=== PATIENT | male | born 1955 | race Caucasian/White ===

== ENCOUNTER 2017-01-27 14:37 | Inpatient (IN) | payer MEDICAID, OTHER ==
[~2017-01-27] VITALS: Ht 170.2 cm; Wt 91.8 kg
[~2017-01-27 14:37] MED LIST: FURO20TA PO; HYDR-3535 PO; ISOS30TA3 PO; JANU100T PO; LISI-360 PO; LYRI75CA PO; METO25 PO; NOVO7030P2 SQ; NOVORP2 SQ; PLAV75TA29 PO; TAMS0.4C67 PO; ZANT150T2 PO; ZOCO40TA PO; [UNRECOGNIZED DRUG - CODE] PO
[2017-01-27 14:48] VITALS: BP 150/77; PULSE 82; RESP 15; TEMP 97.6; O2SAT 96
[2017-01-27] MEDS ORDERED: PIPERACIL-TAZO 4.5 GM PREMIX 100 ML IV STA (14:59)
[2017-01-27] MEDS ORDERED: SODIUM CHLOR 0.9% 1000 ML INJ 1,000 ML IV ONE (14:59)
[2017-01-27] MEDS ORDERED: VANCOMYCIN INJ 1,000 MG in SODIUM CHLOR 0.9% 250 ML INJ 250 ML IV STA (14:59)
[2017-01-27] MEDS ORDERED: UNKNOWN MEDS (15:01)
--- NOTE | 2017-01-27 15:04 | PD ---
HPI Chief Complaint: Skin Problem Time Seen by Provider: 14:59 Travel History International Travel<30 days: No Contact w/Intl Traveler<30days: No Traveled to known affect area: No History of Present Illness HPI 61-year-old male with history of multiple medical issues, diabetic, presents to the ER today after having been seen by urgent care, states that he had accidentally cut his left index finger with a knife 3 days ago and has been getting more swollen and painful. He denies any fevers or any other issues. States the swelling and pain has been going up his entire hand. He was seen by urgent care and they told him to come in for hand infection. Modifying Factors: None Associated Signs & Symptoms: Left index finger injury, finger swelling, pain Risk Factors: Diabetic PFSH Past Medical History Cancer: No Cardiovascular Problems: Yes (CAD) High Cholesterol: Yes Diabetes: Yes Patient Takes Glucophage: No Diminished Hearing: No Endocrine: Yes Gastrointestinal Disorders: Yes (GERD) GERD: Yes Genitourinary: Yes (HEMATURIA) Hepatitis: No Hiatal Hernia: No Hypertension: Yes Immune Disorder: No Musculoskeletal: Yes (CHRONIC BACK PAIN, ARTHRITIS) Neurologic: Yes (NEUROPATHY LEGS/ FEET) Psychiatric: No Respiratory: No Immunizations Current: No Thyroid Disease: No Past Surgical History AICD: No Eye Surgery: Yes (NEELA. CATARACT EXTR., NEELA. LASIK) Joint Replacement: No Pacemaker: No Other Surgery: Yes (L foot surgery) Social History Alcohol Use: No Tobacco Use: No (VAPOR) Substance Use: No Allergies-Medications (Allergen,Severity, Reaction): Coded Allergies: No Known Allergies (Verified , 01/27/17) Reported Meds & Prescriptions Reported Meds & Active Scripts Active Reported Lisinopril 10 Mg Tab Unknown Dose PO DAILY [Insulin 70 30] [Unknown Meds] Lyrica (Pregabalin) 75 Mg Cap 75 Mg PO DAILY Plavix (Clopidogrel Bisulfate) 75 Mg Tab 75 Mg PO DAILY Review of Systems Except as stated in HPI: all other systems reviewed are Neg Physical Exam Narrative GENERAL: Well-developed obese middle age white male patient currently in mild distress. Awake and oriented 3. SKIN: Focused skin assessment warm/dry. HEAD: Atraumatic. Normocephalic. EYES: Pupils equal and round. No scleral icterus. No injection or drainage. ENT: No nasal bleeding or discharge. Mucous membranes pink and moist. NECK: Trachea midline. No JVD. CARDIOVASCULAR: Regular rate and rhythm. No murmur appreciated. RESPIRATORY: No accessory muscle use. Clear to auscultation. Breath sounds equal bilaterally. GASTROINTESTINAL: Abdomen soft, non-tender, nondistended. Hepatic and splenic margins not palpable. MUSCULOSKELETAL: No obvious deformities. No clubbing. No cyanosis. No edema. EXTREMITIES: No clubbing, cyanosis, or edema. No joint tenderness, effusion, or edema noted. There is notable small puncture wound on the PIP area of the second left digit with surrounding erythema and intense erythema, tenderness to palpation and edema of the second digit with notable streaking up the hand. Pain with flexion. Concerning for tenosynovitis. NEUROLOGICAL: Awake and alert. No obvious cranial nerve deficits. Motor grossly within normal limits. Normal speech. PSYCHIATRIC: Appropriate mood and affect; insight and judgment normal. Data Data Last Documented VS Vital Signs Date Time Temp Pulse Resp B/P (MAP) Pulse Ox O2 Delivery O2 Flow Rate FiO2 01/27/17 15:29 73 20 147/70 (95) 97 01/27/17 14:48 97.6 Orders Orders Complete Blood Count With Diff (01/27/17 14:59) Comprehensive Metabolic Panel (01/27/17 14:59) Lactic Acid Sepsis Protocol (01/27/17 14:59) Blood Culture (01/27/17 14:59) Blood Glucose (01/27/17 14:59) Ecg Monitoring (01/27/17 14:59) Iv Access Insert/Monitor (01/27/17 14:59) Oximetry (01/27/17 14:59) Oxygen Administration (01/27/17 14:59) Piperacil-Tazo 4.5 Gm Premix (Zosyn 4.5 (01/27/17 14:59) Vancomycin Inj (Vancomycin Inj) (01/27/17 14:59) Sodium Chlor 0.9% 1000 Ml Inj (Ns 1000 M (01/27/17 14:59) Finger ([id number]) (01/27/17 15:04) Insulin Human Regular Inj (Novolin R Inj (01/27/17 16:00) Consult Hand Surgery (01/27/17 ) Admit Order (Ed Use Only) (01/27/17 16:06) Labs Laboratory Tests Test 01/27/17 15:15 01/27/17 15:20 White Blood Count 9.2 TH/MM3 Red Blood Count 4.11 MIL/MM3 Hemoglobin 11.8 GM/DL Hematocrit 34.5 % Mean Corpuscular Volume 83.9 FL Mean Corpuscular Hemoglobin 28.7 PG Mean Corpuscular Hemoglobin Concent 34.2 % Red Cell Distribution Width 12.8 % Platelet Count 213 TH/MM3 Mean Platelet Volume 8.5 FL Neutrophils (%) (Auto) 63.3 % Lymphocytes (%) (Auto) 29.6 % Monocytes (%) (Auto) 5.0 % Eosinophils (%) (Auto) 1.2 % Basophils (%) (Auto) 0.9 % Neutrophils # (Auto) 5.8 TH/MM3 Lymphocytes # (Auto) 2.7 TH/MM3 Monocytes # (Auto) 0.5 TH/MM3 Eosinophils # (Auto) 0.1 TH/MM3 Basophils # (Auto) 0.1 TH/MM3 CBC Comment DIFF FINAL Differential Comment Blood Urea Nitrogen 27 MG/DL Creatinine 1.90 MG/DL Total Protein 7.3 GM/DL Albumin 2.4 GM/DL Calcium Level 8.6 MG/DL Aspartate Amino Transf (AST/SGOT) 30 U/L Alanine Aminotransferase (ALT/SGPT) 19 U/L Total Bilirubin 0.5 MG/DL Sodium Level 127 MEQ/L Potassium Level 4.9 MEQ/L Chloride Level 94 MEQ/L Carbon Dioxide Level 24.8 MEQ/L Anion Gap 8 MEQ/L Estimat Glomerular Filtration Rate 36 ML/MIN Lactic Acid Level 0.9 mmol/L MDM Medical Decision Making Medical Screen Exam Complete: Yes Emergency Medical Condition: Yes Medical Record Reviewed: Yes Interpretation(s) Laboratory Tests Test 01/27/17 15:15 01/27/17 15:20 Red Blood Count 4.11 MIL/MM3 (4.50-5.90) Hemoglobin 11.8 GM/DL (13.0-17.0) Hematocrit 34.5 % (39.0-51.0) Blood Urea Nitrogen 27 MG/DL (7-18) Creatinine 1.90 MG/DL (0.60-1.30) Albumin 2.4 GM/DL (3.4-5.0) Sodium Level 127 MEQ/L (136-145) Chloride Level 94 MEQ/L (98-107) Estimat Glomerular Filtration Rate 36 ML/MIN (>89) Differential Diagnosis Tenosynovitis versus cellulitis versus sepsis Narrative Course Exam is concerning for tenosynovitis and IV antibiotics were initiated after cultures were done. X-ray and lab work was otherwise unremarkable except significant electrolyte abnormalities. He was given IV fluids, insulin, and IV antibiotics in the ER. Case was discussed with hand Dr. Batres who would like me to medically admit the patient and he states he will see the patient later. Case was then discussed with Dr. Carballo for admission. Diagnosis Primary Impression: Tenosynovitis of finger Admitting Information Admitting Physician Requests: Admit Susanne Bishop MD Jan 27, 2017 15:04
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
[2017-01-27 15:28] VITALS: O2SAT 94
[2017-01-27 15:29] VITALS: BP 147/70; PULSE 73; RESP 20; O2SAT 97
[2017-01-27 15:33] LABS: AUTOMATED NEUTROPHIL # 5.8 TH/MM3 (1.8-7.7); BASOPHIL # 0.1 TH/MM3 (0-0.2); BASOPHIL % 0.9 % (0.0-2.0); EOSINOPHIL # 0.1 TH/MM3 (0-0.4); EOSINOPHIL % 1.2 % (0.0-4.0); HEMATOCRIT 34.5 % (39.0-51.0); LYMPH % 29.6 % (9.0-44.0); LYMPHOCYTE # 2.7 TH/MM3 (1.0-4.8); MEAN CELL VOLUME 83.9 FL (80.0-100.0); MEAN CORPUSCULAR HEMOGLOBIN 28.7 PG (27.0-34.0); MEAN CORPUSCULAR HGB CONC 34.2 % (32.0-36.0); NEUT % 63.3 % (16.0-70.0); PLATELET COUNT 213 TH/MM3 (150-450); RED BLOOD COUNT 4.11 MIL/MM3 (4.50-5.90); RED CELL DISTRIBUTION WIDTH 12.8 % (11.6-17.2); WHITE BLOOD COUNT 9.2 TH/MM3 (4.0-11.0)
[2017-01-27] MEDS ORDERED: LISI10TA3 PO (15:36)
[2017-01-27] MEDS ORDERED: INSULIN (15:36)
[2017-01-27 15:45] LABS: CHLORIDE 94 MEQ/L (98-107); POTASSIUM 4.9 MEQ/L (3.5-5.1); SODIUM (NA) 127 MEQ/L (136-145)
[2017-01-27 15:46] LABS: HEMO FLAGS DIFF FINAL
[2017-01-27 15:49] LABS: ANION GAP 8 MEQ/L (5-15); BICARBONATE 24.8 MEQ/L (21.0-32.0); BLOOD UREA NITROGEN 27 MG/DL (7-18)
[2017-01-27 15:52] LABS: ALT (GPT) 19 U/L (12-78); AST (GOT) 30 U/L (15-37); GLOMERULAR FILTRATION RATE 36 ML/MIN (>89)
[2017-01-27 15:53] LABS: TOTAL BILIRUBIN ADULT 0.5 MG/DL (0.2-1.0)
[2017-01-27] MEDS ORDERED: INSULIN HUMAN REGULAR 1,000 UNITS/10 ML VIAL IV PUSH ONE (16:00)
[2017-01-27] MEDS ORDERED: SODIUM CHLOR 0.9% 1000 ML INJ 1,000 ML IV SCH (16:06)
[2017-01-27 16:11] LABS: ALKALINE PHOSPHATASE 147 U/L (45-117)
[2017-01-27] MEDS ORDERED: NALOXONE HCL 0.4 MG/ML AMP IV PRN (16:15)
[2017-01-27] MEDS ORDERED: SENNOSIDES 8.6 MG TAB PO PRN (16:15)
[2017-01-27] MEDS ORDERED: ACETAMINOPHEN 325 MG TAB PO PRN (16:15)
[2017-01-27] MEDS ORDERED: LACTULOSE SYRUP 20 GM/30 ML CUP PO PRN (16:15)
[2017-01-27] MEDS ORDERED: SODIUM CHLORIDE 0.9% FLUSH 10 ML FLUSH IV FLUSH PRN (16:15)
[2017-01-27] MEDS ORDERED: BISACODYL 10 MG SUPP RECTAL PRN (16:15)
[2017-01-27] MEDS ORDERED: GLUCAGON 1 MG/ML VIAL OTHER PRN (16:15)
[2017-01-27] MEDS ORDERED: ACETAMINOPHEN/HYDROcodone 325 MG/5 MG TAB PO PRN (16:15)
[2017-01-27] MEDS ORDERED: Vancomycin Consult Pharmacy 1 EA OTHER SCH (16:15)
[2017-01-27] MEDS ORDERED: DEXTROSE 50% IN WATER 50 ML VIAL(D50) IV PRN (16:15)
[2017-01-27] MEDS ORDERED: MAGNESIUM HYDROXIDE SUSP 30 ML CUP PO PRN (16:15)
[2017-01-27] MEDS ORDERED: ENOXAPARIN SODIUM 40 MG/0.4 ML SYRINGE SQ SCH (17:00)
--- NOTE | 2017-01-27 17:35 | HHI.HP ---
[facility] Service [facility] Primary Care Physician Rainer Farooq MD Admission Diagnosis left index tenosynovitis Diagnoses: (1) DM type 2 (diabetes mellitus, type 2) (2) PAD (peripheral artery disease) (3) Tenosynovitis of finger Diagnosis: Principal (4) ALISHA (acute kidney injury) Travel History International Travel<30 Days: No Contact w/Intl Traveler <30 Da: No Traveled to Known Affected Are: No History of Present Illness This is a very pleasant 61 year-old female with past medical history of diabetes and peripheral vascular disease who presents after cutting his left index finger on a knife 3 days ago. He started to develop redness and swelling 2 days ago. He started taking some Keflex that he had at home yesterday however he presented to the ER today as the finger continued to be swollen and painful. He describes a sharp pulsating pain which is 8 out of 10 in nature. He denies any fevers or chills. Denies any drainage from the finger. He states he cannot bend the finger. Review of Systems Constitutional: DENIES: Fever, Chills Eyes: COMPLAINS OF: Vision loss, DENIES: Diplopia Ears, nose, mouth, throat: DENIES: Tinnitus, Hoarseness Respiratory: DENIES: Cough, Shortness of breath Cardiovascular: DENIES: Chest pain, Palpitations Gastrointestinal: DENIES: Abdominal pain, Vomiting Genitourinary: DENIES: Urgency, Dysuria Musculoskeletal: DENIES: Back pain, Neck pain Integumentary: DENIES: Rash Hematologic/lymphatic: DENIES: Lymphadenopathy Neurologic: DENIES: Abnormal gait, Headache Psychiatric: DENIES: Anxiety, Confusion Past Family Social History Past Medical History Type 2 diabetes Diabetic retinopathy and he is legally blind Diabetic peripheral neuropathy Chronic kidney disease stage III Hypertension Peripheral arterial disease status post bypass in the right leg BPH and I can see from the records that he is supposed to be on Flomax History of hematuria Carpal tunnel syndrome Reported Medications Allergies Coded Allergies Type Severity Reaction Last Updated Verified No Known Allergies 01/27/17 Yes Active Scripts Medications Dose Route/Sig Max Daily Dose Days Date Category Lisinopril 10 Mg Tab Unknown Dose PO DAILY 01/27/17 Reported [Insulin 70 30] 01/27/17 Reported [Unknown Meds] 01/27/17 Reported Lyrica (Pregabalin) 75 Mg Cap 75 Mg PO DAILY 06/26/16 Reported Plavix (Clopidogrel Bisulfate) 75 Mg Tab 75 Mg PO DAILY 06/26/16 Reported Allergies: Coded Allergies: No Known Allergies (Verified , 01/27/17) Family History Diabetes in the mother Social History He does have vape Denies alcohol use Physical Exam Vital Signs Vital Signs Date Time Temp Pulse Resp B/P (MAP) Pulse Ox O2 Delivery O2 Flow Rate FiO2 01/27/17 15:29 73 20 147/70 (95) 97 01/27/17 15:28 94 01/27/17 14:48 97.6 82 15 150/77 (101) 96 Physical Exam GENERAL: Well-nourished, well-developed pleasant male patient. SKIN: Warm and dry. HEAD: Normocephalic. EYES: No scleral icterus. No injection or drainage. NECK: Supple, trachea midline. No JVD or lymphadenopathy. CARDIOVASCULAR: Regular rate and rhythm without murmurs, gallops, or rubs. RESPIRATORY: Breath sounds equal bilaterally. No accessory muscle use. GASTROINTESTINAL: Abdomen soft, non-tender, nondistended. EXTREMITIES: The patient's left index finger is swollen and erythematous and he has a small laceration on the anterior aspect, he is unable to flex the finger. NEUROLOGICAL: Awake, alert, and oriented x 3. Non-focal. Laboratory Laboratory Tests Test 01/27/17 15:15 01/27/17 15:20 White Blood Count 9.2 Red Blood Count 4.11 Hemoglobin 11.8 Hematocrit 34.5 Mean Corpuscular Volume 83.9 Mean Corpuscular Hemoglobin 28.7 Mean Corpuscular Hemoglobin Concent 34.2 Red Cell Distribution Width 12.8 Platelet Count 213 Mean Platelet Volume 8.5 Neutrophils (%) (Auto) 63.3 Lymphocytes (%) (Auto) 29.6 Monocytes (%) (Auto) 5.0 Eosinophils (%) (Auto) 1.2 Basophils (%) (Auto) 0.9 Neutrophils # (Auto) 5.8 Lymphocytes # (Auto) 2.7 Monocytes # (Auto) 0.5 Eosinophils # (Auto) 0.1 Basophils # (Auto) 0.1 CBC Comment DIFF FINAL Differential Comment Blood Urea Nitrogen 27 Creatinine 1.90 Random Glucose 515 Total Protein 7.3 Albumin 2.4 Calcium Level 8.6 Alkaline Phosphatase 147 Aspartate Amino Transf (AST/SGOT) 30 Alanine Aminotransferase (ALT/SGPT) 19 Total Bilirubin 0.5 Sodium Level 127 Potassium Level 4.9 Chloride Level 94 Carbon Dioxide Level 24.8 Anion Gap 8 Estimat Glomerular Filtration Rate 36 Lactic Acid Level 0.9 Date/Time Source Procedure Growth Status 01/27/17 15:20 Blood Peripheral Aerobic Blood Culture Pending Received 01/27/17 15:20 Blood Peripheral Anaerobic Blood Culture Pending Received Result Diagram: 01/27/17 1515 01/27/17 1515 Imaging X-ray images of left hand reviewed by me and shows left index soft tissue swelling Caprini VTE Risk Assessment Caprini VTE Risk Assessment: No/Low Risk (score <= 1) Caprini Risk Assessment Model Point Value = 1 Point Value = 2 Point Value = 3 Point Value = 5 Age 41-60 Minor surgery BMI > 25 kg/m2 Swollen legs Varicose veins or History of unexplained or recurrent spontaneous Oral contraceptives or hormone replacement Sepsis (< 1 month) Serious lung disease, including pneumonia (< 1 month) Abnormal pulmonary function Acute myocardial infarction Congestive heart failure (< 1 month) History of inflammatory bowel disease Medical patient at bed rest Age 61-74 Arthroscopic surgery Major open surgery (> 45 min) Laparoscopic surgery (> 45 min) Malignancy Confined to bed (> 72 hours) Immobilizing plaster cast Central venous access Age >= 75 History of VTE Family history of VTE Factor V Leiden Prothrombin [id number] Lupus anticoagulant Anticardiolipin antibodies Elevated serum homocysteine Heparin-induced thrombocytopenia Other congenital or acquired thrombophilia Stroke (< 1 month) Elective arthroplasty Hip, pelvis, or leg fracture Acute spinal cord injury (< 1 month) Prophylaxis Regimen Total Risk Factor Score Risk Level Prophylaxis Regimen 0-1 Low Early ambulation 2 Moderate Order ONE of the following: *Sequential Compression Device (SCD) *Heparin 5000 units SQ BID 3-4 Higher Order ONE of the following medications: *Heparin 5000 units SQ TID *Enoxaparin/Lovenox 40 mg SQ daily (WT < 150 kg, CrCl > 30 mL/min) *Enoxaparin/Lovenox 30 mg SQ daily (WT < 150 kg, CrCl > 10-29 mL/min) *Enoxaparin/Lovenox 30 mg SQ BID (WT < 150 kg, CrCl > 30 mL/min) AND/OR *Sequential Compression Device (SCD) 5 or more Highest Order ONE of the following medications: *Heparin 5000 units SQ TID (Preferred with Epidurals) *Enoxaparin/Lovenox 40 mg SQ daily (WT < 150 kg, CrCl > 30 mL/min) *Enoxaparin/Lovenox 30 mg SQ daily (WT < 150 kg, CrCl > 10-29 mL/min) *Enoxaparin/Lovenox 30 mg SQ BID (WT < 150 kg, CrCl > 30 mL/min) AND *Sequential Compression Device (SCD) Assessment and Plan Assessment and Plan --Left index finger infection and tenosynovitis status post cutting his finger with a knife 3 days ago - Will admit for IV antibiotics vancomycin and cefepime. Dr. Batres hand surgery has been consulted and will see the patient. -Type 2 diabetes uncontrolled with hyperglycemia - he has received 6 units regular insulin in the ER. We'll continue with NovoLog sliding scale. Start Levemir in the morning. -Diabetic retinopathy and he is legally blind -Diabetic peripheral neuropathy - continue Lyrica -Acute kidney injury on top of Chronic kidney disease stage III - give gentle IV fluids and will repeat BMP in the morning. -Pseudohyponatremia secondary to hyperglycemia -Hypertension - home dose of lisinopril needs to be reconciled. For now we'll give him 10 mg daily. -Peripheral arterial disease status post bypass in the right leg - continue Plavix. -DVT prophylaxis with SCDs Courtney Carballo MD Jan 27, 2017 17:35
[2017-01-27] MEDS: ACETAMINOPHEN/HYDROcodone 325 MG/7.5 MG TAB PO PRN ×2 (19:40→23:50)
[2017-01-27] MEDS: CEFEPIME INJ 1,000 MG in SODIUM CHLORIDE 0.9% INJ 100 ML IV SCH (19:40)
[2017-01-27 20:00] VITALS: BP 169/81; PULSE 76; RESP 20; TEMP 98; O2SAT 99
[2017-01-27] MEDS: DOCUSATE SODIUM 50 MG/SENNA 8.6 MG TAB PO SCH (20:46)
[2017-01-27] MEDS: SODIUM CHLORIDE 0.9% FLUSH 10 ML FLUSH IV FLUSH SCH (20:46)
[2017-01-27] MEDS: INSULIN ASPART SUPPLEMENTAL SCALE SQ SCH (20:50)
--- NOTE | 2017-01-27 21:18 | MB ---
cc: CLAY SINGLETARY MD DATE OF CONSULTATION 01/27/17 HISTORY OF PRESENT ILLNESS The patient is a 61-year-old [id number] gentleman who suffers from diabetic induced retinopathy and is legally blind who was admitted today with a left index finger infection. 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 He went to an outside urgent care and was referred here. PAST MEDICAL HISTORY 1. Coronary artery disease, 2. High cholesterol, 3. Diabetes, 4. GERD, 5. Hematuria, 6. Hypertension, 7. Chronic back and neck pain 8. Upper and lower extremity neuropathy PAST SURGICAL HISTORY 1. Bilateral cataracts, 2. bilateral LASIK 3. Left foot surgery. SOCIAL HISTORY He does not smoke. ALLERGIES NO KNOWN DRUG ALLERGIES. MEDICATIONS 1. Lisinopril. 2. Insulin. 3. Lyrica. 4. Plavix. REVIEW OF SYSTEMS Patient does not complain of any headaches or ringing in his ears. He does not complain of any cough, wheeze or shortness of breath. He does not complain of any chest pain or palpitations. He does not complain of any nausea, vomiting or abdominal pain. He is not complaining of any burning, frequency or urgency with urination. He is complaining of numbness and tingling in both hands and legs. This has been ongoing. He is not complaining of any lesions, rashes or eruptions on his skin. He is not complaining of any night sweats, fevers or chills. IMAGING STUDIES X-ray examination left hand was performed, reviewed, revealed no fracture or dislocation. No foreign bodies, slight soft tissue swelling. LABORATORY FINDINGS White blood cell count 9.2000. BUN, creatinine 27 and 1.90, random glucose was 515, however. PHYSICAL EXAMINATION GENERAL: He is well-developed, well-nourished in no apparent stress lying comfortably in his bed. He is awake, alert and oriented x3. He is very pleasant. VITAL SIGNS: Temperature is 97.6, blood pressure 147/70, heart rate 73, respiratory rate 20, pulse ox 97% on room air. EXTREMITIES: His left upper extremity is being elevated in a sling. His left index finger is slightly edematous and slightly erythematous volarly and has a small head in the PIP flexion crease. There is mild erythema and edema proximally which stops in the palm. There is no proximal streaking. There is no epitrochlear adenopathy palpable. It does cause him discomfort doing range of motion examination of his finger. His finger, hand and forearm are all soft. IMPRESSION Left index finger infection. PLAN I discussed this with the patient and his nurse and he provided informed verbal consent and at the bedside had a limited incision and drainage of the left index finger. I uses an 18 gauge blunt needle after sterilizing the skin and used this to elevate the eschar that had formed in the PIP joint and a few cc of obvious pus. This was sampled and passed off the field as a specimen. The patient had some immediate relief. The finger was then gently dressed. There was no bleeding. Capillary refill is less than 2 seconds at the fingertip. The patient tolerated the procedure well. MD HERIBERTO Qureshi III/ /8:36 PM /8:49 PM
[2017-01-28] VITALS: BP 191/99; PULSE 70; RESP 20; TEMP 97.6; O2SAT 99
[2017-01-28] MEDS ORDERED: ENALAPRILAT 2.5 MG/2 ML VIAL IV PUSH PRN (01:00)
[2017-01-28] MEDS: ACETAMINOPHEN/HYDROcodone 325 MG/7.5 MG TAB PO PRN ×2 (06:33→11:48)
[2017-01-28] MEDS: INSULIN ASPART SUPPLEMENTAL SCALE SQ SCH ×2 (06:36→12:14)
[2017-01-28 07:15] LABS: BICARBONATE 26.1 MEQ/L (21.0-32.0)
[2017-01-28 08:00] VITALS: BP 145/86; PULSE 67; RESP 17; TEMP 96.7; O2SAT 96
[2017-01-28] MEDS: CEFEPIME INJ 1,000 MG in SODIUM CHLORIDE 0.9% INJ 100 ML IV SCH (08:23)
[2017-01-28] MEDS: SODIUM CHLORIDE 0.9% FLUSH 10 ML FLUSH IV FLUSH SCH (08:24)
[2017-01-28] MEDS: DOCUSATE SODIUM 50 MG/SENNA 8.6 MG TAB PO SCH (08:31)
[2017-01-28] MEDS ORDERED: CLOPIDOGREL 75 MG TAB PO SCH (09:00)
[2017-01-28] MEDS ORDERED: LISINOPRIL 10 MG TAB PO SCH (09:00)
[2017-01-28] MEDS ORDERED: PREGABALIN 75 MG CAP PO SCH (09:00)
[2017-01-28] MEDS ORDERED: VANCOMYCIN INJ 1,250 MG in SODIUM CHLOR 0.9% 250 ML INJ 250 ML IV SCH (10:00)
[2017-01-28] MEDS ORDERED: VANCOMYCIN INJ 1,500 MG in SODIUM CHLORID 0.9% 500 ML INJ 500 ML IV SCH (11:00)
[2017-01-28 12:00] VITALS: BP 151/87; PULSE 69; RESP 17; TEMP 97.7; O2SAT 99
[2017-01-28] MEDS ORDERED: CIPR-9 PO (13:38)
--- NOTE | 2017-01-28 13:41 | HHI.PR ---
Subjective Remarks patient seen in follow up for left index tenosynovitis I and D yesterday with some improvement of ROM and pain per patient Objective Vitals Vital Signs Date Time Temp Pulse Resp B/P (MAP) Pulse Ox O2 Delivery O2 Flow Rate FiO2 01/28/17 12:00 97.7 69 17 151/87 (108) 99 01/28/17 08:00 96.7 67 17 145/86 (105) 96 01/28/17 00:00 97.6 70 20 191/99 (129) 99 01/27/17 20:00 98.0 76 20 169/81 (110) 99 01/27/17 18:14 01/27/17 15:29 73 20 147/70 (95) 97 01/27/17 15:28 94 01/27/17 14:48 97.6 82 15 150/77 (101) 96 I/O 01/27/17 01/27/17 01/27/17 01/28/17 01/28/17 01/28/17 07:00 15:00 23:00 07:00 15:00 23:00 Intake Total 300 ml 100 ml Balance 300 ml 100 ml Intake IV Total 300 ml 100 ml Result Diagram: 01/27/17 1515 01/28/17 0555 Imaging Last Impressions Finger X-Ray 01/27/17 1504 Signed Impressions: Service Date/Time: Friday, January 27, 2017 15:07 - CONCLUSION: 1. No fracture or dislocation. No foreign bodies. Slight soft tissue swelling. Gilberto Burnham MD Objective Remarks Diffuse evidence of Tinea GENERAL: This is a well-nourished, well-developed patient, complaining of hand swelling CARDIOVASCULAR: Regular rate and rhythm without murmurs, gallops, or rubs. RESPIRATORY: Clear to auscultation. Breath sounds equal bilaterally. No wheezes , rales, or rhonchi. GASTROINTESTINAL: Abdomen soft, non-tender, nondistended. Normal active bowel sounds MUSCULOSKELETAL: left first digit swelling and erythema, Extremities without clubbing, cyanosis, or edema. NEURO: Alert & Oriented x4 to person, place, time, situation. Moves all ext x4 A/P Problem List: (1) DM type 2 (diabetes mellitus, type 2) ICD Code: E11.9 - Type 2 diabetes mellitus without complications Plan: uncontrolled due to poor adherence and with neuropathy, retinopathy and nephropathy SSI, ADA diet, Insulin HG a1 c pending (2) PAD (peripheral artery disease) ICD Code: I73.9 - Peripheral vascular disease, unspecified Plan: cont plavix (3) Tenosynovitis of finger ICD Code: M65.9 - Synovitis and tenosynovitis, unspecified Status: Acute Plan: S/P I and D 01/27 blaum follow cultures to deescalate Cefepime and Vanco IV (4) ALISHA (acute kidney injury) ICD Code: N17.9 - Acute kidney failure, unspecified Plan: improved after IVF follow in patient with known DM Nephropathy avoid nephrotoxins (5) Tinea corporis ICD Code: B35.4 - Tinea corporis Plan: clotrimazole, control BG (6) Hyponatremia ICD Code: E87.1 - Hypo-osmolality and hyponatremia Plan: corrected with ivf and improved BG Discharge Planning maybe in am on po abx pending cultures Kadie Turcios MD Jan 28, 2017 13:41
--- NOTE | 2017-01-28 13:42 | HHI.PR ---
Subjective Remarks pt feels better re finger Objective Vital Signs Date Time Temp Pulse Resp B/P (MAP) Pulse Ox O2 Delivery O2 Flow Rate FiO2 01/28/17 12:00 97.7 69 17 151/87 (108) 99 01/28/17 08:00 96.7 67 17 145/86 (105) 96 01/28/17 00:00 97.6 70 20 191/99 (129) 99 01/27/17 20:00 98.0 76 20 169/81 (110) 99 01/27/17 18:14 01/27/17 15:29 73 20 147/70 (95) 97 01/27/17 15:28 94 01/27/17 14:48 97.6 82 15 150/77 (101) 96 I/O 01/27/17 01/27/17 01/27/17 01/28/17 01/28/17 01/28/17 07:00 15:00 23:00 07:00 15:00 23:00 Intake Total 300 ml 100 ml Balance 300 ml 100 ml Intake IV Total 300 ml 100 ml Result Diagram: 01/27/17 1515 01/28/17 0555 Objective Remarks left IF significantly improved; no erythema, no drainage; edema improved no streaking anywhere all surfaces soft Assessment and Plan Problem List: (1) Tenosynovitis of finger ICD Codes: M65.9 - Synovitis and tenosynovitis, unspecified Status: Acute Plan: rx cipro for 10 days keep finger clean Shant Batres III, MD Jan 28, 2017 13:42
[2017-01-28] MEDS ORDERED: CLOTRIMAZOLE 1% CREAM 15 GM TOPICAL SCH (13:45)
--- NOTE | 2017-01-28 14:24 | HHI.DCPOC ---
Discharge Care Plan Diagnosis: (1) DM type 2 (diabetes mellitus, type 2) (2) Tenosynovitis of finger Goals to Promote Your Health * To prevent worsening of your condition and complications * To maintain your health at the optimal level Directions to Meet Your Goals Take your medications as prescribed Follow your dietary instruction Follow activity as directed Keep your appointments as scheduled Take your immunizations and boosters as scheduled If your symptoms worsen call your PCP, if no PCP go to Urgent Care Center or Emergency Room Smoking is Dangerous to Your Health. Avoid second hand smoke Call the 24-hour hour crisis hotline for domestic abuse at Kadie Turcios MD Jan 28, 2017 14:24
[2017-01-28] MEDS ORDERED: CLOT1CRE8 TOPICAL (14:26)
--- NOTE | 2017-01-28 14:28 | HHI.DS ---
Discharge Summary Admission Date Jan 27, 2017 at 16:07 Discharge Date: Jan 28, 2017 Admitting Diagnosis left index tenosynovitis (1) DM type 2 (diabetes mellitus, type 2) ICD Code: E11.9 - Type 2 diabetes mellitus without complications (2) PAD (peripheral artery disease) ICD Code: I73.9 - Peripheral vascular disease, unspecified (3) Tenosynovitis of finger ICD Code: M65.9 - Synovitis and tenosynovitis, unspecified Status: Acute (4) ALISHA (acute kidney injury) ICD Code: N17.9 - Acute kidney failure, unspecified (5) Tinea corporis ICD Code: B35.4 - Tinea corporis (6) Hyponatremia ICD Code: E87.1 - Hypo-osmolality and hyponatremia Procedures I&D left index finger Brief History - From Admission This is a very pleasant 61 year-old female with past medical history of diabetes and peripheral vascular disease who presents after cutting his left index finger on a knife 3 days ago. He started to develop redness and swelling 2 days ago. He started taking some Keflex that he had at home yesterday however he presented to the ER today as the finger continued to be swollen and painful. He describes a sharp pulsating pain which is 8 out of 10 in nature. He denies any fevers or chills. Denies any drainage from the finger. He states he cannot bend the finger. CBC/BMP: 01/27/17 1515 01/28/17 0555 Significant Findings Laboratory Tests Test 01/27/17 15:15 01/27/17 15:20 01/28/17 05:55 Red Blood Count 4.11 MIL/MM3 (4.50-5.90) Hemoglobin 11.8 GM/DL (13.0-17.0) Hematocrit 34.5 % (39.0-51.0) Blood Urea Nitrogen 27 MG/DL (7-18) 22 MG/DL (7-18) Creatinine 1.90 MG/DL (0.60-1.30) 1.50 MG/DL (0.60-1.30) Random Glucose 515 MG/DL (74-106) 350 MG/DL (74-106) Albumin 2.4 GM/DL (3.4-5.0) Alkaline Phosphatase 147 U/L (45-117) Sodium Level 127 MEQ/L (136-145) Chloride Level 94 MEQ/L (98-107) Estimat Glomerular Filtration Rate 36 ML/MIN (>89) 48 ML/MIN (>89) Calcium Level 8.2 MG/DL (8.5-10.1) Imaging Last Impressions Finger X-Ray 01/27/17 1504 Signed Impressions: Service Date/Time: Friday, January 27, 2017 15:07 - CONCLUSION: 1. No fracture or dislocation. No foreign bodies. Slight soft tissue swelling. Gilberto Burnham MD PE at Discharge Diffuse evidence of Tinea GENERAL: This is a well-nourished, well-developed patient, complaining of hand swelling CARDIOVASCULAR: Regular rate and rhythm without murmurs, gallops, or rubs. RESPIRATORY: Clear to auscultation. Breath sounds equal bilaterally. No wheezes , rales, or rhonchi. GASTROINTESTINAL: Abdomen soft, non-tender, nondistended. Normal active bowel sounds MUSCULOSKELETAL: left first digit swelling and erythema, Extremities without clubbing, cyanosis, or edema. NEURO: Alert & Oriented x4 to person, place, time, situation. Moves all ext x4 Pt update on day of discharge Please see daily progress note Hospital Course Patient seen and evaluated in follow-up for left index tenosynovitis. Patient did have an I&D along with empiric antibiotics. He was monitored and recommend oral antibiotics and for outpatient follow-up. Is also recommended to continue aggressive management of his diabetes which he had been neglecting. He expressed understanding and the patient was discharged home Pt Condition on Discharge: Good Discharge Disposition: Discharge Home Discharge Time: <= 30 minutes Discharge Instructions DIET: Follow Instructions for: Heart Healthy Diet, Diabetic Diet Activities you can perform: Regular-No Restrictions Follow up Referrals: Hand Surgery - 2 Weeks with Shant Batres III, MD New Medications: Ciprofloxacin (Cipro) 500 Mg Tab 500 MG PO BID for xxxx, #20 TAB 0 Refills Clotrimazole Topical (Clotrimazole AF Topical) 1% Cream 1 APPLIC TOPICAL Q12HR for Infection, #1 TUBE Apply twice a day to skin for 10 days Continued Medications: Clopidogrel (Plavix) 75 Mg Tab 75 MG PO DAILY for Blood Clot Prevention, #30 TAB 0 Refills Lisinopril (Lisinopril) 10 Mg Tab Unknown Dose PO DAILY, #30 TAB 0 Refills Pregabalin (Lyrica) 75 Mg Cap 75 MG PO DAILY, #30 CAP 0 Refills [Insulin 70 30] () [Unknown Meds] () Kadie uTrcios MD Jan 28, 2017 14:28
[2017-01-28 17:33] LABS: HEMOGLOBIN A1a 1.6 %; HEMOGLOBIN A1b 1.1 %; HEMOGLOBIN Ao 71.1 %; HEMOGLOBIN F 2.3 %; HEMOGLOBIN LA1C 3.7 %; HEMOGLOBIN P3 5.9 %
[2017-01-30] MEDS ORDERED: PHARMACY ORDERED LAB ONE (10:45)
== END 2017-01-28 15:35 | disposition home or self-care (01) | DRG 558 ==
LOC: PHED 14:37 → PHEDA 16:07 → PH3B 18:14
PROVIDERS: ADMIT Hospitalist; ATTEND Hospitalist
PROC: 0H9GXZX Drainage of Left Hand Skin, External Approach, Diagnostic (ICD-10-PCS; principal; 2017-01-27)
DX: M65.842 Other synovitis and tenosynovitis, left hand (principal); E11.42 Type 2 diabetes mellitus with diabetic polyneuropathy; E11.22 Type 2 diabetes mellitus with diabetic chronic kidney disease; N17.9 Acute kidney failure, unspecified; E87.1 Hypo-osmolality and hyponatremia; N18.3 Chronic kidney disease, stage 3 (moderate); B35.4 Tinea corporis; I12.9 Hypertensive chronic kidney disease with stage 1 through stage 4 chronic kidney disease, or unspecified chronic kidney disease; E11.51 Type 2 diabetes mellitus with diabetic peripheral angiopathy without gangrene; E11.319 Type 2 diabetes mellitus with unspecified diabetic retinopathy without macular edema; Z79.4 Long term (current) use of insulin; S61.211A Laceration without foreign body of left index finger without damage to nail, initial encounter; W26.0XXA Contact with knife, initial encounter; H54.8 Legal blindness, as defined in USA; N40.0 Benign prostatic hyperplasia without lower urinary tract symptoms; E11.65 Type 2 diabetes mellitus with hyperglycemia; I25.10 Atherosclerotic heart disease of native coronary artery without angina pectoris; E78.00 Pure hypercholesterolemia, unspecified; K21.9 Gastro-esophageal reflux disease without esophagitis; M54.9 Dorsalgia, unspecified; M19.90 Unspecified osteoarthritis, unspecified site; G89.29 Other chronic pain; E66.9 Obesity, unspecified; Z68.31 Body mass index [BMI] 31.0-31.9, adult; Y93.89 Activity, other specified; Y92.89 Other specified places as the place of occurrence of the external cause
CPT/HCPCS: 73140; 80048; 80053; 82948; 83036; 83605; 85025; 87040; 87070; 87205; 96365; J0692; J1650; J1815; J2543; J3370; J7030; J7040; J7050

== ENCOUNTER 2017-02-08 13:41 | Emergency (ER) | payer OTHER ==
[~2017-02-08] VITALS: Ht 170.2 cm; Wt 95.0 kg
[~2017-02-08 13:41] MED LIST changes: +CIPR-9 PO; +CLOT1CRE8 TOPICAL; -FURO20TA PO; -HYDR-3535 PO; +INSULIN; -ISOS30TA3 PO; -JANU100T PO; -LISI-360 PO; +LISI10TA3 PO; -METO25 PO; -NOVO7030P2 SQ; -NOVORP2 SQ; -TAMS0.4C67 PO; +UNKNOWN MEDS; -ZANT150T2 PO; -ZOCO40TA PO; -[UNRECOGNIZED DRUG - CODE] PO
[2017-02-08 13:56] VITALS: BP 157/78; PULSE 78; RESP 20; TEMP 97.8; O2SAT 98
--- NOTE | 2017-02-08 14:58 | PD ---
HPI Chief Complaint: Skin Problem Time Seen by Provider: 14:54 Travel History International Travel<30 days: No Contact w/Intl Traveler<30days: No Traveled to known affect area: No History of Present Illness HPI Patient presents primarily for a refill of his antibiotics and to discuss an antifungal. Recently admitted to the hospital for left finger tenosynovitis and tinea corporis. Reports he does have follow-up with a hand surgeon. Denies any nausea vomiting diarrhea or fever. No new rashes. Reports that his finger is much better however it is still swollen PFSH Past Medical History Hx Anticoagulant Therapy: Yes Cancer: No Cardiovascular Problems: Yes (CAD) High Cholesterol: Yes Diabetes: Yes Patient Takes Glucophage: Yes Diminished Hearing: No Endocrine: Yes Gastrointestinal Disorders: Yes (GERD) GERD: Yes Genitourinary: Yes (HEMATURIA) Hepatitis: No Hiatal Hernia: No Hypertension: Yes Immune Disorder: No Musculoskeletal: Yes (CHRONIC BACK PAIN, ARTHRITIS) Neurologic: Yes (NEUROPATHY LEGS/ FEET) Psychiatric: No Respiratory: No Immunizations Current: No Thyroid Disease: No Past Surgical History AICD: No Eye Surgery: Yes (NEELA. CATARACT EXTR., NEELA. LASIK) Joint Replacement: No Pacemaker: No Other Surgery: Yes (L foot surgery) Social History Alcohol Use: No Tobacco Use: No (VAPOR) Substance Use: No Allergies-Medications (Allergen,Severity, Reaction): Coded Allergies: No Known Allergies (Verified , 02/08/17) Reported Meds & Prescriptions Reported Meds & Active Scripts Active Reported Lisinopril 10 Mg Tab Unknown Dose PO DAILY [Insulin 70 30] [Unknown Meds] Lyrica (Pregabalin) 75 Mg Cap 75 Mg PO DAILY Plavix (Clopidogrel Bisulfate) 75 Mg Tab 75 Mg PO DAILY Review of Systems General / Constitutional: No: Fever Eyes: No: Visual changes HENT: No: Headaches Cardiovascular: No: Chest Pain or Discomfort Respiratory: No: Shortness of Breath Gastrointestinal: No: Abdominal Pain Genitourinary: No: Dysuria Musculoskeletal: No: Pain Skin: No Rash Neurologic: No: Weakness Psychiatric: No: Depression Endocrine: No: Polydipsia Hematologic/Lymphatic: No: Easy Bruising Physical Exam Narrative GENERAL: Well-nourished, well-developed patient. SKIN: Focused skin assessment warm/dry. HEAD: Normocephalic. EYES: No scleral icterus. No injection or drainage. NECK: Supple, trachea midline. No JVD or lymphadenopathy. CARDIOVASCULAR: Regular rate and rhythm without murmurs, gallops, or rubs. RESPIRATORY: Breath sounds equal bilaterally. No accessory muscle use. GASTROINTESTINAL: Abdomen soft, non-tender, nondistended. MUSCULOSKELETAL: No cyanosis, or edema. BACK: Nontender without obvious deformity. No CVA tenderness. Left first finger is not cellulitic it is however edematous, tinea was noted to the groin region Data Data Last Documented VS Vital Signs Date Time Temp Pulse Resp B/P (MAP) Pulse Ox O2 Delivery O2 Flow Rate FiO2 02/08/17 13:56 97.8 78 20 157/78 (104) 98 MDM Medical Decision Making Medical Screen Exam Complete: Yes Emergency Medical Condition: Yes Differential Diagnosis Cellulitis, tenosynovitis, tinea corporis, medication noncompliance Narrative Course Assessment and plan discussed with patient at bedside Diagnosis Primary Impression: Tinea corporis Additional Impression: Stenosing tenosynovitis of finger of left hand Additional Instructions: Keep scheduled appointments with specialists. Return with any onset of new symptoms. Follow-up with PCP. Encouraged general wound care. Scripts Ketoconazole Topical (Ketoconazole Topical) 2% Cream 1 APPLIC TOPICAL BID for Fungal Infection, #15 GM 0 Refills Prov: Andre Castro MD 02/08/17 Ciprofloxacin (Cipro) 500 Mg Tab 500 MG PO BID for Infection for 10 Days, TAB 0 Refills Prov: Andre Castro MD 02/08/17 Disposition: 01 DISCHARGE HOME Condition: Good Andre Castro MD Feb 08, 2017 14:58
[2017-02-08] MEDS ORDERED: CIPR-9 PO (15:00)
[2017-02-08] MEDS ORDERED: KETO2CRE TOPICAL (15:00)
== END 2017-02-08 15:12 | disposition home or self-care (01) ==
LOC: PHED 13:41
DX: B35.4 Tinea corporis (principal); M65.9 Synovitis and tenosynovitis, unspecified; E11.9 Type 2 diabetes mellitus without complications; I10 Essential (primary) hypertension; I25.10 Atherosclerotic heart disease of native coronary artery without angina pectoris; M19.90 Unspecified osteoarthritis, unspecified site; G62.9 Polyneuropathy, unspecified
CPT/HCPCS: 99284

== ENCOUNTER 2018-01-15 09:36 | Inpatient (IN) ==
[2018-01-15 11:04] LABS: Baso % (Auto) 0.5 % (0.0-2.0); Eos # (Auto) 0.2 th/mm3 (0.0-0.4); Hemoglobin 10.8 gm/dL (13.0-17.0); Lymph # (Auto) 2.8 th/mm3 (1.0-4.8); Lymph % (Auto) 36.2 % (9.0-44.0); Mean Corpuscular HGB Conc 32.9 % (32.0-36.0); Mean Corpuscular Hemoglobin 28.2 pg (27.0-34.0); Mean Corpuscular Volume 85.8 fL (80.0-100.0); Mean Platelet Volume 7.2 fL (7.0-11.0); Mono # (Auto) 0.5 th/mm3 (0.0-0.9); Mono % (Auto) 6.8 % (0.0-8.0); Neut # (Auto) 4.3 th/mm3 (1.8-7.7); Neut % (Auto) 53.5 % (16.0-70.0); Platelet Count 295 th/mm3 (150-450); Red Blood Count 3.84 mil/mm3 (4.50-5.90); Red Cell Distribution Width 13.6 % (11.6-17.2); White Blood Count 7.8 th/mm3 (4.0-11.0)
[2018-01-15 11:16] LABS: Chloride 107 meq/L (98-107); Potassium 4.2 meq/L (3.5-5.1); Sodium 140 meq/L (136-145)
[2018-01-15 11:20] LABS: Albumin 2.3 g/dL (3.4-5.0); Anion Gap 6 meq/L (5-15); Blood Urea Nitrogen 26 mg/dL (7-18); Carbon Dioxide 26.9 meq/L (21.0-32.0); Glucose,Random 162 mg/dL (74-106)
[2018-01-15 11:23] LABS: Alanine Aminotransferase 18 U/L (12-78); Aspartate Aminotransferase 12 U/L (15-37); Glomerular Filtration Rate 41 mL/min (>89)
[2018-01-15 11:24] LABS: Total Protein 6.4 g/dL (6.4-8.2)
[2018-01-15 11:26] LABS: Alkaline Phosphatase 108 U/L (45-117)
[2018-01-15 11:28] LABS: Troponin I 0.08 ng/mL (0.02-0.05)
[2018-01-15] MEDS ORDERED: Aspirin 325 MG Tablet PO ONE (11:32)
--- NOTE | 2018-01-15 11:48 | XR ---
EXAM DATE: 01/15/2018 11:44 AM EDT AGE/SEX: 62 years / Male INDICATIONS: Cardiac Disease. Patient state he has had shortness of breath for 2 days. CLINICAL DATA: This is the patient's initial encounter. Patient reports that signs and symptoms have been present for 2 days and indicates a pain score of 1/10. MEDICAL/SURGICAL HISTORY: None. None. COMPARISON: No prior exams available for comparison. FINDINGS: A single AP view of the chest demonstrates the lungs to be symmetrically aerated without evidence of mass, infiltrate or effusion. Mild cardiomegaly. Osseous structures are intact. CONCLUSION: Mild cardiomegaly. Clear lungs. Electronically signed by: Bharath Trejo MD 01/15/2018 11:47 AM EDT
--- NOTE | 2018-01-15 13:04 | US ---
EXAM DATE: 01/15/2018 12:59 PM EDT AGE/SEX: 62 years / Male INDICATIONS: Bilateral leg pain. CLINICAL DATA: This is the patient's initial encounter. Patient reports that signs and symptoms have been present for 4 - 6 days and indicates a pain score of 4/10. MEDICAL/SURGICAL HISTORY: Congestive heart failure. Diabetes. Hypercholesterolemia. Hyperten tera. Peripheral artery disease. . COMPARISON: No prior exams available for comparison. TECHNIQUE: Venous ultrasound of both lower extremities was performed from the inguinal ligament to t he proximal calf. Real-time, color Doppler and spectral tracing, compression and augmentation techni ques were used. FINDINGS: Right Leg: Normal compression of the deep venous system from the inguinal region to the proximal stewart f. No echogenic clot is seen. Normal response of the venous system to augmentation and respiration. Left Leg: Normal compression of the deep venous system from the inguinal region to the proximal calf . No echogenic clot is seen. Normal response of the venous system to augmentation and respiration. Other: None. CONCLUSION: 1. Negative exam with no evidence of deep venous thrombosis. Electronically signed by: Toni Ambrocio MD 01/15/2018 1:03 PM EDT
--- NOTE | 2018-01-15 13:41 | ED ---
HPI General Chief complaint: Respiratory Symptoms Stated complaint: Hard to breathe Time Seen by Provider: 01/15/18 10:21 Source: patient Mode of arrival: ambulatory Limitations: no limitations History of Present Illness HPI narrative: Patient is a 62-year-old male who presents to the emergency room with complaints of dyspnea. Patient reports that for the past 2 days, he has been having dyspnea on exertion. Patient reports that he is a smoker with history of hypertension, chronic kidney disease stage III, PVD, PAD, CHF as well as COPD and insulin-dependent diabetes. Patient reports that symptoms began while he was taking in his garden 2 days ago, reports that every time he exerts himself, he gets short of breath. Patient reports that the only thing that makes his symptoms better is when he stops to take a deep breath. Patient reports that he is does have chest pain with his symptoms - reports chest pain only when he takes a deep breath or coughs- currently with no chest pain at this time. 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 Arriola Related Data Home Medications Medication Instructions Recorded Confirmed aspirin [Aspir-81] 325 mg PO DAILY 01/15/18 01/15/18 atorvastatin [Lipitor] 80 mg PO HS 01/15/18 01/15/18 clopidogrel [Plavix] 75 mg PO DAILY 01/15/18 01/15/18 fluticasone [Flonase Allergy 1 spray INTRANASAL DAILY 01/15/18 01/15/18 Relief] furosemide [Lasix] 20 mg PO DAILY 01/15/18 01/15/18 gabapentin [Neurontin] 100 mg PO BID 01/15/18 01/15/18 hydrocodone-acetaminophen [Naco] 1 tab PO Q6H 01/15/18 01/15/18 insulin NPH and regular human 40 unit SUB-Q BID 01/15/18 01/15/18 [Humulin 70/30 U-100 Insulin] insulin regular human [Humulin R 1 sliding scale dose SUB-Q UD 01/15/18 01/15/18 Regular U-100 Insuln] isosorbide mononitrate 30 mg PO DAILY 01/15/18 01/15/18 lidocaine [Lidocaine Pain Relief] 1 patch TOPICAL Q8H 01/15/18 01/15/18 lisinopril 10 mg PO DAILY 01/15/18 01/15/18 metoprolol tartrate 25 mg PO DAILY 01/15/18 01/15/18 pregabalin [Lyrica] 300 mg PO HS 01/15/18 01/15/18 ranitidine HCl [Zantac] 150 mg PO BID 01/15/18 01/15/18 sitagliptin-metformin [Janumet] 1 tab PO DAILY 01/15/18 01/15/18 tamsulosin [Flomax] 0.4 mg PO HS 01/15/18 01/15/18 Allergies Allergy/AdvReac Type Severity Reaction Status Date / Time No Known Allergies Allergy Unverified 01/15/18 09:41 Review of Systems ROS: all other systems reviewed are negative [facility] Medical History Medical History Congestive heart failure (Acute) Diabetes (Acute) High cholesterol (Acute) Hypertension (Acute) PAD (peripheral artery disease) (Acute) Social History Social History Substance History: No History of Abuse Smoking Status: Current every day smoker Tobacco Type: E-Cigarettes How Often Do You Have a Drink Containing Alcohol: Never Recent Travel in [facility] within the Last 8 Weeks: No Recent Out of Country Travel within the Last 8 Weeks: No Immunization History Tetanus Immunization: Unsure Hx Influenza Vaccine This Season: No Exam Narrative Exam Narrative: GENERAL: moderate distress SKIN: Focused skin assessment warm/dry. HEAD: Atraumatic. Normocephalic. EYES: Pupils equal and round. No scleral icterus. No injection or drainage. ENT: No nasal bleeding or discharge. Mucous membranes pink and moist. NECK: Trachea midline. No JVD. CARDIOVASCULAR: Regular rate and rhythm. No murmur appreciated. RESPIRATORY: No accessory muscle use. Clear to auscultation. Breath sounds equal bilaterally. GASTROINTESTINAL: Abdomen soft, non-tender, nondistended. Hepatic and splenic margins not palpable. MUSCULOSKELETAL: No obvious deformities. No clubbing. No cyanosis. No edema. NEUROLOGICAL: Awake and alert. No obvious cranial nerve deficits. Motor grossly within normal limits. Normal speech. PSYCHIATRIC: Appropriate mood and affect; insight and judgment normal. Course Initial Documented Vital Signs Temperature 97.7 F 01/15/18 09:38 Pulse Rate 93 H 01/15/18 09:38 Respiratory Rate 20 01/15/18 09:38 Blood Pressure 152/72 H 01/15/18 09:38 Pulse Oximetry 99 01/15/18 09:38 Last Documented Vital Signs Temperature 97.7 F 01/15/18 09:38 Pulse Rate 79 08/10/18 15:30 Respiratory Rate 18 01/15/18 15:30 Blood Pressure 151/69 H 01/15/18 15:30 Pulse Oximetry 96 01/15/18 11:40 Critical Care Time Critical Care Time: Yes Total Critical Care Time: 30 Attestation: Aggregate critical care time was 30 minutes. Time to perform other separately billable procedures was not included in the critical care time. My time did not include minutes spent treating any other patients simultaneously or on activities that did not directly contribute to the patient's treatment. The services I provided to this patient were to treat and/or prevent clinically significant deterioration that could result in: , decompensation I provided critical care services requiring my management, as noted below: Chart data review, documentation time, medication orders and management, vital sign assessments/reviewing monitor data, ordering and reviewing lab tests, ordering and interpreting/reviewing x-rays and diagnostic studies, care of the patient and discussion of the patient with the admitting physicians. Medical Decision Making MDM Narrative Medical decision making narrative: During the course of the patients emergency department visit, the patients history, examination, and differential diagnosis were reviewed with the patient. The patient was placed on a youth nutritional monitor with oximetry and frequent blood pressure monitoring. The patient had an IV access obtained and blood work sent for analysis. The patient was initially provided aspirin The patients laboratory studies were reviewed and remarkable for troponin of 0.08. Patient was given a dose of aspirin. Patient's d-dimer was elevated at 0.51, given his creatinine 1.7, a VQ scan as well as Doppler ultrasound was ordered. Radiology studies were reviewed and remarkable for x-ray which shows cardiomegaly as well as a Doppler ultrasound which is negative for DVT. VQ scan is pending. Patient does require admission to the hospital as he does have a positive troponin and has dyspnea on exertion concerning for acs. Patient is agreeable to admission to the hospital for further workup. repeat trop 0.08 - case reviewed with Dr. Turcios, will admit to her service and transfer to [place] [facility] Differential Diagnosis Differential Diagnosis: DVT, PE, ACS, arrhythmia, COPD exacerbation, CHF Medical Records Medical records reviewed: Yes I reviewed the patient's medical records. Lab Data Lab results reviewed: Yes I reviewed the patient's lab results. Result diagrams: 01/15/18 10:50 01/15/18 10:50 Lab Results 01/15/18 01/15/18 01/15/18 Range/Units 10:50 10:50 10:50 CBC w Diff Auto diff final WBC 7.8 (4.0-11.0) th/mm3 RBC 3.84 L (4.50-5.90) mil/mm3 Hgb 10.8 L (13.0-17.0) gm/dL Hct 33.0 L (39.0-51.0) % MCV 85.8 (80.0-100.0) fL MCH 28.2 (27.0-34.0) pg MCHC 32.9 (32.0-36.0) % RDW 13.6 (11.6-17.2) % Plt Count 295 (150-450) th/mm3 MPV 7.2 (7.0-11.0) fL Neut % (Auto) 53.5 (16.0-70.0) % Lymph % (Auto) 36.2 (9.0-44.0) % [place] % (Auto) 6.8 (0.0-8.0) % Eos % (Auto) 3.0 (0.0-4.0) % Baso % (Auto) 0.5 (0.0-2.0) % Neut # (Auto) 4.3 (1.8-7.7) th/mm3 Lymph # (Auto) 2.8 (1.0-4.8) th/mm3 [place] # (Auto) 0.5 (0.0-0.9) th/mm3 Eos # (Auto) 0.2 (0.0-0.4) th/mm3 Baso # (Auto) 0.0 (0.0-0.2) th/mm3 WBC Differential . Differential Comment . D-Dimer Quant (PE/DVT) 0.51 H (0.00-0.50) mg/L FEU Sodium 140 (136-145) meq/L Potassium 4.2 (3.5-5.1) meq/L Chloride 107 (98-107) meq/L Carbon Dioxide 26.9 (21.0-32.0) meq/L Anion Gap 6 (5-15) meq/L BUN 26 H (7-18) mg/dL Creatinine 1.70 H (0.60-1.30) mg/dL Estimated GFR 41 L (>89) mL/min Random Glucose 162 H (74-106) mg/dL Calcium 8.0 L (8.5-10.1) mg/dL Total Bilirubin 0.2 (0.2-1.0) mg/dL AST 12 L (15-37) U/L ALT 18 (12-78) U/L Alkaline Phosphatase 108 (45-117) U/L Troponin I 0.08 H (0.02-0.05) ng/mL Total Protein 6.4 (6.4-8.2) g/dL Albumin 2.3 L (3.4-5.0) g/dL 01/15/18 Range/Units 14:28 CBC w Diff WBC (4.0-11.0) th/mm3 RBC (4.50-5.90) mil/mm3 Hgb (13.0-17.0) gm/dL Hct (39.0-51.0) % MCV (80.0-100.0) fL MCH (27.0-34.0) pg MCHC (32.0-36.0) % RDW (11.6-17.2) % Plt Count (150-450) th/mm3 MPV (7.0-11.0) fL Neut % (Auto) (16.0-70.0) % Lymph % (Auto) (9.0-44.0) % [place] % (Auto) (0.0-8.0) % Eos % (Auto) (0.0-4.0) % Baso % (Auto) (0.0-2.0) % Neut # (Auto) (1.8-7.7) th/mm3 Lymph # (Auto) (1.0-4.8) th/mm3 [place] # (Auto) (0.0-0.9) th/mm3 Eos # (Auto) (0.0-0.4) th/mm3 Baso # (Auto) (0.0-0.2) th/mm3 WBC Differential Differential Comment D-Dimer Quant (PE/DVT) (0.00-0.50) mg/L FEU Sodium (136-145) meq/L Potassium (3.5-5.1) meq/L Chloride (98-107) meq/L Carbon Dioxide (21.0-32.0) meq/L Anion Gap (5-15) meq/L BUN (7-18) mg/dL Creatinine (0.60-1.30) mg/dL Estimated GFR (>89) mL/min Random Glucose (74-106) mg/dL Calcium (8.5-10.1) mg/dL Total Bilirubin (0.2-1.0) mg/dL AST (15-37) U/L ALT (12-78) U/L Alkaline Phosphatase (45-117) U/L Troponin I 0.08 H (0.02-0.05) ng/mL Total Protein (6.4-8.2) g/dL Albumin (3.4-5.0) g/dL Imaging Data Attestation: I personally reviewed and interpreted this imaging study as follows : Radiologist's impression: Chest X-Ray 01/15/18 10:46 CONCLUSION: Mild cardiomegaly. Clear lungs. Venous Doppler Study 01/15/18 11:30 CONCLUSION: 1. Negative exam with no evidence of deep venous thrombosis. Pulmonary Perfusion Imaging 01/15/18 11:31 CONCLUSION: 1. No evidence for pulmonary embolus. Discharge Plan Discharge Disposition Patient Disposition: 30 Still Patient Physicians Team ED Provider: Diya Ybarra Primary Care Provider: NON STAFF,PROVIDER Rxs /Orders / Referrals /Forms Prescriptions: No Action atorvastatin [Lipitor] 80 mg Tablet 80 mg PO HS RF: 0 lidocaine [Lidocaine Pain Relief] 4 % Adhesive Patch,Medicated 1 patch TOPICAL Q8H RF: 0 insulin NPH and regular human [Humulin 70/30 U-100 Insulin] 100 unit/mL (70-30 ) Suspension 40 unit SUB-Q BID RF: 0 clopidogrel [Plavix] 75 mg Tablet 75 mg PO DAILY RF: 0 aspirin [Aspir-81] 81 mg Tablet,Delayed Release (Dr/Ec) 325 mg PO DAILY RF: 0 tamsulosin [Flomax] 0.4 mg Capsule,Extended Release 24hr 0.4 mg PO HS RF: 0 hydrocodone-acetaminophen [Naco] 7.5-325 mg Tablet 1 tab PO Q6H RF: 0 ranitidine HCl [Zantac] 150 mg Tablet 150 mg PO BID RF: 0 lisinopril 10 mg Tablet 10 mg PO DAILY RF: 0 furosemide [Lasix] 20 mg Tablet 20 mg PO DAILY RF: 0 gabapentin [Neurontin] 100 mg Capsule 100 mg PO BID RF: 0 fluticasone [Flonase Allergy Relief] 50 mcg/actuation [place],Suspension 1 spray INTRANASAL DAILY RF: 0 pregabalin [Lyrica] 300 mg Capsule 300 mg PO HS RF: 0 sitagliptin-metformin [Janumet] 50-1,000 mg Tablet 1 tab PO DAILY RF: 0 isosorbide mononitrate 30 mg Tablet Extended Release 24 Hr 30 mg PO DAILY RF: 0 insulin regular human [Humulin R Regular U-100 Insuln] 100 unit/mL Solution 1 sliding scale dose SUB-Q UD RF: 0 metoprolol tartrate 25 mg Tablet 25 mg PO DAILY RF: 0 Status ED Status: With Doctor
--- NOTE | 2018-01-15 14:31 | NM ---
EXAM DATE: 01/15/2018 2:14 PM EDT AGE/SEX: 62 years / Male INDICATIONS: Dyspnea. CLINICAL DATA: This is the patient's initial encounter. Patient reports that signs and symptoms have been present for 1 day and indicates a pain score of 0/10. MEDICAL/SURGICAL HISTORY: Congestive heart failure. Diabetes mellitus type II. Hypertension. None. COMPARISON: HPO, CHEST 1V SINGLE AP, 01/15/2018. . DOSE: 1.5 mCi Tc99m DTPA aerosol 8.5 mCi Tc99m MAA IV TECHNIQUE: Following five minutes of tidal breathing of DTPA aerosol, planar images of the lungs wer e performed in eight projections. The patient was then injected with MAA, and eight-view perfusion s can was performed. FINDINGS: Ventilation images are unremarkable. The perfusion lung scan demonstrates a homogenous pattern of uptake in both lungs. No segmental or s ubsegmental defects are seen. CONCLUSION: 1. No evidence for pulmonary embolus. Electronically signed by: Jeremie Clark MD 01/15/2018 2:30 PM EDT
[2018-01-15] MEDS ORDERED: Heparin Drip 25,000 UNIT/250 ML BAG IV.CONT PRN (15:35)
[2018-01-15] MEDS ORDERED: Bisacodyl 10 MG Supp RECTAL PRN (15:57)
[2018-01-15] MEDS ORDERED: Acetaminophen 325 MG Tablet PO PRN (15:57)
[2018-01-15] MEDS ORDERED: Temazepam 15 MG Capsule PO PRN (15:57)
[2018-01-15 16:21] LABS: Activated Partial Thrombo Time 28.8 sec (24.3-30.1); Prothrombin Time 9.8 sec (9.8-11.6)
[2018-01-15] MEDS ORDERED: Dextrose 50% in Water 50 ML Vial IV.PUSH PRN (17:10)
--- NOTE | 2018-01-15 17:27 | P.HPIM ---
History of Present Illness Primary Care Physician: PROVIDER NON STAFF Chief Complaint: Shortness of breath History of Present Illness: Patient is a 62-year-old gentleman with a history of congestive heart failure and chronic tobaccoism who comes in with increased shortness of breath and increased work of breathing over the last 2 days. He was seen in the emergency room and given a nebulizer. He felt immediately improved. He has periodic coughing and shortness of breath dyspnea on exertion as well as 40 pound weight gain and had stopped taking his Lasix at home. Patient says he is not on any nebulizers because "I do not have lung problems ". Stopped taking the Lasix because "it was making him pee". Patient does follow-up with his primary care physician intermittently. He has been taking his diabetes medication and his Flonase and has reported blood pressure medications as well. This point the patient is recommended for further evaluation treatment due to his symptoms. On my review his EKG does not show any EKG changes consistent with ischemia however patient appears to have a congestive heart failure by exam and by x- ray. His x-ray on my review does show some pulmonary vascular congestion. Patient will need to be admitted in the hospital also because his cardiac enzymes are elevated at 0.08. - Diagnosis (1) SOB (shortness of breath) (2) Edema (3) DM2 (diabetes mellitus, type 2) (4) HTN (hypertension) (5) Elevated troponin Inpatient Certification: I certify that the inpatient services were ordered in accordance with Medicare regulations governing the order. This includes certification that hospital inpatient services are reasonable and necessary and in the case of services not specified as inpatient-only under 42 CFR 419.22(n), that they are appropriately provided as inpatient services in accordance to with the 2-midnight benchmark under 43 CFR 412.3(e) Estimated Total Length of Stay (Days): 2 Plans for Post Hospital Care: Not yet determined Review of Systems All other systems reviewed negative except as stated in HPI [facility] - History History Provided By: Patient - Medical History Medical History: Medical History (Last Updated 01/15/18 @ 10:14 by Dulce Watson RN) Congestive heart failure Diabetes High cholesterol Hypertension PAD (peripheral artery disease) - Surgical History Surgical History: Surgical History (Last Updated 01/15/18 @ 17:24 by Kadie Turcios MD) H/O vascular surgery - Family History Family History: Family History (Last Updated 01/15/18 @ 17:25 by Kadie Turcios MD) Other Diabetes - Tobacco History Tobacco Use In Past 30 Days: Yes Smoking Status: Current every day smoker (Previous [id number] tobacco) Tobacco Type: E-Cigarettes - Alcohol History How Often Do You Have a Drink Containing Alcohol: Never - Substance Use History Substance History: No History of Abuse - Travel History Recent Travel in the [place] Within the Last 8 Weeks: No Recent Travel Out of the Country Within the Last 8 Weeks: No - Immunization History Tetanus Immunization: Unsure Hx Influenza Vaccine This Season: No Medications and Allergies Active Medications: Active Medications Acetaminophen (Tylenol) 650 mg PO Q4H PRN PRN Reason: Temp > 100.4 Hydrocodone Bitart/Acetaminophen (Franklin 7.5/325) 1 tab PO Q6H GENET Al Hydroxide/Mg Hydroxide (Milk Of Magnesia Liq) 30 ml PO Q12H PRN PRN Reason: Mild Constipation Albuterol (Duoneb Neb (Genet)) 1 ampul NEB Q6HR WHILE AWAKE NEB GENET Aspirin (Ecotrin) 325 mg PO DAILY GENET Atorvastatin Calcium (Lipitor) 80 mg PO HS GENET Bisacodyl (Dulcolax Supp) 10 mg RECTAL DAILY PRN PRN Reason: SEVERE CONSITIPATION Clopidogrel Bisulfate (Plavix) 75 mg PO DAILY [facility] Dextrose (D50w Vial) 50 ml IV.PUSH UNSCH PRN PRN Reason: PER HYPOGLYCEMIA PROTOCOL Famotidine (Pepcid) 20 mg PO BID GENET Furosemide (Lasix Inj) 40 mg IV.PUSH BID@0900,1800 GENET Gabapentin (Neurontin) 100 mg PO BID GENET Glucagon (Glucagon Inj) 1 mg OTHER PRN PRN PRN Reason: for Hypoglycemia Protocol Heparin Sodium/Dextrose (Heparin/D5w 25,000 U/250 Ml) 25,000 unit in 250 mls @ 0 mls/hr IV.CONT TITRATE PRN; Protocol PRN Reason: Per Protocol Last Admin: 01/15/18 16:49 Dose: 1,000 units/hr, 10 mls/hr Insulin Aspart (Novolog Insulin Correctional Sugar Inj) 0 unit SQ ACHS AND 3AM GENET; Protocol Insulin Human Isoph/Insulin Regular (Novolin 70/30 Inj) 40 units SQ BID GENET Isosorbide Mononitrate (Imdur) 30 mg PO DAILY [facility] Lactulose (Lactulose Liq) 30 ml PO DAILY PRN PRN Reason: SEVERE CONSITIPATION Lisinopril (Prinivil) 10 mg PO DAILY [facility] Methylprednisolone Sodium Succinate (Solumedrol Inj) 40 mg IV.PUSH Q8HR [facility] Metoprolol Tartrate (Lopressor) 25 mg PO DAILY [facility] Non-Formulary Medication (Pregabalin) 300 mg PO HS [facility] Ondansetron HCl (Zofran Inj) 4 mg IV.PUSH Q6H PRN PRN Reason: NAUSEA OR VOMITING Senna/Docusate Sodium (Abiola-Colace) 1 tab PO BID [facility] Sennosides (Senokot) 17.2 mg PO Q12H PRN PRN Reason: Moderate Constipation Sodium Chloride (Ns Flush) 2 ml IV.FLUSH PRN PRN PRN Reason: FLUSH AFTER USING IV ACCESS Tamsulosin HCl (Flomax) 0.4 mg PO HS [facility] Temazepam (Restoril) 15 mg PO HS PRN PRN Reason: INSOMNIA Allergies Allergy/AdvReac Type Severity Reaction Status Date / Time No Known Allergies Allergy Unverified 01/15/18 09:41 Home Medications Medication Instructions Recorded Confirmed Type aspirin [Aspir-81] 325 mg PO DAILY 01/15/18 01/15/18 History atorvastatin [Lipitor] 80 mg PO HS 01/15/18 01/15/18 History clopidogrel [Plavix] 75 mg PO DAILY 01/15/18 01/15/18 History fluticasone [Flonase Allergy 1 spray INTRANASAL DAILY 01/15/18 01/15/18 History Relief] furosemide [Lasix] 20 mg PO DAILY 01/15/18 01/15/18 History gabapentin [Neurontin] 100 mg PO BID 01/15/18 01/15/18 History hydrocodone-acetaminophen [Franklin] 1 tab PO Q6H 01/15/18 01/15/18 History insulin NPH and regular human 40 unit SUB-Q BID 01/15/18 01/15/18 History [Humulin 70/30 U-100 Insulin] insulin regular human [Humulin R 1 sliding scale dose SUB-Q UD 01/15/18 History Regular U-100 Insuln] isosorbide mononitrate 30 mg PO DAILY 01/15/18 01/15/18 History lidocaine [Lidocaine Pain Relief] 1 patch TOPICAL Q8H 01/15/18 01/15/18 History lisinopril 10 mg PO DAILY 01/15/18 01/15/18 History metoprolol tartrate 25 mg PO DAILY 01/15/18 01/15/18 History pregabalin [Lyrica] 300 mg PO HS 01/15/18 01/15/18 History ranitidine HCl [Zantac] 150 mg PO BID 01/15/18 01/15/18 History sitagliptin-metformin [Janumet] 1 tab PO DAILY 01/15/18 01/15/18 History tamsulosin [Flomax] 0.4 mg PO HS 01/15/18 01/15/18 History Exam Vital signs: Vital Signs 01/15/18 09:38 01/15/18 10:55 01/15/18 11:00 Temperature 97.7 F Pulse Rate 93 H 76 Respiratory Rate 20 19 Blood Pressure 152/72 H Pulse Oximetry 99 99 01/15/18 11:10 01/15/18 11:20 01/15/18 11:40 Temperature Pulse Rate 86 85 88 Respiratory Rate 20 19 22 Blood Pressure 143/69 H Pulse Oximetry 96 01/15/18 13:00 01/15/18 14:36 01/15/18 15:00 Temperature Pulse Rate 88 92 H Respiratory Rate 15 Blood Pressure Pulse Oximetry 95 98 01/15/18 15:30 01/15/18 17:00 Temperature Pulse Rate 79 82 Respiratory Rate 18 Blood Pressure 151/69 H Pulse Oximetry 96 Intake & Output 01/14/18 01/15/18 01/15/18 18:59 06:59 18:59 Weight 100.7 kg Narrative: GENERAL: Well-nourished, well-developed patient. Coughing SKIN: Warm and dry. HEAD: Normocephalic. EYES: No scleral icterus. No injection or drainage. NECK: Supple, trachea midline. No JVD or lymphadenopathy. CARDIOVASCULAR: Regular rate and rhythm without murmurs, there is a S3 RESPIRATORY: Decreased breath sounds bilaterally with crackles in the base and scattered wheezes GASTROINTESTINAL: Abdomen soft, non-tender, nondistended. MUSCULOSKELETAL: No cyanosis, there is +2-3 edema worse on the right lower extremity (chronic per patient) BACK: Nontender without obvious deformity. No CVA tenderness. NEUROLOGICAL: Awake and alert. Cranial nerves II through XII intact. Motor and sensory grossly within normal limits. Five out of 5 muscle strength in all muscle groups. Normal speech. Results - Labs CBC & Chem 7: 01/15/18 10:50 01/15/18 10:50 Labs: Short CBC 01/15/18 Range/Units 10:50 WBC 7.8 (4.0-11.0) th/mm3 Hgb 10.8 L (13.0-17.0) gm/dL Hct 33.0 L (39.0-51.0) % Plt Count 295 (150-450) th/mm3 BMP 01/15/18 10:50 Sodium 140 Potassium 4.2 Chloride 107 Carbon Dioxide 26.9 BUN 26 H Creatinine 1.70 H Calcium 8.0 L Cardiac Enzymes 01/15/18 01/15/18 Range/Units 10:50 14:28 Troponin I 0.08 H 0.08 H (0.02-0.05) ng/mL Liver Function 01/15/18 Range/Units 10:50 Total Bilirubin 0.2 (0.2-1.0) mg/dL AST 12 L (15-37) U/L ALT 18 (12-78) U/L Alkaline Phosphatase 108 (45-117) U/L Albumin 2.3 L (3.4-5.0) g/dL - Imaging Impressions Chest X-Ray 01/15/18 10:46 CONCLUSION: Mild cardiomegaly. Clear lungs. Venous Doppler Study 01/15/18 11:30 CONCLUSION: 1. Negative exam with no evidence of deep venous thrombosis. Pulmonary Perfusion Imaging 01/15/18 11:31 CONCLUSION: 1. No evidence for pulmonary embolus. Caprini VTE Risk Assessment Caprini VTE Risk Assessment: Moderate/High Risk (score >= 2) Caprini Risk Assessment Model: Point Value = 1 Point Value = 2 Point Value = 3 Point Value = 5 Age 41-60 Minor surgery BMI > 25 kg/m2 Swollen legs Varicose veins or History of unexplained or recurrent spontaneous Oral contraceptives or hormone replacement Sepsis (< 1 month) Serious lung disease, including pneumonia (< 1 month) Abnormal pulmonary function Acute myocardial infarction Congestive heart failure (< 1 month) History of inflammatory bowel disease Medical patient at bed rest Age 61-74 Arthroscopic surgery Major open surgery (> 45 min) Laparoscopic surgery (> 45 min) Malignancy Confined to bed (> 72 hours) Immobilizing plaster cast Central venous access Age >= 75 History of VTE Family history of VTE Factor V Leiden Prothrombin [id number] Lupus anticoagulant Anticardiolipin antibodies Elevated serum homocysteine Heparin-induced thrombocytopenia Other congenital or acquired thrombophilia Stroke (< 1 month) Elective arthroplasty Hip, pelvis, or leg fracture Acute spinal cord injury (< 1 month) Prophylaxis Regimen: Total Risk Factor Score Risk Level Prophylaxis Regimen 0-1 Low Early ambulation 2 Moderate Order ONE of the following: *Sequential Compression Device (SCD) *Heparin 5000 units SQ BID 3-4 Higher Order ONE of the following medications: *Heparin 5000 units SQ TID *Enoxaparin/Lovenox 40 mg SQ daily (WT < 150 kg, CrCl > 30 mL/min) *Enoxaparin/Lovenox 30 mg SQ daily (WT < 150 kg, CrCl > 10-29 mL/min) *Enoxaparin/Lovenox 30 mg SQ BID (WT < 150 kg, CrCl > 30 mL/min) AND/OR *Sequential Compression Device (SCD) 5 or more Highest Order ONE of the following medications: *Heparin 5000 units SQ TID (Preferred with Epidurals) *Enoxaparin/Lovenox 40 mg SQ daily (WT < 150 kg, CrCl > 30 mL/min) *Enoxaparin/Lovenox 30 mg SQ daily (WT < 150 kg, CrCl > 10-29 mL/min) *Enoxaparin/Lovenox 30 mg SQ BID (WT < 150 kg, CrCl > 30 mL/min) AND *Sequential Compression Device (SCD) Assessment and Plan - Assessment (1) SOB (shortness of breath) Code(s): R06.02 - Shortness of breath Status: Acute Plan: Multifactorial due to CHF and probable some underlying obstructive pulmonary disease Patient will need pulmonary function testing We will continue with duo nebs by inhalation and IV steroids We will also diurese patient follow-up echo and BNP (2) Edema Code(s): R60.9 - Edema, unspecified Status: Acute Plan: Likely due to CHF and exacerbation related to nonadherence with Lasix Patient says his weight has increased over 40 pounds in the last month We will aggressively diurese the patient and provide patient education echocardiogram pending rule out acute systolic versus diastolic heart (3) DM2 (diabetes mellitus, type 2) Code(s): E11.9 - Type 2 diabetes mellitus without complications Status: Acute Plan: Continue with sliding scale insulin Diabetic diet (4) HTN (hypertension) Code(s): I10 - Essential (primary) hypertension Status: Acute Plan: Currently controlled on home medications of isosorbide, lisinopril, metoprolol (5) Elevated troponin Code(s): R74.8 - Abnormal levels of other serum enzymes Status: Acute Plan: Continue with Phalen's, likely cardiac distention secondary to CHF No evidence of ischemia on my review of the EKG
[2018-01-15] MEDS ORDERED: Enoxaparin Inj 40 MG/0.4 ML Syringe SQ ONE (18:00)
[2018-01-15] MEDS ORDERED: Pregabalin 300 MG Capsule PO SCH (21:00)
[2018-01-15] MEDS ORDERED: Gabapentin 100 MG Capsule PO SCH (21:00)
[2018-01-15 21:10] LABS: Troponin I 0.08 ng/mL (0.02-0.05)
[2018-01-15] MEDS: Senna/Docusate Sodium 8.6/50 MG Tablet PO SCH (21:34)
[2018-01-15] MEDS: Famotidine 20 MG Tablet PO SCH (21:34)
[2018-01-15] MEDS: MethylPREDNISolone Sod Succinate Inj 40 MG/ML Vial IV.PUSH SCH (21:34)
[2018-01-15] MEDS: Insulin NovoLOG Aspart Correctional Sugar Inj SQ SCH (21:36)
[2018-01-16] MEDS: Insulin NovoLOG Aspart Correctional Sugar Inj SQ SCH ×4 (03:03→17:18)
[2018-01-16] MEDS: MethylPREDNISolone Sod Succinate Inj 40 MG/ML Vial IV.PUSH SCH ×2 (05:59→14:30)
[2018-01-16 06:05] LABS: Baso % (Auto) 0.6 % (0.0-2.0); Eos # (Auto) 0.1 th/mm3 (0.0-0.4); Eos % (Auto) 0.8 % (0.0-4.0); Hematocrit 35.4 % (39.0-51.0); Hemoglobin 11.4 gm/dL (13.0-17.0); Lymph # (Auto) 0.9 th/mm3 (1.0-4.8); Mean Corpuscular HGB Conc 32.3 % (32.0-36.0); Mean Corpuscular Hemoglobin 27.8 pg (27.0-34.0); Mean Corpuscular Volume 85.8 fL (80.0-100.0); Mean Platelet Volume 7.8 fL (7.0-11.0); Mono % (Auto) 0.5 % (0.0-8.0); Neut # (Auto) 6.2 th/mm3 (1.8-7.7); Neut % (Auto) 85.1 % (16.0-70.0); Platelet Count 306 th/mm3 (150-450); Red Blood Count 4.12 mil/mm3 (4.50-5.90); Red Cell Distribution Width 13.9 % (11.6-17.2); White Blood Count 7.3 th/mm3 (4.0-11.0)
[2018-01-16 06:07] LABS: Potassium 4.5 meq/L (3.5-5.1)
[2018-01-16 06:10] LABS: Calcium 8.7 mg/dL (8.5-10.1)
--- NOTE | 2018-01-16 07:51 | ECG ---
Date Performed: 01/15/2018 Time Performed: 20:32:46 PTAGE: 62 years EKG: Sinus rhythm ANTERIOR MYOCARDIAL INFARCTION PROBABLE INFERIOR MYOCARDIAL INFARCTION PREVIOUS TRACING : 01/15/2018 10.57 DOCTOR: Álvaro Hernandez Interpretating Date/Time 01/16/2018 07:51:31
[2018-01-16] MEDS ORDERED: Metoprolol Tartrate 25 MG Tablet PO SCH (09:00)
[2018-01-16] MEDS ORDERED: Isosorbide Mononitrate 30 MG ER 24HR Tablet (Imdur) PO SCH (09:00)
[2018-01-16] MEDS ORDERED: Lisinopril 10 MG Tablet PO SCH (09:00)
[2018-01-16] MEDS: Senna/Docusate Sodium 8.6/50 MG Tablet PO SCH (09:03)
[2018-01-16] MEDS: Famotidine 20 MG Tablet PO SCH (09:03)
--- NOTE | 2018-01-16 09:21 | ECG ---
Date Performed: 01/15/2018 Time Performed: 10:57:46 PTAGE: 62 years EKG: Sinus rhythm ANTERIOR MYOCARDIAL INFARCTION PROBABLE INFERIOR MYOCARDIAL INFARCTION ABNORMAL ECG PREVIOUS TRACING : 08/30/2013 10.39 DOCTOR: Álvaro Hernandez Interpretating Date/Time 01/16/2018 09:19:52
--- NOTE | 2018-01-16 10:26 | P.DS ---
Date of admission: 01/15/18 15:37 Primary care physician: PROVIDER NON STAFF Brief History from admission: Patient is a 62-year-old gentleman with a history of congestive heart failure and chronic tobaccoism who comes in with increased shortness of breath and increased work of breathing over the last 2 days. He was seen in the emergency room and given a nebulizer. He felt immediately improved. He has periodic coughing and shortness of breath dyspnea on exertion as well as 40 pound weight gain and had stopped taking his Lasix at home. Patient says he is not on any nebulizers because "I do not have lung problems ". Stopped taking the Lasix because "it was making him pee". Patient does follow-up with his primary care physician intermittently. He has been taking his diabetes medication and his Flonase and has reported blood pressure medications as well. This point the patient is recommended for further evaluation treatment due to his symptoms. On my review his EKG does not show any EKG changes consistent with ischemia however patient appears to have a congestive heart failure by exam and by x- ray. His x-ray on my review does show some pulmonary vascular congestion. Patient will need to be admitted in the hospital also because his cardiac enzymes are elevated at 0.08. DS: Diagnosis - Discharge Diagnosis (1) SOB (shortness of breath) Status: Acute (2) Edema Status: Acute (3) DM2 (diabetes mellitus, type 2) Status: Acute (4) HTN (hypertension) Status: Acute (5) Elevated troponin Status: Acute (6) CHF (congestive heart failure), NYHA class IV Status: Acute DS: Medications - Discharge Medications Prescriptions: ipratropium bromide 0.125 ml/kg INHALATION Q8H #90 ml sodium chloride [[place] Nasal] 1 spray INTRANASAL Q4H #1 ml DS: Summary Hospital Course: x - Time Spent with Patient Total time spent providing and/or coordinating discharge services: Greater than 30 minutes - Quality: VTE Deep Vein Thrombosis/Pulmonary Embolism Present on Admission: No Exam Vital signs: Vital Signs 01/15/18 10:55 01/15/18 11:00 01/15/18 11:10 Temperature Pulse Rate 76 86 Respiratory Rate 19 20 Blood Pressure Pulse Oximetry 99 01/15/18 11:20 01/15/18 11:40 01/15/18 12:40 Temperature Pulse Rate 85 82 84 Respiratory Rate 19 18 20 Blood Pressure 143/69 H 122/64 Pulse Oximetry 99 97 01/15/18 13:00 01/15/18 14:36 01/15/18 15:00 Temperature Pulse Rate 88 92 H Respiratory Rate 15 Blood Pressure Pulse Oximetry 95 98 01/15/18 15:30 01/15/18 17:00 01/15/18 17:50 Temperature Pulse Rate 82 82 88 Respiratory Rate 22 18 Blood Pressure 151/69 H 151/74 H Pulse Oximetry 97 96 97 01/15/18 18:32 01/15/18 19:08 01/15/18 19:09 Temperature Pulse Rate 82 Respiratory Rate 20 Blood Pressure 167/74 H Pulse Oximetry 94 L 95 94 L 01/15/18 19:11 01/15/18 19:13 01/15/18 20:00 Temperature 98.7 F Pulse Rate 87 82 82 Respiratory Rate 25 H Blood Pressure Pulse Oximetry 94 L 01/16/18 00:00 01/16/18 01:00 01/16/18 02:58 Temperature 97.7 F Pulse Rate 85 Respiratory Rate 23 19 Blood Pressure 147/71 H Pulse Oximetry 95 99 01/16/18 02:59 01/16/18 04:00 01/16/18 06:34 Temperature 97.7 F Pulse Rate 84 74 Respiratory Rate 18 0 L Blood Pressure 141/75 H Pulse Oximetry 91 L 01/16/18 07:00 01/16/18 07:59 01/16/18 08:00 Temperature 97.6 F Pulse Rate 77 82 Respiratory Rate 20 16 Blood Pressure 159/75 H Pulse Oximetry 95 96 96 01/16/18 08:15 Temperature Pulse Rate Respiratory Rate Blood Pressure Pulse Oximetry 88 L Intake & Output 01/15/18 01/16/18 01/16/18 18:59 06:59 18:59 Intake Total 620 / 620 Output Total 1700 / 1700 Balance -1080 / -1080 Weight 100.7 kg 94.9 kg Intake: Oral 620 / 620 Output: Urine 1700 / 1700 Other: Date of Last Bowel Movement 01/14/18 Weight On Admission 97.6 kg Results Procedures completed during hospitalization: none Labs on day of discharge: Labs from last 24 hours 01/16/18 01/16/18 01/16/18 08:25 05:50 05:50 CBC w Diff Slide review pending WBC 7.3 RBC 4.12 L Hgb 11.4 L Hct 35.4 L MCV 85.8 MCH 27.8 MCHC 32.3 RDW 13.9 Plt Count 306 MPV 7.8 Neut % (Auto) 85.1 H Lymph % (Auto) 13.0 Rains % (Auto) 0.5 Eos % (Auto) 0.8 Baso % (Auto) 0.6 Neut # (Auto) 6.2 Lymph # (Auto) 0.9 L Rains # (Auto) 0.0 Eos # (Auto) 0.1 Baso # (Auto) 0.0 WBC Differential . Diff Scan Auto diff confirmed Differential Comment . PT INR APTT D-Dimer Quant (PE/DVT) Sodium 136 Potassium 4.5 Chloride 104 Carbon Dioxide 26.0 Anion Gap 6 BUN 31 H Creatinine 1.80 H Estimated GFR 39 L POC Glucose 232 H Random Glucose 233 H Calcium 8.7 Total Bilirubin AST ALT Alkaline Phosphatase Total Creatine Kinase Troponin I B-Natriuretic Peptide Total Protein Albumin 01/16/18 01/15/18 01/15/18 02:58 20:52 20:15 CBC w Diff WBC RBC Hgb Hct MCV MCH MCHC RDW Plt Count MPV Neut % (Auto) Lymph % (Auto) Rains % (Auto) Eos % (Auto) Baso % (Auto) Neut # (Auto) Lymph # (Auto) Rains # (Auto) Eos # (Auto) Baso # (Auto) WBC Differential Diff Scan Differential Comment PT INR APTT D-Dimer Quant (PE/DVT) Sodium Potassium Chloride Carbon Dioxide Anion Gap BUN Creatinine Estimated GFR POC Glucose 170 H 373 H Random Glucose Calcium Total Bilirubin AST ALT Alkaline Phosphatase Total Creatine Kinase 82 Troponin I 0.08 H B-Natriuretic Peptide Total Protein Albumin 01/15/18 01/15/18 01/15/18 18:28 16:00 14:28 CBC w Diff WBC RBC Hgb Hct MCV MCH MCHC RDW Plt Count MPV Neut % (Auto) Lymph % (Auto) Rains % (Auto) Eos % (Auto) Baso % (Auto) Neut # (Auto) Lymph # (Auto) Rains # (Auto) Eos # (Auto) Baso # (Auto) WBC Differential Diff Scan Differential Comment PT 9.8 INR 1.0 APTT 28.8 D-Dimer Quant (PE/DVT) Sodium Potassium Chloride Carbon Dioxide Anion Gap BUN Creatinine Estimated GFR POC Glucose 359 H Random Glucose Calcium Total Bilirubin AST ALT Alkaline Phosphatase Total Creatine Kinase Troponin I 0.08 H B-Natriuretic Peptide Total Protein Albumin 01/15/18 01/15/18 01/15/18 10:50 10:50 10:50 CBC w Diff WBC RBC Hgb Hct MCV MCH MCHC RDW Plt Count MPV Neut % (Auto) Lymph % (Auto) Rains % (Auto) Eos % (Auto) Baso % (Auto) Neut # (Auto) Lymph # (Auto) Rains # (Auto) Eos # (Auto) Baso # (Auto) WBC Differential Diff Scan Differential Comment PT INR APTT D-Dimer Quant (PE/DVT) 0.51 H Sodium 140 Potassium 4.2 Chloride 107 Carbon Dioxide 26.9 Anion Gap 6 BUN 26 H Creatinine 1.70 H Estimated GFR 41 L POC Glucose Random Glucose 162 H Calcium 8.0 L Total Bilirubin 0.2 AST 12 L ALT 18 Alkaline Phosphatase 108 Total Creatine Kinase Troponin I 0.08 H B-Natriuretic Peptide 588 H Total Protein 6.4 Albumin 2.3 L 01/15/18 10:50 CBC w Diff Auto diff final WBC 7.8 RBC 3.84 L Hgb 10.8 L Hct 33.0 L MCV 85.8 MCH 28.2 MCHC 32.9 RDW 13.6 Plt Count 295 MPV 7.2 Neut % (Auto) 53.5 Lymph % (Auto) 36.2 Rains % (Auto) 6.8 Eos % (Auto) 3.0 Baso % (Auto) 0.5 Neut # (Auto) 4.3 Lymph # (Auto) 2.8 Rains # (Auto) 0.5 Eos # (Auto) 0.2 Baso # (Auto) 0.0 WBC Differential . Diff Scan Differential Comment . PT INR APTT D-Dimer Quant (PE/DVT) Sodium Potassium Chloride Carbon Dioxide Anion Gap BUN Creatinine Estimated GFR POC Glucose Random Glucose Calcium Total Bilirubin AST ALT Alkaline Phosphatase Total Creatine Kinase Troponin I B-Natriuretic Peptide Total Protein Albumin - Impressions ITS Impressions Chest X-Ray 01/15/18 10:46 CONCLUSION: Mild cardiomegaly. Clear lungs. Venous Doppler Study 01/15/18 11:30 CONCLUSION: 1. Negative exam with no evidence of deep venous thrombosis. Pulmonary Perfusion Imaging 01/15/18 11:31 CONCLUSION: 1. No evidence for pulmonary embolus. Discharge Plan - Discharge Disposition Patient Disposition: 01 Discharge Home - Discharge Condition Condition: Stable - Discharge Order Discharge Orders: Discharge Order (Routine); Ordered 01/16/18 Ordered By: Kadie Turcios - Discharge Details Anticipated Discharge Date: 01/16/18 Discharge Comment: when arrangements made - Physicians Team Primary Care Provider: NON STAFF,PROVIDER Attending Provider: Kadie Turcios
--- NOTE | 2018-01-16 14:51 | ECHRPT ---
Indication: Heart Failure CONCLUSIONS The left ventricular systolic function is mildly reduced with an estimated ejection fraction in the range of 45- 50%. Hypokinetic mid-anterior septal wall motion. Mild concentric left ventricular hypertrophy. Normal left ventricular size. Calcification of the anterior mitral valve leaflet. Mild to moderate mitral valve regurgitation. Aortic valve sclerosis is present. The pulmonary valve is not well visualized. No valvular vegetation seen with fair visualization by TTE BP: / HR: Rhythm: Sinus MEASUREMENTS (Male / Female) Normal Values Technical Quality:Technically difficult study 2D ECHO LV Diastolic Diameter PLAX 4.6 cm 4.2 - 5.9 / 3.9 - 5.3 cm LV Systolic Diameter PLAX 3.8 cm IVS Diastolic Thickness 1.3 cm 0.6 - 1.0 / 0.6 - 0.9 cm LVPW Diastolic Thickness 1.3 cm 0.6 - 1.0 / 0.6 - 0.9 cm LV Relative Wall Thickness 0.6 RV Internal Dim ED PLAX 3.4 cm LVOT Diameter 1.8 cm LA Systolic Diameter LX 4.0 cm 3.0 - 4.0 / 2.7 - 3.8 cm M-MODE Aortic Root Diameter MM 2.7 cm LA Systolic Diameter MM 4.3 cm LA Ao Ratio MM 1.6 AV Cusp Separation MM 1.7 cm DOPPLER AV Peak Velocity 205.5 cm/s AV Peak Gradient 16.9 mmHg AV Mean Gradient 6.0 mmHg AV Velocity Time Integral 31.1 cm LVOT Peak Velocity 148.0 cm/s LVOT Peak Gradient 8.8 mmHg LVOT Velocity Time Integral 29.0 cm AV Area Cont Eq vti 2.4 cm AV Area Cont Eq pk 1.8 cm MV Area PHT 2.9 cm Mitral E Point Velocity 89.3 cm/s Mitral A Point Velocity 99.2 cm/s Mitral E to A Ratio 0.9 LV E' Lateral Velocity 6.1 cm/s Mitral E to LV E' Lateral Ratio 14.5 LV E' Septal Velocity 5.5 cm/s Mitral E to LV E' Septal Ratio 16.2 FINDINGS LEFT VENTRICLE The left ventricular systolic function is mildly reduced with an estimated ejection fraction in the range of 45- 50%. Hypokinetic mid-anterior septal wall motion. Mild concentric left ventricular hypertrophy. Normal left ventricular size. RIGHT VENTRICLE Normal right ventricular size and systolic function. There is a prominent moderator band observed in the right ventricle (benign finding). LEFT ATRIUM The left atrial size is normal. RIGHT ATRIUM The right atrial size is normal. ATRIAL SEPTUM Normal atrial septal thickness without atrial level shunting by limited color doppler interrogation. AORTA The aortic root and proximal ascending aorta are normal in size on limited imaging. MITRAL VALVE Calcification of the anterior mitral valve leaflet. Mild to moderate mitral valve regurgitation. AORTIC VALVE Trileaflet aortic valve. Aortic valve sclerosis is present. TRICUSPID VALVE Structurally normal tricuspid valve. No tricuspid valve stenosis or regurgitation. PULMONARY VALVE The pulmonary valve is not well visualized. VESSELS The inferior vena cava is normal in size. PERICARDIUM No pericardial effusion. Peterson Montiel MD (Electronically Signed) Final Date:16 January 2018 14:50
== END 2018-01-16 18:03 | disposition home or self-care (01) ==
LOC: PHED 09:36 → PHEDA 15:37 → PHICU 18:49
PROVIDERS: ADMIT Hospitalist; ATTEND Hospitalist

== ENCOUNTER 2018-03-13 05:59 | Observation (INO) ==
[2018-03-13] MEDS ORDERED: MethylPREDNISolone Sod Succinate Inj 125 MG/2 ML Vial IV.PUSH ONE (06:09)
--- NOTE | 2018-03-13 06:18 | ED ---
HPI General Chief complaint: Shortness of Breath/Dyspnea Stated complaint: EVAC/breathing difficulty Time Seen by Provider: 03/13/18 06:12 History of Present Illness HPI narrative: 63-year-old male with history of CAD, COPD, CHF, on 3 L nasal cannula at home, insulin dependent diabetes, CKD, poor medication compliance, brought in by ambulance from home for evaluation of shortness of breath, cough, generalized malaise. The patient reports cough productive of yellowish sputum for the last several days. No hemoptysis. He experiences diffuse/sharp chest pain when he coughs. He was admitted on 01/15/18 for similar symptoms and chart review shows that he had bilateral lower extremity venous duplex that was negative for DVT as well as a VQ scan that was negative for PE. He has had generalized malaise and feels warm, but is unsure if he has had a fever. Dyspnea is at rest. He also complains of orthopnea and worsening bilateral lower extremity edema. Related Data Home Medications Medication Instructions Recorded Confirmed aspirin [Aspir-81] 325 mg PO DAILY 01/15/18 01/15/18 atorvastatin [Lipitor] 80 mg PO HS 01/15/18 01/15/18 clopidogrel [Plavix] 75 mg PO DAILY 01/15/18 01/15/18 furosemide [Lasix] 20 mg PO DAILY 01/15/18 01/15/18 hydrocodone-acetaminophen [Philip] 1 tab PO Q6H 01/15/18 01/15/18 insulin NPH and regular human 40 unit SUB-Q BID 01/15/18 01/15/18 [Humulin 70/30 U-100 Insulin] insulin regular human [Humulin R 1 sliding scale dose SUB-Q UD 01/15/18 01/15/18 Regular U-100 Insuln] isosorbide mononitrate 30 mg PO DAILY 01/15/18 01/15/18 lidocaine [Lidocaine Pain Relief] 1 patch TOPICAL Q8H 01/15/18 01/15/18 lisinopril 10 mg PO DAILY 01/15/18 01/15/18 metoprolol tartrate 25 mg PO DAILY 01/15/18 01/15/18 pregabalin [Lyrica] 300 mg PO HS 01/15/18 01/15/18 ranitidine HCl [Zantac] 150 mg PO BID 01/15/18 01/15/18 sitagliptin-metformin [Janumet] 1 tab PO DAILY 01/15/18 01/15/18 tamsulosin [Flomax] 0.4 mg PO HS 01/15/18 01/15/18 Previous Rx's Medication Instructions Recorded clopidogrel [Plavix] 75 mg PO DAILY tab 01/16/18 ipratropium bromide 0.125 ml/kg INHALATION Q8H #90 ml 01/16/18 sodium chloride [[place] Nasal] 1 spray INTRANASAL Q4H #1 ml 01/16/18 Allergies Allergy/AdvReac Type Severity Reaction Status Date / Time No Known Allergies Allergy Verified 03/13/18 06:10 Review of Systems ROS: all other systems reviewed are negative [facility] Social History Social History Substance History: No History of Abuse Second Hand Smoke Exposure: Yes Smoking Status: Light tobacco smoker Tobacco Type: Smokeless Tobacco How Often Do You Have a Drink Containing Alcohol: Never Recent Travel in [facility] within the Last 8 Weeks: No Recent Out of Country Travel within the Last 8 Weeks: No Exam Narrative Exam Narrative: GENERAL: Well-developed, well-nourished, overweight, moderate respiratory distress with intercostal retractions, speaking full sentences. SKIN: Focused skin assessment warm/dry. HEAD: Atraumatic. Normocephalic. EYES: Pupils equal and round. No scleral icterus. No injection or drainage. ENT: Mucous membranes pink and moist. NECK: Trachea midline. No JVD. CARDIOVASCULAR: Regular rate and rhythm. RESPIRATORY: Moderate respiratory distress. Intercostal retractions, poor air movement bilaterally, bibasilar rales, speaking full sentences. GASTROINTESTINAL: Abdomen soft, non-tender, distended. MUSCULOSKELETAL: No obvious deformities. No clubbing. No cyanosis. 2+ bilateral lower extremity edema from foot to thigh. No calf tenderness. NEUROLOGICAL: Awake and alert. No obvious cranial nerve deficits. Motor grossly within normal limits. Normal speech. PSYCHIATRIC: Appropriate mood and affect; insight and judgment normal. Course Initial Documented Vital Signs Temperature 98.0 F 03/13/18 06:00 Pulse Rate 89 03/13/18 06:00 Respiratory Rate 22 03/13/18 06:00 Blood Pressure 182/90 H 03/13/18 06:00 Pulse Oximetry 96 03/13/18 06:00 Last Documented Vital Signs Temperature 98.0 F 03/13/18 06:06 Pulse Rate 83 03/13/18 06:42 Respiratory Rate 22 03/13/18 06:42 Blood Pressure 167/96 H 03/13/18 06:31 Pulse Oximetry 96 03/13/18 06:31 Critical Care Time Critical Care Time: Yes Total Critical Care Time: 35 Attestation: Aggregate critical care time was 35 minutes. Time to perform other separately billable procedures was not included in the critical care time. My time did not include minutes spent treating any other patients simultaneously or on activities that did not directly contribute to the patient's treatment. The services I provided to this patient were to treat and/or prevent clinically significant deterioration that could result in: Acute respiratory failure, , permanent disability, worsening clinical condition I provided critical care services requiring my management, as noted below: Chart data review, documentation time, medication orders and management, vital sign assessments/reviewing monitor data, ordering and reviewing lab tests, ordering and interpreting/reviewing x-rays and diagnostic studies, care of the patient and discussion of the patient with the admitting physicians. Medical Decision Making MDM Narrative Medical decision making narrative: Vital signs reviewed. CBC is remarkable for hemoglobin 11.6, hematocrit 34.7 CMP is remarkable for BUN 25, creatinine 1.9 which is around his baseline, random glucose 529. Bicarb is 26.2 and anion gap is 8. Patient is not in DKA. BNP is 603. Troponin is 0.35. Chest x-ray: CONCLUSION: Moderate basilar pleural-parenchymal opacities bilaterally. EKG: Sinus, rate 90, normal axis, normal intervals, Q waves in septal and anterior leads as well as T wave inversions and lateral limb leads which were seen on prior EKG. No acute ischemic abnormality. The patient was provided 3 DuoNeb treatments, 125 mg of IV Solu-Medrol, 40 mg of IV Lasix, and 10 mg of IV insulin. He feels moderately improved. He is speaking full sentences and clinically his respiratory status is improved from when he first arrived in the emergency department. Slight elevation in troponin is likely secondary to hypoxia/increased work of breathing/CHF exacerbation. He is notably hypertensive. Nitropaste will be applied. He was given a full aspirin as well. He has had cough occasionally productive of greenish sputum, however he is afebrile with a normal WBC count. I believe that the parenchymal opacities seen on chest x-ray are likely secondary to pulmonary edema/fluid overload, and less likely secondary to pneumonia. Case discussed with hospitalist MATTY. The patient will be admitted to their service under Dr. Urias. Medical Screen Exam Complete: Yes Emergency Medical Condition: Yes Differential Diagnosis Differential Diagnosis: Acute pulmonary edema/CHF, COPD exacerbation, pneumonia , pneumothorax, PE, ACS Medical Records Medical records reviewed: Yes I reviewed the patient's medical records. Lab Data Result diagrams: 03/13/18 06:10 03/13/18 06:10 Lab Results 03/13/18 03/13/18 03/13/18 Range/Units 06:10 06:10 06:10 CBC w Diff Auto diff final WBC 7.2 (4.0-11.0) th/mm3 RBC 4.10 L (4.50-5.90) mil/mm3 Hgb 11.6 L (13.0-17.0) gm/dL Hct 34.7 L (39.0-51.0) % MCV 84.4 (80.0-100.0) fL MCH 28.3 (27.0-34.0) pg MCHC 33.5 (32.0-36.0) % RDW 14.4 (11.6-17.2) % Plt Count 264 (150-450) th/mm3 MPV 8.1 (7.0-11.0) fL Neut % (Auto) 69.6 (16.0-70.0) % Lymph % (Auto) 22.5 (9.0-44.0) % [place] % (Auto) 4.4 (0.0-8.0) % Eos % (Auto) 2.7 (0.0-4.0) % Baso % (Auto) 0.8 (0.0-2.0) % Neut # (Auto) 5.0 (1.8-7.7) th/mm3 Lymph # (Auto) 1.6 (1.0-4.8) th/mm3 [place] # (Auto) 0.3 (0.0-0.9) th/mm3 Eos # (Auto) 0.2 (0.0-0.4) th/mm3 Baso # (Auto) 0.1 (0.0-0.2) th/mm3 WBC Differential . Differential Comment . PT 9.6 L (9.8-11.6) sec INR 0.9 Ratio APTT 31.6 H (24.3-30.1) sec Sodium 133 L (136-145) meq/L Potassium 4.7 (3.5-5.1) meq/L Chloride 99 (98-107) meq/L Carbon Dioxide 26.2 (21.0-32.0) meq/L Anion Gap 8 (5-15) meq/L BUN 25 H (7-18) mg/dL Creatinine 1.90 H (0.60-1.30) mg/dL Estimated GFR 36 L (>89) mL/min Random Glucose 529 H* (74-106) mg/dL Calcium 8.0 L (8.5-10.1) mg/dL Total Bilirubin 0.4 (0.2-1.0) mg/dL AST 12 L (15-37) U/L ALT 20 (12-78) U/L Alkaline Phosphatase 125 H (45-117) U/L Total Creatine Kinase 224 (39-308) U/L CK-MB (CK-2) 5.8 H (0.5-3.6) ng/mL Troponin I 0.35 H (0.02-0.05) ng/mL B-Natriuretic Peptide (0-100) pg/mL Total Protein 7.0 (6.4-8.2) g/dL Albumin 2.7 L (3.4-5.0) g/dL 03/13/18 Range/Units 06:10 CBC w Diff WBC (4.0-11.0) th/mm3 RBC (4.50-5.90) mil/mm3 Hgb (13.0-17.0) gm/dL Hct (39.0-51.0) % MCV (80.0-100.0) fL MCH (27.0-34.0) pg MCHC (32.0-36.0) % RDW (11.6-17.2) % Plt Count (150-450) th/mm3 MPV (7.0-11.0) fL Neut % (Auto) (16.0-70.0) % Lymph % (Auto) (9.0-44.0) % [place] % (Auto) (0.0-8.0) % Eos % (Auto) (0.0-4.0) % Baso % (Auto) (0.0-2.0) % Neut # (Auto) (1.8-7.7) th/mm3 Lymph # (Auto) (1.0-4.8) th/mm3 [place] # (Auto) (0.0-0.9) th/mm3 Eos # (Auto) (0.0-0.4) th/mm3 Baso # (Auto) (0.0-0.2) th/mm3 WBC Differential Differential Comment PT (9.8-11.6) sec INR Ratio APTT (24.3-30.1) sec Sodium (136-145) meq/L Potassium (3.5-5.1) meq/L Chloride (98-107) meq/L Carbon Dioxide (21.0-32.0) meq/L Anion Gap (5-15) meq/L BUN (7-18) mg/dL Creatinine (0.60-1.30) mg/dL Estimated GFR (>89) mL/min Random Glucose (74-106) mg/dL Calcium (8.5-10.1) mg/dL Total Bilirubin (0.2-1.0) mg/dL AST (15-37) U/L ALT (12-78) U/L Alkaline Phosphatase (45-117) U/L Total Creatine Kinase (39-308) U/L CK-MB (CK-2) (0.5-3.6) ng/mL Troponin I (0.02-0.05) ng/mL B-Natriuretic Peptide 603 H (0-100) pg/mL Total Protein (6.4-8.2) g/dL Albumin (3.4-5.0) g/dL Imaging Data Radiologist's impression: Chest X-Ray 03/13/18 06:09 CONCLUSION: Moderate basilar pleural-parenchymal opacities bilaterally ECG Data Attestation: I personally reviewed and interpreted this ECG as follows: (Sinus, rate 90, normal axis, normal intervals, Q waves in septal and anterior leads which were seen on prior EKG as well as T wave inversions in lateral limb leads , no acute ischemic abnormality.) Discharge Plan Discharge Disposition Patient Disposition: 30 Still Patient Discharge Condition Condition: Fair Discharge Details Diagnosis: Acute exacerbation of CHF (congestive heart failure), Elevated troponin, Hyperglycemia, Chronic kidney disease Physicians Team ED Provider: Ishmael Wilson Primary Care Provider: UNKNOWN, Rxs /Orders / Referrals /Forms Prescriptions: No Action atorvastatin [Lipitor] 80 mg Tablet 80 mg PO HS RF: 0 lidocaine [Lidocaine Pain Relief] 4 % Adhesive Patch,Medicated 1 patch TOPICAL Q8H RF: 0 insulin NPH and regular human [Humulin 70/30 U-100 Insulin] 100 unit/mL (70-30 ) Suspension 40 unit SUB-Q BID RF: 0 clopidogrel [Plavix] 75 mg Tablet 75 mg PO DAILY RF: 0 aspirin [Aspir-81] 81 mg Tablet,Delayed Release (Dr/Ec) 325 mg PO DAILY RF: 0 tamsulosin [Flomax] 0.4 mg Capsule,Extended Release 24hr 0.4 mg PO HS RF: 0 hydrocodone-acetaminophen [Philip] 7.5-325 mg Tablet 1 tab PO Q6H RF: 0 ranitidine HCl [Zantac] 150 mg Tablet 150 mg PO BID RF: 0 lisinopril 10 mg Tablet 10 mg PO DAILY RF: 0 furosemide [Lasix] 20 mg Tablet 20 mg PO DAILY RF: 0 pregabalin [Lyrica] 300 mg Capsule 300 mg PO HS RF: 0 sitagliptin-metformin [Janumet] 50-1,000 mg Tablet 1 tab PO DAILY RF: 0 isosorbide mononitrate 30 mg Tablet Extended Release 24 Hr 30 mg PO DAILY RF: 0 insulin regular human [Humulin R Regular U-100 Insuln] 100 unit/mL Solution 1 sliding scale dose SUB-Q UD RF: 0 metoprolol tartrate 25 mg Tablet 25 mg PO DAILY RF: 0 clopidogrel [Plavix] 75 mg Tablet 75 mg PO DAILY RF: 0 sodium chloride [[place] Nasal] 0.65 % Aerosol,[place] 1 spray INTRANASAL Q4H Qty: 1 RF: 0 ipratropium bromide 0.02 % Solution 0.125 ml/kg INHALATION Q8H Qty: 90 RF: 0 Status ED Status: With Doctor
--- NOTE | 2018-03-13 06:23 | XR ---
EXAM DATE: 03/13/2018 6:09 AM EDT AGE/SEX: 63 years / Male INDICATIONS: Shortness of breath for 1 week CLINICAL DATA: This is the patient's initial encounter. Patient reports that signs and symptoms have been present for 1 week and indicates a pain score of 0/10. MEDICAL/SURGICAL HISTORY: None. None. COMPARISON: [facility], CHEST 1V SINGLE AP, 01/15/2018. . FINDINGS: Moderate hazy bilateral basilar pleural-parenchymal opacity is present, likely infiltrates and layeri ng effusion. Cardiac contours are largely obscured. CONCLUSION: Moderate basilar pleural-parenchymal opacities bilaterally Electronically signed by: Rainer Francisco MD 03/13/2018 6:21 AM EDT
[2018-03-13 06:24] LABS: Baso # (Auto) 0.1 th/mm3 (0.0-0.2); Baso % (Auto) 0.8 % (0.0-2.0); Eos # (Auto) 0.2 th/mm3 (0.0-0.4); Eos % (Auto) 2.7 % (0.0-4.0); Hematocrit 34.7 % (39.0-51.0); Hemoglobin 11.6 gm/dL (13.0-17.0); Lymph # (Auto) 1.6 th/mm3 (1.0-4.8); Lymph % (Auto) 22.5 % (9.0-44.0); Mean Corpuscular HGB Conc 33.5 % (32.0-36.0); Mean Corpuscular Hemoglobin 28.3 pg (27.0-34.0); Mean Corpuscular Volume 84.4 fL (80.0-100.0); Mean Platelet Volume 8.1 fL (7.0-11.0); Mono # (Auto) 0.3 th/mm3 (0.0-0.9); Mono % (Auto) 4.4 % (0.0-8.0); Neut % (Auto) 69.6 % (16.0-70.0); Platelet Count 264 th/mm3 (150-450); Red Cell Distribution Width 14.4 % (11.6-17.2); White Blood Count 7.2 th/mm3 (4.0-11.0)
[2018-03-13 06:34] LABS: Chloride 99 meq/L (98-107); Potassium 4.7 meq/L (3.5-5.1); Sodium 133 meq/L (136-145)
[2018-03-13 06:38] LABS: Activated Partial Thrombo Time 31.6 sec (24.3-30.1); Albumin 2.7 g/dL (3.4-5.0); Anion Gap 8 meq/L (5-15); Blood Urea Nitrogen 25 mg/dL (7-18); Carbon Dioxide 26.2 meq/L (21.0-32.0); INR 0.9 Ratio; Prothrombin Time 9.6 sec (9.8-11.6)
[2018-03-13 06:41] LABS: Alanine Aminotransferase 20 U/L (12-78); Aspartate Aminotransferase 12 U/L (15-37); Glomerular Filtration Rate 36 mL/min (>89)
[2018-03-13 06:47] LABS: Alkaline Phosphatase 125 U/L (45-117); Creatine Kinase 224 U/L (39-308); Troponin I 0.35 ng/mL (0.02-0.05)
[2018-03-13 06:48] LABS: Glucose,Random 529 mg/dL (74-106)
[2018-03-13 07:13] LABS: Creatine Kinase MB 5.8 ng/mL (0.5-3.6)
[2018-03-13] MEDS ORDERED: Acetaminophen 325 MG Tablet PO PRN (07:21)
[2018-03-13] MEDS ORDERED: Bisacodyl 10 MG Supp RECTAL PRN (07:21)
[2018-03-13] MEDS ORDERED: Dextrose 50% in Water 50 ML Vial IV.PUSH PRN (07:33)
[2018-03-13] MEDS: Insulin NovoLOG Aspart Correctional Sugar Inj SQ SCH ×4 (08:10→20:15)
[2018-03-13] MEDS: Heparin - SQ 10,000 UNITS/ML Vial SQ SCH ×2 (08:11→20:56)
--- NOTE | 2018-03-13 09:39 | P.HP ---
History of Present Illness Primary Care Physician: Dr. Farooq Chief Complaint: Orthopnea and shortness of breath History of Present Illness: This is a pleasant 63-year-old male patient with a known medical history of CAD , COPD, chronic respiratory failure with home O2, CHF, insulin-dependent diabetes, and CKD who presented to the ED with complaints of shortness of breath. Patient states over the course of the past couple weeks he has been increasingly short of breath especially with activity and has noticed worsening shortness of breath especially when lying down. He does admit to a cough for the past couple weeks as well, noticing green colored phlegm the past few days. Patient was admitted on 01/15/18 for ACS rule out and at that time an echocardiogram was done showing an adequate EF 40-45%. At that time he was placed on Lasix and actually discharged with home O2. Since that time patient states he has been short of breath and using his home O2 currently. He does not follow with a medical radiation tech, his PCP follows and manages his home oxygen. Last seen 6 months ago. His geospatial program management officer is Dr. Mckeon, seen less than 1 month ago and has been managing his CHF. Patient also states that last evening he was so short of breath and weak that he did not take his home insulin. Upon presentation his glucose was over 500. - Diagnosis (1) Elevated troponin (2) Acute exacerbation of CHF (congestive heart failure) Inpatient Certification: I certify that the inpatient services were ordered in accordance with Medicare regulations governing the order. This includes certification that hospital inpatient services are reasonable and necessary and in the case of services not specified as inpatient-only under 42 CFR 419.22(n), that they are appropriately provided as inpatient services in accordance to with the 2-midnight benchmark under 43 CFR 412.3(e) Estimated Total Length of Stay (Days): 3 Review of Systems All other systems reviewed negative except as stated in HPI PMFSH - History History Provided By: Patient - Medical History Medical History: Medical History (Last Reviewed 03/13/18 @ 13:04 by Nan De La Paz) Congestive heart failure Diabetes High cholesterol Hypertension PAD (peripheral artery disease) - Surgical History Surgical History: Surgical History (Last Reviewed 03/13/18 @ 13:04 by Nan De La Paz) H/O vascular surgery - Family History Family History: Family History (Last Reviewed 03/13/18 @ 13:04 by Nan De La Paz) Other Diabetes - Tobacco History Second Hand Smoke Exposure: No Tobacco Use In Past 30 Days: Yes Smoking Status: Former smoker Tobacco Type: E-Cigarettes - Alcohol History How Often Do You Have a Drink Containing Alcohol: Never - Substance Use History Substance History: No History of Abuse - Travel History Recent Travel in the [place] Within the Last 8 Weeks: No Recent Travel Out of the Country Within the Last 8 Weeks: No - Immunization History Tetanus Immunization: Unsure Medications and Allergies Active Medications: Active Medications Acetaminophen (Tylenol) 650 mg PO Q4H PRN PRN Reason: Temp > 100.4 Al Hydroxide/Mg Hydroxide (Milk Of Magnesia Liq) 30 ml PO Q12H PRN PRN Reason: Mild Constipation Bisacodyl (Dulcolax Supp) 10 mg RECTAL DAILY PRN PRN Reason: SEVERE CONSITIPATION Dextrose (D50w Vial) 50 ml IV.PUSH UNSCH PRN PRN Reason: PER HYPOGLYCEMIA PROTOCOL Furosemide (Lasix Inj) 40 mg IV.PUSH DAILY [place] Glucagon (Glucagon Inj) 1 mg OTHER PRN PRN PRN Reason: for Hypoglycemia Protocol Heparin Sodium (Porcine) (Heparin Inj) 5,000 units SQ Q12HR [facility] Last Admin: 03/13/18 08:11 Dose: 5,000 units Insulin Aspart (Novolog Insulin Correctional Sugar Inj) 0 unit SQ [facility]; Protocol Last Admin: 03/13/18 08:10 Dose: 9 unit Lactulose (Lactulose Liq) 30 ml PO DAILY PRN PRN Reason: SEVERE CONSITIPATION Ondansetron HCl (Zofran Inj) 4 mg IV.PUSH Q6H PRN PRN Reason: NAUSEA OR VOMITING Oxymetazoline HCl (Afrin 0.05% Nasal [place]) 2 spray NASAL Q12HR [facility] Sennosides (Senokot) 17.2 mg PO Q12H PRN PRN Reason: Moderate Constipation Allergies Allergy/AdvReac Type Severity Reaction Status Date / Time No Known Allergies Allergy Verified 03/13/18 06:10 Home Medications Medication Instructions Recorded Confirmed Type aspirin [Aspir-81] 325 mg PO DAILY 01/15/18 03/13/18 History atorvastatin [Lipitor] 80 mg PO HS 01/15/18 03/13/18 History hydrocodone-acetaminophen [[place]] 1 tab PO Q6H 01/15/18 03/13/18 History insulin regular human [Humulin R 1 sliding scale dose SUB-Q UD 01/15/18 History Regular U-100 Insuln] isosorbide mononitrate 30 mg PO DAILY 01/15/18 03/13/18 History lidocaine [Lidocaine Pain Relief] 1 patch TOPICAL Q8H 01/15/18 03/13/18 History lisinopril 10 mg PO DAILY 01/15/18 03/13/18 History metoprolol tartrate 25 mg PO DAILY 01/15/18 03/13/18 History ranitidine HCl [Zantac] 150 mg PO BID 01/15/18 03/13/18 History sitagliptin-metformin [Janumet] 1 tab PO DAILY 01/15/18 03/13/18 History tamsulosin [Flomax] 0.4 mg PO HS 01/15/18 03/13/18 History Exam Vital signs: Vital Signs 03/13/18 06:00 03/13/18 06:06 03/13/18 06:31 Temperature 98.0 F 98.0 F Pulse Rate 89 89 82 Respiratory Rate 22 22 22 Blood Pressure 182/90 H 182/90 H 167/96 H Pulse Oximetry 96 94 L 96 03/13/18 06:42 03/13/18 07:20 03/13/18 08:00 Temperature Pulse Rate 83 93 H Respiratory Rate 22 20 Blood Pressure 165/86 H Pulse Oximetry 99 92 L 03/13/18 08:31 Temperature Pulse Rate 87 Respiratory Rate 22 Blood Pressure 160/73 H Pulse Oximetry Intake & Output 03/12/18 03/13/18 03/13/18 18:59 06:59 18:59 Output Total 350 / 350 Balance -350 / -350 Weight 99.5 kg 99.5 kg Output: Urine 350 / 350 Other: Date of Last Bowel Movement 03/12/18 Weight On Admission 99.5 kg Narrative: GENERAL: Well-developed, well-nourished patient in NAD. Obese male. On supplemental O2. SKIN: Warm and dry. No rash. HEAD: Normocephalic. Atraumatic. EYES: Pupils equal and round. No scleral icterus. No injection or drainage. ENT: No nasal bleeding or discharge. Mucous membranes pink and moist. NECK: Supple. Trachea midline. CARDIOVASCULAR: Regular rate and rhythm. S1, S2 noted. No murmur appreciated. RESPIRATORY: No accessory muscle use. Lower lobe crackles. Breath sounds equal bilaterally. GASTROINTESTINAL: Abdomen soft, non-tender, round. Normoactive bowel sounds x4. MUSCULOSKELETAL: No obvious deformities. Extremities without clubbing, cyanosis , or edema. NEUROLOGICAL: Awake and alert. No obvious cranial nerve deficits. Motor grossly within normal limits. 5/5 muscle strength in bilateral upper and lower extremities. Normal speech. PSYCHIATRIC: Appropriate mood and affect; insight and judgment normal. Results - Labs CBC & Chem 7: 03/14/18 06:51 03/14/18 06:51 Labs: Laboratory Results - last 24 hr 03/13/18 03/13/18 03/13/18 06:10 06:10 06:10 CBC w Diff Auto diff final WBC 7.2 RBC 4.10 L Hgb 11.6 L Hct 34.7 L MCV 84.4 MCH 28.3 MCHC 33.5 RDW 14.4 Plt Count 264 MPV 8.1 Neut % (Auto) 69.6 Lymph % (Auto) 22.5 [place] % (Auto) 4.4 Eos % (Auto) 2.7 Baso % (Auto) 0.8 Neut # (Auto) 5.0 Lymph # (Auto) 1.6 [place] # (Auto) 0.3 Eos # (Auto) 0.2 Baso # (Auto) 0.1 WBC Differential . Differential Comment . PT 9.6 L INR 0.9 APTT 31.6 H Sodium 133 L Potassium 4.7 Chloride 99 Carbon Dioxide 26.2 Anion Gap 8 BUN 25 H Creatinine 1.90 H Estimated GFR 36 L POC Glucose Random Glucose 529 H* Calcium 8.0 L Total Bilirubin 0.4 AST 12 L ALT 20 Alkaline Phosphatase 125 H Total Creatine Kinase 224 CK-MB (CK-2) 5.8 H Troponin I 0.35 H B-Natriuretic Peptide Total Protein 7.0 Albumin 2.7 L 03/13/18 03/13/18 06:10 07:59 CBC w Diff WBC RBC Hgb Hct MCV MCH MCHC RDW Plt Count MPV Neut % (Auto) Lymph % (Auto) [place] % (Auto) Eos % (Auto) Baso % (Auto) Neut # (Auto) Lymph # (Auto) [place] # (Auto) Eos # (Auto) Baso # (Auto) WBC Differential Differential Comment PT INR APTT Sodium Potassium Chloride Carbon Dioxide Anion Gap BUN Creatinine Estimated GFR POC Glucose 531 H* Random Glucose Calcium Total Bilirubin AST ALT Alkaline Phosphatase Total Creatine Kinase CK-MB (CK-2) Troponin I B-Natriuretic Peptide 603 H Total Protein Albumin - Imaging Impressions Chest X-Ray 03/13/18 06:09 CONCLUSION: Moderate basilar pleural-parenchymal opacities bilaterally Caprini VTE Risk Assessment Caprini VTE Risk Assessment: Moderate/High Risk (score >= 2) Caprini Risk Assessment Model: Point Value = 1 Point Value = 2 Point Value = 3 Point Value = 5 Age 41-60 Minor surgery BMI > 25 kg/m2 Swollen legs Varicose veins or History of unexplained or recurrent spontaneous Oral contraceptives or hormone replacement Sepsis (< 1 month) Serious lung disease, including pneumonia (< 1 month) Abnormal pulmonary function Acute myocardial infarction Congestive heart failure (< 1 month) History of inflammatory bowel disease Medical patient at bed rest Age 61-74 Arthroscopic surgery Major open surgery (> 45 min) Laparoscopic surgery (> 45 min) Malignancy Confined to bed (> 72 hours) Immobilizing plaster cast Central venous access Age >= 75 History of VTE Family history of VTE Factor V Leiden Prothrombin [id number] Lupus anticoagulant Anticardiolipin antibodies Elevated serum homocysteine Heparin-induced thrombocytopenia Other congenital or acquired thrombophilia Stroke (< 1 month) Elective arthroplasty Hip, pelvis, or leg fracture Acute spinal cord injury (< 1 month) Prophylaxis Regimen: Total Risk Factor Score Risk Level Prophylaxis Regimen 0-1 Low Early ambulation 2 Moderate Order ONE of the following: *Sequential Compression Device (SCD) *Heparin 5000 units SQ BID 3-4 Higher Order ONE of the following medications: *Heparin 5000 units SQ TID *Enoxaparin/Lovenox 40 mg SQ daily (WT < 150 kg, CrCl > 30 mL/min) *Enoxaparin/Lovenox 30 mg SQ daily (WT < 150 kg, CrCl > 10-29 mL/min) *Enoxaparin/Lovenox 30 mg SQ BID (WT < 150 kg, CrCl > 30 mL/min) AND/OR *Sequential Compression Device (SCD) 5 or more Highest Order ONE of the following medications: *Heparin 5000 units SQ TID (Preferred with Epidurals) *Enoxaparin/Lovenox 40 mg SQ daily (WT < 150 kg, CrCl > 30 mL/min) *Enoxaparin/Lovenox 30 mg SQ daily (WT < 150 kg, CrCl > 10-29 mL/min) *Enoxaparin/Lovenox 30 mg SQ BID (WT < 150 kg, CrCl > 30 mL/min) AND *Sequential Compression Device (SCD) Assessment and Plan - Assessment (1) Elevated troponin Code(s): R74.8 - Abnormal levels of other serum enzymes Status: Acute (2) Acute exacerbation of CHF (congestive heart failure) Code(s): I50.9 - Heart failure, unspecified Status: Acute - Plan This is a 63-year-old male patient with: Acute on chronic exacerbation of systolic CHF -Chest x-ray reviewed showing basilar pleural parenchymal opacities bilaterally. -Patient given Lasix IV in ED. Placed on Lasix IV daily. Monitor intake and output. BNP 603. -Continue supplemental O2 to keep oxygen saturations greater than 92%. -Echo reviewed from last month showing EF 40-45%. Follows with Dr. Garrett. Elevated troponin likely Type II [place] secondary to CHF exacerbation, hypoxia and increased need for O2 History of CAD and stent placement -Suspect secondary to CHF exacerbation. Serial troponins and serial EKGs ordered to rule out ACS. Patient denies any chest pain prior to or since presentation to the hospital. -Troponin 0.35/0.4. Awaiting third set. EKG reviewed showing controlled heart rate, no ST changes to get any ischemia, there are some Q waves present in the septal anterior leads. -Attending cardiac telemetry, monitor for any arrhythmias. Intermediate care for closer observation. -Echo results as above. -Continue home JEREMY, nitrate hand Plavix and aspirin. -Nitro placed applied in ED for hypertension. Given aspirin. Will continue to monitor. Elevated glucose History of type 2 diabetes insulin-dependent Noncompliance -Glucose over 500 upon presentation. Patient states he was too weak to take his insulin last evening. Not in DKA, anion gap closed. Bicarb 26.2. -Accu-Chek before meals at bedtime, sliding scale, cover as needed. Will hold off on IV steroids for now. Patient lung sounds cta. No wheezing. -Will start Levemir 10 subcu twice daily. Monitor blood sugar trends. -Added hemoglobin A1c. Follow. Acute on chronic kidney disease -Creatinine 1.9/GFR 36. Upon review of records patient does have chronic kidney disease stage III. Creatinine is mildly elevated upon normal baseline. Will continue to monitor. -Avoid nephrotoxins. -BMP in a.m. COPD not in exacerbation Chronic respiratory failure with need for home O2 -Patient was given DuoNeb, IV Solu-Medrol in ED. Continue scheduled and PRN duonebs. Added Mucinex and nasal spray. -Chest x-ray indicative of CHF exacerbation. -Continue on home O2, patient uses 3 L at home. Hyperlipidemia, chronic: We will continue home statin. BPH: Will continue home Flomax. Chronic back pain: E-force database reviewed, patient takes [place] 10/325 mg tablets every 6 hours as needed. Will continue. DVT prophylaxis: SCDs. Heparin. (2) Acute exacerbation of CHF (congestive heart failure) Qualifiers: Heart failure type: unspecified Qualified Code(s): I50.9 - Heart failure, unspecified
[2018-03-13] MEDS: Pregabalin 75 MG Capsule PO SCH ×2 (11:51→20:55)
[2018-03-13] MEDS ORDERED: MethylPREDNISolone Sod Succinate Inj 40 MG/ML Vial IV.PUSH SCH (12:00)
[2018-03-13 12:11] LABS: Troponin I 0.43 ng/mL (0.02-0.05)
[2018-03-13] MEDS ORDERED: Insulin Detemir Inj 1,000 UNIT/10 ML Vial SQ SCH (13:00)
--- NOTE | 2018-03-13 13:05 | ECG ---
Date Performed: 03/13/2018 Time Performed: 06:59:47 PTAGE: 63 years EKG: Sinus rhythm ANTERIOR MYOCARDIAL INFARCTION ABNORMAL ECG PREVIOUS TRACING : 01/15/2018 20.32 DOCTOR: Tori Simms Interpretating Date/Time 03/13/2018 13:03:18
[2018-03-13] MEDS ORDERED: Insulin Detemir Inj 1,000 UNIT/10 ML Vial SQ ONE (14:45)
[2018-03-13] MEDS: Benzonatate 100 MG Capsule PO PRN (16:56)
[2018-03-13 17:16] LABS: Potassium 4.4 meq/L (3.5-5.1)
[2018-03-13 17:18] LABS: Calcium 8.3 mg/dL (8.5-10.1)
[2018-03-13 17:19] LABS: Carbon Dioxide 25.4 meq/L (21.0-32.0)
[2018-03-13 18:13] LABS: Troponin I 0.42 ng/mL (0.02-0.05)
[2018-03-13] MEDS: guaiFENesin 600 MG ER Tablet PO SCH (20:55)
[2018-03-13] MEDS: Insulin Detemir Inj 1,000 UNIT/10 ML Vial SQ SCH (20:56)
[2018-03-14] MEDS: Insulin NovoLOG Aspart Correctional Sugar Inj SQ SCH ×4 (00:19→13:20)
[2018-03-14] MEDS: Benzonatate 100 MG Capsule PO PRN (00:20)
[2018-03-14 07:09] LABS: Baso % (Auto) 0.3 % (0.0-2.0); Eos # (Auto) 0.1 th/mm3 (0.0-0.4); Eos % (Auto) 0.6 % (0.0-4.0); Hematocrit 30.9 % (39.0-51.0); Hemoglobin 10.8 gm/dL (13.0-17.0); Lymph # (Auto) 2.4 th/mm3 (1.0-4.8); Lymph % (Auto) 24.1 % (9.0-44.0); Mean Corpuscular Hemoglobin 29.5 pg (27.0-34.0); Mean Corpuscular Volume 84.2 fL (80.0-100.0); Mean Platelet Volume 7.8 fL (7.0-11.0); Mono # (Auto) 0.9 th/mm3 (0.0-0.9); Mono % (Auto) 9.1 % (0.0-8.0); Neut # (Auto) 6.7 th/mm3 (1.8-7.7); Neut % (Auto) 65.9 % (16.0-70.0); Platelet Count 258 th/mm3 (150-450); Red Blood Count 3.67 mil/mm3 (4.50-5.90); Red Cell Distribution Width 14.3 % (11.6-17.2); White Blood Count 10.1 th/mm3 (4.0-11.0)
[2018-03-14 07:16] LABS: Potassium 3.8 meq/L (3.5-5.1)
[2018-03-14 07:19] LABS: Calcium 8.5 mg/dL (8.5-10.1)
[2018-03-14 07:20] LABS: Carbon Dioxide 28.2 meq/L (21.0-32.0)
--- NOTE | 2018-03-14 07:51 | P.PNIM ---
Subjective Interval history: Follow-up CHF exacerbation and elevated troponins. Patient seen and examined sitting up in bed comfortably no apparent distress. Patient is on room air has ambulated in the room today without any distress. His saturations have stayed above 95%. He denies any orthopnea or shortness of breath with exertion. He has improved significantly overnight. His blood sugars are trended down, he has been extensively educated about importance of compliance with the medications ordered. He has been educated about restricting his sodium as well as his sugar. He has been advised to follow-up with his custom stock maker regarding the elevated but flat troponins. At this time he does not have any chest pain. Patient denies ever having chest pain prior to arrival or during entire hospitalization. It is suspected that this elevation is secondary to CHF exacerbation and a type II reaction. Attempted to get in touch with patient's custom stock maker, Dr. Garrett, and states he does not come to this hospital. I have advised patient to follow-up with his custom stock maker within a week. He is agreeable. All questions have been answered to the best my ability. Patient will be discharged home to follow-up with PCP and custom stock maker. Prescription sent to pharmacy. Physical Exam Vital signs: Vital Signs 03/13/18 08:00 03/13/18 08:31 03/13/18 10:00 Temperature Pulse Rate 87 93 H Respiratory Rate 22 Blood Pressure 160/73 H Pulse Oximetry 92 L 03/13/18 11:59 03/13/18 12:00 03/13/18 12:53 Temperature 98.1 F Pulse Rate 88 Respiratory Rate 20 18 Blood Pressure 146/86 H Pulse Oximetry 92 L 90 L 03/13/18 14:57 03/13/18 16:00 03/13/18 17:43 Temperature 98.7 F Pulse Rate 93 H 90 Respiratory Rate 17 19 16 Blood Pressure 127/62 Pulse Oximetry 92 L 03/13/18 18:23 03/13/18 19:23 03/13/18 20:00 Temperature 98.7 F Pulse Rate 91 H 90 Respiratory Rate 18 16 20 Blood Pressure 142/72 H Pulse Oximetry 93 L 94 L 03/14/18 00:00 03/14/18 00:05 03/14/18 04:00 Temperature 97.5 F L 98.1 F Pulse Rate 87 72 Respiratory Rate 29 H 19 16 Blood Pressure 137/78 128/60 Pulse Oximetry Intake & Output 03/13/18 03/14/18 03/14/18 18:59 06:59 18:59 Intake Total 1280 / 1280 Output Total 187 / 1875 950 / 950 Balance -1875 / -1875 330 / 330 Weight 99.5 kg 101.8 kg Intake: Oral 1280 / 1280 Output: Urine 1874 / 1875 950 / 950 Other: # Voids 5 Date of Last Bowel Movement 03/12/18 03/14/18 Weight On Admission 99.5 kg Narrative: GENERAL: Well-developed, well-nourished patient in NAD. Obese male. On RA. SKIN: Warm and dry. No rash. HEAD: Normocephalic. Atraumatic. EYES: Pupils equal and round. No scleral icterus. No injection or drainage. ENT: No nasal bleeding or discharge. Mucous membranes pink and moist. NECK: Supple. Trachea midline. CARDIOVASCULAR: Regular rate and rhythm. S1, S2 noted. No murmur appreciated. RESPIRATORY: No accessory muscle use. Lung CTA. Breath sounds equal bilaterally. GASTROINTESTINAL: Abdomen soft, non-tender, round. Normoactive bowel sounds x4. MUSCULOSKELETAL: No obvious deformities. Extremities without clubbing, cyanosis , or edema. NEUROLOGICAL: Awake and alert. No obvious cranial nerve deficits. Motor grossly within normal limits. 5/5 muscle strength in bilateral upper and lower extremities. Normal speech. PSYCHIATRIC: Appropriate mood and affect; insight and judgment normal. Results - Labs CBC & Chem 7: 03/14/18 06:51 03/14/18 06:51 Laboratory Results - last 24 hr 03/13/18 03/13/18 03/13/18 07:59 11:33 11:41 CBC w Diff WBC RBC Hgb Hct MCV MCH MCHC RDW Plt Count MPV Neut % (Auto) Lymph % (Auto) [place] % (Auto) Eos % (Auto) Baso % (Auto) Neut # (Auto) Lymph # (Auto) [place] # (Auto) Eos # (Auto) Baso # (Auto) WBC Differential Differential Comment Sodium Potassium Chloride Carbon Dioxide Anion Gap BUN Creatinine Estimated GFR POC Glucose 531 H* Greater than 600 H* Random Glucose Calcium Total Creatine Kinase 156 Troponin I 0.43 H 03/13/18 03/13/18 03/13/18 11:41 14:18 14:23 CBC w Diff WBC RBC Hgb Hct MCV MCH MCHC RDW Plt Count MPV Neut % (Auto) Lymph % (Auto) [place] % (Auto) Eos % (Auto) Baso % (Auto) Neut # (Auto) Lymph # (Auto) [place] # (Auto) Eos # (Auto) Baso # (Auto) WBC Differential Differential Comment Sodium Potassium Chloride Carbon Dioxide Anion Gap BUN Creatinine Estimated GFR POC Glucose Greater than 600 H* Random Glucose 601 H* 647 H* Calcium Total Creatine Kinase Troponin I 03/13/18 03/13/18 03/13/18 16:18 17:00 17:40 CBC w Diff WBC RBC Hgb Hct MCV MCH MCHC RDW Plt Count MPV Neut % (Auto) Lymph % (Auto) [place] % (Auto) Eos % (Auto) Baso % (Auto) Neut # (Auto) Lymph # (Auto) [place] # (Auto) Eos # (Auto) Baso # (Auto) WBC Differential Differential Comment Sodium 134 L Potassium 4.4 Chloride 98 Carbon Dioxide 25.4 Anion Gap 11 BUN 33 H Creatinine 2.50 H Estimated GFR 26 L POC Glucose 520 H* Random Glucose 513 H* D Calcium 8.3 L Total Creatine Kinase 133 Troponin I 0.42 H 03/13/18 03/14/18 03/14/18 19:59 00:10 04:01 CBC w Diff WBC RBC Hgb Hct MCV MCH MCHC RDW Plt Count MPV Neut % (Auto) Lymph % (Auto) [place] % (Auto) Eos % (Auto) Baso % (Auto) Neut # (Auto) Lymph # (Auto) [place] # (Auto) Eos # (Auto) Baso # (Auto) WBC Differential Differential Comment Sodium Potassium Chloride Carbon Dioxide Anion Gap BUN Creatinine Estimated GFR POC Glucose 401 H 254 H 189 H Random Glucose Calcium Total Creatine Kinase Troponin I 03/14/18 03/14/18 06:51 06:51 CBC w Diff Auto diff final WBC 10.1 RBC 3.67 L Hgb 10.8 L Hct 30.9 L MCV 84.2 MCH 29.5 MCHC 35.0 RDW 14.3 Plt Count 258 MPV 7.8 Neut % (Auto) 65.9 Lymph % (Auto) 24.1 [place] % (Auto) 9.1 H Eos % (Auto) 0.6 Baso % (Auto) 0.3 Neut # (Auto) 6.7 Lymph # (Auto) 2.4 [place] # (Auto) 0.9 Eos # (Auto) 0.1 Baso # (Auto) 0.0 WBC Differential . Differential Comment . Sodium 141 Potassium 3.8 Chloride 104 Carbon Dioxide 28.2 Anion Gap 9 BUN 37 H Creatinine 2.00 H Estimated GFR 34 L POC Glucose Random Glucose 69 L D Calcium 8.5 Total Creatine Kinase Troponin I Assessment and Plan - Assessment (1) Elevated troponin Code(s): R74.8 - Abnormal levels of other serum enzymes Status: Acute (2) Acute exacerbation of CHF (congestive heart failure) Code(s): I50.9 - Heart failure, unspecified Status: Acute - Plan This is a 63-year-old male patient with: Acute on chronic exacerbation of systolic CHF. Exacerbation improved. -Chest x-ray reviewed showing basilar pleural parenchymal opacities bilaterally. -Patient given Lasix IV in ED. Placed on Lasix IV daily. Monitor intake and output. BNP 603. Diuresing well. -Continue supplemental O2 to keep oxygen saturations greater than 92%. Patient is comfortable on RA. -Echo reviewed from last month showing EF 40-45%. Follows with Dr. Garrett. -RX for lasix 40 mg PO daily as well as supplemental O2. Elevated troponin likely Type II [place] secondary to CHF exacerbation and increased need for O2 History of CAD and stent placement -Suspect secondary to CHF exacerbation. Serial troponins and serial EKGs ordered to rule out ACS. Patient denies any chest pain prior to or since presentation to the hospital. -Troponins flat. EKG reviewed showing controlled heart rate, no ST changes to get any ischemia, there are some Q waves present in the septal anterior leads. -Continued on cardiac telemetry, monitor for any arrhythmias. None overnight. -Echo results as above. -Continue home JEREMY, nitrate hand Plavix and aspirin. -Nitro placed applied in ED for hypertension. Patient denies ever having chest pain. Given aspirin. -Attempted to consult patient's custom stock maker as well as get in touch with him to update about patient status. Patient's custom stock maker does not see here in hospital. -I do believe that this elevation is secondary to Type II [place] due to his CHF exacerbation with compounding acute on chronic resp failure. He has not had any chest pain. -Patient does state he has close follow up with PCP And custom stock maker and states he will follow up with him. DC home on RX as written. Encouraged patient to comply with regimen. Elevated glucose. Improved. History of type 2 diabetes insulin-dependent. Known noncompliance with diabetic medications at home -Glucose over 500 upon presentation. Patient states he was too weak to take his insulin last evening. Not in DKA, anion gap closed. Bicarb 26.2. -Accu-Chek before meals at bedtime, sliding scale, cover as needed. -Started on Levemir 20 units BID. Trended down. -Added hemoglobin A1c. PCP to follow. Acute on chronic kidney disease -Creatinine 1.9/GFR 36. Upon review of records patient does have chronic kidney disease stage III. Creatinine is mildly elevated upon normal baseline. -Avoid nephrotoxins. -BMP in a.m. COPD not in exacerbation Chronic respiratory failure with need for home O2 -Patient was given DuoNeb, IV Solu-Medrol in ED. Continue scheduled and PRN duonebs. Added Mucinex and nasal spray. -Chest x-ray indicative of CHF exacerbation. -Patient has been weaned off O2. Doing well after diuresis overnight, stable on room air. Hyperlipidemia, chronic: We will continue home statin. BPH: Will continue home Flomax. Chronic back pain: E-force database reviewed, patient takes [place] 10/325 mg tablets every 6 hours as needed. Will continue. DVT prophylaxis: SCDs. Heparin. Discharge Planning: DC home. Follow up PCP and custom stock maker. Activity as tolerated. Diabetic and heart healthy diet. RX as written. (2) Acute exacerbation of CHF (congestive heart failure) Qualifiers: Heart failure type: unspecified Qualified Code(s): I50.9 - Heart failure, unspecified
[2018-03-14] MEDS: Pregabalin 75 MG Capsule PO SCH (08:05)
[2018-03-14] MEDS: Heparin - SQ 10,000 UNITS/ML Vial SQ SCH (08:05)
[2018-03-14] MEDS: guaiFENesin 600 MG ER Tablet PO SCH (08:07)
[2018-03-14] MEDS ORDERED: Isosorbide Mononitrate 30 MG ER 24HR Tablet (Imdur) PO SCH (09:00)
[2018-03-14] MEDS ORDERED: Metoprolol Tartrate 25 MG Tablet PO SCH (09:00)
--- NOTE | 2018-03-14 09:59 | ECG ---
Date Performed: 03/13/2018 Time Performed: 17:35:42 PTAGE: 63 years EKG: Sinus rhythm ANTERIOR MYOCARDIAL INFARCTION ABNORMAL ECG PREVIOUS TRACING : 03/13/2018 06.59 DOCTOR: Tori Simms Interpretating Date/Time 03/14/2018 09:55:31
[2018-03-14] MEDS: Insulin Detemir Inj 1,000 UNIT/10 ML Vial SQ SCH (10:18)
[2018-03-14 13:10] LABS: Hemoglobin A1c 11.6 % (4.3-6.0)
== END 2018-03-14 02:00 | disposition home or self-care (01) ==
LOC: PHED 05:59 → PHEDA 07:25 → INTOOBSV 07:25 → PHICU 08:28
PROVIDERS: ADMIT Internal Medicine; ATTEND Internal Medicine
DX: N18.3 Chronic kidney disease, stage 3 (moderate); E11.65 Type 2 diabetes mellitus with hyperglycemia; J44.9 Chronic obstructive pulmonary disease, unspecified; Z91.19 Patient's noncompliance with other medical treatment and regimen; N40.0 Benign prostatic hyperplasia without lower urinary tract symptoms; E66.3 Overweight; I25.10 Atherosclerotic heart disease of native coronary artery without angina pectoris; Z91.14 Patient's other noncompliance with medication regimen; Z79.02 Long term (current) use of antithrombotics/antiplatelets; Z99.81 Dependence on supplemental oxygen; E78.5 Hyperlipidemia, unspecified; Z79.4 Long term (current) use of insulin; G89.29 Other chronic pain; I50.23 Acute on chronic systolic (congestive) heart failure; I13.0 Hypertensive heart and chronic kidney disease with heart failure and stage 1 through stage 4 chronic kidney disease, or unspecified chronic kidney disease; Z95.5 Presence of coronary angioplasty implant and graft; J96.21 Acute and chronic respiratory failure with hypoxia; F17.200 Nicotine dependence, unspecified, uncomplicated; E78.00 Pure hypercholesterolemia, unspecified; Z68.35 Body mass index [BMI] 35.0-35.9, adult

== ENCOUNTER 2018-03-28 02:20 | Inpatient (IN) ==
[2018-03-28 03:26] LABS: Baso # (Auto) 0.3 th/mm3 (0.0-0.2); Baso % (Auto) 2.3 % (0.0-2.0); Hematocrit 32.5 % (39.0-51.0); Hemoglobin 11.1 gm/dL (13.0-17.0); Lymph # (Auto) 1.2 th/mm3 (1.0-4.8); Lymph % (Auto) 9.2 % (9.0-44.0); Mean Corpuscular HGB Conc 34.3 % (32.0-36.0); Mean Corpuscular Hemoglobin 29.2 pg (27.0-34.0); Mean Corpuscular Volume 85.2 fL (80.0-100.0); Mean Platelet Volume 8.9 fL (7.0-11.0); Mono # (Auto) 0.2 th/mm3 (0.0-0.9); Mono % (Auto) 1.2 % (0.0-8.0); Neut # (Auto) 11.5 th/mm3 (1.8-7.7); Neut % (Auto) 87.3 % (16.0-70.0); Platelet Count 259 th/mm3 (150-450); Red Blood Count 3.81 mil/mm3 (4.50-5.90); Red Cell Distribution Width 13.9 % (11.6-17.2); White Blood Count 13.2 th/mm3 (4.0-11.0)
[2018-03-28 03:34] LABS: Chloride 94 meq/L (98-107); Potassium 4.5 meq/L (3.5-5.1); Sodium 128 meq/L (136-145)
[2018-03-28 03:37] LABS: Calcium 8.1 mg/dL (8.5-10.1)
[2018-03-28 03:38] LABS: Albumin 2.6 g/dL (3.4-5.0); Anion Gap 12 meq/L (5-15); Blood Urea Nitrogen 44 mg/dL (7-18); Carbon Dioxide 22.4 meq/L (21.0-32.0)
[2018-03-28 03:41] LABS: Alanine Aminotransferase 24 U/L (12-78); Aspartate Aminotransferase 86 U/L (15-37); Glomerular Filtration Rate 29 mL/min (>89)
[2018-03-28 03:43] LABS: Total Protein 6.9 g/dL (6.4-8.2)
[2018-03-28 03:44] LABS: Alkaline Phosphatase 108 U/L (45-117)
[2018-03-28 03:47] LABS: Glucose,Random 636 mg/dL (74-106)
[2018-03-28 03:51] LABS: Platelet Estimate Normal (Normal); Platelet Morphology Normal (Normal); RBC Morphology Normal (Normal)
--- NOTE | 2018-03-28 04:57 | ED ---
HPI General Chief complaint: Shortness of Breath/Dyspnea Stated complaint: Sob/EVAC Time Seen by Provider: 03/28/18 03:00 Source: patient Mode of arrival: ambulatory Limitations: no limitations History of Present Illness HPI narrative: This is a 63-year-old male with a history of coronary artery disease and stents who has congestive heart failure with an ejection fraction of 40-45%, COPD on home oxygen, diabetes and chronic kidney disease who presents with 1 week of increasing shortness of breath, constant, moderate severity associated with swelling in his legs and difficulty laying flat. He says today he has had increasing sputum production with green phlegm and had worsening shortness of breath prior to arrival. He denies any fevers or chills. He says he has had chest tightness intermittently over the past month, ever since he was admitted to the hospital earlier in March. He is currently chest pain-free in the emergency department. He was seen in the emergency department yesterday and had an x-ray and was diagnosed with pneumonia. He was discharged on steroids and antibiotics. He returns today with worsening shortness of breath. He was given 3 bronchodilator treatments prior to arrival and nitroglycerin. Related Data Home Medications Medication Instructions Recorded Confirmed aspirin [Aspir-81] 325 mg PO DAILY 01/15/18 03/28/18 atorvastatin [Lipitor] 80 mg PO HS 01/15/18 03/28/18 hydrocodone-acetaminophen [[place]] 1 tab PO Q6H 01/15/18 03/28/18 insulin regular human [Humulin R 1 sliding scale dose SUB-Q UD 01/15/18 03/28/18 Regular U-100 Insuln] isosorbide mononitrate 30 mg PO DAILY 01/15/18 03/28/18 lidocaine [Lidocaine Pain Relief] 1 patch TOPICAL Q8H 01/15/18 03/28/18 lisinopril 10 mg PO DAILY 01/15/18 03/28/18 metoprolol tartrate 25 mg PO DAILY 01/15/18 03/28/18 ranitidine HCl [Zantac] 150 mg PO BID 01/15/18 03/28/18 sitagliptin-metformin [Janumet] 1 tab PO DAILY 01/15/18 03/28/18 tamsulosin [Flomax] 0.4 mg PO HS 01/15/18 03/28/18 Previous Rx's Medication Instructions Recorded clopidogrel [Plavix] 75 mg PO DAILY tab 01/16/18 sodium chloride [[place] Nasal] 1 spray INTRANASAL Q4H #1 ml 01/16/18 furosemide [Lasix] 40 mg PO DAILY 30 Days #30 tab 03/14/18 insulin detemir U-100 [Levemir 20 unit SUBCUT BID 30 Days #12 ml 03/14/18 U-100 Insulin] ipratropium bromide 0.125 ml/kg INHALATION Q8H #90 ml 03/14/18 ipratropium bromide [Atrovent HFA] 1 puff INHALATION BID #1 g 03/14/18 potassium chloride 8 meq PO DAILY 30 Days #30 cap 03/14/18 pregabalin [Lyrica] 75 mg PO BID cap 03/14/18 albuterol sulfate 2.5 mg INHALATION TID-QID PRN #30 03/27/18 each azithromycin [Zithromax] 500 mg PO DAILY 7 Days #7 tab 03/27/18 nicotine 1 patch T-DERMAL DAILY #21 each 03/27/18 prednisone See Label Instructions PO PER PKG 03/27/18 DIR #21 each Allergies Allergy/AdvReac Type Severity Reaction Status Date / Time No Known Allergies Allergy Verified 03/27/18 10:29 Review of Systems ROS: all other systems reviewed are negative [facility] Medical History Medical History Congestive heart failure (Acute) Diabetes (Acute) High cholesterol (Acute) Hypertension (Acute) PAD (peripheral artery disease) (Acute) Surgical History Surgical History H/O vascular surgery (Acute) Family History Family History Other Diabetes Social History Social History Substance History: No History of Abuse Second Hand Smoke Exposure: No Smoking Status: Current every day smoker Tobacco Type: E-Cigarettes How Often Do You Have a Drink Containing Alcohol: Never Recent Travel in [place] within the Last 8 Weeks: No Recent Out of Country Travel within the Last 8 Weeks: No Immunization History Tetanus Immunization: <5 Years Exam Narrative Exam Narrative: GENERAL:Well appearing, no acute distress SKIN: Focused skin assessment warm and dry. HEAD: Atraumatic. Normocephalic. EYES: Pupils equal and round. No injection or drainage. ENT: Moist mucous membranes NECK: Trachea midline. CARDIOVASCULAR: Regular rate and rhythm. No murmur appreciated. 2+ bilateral lower extremity edema. RESPIRATORY: Diffuse wheezing bilaterally. GASTROINTESTINAL: Abdomen soft, non-tender, nondistended. MUSCULOSKELETAL: No obvious deformities. NEUROLOGICAL: Awake and alert. No obvious cranial nerve deficits. Moving all extremities. PSYCHIATRIC: Appropriate mood and affect; insight and judgment normal. Course Initial Documented Vital Signs Temperature 98.6 F 03/28/18 02:22 Pulse Rate 103 H 03/28/18 02:22 Respiratory Rate 20 03/28/18 02:22 Blood Pressure 104/84 03/28/18 02:22 Pulse Oximetry 98 03/28/18 02:22 Last Documented Vital Signs Temperature 98.6 F 03/28/18 02:22 Pulse Rate 92 H 03/28/18 06:21 Respiratory Rate 20 03/28/18 05:13 Blood Pressure 148/77 H 03/28/18 06:21 Pulse Oximetry 99 03/28/18 05:13 Medical Decision Making [facility] Narrative Medical decision making narrative: This is a 63-year-old male who presents to the emergency department with increasing shortness of breath. It has been progressive and worsening over the past 48 hours. He says he presented today because his shortness of breath increased and he developed green sputum production. He received bronchodilators with EVAC and nitroglycerin prior to arrival. Upon arrival in the emergency department he appeared comfortable, and did not report any chest pain. He was placed on a monitor and an IV was established. Labs were obtained demonstrating an elevated BNP and chronic kidney disease as well as hyperglycemia. An EKG was obtained which demonstrates concerning ST segment elevation in V4 and V5 with Q waves developing in V5. Troponin came back at 22. In the absence of active symptoms , the patient is not a candidate for STEMI alert or emergent cardiac catheterization. Given the timeline of his symptoms, I suspect he may have had a myocardial infarction at some point in the past several days, but his symptoms have resolved. Patient was given aspirin and started on heparin and will be admitted for medical management and cardiology consultation. Case was discussed with Dr. Savage hidalgo for cardiology who agrees with plan, and case was discussed with Dr. Haque who accepted the patient to transfer to [facility]. Medical Screen Exam Complete: Yes Emergency Medical Condition: Yes Differential Diagnosis Differential Diagnosis: congestive heart failure, acute coronary syndrome, pneumonia, pulmonary embolism Lab Data Lab results reviewed: Yes I reviewed the patient's lab results. Lab results narrative: mild leukocytosis BNP 832 troponin 22 Result diagrams: 03/28/18 03:11 03/28/18 03:11 Lab Results 03/28/18 03/28/18 03/28/18 Range/Units 03:11 03:11 03:11 CBC w Diff Slide review pending WBC 13.2 H (4.0-11.0) th/mm3 RBC 3.81 L (4.50-5.90) mil/mm3 Hgb 11.1 L (13.0-17.0) gm/dL Hct 32.5 L (39.0-51.0) % MCV 85.2 (80.0-100.0) fL MCH 29.2 (27.0-34.0) pg MCHC 34.3 (32.0-36.0) % RDW 13.9 (11.6-17.2) % Plt Count 259 (150-450) th/mm3 MPV 8.9 (7.0-11.0) fL Neut % (Auto) 87.3 H (16.0-70.0) % Lymph % (Auto) 9.2 (9.0-44.0) % [place] % (Auto) 1.2 (0.0-8.0) % Eos % (Auto) 0.0 (0.0-4.0) % Baso % (Auto) 2.3 H (0.0-2.0) % Neut # (Auto) 11.5 H (1.8-7.7) th/mm3 Lymph # (Auto) 1.2 (1.0-4.8) th/mm3 [place] # (Auto) 0.2 (0.0-0.9) th/mm3 Eos # (Auto) 0.0 (0.0-0.4) th/mm3 Baso # (Auto) 0.3 H (0.0-0.2) th/mm3 WBC Differential . Diff Scan Auto diff confirmed Differential Comment . Platelet Estimate Normal (Normal) Platelet Morphology Normal (Normal) RBC Morphology Normal (Normal) PT (9.8-11.6) sec INR Ratio APTT (24.3-30.1) sec Sodium 128 L (136-145) meq/L Potassium 4.5 (3.5-5.1) meq/L Chloride 94 L (98-107) meq/L Carbon Dioxide 22.4 (21.0-32.0) meq/L Anion Gap 12 (5-15) meq/L BUN 44 H (7-18) mg/dL Creatinine 2.30 H (0.60-1.30) mg/dL Estimated GFR 29 L (>89) mL/min Random Glucose 636 H* (74-106) mg/dL Calcium 8.1 L (8.5-10.1) mg/dL Total Bilirubin 0.3 (0.2-1.0) mg/dL AST 86 H (15-37) U/L ALT 24 (12-78) U/L Alkaline Phosphatase 108 (45-117) U/L Troponin I 22.60 H* (0.02-0.05) ng/mL B-Natriuretic Peptide 832 H (0-100) pg/mL Total Protein 6.9 (6.4-8.2) g/dL Albumin 2.6 L (3.4-5.0) g/dL 03/28/18 Range/Units 05:31 CBC w Diff WBC (4.0-11.0) th/mm3 RBC (4.50-5.90) mil/mm3 Hgb (13.0-17.0) gm/dL Hct (39.0-51.0) % MCV (80.0-100.0) fL MCH (27.0-34.0) pg MCHC (32.0-36.0) % RDW (11.6-17.2) % Plt Count (150-450) th/mm3 MPV (7.0-11.0) fL Neut % (Auto) (16.0-70.0) % Lymph % (Auto) (9.0-44.0) % [place] % (Auto) (0.0-8.0) % Eos % (Auto) (0.0-4.0) % Baso % (Auto) (0.0-2.0) % Neut # (Auto) (1.8-7.7) th/mm3 Lymph # (Auto) (1.0-4.8) th/mm3 [place] # (Auto) (0.0-0.9) th/mm3 Eos # (Auto) (0.0-0.4) th/mm3 Baso # (Auto) (0.0-0.2) th/mm3 WBC Differential Diff Scan Differential Comment Platelet Estimate (Normal) Platelet Morphology (Normal) RBC Morphology (Normal) PT 10.0 (9.8-11.6) sec INR 1.0 Ratio APTT 28.7 (24.3-30.1) sec Sodium (136-145) meq/L Potassium (3.5-5.1) meq/L Chloride (98-107) meq/L Carbon Dioxide (21.0-32.0) meq/L Anion Gap (5-15) meq/L BUN (7-18) mg/dL Creatinine (0.60-1.30) mg/dL Estimated GFR (>89) mL/min Random Glucose (74-106) mg/dL Calcium (8.5-10.1) mg/dL Total Bilirubin (0.2-1.0) mg/dL AST (15-37) U/L ALT (12-78) U/L Alkaline Phosphatase (45-117) U/L Troponin I (0.02-0.05) ng/mL B-Natriuretic Peptide (0-100) pg/mL Total Protein (6.4-8.2) g/dL Albumin (3.4-5.0) g/dL ECG Data EKG Prior to Arrival: Yes Attestation: I personally reviewed and interpreted this ECG as follows: Prior ECG tracings: available for review Interpretation: EKG: New 1mm ST elevation in leads V4 and V5 with developing Q wave in V5 and reciprocal changes in the lateral leads. Discharge Plan Discharge Disposition Patient Disposition: 30 Still Patient Discharge Condition Condition: Stable Discharge Details Diagnosis: Myocardial infarction Physicians Team ED Provider: Felisha Kelley Primary Care Provider: UNKNOWN, Attending Provider: Stewart Rangel Other Providers: Sheree Wan Status ED Status: Admitted Patient
[2018-03-28] MEDS ORDERED: Heparin 10,000 UNITS/10 ML Vial (for IV use) IV.PUSH STA (05:14)
[2018-03-28] MEDS ORDERED: Acetaminophen 325 MG Tablet PO PRN (05:41)
[2018-03-28] MEDS ORDERED: Bisacodyl 10 MG Supp RECTAL PRN (05:41)
[2018-03-28 05:52] LABS: Activated Partial Thrombo Time 28.7 sec (24.3-30.1)
[2018-03-28] MEDS: Heparin Drip 25,000 UNIT/250 ML BAG IV.CONT PRN (05:57)
[2018-03-28] MEDS: Sod Chloride 0.9% Inj 1,000 ML IV.CONT SCH ×2 (06:02→19:22)
[2018-03-28] MEDS ORDERED: Dextrose 50% in Water 50 ML Vial IV.PUSH PRN (06:37)
--- NOTE | 2018-03-28 07:07 | XR ---
EXAM DATE: 03/28/2018 5:13 AM EDT AGE/SEX: 63 years / Male INDICATIONS: Shortness of breath. CLINICAL DATA: This is the patient's initial encounter. Patient reports that signs and symptoms have been present for 1 month and indicates a pain score of 0/10. MEDICAL/SURGICAL HISTORY: Hypertension. Diabetes mellitus type II. Chronic obstructive pulmon hakan disease. Congestive heart failure. Smoker. Coronary artery stent. COMPARISON: [facility], CHEST 1V SINGLE AP, 03/27/2018. . FINDINGS: A single AP erect portable view of the chest was obtained and demonstrates mild streaky perihilar and bibasilar opacities with no focal consolidation. There is apparent minimal blunting of the costophre vivi angles. The heart size is at the upper limits of normal. Overlying electrocardiogram leads are pr esent. The bony thorax is intact. CONCLUSION: 1. Mild streaky perihilar opacities which may represent early pulmonary edema. There is no focal con solidation. 2. Apparent minimal effusions. Electronically signed by: Toni Ambrocio MD 03/28/2018 7:06 AM EDT
[2018-03-28] MEDS: Insulin NovoLOG Aspart Correctional Sugar Inj SQ SCH ×4 (07:37→20:04)
[2018-03-28] MEDS: Senna/Docusate Sodium 8.6/50 MG Tablet PO SCH ×2 (08:51→20:03)
--- NOTE | 2018-03-28 10:10 | P.HP ---
History of Present Illness Primary Care Physician: UNKNOWN History of Present Illness: 63M with h/o CAD, PAD, DM2, HTN, COPD presents to the ER for the fifth time in the last 2 weeks complaining of marked dyspnea, worsened with exertion and associated with intermittent chest pain. On previous ER visits he had normal troponin levels and was treated for COPD. But at yesterday's visit, his initial troponin was 22.[address] changes evident on the first two EKG's. Patient says he is still short of breath, unable to lay flat on his bed, but denies cough, fever, or sputum changes. His blood glucose level has been elevated from frequent steroid (COPD) use over the last two weeks. He was seen 3-4 years ago in [place] and told he was "not a good candidate for stenting ". He cannot recall if he had chest pain at that time or if it was a scheduled procedure. He admits he did not follow up at that time. He denies any nausea, vomiting, diarrhea. Inpatient Certification: I certify that the inpatient services were ordered in accordance with Medicare regulations governing the order. This includes certification that hospital inpatient services are reasonable and necessary and in the case of services not specified as inpatient-only under 42 CFR 419.22(n), that they are appropriately provided as inpatient services in accordance to with the 2-midnight benchmark under 43 CFR 412.3(e) Estimated Total Length of Stay (Days): 2 Plans for Post Hospital Care: Not yet determined Review of Systems All other systems reviewed negative except as stated in HPI [facility] - History History Provided By: Patient - Medical History Medical History: Medical History (Last Reviewed 03/28/18 @ 05:22 by Felisha Kelley MD) Congestive heart failure Diabetes High cholesterol Hypertension PAD (peripheral artery disease) - Surgical History Surgical History: Surgical History (Last Reviewed 03/28/18 @ 05:22 by Felisha Kelley MD) H/O vascular surgery - Family History Family History: Family History (Last Reviewed 03/28/18 @ 05:22 by Felisha Kelley MD) Other Diabetes - Tobacco History Second Hand Smoke Exposure: No Tobacco Use In Past 30 Days: Yes Smoking Status: Current every day smoker Tobacco Type: E-Cigarettes - Alcohol History How Often Do You Have a Drink Containing Alcohol: Never - Substance Use History Substance History: No History of Abuse - Travel History Recent Travel in the [place] Within the Last 8 Weeks: No Recent Travel Out of the Country Within the Last 8 Weeks: No - Immunization History Tetanus Immunization: <5 Years Medications and Allergies Active Medications: Active Medications Acetaminophen (Tylenol) 650 mg PO Q4H PRN PRN Reason: Temp > 100.4 Al Hydroxide/Mg Hydroxide (Milk Of Magnesia Liq) 30 ml PO Q12H PRN PRN Reason: Mild Constipation Albuterol (Duoneb Neb (Prn)) 1 ampul NEB Q4HR NEB PRN PRN Reason: SOB/WHEEZING Last Admin: 03/28/18 08:56 Dose: 1 ampul Bisacodyl (Dulcolax Supp) 10 mg RECTAL DAILY PRN PRN Reason: SEVERE CONSITIPATION Dextrose (D50w Vial) 50 ml IV.PUSH UNSCH PRN PRN Reason: PER HYPOGLYCEMIA PROTOCOL Glucagon (Glucagon Inj) 1 mg OTHER PRN PRN PRN Reason: for Hypoglycemia Protocol Heparin Sodium/Dextrose (Heparin/D5w 25,000 U/250 Ml) 25,000 unit in 250 mls @ 0 mls/hr IV.CONT TITRATE PRN; Protocol PRN Reason: Per Protocol Last Titration: 03/28/18 09:11 Dose: 1,000 units/hr, 10 mls/hr Sodium Chloride (Ns Inj) 1,000 mls @ 100 mls/hr IV.CONT .Q10H [place] Last Infusion: 03/28/18 09:10 Dose: 100 mls/hr Insulin Aspart (Novolog Insulin [place]al Sugar Inj) 0 unit SQ ACHS [place]; Protocol Last Admin: 03/28/18 07:37 Dose: 9 unit Lactulose (Lactulose Liq) 30 ml PO DAILY PRN PRN Reason: SEVERE CONSITIPATION Morphine Sulfate (Morphine Inj) 2 mg IV.PUSH Q4H PRN PRN Reason: PAIN 6-10 Ondansetron HCl (Zofran Inj) 4 mg IV.PUSH Q6H PRN PRN Reason: NAUSEA OR VOMITING Senna/Docusate Sodium (Abiola-Colace) 1 tab PO BID [place] Last Admin: 03/28/18 08:51 Dose: Not Given Sennosides (Senokot) 17.2 mg PO Q12H PRN PRN Reason: Moderate Constipation Sodium Chloride (Ns Flush) 2 ml IV.FLUSH UNSCH PRN PRN Reason: FLUSH AFTER USING IV ACCESS Last Admin: 03/28/18 07:37 Dose: 2 ml Allergies Allergy/AdvReac Type Severity Reaction Status Date / Time No Known Allergies Allergy Verified 03/27/18 10:29 Home Medications Medication Instructions Recorded Confirmed Type aspirin [Aspir-81] 325 mg PO DAILY 01/15/18 03/28/18 History atorvastatin [Lipitor] 80 mg PO HS 01/15/18 03/28/18 History hydrocodone-acetaminophen [[place]] 1 tab PO Q6H 01/15/18 03/28/18 History insulin regular human [Humulin R 1 sliding scale dose SUB-Q UD 01/15/18 History Regular U-100 Insuln] isosorbide mononitrate 30 mg PO DAILY 01/15/18 03/28/18 History lidocaine [Lidocaine Pain Relief] 1 patch TOPICAL Q8H 01/15/18 03/28/18 History lisinopril 10 mg PO DAILY 01/15/18 03/28/18 History metoprolol tartrate 25 mg PO DAILY 01/15/18 03/28/18 History ranitidine HCl [Zantac] 150 mg PO BID 01/15/18 03/28/18 History sitagliptin-metformin [Janumet] 1 tab PO DAILY 01/15/18 03/28/18 History tamsulosin [Flomax] 0.4 mg PO HS 01/15/18 03/28/18 History Exam Vital signs: Vital Signs 03/28/18 02:22 03/28/18 03:22 03/28/18 05:13 Temperature 98.6 F Pulse Rate 103 H 98 H 99 H Respiratory Rate 20 20 Blood Pressure 104/84 146/78 H Pulse Oximetry 98 98 99 03/28/18 05:16 03/28/18 06:20 03/28/18 06:21 Temperature Pulse Rate 95 H 92 H Respiratory Rate Blood Pressure 147/81 H 148/77 H Pulse Oximetry 97 03/28/18 07:10 03/28/18 08:59 Temperature Pulse Rate 93 H 91 H Respiratory Rate 18 16 Blood Pressure Pulse Oximetry 96 95 Intake & Output 03/27/18 03/28/18 03/28/18 18:59 06:59 18:59 Intake Total 425 / 425 Output Total 600 / 600 500 / 500 Balance -600 / -600 -75 / -75 Weight 102.7 kg Intake: IV 425 / 425 Heparin/D5W 25,000 U/250 mL 25, 25 / 25 000 unit In 250 ml @ Per Protocol IV.CONT TITRATE PRN Rx #:[id number] NS Inj 1,000 ML @ 100 mls/hr IV 400 / 400 .CONT .Q10H [place] Rx#:[id number] Output: Urine 600 / 600 500 / 500 Narrative: GEN: AAOx3, dyspneic, anxious, overweight HEAD: atraumatic, normocephalic ENT: MMM, PERRL, EOMI SKIN: tinea infection on bilateral LE's, right thigh scar from fem bypass surgery ABD: Soft, non-tender, non-distended, normal bowel sounds HEART: regular rate and rhythm, 1/6 PRASHANT, no gallops or rubs LUNGS: Good air exchange, no wheezing, scattered congestive sounds posteriorly (mild COPD) EXT: 1+ edema to mid-shins, skin changes consistent with poor circulation MSK: atraumatic, normal ROM, normal strength NEURO: Cranial nerves grossly intact, no tremor, no motor deficits, normal speech PSYCH: normal affect, appropriately concerned about his heart Results - Labs CBC & Chem 7: 03/28/18 03:11 03/28/18 03:11 Labs: Laboratory Results - last 24 hr 03/28/18 03/28/18 03/28/18 03:11 03:11 03:11 CBC w Diff Slide review pending WBC 13.2 H RBC 3.81 L Hgb 11.1 L Hct 32.5 L MCV 85.2 MCH 29.2 MCHC 34.3 RDW 13.9 Plt Count 259 MPV 8.9 Neut % (Auto) 87.3 H Lymph % (Auto) 9.2 [place] % (Auto) 1.2 Eos % (Auto) 0.0 Baso % (Auto) 2.3 H Neut # (Auto) 11.5 H Lymph # (Auto) 1.2 [place] # (Auto) 0.2 Eos # (Auto) 0.0 Baso # (Auto) 0.3 H WBC Differential . Diff Scan Auto diff confirmed Differential Comment . Platelet Estimate Normal Platelet Morphology Normal RBC Morphology Normal PT INR APTT Sodium 128 L Potassium 4.5 Chloride 94 L Carbon Dioxide 22.4 Anion Gap 12 BUN 44 H Creatinine 2.30 H Estimated GFR 29 L POC Glucose Random Glucose 636 H* Calcium 8.1 L Total Bilirubin 0.3 AST 86 H ALT 24 Alkaline Phosphatase 108 Troponin I 22.60 H* B-Natriuretic Peptide 832 H Total Protein 6.9 Albumin 2.6 L 03/28/18 03/28/18 05:31 07:16 CBC w Diff WBC RBC Hgb Hct MCV MCH MCHC RDW Plt Count MPV Neut % (Auto) Lymph % (Auto) [place] % (Auto) Eos % (Auto) Baso % (Auto) Neut # (Auto) Lymph # (Auto) [place] # (Auto) Eos # (Auto) Baso # (Auto) WBC Differential Diff Scan Differential Comment Platelet Estimate Platelet Morphology RBC Morphology PT 10.0 INR 1.0 APTT 28.7 Sodium Potassium Chloride Carbon Dioxide Anion Gap BUN Creatinine Estimated GFR POC Glucose 522 H* Random Glucose Calcium Total Bilirubin AST ALT Alkaline Phosphatase Troponin I B-Natriuretic Peptide Total Protein Albumin - Imaging Impressions Chest X-Ray 03/28/18 05:13 CONCLUSION: 1. Mild streaky perihilar opacities which may represent early pulmonary edema. There is no focal consolidation. 2. Apparent minimal effusions. Caprini VTE Risk Assessment Caprini VTE Risk Assessment: Moderate/High Risk (score >= 2) Caprini Risk Assessment Model: Point Value = 1 Point Value = 2 Point Value = 3 Point Value = 5 Age 41-60 Minor surgery BMI > 25 kg/m2 Swollen legs Varicose veins or History of unexplained or recurrent spontaneous Oral contraceptives or hormone replacement Sepsis (< 1 month) Serious lung disease, including pneumonia (< 1 month) Abnormal pulmonary function Acute myocardial infarction Congestive heart failure (< 1 month) History of inflammatory bowel disease Medical patient at bed rest Age 61-74 Arthroscopic surgery Major open surgery (> 45 min) Laparoscopic surgery (> 45 min) Malignancy Confined to bed (> 72 hours) Immobilizing plaster cast Central venous access Age >= 75 History of VTE Family history of VTE Factor V Leiden Prothrombin [id number] Lupus anticoagulant Anticardiolipin antibodies Elevated serum homocysteine Heparin-induced thrombocytopenia Other congenital or acquired thrombophilia Stroke (< 1 month) Elective arthroplasty Hip, pelvis, or leg fracture Acute spinal cord injury (< 1 month) Prophylaxis Regimen: Total Risk Factor Score Risk Level Prophylaxis Regimen 0-1 Low Early ambulation 2 Moderate Order ONE of the following: *Sequential Compression Device (SCD) *Heparin 5000 units SQ BID 3-4 Higher Order ONE of the following medications: *Heparin 5000 units SQ TID *Enoxaparin/Lovenox 40 mg SQ daily (WT < 150 kg, CrCl > 30 mL/min) *Enoxaparin/Lovenox 30 mg SQ daily (WT < 150 kg, CrCl > 10-29 mL/min) *Enoxaparin/Lovenox 30 mg SQ BID (WT < 150 kg, CrCl > 30 mL/min) AND/OR *Sequential Compression Device (SCD) 5 or more Highest Order ONE of the following medications: *Heparin 5000 units SQ TID (Preferred with Epidurals) *Enoxaparin/Lovenox 40 mg SQ daily (WT < 150 kg, CrCl > 30 mL/min) *Enoxaparin/Lovenox 30 mg SQ daily (WT < 150 kg, CrCl > 10-29 mL/min) *Enoxaparin/Lovenox 30 mg SQ BID (WT < 150 kg, CrCl > 30 mL/min) AND *Sequential Compression Device (SCD) Assessment and Plan - Plan STEMI Patient presented overnight with ST elevation on EKG x 2, Troponin @ 22.60, active chest pain, orthopnea Sent from [facility] to [facility], kept NPO for possible heart catheterization Hx of extensive vessel disease, had Fem bypass surgery prior Hx of prior heart catheterization, questionable stent candidacy by history Based on history, his vessel disease may be extensive, since he was told he is "not a good candidate for stents" If heart catheterization reveals extensive disease, will consult cardiothoracic surgery Add nitroglycerin, and repeat troponin level Appreciate cardiology consult COPD Mild exacerbation, not likely a major contributor to his dyspnea Continue steroids and cautious use of nebulizers Type 2 diabetes Out of control currently, likely from lots of steroids over the last 2 weeks Cover with sliding scale insulin, high dose Diabetic diet Tinea Infection Bilateral LE's Anti-fungal cream DVT Prophylaxis Heparin Drip
[2018-03-28] MEDS ORDERED: Pantoprazole Inj 40 MG Vial IV.PUSH ONE (10:15)
[2018-03-28] MEDS: Morphine Inj 4 MG/ML Vial IV.PUSH PRN (19:40)
--- NOTE | 2018-03-28 22:08 | ECG ---
Date Performed: 03/28/2018 Time Performed: 04:41:06 PTAGE: 63 years EKG: SINUS TACHYCARDIA ANTERIOR MYOCARDIAL INFARCTION ABNORMAL ECG PREVIOUS TRACING : 03/28/2018 03.19 Since the previous tracing, no significant change noted DOCTOR: Laney Lee Interpretating Date/Time 03/28/2018 22:06:58
--- NOTE | 2018-03-28 22:09 | ECG ---
Date Performed: 03/28/2018 Time Performed: 03:19:50 PTAGE: 63 years EKG: SINUS TACHYCARDIA ANTEROSEPTAL MYOCARDIAL INFARCTION MODERATE T-WAVE ABNORMALITY ABNORMAL E CG PREVIOUS TRACING : 03/27/2018 10.53 Since the previous tracing, no significant change noted DOCTOR: Laney Lee Interpretating Date/Time 04/06/2018 13:25:04
[2018-03-29] MEDS: Sod Chloride 0.9% Inj 1,000 ML IV.CONT SCH (03:43)
--- NOTE | 2018-03-29 06:36 | P.PNCA ---
Medications and Allergies Active Medications: Active Medications Acetaminophen (Tylenol) 650 mg PO Q4H PRN PRN Reason: Temp > 100.4 Al Hydroxide/Mg Hydroxide (Milk Of Magnesia Liq) 30 ml PO Q12H PRN PRN Reason: Mild Constipation Albuterol (Duoneb Neb (Prn)) 1 ampul NEB Q4HR NEB PRN PRN Reason: SOB/WHEEZING Last Admin: 03/29/18 05:44 Dose: 1 ampul Bisacodyl (Dulcolax Supp) 10 mg RECTAL DAILY PRN PRN Reason: SEVERE CONSITIPATION Dextrose (D50w Vial) 50 ml IV.PUSH UNSCH PRN PRN Reason: PER HYPOGLYCEMIA PROTOCOL Glucagon (Glucagon Inj) 1 mg OTHER PRN PRN PRN Reason: for Hypoglycemia Protocol Heparin Sodium/Dextrose (Heparin/D5w 25,000 U/250 Ml) 25,000 unit in 250 mls @ 0 mls/hr IV.CONT TITRATE PRN; Protocol PRN Reason: Per Protocol Last Titration: 03/29/18 01:30 Dose: 1,300 units/hr, 13 mls/hr Sodium Chloride (Ns Inj) 1,000 mls @ 100 mls/hr IV.CONT .Q10H [place] Last Admin: 03/29/18 03:43 Dose: Not Given Insulin Aspart (Novolog Insulin Correctional Sugar Inj) 0 unit SQ ACHS [place]; Protocol Last Admin: 03/28/18 20:04 Dose: 15 unit Lactulose (Lactulose Liq) 30 ml PO DAILY PRN PRN Reason: SEVERE CONSITIPATION Morphine Sulfate (Morphine Inj) 2 mg IV.PUSH Q4H PRN PRN Reason: PAIN 6-10 Last Admin: 03/28/18 19:40 Dose: 2 mg Nitroglycerin (Nitrostat Sl) 0.4 mg SL Q5M PRN PRN Reason: CHEST PAIN Ondansetron HCl (Zofran Inj) 4 mg IV.PUSH Q6H PRN PRN Reason: NAUSEA OR VOMITING Senna/Docusate Sodium (Abiola-Colace) 1 tab PO BID [place] Last Admin: 03/28/18 20:03 Dose: 1 tab Sennosides (Senokot) 17.2 mg PO Q12H PRN PRN Reason: Moderate Constipation Sodium Chloride (Ns Flush) 2 ml IV.FLUSH UNSCH PRN PRN Reason: FLUSH AFTER USING IV ACCESS Last Admin: 03/28/18 07:37 Dose: 2 ml Allergies Allergy/AdvReac Type Severity Reaction Status Date / Time No Known Allergies Allergy Verified 03/27/18 10:29 Home Medications Medication Instructions Recorded Confirmed Type aspirin [Aspir-81] 325 mg PO DAILY 01/15/18 03/28/18 History atorvastatin [Lipitor] 80 mg PO HS 01/15/18 03/28/18 History hydrocodone-acetaminophen [[place]] 1 tab PO Q6H 01/15/18 03/28/18 History insulin regular human [Humulin R 1 sliding scale dose SUB-Q UD 01/15/18 History Regular U-100 Insuln] isosorbide mononitrate 30 mg PO DAILY 01/15/18 03/28/18 History lidocaine [Lidocaine Pain Relief] 1 patch TOPICAL Q8H 01/15/18 03/28/18 History lisinopril 10 mg PO DAILY 01/15/18 03/28/18 History metoprolol tartrate 25 mg PO DAILY 01/15/18 03/28/18 History ranitidine HCl [Zantac] 150 mg PO BID 01/15/18 03/28/18 History sitagliptin-metformin [Janumet] 1 tab PO DAILY 01/15/18 03/28/18 History tamsulosin [Flomax] 0.4 mg PO HS 01/15/18 03/28/18 History Physical Exam Vital signs: Vital Signs 03/28/18 07:10 03/28/18 08:59 03/28/18 09:00 Temperature 98.4 F Pulse Rate 93 H 91 H 89 Respiratory Rate 18 16 20 Blood Pressure 145/83 H Pulse Oximetry 96 95 98 03/28/18 10:00 03/28/18 11:00 03/28/18 12:00 Temperature 98.6 F Pulse Rate 88 85 86 Respiratory Rate 18 Blood Pressure 139/85 Pulse Oximetry 99 03/28/18 13:00 03/28/18 14:00 03/28/18 15:00 Temperature Pulse Rate 90 88 93 H Respiratory Rate Blood Pressure Pulse Oximetry 03/28/18 16:00 03/28/18 17:00 03/28/18 18:00 Temperature 98.4 F Pulse Rate 92 H 92 H 88 Respiratory Rate 18 Blood Pressure 142/66 H Pulse Oximetry 98 03/28/18 19:00 03/28/18 20:00 03/28/18 21:00 Temperature 98.1 F Pulse Rate 83 81 85 Respiratory Rate 20 Blood Pressure 127/69 Pulse Oximetry 97 03/28/18 22:00 03/28/18 23:00 03/29/18 00:00 Temperature 98.3 F Pulse Rate 86 80 83 Respiratory Rate 20 Blood Pressure 130/73 Pulse Oximetry 96 03/29/18 01:00 03/29/18 02:00 03/29/18 03:00 Temperature Pulse Rate 78 78 81 Respiratory Rate Blood Pressure Pulse Oximetry 03/29/18 04:00 03/29/18 05:00 03/29/18 05:56 Temperature 98.2 F Pulse Rate 86 82 80 Respiratory Rate 18 Blood Pressure 133/75 Pulse Oximetry 95 Intake & Output 03/28/18 03/28/18 03/29/18 06:59 18:59 06:59 Intake Total 1165 / 1165 1240 / 1240 Output Total 600 / 600 1300 / 1300 750 / 750 Balance -600 / -600 -135 / -135 490 / 490 Weight 102.7 kg 103.3 kg Intake: IV 425 / 425 500 / 500 Heparin/D5W 25,000 U/250 mL 25, 25 / 25 000 unit In 250 ml @ Per Protocol IV.CONT TITRATE PRN Rx #:[id number] NS Inj 1,000 ML @ 100 mls/hr IV 400 / 400 500 / 500 .CONT .Q10H [place] Rx#:[id number] Oral 740 / 740 740 / 740 Output: Urine 600 / 600 1300 / 1300 750 / 750 Other: # Bowel Movements 0 Results 03/29/18 07:18 03/29/18 07:18 Cardiac Enzymes 03/28/18 03/28/18 03/28/18 Range/Units 03:11 03:11 10:30 AST 86 H (15-37) U/L Troponin I 22.60 H* Greater than 40.00 H* (0.02-0.05) ng/mL B-Natriuretic Peptide 832 H (0-100) pg/mL Coagulation 03/28/18 03/28/18 03/28/18 Range/Units 03:11 05:31 11:37 PT 10.0 (9.8-11.6) sec APTT 28.7 29.8 (24.3-30.1) sec B-Natriuretic Peptide 832 H (0-100) pg/mL 03/28/18 03/29/18 Range/Units 19:09 01:11 PT (9.8-11.6) sec APTT 28.6 32.2 H (24.3-30.1) sec B-Natriuretic Peptide (0-100) pg/mL CBC 03/28/18 Range/Units 03:11 WBC 13.2 H (4.0-11.0) th/mm3 RBC 3.81 L (4.50-5.90) mil/mm3 Hgb 11.1 L (13.0-17.0) gm/dL Hct 32.5 L (39.0-51.0) % Plt Count 259 (150-450) th/mm3 Neut # (Auto) 11.5 H (1.8-7.7) th/mm3 Lymph # (Auto) 1.2 (1.0-4.8) th/mm3 Glenn # (Auto) 0.2 (0.0-0.9) th/mm3 Eos # (Auto) 0.0 (0.0-0.4) th/mm3 Baso # (Auto) 0.3 H (0.0-0.2) th/mm3 Comprehensive Metabolic Panel 03/28/18 Range/Units 03:11 Sodium 128 L (136-145) meq/L Potassium 4.5 (3.5-5.1) meq/L Chloride 94 L (98-107) meq/L Carbon Dioxide 22.4 (21.0-32.0) meq/L BUN 44 H (7-18) mg/dL Creatinine 2.30 H (0.60-1.30) mg/dL Calcium 8.1 L (8.5-10.1) mg/dL AST 86 H (15-37) U/L ALT 24 (12-78) U/L Alkaline Phosphatase 108 (45-117) U/L Total Protein 6.9 (6.4-8.2) g/dL Albumin 2.6 L (3.4-5.0) g/dL Intake and Output 03/28/18 03/28/18 03/29/18 14:59 22:59 06:59 Intake Total 425 / 425 1240 / 1240 740 / 740 Output Total 500 / 500 800 / 800 750 / 750 Balance -75 / -75 440 / 440 -10 / -10 Intake: IV 425 / 425 500 / 500 Heparin/D5W 25,000 U/250 mL 25, 25 / 25 000 unit In 250 ml @ Per Protocol IV.CONT TITRATE PRN Rx #:[id number] NS Inj 1,000 ML @ 100 mls/hr IV 400 / 400 500 / 500 .CONT .Q10H [place] Rx#:[id number] Oral 740 / 740 740 / 740 Output: Urine 500 / 500 800 / 800 750 / 750 Other: # Bowel Movements 0 Weight 103.3 kg Patient Weight 03/29/18 06:59 Weight 103.3 kg - Imaging and Cardiology Imaging: Impressions Chest X-Ray 03/28/18 05:13 CONCLUSION: 1. Mild streaky perihilar opacities which may represent early pulmonary edema. There is no focal consolidation. 2. Apparent minimal effusions. Assessment and Plan - Plan NSTEMI HTN HLD DM2 Acute renal failure Patient currently volume up and not able to lay completely flat. Also the patient's Cr is downtrending today. Will plan on coronary angiogram likely tommorow
[2018-03-29 07:59] LABS: Baso # (Auto) 0.1 th/mm3 (0.0-0.2); Baso % (Auto) 0.5 % (0.0-2.0); Eos # (Auto) 0.2 th/mm3 (0.0-0.4); Eos % (Auto) 1.4 % (0.0-4.0); Hematocrit 32.9 % (39.0-51.0); Hemoglobin 10.9 gm/dL (13.0-17.0); Lymph # (Auto) 3.3 th/mm3 (1.0-4.8); Lymph % (Auto) 28.7 % (9.0-44.0); Mean Corpuscular HGB Conc 33.2 % (32.0-36.0); Mean Corpuscular Hemoglobin 28.5 pg (27.0-34.0); Mean Corpuscular Volume 85.9 fL (80.0-100.0); Mean Platelet Volume 7.9 fL (7.0-11.0); Mono # (Auto) 0.8 th/mm3 (0.0-0.9); Mono % (Auto) 6.9 % (0.0-8.0); Neut # (Auto) 7.1 th/mm3 (1.8-7.7); Neut % (Auto) 62.5 % (16.0-70.0); Platelet Count 254 th/mm3 (150-450); Red Blood Count 3.83 mil/mm3 (4.50-5.90); Red Cell Distribution Width 14.4 % (11.6-17.2); White Blood Count 11.4 th/mm3 (4.0-11.0)
[2018-03-29 08:13] LABS: Alanine Aminotransferase 32 U/L (12-78); Albumin 2.6 g/dL (3.4-5.0); Anion Gap 10 meq/L (5-15); Aspartate Aminotransferase 85 U/L (15-37); Calcium 8.5 mg/dL (8.5-10.1); Carbon Dioxide 25.4 meq/L (21.0-32.0); Chloride 101 meq/L (98-107); Glomerular Filtration Rate 32 mL/min (>89); Glucose,Random 260 mg/dL (74-106); Potassium 4.3 meq/L (3.5-5.1); Sodium 136 meq/L (136-145)
[2018-03-29 08:18] LABS: Alkaline Phosphatase 97 U/L (45-117); Blood Urea Nitrogen 43 mg/dL (7-18); Total Protein 6.7 g/dL (6.4-8.2)
[2018-03-29] MEDS: Metoprolol Tartrate 25 MG Tablet PO SCH ×2 (09:13→21:09)
[2018-03-29] MEDS: Morphine Inj 4 MG/ML Vial IV.PUSH PRN ×2 (09:13→21:10)
[2018-03-29] MEDS: Insulin NovoLOG Aspart Correctional Sugar Inj SQ SCH ×4 (09:14→21:10)
[2018-03-29] MEDS: Senna/Docusate Sodium 8.6/50 MG Tablet PO SCH ×2 (09:14→21:10)
--- NOTE | 2018-03-29 12:48 | ECHRPT ---
Indication: CHEST PAIN CONCLUSIONS Normal left ventricular size. Wall thickness is normal. The left ventricular systolic function is severely reduced with an estimated ejection fraction less than 20%. The left atrial size is upper limits of normal. Mitral annular calcification is present. [id number] mitral valve regurgitation. The estimated pulmonary arterial pressure is 38 mmHg. A moderate left sided pleural effusion is noted. BP: / HR: Rhythm: MEASUREMENTS (Male / Female) Normal Values Technical Quality: 2D ECHO LV Diastolic Diameter PLAX 5.2 cm 4.2 - 5.9 / 3.9 - 5.3 cm LV Systolic Diameter PLAX 4.8 cm IVS Diastolic Thickness 0.8 cm 0.6 - 1.0 / 0.6 - 0.9 cm LVPW Diastolic Thickness 1.0 cm 0.6 - 1.0 / 0.6 - 0.9 cm LV Relative Wall Thickness 0.4 RV Internal Dim ED PLAX 2.3 cm LA Systolic Diameter LX 4.1 cm 3.0 - 4.0 / 2.7 - 3.8 cm DOPPLER Mitral E Point Velocity 109.0 cm/s Mitral A Point Velocity 87.0 cm/s Mitral E to A Ratio 1.3 TR Peak Velocity 262.0 cm/s TR Peak Gradient 27.5 mmHg Right Atrial Pressure 10.0 mmHg Pulmonary Artery Systolic Pressu 37.5 mmHg Right Ventricular Systolic Press 37.5 mmHg FINDINGS LEFT VENTRICLE Normal left ventricular size. Wall thickness is normal. The left ventricular systolic function is severely reduced with an estimated ejection fraction less than 20%. RIGHT VENTRICLE Normal right ventricular size and systolic function. LEFT ATRIUM The left atrial size is upper limits of normal. RIGHT ATRIUM The right atrial size is normal. ATRIAL SEPTUM Normal atrial septal thickness without atrial level shunting by limited color doppler interrogation. AORTA The aortic root and proximal ascending aorta are normal in size on limited imaging. MITRAL VALVE Mitral annular calcification is present. [id number] mitral valve regurgitation. AORTIC VALVE Trileaflet aortic valve. No aortic valve stenosis or regurgitation. TRICUSPID VALVE The estimated pulmonary arterial pressure is 38 mmHg. PULMONARY VALVE No pulmonary valve regurgitation or stenosis. VESSELS The inferior vena cava is normal in size. PERICARDIUM No pericardial effusion. A moderate left sided pleural effusion is noted. Álvaro Hernandez MD, FACC (Electronically Signed) Final Date:29 March 2018 12:47
--- NOTE | 2018-03-29 14:22 | P.PNIM ---
Subjective Interval history: Patient denies any chest pain currently. Reports continued shortness of breath , on improved from yesterday. Still with significant bilateral lower extremity edema. Physical Exam Vital signs: Vital Signs 03/28/18 15:00 03/28/18 16:00 03/28/18 17:00 Temperature 98.4 F Pulse Rate 93 H 92 H 92 H Respiratory Rate 18 Blood Pressure 142/66 H Pulse Oximetry 98 03/28/18 18:00 03/28/18 19:00 03/28/18 20:00 Temperature 98.1 F Pulse Rate 88 83 81 Respiratory Rate 20 Blood Pressure 127/69 Pulse Oximetry 97 03/28/18 21:00 03/28/18 22:00 03/28/18 23:00 Temperature Pulse Rate 85 86 80 Respiratory Rate Blood Pressure Pulse Oximetry 03/29/18 00:00 03/29/18 01:00 03/29/18 02:00 Temperature 98.3 F Pulse Rate 83 78 78 Respiratory Rate 20 Blood Pressure 130/73 Pulse Oximetry 96 03/29/18 03:00 03/29/18 04:00 03/29/18 05:00 Temperature 98.2 F Pulse Rate 81 86 82 Respiratory Rate 18 Blood Pressure 133/75 Pulse Oximetry 95 03/29/18 05:56 03/29/18 07:00 03/29/18 08:00 Temperature 98.0 F Pulse Rate 80 95 H 90 Respiratory Rate 18 Blood Pressure 160/99 H Pulse Oximetry 100 03/29/18 09:00 03/29/18 10:00 03/29/18 11:00 Temperature Pulse Rate 90 88 86 Respiratory Rate Blood Pressure Pulse Oximetry 03/29/18 12:00 03/29/18 13:00 Temperature 98.0 F Pulse Rate 86 96 H Respiratory Rate 20 Blood Pressure 128/68 Pulse Oximetry 98 Intake & Output 03/28/18 03/29/18 03/29/18 18:59 06:59 18:59 Intake Total 1165 / 1165 1240 / 1240 Output Total 1300 / 1300 750 / 750 Balance -135 / -135 490 / 490 Weight 103.3 kg Intake: IV 425 / 425 500 / 500 Heparin/D5W 25,000 U/250 mL 25, 25 / 25 000 unit In 250 ml @ Per Protocol IV.CONT TITRATE PRN Rx #:[id number] NS Inj 1,000 ML @ 100 mls/hr IV 400 / 400 500 / 500 .CONT .Q10H [place] Rx#:[id number] Oral 740 / 740 740 / 740 Output: Urine 1300 / 1300 750 / 750 Other: # Bowel Movements 0 Narrative: GENERAL: Patient sitting up in bed. Appears moderately short of breath. SKIN: Warm and dry. HEAD: Normocephalic. EYES: No scleral icterus. No injection or drainage. NECK: Supple, trachea midline. Positive JVD. CARDIOVASCULAR: Regular rate and rhythm without murmurs, gallops, or rubs. RESPIRATORY: Breath sounds equal bilaterally. No accessory muscle use. GASTROINTESTINAL: Abdomen soft, non-tender, nondistended. MUSCULOSKELETAL: No cyanosis. +3 woody edema bilateral lower extremities. No broken skin. No erythema. BACK: Nontender without obvious deformity. No CVA tenderness. Results - Labs CBC & Chem 7: 03/29/18 07:18 03/29/18 07:18 Laboratory Results - last 24 hr 03/28/18 03/28/18 03/28/18 17:05 19:09 19:39 WBC RBC Hgb Hct MCV MCH MCHC RDW Plt Count MPV Neut % (Auto) Lymph % (Auto) Stokes % (Auto) Eos % (Auto) Baso % (Auto) Neut # (Auto) Lymph # (Auto) Stokes # (Auto) Eos # (Auto) Baso # (Auto) WBC Differential Differential Comment APTT 28.6 Sodium Potassium Chloride Carbon Dioxide Anion Gap BUN Creatinine Estimated GFR POC Glucose 151 H 272 H Random Glucose Calcium Total Bilirubin AST ALT Alkaline Phosphatase Troponin I Total Protein Albumin 03/29/18 03/29/18 03/29/18 01:11 07:18 07:18 WBC 11.4 H RBC 3.83 L Hgb 10.9 L Hct 32.9 L MCV 85.9 MCH 28.5 MCHC 33.2 RDW 14.4 Plt Count 254 MPV 7.9 Neut % (Auto) 62.5 Lymph % (Auto) 28.7 Stokes % (Auto) 6.9 Eos % (Auto) 1.4 Baso % (Auto) 0.5 Neut # (Auto) 7.1 Lymph # (Auto) 3.3 Stokes # (Auto) 0.8 Eos # (Auto) 0.2 Baso # (Auto) 0.1 WBC Differential . Differential Comment Auto diff final APTT 32.2 H Sodium 136 Potassium 4.3 Chloride 101 Carbon Dioxide 25.4 Anion Gap 10 BUN 43 H Creatinine 2.14 H Estimated GFR 32 L POC Glucose Random Glucose 260 H D Calcium 8.5 Total Bilirubin 0.2 AST 85 H ALT 32 Alkaline Phosphatase 97 Troponin I 36.00 H* Total Protein 6.7 Albumin 2.6 L 03/29/18 03/29/18 03/29/18 07:18 08:16 12:06 WBC RBC Hgb Hct MCV MCH MCHC RDW Plt Count MPV Neut % (Auto) Lymph % (Auto) Stokes % (Auto) Eos % (Auto) Baso % (Auto) Neut # (Auto) Lymph # (Auto) Stokes # (Auto) Eos # (Auto) Baso # (Auto) WBC Differential Differential Comment APTT 35.0 H Sodium Potassium Chloride Carbon Dioxide Anion Gap BUN Creatinine Estimated GFR POC Glucose 312 H 325 H Random Glucose Calcium Total Bilirubin AST ALT Alkaline Phosphatase Troponin I Total Protein Albumin Assessment and Plan - Plan STEMI Patient Patient presented overnight with ST elevation on EKG x 2, Troponin @ 22.60, active chest pain, orthopnea Sent from [facility] to [facility], kept NPO for possible heart catheterization Hx of extensive vessel disease, had Fem bypass surgery prior Hx of prior heart catheterization, questionable stent candidacy by history Based on history, his vessel disease may be extensive, since he was told he is "not a good candidate for stents" If heart catheterization reveals extensive disease, will consult cardiothoracic surgery Add nitroglycerin, and repeat troponin level Appreciate cardiology consult = 03/29. Pulmonary edema, significant bilateral lower extremity edema. We will diurese so the patient can undergo cardiac catheterization tomorrow. Using Afrin. Advised to avoid. COPD Mild exacerbation, not likely a major contributor to his dyspnea Continue steroids and cautious use of nebulizers Type 2 diabetes Out of control currently, likely from lots of steroids over the last 2 weeks Cover with sliding scale insulin, high dose Diabetic diet = 03/29. Hypoglycemic in the 300s. Patient is on cardiac diet. Will switch to cardiac/diabetic diet. Start on one half of home dose of Levemir twice daily. Tinea Infection Bilateral LE's Continue anti-fungal cream DVT Prophylaxis Heparin Drip Discussed Condition With: Patient, nurse
[2018-03-29] MEDS: Tiotropium Bromide 18 MCG/ACT Inhaler INH SCH (17:08)
[2018-03-29] MEDS: Heparin Drip 25,000 UNIT/250 ML BAG IV.CONT PRN (19:45)
[2018-03-29] MEDS: Insulin Detemir Inj 1,000 UNIT/10 ML Vial SQ SCH (21:09)
[2018-03-30 07:33] LABS: Baso # (Auto) 0.1 th/mm3 (0.0-0.2); Baso % (Auto) 1.1 % (0.0-2.0); Eos # (Auto) 0.2 th/mm3 (0.0-0.4); Eos % (Auto) 2.5 % (0.0-4.0); Hematocrit 30.5 % (39.0-51.0); Hemoglobin 10.3 gm/dL (13.0-17.0); Lymph # (Auto) 2.5 th/mm3 (1.0-4.8); Lymph % (Auto) 29.8 % (9.0-44.0); Mean Corpuscular HGB Conc 33.7 % (32.0-36.0); Mean Corpuscular Hemoglobin 28.8 pg (27.0-34.0); Mean Corpuscular Volume 85.6 fL (80.0-100.0); Mean Platelet Volume 7.8 fL (7.0-11.0); Mono # (Auto) 0.6 th/mm3 (0.0-0.9); Mono % (Auto) 6.6 % (0.0-8.0); Neut # (Auto) 5.1 th/mm3 (1.8-7.7); Platelet Count 230 th/mm3 (150-450); Red Blood Count 3.56 mil/mm3 (4.50-5.90); Red Cell Distribution Width 14.7 % (11.6-17.2); White Blood Count 8.5 th/mm3 (4.0-11.0)
[2018-03-30 07:55] LABS: Albumin 2.5 g/dL (3.4-5.0); Calcium 8.5 mg/dL (8.5-10.1); Carbon Dioxide 27.9 meq/L (21.0-32.0); Magnesium 2.3 mg/dL (1.5-2.5); Phosphorus 3.8 mg/dL (2.5-4.9); Potassium 4.1 meq/L (3.5-5.1)
[2018-03-30] MEDS: Tiotropium Bromide 18 MCG/ACT Inhaler INH SCH (08:24)
[2018-03-30] MEDS: Insulin Detemir Inj 1,000 UNIT/10 ML Vial SQ SCH ×2 (08:25→20:52)
[2018-03-30] MEDS: Metoprolol Tartrate 25 MG Tablet PO SCH ×2 (08:25→20:52)
[2018-03-30] MEDS: Senna/Docusate Sodium 8.6/50 MG Tablet PO SCH ×2 (08:25→20:53)
[2018-03-30] MEDS: Insulin NovoLOG Aspart Correctional Sugar Inj SQ SCH ×4 (08:25→20:53)
[2018-03-30] MEDS: Morphine Inj 4 MG/ML Vial IV.PUSH PRN ×2 (08:38→18:33)
[2018-03-30] MEDS: Heparin Drip 25,000 UNIT/250 ML BAG IV.CONT PRN (13:14)
[2018-03-30] MEDS ORDERED: Heparin/NS PF Inj 1,000 ML ONE (14:09)
[2018-03-30] MEDS ORDERED: Heparin 10,000 UNITS/10 ML Vial (for IV use) ONE (14:11)
[2018-03-30] MEDS ORDERED: fentaNYL Citrate Inj 100 MCG/2 ML Ampul ONE (14:11)
[2018-03-30] MEDS ORDERED: Iohexol 350 MG/ML 50 ML Vial (for Cath Lab) IVCONTRAST ONE (16:29)
[2018-03-30] MEDS ORDERED: Sod Chloride 0.9% Inj 1,000 ML IV.SIG SCH (18:00)
--- NOTE | 2018-03-30 22:31 | P.PNIM ---
Subjective Interval history: patient says he is feeling oriented today. Denies any chest pain. Reports shortness of breath improving. Physical Exam Vital signs: Vital Signs 03/29/18 23:00 03/30/18 00:00 03/30/18 01:00 Temperature 98.0 F Pulse Rate 89 83 82 Respiratory Rate 17 Blood Pressure 139/85 Pulse Oximetry 100 03/30/18 02:00 03/30/18 03:00 03/30/18 03:53 Temperature Pulse Rate 84 84 85 Respiratory Rate 18 Blood Pressure Pulse Oximetry 03/30/18 04:00 03/30/18 05:00 03/30/18 06:00 Temperature 97.3 F L Pulse Rate 89 90 86 Respiratory Rate 18 Blood Pressure 146/83 H Pulse Oximetry 98 03/30/18 07:00 03/30/18 08:00 03/30/18 09:00 Temperature 98.3 F Pulse Rate 85 75 74 Respiratory Rate 18 Blood Pressure 151/90 H Pulse Oximetry 100 03/30/18 10:00 03/30/18 11:00 03/30/18 12:00 Temperature 97.8 F 97.8 F Pulse Rate 79 74 86 Respiratory Rate 18 18 Blood Pressure 140/75 140/75 Pulse Oximetry 100 100 03/30/18 13:00 03/30/18 14:00 03/30/18 16:00 Temperature 98.0 F Pulse Rate 82 80 78 Respiratory Rate 18 Blood Pressure 141/75 H Pulse Oximetry 99 03/30/18 17:00 03/30/18 18:00 03/30/18 19:00 Temperature Pulse Rate 86 93 H 91 H Respiratory Rate Blood Pressure Pulse Oximetry 03/30/18 19:33 03/30/18 20:00 03/30/18 21:00 Temperature 97.8 F Pulse Rate 86 93 H 90 Respiratory Rate 18 17 Blood Pressure 159/79 H Pulse Oximetry 97 96 03/30/18 22:00 Temperature Pulse Rate 82 Respiratory Rate Blood Pressure Pulse Oximetry Intake & Output 03/30/18 03/30/18 03/31/18 06:59 18:59 06:59 Intake Total 290 / 290 1450 / 1450 Output Total 1425 / 1425 1200 / 1200 Balance -1135 / -1135 250 / 250 Weight 100.6 kg Intake: IV 50 / 50 100 / 100 Heparin/D5W 25,000 U/250 mL 25, 50 / 50 000 unit In 250 ml @ Per Protocol IV.CONT TITRATE PRN Rx #:[id number] Oral 240 / 240 1350 / 1350 Output: Urine 1425 / 1425 1200 / 1200 Other: Date of Last Bowel Movement 03/27/18 03/30/18 03/30/18 # Bowel Movements 1 Narrative: GENERAL: Patient lying in bed. Appearsless short of breath than yesterday. SKIN: Warm and dry. HEAD: Normocephalic. EYES: No scleral icterus. No injection or drainage. NECK: Supple, trachea midline. Positive JVD. CARDIOVASCULAR: Regular rate and rhythm without murmurs, gallops, or rubs. RESPIRATORY: Breath sounds equal bilaterally. No accessory muscle use. GASTROINTESTINAL: Abdomen soft, non-tender, nondistended. MUSCULOSKELETAL: No cyanosis. +3 woody edema bilateral lower extremities. No broken skin. No erythema. BACK: Nontender without obvious deformity. No CVA tenderness. Results - Labs CBC & Chem 7: 03/30/18 07:13 03/30/18 07:13 Laboratory Results - last 24 hr 03/29/18 03/30/18 03/30/18 23:19 07:13 07:13 WBC 8.5 RBC 3.56 L Hgb 10.3 L Hct 30.5 L MCV 85.6 MCH 28.8 MCHC 33.7 RDW 14.7 Plt Count 230 MPV 7.8 Neut % (Auto) 60.0 Lymph % (Auto) 29.8 [place] % (Auto) 6.6 Eos % (Auto) 2.5 Baso % (Auto) 1.1 Neut # (Auto) 5.1 Lymph # (Auto) 2.5 [place] # (Auto) 0.6 Eos # (Auto) 0.2 Baso # (Auto) 0.1 WBC Differential . Differential Comment Auto diff final APTT 32.4 H Sodium 138 Potassium 4.1 Chloride 104 Carbon Dioxide 27.9 Anion Gap 6 BUN 44 H Creatinine 1.99 H Estimated GFR 34 L POC Glucose Random Glucose 225 H Calcium 8.5 Phosphorus 3.8 Magnesium 2.3 Albumin 2.5 L 03/30/18 03/30/18 03/30/18 07:13 07:46 11:15 WBC RBC Hgb Hct MCV MCH MCHC RDW Plt Count MPV Neut % (Auto) Lymph % (Auto) [place] % (Auto) Eos % (Auto) Baso % (Auto) Neut # (Auto) Lymph # (Auto) [place] # (Auto) Eos # (Auto) Baso # (Auto) WBC Differential Differential Comment APTT 37.3 H Sodium Potassium Chloride Carbon Dioxide Anion Gap BUN Creatinine Estimated GFR POC Glucose 232 H 245 H Random Glucose Calcium Phosphorus Magnesium Albumin 03/30/18 03/30/18 15:55 20:39 WBC RBC Hgb Hct MCV MCH MCHC RDW Plt Count MPV Neut % (Auto) Lymph % (Auto) [place] % (Auto) Eos % (Auto) Baso % (Auto) Neut # (Auto) Lymph # (Auto) [place] # (Auto) Eos # (Auto) Baso # (Auto) WBC Differential Differential Comment APTT Sodium Potassium Chloride Carbon Dioxide Anion Gap BUN Creatinine Estimated GFR POC Glucose 233 H 323 H Random Glucose Calcium Phosphorus Magnesium Albumin Microbiology 03/30/18 10:06 Stool Stool Occult Blood ([place]) - Final Hemoccult negative Assessment and Plan - Plan STEMI Patient Patient presented overnight with ST elevation on EKG x 2, Troponin @ 22.60, active chest pain, orthopnea Sent from [place] [facility] to [facility], kept NPO for possible heart catheterization Hx of extensive vessel disease, had Fem bypass surgery prior Hx of prior heart catheterization, questionable stent candidacy by history Based on history, his vessel disease may be extensive, since he was told he is "not a good candidate for stents" If heart catheterization reveals extensive disease, will consult cardiothoracic surgery Add nitroglycerin, and repeat troponin level Appreciate cardiology consult = 03/29. Pulmonary edema, significant bilateral lower extremity edema. We will diurese so the patient can undergo cardiac catheterization tomorrow. Using Afrin. Advised to avoid. =continue diuresis. Catheterization as per cardiology. May need CT surgery consultation follow-up cardiology report. COPD Mild exacerbation, not likely a major contributor to his dyspnea Continue steroids and cautious use of nebulizers Type 2 diabetes Out of control currently, likely from lots of steroids over the last 2 weeks Cover with sliding scale insulin, high dose Diabetic diet = 03/29. Hypoglycemic in the 300s. Patient is on cardiac diet. Will switch to cardiac/diabetic diet. Start on one half of home dose of Levemir twice daily. =03/30. Hyperglycemia 300s likely secondary to regular diet being started after procedure. We'll switch to diabetic diet. Tinea Infection Bilateral LE's Continue anti-fungal cream DVT Prophylaxis Heparin Drip Discharge Planning: pending cardiology clearance.
[2018-03-31 07:28] LABS: Baso # (Auto) 0.1 th/mm3 (0.0-0.2); Baso % (Auto) 0.6 % (0.0-2.0); Eos # (Auto) 0.2 th/mm3 (0.0-0.4); Eos % (Auto) 2.6 % (0.0-4.0); Hematocrit 29.8 % (39.0-51.0); Hemoglobin 9.7 gm/dL (13.0-17.0); Lymph # (Auto) 2.3 th/mm3 (1.0-4.8); Lymph % (Auto) 28.2 % (9.0-44.0); Mean Corpuscular HGB Conc 32.6 % (32.0-36.0); Mean Corpuscular Hemoglobin 28.3 pg (27.0-34.0); Mean Corpuscular Volume 86.9 fL (80.0-100.0); Mean Platelet Volume 7.7 fL (7.0-11.0); Mono # (Auto) 0.7 th/mm3 (0.0-0.9); Mono % (Auto) 8.5 % (0.0-8.0); Neut # (Auto) 4.8 th/mm3 (1.8-7.7); Neut % (Auto) 60.1 % (16.0-70.0); Platelet Count 227 th/mm3 (150-450); Red Blood Count 3.43 mil/mm3 (4.50-5.90); Red Cell Distribution Width 14.6 % (11.6-17.2)
[2018-03-31 08:03] LABS: Albumin 2.5 g/dL (3.4-5.0); Calcium 8.2 mg/dL (8.5-10.1); Carbon Dioxide 28.8 meq/L (21.0-32.0); Magnesium 2.2 mg/dL (1.5-2.5); Phosphorus 3.8 mg/dL (2.5-4.9)
[2018-03-31] MEDS: Morphine Inj 4 MG/ML Vial IV.PUSH PRN ×2 (08:54→20:50)
[2018-03-31] MEDS: Insulin Detemir Inj 1,000 UNIT/10 ML Vial SQ SCH ×2 (09:32→20:47)
[2018-03-31] MEDS: Metoprolol Tartrate 25 MG Tablet PO SCH ×2 (09:33→20:50)
[2018-03-31] MEDS: Tiotropium Bromide 18 MCG/ACT Inhaler INH SCH (09:34)
[2018-03-31] MEDS: Senna/Docusate Sodium 8.6/50 MG Tablet PO SCH ×2 (09:34→20:50)
[2018-03-31] MEDS: Insulin NovoLOG Aspart Correctional Sugar Inj SQ SCH ×4 (09:56→20:50)
--- NOTE | 2018-03-31 11:54 | P.PNIM ---
Subjective Interval history: Patient says he is feeling well better today. Shortness of breath improving. He does report very mild chest pain has continued throughout admission, however he did not yesterday. Physical Exam Vital signs: Vital Signs 03/30/18 12:00 03/30/18 13:00 03/30/18 14:00 Temperature 97.8 F Pulse Rate 86 82 80 Respiratory Rate 18 Blood Pressure 140/75 Pulse Oximetry 100 03/30/18 16:00 03/30/18 17:00 03/30/18 18:00 Temperature 98.0 F Pulse Rate 78 86 93 H Respiratory Rate 18 Blood Pressure 141/75 H Pulse Oximetry 99 03/30/18 19:00 03/30/18 19:33 03/30/18 20:00 Temperature 97.8 F Pulse Rate 91 H 86 93 H Respiratory Rate 18 17 Blood Pressure 159/79 H Pulse Oximetry 97 96 03/30/18 21:00 03/30/18 22:00 03/30/18 23:00 Temperature Pulse Rate 90 82 79 Respiratory Rate Blood Pressure Pulse Oximetry 03/31/18 00:00 03/31/18 00:57 03/31/18 01:00 Temperature 98.0 F Pulse Rate 81 91 H 84 Respiratory Rate 17 18 Blood Pressure 142/85 H Pulse Oximetry 97 03/31/18 02:00 03/31/18 03:00 03/31/18 04:00 Temperature 98.1 F Pulse Rate 85 86 87 Respiratory Rate 16 Blood Pressure 140/65 Pulse Oximetry 98 03/31/18 05:00 03/31/18 06:00 03/31/18 07:00 Temperature Pulse Rate 82 77 78 Respiratory Rate Blood Pressure Pulse Oximetry 03/31/18 07:19 03/31/18 07:44 03/31/18 08:00 Temperature 97.6 F 97.6 F Pulse Rate 82 80 96 H Respiratory Rate 18 20 20 Blood Pressure 161/91 H 161/91 H Pulse Oximetry 96 100 100 03/31/18 09:00 03/31/18 10:00 03/31/18 11:00 Temperature 97.5 F L Pulse Rate 94 H 90 87 Respiratory Rate 20 Blood Pressure 163/92 H Pulse Oximetry 99 Intake & Output 03/30/18 03/31/18 03/31/18 18:59 06:59 18:59 Intake Total 1450 / 1450 1530 / 1530 Output Total 1200 / 1200 825 / 825 Balance 250 / 250 705 / 705 Weight 99.8 kg Intake: IV 100 / 100 1050 / 1050 Heparin/D5W 25,000 U/250 mL 25, 50 / 50 000 unit In 250 ml @ Per Protocol IV.CONT TITRATE PRN Rx #:[id number] NS Inj 1,000 ML @ 150 mls/hr IV 1000 / 1000 .SIG .Q6H40M [facility] Rx#:[id number] Oral 1350 / 1350 480 / 480 Output: Urine 1200 / 1200 825 / 825 Other: Date of Last Bowel Movement 03/30/18 03/30/18 03/30/18 # Bowel Movements 1 Narrative: GENERAL: Patient lying in bed. Breathing comfortably today. SKIN: Warm and dry. HEAD: Normocephalic. EYES: No scleral icterus. No injection or drainage. NECK: Supple, trachea midline. Positive JVD. CARDIOVASCULAR: Regular rate and rhythm without murmurs, gallops, or rubs. RESPIRATORY: Breath sounds equal bilaterally. No accessory muscle use. GASTROINTESTINAL: Abdomen soft, non-tender, nondistended. MUSCULOSKELETAL: No cyanosis. +2 edema bilateral lower extremities, improving. No erythema. BACK: Nontender without obvious deformity. No CVA tenderness. Results - Labs CBC & Chem 7: 03/31/18 07:10 03/31/18 07:10 Laboratory Results - last 24 hr 03/30/18 03/30/18 03/31/18 15:55 20:39 07:10 WBC 8.0 RBC 3.43 L Hgb 9.7 L Hct 29.8 L MCV 86.9 MCH 28.3 MCHC 32.6 RDW 14.6 Plt Count 227 MPV 7.7 Neut % (Auto) 60.1 Lymph % (Auto) 28.2 Randall % (Auto) 8.5 H Eos % (Auto) 2.6 Baso % (Auto) 0.6 Neut # (Auto) 4.8 Lymph # (Auto) 2.3 [place] # (Auto) 0.7 Eos # (Auto) 0.2 Baso # (Auto) 0.1 WBC Differential . Differential Comment Auto diff final APTT Sodium Potassium Chloride Carbon Dioxide Anion Gap BUN Creatinine Estimated GFR POC Glucose 233 H 323 H Random Glucose Calcium Phosphorus Magnesium Albumin 03/31/18 03/31/18 03/31/18 07:10 07:10 07:40 WBC RBC Hgb Hct MCV MCH MCHC RDW Plt Count MPV Neut % (Auto) Lymph % (Auto) [place] % (Auto) Eos % (Auto) Baso % (Auto) Neut # (Auto) Lymph # (Auto) [place] # (Auto) Eos # (Auto) Baso # (Auto) WBC Differential Differential Comment APTT 41.8 H Sodium 140 Potassium 4.0 Chloride 104 Carbon Dioxide 28.8 Anion Gap 7 BUN 37 H Creatinine 1.78 H Estimated GFR 39 L POC Glucose 147 H Random Glucose 129 H Calcium 8.2 L Phosphorus 3.8 Magnesium 2.2 Albumin 2.5 L 03/31/18 10:47 WBC RBC Hgb Hct MCV MCH MCHC RDW Plt Count MPV Neut % (Auto) Lymph % (Auto) [place] % (Auto) Eos % (Auto) Baso % (Auto) Neut # (Auto) Lymph # (Auto) [place] # (Auto) Eos # (Auto) Baso # (Auto) WBC Differential Differential Comment APTT Sodium Potassium Chloride Carbon Dioxide Anion Gap BUN Creatinine Estimated GFR POC Glucose 231 H Random Glucose Calcium Phosphorus Magnesium Albumin Microbiology 03/30/18 10:06 Stool Stool Occult Blood (DAYANA) - Final Hemoccult negative Assessment and Plan - Plan STEMI Patient //CHF exacerbation on admission Patient presented overnight with ST elevation on EKG x 2, Troponin @ 22.60, active chest pain, orthopnea Sent from [place] [facility] to [facility], kept NPO for possible heart catheterization Hx of extensive vessel disease, had Fem bypass surgery prior Hx of prior heart catheterization, questionable stent candidacy by history Based on history, his vessel disease may be extensive, since he was told he is "not a good candidate for stents" If heart catheterization reveals extensive disease, will consult cardiothoracic surgery Add nitroglycerin, and repeat troponin level Appreciate cardiology consult = 03/29. Pulmonary edema, significant bilateral lower extremity edema. We will diurese so the patient can undergo cardiac catheterization tomorrow. Using Afrin. Advised to avoid. =continue diuresis. Catheterization as per cardiology. May need CT surgery consultation follow-up cardiology report. = 03/31. Discussed with cardiology today. Multivessel CAD. Place consult for cardiothoracic surgery. Edema, shortness of breath improving. Continue diuresis //Acute kidney injury on admission Creatinine 2.3, likely acute on chronic cardiorenal syndrome. Continues to improve with diuresis COPD Mild exacerbation, not likely a major contributor to his dyspnea Continue steroids and cautious use of nebulizers Type 2 diabetes Out of control currently, likely from lots of steroids over the last 2 weeks Cover with sliding scale insulin, high dose Diabetic diet = 03/29. Hypoglycemic in the 300s. Patient is on cardiac diet. Will switch to cardiac/diabetic diet. Start on one half of home dose of Levemir twice daily. =03/30. Hyperglycemia 300s likely secondary to regular diet being started after procedure. We'll switch to diabetic diet. Tinea Infection Bilateral LE's Continue anti-fungal cream DVT Prophylaxis Heparin Drip Discharge Planning: pending cardiology clearance.
--- NOTE | 2018-03-31 13:53 | P.PNCV ---
- Note Subjective/Hospital Course: pt seen and evaluated , full consult to follow sts data discussed with pt RISK SCORES About the STS Risk Calculator Procedure: CAB Only Risk of Mortality: 4.28% Morbidity or Mortality: 38.338% Long Length of Stay: 19.714% Short Length of Stay: 17.644% Permanent Stroke: 1.79% Prolonged Ventilation: 24.852% DSW Infection: 2.524% Renal Failure: 14.456% Reoperation: 11.929% this does not take into account targets uncontrolled DM noncompliance Objective: Vital Signs - 24 hr 03/30/18 14:00 03/30/18 16:00 03/30/18 17:00 Temperature 98.0 F Pulse Rate 80 78 86 Respiratory Rate 18 Blood Pressure 141/75 H Pulse Oximetry 99 03/30/18 18:00 03/30/18 19:00 03/30/18 19:33 Temperature Pulse Rate 93 H 91 H 86 Respiratory Rate 18 Blood Pressure Pulse Oximetry 97 03/30/18 20:00 03/30/18 21:00 03/30/18 22:00 Temperature 97.8 F Pulse Rate 93 H 90 82 Respiratory Rate 17 Blood Pressure 159/79 H Pulse Oximetry 96 03/30/18 23:00 03/31/18 00:00 03/31/18 00:57 Temperature 98.0 F Pulse Rate 79 81 91 H Respiratory Rate 17 18 Blood Pressure 142/85 H Pulse Oximetry 97 03/31/18 01:00 03/31/18 02:00 03/31/18 03:00 Temperature Pulse Rate 84 85 86 Respiratory Rate Blood Pressure Pulse Oximetry 03/31/18 04:00 03/31/18 05:00 03/31/18 06:00 Temperature 98.1 F Pulse Rate 87 82 77 Respiratory Rate 16 Blood Pressure 140/65 Pulse Oximetry 98 03/31/18 07:00 03/31/18 07:19 03/31/18 07:44 Temperature 97.6 F Pulse Rate 78 82 80 Respiratory Rate 18 20 Blood Pressure 161/91 H Pulse Oximetry 96 100 03/31/18 08:00 03/31/18 09:00 03/31/18 10:00 Temperature 97.6 F Pulse Rate 96 H 94 H 90 Respiratory Rate 20 Blood Pressure 161/91 H Pulse Oximetry 100 03/31/18 11:00 03/31/18 12:00 03/31/18 13:00 Temperature 97.5 F L 97.5 F L Pulse Rate 87 90 85 Respiratory Rate 20 20 Blood Pressure 163/92 H 163/92 H Pulse Oximetry 99 99 Labs: Laboratory Results - last 12 hr 03/31/18 03/31/18 03/31/18 07:10 07:10 07:10 WBC 8.0 RBC 3.43 L Hgb 9.7 L Hct 29.8 L MCV 86.9 MCH 28.3 MCHC 32.6 RDW 14.6 Plt Count 227 MPV 7.7 Neut % (Auto) 60.1 Lymph % (Auto) 28.2 [place] % (Auto) 8.5 H Eos % (Auto) 2.6 Baso % (Auto) 0.6 Neut # (Auto) 4.8 Lymph # (Auto) 2.3 [place] # (Auto) 0.7 Eos # (Auto) 0.2 Baso # (Auto) 0.1 WBC Differential . Differential Comment Auto diff final APTT 41.8 H Sodium 140 Potassium 4.0 Chloride 104 Carbon Dioxide 28.8 Anion Gap 7 BUN 37 H Creatinine 1.78 H Estimated GFR 39 L POC Glucose Random Glucose 129 H Calcium 8.2 L Phosphorus 3.8 Magnesium 2.2 Albumin 2.5 L 03/31/18 03/31/18 03/31/18 07:40 10:47 13:29 WBC RBC Hgb Hct MCV MCH MCHC RDW Plt Count MPV Neut % (Auto) Lymph % (Auto) [place] % (Auto) Eos % (Auto) Baso % (Auto) Neut # (Auto) Lymph # (Auto) [place] # (Auto) Eos # (Auto) Baso # (Auto) WBC Differential Differential Comment APTT 38.9 H Sodium Potassium Chloride Carbon Dioxide Anion Gap BUN Creatinine Estimated GFR POC Glucose 147 H 231 H Random Glucose Calcium Phosphorus Magnesium Albumin Result Diagrams: 03/31/18 07:10 03/31/18 07:10 This patient is non-compliant with meds and presented with a significant NC. His EF is now ~20% with acute systolic and diastolic heart failure. He c/o dyspnea with minimal exertion. His distal targets are very small and CABG will be technically difficult. I will repeat his ECHO on Thursday and re-evaluate for possible CABG next week.
[2018-03-31] MEDS: Heparin Drip 25,000 UNIT/250 ML BAG IV.CONT PRN (13:57)
--- NOTE | 2018-03-31 19:17 | P.PNCA ---
Subjective Interval history: Follow up for Dr. Wan No chest pain SOB with activity Medications and Allergies Active Medications: Active Medications Acetaminophen (Tylenol) 650 mg PO Q4H PRN PRN Reason: Temp > 100.4 Al Hydroxide/Mg Hydroxide (Milk Of Magnesia Liq) 30 ml PO Q12H PRN PRN Reason: Mild Constipation Albuterol (Duoneb Neb (Prn)) 1 ampul NEB Q4HR NEB PRN PRN Reason: SOB/WHEEZING Last Admin: 03/31/18 18:00 Dose: 1 ampul Albuterol (Albuterol Neb (Prn)) 2.5 mg NEB QID NEB PRN PRN Reason: SHORTNESS OF BREATH Atorvastatin Calcium (Lipitor) 80 mg PO HS [facility] Last Admin: 03/30/18 20:52 Dose: 80 mg Bisacodyl (Dulcolax Supp) 10 mg RECTAL DAILY PRN PRN Reason: SEVERE CONSITIPATION Dextrose (D50w Vial) 50 ml IV.PUSH UNSCH PRN PRN Reason: PER HYPOGLYCEMIA PROTOCOL Furosemide (Lasix Inj) 40 mg IV.PUSH BID@0900,1800 [facility] Last Admin: 03/31/18 17:28 Dose: 40 mg Glucagon (Glucagon Inj) 1 mg OTHER PRN PRN PRN Reason: for Hypoglycemia Protocol Heparin Sodium/Dextrose (Heparin/D5w 25,000 U/250 Ml) 25,000 unit in 250 mls @ 0 mls/hr IV.CONT TITRATE PRN; Protocol PRN Reason: Per Protocol Last Admin: 03/31/18 13:57 Dose: 1,800 units/hr, 18 mls/hr Insulin Aspart (Novolog Insulin Correctional Sugar Inj) 0 unit SQ ACHS [facility]; Protocol Last Admin: 03/31/18 17:28 Dose: 20 unit Insulin Detemir (Levemir Inj) 10 unit SQ BID [facility] Last Admin: 03/31/18 09:32 Dose: 10 unit Lactulose (Lactulose Liq) 30 ml PO DAILY PRN PRN Reason: SEVERE CONSITIPATION Metoprolol Tartrate (Lopressor) 25 mg PO BID [facility] Last Admin: 03/31/18 09:33 Dose: 25 mg Morphine Sulfate (Morphine Inj) 2 mg IV.PUSH Q4H PRN PRN Reason: PAIN 6-10 Last Admin: 03/31/18 08:54 Dose: 2 mg Nitroglycerin (Nitrostat Sl) 0.4 mg SL Q5M PRN PRN Reason: CHEST PAIN Ondansetron HCl (Zofran Inj) 4 mg IV.PUSH Q6H PRN PRN Reason: NAUSEA OR VOMITING Senna/Docusate Sodium (Abiola-Colace) 1 tab PO BID [facility] Last Admin: 03/31/18 09:34 Dose: Not Given Sennosides (Senokot) 17.2 mg PO Q12H PRN PRN Reason: Moderate Constipation Sodium Chloride (Ns Flush) 2 ml IV.FLUSH UNSCH PRN PRN Reason: FLUSH AFTER USING IV ACCESS Last Admin: 03/31/18 09:34 Dose: 2 ml Tiotropium [place] (Spiriva 18 Mcg Inh) 18 mcg INH DAILY [facility] Last Admin: 03/31/18 09:34 Dose: 18 mcg Allergies Allergy/AdvReac Type Severity Reaction Status Date / Time No Known Allergies Allergy Verified 03/27/18 10:29 Home Medications Medication Instructions Recorded Confirmed Type aspirin [Aspir-81] 325 mg PO DAILY 01/15/18 03/28/18 History atorvastatin [Lipitor] 80 mg PO HS 01/15/18 03/28/18 History hydrocodone-acetaminophen [[place]] 1 tab PO Q6H 01/15/18 03/28/18 History insulin regular human [Humulin R 1 sliding scale dose SUB-Q UD 01/15/18 History Regular U-100 Insuln] isosorbide mononitrate 30 mg PO DAILY 01/15/18 03/28/18 History lidocaine [Lidocaine Pain Relief] 1 patch TOPICAL Q8H 01/15/18 03/28/18 History lisinopril 10 mg PO DAILY 01/15/18 03/28/18 History metoprolol tartrate 25 mg PO DAILY 01/15/18 03/28/18 History ranitidine HCl [Zantac] 150 mg PO BID 01/15/18 03/28/18 History sitagliptin-metformin [Janumet] 1 tab PO DAILY 01/15/18 03/28/18 History tamsulosin [Flomax] 0.4 mg PO HS 01/15/18 03/28/18 History Physical Exam Vital signs: Vital Signs 03/30/18 19:33 03/30/18 20:00 03/30/18 21:00 Temperature 97.8 F Pulse Rate 86 93 H 90 Respiratory Rate 18 17 Blood Pressure 159/79 H Pulse Oximetry 97 96 03/30/18 22:00 03/30/18 23:00 03/31/18 00:00 Temperature 98.0 F Pulse Rate 82 79 81 Respiratory Rate 17 Blood Pressure 142/85 H Pulse Oximetry 97 03/31/18 00:57 03/31/18 01:00 03/31/18 02:00 Temperature Pulse Rate 91 H 84 85 Respiratory Rate 18 Blood Pressure Pulse Oximetry 03/31/18 03:00 03/31/18 04:00 03/31/18 05:00 Temperature 98.1 F Pulse Rate 86 87 82 Respiratory Rate 16 Blood Pressure 140/65 Pulse Oximetry 98 03/31/18 06:00 03/31/18 07:00 03/31/18 07:19 Temperature Pulse Rate 77 78 82 Respiratory Rate 18 Blood Pressure Pulse Oximetry 96 03/31/18 07:44 03/31/18 08:00 03/31/18 09:00 Temperature 97.6 F 97.6 F Pulse Rate 80 96 H 94 H Respiratory Rate 20 20 Blood Pressure 161/91 H 161/91 H Pulse Oximetry 100 100 03/31/18 10:00 03/31/18 11:00 03/31/18 12:00 Temperature 97.5 F L 97.5 F L Pulse Rate 90 87 90 Respiratory Rate 20 20 Blood Pressure 163/92 H 163/92 H Pulse Oximetry 99 99 03/31/18 13:00 03/31/18 14:00 03/31/18 15:00 Temperature Pulse Rate 85 83 65 Respiratory Rate Blood Pressure Pulse Oximetry 03/31/18 16:00 03/31/18 17:00 03/31/18 18:00 Temperature 97.9 F Pulse Rate 86 90 88 Respiratory Rate 20 Blood Pressure 164/91 H Pulse Oximetry 97 03/31/18 18:01 Temperature Pulse Rate 89 Respiratory Rate 16 Blood Pressure Pulse Oximetry Intake & Output 03/31/18 03/31/18 04/01/18 06:59 18:59 06:59 Intake Total 1530 / 1530 920 / 920 Output Total 825 / 825 1100 / 1100 Balance 705 / 705 -180 / -180 Weight 99.8 kg Intake: IV 1050 / 1050 200 / 200 Heparin/D5W 25,000 U/250 mL 25, 50 / 50 200 / 200 000 unit In 250 ml @ Per Protocol IV.CONT TITRATE PRN Rx #:[id number] Inj 1,000 ML @ 150 mls/hr IV 1000 / 1000 .SIG .Q6H40M [facility] Rx#:[id number] Oral 480 / 480 720 / 720 Output: Urine 825 / 825 1100 / 1100 Other: Date of Last Bowel Movement 03/30/18 03/30/18 Narrative: GENERAL: Patient lying in bed. Breathing comfortably today. SKIN: Warm and dry. HEAD: Normocephalic. EYES: No scleral icterus. No injection or drainage. NECK: Supple, trachea midline. Positive JVD. CARDIOVASCULAR: Regular rate and rhythm without murmurs, gallops, or rubs. RESPIRATORY: Breath sounds equal bilaterally. No accessory muscle use. Decreased breath sounds bilaterally GASTROINTESTINAL: Abdomen soft, non-tender, nondistended. MUSCULOSKELETAL: No cyanosis. +2 edema bilateral lower extremities, improving. No erythema. Right femoral with no hematoma, distal pulses intact BACK: Nontender without obvious deformity. No CVA tenderness. Results 03/31/18 07:10 03/31/18 07:10 Coagulation 03/29/18 03/30/18 03/31/18 Range/Units 23:19 07:13 07:10 APTT 32.4 H 37.3 H 41.8 H (24.3-30.1) sec 03/31/18 Range/Units 13:29 APTT 38.9 H (24.3-30.1) sec CBC 03/30/18 03/31/18 Range/Units 07:13 07:10 WBC 8.5 8.0 (4.0-11.0) th/mm3 RBC 3.56 L 3.43 L (4.50-5.90) mil/mm3 Hgb 10.3 L 9.7 L (13.0-17.0) gm/dL Hct 30.5 L 29.8 L (39.0-51.0) % Plt Count 230 227 (150-450) th/mm3 Neut # (Auto) 5.1 4.8 (1.8-7.7) th/mm3 Lymph # (Auto) 2.5 2.3 (1.0-4.8) th/mm3 [place] # (Auto) 0.6 0.7 (0.0-0.9) th/mm3 Eos # (Auto) 0.2 0.2 (0.0-0.4) th/mm3 Baso # (Auto) 0.1 0.1 (0.0-0.2) th/mm3 Comprehensive Metabolic Panel 03/30/18 03/31/18 Range/Units 07:13 07:10 Sodium 138 140 (136-145) meq/L Potassium 4.1 4.0 (3.5-5.1) meq/L Chloride 104 104 (98-107) meq/L Carbon Dioxide 27.9 28.8 (21.0-32.0) meq/L BUN 44 H 37 H (7-18) mg/dL Creatinine 1.99 H 1.78 H (0.60-1.30) mg/dL Calcium 8.5 8.2 L (8.5-10.1) mg/dL Albumin 2.5 L 2.5 L (3.4-5.0) g/dL Intake and Output 03/31/18 03/31/18 03/31/18 06:59 14:59 22:59 Intake Total 1530 / 1530 200 / 200 720 / 720 Output Total 825 / 825 1100 / 1100 Balance 705 / 705 200 / 200 -380 / -380 Intake: IV 1050 / 1050 200 / 200 Heparin/D5W 25,000 U/250 mL 25, 50 / 50 200 / 200 000 unit In 250 ml @ Per Protocol IV.CONT TITRATE PRN Rx #:[id number] Inj 1,000 ML @ 150 mls/hr IV 1000 / 1000 .SIG .Q6H40M [facility] Rx#:[id number] Oral 480 / 480 720 / 720 Output: Urine 825 / 825 1100 / 1100 Other: Date of Last Bowel Movement 03/30/18 03/30/18 03/30/18 Weight 99.8 kg Assessment and Plan - Assessment (1) NSTEMI (non-ST elevated myocardial infarction) Code(s): I21.4 - Non-ST elevation (NSTEMI) myocardial infarction Status: Acute (2) SOB (shortness of breath) Code(s): R06.02 - Shortness of breath Status: Acute (3) Edema Code(s): R60.9 - Edema, unspecified Status: Acute (4) CHF (congestive heart failure), NYHA class IV Code(s): I50.9 - Heart failure, unspecified Status: Acute (5) Acute exacerbation of CHF (congestive heart failure) Code(s): I50.9 - Heart failure, unspecified Status: Acute (6) Hyperglycemia Code(s): R73.9 - Hyperglycemia, unspecified Status: Acute (7) Chronic kidney disease Code(s): N18.9 - Chronic kidney disease, unspecified Status: Acute - Plan 1) NSTEMI MVCAD CT surgery consulted, evaluating for possible CABG Due to ischemia and MVCAD, con't on heparin drip 2) ICM EF 20% Continue diuresis 3) Uncontrolled DM 4) Non-compliance (5) Acute exacerbation of CHF (congestive heart failure) Qualifiers: Heart failure type: unspecified Qualified Code(s): I50.9 - Heart failure, unspecified (7) Chronic kidney disease Qualifiers: Chronic kidney disease stage: unspecified stage Qualified Code(s): N18.9 - Chronic kidney disease, unspecified
[2018-04-01] MEDS: Heparin Drip 25,000 UNIT/250 ML BAG IV.CONT PRN ×2 (03:05→16:13)
[2018-04-01 04:01] LABS: Albumin 2.4 g/dL (3.4-5.0); Calcium 8.3 mg/dL (8.5-10.1); Carbon Dioxide 28.7 meq/L (21.0-32.0); Magnesium 2.3 mg/dL (1.5-2.5)
--- NOTE | 2018-04-01 07:15 | MB ---
cc: Estela Hernandez MD DATE: 03/31/2018 HISTORY OF PRESENT ILLNESS: The patient has been in and out of the hospital over the past couple of months 4 times. He has been in the ER for the fifth time in the last 2 weeks complaining of marked dyspnea, worsening with exertion and also some intermittent chest discomfort. On his last admission, he had a troponin that was very mildly elevated. He was treated for some heart failure, which was thought to be associated with his severe COPD. He was sent home with oxygen. He was readmitted on the with significant shortness of breath and lower extremity edema. There were some ST changes on his first 2 EKGs. His troponin elevated greater than 40. Patient underwent an echocardiogram previously on his last admission that had an EF of 40%. On this admission, his ejection fraction was less than 20% with some mild to moderate mitral valve regurgitation. The patient has a history of insulin-dependent diabetes and has been somewhat noncompliant. In the past, he has had a HbA1c of 14. His last HbA1c was 11. He states he does take his medication, but not on a regular basis. Apparently, he is also supposed to be on Plavix, which he takes once in a while. He does live alone, has no close family. He does have friends nearby. He underwent cardiac catheterization with multivessel disease showing mid distal LAD 99%, the diagonal 99, the circumflex 100, the OM 70%, the RCA 70%. We were consulted to evaluate for coronary artery bypass grafting. The patient's risk factors include age, coronary artery disease, peripheral arterial disease, diabetes mellitus, hypertension, noncompliance. PAST MEDICAL HISTORY: Insulin-dependent diabetes uncontrolled, chronic back and neck pain, peripheral arterial disease, chronic kidney disease, COPD, congestive heart failure, recent pulmonary edema, chronic hypoxemia requiring home oxygen, normocytic anemia. PAST SURGICAL HISTORY: Includes some type of peripheral vascular surgery on the right leg [address] Phillips at [facility] and status post cardiac catheterization. ALLERGIES: PATIENT HAS NO KNOWN ALLERGIES. HOME MEDICATIONS: 1. Aspirin. 2. Atorvastatin. 3. Zithromax. 4. Plavix. 5. Lasix. 6. [place]. 7. Insulin sliding scale. 8. Imdur. 9. Lidocaine patch. 10. Lisinopril. 11. Metoprolol. 12. Nicotine patch. 13. Prednisone taper dose. 14. Lyrica 15. Zantac. 16. Janumet. 17. Flomax. 18. Atrovent. FAMILY HISTORY: Mother at age 62 from an [place]. Father when he was a child. SOCIAL HISTORY: Positive for tobacco abuse, smoked for 30 years, then went to an e-cigarette which he states he has quit on this past Thursday. He quit smoking approximately 3 years ago. REVIEW OF SYSTEMS: As above in the initial H and P. Other 12 systems unremarkable. PHYSICAL EXAMINATION: VITAL SIGNS: Blood pressure 160/90, heart rate of 80. He is on O2 at 2 liters. GENERAL: Awake, alert, in no acute distress. HEENT: Head is normocephalic, atraumatic. Pupils equal and reactive. Oral mucosa pink, moist. He has slight JVD. HEART: Heart sounds S1, S2. Regular rate and rhythm. Soft systolic murmur. LUNGS: Diminished in the left lower base with few basal crackles and some expiratory wheezing. ABDOMEN: Obese, soft, nontender. No organomegaly. EXTREMITIES: Reveal +1 edema with chronic venous stasis. No open wounds were noticed. LABORATORY DATA: His lab work shows hemoglobin 9.7, hematocrit 29, white cell count 8.0, platelet count of 227. Sodium 138, potassium 4.1, BUN of 44, creatinine 1.19. His glucose on admission was 522, now is improved to 231. He is now also Levemir. Troponin again peaked greater than 40. TSH is pending. INR 1. RADIOLOGICAL EXAMS: Chest x-ray showed some evidence of pulmonary edema on the . IMPRESSION: Again, this is a 63-year-old male with multiple coronary risk factors including uncontrolled diabetes mellitus, peripheral arterial disease, noncompliance, STS risk score mortality of 4.28 with morbidity and mortality of 38. PLAN: At this time, the patient has high risk factors for coronary disease. In the meantime, we will check pulmonary function testing and also repeat his 2-D echocardiogram on Thursday to evaluate for candidacy for coronary bypassing. Further planning as per Dr. Estela Hernandez. In the meantime, would maximize CHF control, continue his diuretics and also stricter blood sugar control. Dictated by NGHIA Lynn I reviewed this patient's clinical information and personally examined him on with the [employer]. He has small distal targets and just had a significant PR. His risk for CABG is high secondary to his poor LV function, recent PR, brittle diabetes, and overall non-compliance. I will review his PFTs as well and check an ECHO on 04/05/18. Will re-assess for CABG at that time. Estela MD DENISE Whipple/jourdan , 03:39 PM , 03:52 PM FAIZAN
[2018-04-01] MEDS: Metoprolol Tartrate 25 MG Tablet PO SCH ×2 (08:29→20:46)
[2018-04-01] MEDS: Tiotropium Bromide 18 MCG/ACT Inhaler INH SCH (08:29)
[2018-04-01] MEDS: Senna/Docusate Sodium 8.6/50 MG Tablet PO SCH ×2 (08:32→20:47)
[2018-04-01] MEDS: Insulin Detemir Inj 1,000 UNIT/10 ML Vial SQ SCH ×2 (08:42→20:56)
[2018-04-01] MEDS: Insulin NovoLOG Aspart Correctional Sugar Inj SQ SCH ×4 (08:42→20:56)
--- NOTE | 2018-04-01 10:19 | P.PN ---
Subjective Interval history: This is a pleasant 63 y/o Male with CAD, PAD, DM II, Hypertension, COPD, seen on multiple opportunities in ER due to dyspnea, found with elevated Troponin level 22.6, associated ST changes. 04/01: Seen in his bedroom discussed with nurse, Cardiothoracic surgery awaiting to re assess the case after Echocardiogram and probable will perform CABG next week. No nausea, vomit or diarrhea. Physical Exam Vital signs: Vital Signs 03/31/18 11:00 03/31/18 12:00 03/31/18 13:00 Temperature 97.5 F L 97.5 F L Pulse Rate 87 90 85 Respiratory Rate 20 20 Blood Pressure 163/92 H 163/92 H Pulse Oximetry 99 99 03/31/18 14:00 03/31/18 15:00 03/31/18 16:00 Temperature 97.9 F Pulse Rate 83 65 86 Respiratory Rate 20 Blood Pressure 164/91 H Pulse Oximetry 97 03/31/18 17:00 03/31/18 18:00 03/31/18 18:01 Temperature Pulse Rate 90 88 89 Respiratory Rate 16 Blood Pressure Pulse Oximetry 03/31/18 19:00 03/31/18 20:00 03/31/18 20:58 Temperature 97.8 F Pulse Rate 90 90 Respiratory Rate 16 16 Blood Pressure 157/78 H Pulse Oximetry 98 03/31/18 21:00 03/31/18 22:00 03/31/18 23:00 Temperature Pulse Rate 98 H 80 78 Respiratory Rate Blood Pressure Pulse Oximetry 03/31/18 23:38 04/01/18 00:00 04/01/18 01:00 Temperature 97.9 F Pulse Rate 95 H 76 80 Respiratory Rate 16 Blood Pressure 149/83 H Pulse Oximetry 96 04/01/18 01:26 04/01/18 02:00 04/01/18 03:00 Temperature Pulse Rate 82 88 80 Respiratory Rate 15 Blood Pressure Pulse Oximetry 04/01/18 04:00 04/01/18 05:00 04/01/18 06:00 Temperature 98.1 F Pulse Rate 89 83 80 Respiratory Rate 16 Blood Pressure 141/71 H Pulse Oximetry 96 04/01/18 09:19 Temperature Pulse Rate 86 Respiratory Rate 16 Blood Pressure Pulse Oximetry Intake & Output 03/31/18 04/01/18 04/01/18 18:59 06:59 18:59 Intake Total 920 / 920 470 / 470 Output Total 1100 / 1100 450 / 450 Balance -180 / -180 20 / 20 Weight 100 kg Intake: IV 200 / 200 230 / 230 Heparin/D5W 25,000 U/250 mL 25, 200 / 200 230 / 230 000 unit In 250 ml @ Per Protocol IV.CONT TITRATE PRN Rx #:[id number] Oral 720 / 720 240 / 240 Output: Urine 1100 / 1100 450 / 450 Other: Date of Last Bowel Movement 03/30/18 03/31/18 Narrative: GENERAL: Obese patient in No acute distress. SKIN: Warm and dry. HEAD: Normocephalic. EYES: No scleral icterus. No injection or drainage. NECK: Supple, trachea midline. Positive JVD. CARDIOVASCULAR: Regular rate and rhythm without murmurs, gallops, or rubs. RESPIRATORY: Breath sounds equal bilaterally. No accessory muscle use. GASTROINTESTINAL: Abdomen soft, non-tender, nondistended. MUSCULOSKELETAL: No cyanosis. +2 edema bilateral lower extremities, improving. No erythema. BACK: Nontender without obvious deformity. No CVA tenderness. Results - Labs CBC & Chem 7: 03/31/18 07:10 04/01/18 03:32 Laboratory Results - last 24 hr 03/31/18 03/31/18 03/31/18 07:10 10:47 13:29 APTT 38.9 H Sodium Potassium Chloride Carbon Dioxide Anion Gap BUN Creatinine Estimated GFR POC Glucose 231 H Random Glucose Calcium Phosphorus Magnesium Albumin TSH 2.480 03/31/18 03/31/18 03/31/18 16:00 20:44 20:57 APTT 41.7 H Sodium Potassium Chloride Carbon Dioxide Anion Gap BUN Creatinine Estimated GFR POC Glucose 329 H 115 H Random Glucose Calcium Phosphorus Magnesium Albumin TSH 04/01/18 04/01/18 04/01/18 03:32 03:32 08:37 APTT 47.4 H Sodium 141 Potassium 4.0 Chloride 103 Carbon Dioxide 28.7 Anion Gap 9 BUN 38 H Creatinine 1.92 H Estimated GFR 36 L POC Glucose 312 H Random Glucose 158 H Calcium 8.3 L Phosphorus 4.0 Magnesium 2.3 Albumin 2.4 L TSH - Imaging Chest X-Ray 03/28/18 05:13 CONCLUSION: 1. Mild streaky perihilar opacities which may represent early pulmonary edema. There is no focal consolidation. 2. Apparent minimal effusions. Assessment and Plan - Plan 1. STEMI/CHF exacerbation on admission, Sent from [place] ER to [facility], Status post Cardiac Catheterization on 03/29 developed Pulmonary Edema significant bilateral lower extremity edema, received diuresis, went for for cardiac cath, found with Multivessel CAD. Place consult for cardiothoracic surgery. Edema, shortness of breath improving. Continue diuresis, Cardiothoracic surgery NOTES: This patient is non-compliant with meds and presented with a significant NV. His EF is now ~20% with acute systolic and diastolic heart failure. He c/o dyspnea with minimal exertion. His distal targets are very small and CABG will be technically difficult. I will repeat his ECHO on Thursday and re-evaluate for possible CABG next week. 2. ALISHA on CKD III on admission Creatinine 2.3 now 1.92 now at baseline. 3. COPD with mild exacerbation, on Steroids, Bronchodilators, Mucolytic and incentive spirometry 4. DM II, to continue sliding scale high dose due to steroids. 5. Tinea infection Bilateral lower extremities, continue fungal cream. DVT Prophylaxis Heparin Drip Code Status: Full code. Discussed Condition With: Patient and nurse. Discharge Planning: pending cardiology clearance.
[2018-04-01] MEDS: Morphine Inj 4 MG/ML Vial IV.PUSH PRN (12:36)
[2018-04-01] MEDS: guaiFENesin/Dextromethorphan 200 MG/20 MG 10 ML UDC PO PRN (16:13)
[2018-04-01] MEDS: Morphine Sulfate Inj 2 MG/ML Vial IV.PUSH PRN (20:45)
[2018-04-02] MEDS: Heparin Drip 25,000 UNIT/250 ML BAG IV.CONT PRN ×2 (08:48→22:35)
[2018-04-02] MEDS: Insulin NovoLOG Aspart Correctional Sugar Inj SQ SCH ×4 (08:55→22:22)
[2018-04-02] MEDS: Senna/Docusate Sodium 8.6/50 MG Tablet PO SCH ×2 (08:56→22:26)
[2018-04-02] MEDS: Insulin Detemir Inj 1,000 UNIT/10 ML Vial SQ SCH ×2 (08:56→22:23)
[2018-04-02] MEDS: guaiFENesin/Dextromethorphan 200 MG/20 MG 10 ML UDC PO PRN (08:56)
[2018-04-02] MEDS: Tiotropium Bromide 18 MCG/ACT Inhaler INH SCH (08:56)
[2018-04-02] MEDS: Metoprolol Tartrate 50 MG Tablet PO SCH ×2 (09:02→22:26)
--- NOTE | 2018-04-02 10:49 | P.PNCV ---
- Note Subjective/Hospital Course: 63/ male who has been in and out of the hospital over the past couple of months 4 times. He has been in the ER for the fifth time in the last 2 weeks complaining of marked dyspnea, worsening with exertion and also some intermittent chest discomfort. On his last admission, he had a troponin that was very mildly elevated. He was treated for some heart failure, which was thought to be associated with his severe COPD. He was sent home with oxygen. He was readmitted on the with significant shortness of breath and lower extremity edema. There were some ST changes on his first 2 EKGs. His troponin elevated greater than 40. Patient underwent an echocardiogram previously on his last admission that had an EF of 40%. On this admission, his ejection fraction was less than 20% with some mild to moderate mitral valve regurgitation. The patient has a history of insulin-dependent diabetes and has been somewhat noncompliant. In the past, he has had a HbA1c of 14. His last HbA1c was 11. He states he does take his medication, but not on a regular basis. Apparently, he is also supposed to be on Plavix, which he takes once in a while. He does live alone, has no close family. He does have friends nearby. He underwent cardiac catheterization with multivessel disease showing mid distal LAD 99%, the diagonal 99, the circumflex 100, the OM 70%, the RCA 70%. We were consulted to evaluate for coronary artery bypass grafting. The patient' s risk factors include age, coronary artery disease, peripheral arterial disease , diabetes mellitus, hypertension, noncompliance. PAST MEDICAL HISTORY: Insulin-dependent diabetes uncontrolled, chronic back and neck pain, peripheral arterial disease, chronic kidney disease, COPD, congestive heart failure, recent pulmonary edema, chronic hypoxemia requiring home oxygen, normocytic anemia. 04/02 PFT: Spirometry shows FVC of 1.0 predicted 3.7, FEV1 of 0.8 predicted 3.0, FEV1/ FVC ratio 84% predicted 80%. remains on , await repeat echo on Thursday / remains high risk for surgical candidate Objective: Vital Signs - 24 hr 04/01/18 11:00 04/01/18 12:00 04/01/18 13:00 Temperature 98.1 F Pulse Rate 82 89 84 Respiratory Rate 18 Blood Pressure 124/68 Pulse Oximetry 04/01/18 14:00 04/01/18 14:48 04/01/18 15:00 Temperature Pulse Rate 84 83 85 Respiratory Rate 16 Blood Pressure Pulse Oximetry 04/01/18 16:00 04/01/18 17:00 04/01/18 18:00 Temperature 98.2 F Pulse Rate 88 100 H 84 Respiratory Rate 18 Blood Pressure 145/87 H Pulse Oximetry 04/01/18 19:00 04/01/18 20:00 04/01/18 20:38 Temperature 98.1 F Pulse Rate 84 92 H Respiratory Rate 18 7 L Blood Pressure 133/75 Pulse Oximetry 96 04/01/18 21:00 04/01/18 21:03 04/01/18 21:20 Temperature Pulse Rate 86 Respiratory Rate 18 16 Blood Pressure Pulse Oximetry 04/01/18 22:00 04/01/18 23:00 04/02/18 00:00 Temperature 98.2 F Pulse Rate 84 79 84 Respiratory Rate 18 Blood Pressure 126/64 Pulse Oximetry 04/02/18 01:00 04/02/18 01:28 04/02/18 01:34 Temperature Pulse Rate 78 80 Respiratory Rate 18 Blood Pressure Pulse Oximetry 96 04/02/18 02:00 04/02/18 03:00 04/02/18 04:00 Temperature 98.4 F Pulse Rate 80 86 83 Respiratory Rate 18 Blood Pressure 143/65 H Pulse Oximetry 04/02/18 05:00 04/02/18 06:00 04/02/18 07:00 Temperature Pulse Rate 83 84 89 Respiratory Rate Blood Pressure Pulse Oximetry 04/02/18 08:00 04/02/18 09:42 Temperature 97.7 F Pulse Rate 82 86 Respiratory Rate 18 20 Blood Pressure 149/84 H Pulse Oximetry 98 99 GENERAL: A&O x 3 SKIN: Warm and dry. chronic venous stasis lower ext, also has some evidence of tinea corporis on both lower ex HEAD: Normocephalic. EYES: No scleral icterus. No injection or drainage. NECK: Supple, trachea midline. No JVD or lymphadenopathy. CARDIOVASCULAR: Regular rate and rhythm without murmurs, gallops, or rubs. RESPIRATORY: Breath sounds equal bilaterally. No accessory muscle use. insp exp wheeze GASTROINTESTINAL: Abdomen soft, non-tender, nondistended. MUSCULOSKELETAL: No cyanosis, or edema. BACK: Nontender without obvious deformity. No CVA tenderness. Labs: Laboratory Results - last 12 hr 04/02/18 04/02/18 07:30 07:57 APTT 53.5 H POC Glucose 179 H Result Diagrams: 03/31/18 07:10 04/01/18 03:32 - Plan (1) CAD (coronary artery disease) Plan: ASA, statin await repeat ECHO FEV1 0.8 ( Poor) (2) DM2 (diabetes mellitus, type 2) Plan: poor home control, some improvement with blood sugars during hospitalization
[2018-04-02] MEDS: Morphine Sulfate Inj 2 MG/ML Vial IV.PUSH PRN (15:35)
--- NOTE | 2018-04-02 17:30 | P.PN ---
Subjective Interval history: This is a pleasant 63 y/o Male with CAD, PAD, DM II, Hypertension, COPD, seen on multiple opportunities in ER due to dyspnea, found with elevated Troponin level 22.6, associated ST changes. 04/01: Seen in his bedroom discussed with nurse, Cardiothoracic surgery awaiting to re assess the case after Echocardiogram and probable will perform CABG next week. 04/02: stable in his bedroom, no nausea, vomit or diarrhea. no changes to anterior assessment. Physical Exam Vital signs: Vital Signs 04/01/18 18:00 04/01/18 19:00 04/01/18 20:00 Temperature 98.1 F Pulse Rate 84 84 92 H Respiratory Rate 18 Blood Pressure 133/75 Pulse Oximetry 96 04/01/18 20:38 04/01/18 21:00 04/01/18 21:03 Temperature Pulse Rate 86 Respiratory Rate 7 L 18 Blood Pressure Pulse Oximetry 04/01/18 21:20 04/01/18 22:00 04/01/18 23:00 Temperature Pulse Rate 84 79 Respiratory Rate 16 Blood Pressure Pulse Oximetry 04/02/18 00:00 04/02/18 01:00 04/02/18 01:28 Temperature 98.2 F Pulse Rate 84 78 80 Respiratory Rate 18 18 Blood Pressure 126/64 Pulse Oximetry 04/02/18 01:34 04/02/18 02:00 04/02/18 03:00 Temperature Pulse Rate 80 86 Respiratory Rate Blood Pressure Pulse Oximetry 96 04/02/18 04:00 04/02/18 05:00 04/02/18 06:00 Temperature 98.4 F Pulse Rate 83 83 84 Respiratory Rate 18 Blood Pressure 143/65 H Pulse Oximetry 04/02/18 07:00 04/02/18 08:00 04/02/18 09:00 Temperature 97.7 F Pulse Rate 89 80 92 H Respiratory Rate 18 Blood Pressure 149/84 H Pulse Oximetry 98 04/02/18 09:42 04/02/18 10:00 04/02/18 12:00 Temperature 97.6 F Pulse Rate 86 90 78 Respiratory Rate 20 18 Blood Pressure 138/83 Pulse Oximetry 99 98 04/02/18 13:00 04/02/18 14:00 04/02/18 14:47 Temperature Pulse Rate 70 76 80 Respiratory Rate 22 Blood Pressure Pulse Oximetry Intake & Output 04/01/18 04/02/18 04/02/18 18:59 06:59 18:59 Intake Total 1210 / 1210 809 / 809 Output Total 1050 / 1050 850 / 850 Balance 160 / 160 -41 / -41 Weight 99.1 kg Intake: IV 250 / 250 189 / 189 Heparin/D5W 25,000 U/250 mL 25, 250 / 250 189 / 189 000 unit In 250 ml @ Per Protocol IV.CONT TITRATE PRN Rx #:[id number] Oral 960 / 960 620 / 620 Output: Urine 1050 / 1050 850 / 850 Other: # Voids 4 Date of Last Bowel Movement 04/01/18 04/01/18 04/01/18 # Bowel Movements 1 0 Narrative: GENERAL: Obese patient in No acute distress. SKIN: Warm and dry. HEAD: Normocephalic. EYES: No scleral icterus. No injection or drainage. NECK: Supple, trachea midline. Positive JVD. CARDIOVASCULAR: Regular rate and rhythm without murmurs, gallops, or rubs. RESPIRATORY: Breath sounds equal bilaterally. No accessory muscle use. GASTROINTESTINAL: Abdomen soft, non-tender, nondistended. MUSCULOSKELETAL: No cyanosis. +2 edema bilateral lower extremities, improving. No erythema. BACK: Nontender without obvious deformity. No CVA tenderness. Results - Labs CBC & Chem 7: 03/31/18 07:10 04/01/18 03:32 Laboratory Results - last 24 hr 04/01/18 04/01/18 04/02/18 18:13 20:54 07:30 APTT 53.5 H POC Glucose 231 H 164 H 04/02/18 04/02/18 04/02/18 07:57 12:07 16:56 APTT POC Glucose 179 H 324 H 132 H - Imaging Chest X-Ray 03/28/18 05:13 CONCLUSION: 1. Mild streaky perihilar opacities which may represent early pulmonary edema. There is no focal consolidation. 2. Apparent minimal effusions. Assessment and Plan - Plan 1. STEMI/CHF exacerbation on admission, Sent from [place] ER to [facility], Status post Cardiac Catheterization on 03/29 developed Pulmonary Edema significant bilateral lower extremity edema, received diuresis, went for for cardiac cath, found with Multivessel CAD. Place consult for cardiothoracic surgery. Edema, shortness of breath improving. Continue diuresis, Cardiothoracic surgery NOTES: This patient is non-compliant with meds and presented with a significant IN. His EF is now ~20% with acute systolic and diastolic heart failure. He c/o dyspnea with minimal exertion. His distal targets are very small and CABG will be technically difficult. I will repeat his ECHO on Thursday and re-evaluate for possible CABG next week. 2. ALISHA on CKD III on admission Creatinine 2.3 now 1.92 now at baseline. 3. COPD with mild exacerbation, on Steroids, Bronchodilators, Mucolytic and incentive spirometry 4. DM II, to continue sliding scale high dose insulin, adjusted Levemir to 12 units BID. 5. Tinea infection Bilateral lower extremities, continue fungal cream. DVT Prophylaxis Heparin Drip Code Status: Full code. Discussed Condition With: Patient and Nurse Miss Alexander Discharge Planning: pending cardiology clearance.
[2018-04-03] MEDS: Insulin Detemir Inj 1,000 UNIT/10 ML Vial SQ SCH ×2 (08:49→20:15)
[2018-04-03] MEDS: Insulin NovoLOG Aspart Correctional Sugar Inj SQ SCH ×4 (08:50→20:15)
[2018-04-03] MEDS: Metoprolol Tartrate 50 MG Tablet PO SCH ×2 (08:50→20:14)
[2018-04-03] MEDS: Senna/Docusate Sodium 8.6/50 MG Tablet PO SCH ×2 (08:50→20:14)
--- NOTE | 2018-04-03 09:34 | P.PN ---
Subjective Interval history: This is a pleasant 63 y/o Male with CAD, PAD, DM II, Hypertension, COPD, seen on multiple opportunities in ER due to dyspnea, found with elevated Troponin level 22.6, associated ST changes. 04/01: Seen in his bedroom discussed with nurse, Cardiothoracic surgery awaiting to re assess the case after Echocardiogram and probable will perform CABG next week. 04/02: no changes to anterior assessment. 04/03: Seen in his bedroom, in the presence of nurse, no nausea, vomit or diarrhea. Physical Exam Vital signs: Vital Signs 04/02/18 09:42 04/02/18 10:00 04/02/18 12:00 Temperature 97.6 F Pulse Rate 86 90 78 Respiratory Rate 20 18 Blood Pressure 138/83 Pulse Oximetry 99 98 04/02/18 13:00 04/02/18 14:00 04/02/18 14:47 Temperature Pulse Rate 70 76 80 Respiratory Rate 22 Blood Pressure Pulse Oximetry 04/02/18 15:00 04/02/18 16:00 04/02/18 17:00 Temperature 98.6 F Pulse Rate 82 85 96 H Respiratory Rate 16 Blood Pressure 151/82 H Pulse Oximetry 96 04/02/18 18:00 04/02/18 19:39 04/02/18 20:00 Temperature 97.9 F Pulse Rate 89 91 H 95 H Respiratory Rate 20 18 Blood Pressure 165/84 H Pulse Oximetry 98 95 04/02/18 23:05 04/03/18 00:00 04/03/18 01:00 Temperature Pulse Rate 80 80 Respiratory Rate 18 18 Blood Pressure Pulse Oximetry 04/03/18 01:30 04/03/18 02:00 04/03/18 03:00 Temperature Pulse Rate 80 76 80 Respiratory Rate 18 Blood Pressure Pulse Oximetry 99 04/03/18 03:48 04/03/18 04:00 04/03/18 05:00 Temperature 98.2 F Pulse Rate 79 76 78 Respiratory Rate 18 Blood Pressure 143/77 H Pulse Oximetry 98 04/03/18 06:00 Temperature Pulse Rate 76 Respiratory Rate Blood Pressure Pulse Oximetry Intake & Output 04/02/18 04/03/18 04/03/18 18:59 06:59 18:59 Intake Total 1201 / 1201 730 / 730 Output Total 1250 / 1250 1125 / 1125 Balance -49 / -49 -395 / -395 Weight 98.3 kg Intake: IV 250 / 250 Heparin/D5W 25,000 U/250 mL 25, 250 / 250 000 unit In 250 ml @ Per Protocol IV.CONT TITRATE PRN Rx #:[id number] Oral 1140 / 1140 480 / 480 Output: Urine 1250 / 1250 1125 / 1125 Other: Date of Last Bowel Movement 04/01/18 04/01/18 04/01/18 # Bowel Movements 0 Narrative: GENERAL: Obese patient in No acute distress. SKIN: Warm and dry. HEAD: Normocephalic. EYES: No scleral icterus. No injection or drainage. NECK: Supple, trachea midline. Positive JVD. CARDIOVASCULAR: Regular rate and rhythm without murmurs, gallops, or rubs. RESPIRATORY: Breath sounds equal bilaterally. No accessory muscle use. GASTROINTESTINAL: Abdomen soft, non-tender, nondistended. MUSCULOSKELETAL: No cyanosis. +2 edema bilateral lower extremities, improving. No erythema. BACK: Nontender without obvious deformity. No CVA tenderness. Results - Labs CBC & Chem 7: 03/31/18 07:10 04/01/18 03:32 Laboratory Results - last 24 hr 04/02/18 04/02/18 04/02/18 12:07 16:56 22:19 APTT POC Glucose 324 H 132 H 315 H 04/03/18 04/03/18 07:28 07:29 APTT 54.9 H POC Glucose 132 H - Imaging Chest X-Ray 03/28/18 05:13 CONCLUSION: 1. Mild streaky perihilar opacities which may represent early pulmonary edema. There is no focal consolidation. 2. Apparent minimal effusions. - Procedures Cardiac Cath. Assessment and Plan - Plan 1. STEMI/CHF exacerbation on admission, Sent from [place] ER to [facility], Status post Cardiac Catheterization on 03/29 developed Pulmonary Edema significant bilateral lower extremity edema, received diuresis, went for for cardiac cath, found with Multivessel CAD. Place consult for cardiothoracic surgery. Edema, shortness of breath improving. Continue diuresis, Cardiothoracic surgery NOTES: This patient is non-compliant with meds and presented with a significant CT. His EF is now ~20% with acute systolic and diastolic heart failure. He c/o dyspnea with minimal exertion. His distal targets are very small and CABG will be technically difficult. I will repeat his ECHO on Thursday and re-evaluate for possible CABG next week. 2. ALISHA on CKD III on admission Creatinine 2.3 now 1.92 now at baseline. 3. COPD with mild exacerbation, Improved, Bronchodilators, Mucolytic and incentive spirometry 4. DM II, to continue sliding scale high dose insulin, adjusted Levemir to 15 Units BID. 5. Tinea infection Bilateral lower extremities, continue fungal cream. DVT Prophylaxis Heparin Drip Code Status: Full code. Discussed Condition With: Patient and Nurse. Discharge Planning: pending cardiology clearance.
[2018-04-03] MEDS: Tiotropium Bromide 18 MCG/ACT Inhaler INH SCH (09:42)
[2018-04-03] MEDS: Morphine Sulfate Inj 2 MG/ML Vial IV.PUSH PRN ×2 (09:42→20:02)
[2018-04-03] MEDS: guaiFENesin/Dextromethorphan 200 MG/20 MG 10 ML UDC PO PRN ×2 (10:09→17:09)
[2018-04-03] MEDS: Heparin Drip 25,000 UNIT/250 ML BAG IV.CONT PRN (12:34)
[2018-04-04] MEDS: Heparin Drip 25,000 UNIT/250 ML BAG IV.CONT PRN ×2 (02:53→16:13)
[2018-04-04] MEDS: Senna/Docusate Sodium 8.6/50 MG Tablet PO SCH ×2 (08:35→20:55)
[2018-04-04] MEDS: Metoprolol Tartrate 50 MG Tablet PO SCH ×2 (08:35→20:50)
[2018-04-04] MEDS: Insulin NovoLOG Aspart Correctional Sugar Inj SQ SCH ×4 (08:35→20:54)
[2018-04-04] MEDS: Insulin Detemir Inj 1,000 UNIT/10 ML Vial SQ SCH ×2 (08:35→20:54)
[2018-04-04] MEDS: Tiotropium Bromide 18 MCG/ACT Inhaler INH SCH (08:36)
[2018-04-04] MEDS: Morphine Sulfate Inj 2 MG/ML Vial IV.PUSH PRN ×2 (10:57→23:23)
[2018-04-04] MEDS: guaiFENesin/Dextromethorphan 200 MG/20 MG 10 ML UDC PO PRN ×2 (10:57→17:37)
[2018-04-04] MEDS ORDERED: Lactic Acid (Ammonium Lactate) 12% Lotion 225 GM Bottle TOPICAL SCH (12:00)
--- NOTE | 2018-04-04 12:00 | P.PN ---
Subjective Interval history: This is a pleasant 63 y/o Male with CAD, PAD, DM II, Hypertension, COPD, seen on multiple opportunities in ER due to dyspnea, found with elevated Troponin level 22.6, associated ST changes. 04/01: Seen in his bedroom discussed with nurse, Cardiothoracic surgery awaiting to re assess the case after Echocardiogram and probable will perform CABG next week. 04/02: no changes to anterior assessment. 04/03: Seen in his bedroom, in the presence of nurse. 04/04: Stable asked to increase Calorie content in his ADA diet, also wants cream for his skin Dyshidrosis given Lactic Acid 12% and no nausea, vomit or diarrhea. Physical Exam Vital signs: Vital Signs 04/03/18 12:00 04/03/18 13:00 04/03/18 14:00 Temperature 97.9 F Pulse Rate 82 82 84 Respiratory Rate 20 Blood Pressure 136/79 Pulse Oximetry 100 04/03/18 15:00 04/03/18 15:32 04/03/18 15:49 Temperature Pulse Rate 85 85 Respiratory Rate 18 Blood Pressure Pulse Oximetry 96 04/03/18 16:00 04/03/18 17:00 04/03/18 18:00 Temperature 98.2 F Pulse Rate 86 94 H 99 H Respiratory Rate 18 Blood Pressure 150/80 H Pulse Oximetry 98 04/03/18 18:41 04/03/18 19:00 04/03/18 20:00 Temperature 98.1 F Pulse Rate 89 88 Respiratory Rate 18 20 Blood Pressure 145/91 H Pulse Oximetry 95 04/03/18 21:00 04/03/18 22:00 04/03/18 23:00 Temperature Pulse Rate 88 78 79 Respiratory Rate Blood Pressure Pulse Oximetry 04/04/18 00:00 04/04/18 00:50 04/04/18 01:00 Temperature 98.1 F Pulse Rate 78 75 80 Respiratory Rate 20 18 Blood Pressure 133/80 Pulse Oximetry 98 04/04/18 02:00 04/04/18 03:00 04/04/18 04:00 Temperature 97.8 F Pulse Rate 80 76 81 Respiratory Rate 20 Blood Pressure 126/75 Pulse Oximetry 95 04/04/18 05:00 04/04/18 05:35 04/04/18 05:53 Temperature Pulse Rate 72 75 Respiratory Rate 20 Blood Pressure Pulse Oximetry 04/04/18 07:00 04/04/18 07:55 04/04/18 08:00 Temperature 97.8 F Pulse Rate 76 69 72 Respiratory Rate 20 18 Blood Pressure 139/83 Pulse Oximetry 99 99 Intake & Output 04/03/18 04/04/18 04/04/18 18:59 06:59 18:59 Intake Total 760 / 760 490 / 490 Output Total 800 / 800 500 / 500 Balance -40 / -40 -10 / -10 Weight 98.3 kg Intake: IV 250 / 250 250 / 250 Heparin/D5W 25,000 U/250 mL 25, 250 / 250 250 / 250 000 unit In 250 ml @ Per Protocol IV.CONT TITRATE PRN Rx #:[id number] Oral 510 / 510 240 / 240 Output: Urine 800 / 800 500 / 500 Other: Date of Last Bowel Movement 04/03/18 04/03/18 # Bowel Movements 1 Narrative: GENERAL: Obese patient in No acute distress. SKIN: Warm and dry. HEAD: Normocephalic. EYES: No scleral icterus. No injection or drainage. NECK: Supple, trachea midline. Positive JVD. CARDIOVASCULAR: Regular rate and rhythm without murmurs, gallops, or rubs. RESPIRATORY: Breath sounds equal bilaterally. No accessory muscle use. GASTROINTESTINAL: Abdomen soft, non-tender, nondistended. MUSCULOSKELETAL: No cyanosis. +2 edema bilateral lower extremities, improving. No erythema. BACK: Nontender without obvious deformity. No CVA tenderness. Results - Labs CBC & Chem 7: 03/31/18 07:10 04/01/18 03:32 Laboratory Results - last 24 hr 04/03/18 04/03/18 04/04/18 16:41 20:12 07:02 APTT POC Glucose 297 H 161 H 183 H 04/04/18 04/04/18 07:35 11:05 APTT 62.2 H POC Glucose 236 H - Imaging Chest X-Ray 03/28/18 05:13 CONCLUSION: 1. Mild streaky perihilar opacities which may represent early pulmonary edema. There is no focal consolidation. 2. Apparent minimal effusions. - Procedures Cardiac Cath. Assessment and Plan - Plan 1. STEMI/CHF exacerbation on admission, Sent from [place] [facility] to [facility], Status post Cardiac Catheterization on 03/29 developed Pulmonary Edema significant bilateral lower extremity edema, received diuresis, went for for cardiac cath, found with Multivessel CAD. Place consult for cardiothoracic surgery. Edema, shortness of breath improving. Continue diuresis, Cardiothoracic surgery NOTES: This patient is non-compliant with meds and presented with a significant NM. His EF is now ~20% with acute systolic and diastolic heart failure. He c/o dyspnea with minimal exertion. His distal targets are very small and CABG will be technically difficult. I will repeat his ECHO on Thursday and re-evaluate for possible CABG next week. 2. ALISHA on CKD III on admission Creatinine 2.3 now 1.92 now at baseline. 3. COPD with mild exacerbation, Improved, Bronchodilators, Mucolytic and incentive spirometry 4. DM II, to continue sliding scale high dose insulin, adjusted Levemir to 15 Units BID. 5. Tinea infection Bilateral lower extremities, continue fungal cream. DVT Prophylaxis Heparin Drip Code Status: full Code. Discussed Condition With: Patient and Nurse Miss Alexander Discharge Planning: pending cardiology clearance.
[2018-04-04] MEDS: Clotrimazole 1% Cream 15 GM Tube TOPICAL SCH ×2 (12:59→20:54)
[2018-04-04] MEDS: Influenza (Quadrivalent) Vaccine 0.5 ML Syringe IM ONE (21:32)
[2018-04-05] MEDS: Heparin Drip 25,000 UNIT/250 ML BAG IV.CONT PRN ×2 (04:46→20:03)
[2018-04-05] MEDS: Metoprolol Tartrate 50 MG Tablet PO SCH ×2 (08:36→20:28)
[2018-04-05] MEDS: Tiotropium Bromide 18 MCG/ACT Inhaler INH SCH (08:36)
[2018-04-05] MEDS: Insulin NovoLOG Aspart Correctional Sugar Inj SQ SCH ×4 (08:36→20:29)
[2018-04-05] MEDS: Insulin Detemir Inj 1,000 UNIT/10 ML Vial SQ SCH ×2 (08:37→20:28)
[2018-04-05] MEDS: Senna/Docusate Sodium 8.6/50 MG Tablet PO SCH ×2 (08:37→20:28)
[2018-04-05] MEDS: Clotrimazole 1% Cream 15 GM Tube TOPICAL SCH ×2 (08:37→20:29)
--- NOTE | 2018-04-05 08:39 | CATHPROC ---
Make Works HIS Report Study Information Study Number Admission Scheduled Start Study Start [id number] Mar 29 2018 10:45PM 03/30/2018 Mar 30 2018 2:01PM [place] Service Cath Endovascular Study Admit Source Facility Department Emergency department [facility] - Flat Sorting Machine Clerk Physician and Clinical Staff Initial Sheree Wiggins Airline Managerial Supervisor Keny Esteban,RN Recorder Student, DIE DESIGNER/RT(R) Recorder Birgit CarranzaRT(R) (BS) Scrub Ortega HardwickDIE DESIGNER(BS) Procedures Performed Procedure Location (Site) Vessel Name Coronary Angiograms LCA Left Coronary Coronary Angiograms RCA Right Coronary L Heart Cath Wire insertion Fem Art (right) Femoral Art Equipment Time Steel Pourer Description Size Mfg Part Number Used/Scraped TRANSDUCER, TRPORFIRIO [id number] 14:30 [employer] Fusion * Used W/STOCKCOCK *[id number] 14:30 [facility] SUPPORT, ARTERIAL ADULT [id number] Used [id number] 15:27 CARD[employer] MEDICAL VASCADE, FR5 CLOSURE SYSTEM FR 5 Used *[id number] INTRODUCER SET, 15:08 [employer] FR 5 [id number] *[id number] Used MICROPUNCTURE STIFF SDN-21-2.5 14:30 [employer] NEEDLE, PERCUTANEOUS ENTRY 21G X 2.5CM Used *[id number] WIRE, AMPLATZ SUPER STIFF 15:12 [employer] Works .035 [id number] *[id number] Used STRT [id number] 14:30 [employer] BLANKET,WARM AIR CCL * Used *[id number] 14:30 [employer] PACK, CCL CUSTOM * Used *[id number] 15:15 [employer] JL 4.0 DXTERITY CATHETER FR 5 Used *[id number] 15:15 [employer] JR 4.0 DXTERITY CATHETER FR 5 Used *[id number] 14:30 [employer] WIRE, EXCHANGE 260CM 3MMJ 260CM Used *[id number] PROBE COVER, STERILE [id number] 14:53 [employer] MEDICAL * Used ULTRASOUND W/ GEL *[id number] PROBE COVER, STERILE [id number] 15:09 [employer] MEDICAL * Used ULTRASOUND W/ GEL *[id number] 14:30 [employer] MANIFOLD, 4 PORT * Used *[id number] 14:30 [employer] OMNIPAQUE, 350 MG, 150ML 150ML [id number] Used 14:53 [employer] JELCO NEEDLE 4056 *[id number] Used 14:56 [employer] NEEDLE 4056 *[id number] Used 14:56 [employer] NEEDLE 4056 *[id number] Used 15:01 [employer] NEEDLE 4056 *[id number] Used 15:02 [employer] NEEDLE 4056 *[id number] Used [id number] 15:07 [employer] SHEATH, FR5 TERUMO (10CM) FR 5 Used *[id number] 15:12 [employer] SHEATH, FR5 TERUMO (10CM) FR 5 Used *[id number] Equipment Model, Serial, Lot Number and Expiration Data Description Model Number Serial Number Lot Number Expiration Date JL 4.0 DXTERITY CATHETER [id number] 05-12-2020 JR 4.0 DXTERITY CATHETER [id number] 08-06-2020 WIRE, AMPLATZ SUPER STIFF STRT [id number] 11-30-2020 History: Current Medications Medication Dosage/Unit Route Frequency Last Date/Time Taken ASA Statins (any) LISINOPRIL Beta Jigna History: Allergies Allergy Reaction No Known Allergies History: Risk Factors Family History of Hypertension Dyslipidemia Previous AR Previous Heart Failure Premature CAD Yes Yes Yes Yes Yes Prior Valve Prior PCI Prior CABG Surgery No Yes No Cerebrovascular Peripheral Artery Chronic Lung On Dialysis Diabetes Disease Disease Disease No No Yes Yes Yes History: Symptoms/Diagnosis Selection Items SOB History: CV Disease Selection Items Known CAD History: Stress Tests Stress or Imaging Studies Performed No History: Other Disease Selection Items COPD HTN History: Other Current Smoker Method Quit Packs a Day Years Used Pack Years No Cigarettes 5 Years Ago 3 20 60 Labs Hgb (g/dl) Hct (%) WBC (l/cumm) Platelets (thousands) 11.60-17.00 35.00-51.00 4.00-11.00 150.00-450.00 10.3 30.5 8.5 230 Glucose (mg/dl) BUN (mg/dl) Creatinine (mg/dl) BUN:Creatinine (1:x) 74.00-106.00 7.00-18.00 0.50-1.30 10.00-20.00 245 44 1.9 23.2 Na (meq/l) K (meq/l) 136.00-145.00 3.50-5.10 138 4.1 INR (PTT:PT) 0.90-1.10 1 CPK-MB (ng/ML) 0.50-3.60 Not Drawn Medication Medication Total Dose (Bolus/Oral) Medication Total Dosage/Unit 1% XYLOCAINE 40 mL FENTANYL 75 mcg VERSED 3 mg Medications (Bolus/Oral) Medication Time Given Dosage/Unit Administered By Reason FENTANYL 03/30/2018 2:30:24 PM 50 mcg Ferlitto Keny 50 mcg FENTANYL given in lab by Keny Esteban RN in Right Antecubital via Peripheral IV. Ordered by Sheree Wan. VERSED 03/30/2018 2:48:14 PM 1 mg Ferlitto, Keny 1 mg VERSED given in lab by Keny Esteban RN in Right Antecubital via Peripheral IV. Ordered by Sheree Pompa. FENTANYL 03/30/2018 2:48:49 PM 25 mcg Ferlitto, Keny 25 mcg FENTANYL given in lab by Keny Esteban RN in Right Antecubital via Peripheral IV. Ordered by Sheree Wan. 1% XYLOCAINE 03/30/2018 2:51:16 PM 10 mL Sheree Wan 10 mL 1% XYLOCAINE given in lab by Sheree Wan in Right Radial via Subcutaneous. Ordered by Asha Wan. VERSED 03/30/2018 2:54:23 PM 1 mg Ferlitto, Keny 1 mg VERSED given in lab by Keny Esteban RN in Right Antecubital via Peripheral IV. Ordered by Sheree Pompa. 1% XYLOCAINE 03/30/2018 2:54:33 PM 10 mL Sheree Wan 10 mL 1% XYLOCAINE given in lab by Sheree Wan in Right Radial via Subcutaneous. Ordered by Asha Wan. 1% XYLOCAINE 03/30/2018 3:08:22 PM 20 mL Sheree Wan 20 mL 1% XYLOCAINE given in lab by Sheree Wan in Right Groin via Subcutaneous. Ordered by Esha Wan. VERSED 03/30/2018 3:08:35 PM 1 mg Ferlitto, Keny 1 mg VERSED given in lab by Keny Esteban RN in Right Antecubital via Peripheral IV. Ordered by Sheree Pompa. Medication (Drip) Medication Time Given Dosage/Unit Concentration/Unit Diluent (ml) Solution IV Solutions 03/30/2018 2:01:07 PM 50 mL (IV) NaCl .9 Patient arrived on IV Solutions via Peripheral IV. Pump/Drip Flow using NaCl .9. Initial Case Assessment Cardiovascular HR NIBP Chest Pain 86 160/80 0 Edema Present Skin color Skin Mild Normal Warm Dry Circulatory - Right Pulses Dorsalis Pedis Femoral Radial 1 1 1 Scale (0,1,2,3,4,d) Circulatory - Left Pulses Dorsalis Pedis Femoral Radial 1 1 1 Scale (0,1,2,3,4,d) Neurological State Oriented to time-place- Alert Moves all extremities person Respiration - General Respiration Rate SpO2 (%) O2 (lpm) (B/min) 13 99 2 Final Case Assessment Cardiovascular HR NIBP Chest Pain 85 162/84 0 Edema Present Skin color Skin Mild Normal Warm Dry Circulatory - Right Pulses Dorsalis Pedis Femoral Radial 1 1 1 Scale (0,1,2,3,4,d) Circulatory - Left Pulses Dorsalis Pedis Femoral Radial 1 1 1 Scale (0,1,2,3,4,d) Neurological State Oriented to time-place- Alert Moves all extremities person Respiration - General Respiration Rate SpO2 (%) O2 (lpm) (B/min) 18 97 2 Chronological Log Time Study Chronological Log 14:00:46 Patient arrived via Bed. 14:00:47 Patient Name, D.O.B, / Armband Verified By R.N. 14:00:48 Consent signed by the physician and the patient and verified by the Flat Sorting Machine Clerk staff. 14:00:50 Pre-op and post- op instructions given; patient acknowledges understanding of instructions. 14:00:52 Presedation assessment performed by Flat Sorting Machine Clerk RN. 14:00:59 Allens test performed on the right radial and ulnar artery. 14:01:01 Immediate Presedation assesment performed by physician. 14:01:02 Patient has been NPO for More than 6Hrs. 14:01:03 Skin Breakdown-None per pt 14:01:04 Patient Warmer Placed on the Table. 14:01:05 Hoda Prominences Protected 14:01:07 A # 20 IV was noted in the Antecubital (right). Grade = 0 14:01:07 Patient arrived on IV Solutions via Peripheral IV. Pump/Drip Flow using NaCl .9. 14:01:08 History and physical on the chart or being dictated. Vitals capture started with the following parameters, Patient=Adult, Interval=5 min, Initial Pr qthezy=908 mmHg, 14:16:52 Deflation Rate=5 mmHg, Cuff placed on Left Arm 14:17:56 HR=85 bpm, OLDO=146/101 mmhg, SpO2=98.0 %, Resp=13 B/min 14:22:31 Verbal Stimulation=2 Physical Stimulation=2 Airway=2 Respiration=2 TOTAL=8. (0=absent, 1=li mited, 2=present) 14:22:51 Patient has been NPO for More than 6Hrs. Assessment: Initial Case, HR=86 BPM, CTKD=936/80 mmhg, Chest Pain=0, Edema=Mild, Color=Normal, Skin = Warm, Dry Right Pulses: Pavan Ped=1, Femoral=1, Radial=1 14:23:13 Left Pulses: Pavan Ped=1, Femoral=1, Radial=1 Neurological: State=Alert, Ox3, JARQUIN Respiration: Resp=13 B/min, SpO2=99 %, O2=2 lpm 14:23:23 Reference ECG taken 14:23:38 Pressure channel 1 zeroed. Vitals capture started with the following parameters, Patient=Adult, Interval=5 min, Initial Pr sjeter=815 mmHg, 14:23:43 Deflation Rate=5 mmHg, Cuff placed on Left Arm 14:24:25 HR=80 bpm, LKLM=496/80 mmhg, SpO2=99.0 %, Resp=14 B/min 14:29:20 HR=82 bpm, ZHBM=273/86 mmhg, SpO2=98.0 %, Resp=15 B/min 14:30:24 50 mcg FENTANYL given in lab by Keny Esteban RN in Right Antecubital via Peripheral IV. Ordered by Sheree Wan. 14:34:48 paged 14:34:49 MD responded 14:35:08 HR=82 bpm, CUAF=193/78 mmhg, SpO2=96.0 %, Resp=29 B/min, Pain=0, Susan=10, Hassan=2 14:39:26 HR=79 bpm, WRDI=239/80 mmhg, SpO2=96.0 %, Resp=15 B/min, Pain=0, Susan=10, Hassan=2 14:43:44 MD arrived. 14:44:39 HR=82 bpm, NIBP=96/54 mmhg, SpO2=98 %, Resp=17 B/min, Pain=0, Susan=10, Hassan=2 Time Out. Correct patient, correct procedure, correct physician, labs, allergies, and equipment verified with pathology lab technician 14:47:00 team present. Fire risk assesment completed (see hard stop sheet for coding). Time Out Conc urred by MD and individual staff in procedure. 14:48:14 1 mg VERSED given in lab by Keny Esteban RN in Right Antecubital via Peripheral IV. Orde red by Sheree Wan. 14:48:49 25 mcg FENTANYL given in lab by Keny Esteban, TIEN in Right Antecubital via Peripheral IV. Ordered by Sheree Wan. 14:49:46 HR=85 bpm, IATT=116/79 mmhg, SpO2=97.0 %, Resp=15 B/min, Pain=0, Susan=10, Hassan=2 14:51:08 Case Start 14:51:16 10 mL 1% XYLOCAINE given in lab by Sheree Wan in Right Radial via Subcutaneous. Ordered b y Sheree Wan. 14:54:23 1 mg VERSED given in lab by Keny Esteban RN in Right Antecubital via Peripheral IV. Orde red by Sheree Wan. 14:54:25 HR=79 bpm, VNCG=514/77 mmhg, SpO2=97.0 %, Resp=15 B/min, Pain=0, Susan=10, Hassan=2 14:54:33 10 mL 1% XYLOCAINE given in lab by Sheree Wan in Right Radial via Subcutaneous. Ordered b y Sheree Wan. 14:59:59 HR=77 bpm, OYND=523/69 mmhg, SpO2=94.0 %, Resp=15 B/min, Pain=0, Susan=10, Hassan=2 15:05:04 HR=79 bpm, GPGN=358/68 mmhg, SpO2=96.0 %, Resp=16 B/min, Pain=0, Susan=10, Hassan=2 15:08:22 20 mL 1% XYLOCAINE given in lab by Sheree Wan in Right Groin via Subcutaneous. Ordered by Sheree Wan. 15:08:35 1 mg VERSED given in lab by Keny Esteban, RN in Right Antecubital via Peripheral IV. Orde red by Sheree Wan. 15:09:08 Access site was Right Femoral Artery. A INTRODUCER SET, MICROPUNCTURE STIFF FR 5 was advanced into the Fem Art (right) using the Perc utaneous 15:09:14 technique. 15:09:24 HR=80 bpm, RGHY=801/77 mmhg, SpO2=97.0 %, Resp=13 B/min A SHEATH, FR5 TERUMO (10CM) FR 5 was exchanged in the Fem Art (right). This was necessary in or maryjane to 15:09:25 accomodate a larger catheter. 15:12:43 A WIRE, AMPLATZ SUPER STIFF STRT .035 was inserted via Fem Art (right). 15:12:49 A SHEATH, FR5 TERUMO (10CM) FR 5 was advanced into the Fem Art (right) using the Percutaneo us technique. 15:14:15 An injection in the Fem Art (right) was made through the SHEATH, FR5 TERUMO (10CM) FR 5. 15:14:29 HR=79 bpm, RNCY=072/80 mmhg, SpO2=95.0 %, Resp=16 B/min, Pain=0, Susan=10, Hassan=2 A JL 4.0 DXTERITY CATHETER FR 5 was advanced over a wire. OMNIPAQUE, 350 MG, 150ML 150ML was u sed for 15:15:02 injections. 15:17:17 The LCA was injected and visualized at various angles. OMNIPAQUE, 350 MG, 150ML 150ML use d. Recorded Pressure: Ao, HR=77, Condition=Condition 1 15:17:30 (Aorta) Ao 128/70/93 15:19:30 HR=80 bpm, GERU=356/67 mmhg, SpO2=96.0 %, Resp=15 B/min, Pain=0, Susan=10, Hassan=2 After removing the current catheter a JR 4.0 DXTERITY CATHETER FR 5 was advanced over a WIRE, AMPLATZ SUPER 15:19:54 STIFF STRT .035. 15:22:19 The RCA was injected and visualized at various angles. OMNIPAQUE, 350 MG, 150ML 150ML use d. 15:23:28 Wire removed 15:23:36 Catheter was removed 15:23:55 Case End (Physician broke scrub) 15:24:04 Activated Clotting Time Drawn 15:24:54 HR=86 bpm, [facility]=593/84 mmhg, SpO2=97.0 %, Resp=18 B/min, Pain=0, Susan=10, Hassan=2 15:25:22 Catheter(s) removed without difficulty Assessment: Final Case, HR=85 BPM, HZCG=727/84 mmhg, Chest Pain=0, Edema=Mild, Color=Normal, S kin = Warm, Dry Right Pulses: Pavan Ped=1, Femoral=1, Radial=1 15:25:30 Left Pulses: Pavan Ped=1, Femoral=1, Radial=1 Neurological: State=Alert, Ox3, JARQUIN Respiration: Resp=18 B/min, SpO2=97 %, O2=2 lpm 15:26:03 No case complications noted. 15:26:04 Cine recording checked. 15:26:08 Bedside Report will be given. 15:26:12 A Left Heart Cath was performed. 15:27:41 ACT (Normal Range 90-180) = 124 15:28:11 VASCADE, FR5 CLOSURE SYSTEM FR 5 placement in the Fem Art (right) 15:30:05 HR=82 bpm, TMUJ=829/68 mmhg, SpO2=98.0 %, Resp=16 B/min, Pain=0, Susan=10, Hassan=2 15:34:29 HR=84 bpm, JFJL=644/80 mmhg, SpO2=97.0 %, Resp=18 B/min, Pain=0, Susan=10, Hassan=2 15:38:33 Patient moved to stretcher End Study - Contrast Media Used In Study Contrast Total Opened (mL) Total Used (mL) Total Wasted (mL) Omnipaque 50 50 0 End Study - Maximum Contrast Load Max Contrast Load (mL) 264.7 End Study - Radiation Exposure Fluoro Time (minutes) 3.2 End Study - Patient Disposition Complications Transferred To Interventional Outcome No Telemetry Bed No attempt made
--- NOTE | 2018-04-05 09:59 | P.PN ---
Subjective Interval history: This is a pleasant 63 y/o Male with CAD, PAD, DM II, Hypertension, COPD, seen on multiple opportunities in ER due to dyspnea, found with elevated Troponin level 22.6, associated ST changes. 04/01: Seen in his bedroom discussed with nurse, Cardiothoracic surgery awaiting to re assess the case after Echocardiogram and probable will perform CABG next week. 04/02: no changes to anterior assessment. 04/03: Seen in his bedroom, in the presence of nurse. 04/04: Stable asked to increase Calorie content in his ADA diet, also wants cream for his lower extremity Tinea corporis 04/05: Discussed with market risk specialist Doctor Savage will follow new Echocardiogram, awaiting for CTS evaluation, if no procedure planned he is planning to discharge on Medical management. Physical Exam Vital signs: Vital Signs 04/04/18 10:00 04/04/18 11:00 04/04/18 12:00 Temperature 98.2 F Pulse Rate 68 76 70 Respiratory Rate 18 18 Blood Pressure 136/72 Pulse Oximetry 99 04/04/18 13:00 04/04/18 13:20 04/04/18 14:00 Temperature Pulse Rate 72 77 82 Respiratory Rate 22 Blood Pressure Pulse Oximetry 04/04/18 15:00 04/04/18 16:00 04/04/18 17:00 Temperature 97.9 F Pulse Rate 92 H 74 76 Respiratory Rate 18 Blood Pressure 116/66 Pulse Oximetry 95 04/04/18 18:00 04/04/18 19:00 04/04/18 19:14 Temperature 98.1 F Pulse Rate 82 84 82 Respiratory Rate 20 Blood Pressure 150/82 H Pulse Oximetry 97 04/04/18 20:00 04/04/18 20:56 04/04/18 20:59 Temperature Pulse Rate 80 84 Respiratory Rate 18 Blood Pressure Pulse Oximetry 98 04/04/18 21:00 04/04/18 22:00 04/04/18 23:00 Temperature Pulse Rate 84 84 84 Respiratory Rate Blood Pressure Pulse Oximetry 04/05/18 00:00 04/05/18 01:00 04/05/18 02:00 Temperature 98.2 F Pulse Rate 74 70 80 Respiratory Rate 20 Blood Pressure 133/74 Pulse Oximetry 98 04/05/18 03:00 04/05/18 03:14 04/05/18 04:00 Temperature 98.1 F Pulse Rate 80 61 82 Respiratory Rate 20 20 Blood Pressure 140/51 L Pulse Oximetry 97 04/05/18 05:00 04/05/18 06:00 04/05/18 08:00 Temperature 97.9 F Pulse Rate 78 85 83 Respiratory Rate 18 Blood Pressure 140/80 Pulse Oximetry 99 04/05/18 08:47 Temperature Pulse Rate Respiratory Rate Blood Pressure Pulse Oximetry 95 Intake & Output 04/04/18 04/05/18 04/05/18 18:59 06:59 18:59 Intake Total 1030 / 1030 490 / 490 Output Total 700 / 700 750 / 750 Balance 330 / 330 -260 / -260 Weight 97.9 kg Intake: IV 250 / 250 250 / 250 Heparin/D5W 25,000 U/250 mL 25, 250 / 250 250 / 250 000 unit In 250 ml @ Per Protocol IV.CONT TITRATE PRN Rx #:[id number] Oral 780 / 780 240 / 240 Output: Urine 700 / 700 750 / 750 Other: # Voids 1 Date of Last Bowel Movement 04/04/18 # Bowel Movements 1 Narrative: GENERAL: Obese patient in No acute distress. SKIN: Warm and dry. HEAD: Normocephalic. EYES: No scleral icterus. No injection or drainage. NECK: Supple, trachea midline. Positive JVD. CARDIOVASCULAR: Regular rate and rhythm without murmurs, gallops, or rubs. RESPIRATORY: Breath sounds equal bilaterally. No accessory muscle use. GASTROINTESTINAL: Abdomen soft, non-tender, nondistended. MUSCULOSKELETAL: No cyanosis. +2 edema bilateral lower extremities, improving. No erythema. BACK: Nontender without obvious deformity. No CVA tenderness. Results - Labs CBC & Chem 7: 03/31/18 07:10 04/06/18 11:00 Laboratory Results - last 24 hr 04/04/18 04/04/18 04/04/18 11:05 16:12 20:48 APTT POC Glucose 236 H 206 H 151 H 04/05/18 04/05/18 04:13 08:27 APTT 43.8 H D POC Glucose 190 H - Imaging Chest X-Ray 03/28/18 05:13 CONCLUSION: 1. Mild streaky perihilar opacities which may represent early pulmonary edema. There is no focal consolidation. 2. Apparent minimal effusions. - Procedures Cardiac Cath. Assessment and Plan - Plan 1. STEMI/CHF exacerbation on admission, Sent from [place] [facility] to [facility], Status post Cardiac Catheterization on 03/29 developed Pulmonary Edema significant bilateral lower extremity edema, received diuresis, went for for cardiac cath, found with Multivessel CAD. Place consult for cardiothoracic surgery. Edema, shortness of breath improving. Continue diuresis, Cardiothoracic surgery NOTES: This patient is non-compliant with meds and presented with a significant TX. His EF is now ~20% with acute systolic and diastolic heart failure. He c/o dyspnea with minimal exertion. His distal targets are very small and CABG will be technically difficult. I will repeat his ECHO on Thursday and re-evaluate for possible CABG next week. awaiting for Cardiothoracic surgery recommendations. 2. ALISHA on CKD III on admission Creatinine 2.3 now 1.92 now at baseline. 3. COPD with mild exacerbation, Improved, Bronchodilators, Mucolytic and incentive spirometry 4. DM II, to continue sliding scale high dose insulin, adjusted Levemir to 15 Units BID. continue Uncontrolled medicines adjusted. 5. Tinea infection Bilateral lower extremities, continue fungal cream. DVT Prophylaxis Heparin Drip Code Status: Full code. Discussed Condition With: Patient, Nurse and MDR. Discharge Planning: pending cardiology clearance.
[2018-04-05] MEDS: guaiFENesin/Dextromethorphan 200 MG/20 MG 10 ML UDC PO PRN (16:17)
[2018-04-05] MEDS: Morphine Sulfate Inj 2 MG/ML Vial IV.PUSH PRN (18:22)
[2018-04-06] MEDS: Metoprolol Tartrate 50 MG Tablet PO SCH (08:51)
[2018-04-06] MEDS: Senna/Docusate Sodium 8.6/50 MG Tablet PO SCH ×2 (08:51→20:54)
--- NOTE | 2018-04-06 08:52 | P.PNCA ---
Subjective Interval history: No acute events Medications and Allergies Active Medications: Active Medications Acetaminophen (Tylenol) 650 mg PO Q4H PRN PRN Reason: Temp > 100.4 Hydrocodone Bitart/Acetaminophen ([place] 5/325) 1 tab PO Q4H PRN PRN Reason: PAIN SCALE 6 TO 10 Last Admin: 04/05/18 21:50 Dose: 1 tab Al Hydroxide/Mg Hydroxide (Milk Of Magnesia Liq) 30 ml PO Q12H PRN PRN Reason: Mild Constipation Albuterol (Duoneb Neb (Prn)) 1 ampul NEB Q4HR NEB PRN PRN Reason: SOB/WHEEZING Last Admin: 04/06/18 07:52 Dose: 1 ampul Albuterol (Albuterol Neb (Prn)) 2.5 mg NEB QID NEB PRN PRN Reason: SHORTNESS OF BREATH Last Admin: 04/06/18 04:13 Dose: 2.5 mg Atorvastatin Calcium (Lipitor) 80 mg PO HS [facility] Last Admin: 04/05/18 20:28 Dose: 80 mg Bisacodyl (Dulcolax Supp) 10 mg RECTAL DAILY PRN PRN Reason: SEVERE CONSITIPATION Clotrimazole (Lotrimin 1% Cream) 1 applicatio TOPICAL BID [facility] Last Admin: 04/05/18 20:29 Dose: 1 applicatio Dextrose (D50w Vial) 50 ml IV.PUSH UNSCH PRN PRN Reason: PER HYPOGLYCEMIA PROTOCOL Furosemide (Lasix Inj) 40 mg IV.PUSH BID@0900,1800 [facility] Last Admin: 04/05/18 17:37 Dose: 40 mg Glucagon (Glucagon Inj) 1 mg OTHER PRN PRN PRN Reason: for Hypoglycemia Protocol Guaifenesin/Dextromethorphan (Robitussin Dm 200/20 Mg/10 Ml Liq) 10 ml PO Q4H PRN PRN Reason: COUGH Last Admin: 04/05/18 16:17 Dose: 10 ml Heparin Sodium/Dextrose (Heparin/D5w 25,000 U/250 Ml) 25,000 unit in 250 mls @ 0 mls/hr IV.CONT TITRATE PRN; Protocol PRN Reason: Per Protocol Last Admin: 04/05/18 20:03 Dose: 1,800 units/hr, 18 mls/hr Insulin Aspart (Novolog Insulin [place] Sugar Inj) 0 unit SQ ACHS [place]; Protocol Last Admin: 04/05/18 20:29 Dose: Not Given Insulin Detemir (Levemir Inj) 15 unit SQ BID [facility] Last Admin: 04/05/18 20:28 Dose: 15 unit Lactulose (Lactulose Liq) 30 ml PO DAILY PRN PRN Reason: SEVERE CONSITIPATION Metoprolol Tartrate (Lopressor) 50 mg PO BID [facility] Last Admin: 04/05/18 20:28 Dose: 50 mg Morphine Sulfate (Morphine Inj) 1 mg IV.PUSH Q4H PRN PRN Reason: BREAKTHROUGH PAIN Last Admin: 04/05/18 18:22 Dose: 1 mg Nitroglycerin (Nitrostat Sl) 0.4 mg SL Q5M PRN PRN Reason: CHEST PAIN Ondansetron HCl (Zofran Inj) 4 mg IV.PUSH Q6H PRN PRN Reason: NAUSEA OR VOMITING Last Admin: 04/03/18 20:02 Dose: 4 mg Senna/Docusate Sodium (Abiola-Colace) 1 tab PO BID [facility] Last Admin: 04/05/18 20:28 Dose: 1 tab Sennosides (Senokot) 17.2 mg PO Q12H PRN PRN Reason: Moderate Constipation Sodium Chloride (Ns Flush) 2 ml IV.FLUSH UNSCH PRN PRN Reason: FLUSH AFTER USING IV ACCESS Last Admin: 03/31/18 09:34 Dose: 2 ml Tiotropium [place] (Spiriva 18 Mcg Inh) 18 mcg INH DAILY [facility] Last Admin: 04/05/18 08:36 Dose: 18 mcg Allergies Allergy/AdvReac Type Severity Reaction Status Date / Time No Known Allergies Allergy Verified 03/27/18 10:29 Home Medications Medication Instructions Recorded Confirmed Type aspirin [Aspir-81] 325 mg PO DAILY 01/15/18 03/28/18 History atorvastatin [Lipitor] 80 mg PO HS 01/15/18 03/28/18 History hydrocodone-acetaminophen [Ladoga] 1 tab PO Q6H 01/15/18 03/28/18 History insulin regular human [Humulin R 1 sliding scale dose SUB-Q UD 01/15/18 History Regular U-100 Insuln] isosorbide mononitrate 30 mg PO DAILY 01/15/18 03/28/18 History lidocaine [Lidocaine Pain Relief] 1 patch TOPICAL Q8H 01/15/18 03/28/18 History lisinopril 10 mg PO DAILY 01/15/18 03/28/18 History metoprolol tartrate 25 mg PO DAILY 01/15/18 03/28/18 History ranitidine HCl [Zantac] 150 mg PO BID 01/15/18 03/28/18 History sitagliptin-metformin [Janumet] 1 tab PO DAILY 01/15/18 03/28/18 History tamsulosin [Flomax] 0.4 mg PO HS 01/15/18 03/28/18 History Physical Exam Vital signs: Vital Signs 04/05/18 09:00 04/05/18 10:00 04/05/18 11:00 Temperature Pulse Rate 82 74 79 Respiratory Rate 16 Blood Pressure Pulse Oximetry 04/05/18 12:00 04/05/18 13:00 04/05/18 13:48 Temperature 97.9 F Pulse Rate 78 86 82 Respiratory Rate 18 16 Blood Pressure 138/77 Pulse Oximetry 97 04/05/18 14:00 04/05/18 15:00 04/05/18 16:00 Temperature 98.0 F Pulse Rate 86 91 H 82 Respiratory Rate 18 Blood Pressure 137/74 Pulse Oximetry 96 04/05/18 16:25 04/05/18 17:00 04/05/18 18:00 Temperature Pulse Rate 88 82 88 Respiratory Rate 18 Blood Pressure Pulse Oximetry 04/05/18 19:00 04/05/18 20:00 04/05/18 21:00 Temperature 97.4 F L Pulse Rate 93 H 82 80 Respiratory Rate 20 Blood Pressure 134/72 Pulse Oximetry 96 04/05/18 22:00 04/05/18 23:00 04/06/18 00:00 Temperature 98.2 F Pulse Rate 78 73 74 Respiratory Rate 22 Blood Pressure 146/77 H Pulse Oximetry 94 L 04/06/18 01:00 04/06/18 02:00 04/06/18 03:00 Temperature Pulse Rate 72 77 73 Respiratory Rate Blood Pressure Pulse Oximetry 04/06/18 04:00 04/06/18 04:14 04/06/18 05:00 Temperature 97.2 F L Pulse Rate 78 80 88 Respiratory Rate 22 16 Blood Pressure 138/84 Pulse Oximetry 98 04/06/18 06:00 04/06/18 07:53 04/06/18 08:00 Temperature 98.6 F Pulse Rate 81 82 85 Respiratory Rate 20 20 Blood Pressure 145/82 H Pulse Oximetry 96 Intake & Output 04/05/18 04/06/18 04/06/18 18:59 06:59 18:59 Intake Total 890 / 890 240 / 240 Output Total 700 / 700 825 / 825 Balance 190 / 190 -585 / -585 Weight 98.8 kg Intake: IV 250 / 250 Heparin/D5W 25,000 U/250 mL 25, 250 / 250 000 unit In 250 ml @ Per Protocol IV.CONT TITRATE PRN Rx #:[id number] Oral 640 / 640 240 / 240 Output: Urine 700 / 700 825 / 825 Other: # Bowel Movements 1 - Constitutional no acute distress - Routine Neck Exam Absent: JVD - Routine Cardiovascular Exam Present: RRR, S1, S2 - Routine Abdominal Exam Present: soft, normoactive bowel sounds. Absent: tenderness - Routine Neurological Exam Present: alert, oriented X3, CN II-XII intact - Routine Psychiatric Exam Present: normal affect Results 03/31/18 07:10 04/06/18 11:00 Coagulation 04/05/18 04/06/18 Range/Units 04:13 05:15 APTT 43.8 H D 51.8 H (24.3-30.1) sec Intake and Output 04/05/18 04/06/18 04/06/18 22:59 06:59 14:59 Intake Total 890 / 890 240 / 240 Output Total 700 / 700 825 / 825 Balance 190 / 190 -585 / -585 Intake: IV 250 / 250 Heparin/D5W 25,000 U/250 mL 25, 250 / 250 000 unit In 250 ml @ Per Protocol IV.CONT TITRATE PRN Rx #:[id number] Oral 640 / 640 240 / 240 Output: Urine 700 / 700 825 / 825 Other: # Bowel Movements 1 Weight 98.8 kg Assessment and Plan - Plan 1. NSTEMI -after further discussion, will plan on OMT. The patient has noncompliance and is a poor candidate for surgery or MVPCI -start ASA and Plavix 2. ICM 20% -start lisinopril 2.5 mg po qday -switch to coreg 12.5 mg po BID -lifevest -patient to follow up with Dr. Garrett. 3. Acute on Chronic Renal Failure- Cr is 2.25 which is at baseline. Will start low dose lisinopril 2.5 mg po qday. 4. COPD continue inhalers
[2018-04-06] MEDS: guaiFENesin/Dextromethorphan 200 MG/20 MG 10 ML UDC PO PRN (08:53)
[2018-04-06] MEDS: Insulin NovoLOG Aspart Correctional Sugar Inj SQ SCH ×5 (08:54→20:56)
[2018-04-06] MEDS: Insulin Detemir Inj 1,000 UNIT/10 ML Vial SQ SCH ×2 (08:54→20:56)
[2018-04-06] MEDS: Influenza (Quadrivalent) Vaccine 0.5 ML Syringe IM ONE (10:02)
[2018-04-06] MEDS: Carvedilol 12.5 MG Tablet PO SCH ×2 (10:04→20:54)
[2018-04-06] MEDS: Clotrimazole 1% Cream 15 GM Tube TOPICAL SCH ×2 (10:05→20:56)
[2018-04-06 12:04] LABS: Calcium 8.3 mg/dL (8.5-10.1); Carbon Dioxide 32.7 meq/L (21.0-32.0); Potassium 4.3 meq/L (3.5-5.1)
[2018-04-06] MEDS: Tiotropium Bromide 18 MCG/ACT Inhaler INH SCH (12:26)
--- NOTE | 2018-04-06 13:53 | P.PN ---
Subjective Interval history: This is a pleasant 63 y/o Male with CAD, PAD, DM II, Hypertension, COPD, seen on multiple opportunities in ER due to dyspnea, found with elevated Troponin level 22.6, associated ST changes. 04/01: Seen in his bedroom discussed with nurse, Cardiothoracic surgery awaiting to re assess the case after Echocardiogram and probable will perform CABG next week. 04/02: no changes to anterior assessment. 04/03: Seen in his bedroom, in the presence of nurse. 04/04: Stable asked to increase Calorie content in his ADA diet, also wants cream for his lower extremity Tinea corporis 04/05: Discussed with retirement benefits specialist Doctor Savage will follow new Echocardiogram, awaiting for CTS evaluation, if no procedure planned he is planning to discharge on Medical management. 04/06: Seen in his bedroom, discussed with nurse Miss Skaggs, also with retirement benefits specialist doctor Sheree Wan he already discussed with Cardiothoracic surgery they consider no Procedure for the patient only medical management will place a LifeVest and discharge home, his blood sugar today uncontrolled adjusted Insulin. [employer] Prescription Drug Monitoring Database has been queried and verified prior to prescribing the controlled substance. Acute pain exception. This patient has normal, predicted, physiological, and time limited response to an adverse mechanical stimulus associated with surgery, trauma, or acute illness as described in my notes. There is a lack of alternative treatment options other than to include the prescribed narcotic treatment for this condition. patient just received 120 tablets of Hydrocodone and acetaminophen delivered to his home 03/11/18 Physical Exam Vital signs: Vital Signs 04/05/18 14:00 04/05/18 15:00 04/05/18 16:00 Temperature 98.0 F Pulse Rate 86 91 H 82 Respiratory Rate 18 Blood Pressure 137/74 Pulse Oximetry 96 04/05/18 16:25 04/05/18 17:00 04/05/18 18:00 Temperature Pulse Rate 88 82 88 Respiratory Rate 18 Blood Pressure Pulse Oximetry 04/05/18 19:00 04/05/18 20:00 04/05/18 21:00 Temperature 97.4 F L Pulse Rate 93 H 82 80 Respiratory Rate 20 Blood Pressure 134/72 Pulse Oximetry 96 04/05/18 22:00 04/05/18 23:00 04/06/18 00:00 Temperature 98.2 F Pulse Rate 78 73 74 Respiratory Rate 22 Blood Pressure 146/77 H Pulse Oximetry 94 L 04/06/18 01:00 04/06/18 02:00 04/06/18 03:00 Temperature Pulse Rate 72 77 73 Respiratory Rate Blood Pressure Pulse Oximetry 04/06/18 04:00 04/06/18 04:14 04/06/18 05:00 Temperature 97.2 F L Pulse Rate 78 80 88 Respiratory Rate 22 16 Blood Pressure 138/84 Pulse Oximetry 98 04/06/18 06:00 04/06/18 07:53 04/06/18 08:00 Temperature 98.6 F Pulse Rate 81 82 80 Respiratory Rate 20 20 Blood Pressure 145/82 H Pulse Oximetry 96 92 L 04/06/18 09:00 04/06/18 10:00 04/06/18 12:00 Temperature 98.0 F Pulse Rate 94 H 90 82 Respiratory Rate 20 Blood Pressure 146/80 H Pulse Oximetry 98 04/06/18 13:26 Temperature Pulse Rate 86 Respiratory Rate 18 Blood Pressure Pulse Oximetry Intake & Output 04/05/18 04/06/18 04/06/18 18:59 06:59 18:59 Intake Total 890 / 890 240 / 240 Output Total 700 / 700 825 / 825 Balance 190 / 190 -585 / -585 Weight 98.8 kg Intake: IV 250 / 250 Heparin/D5W 25,000 U/250 mL 25, 250 / 250 000 unit In 250 ml @ Per Protocol IV.CONT TITRATE PRN Rx #:[id number] Oral 640 / 640 240 / 240 Output: Urine 700 / 700 825 / 825 Other: # Bowel Movements 1 Narrative: GENERAL: Obese patient in No acute distress. SKIN: Warm and dry. HEAD: Normocephalic. EYES: No scleral icterus. No injection or drainage. NECK: Supple, trachea midline. Positive JVD. CARDIOVASCULAR: Regular rate and rhythm without murmurs, gallops, or rubs. RESPIRATORY: decreased breath sounds bilateral, no wheezing or crackles. GASTROINTESTINAL: Abdomen soft, non-tender, nondistended. MUSCULOSKELETAL: No cyanosis. +2 edema bilateral lower extremities, improving. No erythema. BACK: Nontender without obvious deformity. No CVA tenderness. Results - Labs CBC & Chem 7: 03/31/18 07:10 04/06/18 11:00 Laboratory Results - last 24 hr 04/05/18 04/05/18 04/06/18 17:18 20:27 05:15 APTT 51.8 H Sodium Potassium Chloride Carbon Dioxide Anion Gap BUN Creatinine Estimated GFR POC Glucose 303 H 136 H Random Glucose Calcium 04/06/18 04/06/18 04/06/18 07:59 11:00 11:27 APTT Sodium 137 Potassium 4.3 Chloride 98 Carbon Dioxide 32.7 H Anion Gap 6 BUN 40 H Creatinine 2.25 H Estimated GFR 30 L POC Glucose 236 H 352 H Random Glucose 340 H Calcium 8.3 L - Imaging Chest X-Ray 03/28/18 05:13 CONCLUSION: 1. Mild streaky perihilar opacities which may represent early pulmonary edema. There is no focal consolidation. 2. Apparent minimal effusions. - Procedures Cardiac Cath. Assessment and Plan - Plan 1. STEMI/CHF exacerbation on admission, Sent from [place] ER to [facility], Status post Cardiac Catheterization on 03/29 developed Pulmonary Edema significant bilateral lower extremity edema, received diuresis, went for for cardiac cath, found with Multivessel CAD. Place consult for cardiothoracic surgery. Edema, shortness of breath improving. Continue diuresis, Cardiothoracic surgery NOTES: This patient is non-compliant with meds and presented with a significant WA. His EF is now ~20% with acute systolic and diastolic heart failure. He c/o dyspnea with minimal exertion. His distal targets are very small and CABG will be technically difficult. I will repeat his ECHO on Thursday and re-evaluate for possible CABG next week 04/06: Discussed with retirement benefits specialist Doctor Sheree Wan He discussed with Cardiothoracic surgery they won't perform any procedure, he recommended for discharge the patient after LifeVest placed. 2. ALISHA on CKD III on admission Creatinine 2.25 today his Creatinine level is 1.8 to 1.9 removed IV diuretics and will continue Lasix by mouth BID and follow BMP tomorrow. 3. COPD with mild exacerbation, Improved, Bronchodilators, Mucolytic and incentive spirometry 4. DM II, to continue sliding scale high dose insulin, today uncontrolled in am , during the afternoon was 42 will decreased sliding scale to medium sliding scale, continue Levemir 15 units BID and premeal 5 units. 5. Tinea infection Bilateral lower extremities, continue fungal cream. 6. Tobacco dependence strongly recommended to stop smoking. 7. Obesity strongly recommended diet and exercise as outpatient. DVT Prophylaxis Heparin Code Status: Full code. Discussed Condition With: Patient, Nurse Miss Skaggs and retirement benefits specialist Doctor Sheree Wan Discharge Planning: Once LifeVest placed and blood sugars in better control.
--- NOTE | 2018-04-06 13:55 | P.DCO ---
- Diagnosis (1) SOB (shortness of breath) Status: Acute (2) DM2 (diabetes mellitus, type 2) Status: Acute (3) Acute exacerbation of CHF (congestive heart failure) Status: Acute (4) Chronic kidney disease Status: Acute - Physical Therapy Order: Evaluate and treat, Improve ambulation, Strength and gait training - Home Health Nursing Order: Medical education, Signs/symptoms of disease process, Diabetic education , Medication education-adverse effect, Nursing assessment with vital signs - Case Management Consult Yes - Certification I have seen patient Jean Carlos Goodman on 04/06/18. My clinical findings support the need for the requested home health care services because: Deconditioned with increased weakness I certify that my clinical findings support that this patient is homebound because: Unsafe to leave home unassisted (3) Acute exacerbation of CHF (congestive heart failure) Qualifiers: Heart failure type: unspecified Qualified Code(s): I50.9 - Heart failure, unspecified (4) Chronic kidney disease Qualifiers: Chronic kidney disease stage: unspecified stage Qualified Code(s): N18.9 - Chronic kidney disease, unspecified
[2018-04-06] MEDS: Lisinopril 5 MG Tablet PO SCH (16:44)
[2018-04-06] MEDS: Heparin - SQ 10,000 UNITS/ML Vial SQ SCH (20:55)
[2018-04-06] MEDS ORDERED: Insulin Detemir Inj 1,000 UNIT/10 ML Vial SQ SCH (21:00)
[2018-04-07] MEDS: Morphine Sulfate Inj 2 MG/ML Vial IV.PUSH PRN (01:11)
[2018-04-07] MEDS: Insulin NovoLOG Aspart Correctional Sugar Inj SQ SCH ×8 (03:44→20:07)
[2018-04-07] MEDS: guaiFENesin/Dextromethorphan 200 MG/20 MG 10 ML UDC PO PRN ×3 (03:45→18:44)
--- NOTE | 2018-04-07 08:23 | P.PNCV ---
- Note Subjective/Hospital Course: 63/ male who has been in and out of the hospital over the past couple of months 4 times. He has been in the ER for the fifth time in the last 2 weeks complaining of marked dyspnea, worsening with exertion and also some intermittent chest discomfort. On his last admission, he had a troponin that was very mildly elevated. He was treated for some heart failure, which was thought to be associated with his severe COPD. He was sent home with oxygen. He was readmitted on the with significant shortness of breath and lower extremity edema. There were some ST changes on his first 2 EKGs. His troponin elevated greater than 40. Patient underwent an echocardiogram previously on his last admission that had an EF of 40%. On this admission, his ejection fraction was less than 20% with some mild to moderate mitral valve regurgitation. The patient has a history of insulin-dependent diabetes and has been somewhat noncompliant. In the past, he has had a HbA1c of 14. His last HbA1c was 11. He states he does take his medication, but not on a regular basis. Apparently, he is also supposed to be on Plavix, which he takes once in a while. He does live alone, has no close family. He does have friends nearby. He underwent cardiac catheterization with multivessel disease showing mid distal LAD 99%, the diagonal 99, the circumflex 100, the OM 70%, the RCA 70%. We were consulted to evaluate for coronary artery bypass grafting. The patient' s risk factors include age, coronary artery disease, peripheral arterial disease , diabetes mellitus, hypertension, noncompliance. PAST MEDICAL HISTORY: Insulin-dependent diabetes uncontrolled, chronic back and neck pain, peripheral arterial disease, chronic kidney disease, COPD, congestive heart failure, recent pulmonary edema, chronic hypoxemia requiring home oxygen, normocytic anemia. 04/02 PFT: Spirometry shows FVC of 1.0 predicted 3.7, FEV1 of 0.8 predicted 3.0, FEV1/ FVC ratio 84% predicted 80%. remains on , await repeat echo on Thursday / remains high risk for surgical candidate 04/07 pt not a candidate for CABG 2/2 poor pulm function / fev1 0.8/ severe COPD noncompliance , recommend maximizing medical therapy / glucose control Objective: Vital Signs - 24 hr 04/06/18 09:00 04/06/18 10:00 04/06/18 11:00 Temperature Pulse Rate 94 H 90 85 Respiratory Rate Blood Pressure Pulse Oximetry 04/06/18 12:00 04/06/18 13:00 04/06/18 13:26 Temperature 98.0 F Pulse Rate 76 72 86 Respiratory Rate 20 18 Blood Pressure 146/80 H Pulse Oximetry 98 04/06/18 14:00 04/06/18 15:00 04/06/18 16:00 Temperature 98.0 F Pulse Rate 74 73 68 Respiratory Rate 20 Blood Pressure 131/78 Pulse Oximetry 98 04/06/18 18:00 04/06/18 19:00 04/06/18 20:00 Temperature 98.5 F Pulse Rate 90 95 H 98 H Respiratory Rate 18 Blood Pressure 140/82 Pulse Oximetry 96 04/06/18 20:24 04/06/18 21:16 04/06/18 23:00 Temperature Pulse Rate 73 65 Respiratory Rate 18 Blood Pressure Pulse Oximetry 98 04/07/18 00:00 04/07/18 01:00 04/07/18 02:00 Temperature Pulse Rate 65 71 68 Respiratory Rate 20 Blood Pressure Pulse Oximetry 04/07/18 03:00 04/07/18 04:00 04/07/18 04:13 Temperature 97.8 F Pulse Rate 71 77 78 Respiratory Rate 20 17 Blood Pressure 132/68 Pulse Oximetry 99 04/07/18 05:00 04/07/18 06:00 04/07/18 07:00 Temperature Pulse Rate 70 67 70 Respiratory Rate Blood Pressure Pulse Oximetry Labs: Laboratory Results - last 12 hr 04/06/18 04/06/18 04/07/18 19:46 20:19 03:30 POC Glucose 229 H 222 H Hemoglobin A1c 10.0 H 04/07/18 07:45 POC Glucose 139 H Hemoglobin A1c Result Diagrams: 03/31/18 07:10 04/06/18 11:00 - Plan (1) CAD (coronary artery disease) Plan: ASA, statin await repeat ECHO FEV1 0.8 ( Poor) (2) DM2 (diabetes mellitus, type 2) Plan: poor home control, some improvement with blood sugars during hospitalization
[2018-04-07] MEDS: Furosemide 40 MG Tablet PO SCH ×2 (08:45→17:18)
[2018-04-07] MEDS: Lisinopril 5 MG Tablet PO SCH (08:49)
[2018-04-07] MEDS: Heparin - SQ 10,000 UNITS/ML Vial SQ SCH ×2 (08:51→20:07)
[2018-04-07] MEDS: Senna/Docusate Sodium 8.6/50 MG Tablet PO SCH ×2 (08:51→20:07)
[2018-04-07] MEDS: Insulin Detemir Inj 1,000 UNIT/10 ML Vial SQ SCH ×2 (08:52→20:07)
[2018-04-07] MEDS: Tiotropium Bromide 18 MCG/ACT Inhaler INH SCH (08:54)
[2018-04-07] MEDS: Carvedilol 12.5 MG Tablet PO SCH ×2 (08:56→20:07)
[2018-04-07] MEDS: Clotrimazole 1% Cream 15 GM Tube TOPICAL SCH ×2 (10:04→20:08)
[2018-04-07 10:25] LABS: Calcium 8.8 mg/dL (8.5-10.1); Carbon Dioxide 33.9 meq/L (21.0-32.0); Potassium 4.3 meq/L (3.5-5.1)
--- NOTE | 2018-04-07 21:59 | P.PNIM ---
Subjective Interval history: Patient complaint of shortness of breath on exertion. He does not have any other complaints. No chest pain. Physical Exam Vital signs: Vital Signs 04/06/18 23:00 04/07/18 00:00 04/07/18 01:00 Temperature Pulse Rate 65 65 71 Respiratory Rate 20 Blood Pressure Pulse Oximetry 04/07/18 02:00 04/07/18 03:00 04/07/18 04:00 Temperature 97.8 F Pulse Rate 68 71 77 Respiratory Rate 20 Blood Pressure 132/68 Pulse Oximetry 99 04/07/18 04:13 04/07/18 05:00 04/07/18 06:00 Temperature Pulse Rate 78 70 67 Respiratory Rate 17 Blood Pressure Pulse Oximetry 04/07/18 07:00 04/07/18 08:00 04/07/18 09:00 Temperature 98.1 F Pulse Rate 70 75 80 Respiratory Rate 18 Blood Pressure 103/60 Pulse Oximetry 96 04/07/18 10:00 04/07/18 11:00 04/07/18 12:00 Temperature 98.0 F 98.0 F Pulse Rate 76 68 67 Respiratory Rate 18 18 Blood Pressure 105/51 L 107/51 L Pulse Oximetry 96 96 04/07/18 12:48 04/07/18 13:00 04/07/18 14:00 Temperature Pulse Rate 82 74 72 Respiratory Rate 18 Blood Pressure Pulse Oximetry 04/07/18 15:00 04/07/18 16:00 04/07/18 17:00 Temperature 98.2 F Pulse Rate 79 76 83 Respiratory Rate 18 Blood Pressure 127/99 H Pulse Oximetry 99 04/07/18 18:00 04/07/18 19:15 04/07/18 19:22 Temperature 98.1 F Pulse Rate 88 83 90 Respiratory Rate 14 25 H Blood Pressure 136/81 Pulse Oximetry 98 98 Intake & Output 04/07/18 04/07/18 04/08/18 06:59 18:59 06:59 Intake Total 920 / 920 Output Total 850 / 850 Balance 70 / 70 Weight 98.5 kg Intake: Oral 920 / 920 Output: Urine 850 / 850 Other: # Voids 4 Date of Last Bowel Movement 04/07/18 # Bowel Movements 1 Narrative: General patient complains of shortness of breath on exertion. HEENT extraocular movements are intact, clear oropharyngeal mucosa, no JVD Cardiovascular S1-S2 audible, no chest pain Respiratory clear to auscultation bilaterally Abdomen soft, nontender, nondistended, normal bowel sounds Extremities no edema 2+ distal pulses in bilateral upper and lower extremities Neuro no neurological deficits. Results - Labs CBC & Chem 7: 03/31/18 07:10 04/07/18 09:33 Laboratory Results - last 24 hr 04/06/18 04/07/18 04/07/18 19:46 03:30 07:45 Sodium Potassium Chloride Carbon Dioxide Anion Gap BUN Creatinine Estimated GFR POC Glucose 222 H 139 H Random Glucose Hemoglobin A1c 10.0 H Calcium 04/07/18 04/07/18 04/07/18 09:33 11:10 15:21 Sodium 139 Potassium 4.3 Chloride 101 Carbon Dioxide 33.9 H Anion Gap 4 L BUN 47 H Creatinine 2.42 H Estimated GFR 27 L POC Glucose 120 H 170 H Random Glucose 112 H D Hemoglobin A1c Calcium 8.8 04/07/18 19:56 Sodium Potassium Chloride Carbon Dioxide Anion Gap BUN Creatinine Estimated GFR POC Glucose 242 H Random Glucose Hemoglobin A1c Calcium - Procedures Cardiac Cath. Assessment and Plan - Plan This patient is a 63-year-old male with a diagnosis of, peripheral arterial disease, diabetes mellitus type 2, hypertension, COPD. Patient was sent from [place] emergency department to the [facility] status post STEMI/CHF and cardiac catheterization on 03/29. 1. STEMI/systolic CHF exacerbation The patient is being followed by the cardiology team as well as cardiothoracic surgery. Patient has a history of noncompliance with medications and presented with a STEMI. His ejection fraction is 20% with acute systolic and diastolic dysfunction. He complains of dyspnea on exertion. Given the patient's multivessel disease initially the plan was for coronary artery bypass graft. As per cardiothoracic surgery the patient is a poor candidate for CABG given his poor pulmonary function and severe COPD. The patient also has a history of noncompliance with medications. They recommend maximizing medical therapy. Once a LifeVest is placed the patient will be discharged. Continue aspirin, statin, beta-ed, Plavix, p.o. Lasix, lisinopril. 2. Diabetes mellitus type 2 Continue Levemir 15 units subcu twice daily, pre-meal coverage, and a low-dose insulin sliding scale. 3. Hypertension/dyslipidemia Continue current blood pressure medication regimen. Patient with current acceptable blood pressure. Continue statin. 4. COPD Continue Spiriva, and albuterol as needed. 5. Acute on chronic kidney disease As per documentation the patient's serum creatinine was 1.7 approximately 1 week ago. If no significant change in the patient's serum creatinine tomorrow we will continue lisinopril, continue p.o. diuretics. Heparin for DVT prophylaxis.
[2018-04-08] MEDS: Insulin NovoLOG Aspart Correctional Sugar Inj SQ SCH ×7 (04:25→17:18)
[2018-04-08] MEDS: Furosemide 40 MG Tablet PO SCH ×2 (05:39→17:18)
[2018-04-08] MEDS: guaiFENesin/Dextromethorphan 200 MG/20 MG 10 ML UDC PO PRN ×2 (05:40→13:32)
[2018-04-08] MEDS: Lisinopril 5 MG Tablet PO SCH (08:27)
[2018-04-08] MEDS: Carvedilol 12.5 MG Tablet PO SCH (08:28)
[2018-04-08] MEDS: Senna/Docusate Sodium 8.6/50 MG Tablet PO SCH (08:28)
[2018-04-08] MEDS: Heparin - SQ 10,000 UNITS/ML Vial SQ SCH (08:28)
[2018-04-08] MEDS: Clotrimazole 1% Cream 15 GM Tube TOPICAL SCH (08:29)
[2018-04-08] MEDS: Tiotropium Bromide 18 MCG/ACT Inhaler INH SCH (08:29)
[2018-04-08] MEDS: Insulin Detemir Inj 1,000 UNIT/10 ML Vial SQ SCH (08:30)
[2018-04-08 08:57] LABS: Calcium 8.4 mg/dL (8.5-10.1); Carbon Dioxide 30.4 meq/L (21.0-32.0); Magnesium 2.3 mg/dL (1.5-2.5); Potassium 4.2 meq/L (3.5-5.1)
--- NOTE | 2018-04-08 18:40 | P.DS ---
Date of admission: 03/28/18 05:43 Primary care physician: UNKNOWN Brief History from admission: 63M with h/o CAD, PAD, DM2, HTN, COPD presents to the ER for the fifth time in the last 2 weeks complaining of marked dyspnea, worsened with exertion and associated with intermittent chest pain. On previous ER visits he had normal troponin levels and was treated for COPD. But at yesterday's visit, his initial troponin was 22.[address] changes evident on the first two EKG's. DS: Medications - Discharge Medications Prescriptions: aspirin 81 mg PO DAILY #60 tab atorvastatin [Lipitor] 80 mg PO HS #60 tab carvedilol [Coreg] 12.5 mg PO BID #60 tab clopidogrel [Plavix] 75 mg PO DAILY #60 tab furosemide [Lasix] 40 mg PO DAILY 30 Days #60 tab lisinopril 2.5 mg PO DAILY #30 tab DS: Summary Hospital Course: This patient is a 63-year-old male with a diagnosis of coronary artery disease, peripheral arterial disease, diabetes mellitus type 2, hypertension, COPD. Patient was sent to our facility from [place] after a STEMI and cardiac catheterization on 03/29/2018. 1. STEMI 2. Systolic CHF exacerbation * He underwent cardiac catheterization with multivessel disease showing mid distal LAD 99%, the diagonal 99, the circumflex 100, the OM 70%, the RCA 70%. We were consulted to evaluate for coronary artery bypass grafting. The patient' s risk factors include age, coronary artery disease, peripheral arterial disease , diabetes mellitus, hypertension, noncompliance.* The patient was admitted and then monitored by the cardiology and cardiothoracic surgery team. As per documentation the patient underwent cardiac catheterization which showed severe multivessel disease. Ejection fraction is 20%. Initially the plan was to have the patient undergo CABG. However given the patient's poor medication noncompliance history and COPD with poor PFTs a coronary artery bypass graft was not recommended. The plan from cardiology and the cardiothoracic surgery team is to maximize medical management. A LifeVest was placed today and the patient will be discharged home. Medication compliance was discussed in detail with the patient. He agrees to take his medications. He has follow-up scheduled with his primary care doctor and he should also follow-up with cardiology outpatient in the next 1-2 weeks. The patient will need regular follow-up with his registered diet technician given his extensive cardiac history. Patient will be continued on aspirin, Plavix, statin, beta-ed, JEREMY inhibitor, Lasix. The patient will be discharged home today with a LifeVest. 3. COPD The patient was advised to not smoke and continue using his inhalers at home. 4. Chronic kidney disease Patient should follow-up with his primary care physician for further management regarding his CKD. The patient's baseline serum creatinine is around 2.2. 5. Diabetes mellitus type 2 Continue home medications for diabetes. The patient should have regular follow- up with his primary care doctor, this way and the patient will have better blood sugar control and his medications can be adjusted as needed. He should also have follow-up with his primary care physician for routine monitoring of his vision, kidney function, foot examinations. - Time Spent with Patient Total time spent providing and/or coordinating discharge services: Greater than 30 minutes - Quality: VTE Deep Vein Thrombosis/Pulmonary Embolism Present on Admission: No Exam Vital signs: Vital Signs 04/07/18 19:00 04/07/18 19:15 04/07/18 19:22 Temperature 98.1 F Pulse Rate 83 83 90 Respiratory Rate 14 25 H Blood Pressure 136/81 Pulse Oximetry 98 98 04/07/18 20:00 04/07/18 21:00 04/07/18 22:00 Temperature Pulse Rate 80 78 80 Respiratory Rate Blood Pressure Pulse Oximetry 96 04/07/18 23:00 04/08/18 00:00 04/08/18 01:00 Temperature 97.9 F Pulse Rate 74 74 73 Respiratory Rate 16 Blood Pressure 141/69 H Pulse Oximetry 98 04/08/18 01:48 04/08/18 02:00 04/08/18 03:00 Temperature Pulse Rate 70 76 74 Respiratory Rate 18 Blood Pressure Pulse Oximetry 04/08/18 04:00 04/08/18 04:26 04/08/18 05:00 Temperature 98 F Pulse Rate 74 81 Respiratory Rate 16 18 Blood Pressure 137/81 Pulse Oximetry 97 04/08/18 06:00 04/08/18 06:04 04/08/18 07:00 Temperature Pulse Rate 77 77 78 Respiratory Rate 20 Blood Pressure Pulse Oximetry 04/08/18 08:00 04/08/18 09:00 04/08/18 10:00 Temperature 98.2 F Pulse Rate 83 81 82 Respiratory Rate 18 Blood Pressure 136/80 Pulse Oximetry 99 04/08/18 11:00 04/08/18 12:00 04/08/18 13:00 Temperature 98.0 F Pulse Rate 77 76 78 Respiratory Rate 18 Blood Pressure 144/81 H Pulse Oximetry 96 04/08/18 14:00 04/08/18 14:25 04/08/18 15:00 Temperature Pulse Rate 79 89 75 Respiratory Rate 18 Blood Pressure Pulse Oximetry 04/08/18 16:00 04/08/18 17:00 04/08/18 18:00 Temperature 98.2 F Pulse Rate 77 86 81 Respiratory Rate 18 Blood Pressure 142/80 H Pulse Oximetry 95 Intake & Output 04/07/18 04/08/18 04/08/18 18:59 06:59 18:59 Intake Total 920 / 920 720 / 720 920 / 920 Output Total 850 / 850 950 / 950 Balance 70 / 70 720 / 720 -30 / -30 Weight 99.1 kg Intake: Oral 920 / 920 720 / 720 920 / 920 Output: Urine 850 / 850 950 / 950 Other: # Voids 3 Date of Last Bowel Movement 04/07/18 # Bowel Movements 1 Narrative: General no complaints of chest pain today. The patient says he does not have any shortness of breath when he ambulates short distances. HEENT extraocular movements are intact, clear oropharyngeal mucosa, no JVD Cardiovascular S1-S2 audible, no chest pain Respiratory clear to auscultation bilaterally Abdomen soft, nontender, nondistended, normal bowel sounds Extremities no edema 2+ distal pulses in bilateral upper and lower extremities Neuro no neurological deficits. Results Procedures completed during hospitalization: Cardiac Cath. Labs on day of discharge: Labs from last 24 hours 04/08/18 04/08/18 04/08/18 14:58 11:48 07:39 Sodium 141 Potassium 4.2 Chloride 102 Carbon Dioxide 30.4 Anion Gap 9 BUN 45 H Creatinine 2.29 H Estimated GFR 29 L POC Glucose 296 H 240 H Random Glucose 136 H Calcium 8.4 L Magnesium 2.3 04/08/18 04/08/18 04/07/18 07:34 03:58 19:56 Sodium Potassium Chloride Carbon Dioxide Anion Gap BUN Creatinine Estimated GFR POC Glucose 146 H 121 H 242 H Random Glucose Calcium Magnesium - Impressions ITS Impressions Chest X-Ray 10/21/18 05:13 CONCLUSION: 1. Mild streaky perihilar opacities which may represent early pulmonary edema. There is no focal consolidation. 2. Apparent minimal effusions. Discharge Plan - Discharge Disposition Patient Disposition: /Home Health Service - Discharge Condition Condition: Stable - Discharge Order Discharge Orders: Discharge Order (Routine); Ordered 04/06/18 Ordered By: Bill Andrews - Discharge Details Anticipated Discharge Date: 04/06/18 Discharge Comment: Follow up with PCP in three days - Physicians Team Primary Care Provider: UNKNOWN, Attending Provider: Lennie Durbin Other Providers: Sheree Wan MD ; Estela Hernandez MD
--- NOTE | 2018-04-13 09:57 | P.CATH ---
- Cardiac Catheterization Procedure Date: 03/30/18 Procedure Note:: Preprocedure Dx: NSTEMI Postprocedure Dx: Severe 3 vessel Disease Procedures Performed: Coronary Angiography via the right common femoral artery Indications: In brief, the patient presented with a NSTEMI. See clinical notes for further details. Description of the Procedure: After discussion of risks, benefits, and alternatives the patient was brought to the lab rn in a non sedated state. He was sterilely prepped and draped in a usual fashion.1% lidocaine solution was used for anesthesia and we placed a 6F sheath into the right radial artery. This was exchanged for a JL 4 to engage the Left Main. Images obtained after contrast dye injection. Findings: Right Coronary: Dominant vessel giving rise to a Posterolateral Branch Artery and a Posterior Descending Artery. This vessel has minimal luminal irregularities present. Left Main: Long moderate caliber vessel which bifurcates into a left anterior descending and a left circumflex. This vessel has mild luminal irregularities. Left Anterior Descending: Small caliber vessel that courses distally to wrap around the apex giving rise to multiple diagonal branches. There is a severe lesion where there is a bifurcation of the first diagonal. The first diagonal also has a severe lesion present. Essentially, there is severe diffuse disease. Uncertain if there is a target for revascularization. Left Circumflex: Moderate caliber vessel that courses within the AV groove to give rise to multiple OM branches. There is a first OM that is completely occluded receiving left to left collaterals. There is a severe lesion in the ongoing circumflex. Procedural Summary: Multivessel CAD Plan: CV Surgery Consult
== END 2018-04-08 19:08 | disposition home health service (06) ==
LOC: PHED 02:20 → PHEDA 05:43 → HCIS 08:22
PROVIDERS: ADMIT Hospitalist; ATTEND Hospitalist

== ENCOUNTER 2018-05-22 11:11 | Inpatient (IN) ==
--- NOTE | 2018-05-22 11:23 | ED ---
HPI General Chief Complaint: Respiratory Symptoms Stated Complaint: Breathing Complaint Time Seen by Provider: 05/22/18 11:17 Source: patient and EMS Mode of arrival: EMS Limitations: no limitations History of Present Illness 63-year-old male patient with history of multiple medical issues, CHF, CT, diabetes, hypertension, presents to the ER today because he has had several days of worsening dyspnea on exertion, chest tightness, and states that he is struggling to breathe. He is on 2 L of home O2. EMS had put him on 4 L. He denies any fevers or other issues. He states that he is getting some more swollen everywhere including his scrotum. Modifying Factors: None Associated Signs & Symptoms: Body swelling, scrotal swelling, dyspnea on exertion, shortness of breath at rest Risk Factors: CHF history Related Data Home Medications Medication Instructions Recorded Confirmed hydrocodone-acetaminophen [Orange] 1 tab PO Q6H 01/15/18 03/28/18 insulin regular human [Humulin R 1 sliding scale dose SUB-Q UD 01/15/18 03/28/18 Regular U-100 Insuln] lidocaine [Lidocaine Pain Relief] 1 patch TOPICAL Q8H 01/15/18 03/28/18 ranitidine HCl [Zantac] 150 mg PO BID 01/15/18 03/28/18 sitagliptin-metformin [Janumet] 1 tab PO DAILY 01/15/18 03/28/18 tamsulosin [Flomax] 0.4 mg PO HS 01/15/18 03/28/18 Previous Rx's Medication Instructions Recorded sodium chloride [[place] Nasal] 1 spray INTRANASAL Q4H #1 ml 01/16/18 ipratropium bromide 0.125 ml/kg INHALATION Q8H #90 ml 03/14/18 ipratropium bromide [Atrovent HFA] 1 puff INHALATION BID #1 g 03/14/18 pregabalin [Lyrica] 75 mg PO BID cap 03/14/18 albuterol sulfate 2.5 mg INHALATION TID-QID PRN #30 03/27/18 each carvedilol [Coreg] 12.5 mg PO BID #60 tab 04/06/18 lisinopril 2.5 mg PO DAILY #30 tab 04/06/18 aspirin 81 mg PO DAILY #60 tab 04/08/18 atorvastatin [Lipitor] 80 mg PO HS #60 tab 04/08/18 clopidogrel [Plavix] 75 mg PO DAILY #60 tab 04/08/18 Allergies Allergy/AdvReac Type Severity Reaction Status Date / Time No Known Allergies Allergy Verified 03/27/18 10:29 Review of Systems ROS: all other systems reviewed are negative [facility] History Provided By: Patient Medical History Medical History COPD (chronic obstructive pulmonary disease) (Acute) Congestive heart failure (Acute) Diabetes (Acute) High cholesterol (Acute) Hypertension (Acute) PAD (peripheral artery disease) (Acute) Surgical History Surgical History H/O vascular surgery (Acute) Social History Social History Substance History: No History of Abuse Second Hand Smoke Exposure: No Smoking Status: Former smoker Tobacco Type: Cigarettes How Often Do You Have a Drink Containing Alcohol: Never Recent Travel in [place] within the Last 8 Weeks: No Recent Out of Country Travel within the Last 8 Weeks: No Exam Narrative Exam Narrative: GENERAL: Well-developed elderly male patient currently in moderate respiratory distress. Awake, oriented x3, speaking 1 word sentences at a time. SKIN: Focused skin assessment warm/dry. HEAD: Atraumatic. Normocephalic. EYES: Pupils equal and round. No scleral icterus. No injection or drainage. ENT: No nasal bleeding or discharge. Mucous membranes pink and moist. NECK: Trachea midline. Supple. CARDIOVASCULAR: Regular rate and rhythm. No murmur appreciated. RESPIRATORY: No accessory muscle use. Clear to auscultation. Breath sounds equal bilaterally. GASTROINTESTINAL: Abdomen soft, non-tender, nondistended. Hepatic and splenic margins not palpable. GENITOURINARY: Circumcised. Significant scrotal edema bilaterally, with scrotums size of large oranges, no lesions or erythema. No urethral discharge. MUSCULOSKELETAL: No obvious deformities. No clubbing. No cyanosis. Tense pitting edema both legs, weeping clear fluid on the legs. NEUROLOGICAL: Awake and alert. No obvious cranial nerve deficits. Motor grossly within normal limits. Normal speech. PSYCHIATRIC: Appropriate mood and affect; insight and judgment normal. Course Initial Documented Vital Signs Pulse Rate 95 H 05/22/18 11:17 Respiratory Rate 22 05/22/18 11:17 Blood Pressure 158/95 H 05/22/18 11:17 Pulse Oximetry 98 05/22/18 11:17 Last Documented Vital Signs Temperature 98.0 F 05/22/18 11:31 Pulse Rate 92 H 05/22/18 11:31 Respiratory Rate 20 05/22/18 11:31 Blood Pressure 161/107 H 05/22/18 11:31 Pulse Oximetry 100 05/22/18 11:53 Medical Decision Making MDM Narrative Medical decision making narrative: Chest x-ray shows significant pulmonary edema , BNP is quite elevated, and patient appears to have significant CHF with exacerbation. Lasix, nitroglycerin, and BiPAP was initiated in the ER. His saturations stabilized and appeared more comfortable on the BiPAP. At this point, my plan would be to admit the patient for further treatment. Case is discussed with family practice resident service for admission. Medical Screen Exam Complete: Yes Emergency Medical Condition: Yes Differential Diagnosis Differential Diagnosis: CHF exacerbation versus pneumonia versus COPD exacerbation Lab Data Lab results reviewed: Yes I reviewed the patient's lab results. Result diagrams: 05/22/18 11:25 05/22/18 11:25 Lab Results 05/22/18 05/22/18 05/22/18 Range/Units 11:25 11:25 11:25 WBC 8.6 (4.0-11.0) th/mm3 RBC 3.43 L (4.50-5.90) mil/mm3 Hgb 10.5 L (13.0-17.0) gm/dL Hct 31.5 L (39.0-51.0) % MCV 91.7 (80.0-100.0) fL MCH 30.5 (27.0-34.0) pg MCHC 33.2 (32.0-36.0) % RDW 15.4 (11.6-17.2) % Plt Count 223 (150-450) th/mm3 MPV 8.1 (7.0-11.0) fL Neut % (Auto) 74.2 H (16.0-70.0) % Lymph % (Auto) 16.5 (9.0-44.0) % [place] % (Auto) 7.7 (0.0-8.0) % Eos % (Auto) 0.9 (0.0-4.0) % Baso % (Auto) 0.7 (0.0-2.0) % Neut # (Auto) 6.4 (1.8-7.7) th/mm3 Lymph # (Auto) 1.4 (1.0-4.8) th/mm3 [place] # (Auto) 0.7 (0.0-0.9) th/mm3 Eos # (Auto) 0.1 (0.0-0.4) th/mm3 Baso # (Auto) 0.1 (0.0-0.2) th/mm3 WBC Differential . Differential Comment Auto diff final Sodium 137 (136-145) meq/L Potassium 5.6 H (3.5-5.1) meq/L Chloride 104 (98-107) meq/L Carbon Dioxide 23.3 (21.0-32.0) meq/L Anion Gap 10 (5-15) meq/L BUN 33 H (7-18) mg/dL Creatinine 1.88 H (0.60-1.30) mg/dL Estimated GFR 37 L (>89) mL/min Random Glucose 457 H* (74-106) mg/dL Calcium 8.1 L (8.5-10.1) mg/dL Total Bilirubin 0.6 (0.2-1.0) mg/dL AST 12 L (15-37) U/L ALT 35 (12-78) U/L Alkaline Phosphatase 258 H (45-117) U/L Troponin I 0.05 (0.02-0.05) ng/mL B-Natriuretic Peptide 1887 H (0-100) pg/mL Total Protein 6.5 (6.4-8.2) g/dL Albumin 2.6 L (3.4-5.0) g/dL Imaging Data Attestation: I personally reviewed and interpreted this imaging study as follows : Radiologist's impression: Chest X-Ray 05/22/18 11:18 CONCLUSION: Radiographic findings consistent with stable appearance of congestive heart failure with progressive bilateral airspace opacities consistent with atelectasis versus airspace consolidation. ECG Data Attestation: I personally reviewed and interpreted this ECG as follows: Interpretation: EKG shows NSR, no ST elevation or depression, and no arrhythmias. No significant T-wave inversions. Discharge Plan Discharge Disposition Patient Disposition: ED Admit(ED Internal Use Only) Discharge Condition Condition: Fair Discharge Order Discharge Orders: ED Use Only Admit Order (Routine); Ordered 05/22/18 Ordered By: Susanne Bishop Discharge Details Anticipated Discharge Date: 05/22/18 Diagnosis: Acute exacerbation of CHF (congestive heart failure) Physicians Team ED Provider: Susanne Bishop Rxs /Orders / Referrals /Forms Prescriptions: No Action lidocaine [Lidocaine Pain Relief] 4 % Adhesive Patch,Medicated 1 patch TOPICAL Q8H RF: 0 tamsulosin [Flomax] 0.4 mg Capsule,Extended Release 24hr 0.4 mg PO HS RF: 0 hydrocodone-acetaminophen [Orange] 7.5-325 mg Tablet 1 tab PO Q6H RF: 0 ranitidine HCl [Zantac] 150 mg Tablet 150 mg PO BID RF: 0 sitagliptin-metformin [Janumet] 50-1,000 mg Tablet 1 tab PO DAILY RF: 0 insulin regular human [Humulin R Regular U-100 Insuln] 100 unit/mL Solution 1 sliding scale dose SUB-Q UD RF: 0 sodium chloride [[place]rence Nasal] 0.65 % Aerosol,[place] 1 spray INTRANASAL Q4H Qty: 1 RF: 0 albuterol sulfate 2.5 mg/0.5 mL solution for nebulization 2.5 mg INHALATION TID-QID PRN (Reason: shortness of breath or wheezing) Qty: 30 RF: 0 pregabalin [Lyrica] 75 mg Capsule 75 mg PO BID RF: 0 ipratropium bromide 0.02 % Solution 0.125 ml/kg INHALATION Q8H Qty: 90 RF: 0 ipratropium bromide [Atrovent HFA] 17 mcg/actuation Hfa Aerosol Inhaler 1 puff INHALATION BID Qty: 1 RF: 1 carvedilol [Coreg] 12.5 mg Tablet 12.5 mg PO BID Qty: 60 RF: 0 lisinopril 5 mg Tablet 2.5 mg PO DAILY Qty: 30 RF: 0 aspirin 81 mg Tablet,Delayed Release (Dr/Ec) 81 mg PO DAILY Qty: 60 RF: 0 atorvastatin [Lipitor] 80 mg Tablet 80 mg PO HS Qty: 60 RF: 0 clopidogrel [Plavix] 75 mg Tablet 75 mg PO DAILY Qty: 60 RF: 0 Discharge Interventions Interventions: Vital Signs Last Done: 05/22/18 11:31 Status ED Status: With Doctor
[2018-05-22 11:33] LABS: Baso # (Auto) 0.1 th/mm3 (0.0-0.2); Baso % (Auto) 0.7 % (0.0-2.0); Eos # (Auto) 0.1 th/mm3 (0.0-0.4); Eos % (Auto) 0.9 % (0.0-4.0); Hematocrit 31.5 % (39.0-51.0); Hemoglobin 10.5 gm/dL (13.0-17.0); Lymph # (Auto) 1.4 th/mm3 (1.0-4.8); Lymph % (Auto) 16.5 % (9.0-44.0); Mean Corpuscular HGB Conc 33.2 % (32.0-36.0); Mean Corpuscular Hemoglobin 30.5 pg (27.0-34.0); Mean Corpuscular Volume 91.7 fL (80.0-100.0); Mean Platelet Volume 8.1 fL (7.0-11.0); Mono # (Auto) 0.7 th/mm3 (0.0-0.9); Mono % (Auto) 7.7 % (0.0-8.0); Neut # (Auto) 6.4 th/mm3 (1.8-7.7); Neut % (Auto) 74.2 % (16.0-70.0); Platelet Count 223 th/mm3 (150-450); Red Blood Count 3.43 mil/mm3 (4.50-5.90); Red Cell Distribution Width 15.4 % (11.6-17.2); White Blood Count 8.6 th/mm3 (4.0-11.0)
--- NOTE | 2018-05-22 11:54 | XR ---
EXAM DATE: 05/22/2018 11:42 AM EST AGE/SEX: 63 years / Male INDICATIONS: Shortness of breath. CLINICAL DATA: This is the patient's initial encounter. Patient reports that signs and symptoms have been present for 1 day and indicates a pain score of 0/10. MEDICAL/SURGICAL HISTORY: . Hypertension. Diabetes mellitus type II. Chronic obstructive pulmon hakan disease. Congestive heart failure. Smoker. Coronary artery stent. . COMPARISON: [facility], CHEST 1V SINGLE AP, 03/28/2018. . FINDINGS: AP portable upright view of the chest demonstrates cardiomegaly with diffuse cephalization of pulmona ry vasculature. Hazy bilateral basilar airspace opacities with obscuration of the hemidiaphragms. CONCLUSION: Radiographic findings consistent with stable appearance of congestive heart failure with progressive bilateral airspace opacities consistent with atelectasis versus airspace consolidation. Electronically signed by: Windy Huertas MD Board Certified Radiologist 05/22/2018 11:52 AM E
[2018-05-22 12:04] LABS: Alanine Aminotransferase 35 U/L (12-78); Albumin 2.6 g/dL (3.4-5.0); Alkaline Phosphatase 258 U/L (45-117); Anion Gap 10 meq/L (5-15); Aspartate Aminotransferase 12 U/L (15-37); Blood Urea Nitrogen 33 mg/dL (7-18); Calcium 8.1 mg/dL (8.5-10.1); Carbon Dioxide 23.3 meq/L (21.0-32.0); Chloride 104 meq/L (98-107); Glomerular Filtration Rate 37 mL/min (>89); Potassium 5.6 meq/L (3.5-5.1); Sodium 137 meq/L (136-145); Total Protein 6.5 g/dL (6.4-8.2); Troponin I 0.05 ng/mL (0.02-0.05)
[2018-05-22 12:08] LABS: Glucose,Random 457 mg/dL (74-106)
--- NOTE | 2018-05-22 13:01 | P.HPFP ---
History of Present Illness Primary Care Physician: Rainer Farooq <FerJose - 05/23/18 11:38> Rainer Farooq <Lissette Hilliard - 05/22/18 13:01> History of Present Illness: Delayed entry, patient was examined independent of the resident team by myself on 05/22/2018 at 13:00. He is a 63-year-old male presenting to the emergency department with progressive dyspnea and edema. He has a known history of significant coronary artery disease and severe congestive heart failure. He states that over the last month he has had significant shortness of breath and for the last week he has been having significant swelling of his legs and lower abdomen, and swelling of his scrotum. He has been unable to lie flat to sleep because of his shortness of breath. He also has been having a significant cough productive of a white, frothy sputum. He has a significant history of congestive heart failure and coronary artery disease. He was hospitalized approximately 6 weeks ago at which time he underwent cardiac catheterization and was found to have severe coronary artery disease. He was evaluated by cardiothoracic surgery who felt that he was too high risk for consideration of revascularization or bypass surgery. His ejection fraction at that time was less than 20% and he was recommended to go out on a cardiac LifeVest, however he states that he did not leave the hospital with a LifeVest due to his being legally blind and unable to properly manage a LifeVest. He does state that he obtained his discharge medications and has been taking them as scheduled, however did not no about a fluid restriction or salt limitation to his diet <Jose Monroe - 05/23/18 11:38> 63 year old male with PMH of CHF, DM2 presents with SOB for the past two days. HPI limited to patient being on BIPAP due to potential intubation in the ED because he was hypoxic. HPI limited to yes or no questions. Patient confirms edema up to his umbilicus that started two days ago. He continued to take his Lasix daily. Today he couldn't breath and so he came in for further evaluation. Sleeps at home with 2 pillows. Pt is unsure of what medications he is on for his diabetes. Patient currently feels better on BIPAP. Patient confirms a cough that has been going on for a couple of months. Productive white sputum. Denies any bloody sputum. Confirms chest pain, unsure of when it started. It is left sided but it has now moved to his lower Left rib. / Left upper quadrant abdominal pain. Sharp pain that is constant. Nothing aggravates or alleviates. Rates the pain a 7 out of 10 in severity. A: NKDA Meds: Reconciled. Surgeries: none Social Hx: Lives in a motel in [place] alone. Quit cigarettes 2 months ago, used to do e cigarettes before. Denies alcohol use. Denies drug use. No recent travel. No sick contacts. Has been hospitalized for CHF in the past. FH: Mom and Dad had DM2. Has no siblings. ROS: Denies any fevers, night sweats. Confirms normal urination frequency and amount but states he has a hard time starting a stream and confirms nocturia x5 .Confirms weight gain 20 lbs in the past month. <Lissette Hilliard - 05/22/18 17:50> - Diagnosis (1) Acute exacerbation of CHF (congestive heart failure) (2) SOB (shortness of breath) (3) CAD (coronary artery disease) (4) Chest pain (5) DM2 (diabetes mellitus, type 2) (6) Edema (7) Hyperglycemia (8) HTN (hypertension) (9) Chronic kidney disease (10) Nutrition, metabolism, and development symptoms <Jose Monroe - 05/23/18 11:38> (1) Acute exacerbation of CHF (congestive heart failure) (2) SOB (shortness of breath) (3) CAD (coronary artery disease) (4) Chest pain (5) DM2 (diabetes mellitus, type 2) (6) Edema (7) Hyperglycemia (8) HTN (hypertension) (9) Chronic kidney disease (10) Nutrition, metabolism, and development symptoms <Lissette Hilliard - 05/22/18 17:59> Inpatient Certification: I certify that the inpatient services were ordered in accordance with Medicare regulations governing the order. This includes certification that hospital inpatient services are reasonable and necessary and in the case of services not specified as inpatient-only under 42 CFR 419.22(n), that they are appropriately provided as inpatient services in accordance to with the 2-midnight benchmark under 43 CFR 412.3(e) <Jose Monroe - 05/23/18 11:38> I certify that the inpatient services were ordered in accordance with Medicare regulations governing the order. This includes certification that hospital inpatient services are reasonable and necessary and in the case of services not specified as inpatient-only under 42 CFR 419.22(n), that they are appropriately provided as inpatient services in accordance to with the 2-midnight benchmark under 43 CFR 412.3(e) <ArmindaLissette - 05/22/18 13:01> [facility] - History History Provided By: Patient <Lissette Hilliard - 05/22/18 13:01> - Medical History Medical History: Medical History (Last Reviewed 05/22/18 @ 11:21 by Susanne Bishop MD) COPD (chronic obstructive pulmonary disease) Congestive heart failure Diabetes High cholesterol Hypertension PAD (peripheral artery disease) <Jose Monroe 05/23/18 11:38> Medical History (Last Reviewed 05/22/18 @ 11:21 by Susanne Bishop MD) COPD (chronic obstructive pulmonary disease) Congestive heart failure Diabetes High cholesterol Hypertension PAD (peripheral artery disease) <Lissette Hilliard 05/22/18 13:01> - Surgical History Surgical History: Surgical History (Last Reviewed 05/22/18 @ 11:21 by Susanne Bishop MD) H/O vascular surgery <Jose Monroe 05/23/18 11:38> Surgical History (Last Reviewed 05/22/18 @ 11:21 by Susanne Bishop MD) H/O vascular surgery <Lissette Hilliard 05/22/18 13:01> - Family History Family History: Family History (Last Reviewed 03/28/18 @ 05:22 by Felisha Kelley MD) Other Diabetes <Jose Monroe - 05/23/18 11:38> Family History (Last Reviewed 03/28/18 @ 05:22 by Felisha Kelley MD) Other Diabetes <Lissette Hilliard - 05/22/18 13:01> - Tobacco History Second Hand Smoke Exposure: No <Lissette Hilliard - 05/22/18 13:01> Tobacco Use In Past 30 Days: No <Lissette Hilliard 05/22/18 13:01> Smoking Status: Former smoker <Lissette Hilliard - 05/22/18 13:01> Tobacco Type: Cigarettes <Lissette Hilliard - 05/22/18 13:01> - Alcohol History How Often Do You Have a Drink Containing Alcohol: Never <Lissette Hilliard - 13:01> - Substance Use History Substance History: No History of Abuse <NasimamandiLissette gutierrez - 05/22/18 13:01> - Travel History Recent Travel in the [facility] Within the Last 8 Weeks: No <NasimamandimattLissette - 13:01> Recent Travel Out of the Country Within the Last 8 Weeks: No <NasimamandiMisha gutierrezLissette - 05/22/18 13:01> - Immunization History Tetanus Immunization: Unsure <NasimamandimattLissette - 05/22/18 13:01> Medications and Allergies Allergies Allergy/AdvReac Type Severity Reaction Status Date / Time No Known Allergies Allergy Verified 03/27/18 10:29 <Jose Monroe - 05/23/18 11:38> Home Medications Medication Instructions Recorded Confirmed Type hydrocodone-acetaminophen [Hawley] 1 tab PO Q6H 01/15/18 05/22/18 History insulin regular human [Humulin R 1 sliding scale dose SUB-Q UD 01/15/18 History Regular U-100 Insuln] lidocaine [Lidocaine Pain Relief] 1 patch TOPICAL Q8H 01/15/18 05/22/18 History ranitidine HCl [Zantac] 150 mg PO BID 01/15/18 05/22/18 History sitagliptin-metformin [Janumet] 1 tab PO DAILY 01/15/18 05/22/18 History tamsulosin [Flomax] 0.4 mg PO HS 01/15/18 05/22/18 History <Jose Monroe - 05/23/18 11:38> Active Medications: Active Medications Acetaminophen (Tylenol) 650 mg PO Q4H PRN PRN Reason: Temp > 100.4, Pain scale 1-2 Hydrocodone Bitart/Acetaminophen (Hawley 10/325) 1 tab PO Q6H PRN PRN Reason: Pain scale 3-10 Last Admin: 05/23/18 09:16 Dose: 1 tab Al Hydroxide/Mg Hydroxide (Milk Of Magncheri Liq) 30 ml PO Q12H PRN PRN Reason: Mild Constipation Aspirin (Ecotrin) 81 mg PO DAILY [facility] Last Admin: 05/23/18 09:16 Dose: 81 mg Atorvastatin Calcium (Lipitor) 80 mg PO HS [facility] Last Admin: 05/22/18 20:55 Dose: 80 mg Bisacodyl (Dulcolax Supp) 10 mg RECTAL DAILY PRN PRN Reason: SEVERE CONSITIPATION Carvedilol (Coreg) 12.5 mg PO BID [facility] Last Admin: 05/23/18 09:16 Dose: 12.5 mg Clopidogrel Bisulfate (Plavix) 75 mg PO DAILY [facility] Last Admin: 05/23/18 09:16 Dose: 75 mg Dextrose (D50w Vial) 50 ml IV.PUSH UNSCH PRN PRN Reason: PER HYPOGLYCEMIA PROTOCOL Enoxaparin Sodium (Lovenox Inj) 30 mg SQ DAILY [facility] Last Admin: 05/23/18 09:14 Dose: 30 mg Famotidine (Pepcid) 10 mg PO BID [facility] Last Admin: 05/23/18 09:15 Dose: 10 mg Furosemide (Lasix Inj) 40 mg IV.PUSH BID@0900,1800 [facility] Last Admin: 05/23/18 09:15 Dose: 40 mg Glucagon (Glucagon Inj) 1 mg OTHER PRN PRN PRN Reason: for Hypoglycemia Protocol Insulin Aspart (Novolog Insulin Correctional Sugar Inj) 0 unit SQ ACHS AND 3AM [place]; Protocol Last Admin: 05/23/18 09:16 Dose: Not Given Insulin Detemir (Levemir Inj) 20 unit SQ BID [facility] Last Admin: 05/23/18 09:17 Dose: 20 unit Lactulose (Lactulose Liq) 30 ml PO DAILY PRN PRN Reason: SEVERE CONSITIPATION Lisinopril (Prinivil) 2.5 mg PO DAILY [facility] Last Admin: 05/23/18 09:14 Dose: 2.5 mg Ondansetron HCl (Zofran Inj) 4 mg IV.PUSH Q6H PRN PRN Reason: NAUSEA OR VOMITING Pregabalin (Lyrica) 75 mg PO BID [facility] Last Admin: 05/23/18 09:16 Dose: 75 mg Senna/Docusate Sodium (Abiola-Colace) 1 tab PO BID [facility] Last Admin: 05/23/18 09:15 Dose: 1 tab Sennosides (Senokot) 17.2 mg PO Q12H PRN PRN Reason: Moderate Constipation Sodium Chloride (Ns Flush) 2 ml IV.FLUSH PRN PRN PRN Reason: FLUSH AFTER USING IV ACCESS Sodium Chloride (Ns Flush) 2 ml IV.FLUSH BID [facility] Last Admin: 05/23/18 09:17 Dose: 2 ml Tamsulosin HCl (Flomax) 0.4 mg PO HS [facility] Last Admin: 05/22/18 21:34 Dose: 0.4 mg Tiotropium [place] (Spiriva 18 Mcg Inh) 18 mcg INH DAILY [facility] Last Admin: 05/22/18 16:01 Dose: 18 mcg <Fer,Jose - 05/23/18 11:38> Exam Vital signs: Vital Signs 05/22/18 11:53 05/22/18 14:00 05/22/18 16:00 Temperature 98.7 F Pulse Rate 82 84 Respiratory Rate 20 20 Blood Pressure 153/77 H 152/78 H Pulse Oximetry 100 100 98 05/22/18 17:00 05/22/18 18:00 05/22/18 19:00 Temperature Pulse Rate 85 83 87 Respiratory Rate Blood Pressure Pulse Oximetry 05/22/18 20:00 05/22/18 21:00 05/22/18 21:01 Temperature 98.2 F Pulse Rate 78 82 Respiratory Rate 20 Blood Pressure 140/71 Pulse Oximetry 100 100 05/22/18 22:00 05/22/18 22:42 05/23/18 00:00 Temperature 97.7 F Pulse Rate 78 78 Respiratory Rate 18 Blood Pressure 143/57 H Pulse Oximetry 98 100 05/23/18 01:00 05/23/18 01:38 05/23/18 02:00 Temperature Pulse Rate 76 70 Respiratory Rate Blood Pressure Pulse Oximetry 100 05/23/18 03:00 05/23/18 04:00 05/23/18 04:30 Temperature 98.0 F Pulse Rate 76 74 Respiratory Rate 18 Blood Pressure 155/87 H Pulse Oximetry 100 98 05/23/18 05:00 05/23/18 06:00 Temperature Pulse Rate 72 79 Respiratory Rate Blood Pressure Pulse Oximetry Intake & Output 05/22/18 05/23/18 05/23/18 18:59 06:59 18:59 Output Total 1100 / 1100 Balance -1100 / -1100 Weight 104.326 kg 106 kg Output: Urine Amount (Catheter) 1100 / 1100 Indwelling Urethral Catheter 1100 / 1100 Other: Date of Last Bowel Movement 05/22/18 <Jose Monroe - 05/23/18 11:38> Vital Signs 05/22/18 11:17 05/22/18 11:18 05/22/18 11:31 Temperature 98.0 F Pulse Rate 95 H 93 H 92 H Respiratory Rate 22 20 Blood Pressure 158/95 H 161/107 H Pulse Oximetry 98 98 100 05/22/18 11:33 05/22/18 11:53 Temperature Pulse Rate Respiratory Rate Blood Pressure Pulse Oximetry 100 100 Intake & Output 05/21/18 05/22/18 05/22/18 18:59 06:59 18:59 Weight 104.326 kg <Lissette Hilliard - 05/22/18 13:01> Narrative: General: Obese male currently on BiPAP, moderately irritated and anxious Cardiovascular: Regular rate and rhythm without murmur Respiratory: Diffuse bibasilar crackles Extremities: 2+ pitting edema up to umbilicus on the abdomen, significantly swollen scrotum <Jose Monroe - 05/23/18 11:38> GENERAL: Obese appearing male, sitting in bed on BiPAP, increased work of breathing. Alert and oriented to person place and time. SKIN: Warm and dry. HEAD: Normocephalic. EYES: No scleral icterus. No injection or drainage. NECK: Supple, trachea midline. No JVD or lymphadenopathy. CARDIOVASCULAR: Regular rate and rhythm without murmurs, gallops, or rubs. RESPIRATORY: Diffuse crackles heard bilaterally in all lung watkins. GASTROINTESTINAL: Abdomen distended. Bowel sounds present. No pain to palpation. MUSCULOSKELETAL: No cyanosis. 2+ pitting edema bilaterally. : Scrotal swelling bilaterally. <Lissette Hilliard - 05/22/18 17:50> Results - Labs Result diagrams: 05/23/18 01:09 05/23/18 01:09 <Jose Monroe - 05/23/18 11:38> Abnormal lab results 05/22/18 05/22/18 05/22/18 Range/Units 11:25 11:25 11:25 RBC 3.43 L (4.50-5.90) mil/mm3 Hgb 10.5 L (13.0-17.0) gm/dL Hct 31.5 L (39.0-51.0) % Neut % (Auto) 74.2 H (16.0-70.0) % [place] % (Auto) (0.0-8.0) % O2 Saturation (90-100) % ABG pH (7.380-7.420) ABG pCO2 (38-42) mmHg ABG pO2 (61-120) mmHG ABG HCO3 (22-26) mmol/L ABG O2 Content (12.0-20.0) Vol % ABG Base Excess (-2-2) mmol/L Hemoglobin (12.0-16.0) G/DL Potassium 5.6 H (3.5-5.1) meq/L Anion Gap (5-15) meq/L BUN 33 H (7-18) mg/dL Creatinine 1.88 H (0.60-1.30) mg/dL Estimated GFR 37 L (>89) mL/min POC Glucose (68-110) mg/dl Random Glucose 457 H* (74-106) mg/dL Calcium 8.1 L (8.5-10.1) mg/dL AST 12 L (15-37) U/L Alkaline Phosphatase 258 H (45-117) U/L Troponin I (0.02-0.05) ng/mL B-Natriuretic Peptide 1887 H (0-100) pg/mL Total Protein (6.4-8.2) g/dL Albumin 2.6 L (3.4-5.0) g/dL Urine Clarity (Clear) Urine Protein (Neg-Trace) mg/dL Urine Ketones (Negative) mg/dL Urine Occult Blood (Negative) Amorphous Sediment (None) /hpf Urine Mucus (Occasional) /lpf 05/22/18 05/22/18 05/22/18 Range/Units 14:39 14:40 17:31 RBC (4.50-5.90) mil/mm3 Hgb (13.0-17.0) gm/dL Hct (39.0-51.0) % Neut % (Auto) (16.0-70.0) % [place] % (Auto) (0.0-8.0) % O2 Saturation (90-100) % ABG pH (7.380-7.420) ABG pCO2 (38-42) mmHg ABG pO2 (61-120) mmHG ABG HCO3 (22-26) mmol/L ABG O2 Content (12.0-20.0) Vol % ABG Base Excess (-2-2) mmol/L Hemoglobin (12.0-16.0) G/DL Potassium (3.5-5.1) meq/L Anion Gap (5-15) meq/L BUN (7-18) mg/dL Creatinine (0.60-1.30) mg/dL Estimated GFR (>89) mL/min POC Glucose 416 H 322 H (68-110) mg/dl Random Glucose (74-106) mg/dL Calcium (8.5-10.1) mg/dL AST (15-37) U/L Alkaline Phosphatase (45-117) U/L Troponin I (0.02-0.05) ng/mL B-Natriuretic Peptide (0-100) pg/mL Total Protein (6.4-8.2) g/dL Albumin (3.4-5.0) g/dL Urine Clarity Hazy H (Clear) Urine Protein 100 H (Neg-Trace) mg/dL Urine Ketones Trace H (Negative) mg/dL Urine Occult Blood Small H (Negative) Amorphous Sediment Moderate H (None) /hpf Urine Mucus Few H (Occasional) /lpf 05/22/18 05/22/18 05/22/18 Range/Units 18:36 18:55 21:37 RBC (4.50-5.90) mil/mm3 Hgb (13.0-17.0) gm/dL Hct (39.0-51.0) % Neut % (Auto) (16.0-70.0) % [place] % (Auto) (0.0-8.0) % O2 Saturation 76 L* (90-100) % ABG pH 7.33 L (7.380-7.420) ABG pCO2 54 H* (38-42) mmHg ABG pO2 48 L* (61-120) mmHG ABG HCO3 28 H (22-26) mmol/L ABG O2 Content 9.9 L (12.0-20.0) Vol % ABG Base Excess 2.4 H (-2-2) mmol/L Hemoglobin 9.2 L (12.0-16.0) G/DL Potassium (3.5-5.1) meq/L Anion Gap (5-15) meq/L BUN (7-18) mg/dL Creatinine (0.60-1.30) mg/dL Estimated GFR (>89) mL/min POC Glucose 237 H (68-110) mg/dl Random Glucose (74-106) mg/dL Calcium (8.5-10.1) mg/dL AST (15-37) U/L Alkaline Phosphatase (45-117) U/L Troponin I 0.45 H (0.02-0.05) ng/mL B-Natriuretic Peptide (0-100) pg/mL Total Protein (6.4-8.2) g/dL Albumin (3.4-5.0) g/dL Urine Clarity (Clear) Urine Protein (Neg-Trace) mg/dL Urine Ketones (Negative) mg/dL Urine Occult Blood (Negative) Amorphous Sediment (None) /hpf Urine Mucus (Occasional) /lpf 05/23/18 05/23/18 05/23/18 Range/Units 01:09 01:09 01:09 RBC 3.17 L (4.50-5.90) mil/mm3 Hgb 9.4 L (13.0-17.0) gm/dL Hct 28.0 L (39.0-51.0) % Neut % (Auto) (16.0-70.0) % [place] % (Auto) 11.3 H (0.0-8.0) % O2 Saturation (90-100) % ABG pH (7.380-7.420) ABG pCO2 (38-42) mmHg ABG pO2 (61-120) mmHG ABG HCO3 (22-26) mmol/L ABG O2 Content (12.0-20.0) Vol % ABG Base Excess (-2-2) mmol/L Hemoglobin (12.0-16.0) G/DL Potassium (3.5-5.1) meq/L Anion Gap 4 L (5-15) meq/L BUN 38 H (7-18) mg/dL Creatinine 2.17 H (0.60-1.30) mg/dL Estimated GFR 31 L (>89) mL/min POC Glucose (68-110) mg/dl Random Glucose 187 H D (74-106) mg/dL Calcium 8.1 L (8.5-10.1) mg/dL AST 9 L (15-37) U/L Alkaline Phosphatase 205 H (45-117) U/L Troponin I 0.41 H (0.02-0.05) ng/mL B-Natriuretic Peptide (0-100) pg/mL Total Protein 5.5 L D (6.4-8.2) g/dL Albumin 2.1 L (3.4-5.0) g/dL Urine Clarity (Clear) Urine Protein (Neg-Trace) mg/dL Urine Ketones (Negative) mg/dL Urine Occult Blood (Negative) Amorphous Sediment (None) /hpf Urine Mucus (Occasional) /lpf 05/23/18 05/23/18 05/23/18 Range/Units 01:09 02:53 08:35 RBC (4.50-5.90) mil/mm3 Hgb (13.0-17.0) gm/dL Hct (39.0-51.0) % Neut % (Auto) (16.0-70.0) % [place] % (Auto) (0.0-8.0) % O2 Saturation (90-100) % ABG pH (7.380-7.420) ABG pCO2 (38-42) mmHg ABG pO2 (61-120) mmHG ABG HCO3 (22-26) mmol/L ABG O2 Content (12.0-20.0) Vol % ABG Base Excess (-2-2) mmol/L Hemoglobin (12.0-16.0) G/DL Potassium (3.5-5.1) meq/L Anion Gap (5-15) meq/L BUN (7-18) mg/dL Creatinine (0.60-1.30) mg/dL Estimated GFR (>89) mL/min POC Glucose 173 H 139 H (68-110) mg/dl Random Glucose (74-106) mg/dL Calcium (8.5-10.1) mg/dL AST (15-37) U/L Alkaline Phosphatase (45-117) U/L Troponin I (0.02-0.05) ng/mL B-Natriuretic Peptide 2102 H (0-100) pg/mL Total Protein (6.4-8.2) g/dL Albumin (3.4-5.0) g/dL Urine Clarity (Clear) Urine Protein (Neg-Trace) mg/dL Urine Ketones (Negative) mg/dL Urine Occult Blood (Negative) Amorphous Sediment (None) /hpf Urine Mucus (Occasional) /lpf Short CBC 05/22/18 05/23/18 Range/Units 11:25 01:09 WBC 8.6 8.1 (4.0-11.0) th/mm3 Hgb 10.5 L 9.4 L (13.0-17.0) gm/dL Hct 31.5 L 28.0 L (39.0-51.0) % Plt Count 223 228 (150-450) th/mm3 BMP 05/22/18 05/23/18 11:25 01:09 Sodium 137 142 Potassium 5.6 H 4.3 D Chloride 104 107 Carbon Dioxide 23.3 30.7 BUN 33 H 38 H Creatinine 1.88 H 2.17 H Calcium 8.1 L 8.1 L Cardiac Enzymes 05/22/18 05/22/18 05/23/18 Range/Units 11:25 18:55 01:09 Troponin I 0.05 0.45 H 0.41 H (0.02-0.05) ng/mL Liver Function 05/22/18 05/23/18 Range/Units 11:25 01:09 Total Bilirubin 0.6 0.3 (0.2-1.0) mg/dL AST 12 L 9 L (15-37) U/L ALT 35 25 (12-78) U/L Alkaline Phosphatase 258 H 205 H (45-117) U/L Albumin 2.6 L 2.1 L (3.4-5.0) g/dL Urine 05/22/18 Range/Units 14:40 Urine Color Yellow (Yellw/Straw) Urine Clarity Hazy H (Clear) Urine pH 5.0 (5.0-8.5) Ur Specific [place] 1.009 (1.002-1.035) Urine Protein 100 H (Neg-Trace) mg/dL Urine Glucose (UA) 500 or greater (Negative) mg/dL <Jose Monroe - 05/23/18 11:38> Abnormal lab results 05/22/18 05/22/18 05/22/18 Range/Units 11:25 11:25 11:25 RBC 3.43 L (4.50-5.90) mil/mm3 Hgb 10.5 L (13.0-17.0) gm/dL Hct 31.5 L (39.0-51.0) % Neut % (Auto) 74.2 H (16.0-70.0) % Potassium 5.6 H (3.5-5.1) meq/L BUN 33 H (7-18) mg/dL Creatinine 1.88 H (0.60-1.30) mg/dL Estimated GFR 37 L (>89) mL/min Random Glucose 457 H* (74-106) mg/dL Calcium 8.1 L (8.5-10.1) mg/dL AST 12 L (15-37) U/L Alkaline Phosphatase 258 H (45-117) U/L B-Natriuretic Peptide 1887 H (0-100) pg/mL Albumin 2.6 L (3.4-5.0) g/dL Short CBC 05/22/18 Range/Units 11:25 WBC 8.6 (4.0-11.0) th/mm3 Hgb 10.5 L (13.0-17.0) gm/dL Hct 31.5 L (39.0-51.0) % Plt Count 223 (150-450) th/mm3 BMP 05/22/18 11:25 Sodium 137 Potassium 5.6 H Chloride 104 Carbon Dioxide 23.3 BUN 33 H Creatinine 1.88 H Calcium 8.1 L Cardiac Enzymes 05/22/18 Range/Units 11:25 Troponin I 0.05 (0.02-0.05) ng/mL Liver Function 05/22/18 Range/Units 11:25 Total Bilirubin 0.6 (0.2-1.0) mg/dL AST 12 L (15-37) U/L ALT 35 (12-78) U/L Alkaline Phosphatase 258 H (45-117) U/L Albumin 2.6 L (3.4-5.0) g/dL <Lissette Hilliard - 05/22/18 13:01> - Imaging Impressions Chest X-Ray 05/22/18 11:18 CONCLUSION: Radiographic findings consistent with stable appearance of congestive heart failure with progressive bilateral airspace opacities consistent with atelectasis versus airspace consolidation. Chest X-Ray 05/23/18 06:00 CONCLUSION: Stable appearance of congestive heart failure with pulmonary edema and bilateral pleural effusions. <Jose Monroe - 05/23/18 11:38> Impressions Chest X-Ray 05/22/18 11:18 CONCLUSION: Radiographic findings consistent with stable appearance of congestive heart failure with progressive bilateral airspace opacities consistent with atelectasis versus airspace consolidation. <Lissette Hilliard - 05/22/18 13:01> Kennedii VTE Risk Assessment Theodorerini VTE Risk Assessment: Moderate/High Risk (score >= 2) <Lissette Hilliard - 05/22/18 17:59> Ney Risk Assessment Model: Point Value = 1 Point Value = 2 Point Value = 3 Point Value = 5 Age 41-60 Minor surgery BMI > 25 kg/m2 Swollen legs Varicose veins or History of unexplained or recurrent spontaneous Oral contraceptives or hormone replacement Sepsis (< 1 month) Serious lung disease, including pneumonia (< 1 month) Abnormal pulmonary function Acute myocardial infarction Congestive heart failure (< 1 month) History of inflammatory bowel disease Medical patient at bed rest Age 61-74 Arthroscopic surgery Major open surgery (> 45 min) Laparoscopic surgery (> 45 min) Malignancy Confined to bed (> 72 hours) Immobilizing plaster cast Central venous access Age >= 75 History of VTE Family history of VTE Factor V Leiden Prothrombin [id number] Lupus anticoagulant Anticardiolipin antibodies Elevated serum homocysteine Heparin-induced thrombocytopenia Other congenital or acquired thrombophilia Stroke (< 1 month) Elective arthroplasty Hip, pelvis, or leg fracture Acute spinal cord injury (< 1 month) <Jose Monroe - 05/23/18 11:38> Point Value = 1 Point Value = 2 Point Value = 3 Point Value = 5 Age 41-60 Minor surgery BMI > 25 kg/m2 Swollen legs Varicose veins or History of unexplained or recurrent spontaneous Oral contraceptives or hormone replacement Sepsis (< 1 month) Serious lung disease, including pneumonia (< 1 month) Abnormal pulmonary function Acute myocardial infarction Congestive heart failure (< 1 month) History of inflammatory bowel disease Medical patient at bed rest Age 61-74 Arthroscopic surgery Major open surgery (> 45 min) Laparoscopic surgery (> 45 min) Malignancy Confined to bed (> 72 hours) Immobilizing plaster cast Central venous access Age >= 75 History of VTE Family history of VTE Factor V Leiden Prothrombin [id number] Lupus anticoagulant Anticardiolipin antibodies Elevated serum homocysteine Heparin-induced thrombocytopenia Other congenital or acquired thrombophilia Stroke (< 1 month) Elective arthroplasty Hip, pelvis, or leg fracture Acute spinal cord injury (< 1 month) <Lissette Hilliard - 05/22/18 13:01> Prophylaxis Regimen: Total Risk Factor Score Risk Level Prophylaxis Regimen 0-1 Low Early ambulation 2 Moderate Order ONE of the following: *Sequential Compression Device (SCD) *Heparin 5000 units SQ BID 3-4 Higher Order ONE of the following medications: *Heparin 5000 units SQ TID *Enoxaparin/Lovenox 40 mg SQ daily (WT < 150 kg, CrCl > 30 mL/min) *Enoxaparin/Lovenox 30 mg SQ daily (WT < 150 kg, CrCl > 10-29 mL/min) *Enoxaparin/Lovenox 30 mg SQ BID (WT < 150 kg, CrCl > 30 mL/min) AND/OR *Sequential Compression Device (SCD) 5 or more Highest Order ONE of the following medications: *Heparin 5000 units SQ TID (Preferred with Epidurals) *Enoxaparin/Lovenox 40 mg SQ daily (WT < 150 kg, CrCl > 30 mL/min) *Enoxaparin/Lovenox 30 mg SQ daily (WT < 150 kg, CrCl > 10-29 mL/min) *Enoxaparin/Lovenox 30 mg SQ BID (WT < 150 kg, CrCl > 30 mL/min) AND *Sequential Compression Device (SCD) <Jose Monroe - 05/23/18 11:38> Total Risk Factor Score Risk Level Prophylaxis Regimen 0-1 Low Early ambulation 2 Moderate Order ONE of the following: *Sequential Compression Device (SCD) *Heparin 5000 units SQ BID 3-4 Higher Order ONE of the following medications: *Heparin 5000 units SQ TID *Enoxaparin/Lovenox 40 mg SQ daily (WT < 150 kg, CrCl > 30 mL/min) *Enoxaparin/Lovenox 30 mg SQ daily (WT < 150 kg, CrCl > 10-29 mL/min) *Enoxaparin/Lovenox 30 mg SQ BID (WT < 150 kg, CrCl > 30 mL/min) AND/OR *Sequential Compression Device (SCD) 5 or more Highest Order ONE of the following medications: *Heparin 5000 units SQ TID (Preferred with Epidurals) *Enoxaparin/Lovenox 40 mg SQ daily (WT < 150 kg, CrCl > 30 mL/min) *Enoxaparin/Lovenox 30 mg SQ daily (WT < 150 kg, CrCl > 10-29 mL/min) *Enoxaparin/Lovenox 30 mg SQ BID (WT < 150 kg, CrCl > 30 mL/min) AND *Sequential Compression Device (SCD) <ArmindaLissette - 05/22/18 13:01> Assessment and Plan - Assessment (1) Acute exacerbation of CHF (congestive heart failure) Code(s): I50.9 - Heart failure, unspecified Status: Acute (2) SOB (shortness of breath) Code(s): R06.02 - Shortness of breath Status: Acute (3) CAD (coronary artery disease) Code(s): I25.10 - Atherosclerotic heart disease of [place] coronary artery without angina pectoris Status: Acute (4) Chest pain Code(s): R07.9 - Chest pain, unspecified Status: Acute (5) DM2 (diabetes mellitus, type 2) Code(s): E11.9 - Type 2 diabetes mellitus without complications Status: Acute (6) Edema Code(s): R60.9 - Edema, unspecified Status: Acute (7) Hyperglycemia Code(s): R73.9 - Hyperglycemia, unspecified Status: Acute (8) HTN (hypertension) Code(s): I10 - Essential (primary) hypertension Status: Acute (9) Chronic kidney disease Code(s): N18.9 - Chronic kidney disease, unspecified Status: Acute (10) Nutrition, metabolism, and development symptoms Code(s): R63.8 - Other symptoms and signs concerning food and fluid intake Status: Acute <Jose Monroe - 05/23/18 11:38> (1) Acute exacerbation of CHF (congestive heart failure) Code(s): I50.9 - Heart failure, unspecified Status: Acute Plan: Patient acutely short of breath for the past 3 days. Physical exam remarkable for bilateral crackles throughout all lung watkins. Distended abdomen with scrotal and pedal edema bilaterally Echocardiogram done in March shows less than 20% ejection fraction. LifeVest ordered but ever received per patient. Cardiology consulted. BNP: 1887. Repeat BMP in a.m Chest x-ray reveals: Stable appearance of congestive heart failure with progressive bilateral airspace opacities consistent with atelectasis versus airspace consolidation. Repeat chest x-ray in a.m. 1 dose of Lasix 40 mg given in the ED. Patient still edematous with bilateral crackles. Will increase to 40 mg IV Lasix twice daily. Strict monitor I's and O's. Weigh Daily. Fluid restrict 1.5 L. Salt restrict: 2- 3 gram sodium diet. (2) SOB (shortness of breath) Code(s): R06.02 - Shortness of breath Status: Acute Plan: Patient acutely short of breath on admission. BiPAP ordered. Exam consistent with bilateral crackles throughout all lung watkins. Concerning for fluid overload. ABG ordered be done after BiPAP. Continue Atrovent twice daily Albuterol as needed. (3) CAD (coronary artery disease) Code(s): I25.10 - Atherosclerotic heart disease of [place] coronary artery without angina pectoris Status: Acute Plan: Patient with history of previous SD. Continue aspirin and Plavix. (4) Chest pain Code(s): R07.9 - Chest pain, unspecified Status: Acute Plan: Patient endorses left-sided chest pain. Previous history of SD. Initial troponin negative. Continue to trend troponin. Trend EKGs. Continuous telemetry. (5) DM2 (diabetes mellitus, type 2) Code(s): E11.9 - Type 2 diabetes mellitus without complications Status: Acute Plan: Patient was discharged home on Levemir U-100 insulin 20 units twice daily. Will continue in hospital. Medium dose sliding scale. (6) Edema Code(s): R60.9 - Edema, unspecified Status: Acute Plan: See CHF plan above. (7) Hyperglycemia Code(s): R73.9 - Hyperglycemia, unspecified Status: Acute Plan: See diabetes plan. (8) HTN (hypertension) Code(s): I10 - Essential (primary) hypertension Status: Acute Plan: Patient hypertensive on admission at 158/95, 161/107. Patient did receive at any a.m. medications. will continue with carvedilol 12.5 mg twice daily Lisinopril 2.5 mg daily. (9) Chronic kidney disease Code(s): N18.9 - Chronic kidney disease, unspecified Status: Acute Plan: Improving from previous admissions. Creatinine: 1.88. Trend in a.m. (10) Nutrition, metabolism, and development symptoms Code(s): R63.8 - Other symptoms and signs concerning food and fluid intake Status: Acute Plan: Fluids: Restrict to 1.5 L due to CHF Electrolytes: Hyperkalemic at 5.6 but no EKG abnormalities. Kayexalate ordered. Nutrition: Cardiac diet. Salt restricted 2-3 g daily. <Lissette Hilliard - 05/22/18 17:59> - Assessment and Plan 63-year-old male presents with acute on chronic CHF exacerbation. Elevated BNP with bilateral 2+ pitting edema, distended abdomen, crackles bilaterally throughout all lung watkins. Patient started on 40 IV Lasix twice daily. CHF protocol. Cardiology consulted due to ejection fraction of less than 20%. Patient also has diabetes, on Levemir 20 units twice daily, medium dose sliding scale. Also confirms left-sided chest pain. ACS rule out. <Lissette Hilliard - 05/22/18 17:58> Discussed Condition With: Dr. Monroe and Dr. Garibay. <Lissette Hilliard - 05/22/18 17:58> - Attending Attestation Late entry: Patient was seen on 05/22/2018 at 13: 00 in the afternoon Patient case discussed with resident physicians I have independently examined the patient I have read the above note and agree with the assessment and plan as discussed with me I was involved in all medical decision making for this patient Jose Monroe MD <Jose Monroe - 05/23/18 11:38> <Lissette Hilliard - Last Filed: 05/22/18 17:59> (9) Chronic kidney disease Qualifiers: Chronic kidney disease stage: unspecified stage Qualified Code(s): N18.9 - Chronic kidney disease, unspecified <Jose Monroe - Last Filed: 05/23/18 11:38> (9) Chronic kidney disease Qualifiers: Chronic kidney disease stage: unspecified stage Qualified Code(s): N18.9 - Chronic kidney disease, unspecified <Lissette Hilliard - Last Filed: 05/22/18 17:59> (9) Chronic kidney disease Qualifiers: Chronic kidney disease stage: unspecified stage Qualified Code(s): N18.9 - Chronic kidney disease, unspecified <Jose Monroe - Last Filed: 05/23/18 11:38> (9) Chronic kidney disease Qualifiers: Chronic kidney disease stage: unspecified stage Qualified Code(s): N18.9 - Chronic kidney disease, unspecified
[2018-05-22] MEDS ORDERED: Bisacodyl 10 MG Supp RECTAL PRN (13:56)
[2018-05-22] MEDS: Carvedilol 12.5 MG Tablet PO SCH ×2 (14:36→20:56)
[2018-05-22] MEDS: Famotidine 20 MG Tablet PO SCH ×2 (14:36→20:55)
[2018-05-22] MEDS ORDERED: Sodium Polystyrene Sulfonate/Sorbitol Liq 15 GM/60 ML UDC PO ONE (15:21)
[2018-05-22 15:44] LABS: Amorphous Sediment,Urine Moderate /hpf; Bilirubin,Urine Negative (Negative); Clarity,Urine Hazy (Clear); Color,Urine Yellow (Yellw/Straw); Glucose,Urine (UA) 500 or Greater mg/dL (Negative); Leukocyte Esterase,Urine Negative (Negative); Mucus,Urine Few /lpf (Occasional); Nitrite,Urine Negative (Negative); Specific Gravity,Urine 1.009 (1.002-1.035)
--- NOTE | 2018-05-22 15:51 | MB ---
cc: Peterson Montiel MD DATE: 05/22/2018 REASON FOR CONSULTATION: CHF. HISTORY OF PRESENT ILLNESS: The patient is a pleasant 63-year-old gentleman with known multivessel disease and ejection fraction of less than 20%, who has had multiple admissions for congestive heart failure and a cardiac catheterization fairly recently showing severe multivessel disease. He has been deemed not yet a candidate for surgery. The patient says that he was told his breathing needs to be improved; however, he keeps presenting with congestive heart failure. He has been put on BiPAP and given diuresis and is already feeling notably better, asking to have something to drink. Denies any chest pain, only shortness of breath. No lightheadedness, dizziness, syncope. PAST MEDICAL HISTORY: 1. Ischemic cardiomyopathy, ejection fraction less than 20%. 2. Chronic systolic congestive heart failure. 3. Severe multivessel coronary disease. 4. Hypertension. 5. Hyperlipidemia. CURRENT MEDICATIONS: 1. Aspirin 81 mg a day. 2. Lipitor 80 mg daily. 3. Coreg 12.5 mg b.i.d. 4. Plavix 75 mg daily. 5. Lovenox. 6. Lasix 40 mg IV b.i.d. 7. Lisinopril 2.5 mg daily. 8. Lyrica. 9. Flomax. ALLERGIES: NO KNOWN DRUG ALLERGIES. PHYSICAL EXAMINATION: VITAL SIGNS: Afebrile, pulse 82, respiratory rate 20, BP 123/77, saturating 100 on 40% BiPAP. GENERAL: Pleasant gentleman in no distress. NECK: No JVD. LUNGS: Decreased breath sounds. CARDIOVASCULAR: Regular rate and rhythm. No murmurs appreciated. ABDOMEN: Benign. EXTREMITIES: Trace edema bilaterally. LABORATORY DATA: White count 8.6, hematocrit 31.5, platelets 223. Sodium 137, potassium 5.6, chloride 104, bicarbonate 23.3, BUN 33, creatinine 1.8, glucose 457. BNP is 1087. Troponin is negative. EKG shows a sinus rhythm with nonspecific intraventricular conduction delay and diffuse ST changes. ASSESSMENT AND PLAN: 1. Acute on chronic systolic congestive heart failure. The patient presents with the above and is already compensating nicely on IV Lasix and BiPAP. Once he is breathing more comfortably, BiPAP can be discontinued, but would continue IV Lasix for some time. 2. Ischemic cardiomyopathy. The patient has low ejection fraction, known multivessel disease. He keeps presenting with congestive heart failure and, ideally, the patient should have revascularization surgery, presuming some degree of viability. I will consult Cardiovascular Surgery to have them take another look, and potentially he could have an MRI on Thursday to better determine whether he is likely to benefit from revascularization. Medication bolivar, he is on carvedilol and lisinopril. Potentially, his JEREMY could be changed to Entresto at some point in the near future. Further recommendations based on his clinical course. Thank you again for the opportunity to participate in this patient's care. MD MONSE Valdez/angelika , 02:33 PM , 02:40 PM
[2018-05-22] MEDS: Pregabalin 75 MG Capsule PO SCH ×2 (15:59→20:55)
[2018-05-22] MEDS: Lisinopril 5 MG Tablet PO SCH (16:00)
[2018-05-22] MEDS: Enoxaparin Inj 30 MG/0.3 ML Syringe SQ SCH (16:01)
[2018-05-22] MEDS: Tiotropium Bromide 18 MCG/ACT Inhaler INH SCH (16:01)
[2018-05-22] MEDS: Insulin NovoLOG Aspart Correctional Sugar Inj SQ SCH ×2 (17:42→22:14)
[2018-05-22 18:47] LABS: ABG Base Excess 2.4 mmol/L (-2-2); ABG PCO2 54 mmHg (38-42); ABG PO2 48 mmHG (61-120)
--- NOTE | 2018-05-22 19:15 | ECG ---
Date Performed: 05/22/2018 Time Performed: 11:31:11 PTAGE: 63 years EKG: Sinus rhythm MODERATE INTRAVENTRICULAR CONDUCTION DELAY NONSPECIFIC ST & T-WAVE ABNORMALITY Compared to previous tracing, criteria for anterior infarction have resolved BORDERLINE ECG PREVIOUS TRACING : 03/28/2018 04.41 DOCTOR: Iván Cruz Interpretating Date/Time 05/22/2018 19:14:37
[2018-05-22] MEDS: Insulin Detemir Inj 1,000 UNIT/10 ML Vial SQ SCH (20:53)
[2018-05-22] MEDS: Senna/Docusate Sodium 8.6/50 MG Tablet PO SCH (20:55)
[2018-05-23 01:18] LABS: Baso % (Auto) 0.5 % (0.0-2.0); Eos # (Auto) 0.2 th/mm3 (0.0-0.4); Eos % (Auto) 2.2 % (0.0-4.0); Hemoglobin 9.4 gm/dL (13.0-17.0); Lymph # (Auto) 1.8 th/mm3 (1.0-4.8); Lymph % (Auto) 22.8 % (9.0-44.0); Mean Corpuscular HGB Conc 33.7 % (32.0-36.0); Mean Corpuscular Hemoglobin 29.7 pg (27.0-34.0); Mean Corpuscular Volume 88.1 fL (80.0-100.0); Mean Platelet Volume 7.4 fL (7.0-11.0); Mono # (Auto) 0.9 th/mm3 (0.0-0.9); Mono % (Auto) 11.3 % (0.0-8.0); Neut # (Auto) 5.1 th/mm3 (1.8-7.7); Neut % (Auto) 63.2 % (16.0-70.0); Platelet Count 228 th/mm3 (150-450); Red Blood Count 3.17 mil/mm3 (4.50-5.90); Red Cell Distribution Width 15.1 % (11.6-17.2); White Blood Count 8.1 th/mm3 (4.0-11.0)
[2018-05-23 01:42] LABS: Albumin 2.1 g/dL (3.4-5.0); Anion Gap 4 meq/L (5-15); Aspartate Aminotransferase 9 U/L (15-37); Blood Urea Nitrogen 38 mg/dL (7-18); Calcium 8.1 mg/dL (8.5-10.1); Carbon Dioxide 30.7 meq/L (21.0-32.0); Chloride 107 meq/L (98-107); Glomerular Filtration Rate 31 mL/min (>89); Glucose,Random 187 mg/dL (74-106); Potassium 4.3 meq/L (3.5-5.1); Sodium 142 meq/L (136-145)
[2018-05-23 01:46] LABS: Alanine Aminotransferase 25 U/L (12-78); Alkaline Phosphatase 205 U/L (45-117); Total Protein 5.5 g/dL (6.4-8.2)
[2018-05-23] MEDS: Insulin NovoLOG Aspart Correctional Sugar Inj SQ SCH ×4 (03:18→19:49)
[2018-05-23] MEDS: Lisinopril 5 MG Tablet PO SCH (09:14)
[2018-05-23] MEDS: Enoxaparin Inj 30 MG/0.3 ML Syringe SQ SCH (09:14)
[2018-05-23] MEDS: Senna/Docusate Sodium 8.6/50 MG Tablet PO SCH ×2 (09:15→21:03)
[2018-05-23] MEDS: Famotidine 20 MG Tablet PO SCH ×2 (09:15→21:01)
[2018-05-23] MEDS: Carvedilol 12.5 MG Tablet PO SCH ×2 (09:16→21:03)
[2018-05-23] MEDS: Pregabalin 75 MG Capsule PO SCH ×2 (09:16→21:00)
--- NOTE | 2018-05-23 09:16 | P.PNCA ---
Subjective Interval history: Pt notes improved breathing/edema Medications and Allergies Active Medications: Active Medications Acetaminophen (Tylenol) 650 mg PO Q4H PRN PRN Reason: Temp > 100.4, Pain scale 1-2 Hydrocodone Bitart/Acetaminophen ([place] 10/325) 1 tab PO Q6H PRN PRN Reason: Pain scale 3-10 Last Admin: 05/23/18 02:45 Dose: 1 tab Al Hydroxide/Mg Hydroxide (Milk Of Magnesia Liq) 30 ml PO Q12H PRN PRN Reason: Mild Constipation Aspirin (Ecotrin) 81 mg PO DAILY [facility] Last Admin: 05/22/18 14:36 Dose: 81 mg Atorvastatin Calcium (Lipitor) 80 mg PO HS [facility] Last Admin: 05/22/18 20:55 Dose: 80 mg Bisacodyl (Dulcolax Supp) 10 mg RECTAL DAILY PRN PRN Reason: SEVERE CONSITIPATION Carvedilol (Coreg) 12.5 mg PO BID [facility] Last Admin: 05/22/18 20:56 Dose: 12.5 mg Clopidogrel Bisulfate (Plavix) 75 mg PO DAILY [facility] Last Admin: 05/22/18 14:36 Dose: 75 mg Dextrose (D50w Vial) 50 ml IV.PUSH UNSCH PRN PRN Reason: PER HYPOGLYCEMIA PROTOCOL Enoxaparin Sodium (Lovenox Inj) 30 mg SQ DAILY [facility] Last Admin: 05/22/18 16:01 Dose: 30 mg Famotidine (Pepcid) 10 mg PO BID [facility] Furosemide (Lasix Inj) 40 mg IV.PUSH BID@0900,1800 [facility] Last Admin: 05/22/18 17:42 Dose: 40 mg Glucagon (Glucagon Inj) 1 mg OTHER PRN PRN PRN Reason: for Hypoglycemia Protocol Insulin Aspart (Novolog Insulin Correctional Sugar Inj) 0 unit SQ ACHS AND 3AM [place]; Protocol Last Admin: 05/23/18 03:18 Dose: 2 unit Insulin Detemir (Levemir Inj) 20 unit SQ BID [facility] Last Admin: 05/22/18 20:53 Dose: 20 unit Lactulose (Lactulose Liq) 30 ml PO DAILY PRN PRN Reason: SEVERE CONSITIPATION Lisinopril (Prinivil) 2.5 mg PO DAILY [facility] Last Admin: 05/22/18 16:00 Dose: Not Given Ondansetron HCl (Zofran Inj) 4 mg IV.PUSH Q6H PRN PRN Reason: NAUSEA OR VOMITING Pregabalin (Lyrica) 75 mg PO BID [facility] Last Admin: 05/22/18 20:55 Dose: 75 mg Senna/Docusate Sodium (Abiola-Colace) 1 tab PO BID [facility] Last Admin: 05/22/18 20:55 Dose: 1 tab Sennosides (Senokot) 17.2 mg PO Q12H PRN PRN Reason: Moderate Constipation Sodium Chloride (Ns Flush) 2 ml IV.FLUSH PRN PRN PRN Reason: FLUSH AFTER USING IV ACCESS Sodium Chloride (Ns Flush) 2 ml IV.FLUSH BID [facility] Last Admin: 05/22/18 20:57 Dose: 2 ml Tamsulosin HCl (Flomax) 0.4 mg PO HS [facility] Last Admin: 05/22/18 21:34 Dose: 0.4 mg Tiotropium [place] (Spiriva 18 Mcg Inh) 18 mcg INH DAILY [facility] Last Admin: 05/22/18 16:01 Dose: 18 mcg Allergies Allergy/AdvReac Type Severity Reaction Status Date / Time No Known Allergies Allergy Verified 03/27/18 10:29 Home Medications Medication Instructions Recorded Confirmed Type hydrocodone-acetaminophen [[place]] 1 tab PO Q6H 01/15/18 05/22/18 History insulin regular human [Humulin R 1 sliding scale dose SUB-Q UD 01/15/18 History Regular U-100 Insuln] lidocaine [Lidocaine Pain Relief] 1 patch TOPICAL Q8H 01/15/18 05/22/18 History ranitidine HCl [Zantac] 150 mg PO BID 01/15/18 05/22/18 History sitagliptin-metformin [Janumet] 1 tab PO DAILY 01/15/18 05/22/18 History tamsulosin [Flomax] 0.4 mg PO HS 01/15/18 05/22/18 History Physical Exam Vital signs: Vital Signs 05/22/18 11:17 05/22/18 11:18 05/22/18 11:31 Temperature 98.0 F Pulse Rate 95 H 93 H 92 H Respiratory Rate 22 20 Blood Pressure 158/95 H 161/107 H Pulse Oximetry 98 98 100 05/22/18 11:33 05/22/18 11:53 05/22/18 14:00 Temperature Pulse Rate 82 Respiratory Rate 20 Blood Pressure 153/77 H Pulse Oximetry 100 100 100 05/22/18 16:00 05/22/18 17:00 05/22/18 18:00 Temperature 98.7 F Pulse Rate 84 85 83 Respiratory Rate 20 Blood Pressure 152/78 H Pulse Oximetry 98 05/22/18 19:00 05/22/18 20:00 05/22/18 21:00 Temperature 98.2 F Pulse Rate 87 78 82 Respiratory Rate 20 Blood Pressure 140/71 Pulse Oximetry 100 05/22/18 21:01 05/22/18 22:00 05/22/18 22:42 Temperature Pulse Rate 78 Respiratory Rate Blood Pressure Pulse Oximetry 100 98 05/23/18 00:00 05/23/18 01:00 05/23/18 01:38 Temperature 97.7 F Pulse Rate 78 76 Respiratory Rate 18 Blood Pressure 143/57 H Pulse Oximetry 100 100 05/23/18 02:00 05/23/18 03:00 05/23/18 04:00 Temperature 98.0 F Pulse Rate 70 76 74 Respiratory Rate 18 Blood Pressure 155/87 H Pulse Oximetry 100 05/23/18 04:30 05/23/18 05:00 05/23/18 06:00 Temperature Pulse Rate 72 79 Respiratory Rate Blood Pressure Pulse Oximetry 98 Intake & Output 05/22/18 05/23/18 05/23/18 18:59 06:59 18:59 Output Total 1100 / 1100 Balance -1100 / -1100 Weight 104.326 kg 106 kg Output: Urine Amount (Catheter) 1100 / 1100 Indwelling Urethral Catheter 1100 / 1100 Other: Date of Last Bowel Movement 05/22/18 - Constitutional average body habitus - Routine HEENT Exam Head: Present: normocephalic Eye: Present: EOMI ENT: Present: mucous membranes moist - Routine Neck Exam Present: supple - Routine Respiratory Exam Present: CTA bilaterally - Routine Cardiovascular Exam Present: RRR - Routine Abdominal Exam Present: soft - Routine Extremities Exam Present: edema Comments: improved edema - Urinary Catheter Management Indwelling Urethral Catheter Cath placed during this visit: yes Reason for continuing: Hourly intake/output Insertion date: 05/22/18 Insertion time: 12:37 Results 05/23/18 01:09 05/23/18 01:09 Cardiac Enzymes 05/22/18 05/22/18 05/22/18 Range/Units 11:25 11:25 18:55 AST 12 L (15-37) U/L Troponin I 0.05 0.45 H (0.02-0.05) ng/mL B-Natriuretic Peptide 1887 H (0-100) pg/mL 05/23/18 05/23/18 05/23/18 Range/Units 01:09 01:09 01:09 AST 9 L (15-37) U/L Troponin I 0.41 H (0.02-0.05) ng/mL B-Natriuretic Peptide 2102 H (0-100) pg/mL Coagulation 05/22/18 05/23/18 Range/Units 11:25 01:09 B-Natriuretic Peptide 1887 H 2102 H (0-100) pg/mL CBC 05/22/18 05/23/18 Range/Units 11:25 01:09 WBC 8.6 8.1 (4.0-11.0) th/mm3 RBC 3.43 L 3.17 L (4.50-5.90) mil/mm3 Hgb 10.5 L 9.4 L (13.0-17.0) gm/dL Hct 31.5 L 28.0 L (39.0-51.0) % Plt Count 223 228 (150-450) th/mm3 Neut # (Auto) 6.4 5.1 (1.8-7.7) th/mm3 Lymph # (Auto) 1.4 1.8 (1.0-4.8) th/mm3 [place] # (Auto) 0.7 0.9 (0.0-0.9) th/mm3 Eos # (Auto) 0.1 0.2 (0.0-0.4) th/mm3 Baso # (Auto) 0.1 0.0 (0.0-0.2) th/mm3 Comprehensive Metabolic Panel 05/22/18 05/23/18 Range/Units 11:25 01:09 Sodium 137 142 (136-145) meq/L Potassium 5.6 H 4.3 D (3.5-5.1) meq/L Chloride 104 107 (98-107) meq/L Carbon Dioxide 23.3 30.7 (21.0-32.0) meq/L BUN 33 H 38 H (7-18) mg/dL Creatinine 1.88 H 2.17 H (0.60-1.30) mg/dL Calcium 8.1 L 8.1 L (8.5-10.1) mg/dL AST 12 L 9 L (15-37) U/L ALT 35 25 (12-78) U/L Alkaline Phosphatase 258 H 205 H (45-117) U/L Total Protein 6.5 5.5 L D (6.4-8.2) g/dL Albumin 2.6 L 2.1 L (3.4-5.0) g/dL Intake and Output 05/22/18 05/23/18 05/23/18 22:59 06:59 14:59 Output Total 1100 / 1100 Balance -1099 / -1100 Output: Urine Amount (Catheter) 1099 Indwelling Urethral Catheter 1099 Other: Date of Last Bowel Movement 05/22/18 Weight 106 kg - Imaging and Cardiology Imaging: Impressions Chest X-Ray 05/22/18 11:18 CONCLUSION: Radiographic findings consistent with stable appearance of congestive heart failure with progressive bilateral airspace opacities consistent with atelectasis versus airspace consolidation. Assessment and Plan - Assessment (1) Ischemic cardiomyopathy Code(s): I25.5 - Ischemic cardiomyopathy Status: Acute Plan: ef < 20%, on rené/bb; will plan for nuclear viability study (cr too high for MRI) , if some viability would recommend cabg. (2) CHF (congestive heart failure), NYHA class IV Code(s): I50.9 - Heart failure, unspecified Status: Acute Plan: improving on lasix (3) Edema Code(s): R60.9 - Edema, unspecified Status: Acute - Plan 1. Ischemic cardiomyopathy, ejection fraction less than 20%. 2. Chronic systolic congestive heart failure. 3. Severe multivessel coronary disease. 4. Hypertension. 5. Hyperlipidemia - Attending Attestation Given multiple chf admissions/poor Cr. known severe MV CAD and low LVEF; prognosis is poor and he will certainly be high risk for any surgical procedure.
[2018-05-23] MEDS: Insulin Detemir Inj 1,000 UNIT/10 ML Vial SQ SCH ×2 (09:17→21:00)
--- NOTE | 2018-05-23 10:24 | XR ---
EXAM DATE: 05/23/2018 10:12 AM EST AGE/SEX: 63 years / Male INDICATIONS: . Short of Breath CLINICAL DATA: This is the patient's subsequent encounter. Patient reports that signs and symptoms h ave been present for 2 days and indicates a pain score of 0/10. MEDICAL/SURGICAL HISTORY: . Hypertension. Diabetes mellitus type II. Chronic obstructive pulmo nary disease. Congestive heart failure. Smoker. . Coronary artery stent. . COMPARISON: [facility] [place] [facility] [place] 1V SINGLE AP, 05/22/2018. . FINDINGS: AP lateral views of the chest are performed. The heart size appears mildly enlarged with diffuse ceph alization of pulmonary vasculature and bilateral basilar airspace opacities. There is blunting of the costophrenic angle seen on the posterior exam consistent with bilateral pleural effusions. CONCLUSION: Stable appearance of congestive heart failure with pulmonary edema and bilateral pleural effusions. Electronically signed by: Windy Huertas MD Board Certified Radiologist 05/23/2018 10:23 AM E
--- NOTE | 2018-05-23 10:50 | P.PNFP ---
Subjective Interval history: Patient is doing much better today, he states that he is breathing better and he has no chest pain. He does complain of increased scrotal swelling and increased back pain. He would like his bed changed. <EkoSiena U - 05/23/18 12:39> Results - Labs Result diagrams: 05/23/18 01:09 05/23/18 01:09 <FerJose garrido - 05/23/18 14:21> Abnormal lab results 05/22/18 05/22/18 05/22/18 Range/Units 14:39 14:40 17:31 RBC (4.50-5.90) mil/mm3 Hgb (13.0-17.0) gm/dL Hct (39.0-51.0) % [place] % (Auto) (0.0-8.0) % O2 Saturation (90-100) % ABG pH (7.380-7.420) ABG pCO2 (38-42) mmHg ABG pO2 (61-120) mmHG ABG HCO3 (22-26) mmol/L ABG O2 Content (12.0-20.0) Vol % ABG Base Excess (-2-2) mmol/L Hemoglobin (12.0-16.0) G/DL Anion Gap (5-15) meq/L BUN (7-18) mg/dL Creatinine (0.60-1.30) mg/dL Estimated GFR (>89) mL/min POC Glucose 416 H 322 H (68-110) mg/dl Random Glucose (74-106) mg/dL Hemoglobin A1c (4.3-6.0) % Calcium (8.5-10.1) mg/dL AST (15-37) U/L Alkaline Phosphatase (45-117) U/L Troponin I (0.02-0.05) ng/mL B-Natriuretic Peptide (0-100) pg/mL Total Protein (6.4-8.2) g/dL Albumin (3.4-5.0) g/dL Triglycerides (42-150) mg/dL Cholesterol (120-200) mg/dL HDL Cholesterol (40.0-60.0) mg/dL Urine Clarity Hazy H (Clear) Urine Protein 100 H (Neg-Trace) mg/dL Urine Ketones Trace H (Negative) mg/dL Urine Occult Blood Small H (Negative) Amorphous Sediment Moderate H (None) /hpf Urine Mucus Few H (Occasional) /lpf 05/22/18 05/22/18 05/22/18 Range/Units 18:36 18:55 21:37 RBC (4.50-5.90) mil/mm3 Hgb (13.0-17.0) gm/dL Hct (39.0-51.0) % [place] % (Auto) (0.0-8.0) % O2 Saturation 76 L* (90-100) % ABG pH 7.33 L (7.380-7.420) ABG pCO2 54 H* (38-42) mmHg ABG pO2 48 L* (61-120) mmHG ABG HCO3 28 H (22-26) mmol/L ABG O2 Content 9.9 L (12.0-20.0) Vol % ABG Base Excess 2.4 H (-2-2) mmol/L Hemoglobin 9.2 L (12.0-16.0) G/DL Anion Gap (5-15) meq/L BUN (7-18) mg/dL Creatinine (0.60-1.30) mg/dL Estimated GFR (>89) mL/min POC Glucose 237 H (68-110) mg/dl Random Glucose (74-106) mg/dL Hemoglobin A1c (4.3-6.0) % Calcium (8.5-10.1) mg/dL AST (15-37) U/L Alkaline Phosphatase (45-117) U/L Troponin I 0.45 H (0.02-0.05) ng/mL B-Natriuretic Peptide (0-100) pg/mL Total Protein (6.4-8.2) g/dL Albumin (3.4-5.0) g/dL Triglycerides (42-150) mg/dL Cholesterol (120-200) mg/dL HDL Cholesterol (40.0-60.0) mg/dL Urine Clarity (Clear) Urine Protein (Neg-Trace) mg/dL Urine Ketones (Negative) mg/dL Urine Occult Blood (Negative) Amorphous Sediment (None) /hpf Urine Mucus (Occasional) /lpf 05/23/18 05/23/18 05/23/18 Range/Units 01:09 01:09 01:09 RBC 3.17 L (4.50-5.90) mil/mm3 Hgb 9.4 L (13.0-17.0) gm/dL Hct 28.0 L (39.0-51.0) % [place] % (Auto) 11.3 H (0.0-8.0) % O2 Saturation (90-100) % ABG pH (7.380-7.420) ABG pCO2 (38-42) mmHg ABG pO2 (61-120) mmHG ABG HCO3 (22-26) mmol/L ABG O2 Content (12.0-20.0) Vol % ABG Base Excess (-2-2) mmol/L Hemoglobin (12.0-16.0) G/DL Anion Gap 4 L (5-15) meq/L BUN 38 H (7-18) mg/dL Creatinine 2.17 H (0.60-1.30) mg/dL Estimated GFR 31 L (>89) mL/min POC Glucose (68-110) mg/dl Random Glucose 187 H D (74-106) mg/dL Hemoglobin A1c (4.3-6.0) % Calcium 8.1 L (8.5-10.1) mg/dL AST 9 L (15-37) U/L Alkaline Phosphatase 205 H (45-117) U/L Troponin I 0.41 H (0.02-0.05) ng/mL B-Natriuretic Peptide (0-100) pg/mL Total Protein 5.5 L D (6.4-8.2) g/dL Albumin 2.1 L (3.4-5.0) g/dL Triglycerides (42-150) mg/dL Cholesterol (120-200) mg/dL HDL Cholesterol (40.0-60.0) mg/dL Urine Clarity (Clear) Urine Protein (Neg-Trace) mg/dL Urine Ketones (Negative) mg/dL Urine Occult Blood (Negative) Amorphous Sediment (None) /hpf Urine Mucus (Occasional) /lpf 05/23/18 05/23/18 05/23/18 Range/Units 01:09 01:09 01:09 RBC (4.50-5.90) mil/mm3 Hgb (13.0-17.0) gm/dL Hct (39.0-51.0) % [place] % (Auto) (0.0-8.0) % O2 Saturation (90-100) % ABG pH (7.380-7.420) ABG pCO2 (38-42) mmHg ABG pO2 (61-120) mmHG ABG HCO3 (22-26) mmol/L ABG O2 Content (12.0-20.0) Vol % ABG Base Excess (-2-2) mmol/L Hemoglobin (12.0-16.0) G/DL Anion Gap (5-15) meq/L BUN (7-18) mg/dL Creatinine (0.60-1.30) mg/dL Estimated GFR (>89) mL/min POC Glucose (68-110) mg/dl Random Glucose (74-106) mg/dL Hemoglobin A1c 10.8 H (4.3-6.0) % Calcium (8.5-10.1) mg/dL AST (15-37) U/L Alkaline Phosphatase (45-117) U/L Troponin I (0.02-0.05) ng/mL B-Natriuretic Peptide 2102 H (0-100) pg/mL Total Protein (6.4-8.2) g/dL Albumin (3.4-5.0) g/dL Triglycerides 160 H (42-150) mg/dL Cholesterol 116 L (120-200) mg/dL HDL Cholesterol 35.4 L (40.0-60.0) mg/dL Urine Clarity (Clear) Urine Protein (Neg-Trace) mg/dL Urine Ketones (Negative) mg/dL Urine Occult Blood (Negative) Amorphous Sediment (None) /hpf Urine Mucus (Occasional) /lpf 05/23/18 05/23/18 05/23/18 Range/Units 02:53 08:35 11:58 RBC (4.50-5.90) mil/mm3 Hgb (13.0-17.0) gm/dL Hct (39.0-51.0) % [place] % (Auto) (0.0-8.0) % O2 Saturation (90-100) % ABG pH (7.380-7.420) ABG pCO2 (38-42) mmHg ABG pO2 (61-120) mmHG ABG HCO3 (22-26) mmol/L ABG O2 Content (12.0-20.0) Vol % ABG Base Excess (-2-2) mmol/L Hemoglobin (12.0-16.0) G/DL Anion Gap (5-15) meq/L BUN (7-18) mg/dL Creatinine (0.60-1.30) mg/dL Estimated GFR (>89) mL/min POC Glucose 173 H 139 H 205 H (68-110) mg/dl Random Glucose (74-106) mg/dL Hemoglobin A1c (4.3-6.0) % Calcium (8.5-10.1) mg/dL AST (15-37) U/L Alkaline Phosphatase (45-117) U/L Troponin I (0.02-0.05) ng/mL B-Natriuretic Peptide (0-100) pg/mL Total Protein (6.4-8.2) g/dL Albumin (3.4-5.0) g/dL Triglycerides (42-150) mg/dL Cholesterol (120-200) mg/dL HDL Cholesterol (40.0-60.0) mg/dL Urine Clarity (Clear) Urine Protein (Neg-Trace) mg/dL Urine Ketones (Negative) mg/dL Urine Occult Blood (Negative) Amorphous Sediment (None) /hpf Urine Mucus (Occasional) /lpf Short CBC 05/23/18 Range/Units 01:09 WBC 8.1 (4.0-11.0) th/mm3 Hgb 9.4 L (13.0-17.0) gm/dL Hct 28.0 L (39.0-51.0) % Plt Count 228 (150-450) th/mm3 BMP 05/23/18 01:09 Sodium 142 Potassium 4.3 D Chloride 107 Carbon Dioxide 30.7 BUN 38 H Creatinine 2.17 H Calcium 8.1 L Cardiac Enzymes 05/22/18 05/23/18 Range/Units 18:55 01:09 Troponin I 0.45 H 0.41 H (0.02-0.05) ng/mL Liver Function 05/23/18 Range/Units 01:09 Total Bilirubin 0.3 (0.2-1.0) mg/dL AST 9 L (15-37) U/L ALT 25 (12-78) U/L Alkaline Phosphatase 205 H (45-117) U/L Albumin 2.1 L (3.4-5.0) g/dL Urine 05/22/18 Range/Units 14:40 Urine Color Yellow (Yellw/Straw) Urine Clarity Hazy H (Clear) Urine pH 5.0 (5.0-8.5) Ur Specific [place] 1.009 (1.002-1.035) Urine Protein 100 H (Neg-Trace) mg/dL Urine Glucose (UA) 500 or greater (Negative) mg/dL <Jose Monroe - 05/23/18 14:21> Abnormal lab results 05/22/18 05/22/18 05/22/18 Range/Units 11:25 11:25 11:25 RBC 3.43 L (4.50-5.90) mil/mm3 Hgb 10.5 L (13.0-17.0) gm/dL Hct 31.5 L (39.0-51.0) % Neut % (Auto) 74.2 H (16.0-70.0) % [place] % (Auto) (0.0-8.0) % O2 Saturation (90-100) % ABG pH (7.380-7.420) ABG pCO2 (38-42) mmHg ABG pO2 (61-120) mmHG ABG HCO3 (22-26) mmol/L ABG O2 Content (12.0-20.0) Vol % ABG Base Excess (-2-2) mmol/L Hemoglobin (12.0-16.0) G/DL Potassium 5.6 H (3.5-5.1) meq/L Anion Gap (5-15) meq/L BUN 33 H (7-18) mg/dL Creatinine 1.88 H (0.60-1.30) mg/dL Estimated GFR 37 L (>89) mL/min POC Glucose (68-110) mg/dl Random Glucose 457 H* (74-106) mg/dL Calcium 8.1 L (8.5-10.1) mg/dL AST 12 L (15-37) U/L Alkaline Phosphatase 258 H (45-117) U/L Troponin I (0.02-0.05) ng/mL B-Natriuretic Peptide 1887 H (0-100) pg/mL Total Protein (6.4-8.2) g/dL Albumin 2.6 L (3.4-5.0) g/dL Urine Clarity (Clear) Urine Protein (Neg-Trace) mg/dL Urine Ketones (Negative) mg/dL Urine Occult Blood (Negative) Amorphous Sediment (None) /hpf Urine Mucus (Occasional) /lpf 05/22/18 05/22/18 05/22/18 Range/Units 14:39 14:40 17:31 RBC (4.50-5.90) mil/mm3 Hgb (13.0-17.0) gm/dL Hct (39.0-51.0) % Neut % (Auto) (16.0-70.0) % [place] % (Auto) (0.0-8.0) % O2 Saturation (90-100) % ABG pH (7.380-7.420) ABG pCO2 (38-42) mmHg ABG pO2 (61-120) mmHG ABG HCO3 (22-26) mmol/L ABG O2 Content (12.0-20.0) Vol % ABG Base Excess (-2-2) mmol/L Hemoglobin (12.0-16.0) G/DL Potassium (3.5-5.1) meq/L Anion Gap (5-15) meq/L BUN (7-18) mg/dL Creatinine (0.60-1.30) mg/dL Estimated GFR (>89) mL/min POC Glucose 416 H 322 H (68-110) mg/dl Random Glucose (74-106) mg/dL Calcium (8.5-10.1) mg/dL AST (15-37) U/L Alkaline Phosphatase (45-117) U/L Troponin I (0.02-0.05) ng/mL B-Natriuretic Peptide (0-100) pg/mL Total Protein (6.4-8.2) g/dL Albumin (3.4-5.0) g/dL Urine Clarity Hazy H (Clear) Urine Protein 100 H (Neg-Trace) mg/dL Urine Ketones Trace H (Negative) mg/dL Urine Occult Blood Small H (Negative) Amorphous Sediment Moderate H (None) /hpf Urine Mucus Few H (Occasional) /lpf 05/22/18 05/22/18 05/22/18 Range/Units 18:36 18:55 21:37 RBC (4.50-5.90) mil/mm3 Hgb (13.0-17.0) gm/dL Hct (39.0-51.0) % Neut % (Auto) (16.0-70.0) % [place] % (Auto) (0.0-8.0) % O2 Saturation 76 L* (90-100) % ABG pH 7.33 L (7.380-7.420) ABG pCO2 54 H* (38-42) mmHg ABG pO2 48 L* (61-120) mmHG ABG HCO3 28 H (22-26) mmol/L ABG O2 Content 9.9 L (12.0-20.0) Vol % ABG Base Excess 2.4 H (-2-2) mmol/L Hemoglobin 9.2 L (12.0-16.0) G/DL Potassium (3.5-5.1) meq/L Anion Gap (5-15) meq/L BUN (7-18) mg/dL Creatinine (0.60-1.30) mg/dL Estimated GFR (>89) mL/min POC Glucose 237 H (68-110) mg/dl Random Glucose (74-106) mg/dL Calcium (8.5-10.1) mg/dL AST (15-37) U/L Alkaline Phosphatase (45-117) U/L Troponin I 0.45 H (0.02-0.05) ng/mL B-Natriuretic Peptide (0-100) pg/mL Total Protein (6.4-8.2) g/dL Albumin (3.4-5.0) g/dL Urine Clarity (Clear) Urine Protein (Neg-Trace) mg/dL Urine Ketones (Negative) mg/dL Urine Occult Blood (Negative) Amorphous Sediment (None) /hpf Urine Mucus (Occasional) /lpf 05/23/18 05/23/18 05/23/18 Range/Units 01:09 01:09 01:09 RBC 3.17 L (4.50-5.90) mil/mm3 Hgb 9.4 L (13.0-17.0) gm/dL Hct 28.0 L (39.0-51.0) % Neut % (Auto) (16.0-70.0) % [place] % (Auto) 11.3 H (0.0-8.0) % O2 Saturation (90-100) % ABG pH (7.380-7.420) ABG pCO2 (38-42) mmHg ABG pO2 (61-120) mmHG ABG HCO3 (22-26) mmol/L ABG O2 Content (12.0-20.0) Vol % ABG Base Excess (-2-2) mmol/L Hemoglobin (12.0-16.0) G/DL Potassium (3.5-5.1) meq/L Anion Gap 4 L (5-15) meq/L BUN 38 H (7-18) mg/dL Creatinine 2.17 H (0.60-1.30) mg/dL Estimated GFR 31 L (>89) mL/min POC Glucose (68-110) mg/dl Random Glucose 187 H D (74-106) mg/dL Calcium 8.1 L (8.5-10.1) mg/dL AST 9 L (15-37) U/L Alkaline Phosphatase 205 H (45-117) U/L Troponin I 0.41 H (0.02-0.05) ng/mL B-Natriuretic Peptide (0-100) pg/mL Total Protein 5.5 L D (6.4-8.2) g/dL Albumin 2.1 L (3.4-5.0) g/dL Urine Clarity (Clear) Urine Protein (Neg-Trace) mg/dL Urine Ketones (Negative) mg/dL Urine Occult Blood (Negative) Amorphous Sediment (None) /hpf Urine Mucus (Occasional) /lpf 05/23/18 05/23/18 05/23/18 Range/Units 01:09 02:53 08:35 RBC (4.50-5.90) mil/mm3 Hgb (13.0-17.0) gm/dL Hct (39.0-51.0) % Neut % (Auto) (16.0-70.0) % [place] % (Auto) (0.0-8.0) % O2 Saturation (90-100) % ABG pH (7.380-7.420) ABG pCO2 (38-42) mmHg ABG pO2 (61-120) mmHG ABG HCO3 (22-26) mmol/L ABG O2 Content (12.0-20.0) Vol % ABG Base Excess (-2-2) mmol/L Hemoglobin (12.0-16.0) G/DL Potassium (3.5-5.1) meq/L Anion Gap (5-15) meq/L BUN (7-18) mg/dL Creatinine (0.60-1.30) mg/dL Estimated GFR (>89) mL/min POC Glucose 173 H 139 H (68-110) mg/dl Random Glucose (74-106) mg/dL Calcium (8.5-10.1) mg/dL AST (15-37) U/L Alkaline Phosphatase (45-117) U/L Troponin I (0.02-0.05) ng/mL B-Natriuretic Peptide 2102 H (0-100) pg/mL Total Protein (6.4-8.2) g/dL Albumin (3.4-5.0) g/dL Urine Clarity (Clear) Urine Protein (Neg-Trace) mg/dL Urine Ketones (Negative) mg/dL Urine Occult Blood (Negative) Amorphous Sediment (None) /hpf Urine Mucus (Occasional) /lpf Short CBC 05/22/18 05/23/18 Range/Units 11:25 01:09 WBC 8.6 8.1 (4.0-11.0) th/mm3 Hgb 10.5 L 9.4 L (13.0-17.0) gm/dL Hct 31.5 L 28.0 L (39.0-51.0) % Plt Count 223 228 (150-450) th/mm3 BMP 05/22/18 05/23/18 11:25 01:09 Sodium 137 142 Potassium 5.6 H 4.3 D Chloride 104 107 Carbon Dioxide 23.3 30.7 BUN 33 H 38 H Creatinine 1.88 H 2.17 H Calcium 8.1 L 8.1 L Cardiac Enzymes 05/22/18 05/22/18 05/23/18 Range/Units 11:25 18:55 01:09 Troponin I 0.05 0.45 H 0.41 H (0.02-0.05) ng/mL Liver Function 05/22/18 05/23/18 Range/Units 11:25 01:09 Total Bilirubin 0.6 0.3 (0.2-1.0) mg/dL AST 12 L 9 L (15-37) U/L ALT 35 25 (12-78) U/L Alkaline Phosphatase 258 H 205 H (45-117) U/L Albumin 2.6 L 2.1 L (3.4-5.0) g/dL Urine 05/22/18 Range/Units 14:40 Urine Color Yellow (Yellw/Straw) Urine Clarity Hazy H (Clear) Urine pH 5.0 (5.0-8.5) Ur Specific [place] 1.009 (1.002-1.035) Urine Protein 100 H (Neg-Trace) mg/dL Urine Glucose (UA) 500 or greater (Negative) mg/dL <Eko,Siena U - 05/23/18 10:50> - Imaging Impressions Chest X-Ray 05/23/18 06:00 CONCLUSION: Stable appearance of congestive heart failure with pulmonary edema and bilateral pleural effusions. <Fer,Jose - 05/23/18 14:21> Impressions Chest X-Ray 05/22/18 11:18 CONCLUSION: Radiographic findings consistent with stable appearance of congestive heart failure with progressive bilateral airspace opacities consistent with atelectasis versus airspace consolidation. Chest X-Ray 05/23/18 06:00 CONCLUSION: Stable appearance of congestive heart failure with pulmonary edema and bilateral pleural effusions. <EkoBushraSiena U - 05/23/18 10:50> Physical Exam Vital signs: Vital Signs 05/22/18 16:00 05/22/18 17:00 05/22/18 18:00 Temperature 98.7 F Pulse Rate 84 85 83 Respiratory Rate 20 Blood Pressure 152/78 H Pulse Oximetry 98 05/22/18 19:00 05/22/18 20:00 05/22/18 21:00 Temperature 98.2 F Pulse Rate 87 78 82 Respiratory Rate 20 Blood Pressure 140/71 Pulse Oximetry 100 05/22/18 21:01 05/22/18 22:00 05/22/18 22:42 Temperature Pulse Rate 78 Respiratory Rate Blood Pressure Pulse Oximetry 100 98 05/23/18 00:00 05/23/18 01:00 05/23/18 01:38 Temperature 97.7 F Pulse Rate 78 76 Respiratory Rate 18 Blood Pressure 143/57 H Pulse Oximetry 100 100 05/23/18 02:00 05/23/18 03:00 05/23/18 04:00 Temperature 98.0 F Pulse Rate 70 76 74 Respiratory Rate 18 Blood Pressure 155/87 H Pulse Oximetry 100 05/23/18 04:30 05/23/18 05:00 05/23/18 06:00 Temperature Pulse Rate 72 79 Respiratory Rate Blood Pressure Pulse Oximetry 98 05/23/18 08:00 05/23/18 12:00 Temperature 98.0 F 98.2 F Pulse Rate 79 75 Respiratory Rate 20 20 Blood Pressure 124/66 118/51 L Pulse Oximetry 98 98 Intake & Output 05/22/18 05/23/18 05/23/18 18:59 06:59 18:59 Output Total 1100 / 1100 Balance -1100 / -1100 Weight 104.326 kg 106 kg Output: Urine Amount (Catheter) 1099 Indwelling Urethral Catheter 1099 Other: Date of Last Bowel Movement 05/22/18 05/22/18 <Jose Monroe - 05/23/18 14:21> Vital Signs 05/22/18 11:17 05/22/18 11:18 05/22/18 11:31 Temperature 98.0 F Pulse Rate 95 H 93 H 92 H Respiratory Rate 22 20 Blood Pressure 158/95 H 161/107 H Pulse Oximetry 98 98 100 05/22/18 11:33 05/22/18 11:53 05/22/18 14:00 Temperature Pulse Rate 82 Respiratory Rate 20 Blood Pressure 153/77 H Pulse Oximetry 100 100 100 05/22/18 16:00 05/22/18 17:00 05/22/18 18:00 Temperature 98.7 F Pulse Rate 84 85 83 Respiratory Rate 20 Blood Pressure 152/78 H Pulse Oximetry 98 05/22/18 19:00 05/22/18 20:00 05/22/18 21:00 Temperature 98.2 F Pulse Rate 87 78 82 Respiratory Rate 20 Blood Pressure 140/71 Pulse Oximetry 100 05/22/18 21:01 05/22/18 22:00 05/22/18 22:42 Temperature Pulse Rate 78 Respiratory Rate Blood Pressure Pulse Oximetry 100 98 05/23/18 00:00 05/23/18 01:00 05/23/18 01:38 Temperature 97.7 F Pulse Rate 78 76 Respiratory Rate 18 Blood Pressure 143/57 H Pulse Oximetry 100 100 05/23/18 02:00 05/23/18 03:00 05/23/18 04:00 Temperature 98.0 F Pulse Rate 70 76 74 Respiratory Rate 18 Blood Pressure 155/87 H Pulse Oximetry 100 05/23/18 04:30 05/23/18 05:00 05/23/18 06:00 Temperature Pulse Rate 72 79 Respiratory Rate Blood Pressure Pulse Oximetry 98 Intake & Output 05/22/18 05/23/18 05/23/18 18:59 06:59 18:59 Output Total 1100 / 1100 Balance -1100 / -1100 Weight 104.326 kg 106 kg Output: Urine Amount (Catheter) 1100 / 1100 Indwelling Urethral Catheter 1100 / 1099 Other: Date of Last Bowel Movement 05/22/18 <Eko,Siena U - 05/23/18 10:50> Narrative: General: Obese male sitting up in bed, currently on NC Cardiovascular: Regular rate and rhythm without murmur Respiratory: Diffuse bibasilar crackles with diffuse expiratory wheezing Extremities: 1+ pitting edema up the knees bilaterally, significantly swollen scrotum <Eko,Siena U - 05/23/18 13:24> - Urinary Catheter Management Indwelling Urethral Catheter Cath placed during this visit: no <Jose Monroe - 05/23/18 14:21> yes <Eko,Siena U - 05/23/18 13:24> Reason for continuing: Hourly intake/output <Eko,Siena U - 05/23/18 10:50> Insertion date: 05/22/18 <Eko,Siena U - 05/23/18 10:50> Insertion time: 12:37 <Eko,Siena U - 05/23/18 10:50> Assessment and Plan - Assessment (1) Acute exacerbation of CHF (congestive heart failure) Code(s): I50.9 - Heart failure, unspecified Status: Acute (2) Ischemic cardiomyopathy Code(s): I25.5 - Ischemic cardiomyopathy Status: Acute (3) SOB (shortness of breath) Code(s): R06.02 - Shortness of breath Status: Acute (4) CAD (coronary artery disease) Code(s): I25.10 - Atherosclerotic heart disease of [place] coronary artery without angina pectoris Status: Acute (5) DM2 (diabetes mellitus, type 2) Code(s): E11.9 - Type 2 diabetes mellitus without complications Status: Acute (6) HTN (hypertension) Code(s): I10 - Essential (primary) hypertension Status: Acute (7) Chronic kidney disease Code(s): N18.9 - Chronic kidney disease, unspecified Status: Acute (8) Nutrition, metabolism, and development symptoms Code(s): R63.8 - Other symptoms and signs concerning food and fluid intake Status: Acute <Jose Monroe - 05/23/18 14:21> (1) Acute exacerbation of CHF (congestive heart failure) Code(s): I50.9 - Heart failure, unspecified Status: Acute Plan: -Improving -Repeat chest x-ray this a.m. shows stable appearance of congestive heart failure with pulmonary edema and bilateral pleural effusions -Continue Lasix 40 mg IV twice daily -Monitor I's and O's strictly with daily weights * Patient has an indwelling ureteral catheter -Fluid restriction 1.5 L -Salt restriction 2 g -Cardiology on board (2) Ischemic cardiomyopathy Code(s): I25.5 - Ischemic cardiomyopathy Status: Acute Plan: -EF less than 20% -Continue beta-ed and JEREMY inhibitor -Cardiology on board * Plan for nuclear viability study to see if some viability will recommend CABG (3) SOB (shortness of breath) Code(s): R06.02 - Shortness of breath Status: Acute Plan: Patient acutely short of breath on admission -Long history of smoking, most likely COPD -Start scheduled duo nebs with albuterol duo nebs as needed -Hold home Atrovent (4) CAD (coronary artery disease) Code(s): I25.10 - Atherosclerotic heart disease of [place] coronary artery without angina pectoris Status: Acute Plan: -Patient with history of previous MD -Continue aspirin and Plavix -Continue atorvastatin 80 mg p.o. HS (5) DM2 (diabetes mellitus, type 2) Code(s): E11.9 - Type 2 diabetes mellitus without complications Status: Acute Plan: -Continue home Levemir U-100 insulin 20 units twice daily -Switch to high dose sliding scale -Check A1c, patient's last A1c was 14.2 in January 2017 (6) HTN (hypertension) Code(s): I10 - Essential (primary) hypertension Status: Acute Plan: -Continue with carvedilol 12.5 mg twice daily -Continue Lisinopril 2.5 mg daily (7) Chronic kidney disease Code(s): N18.9 - Chronic kidney disease, unspecified Status: Acute Plan: Improving from previous admissions. Creatinine: 1.88. Trend in a.m. (8) Nutrition, metabolism, and development symptoms Code(s): R63.8 - Other symptoms and signs concerning food and fluid intake Status: Acute Plan: Fluids: Pral fluids only, restrict to 1.5 L due to CHF Electrolytes: Monitor and replete as needed Nutrition: Cardiac and diabetic diet. Salt restricted 2g daily. <Siena Huggins U - 05/23/18 12:39> - Assessment and Plan 63-year-old male presented with acute on chronic CHF exacerbation. Elevated BNP with bilateral 2+ pitting edema, distended abdomen, crackles bilaterally throughout all lung [place]. Patient was started on 40 IV Lasix twice daily and improved. Cardiology consulted due to ejection fraction of less than 20% and plan to perform nuclear viability study to determine if he needs a CABG. Patient also has diabetes, on Levemir 20 units twice daily, high dose sliding scale. ACS rule out was negative. <Siena Huggins - 05/23/18 13:24> Discussed Condition With: Seen and examined with Dr. Hilliard; discussed with Dr. Monroe <Siena Huggins - 05/23/18 13:24> Discharge Planning: Pending further clinical improvement in CHF symptoms and cardiology recommendations for management of ischemic cardiomyopathy <Siena Huggins U - 05/23/18 13:24> - Attending Attestation Pt. examined and case discussed with resident physicians during medical rounds this morning I have examined the patient and agree with the assessment/plan as dictated above. I was involved in all medical decision making for this patient Jose Monroe MD <Jose Monroe - 05/23/18 14:21> <Siena Huggins U - Last Filed: 05/23/18 12:39> (7) Chronic kidney disease Qualifiers: Chronic kidney disease stage: unspecified stage Qualified Code(s): N18.9 - Chronic kidney disease, unspecified <FerJose garrido - Last Filed: 05/23/18 14:21> (7) Chronic kidney disease Qualifiers: Chronic kidney disease stage: unspecified stage Qualified Code(s): N18.9 - Chronic kidney disease, unspecified <Siena Huggins U - Last Filed: 05/23/18 12:39> (7) Chronic kidney disease Qualifiers: Chronic kidney disease stage: unspecified stage Qualified Code(s): N18.9 - Chronic kidney disease, unspecified <Jose Monroe - Last Filed: 05/23/18 14:21> (7) Chronic kidney disease Qualifiers: Chronic kidney disease stage: unspecified stage Qualified Code(s): N18.9 - Chronic kidney disease, unspecified
--- NOTE | 2018-05-23 11:46 | ECG ---
Date Performed: 05/22/2018 Time Performed: 17:43:36 PTAGE: 63 years EKG: Sinus rhythm Possible anteroseptal infarct - age undetermined Inferior/lateral ST-T changes may be due to myocard ial ischemia Abnormal ECG PREVIOUS TRACING : 05/22/2018 11.31 Compared to previous tracing, poor R-wave progression is no w noted in the anterior lead. This may reflect a lead placemnet change. Clinical correlation is recom mended DOCTOR: Iván Cruz Interpretating Date/Time 05/23/2018 11:44:26
--- NOTE | 2018-05-23 11:51 | ECG ---
Date Performed: 05/23/2018 Time Performed: 00:19:48 PTAGE: 63 years EKG: Sinus rhythm with bigeminal PVCs Possible anteroseptal infarct - age undetermined Inferior/lateral ST-T changes m ay be due to myocardial ischemia Abnormal ECG Since the PREVIOUS TRACING , no significant change noted PREVIOUS TRACIN05/22/2018 17.43 DOCTOR: Iván Cruz Interpretating Date/Time 05/23/2018 11:50:28
[2018-05-23 13:42] LABS: Hemoglobin A1c 10.8 % (4.3-6.0)
[2018-05-23 13:48] LABS: Chol/HDL Ratio 3.27 Ratio; HDL Cholesterol 35.4 mg/dL (40.0-60.0); Thyroid Stimulating Hormone 1.8 uIU/mL (0.358-3.740)
[2018-05-23] MEDS: Tiotropium Bromide 18 MCG/ACT Inhaler INH SCH (19:48)
[2018-05-23] MEDS: Acetaminophen 325 MG Tablet PO PRN (21:17)
[2018-05-24] MEDS: Insulin NovoLOG Aspart Correctional Sugar Inj SQ SCH ×5 (04:56→21:04)
[2018-05-24] MEDS: Acetaminophen 325 MG Tablet PO PRN ×2 (05:55→15:08)
[2018-05-24] MEDS: Benzonatate 100 MG Capsule PO PRN ×3 (06:46→21:07)
--- NOTE | 2018-05-24 06:50 | P.CON ---
History of Present Illness Service: CT Surgery Consult date: 05/24/18 Requesting Physician: Peterson Montiel Reason for Consult: NSTEMI, CHF Primary Care Provider: Rainer Farooq Chief Complaint: Dyspnea History of Present Illness: 63y/o male known to our service presents with SOB and decompensated heart failure. He has multiple risk factors for CAD including uncontrolled DM, HTN, tobacco abuse, hyperlipidemia, and family history. He was evaluated this past March and was deems too high-risk for surgical intervention based on his poor LV function and severe COPD with an FEV1 of 0.8 liters. He denies PND, but c/o orthopnea. He denies chest pain. Review of Systems Constitutional: Reports fatigue, Reports lack of energy Eyes: Denies blind spots, Denies blurry vision, Denies bulging eyes, Denies change in vision, Denies double vision, Denies discharge, Denies dry eyes, Denies floaters, Denies irritation, Denies itchy eyes, Denies loss of vision, Denies pain, Denies requires corrective lenses, Denies sensitivity to light, Denies other Ears, Nose, Mouth, and Throat: Denies abnormal hearing, Denies bleeding gums, Denies bad breath, Denies change in voice, Denies dental pain, Denies difficulty swallowing, Denies dizziness, Denies dry mouth, Denies ear discharge , Denies ear pain, Denies facial pain, Denies headache(s), Denies hearing loss, Denies hoarseness, Denies lip swelling, Denies nosebleed, Denies mouth lesions, Denies mouth pain, Denies nasal congestion, Denies nasal discharge, Denies nasal obstruction, Denies nasal trauma, Denies neck lump, Denies neck pain, Denies nose pain, Denies pain with swallowing, Denies poor balance, Denies post nasal drip, Denies ringing in the ears, Denies sinus pain, Denies sinus pressure , Denies sore throat, Denies throat swelling, Denies tongue swelling, Denies other Cardiovascular: Reports foot swelling, Reports generalized swelling, Reports shortness of breath, Reports shortness of breath with activity, Reports shortness of breath when lying down Respiratory: Reports chest congestion, Reports cough, Reports shortness of breath, Reports shortness of breath with activity Gastrointestinal: Denies abdominal pain, Denies belching, Denies black, tarry stools, Denies bloating, Denies bright, red blood in stools, Denies change in bowel habits, Denies constant urge to pass stool, Denies change in stools, Denies coffee ground vomit, Denies constipation, Denies cramping, Denies difficulty swallowing, Denies excessive passing of gas, Denies feeling full early, Denies heartburn, Denies incontinent of stools, Denies loose stools, Denies nausea, Denies pain with swallowing, Denies vomiting, Denies vomiting blood, Denies other Genitourinary: Denies blood in semen, Denies blood in urine, Denies decreased urination, Denies difficulty urinating, Denies difficulty with ejaculations, Denies erectile dysfunction, Denies genital lesions, Denies genital pain, Denies painful urination, Denies side pain, Denies frequent nighttime urination , Denies painful ejaculations, Denies penile discharge, Denies scrotal swelling , Denies testicle lump, Denies testicle pain, Denies urinary frequency, Denies urinary hesitancy, Denies urinary incontinence, Denies urinary urgency, Denies other Musculoskeletal: Denies abnormal walking, Denies back pain, Denies body aches, Denies decreased muscle mass, Denies deformity, Denies joint pain, Denies joint swelling, Denies limited joint movement, Denies loss of height, Denies muscle cramps, Denies muscle weakness, Denies neck pain, Denies numbness, Denies radiating pain into limb, Denies stiffness, Denies tingling, Denies other Skin/Breast: Denies acne, Denies bleeding lesions, Denies boil, Denies breast swelling, Denies breast skin changes, Denies breast pain, Denies breast lump, Denies change in breast shape, Denies change in hair, Denies change in skin color, Denies changing lesions, Denies dry skin, Denies excessive hair growth, Denies hair loss, Denies itching, Denies lesions, Denies nail changes, Denies new lesions, Denies nipple discharge, Denies non-healing lesions, Denies redness , Denies sensitivity to light, Denies rash, Denies skin pain, Denies skin ulcer , Denies sores, Denies stretch messina, Denies unusual bruising, Denies wounds, Denies yellowing of the skin, Denies other Neurologic: Denies abnormal hearing, Denies abnormal movements, Denies abnormal speech, Denies abnormal walking, Denies behavioral changes, Denies burning sensations, Denies confusion, Denies dizziness, Denies fainting, Denies frequent falls, Denies headache(s), Denies lack of coordination, Denies localized weakness, Denies loss of vision, Denies memory loss, Denies numbness, Denies other visual disturbances, Denies radiating pain, Denies restless legs, Denies convulsions, Denies seizure-like activity, Denies sensory deficit, Denies tingling, Denies tingling/numbness/burning sensations, Denies tremor(s), Denies unsteadiness, Denies weakness, Denies other Psychiatric: Denies abnormal sleep pattern, Denies anxiety, Denies behavioral changes, Denies change in appetite, Denies change in sex drive, Denies confusion , Denies depression, Denies difficulty concentrating, Denies hearing things others do not hear, Denies hopelessness, Denies irritability, Denies lack of enjoyment, Denies memory loss, Denies mood swings, Denies panic attacks, Denies paranoia, Denies seeing things others do not see, Denies sensing things others do not sense, Denies tactile hallucinations, Denies thoughts of hurting/killing others, Denies thoughts of hurting/killing yourself, Denies other Endocrine: Denies cold intolerance, Denies excessive sweating, Denies flushing, Denies heat intolerance, Denies increased hunger, Denies increased thirst, Denies increased urination, Denies rapid, pounding, or irregular heartbeat, Denies other Hematologic/Lymphatic: Denies easy bleeding, Denies easy bruising, Denies enlarged lymph nodes, Denies other Allergic/Immunologic: Denies GI upset with certain foods, Denies hives, Denies itchy eyes, Denies lip swelling, Denies seasonal runny nose, Denies throat swelling, Denies tongue swelling, Denies wheezing, Denies other PMFSH - History History Provided By: Patient - Medical History Medical History: Medical History (Last Updated 05/24/18 @ 06:46 by Estela Hernandez MD) COPD (chronic obstructive pulmonary disease) Renal failure Congestive heart failure Diabetes High cholesterol Hypertension PAD (peripheral artery disease) - Surgical History Surgical History: Surgical History (Last Reviewed 05/24/18 @ 05:49 by Estela Hernandez MD) H/O vascular surgery - Family History Family History: Family History (Last Reviewed 05/24/18 @ 05:49 by Estela Hernandez MD) Other Diabetes - Social History I have reviewed the patient's Social History: Yes - Tobacco History Second Hand Smoke Exposure: No Tobacco Use In Past 30 Days: No Smoking Status: Former smoker Tobacco Type: Cigarettes - Alcohol History How Often Do You Have a Drink Containing Alcohol: Never - Substance Use History Substance History: No History of Abuse - Travel History Recent Travel in the [place] Within the Last 8 Weeks: No Recent Travel Out of the Country Within the Last 8 Weeks: No - Immunization History Tetanus Immunization: Unsure Medications and Allergies Active Medications: Active Medications Acetaminophen (Tylenol) 650 mg PO Q4H PRN PRN Reason: Temp > 100.4, Pain scale 1-2 Last Admin: 05/24/18 05:55 Dose: 650 mg Hydrocodone Bitart/Acetaminophen (Flinton 10/325) 1 tab PO Q6H PRN PRN Reason: Pain scale 3-10 Last Admin: 05/23/18 21:00 Dose: 1 tab Al Hydroxide/Mg Hydroxide (Milk Of Cheryl Likarla) 30 ml PO Q12H PRN PRN Reason: Mild Constipation Albuterol (Duoneb Neb (Genet)) 1 ampul NEB Q4HR NEB [facility] Last Admin: 05/24/18 03:50 Dose: 1 ampul Aspirin (Ecotrin) 81 mg PO DAILY [facility] Last Admin: 05/23/18 09:16 Dose: 81 mg Atorvastatin Calcium (Lipitor) 80 mg PO HS [facility] Last Admin: 05/23/18 21:02 Dose: 80 mg Benzonatate (Tessalon Perles) 100 mg PO Q8H PRN PRN Reason: COUGH Bisacodyl (Dulcolax Supp) 10 mg RECTAL DAILY PRN PRN Reason: SEVERE CONSITIPATION Carvedilol (Coreg) 12.5 mg PO BID [facility] Last Admin: 05/23/18 21:03 Dose: 12.5 mg Clopidogrel Bisulfate (Plavix) 75 mg PO DAILY [facility] Last Admin: 05/23/18 09:16 Dose: 75 mg Dextrose (D50w Vial) 50 ml IV.PUSH UNSCH PRN PRN Reason: PER HYPOGLYCEMIA PROTOCOL Enoxaparin Sodium (Lovenox Inj) 30 mg SQ DAILY [facility] Last Admin: 05/23/18 09:14 Dose: 30 mg Famotidine (Pepcid) 10 mg PO BID [facility] Last Admin: 05/23/18 21:01 Dose: 10 mg Furosemide (Lasix Inj) 40 mg IV.PUSH BID@0900,1800 [facility] Last Admin: 05/23/18 19:49 Dose: 40 mg Glucagon (Glucagon Inj) 1 mg OTHER PRN PRN PRN Reason: for Hypoglycemia Protocol Insulin Aspart (Novolog Insulin Correctional Sugar Inj) 0 unit SQ ACHS AND 3AM GENET; Protocol Last Admin: 05/24/18 04:56 Dose: 10 unit Insulin Detemir (Levemir Inj) 20 unit SQ BID [facility] Last Admin: 05/23/18 21:00 Dose: 20 unit Lactulose (Lactulose Liq) 30 ml PO DAILY PRN PRN Reason: SEVERE CONSITIPATION Lisinopril (Prinivil) 2.5 mg PO DAILY [facility] Last Admin: 05/23/18 09:14 Dose: 2.5 mg Ondansetron HCl (Zofran Inj) 4 mg IV.PUSH Q6H PRN PRN Reason: NAUSEA OR VOMITING Pregabalin (Lyrica) 75 mg PO BID [facility] Last Admin: 05/23/18 21:00 Dose: 75 mg Senna/Docusate Sodium (Abiola-Colace) 1 tab PO BID [facility] Last Admin: 05/23/18 21:03 Dose: 1 tab Sennosides (Senokot) 17.2 mg PO Q12H PRN PRN Reason: Moderate Constipation Sodium Chloride (Ns Flush) 2 ml IV.FLUSH PRN PRN PRN Reason: FLUSH AFTER USING IV ACCESS Sodium Chloride (Ns Flush) 2 ml IV.FLUSH BID [facility] Last Admin: 05/23/18 21:03 Dose: 2 ml Tamsulosin HCl (Flomax) 0.4 mg PO HS [facility] Last Admin: 05/23/18 21:00 Dose: 0.4 mg Tiotropium [place] (Spiriva 18 Mcg Inh) 18 mcg INH DAILY [facility] Last Admin: 05/23/18 19:48 Dose: Not Given Allergies Allergy/AdvReac Type Severity Reaction Status Date / Time No Known Allergies Allergy Verified 03/27/18 10:29 Home Medications Medication Instructions Recorded Confirmed Type hydrocodone-acetaminophen [Flinton] 1 tab PO Q6H 01/15/18 05/22/18 History insulin regular human [Humulin R 1 sliding scale dose SUB-Q UD 01/15/18 History Regular U-100 Insuln] lidocaine [Lidocaine Pain Relief] 1 patch TOPICAL Q8H 01/15/18 05/22/18 History ranitidine HCl [Zantac] 150 mg PO BID 01/15/18 05/22/18 History sitagliptin-metformin [Janumet] 1 tab PO DAILY 01/15/18 05/22/18 History tamsulosin [Flomax] 0.4 mg PO HS 01/15/18 05/22/18 History Physical Exam Vital signs: Vital Signs 05/23/18 07:00 05/23/18 08:00 05/23/18 09:00 Temperature 98.0 F Pulse Rate 74 70 74 Respiratory Rate 20 Blood Pressure 124/66 Pulse Oximetry 98 05/23/18 10:00 05/23/18 11:00 05/23/18 12:00 Temperature 98.2 F Pulse Rate 74 69 72 Respiratory Rate 20 Blood Pressure 118/51 L Pulse Oximetry 98 05/23/18 13:00 05/23/18 14:00 05/23/18 15:00 Temperature Pulse Rate 72 82 74 Respiratory Rate Blood Pressure Pulse Oximetry 05/23/18 16:00 05/23/18 16:07 05/23/18 17:00 Temperature 98.4 F Pulse Rate 76 81 76 Respiratory Rate 18 16 Blood Pressure 126/58 L Pulse Oximetry 98 05/23/18 18:00 05/23/18 19:00 05/23/18 20:00 Temperature 98.6 F Pulse Rate 84 92 H 80 Respiratory Rate 18 Blood Pressure 150/79 H Pulse Oximetry 97 05/23/18 20:21 05/23/18 21:00 05/23/18 22:00 Temperature Pulse Rate 83 90 86 Respiratory Rate 18 Blood Pressure Pulse Oximetry 95 05/23/18 23:00 05/23/18 23:39 05/24/18 00:00 Temperature 98.5 F Pulse Rate 85 78 80 Respiratory Rate 18 16 Blood Pressure 110/49 L Pulse Oximetry 97 05/24/18 01:00 05/24/18 02:00 05/24/18 03:00 Temperature Pulse Rate 80 63 77 Respiratory Rate Blood Pressure Pulse Oximetry 05/24/18 03:50 05/24/18 04:00 05/24/18 05:00 Temperature 98.4 F Pulse Rate 74 78 74 Respiratory Rate 18 18 Blood Pressure 131/62 Pulse Oximetry 99 05/24/18 06:00 Temperature Pulse Rate 75 Respiratory Rate Blood Pressure Pulse Oximetry Intake & Output 05/23/18 05/23/18 05/24/18 06:59 18:59 06:59 Intake Total 480 / 480 Output Total 300 / 300 Balance 180 / 180 Weight 106 kg Intake: Oral 480 / 480 Output: Urine 300 / 300 Other: Date of Last Bowel Movement 05/22/18 - Constitutional no acute distress - Routine HEENT Exam Head: Present: normocephalic, atraumatic Eye: Present: EOMI, PERRL, normal accommodation ENT: Present: mucous membranes moist - Routine Neck Exam Present: JVD - Routine Respiratory Exam Present: crackles - Routine Cardiovascular Exam Present: RRR, S1, S2, murmur - Routine Abdominal Exam Present: soft, normoactive bowel sounds. Absent: tenderness - Routine Extremities Exam Present: edema, pulses intact - Routine Skin Exam Present: intact - Routine Neurological Exam Present: alert, oriented X3, CN II-XII intact - Routine Psychiatric Exam Present: normal affect - Urinary Catheter Management Indwelling Urethral Catheter Cath placed during this visit: yes Reason for continuing: Hourly intake/output Insertion date: 05/22/18 Insertion time: 12:37 Results - Labs CBC & Chem 7: 05/23/18 01:09 05/23/18 01:09 Labs: Laboratory Results - last 24 hr 05/23/18 05/23/18 05/23/18 01:09 01:09 08:35 POC Glucose 139 H Hemoglobin A1c 10.8 H Triglycerides 160 H Cholesterol 116 L LDL Cholesterol, Calc 49 HDL Cholesterol 35.4 L Cholesterol/HDL Ratio 3.27 TSH 1.800 05/23/18 05/23/18 05/23/18 11:58 16:17 21:16 POC Glucose 205 H 209 H 288 H Hemoglobin A1c Triglycerides Cholesterol LDL Cholesterol, Calc HDL Cholesterol Cholesterol/HDL Ratio TSH 05/24/18 03:36 POC Glucose 234 H Hemoglobin A1c Triglycerides Cholesterol LDL Cholesterol, Calc HDL Cholesterol Cholesterol/HDL Ratio TSH - Imaging Impressions Chest X-Ray 05/23/18 06:00 CONCLUSION: Stable appearance of congestive heart failure with pulmonary edema and bilateral pleural effusions. Assessment and Plan - Assessment (1) Hyperlipidemia Code(s): E78.5 - Hyperlipidemia, unspecified Status: Acute (2) DM2 (diabetes mellitus, type 2) Code(s): E11.9 - Type 2 diabetes mellitus without complications Status: Acute (3) HTN (hypertension) Code(s): I10 - Essential (primary) hypertension Status: Acute (4) CHF (congestive heart failure), NYHA class IV Code(s): I50.9 - Heart failure, unspecified Status: Acute (5) Chronic kidney disease Code(s): N18.9 - Chronic kidney disease, unspecified Status: Acute (6) NSTEMI (non-ST elevated myocardial infarction) Code(s): I21.4 - Non-ST elevation (NSTEMI) myocardial infarction Status: Acute (7) Ischemic cardiomyopathy Code(s): I25.5 - Ischemic cardiomyopathy Status: Acute - Plan 63y/o male presents again with CHF and known ischemic cardiomyopathy. His risk for CABG is extremely high as he has diffuse CAD with fair to poor distal targets. He also has known severe COPD. I will request an ECHO and a new set of PFTs with bronchodilator therapy to re-assess risk. Will follow. 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43 - Acute on chronic combined systolic (congestive) and diastolic (congestive) heart failure (5) Chronic kidney disease Qualifiers: Chronic kidney disease stage: unspecified stage Qualified Code(s): N18.9 - Chronic kidney disease, unspecified
[2018-05-24 07:36] LABS: Baso % (Auto) 0.4 % (0.0-2.0); Eos # (Auto) 0.3 th/mm3 (0.0-0.4); Eos % (Auto) 3.5 % (0.0-4.0); Hematocrit 25.9 % (39.0-51.0); Hemoglobin 8.6 gm/dL (13.0-17.0); Lymph # (Auto) 1.9 th/mm3 (1.0-4.8); Lymph % (Auto) 23.4 % (9.0-44.0); Mean Corpuscular HGB Conc 33.3 % (32.0-36.0); Mean Corpuscular Volume 90.1 fL (80.0-100.0); Mean Platelet Volume 8.1 fL (7.0-11.0); Mono # (Auto) 0.9 th/mm3 (0.0-0.9); Mono % (Auto) 10.9 % (0.0-8.0); Neut # (Auto) 5.1 th/mm3 (1.8-7.7); Neut % (Auto) 61.8 % (16.0-70.0); Platelet Count 234 th/mm3 (150-450); Red Blood Count 2.87 mil/mm3 (4.50-5.90); Red Cell Distribution Width 15.9 % (11.6-17.2); White Blood Count 8.2 th/mm3 (4.0-11.0)
[2018-05-24 08:01] LABS: Anion Gap 6 meq/L (5-15); Aspartate Aminotransferase 10 U/L (15-37); Blood Urea Nitrogen 44 mg/dL (7-18); Calcium 8.4 mg/dL (8.5-10.1); Carbon Dioxide 28.8 meq/L (21.0-32.0); Chloride 105 meq/L (98-107); Glomerular Filtration Rate 27 mL/min (>89); Glucose,Random 201 mg/dL (74-106); Potassium 4.3 meq/L (3.5-5.1); Sodium 140 meq/L (136-145)
[2018-05-24 08:05] LABS: Alanine Aminotransferase 23 U/L (12-78); Alkaline Phosphatase 180 U/L (45-117); Total Protein 5.4 g/dL (6.4-8.2)
--- NOTE | 2018-05-24 09:44 | P.PNCA ---
Subjective Interval history: Pt breathing better, of bipap, but still w/ a lot of edema abdm/scrotal region Medications and Allergies Active Medications: Active Medications Acetaminophen (Tylenol) 650 mg PO Q4H PRN PRN Reason: Temp > 100.4, Pain scale 1-2 Last Admin: 05/24/18 05:55 Dose: 650 mg Hydrocodone Bitart/Acetaminophen ([place] 10/325) 1 tab PO Q6H PRN PRN Reason: Pain scale 3-10 Last Admin: 05/23/18 21:00 Dose: 1 tab Al Hydroxide/Mg Hydroxide (Milk Of Cheryl Liq) 30 ml PO Q12H PRN PRN Reason: Mild Constipation Albuterol (Duoneb Neb ([facility])) 1 ampul NEB Q4HR NEB [facility] Last Admin: 05/24/18 09:07 Dose: 1 ampul Aspirin (Ecotrin) 81 mg PO DAILY [facility] Last Admin: 05/23/18 09:16 Dose: 81 mg Atorvastatin Calcium (Lipitor) 80 mg PO HS [facility] Last Admin: 05/23/18 21:02 Dose: 80 mg Benzonatate (Tessalon Perles) 100 mg PO Q8H PRN PRN Reason: COUGH Last Admin: 05/24/18 06:46 Dose: 100 mg Bisacodyl (Dulcolax Supp) 10 mg RECTAL DAILY PRN PRN Reason: SEVERE CONSITIPATION Carvedilol (Coreg) 12.5 mg PO BID [facility] Last Admin: 05/23/18 21:03 Dose: 12.5 mg Clopidogrel Bisulfate (Plavix) 75 mg PO DAILY [facility] Last Admin: 05/23/18 09:16 Dose: 75 mg Dextrose (D50w Vial) 50 ml IV.PUSH UNSCH PRN PRN Reason: PER HYPOGLYCEMIA PROTOCOL Enoxaparin Sodium (Lovenox Inj) 30 mg SQ DAILY [facility] Last Admin: 05/23/18 09:14 Dose: 30 mg Famotidine (Pepcid) 10 mg PO BID [facility] Last Admin: 05/23/18 21:01 Dose: 10 mg Furosemide (Lasix Inj) 40 mg IV.PUSH BID@0900,1800 [facility] Last Admin: 05/23/18 19:49 Dose: 40 mg Glucagon (Glucagon Inj) 1 mg OTHER PRN PRN PRN Reason: for Hypoglycemia Protocol Insulin Aspart (Novolog Insulin Correctional Sugar Inj) 0 unit SQ ACHS AND 3AM [place]; Protocol Last Admin: 05/24/18 04:56 Dose: 10 unit Insulin Detemir (Levemir Inj) 20 unit SQ BID [facility] Last Admin: 05/23/18 21:00 Dose: 20 unit Lactulose (Lactulose Liq) 30 ml PO DAILY PRN PRN Reason: SEVERE CONSITIPATION Lisinopril (Prinivil) 2.5 mg PO DAILY [facility] Last Admin: 05/23/18 09:14 Dose: 2.5 mg Ondansetron HCl (Zofran Inj) 4 mg IV.PUSH Q6H PRN PRN Reason: NAUSEA OR VOMITING Pregabalin (Lyrica) 75 mg PO BID [facility] Last Admin: 05/23/18 21:00 Dose: 75 mg Senna/Docusate Sodium (Abiola-Colace) 1 tab PO BID [facility] Last Admin: 05/23/18 21:03 Dose: 1 tab Sennosides (Senokot) 17.2 mg PO Q12H PRN PRN Reason: Moderate Constipation Sodium Chloride (Ns Flush) 2 ml IV.FLUSH PRN PRN PRN Reason: FLUSH AFTER USING IV ACCESS Sodium Chloride (Ns Flush) 2 ml IV.FLUSH BID [facility] Last Admin: 05/23/18 21:03 Dose: 2 ml Tamsulosin HCl (Flomax) 0.4 mg PO HS [facility] Last Admin: 05/23/18 21:00 Dose: 0.4 mg Tiotropium Mccormick (Spiriva 18 Mcg Inh) 18 mcg INH DAILY [facility] Last Admin: 05/23/18 19:48 Dose: Not Given Allergies Allergy/AdvReac Type Severity Reaction Status Date / Time No Known Allergies Allergy Verified 03/27/18 10:29 Home Medications Medication Instructions Recorded Confirmed Type hydrocodone-acetaminophen [[place]] 1 tab PO Q6H 01/15/18 05/22/18 History insulin regular human [Humulin R 1 sliding scale dose SUB-Q UD 01/15/18 History Regular U-100 Insuln] lidocaine [Lidocaine Pain Relief] 1 patch TOPICAL Q8H 01/15/18 05/22/18 History ranitidine HCl [Zantac] 150 mg PO BID 01/15/18 05/22/18 History sitagliptin-metformin [Janumet] 1 tab PO DAILY 01/15/18 05/22/18 History tamsulosin [Flomax] 0.4 mg PO HS 01/15/18 05/22/18 History Physical Exam Vital signs: Vital Signs 05/23/18 10:00 05/23/18 11:00 05/23/18 12:00 Temperature 98.2 F Pulse Rate 74 69 72 Respiratory Rate 20 Blood Pressure 118/51 L Pulse Oximetry 98 05/23/18 13:00 05/23/18 14:00 05/23/18 15:00 Temperature Pulse Rate 72 82 74 Respiratory Rate Blood Pressure Pulse Oximetry 05/23/18 16:00 05/23/18 16:07 05/23/18 17:00 Temperature 98.4 F Pulse Rate 76 81 76 Respiratory Rate 18 16 Blood Pressure 126/58 L Pulse Oximetry 98 05/23/18 18:00 05/23/18 19:00 05/23/18 20:00 Temperature 98.6 F Pulse Rate 84 92 H 80 Respiratory Rate 18 Blood Pressure 150/79 H Pulse Oximetry 97 05/23/18 20:21 05/23/18 21:00 05/23/18 22:00 Temperature Pulse Rate 83 90 86 Respiratory Rate 18 Blood Pressure Pulse Oximetry 95 05/23/18 23:00 05/23/18 23:39 05/24/18 00:00 Temperature 98.5 F Pulse Rate 85 78 80 Respiratory Rate 18 16 Blood Pressure 110/49 L Pulse Oximetry 97 05/24/18 01:00 05/24/18 02:00 05/24/18 03:00 Temperature Pulse Rate 80 63 77 Respiratory Rate Blood Pressure Pulse Oximetry 05/24/18 03:50 05/24/18 04:00 05/24/18 05:00 Temperature 98.4 F Pulse Rate 74 78 74 Respiratory Rate 18 18 Blood Pressure 131/62 Pulse Oximetry 99 05/24/18 06:00 05/24/18 09:07 05/24/18 09:09 Temperature Pulse Rate 75 76 Respiratory Rate 24 Blood Pressure Pulse Oximetry 96 Intake & Output 05/23/18 05/24/18 05/24/18 18:59 06:59 18:59 Intake Total 480 / 480 Output Total 300 / 300 Balance 180 / 180 Weight 105.8 kg Intake: Oral 480 / 480 Output: Urine 300 / 300 Other: Date of Last Bowel Movement 05/22/18 - Constitutional no acute distress - Routine HEENT Exam Head: Present: normocephalic Eye: Present: EOMI ENT: Present: mucous membranes moist - Routine Neck Exam Present: supple - Routine Respiratory Exam Present: CTA bilaterally - Routine Cardiovascular Exam Present: RRR. Absent: murmur - Routine Abdominal Exam Present: distended - Routine Exam Scrotal: Present: swelling - Routine Extremities Exam Comments: trace to 1+ LE edema - Routine Neurological Exam Present: oriented X3 - Urinary Catheter Management Indwelling Urethral Catheter Cath placed during this visit: yes Reason for continuing: Hourly intake/output Insertion date: 05/22/18 Insertion time: 12:37 Results 05/24/18 05:47 05/24/18 05:47 Cardiac Enzymes 05/22/18 05/22/18 05/22/18 Range/Units 11:25 11:25 18:55 AST 12 L (15-37) U/L Troponin I 0.05 0.45 H (0.02-0.05) ng/mL B-Natriuretic Peptide 1887 H (0-100) pg/mL 05/23/18 05/23/18 05/23/18 Range/Units 01:09 01:09 01:09 AST 9 L (15-37) U/L Troponin I 0.41 H (0.02-0.05) ng/mL B-Natriuretic Peptide 2102 H (0-100) pg/mL 05/24/18 05/24/18 Range/Units 05:47 05:47 AST 10 L (15-37) U/L Troponin I (0.02-0.05) ng/mL B-Natriuretic Peptide 1537 H (0-100) pg/mL Coagulation 05/22/18 05/23/18 05/24/18 Range/Units 11:25 01:09 05:47 B-Natriuretic Peptide 1887 H 2102 H 1537 H (0-100) pg/mL Lipids 05/23/18 Range/Units 01:09 Triglycerides 160 H (42-150) mg/dL Cholesterol 116 L (120-200) mg/dL HDL Cholesterol 35.4 L (40.0-60.0) mg/dL Cholesterol/HDL Ratio 3.27 Ratio CBC 05/22/18 05/23/18 05/24/18 Range/Units 11:25 01:09 05:47 WBC 8.6 8.1 8.2 (4.0-11.0) th/mm3 RBC 3.43 L 3.17 L 2.87 L (4.50-5.90) mil/mm3 Hgb 10.5 L 9.4 L 8.6 L (13.0-17.0) gm/dL Hct 31.5 L 28.0 L 25.9 L (39.0-51.0) % Plt Count 223 228 234 (150-450) th/mm3 Neut # (Auto) 6.4 5.1 5.1 (1.8-7.7) th/mm3 Lymph # (Auto) 1.4 1.8 1.9 (1.0-4.8) th/mm3 [place] # (Auto) 0.7 0.9 0.9 (0.0-0.9) th/mm3 Eos # (Auto) 0.1 0.2 0.3 (0.0-0.4) th/mm3 Baso # (Auto) 0.1 0.0 0.0 (0.0-0.2) th/mm3 Comprehensive Metabolic Panel 05/22/18 05/23/18 05/24/18 Range/Units 11:25 01:09 05:47 Sodium 137 142 140 (136-145) meq/L Potassium 5.6 H 4.3 D 4.3 (3.5-5.1) meq/L Chloride 104 107 105 (98-107) meq/L Carbon Dioxide 23.3 30.7 28.8 (21.0-32.0) meq/L BUN 33 H 38 H 44 H (7-18) mg/dL Creatinine 1.88 H 2.17 H 2.42 H (0.60-1.30) mg/dL Calcium 8.1 L 8.1 L 8.4 L (8.5-10.1) mg/dL AST 12 L 9 L 10 L (15-37) U/L ALT 35 25 23 (12-78) U/L Alkaline Phosphatase 258 H 205 H 180 H (45-117) U/L Total Protein 6.5 5.5 L D 5.4 L (6.4-8.2) g/dL Albumin 2.6 L 2.1 L 2.0 L (3.4-5.0) g/dL Intake and Output 05/23/18 05/24/18 05/24/18 22:59 06:59 14:59 Other: Date of Last Bowel Movement 05/22/18 Weight 105.8 kg - Imaging and Cardiology Imaging: Impressions Chest X-Ray 05/22/18 11:18 CONCLUSION: Radiographic findings consistent with stable appearance of congestive heart failure with progressive bilateral airspace opacities consistent with atelectasis versus airspace consolidation. Chest X-Ray 05/23/18 06:00 CONCLUSION: Stable appearance of congestive heart failure with pulmonary edema and bilateral pleural effusions. Assessment and Plan - Assessment (1) Ischemic cardiomyopathy Code(s): I25.5 - Ischemic cardiomyopathy Status: Acute Plan: ef < 20%, on rené/bb;for nuclear viability study today(cr too high for MRI), if some viability would recommend cabg. (2) CHF (congestive heart failure), NYHA class IV Code(s): I50.9 - Heart failure, unspecified Status: Acute Plan: improving on lasix (3) Edema Code(s): R60.9 - Edema, unspecified Status: Acute (4) Cardiorenal syndrome Code(s): I13.10 - Hypertensive heart and chronic kidney disease without heart failure, with stage 1 through stage 4 chronic kidney disease, or unspecified chronic kidney disease Status: Acute Plan: has diuresed some (though still overloaded), though now with worsening cr; will ask for renal assistance. - Plan 1. Ischemic cardiomyopathy, ejection fraction less than 20%. 2. Chronic systolic congestive heart failure. 3. Severe multivessel coronary disease. 4. Hypertension. 5. Hyperlipidemia prognosis lis likely poor, appreciate cv surgery eval and will ask renal to give input as well (2) CHF (congestive heart failure), NYHA class IV Qualifiers: Congestive heart failure type: combined Congestive heart failure chronicity: acute on chronic Qualified Code(s): I50.43 - Acute on chronic combined systolic (congestive) and diastolic (congestive) heart failure
[2018-05-24] MEDS: Insulin Detemir Inj 1,000 UNIT/10 ML Vial SQ SCH ×2 (10:43→21:04)
[2018-05-24] MEDS: Lisinopril 5 MG Tablet PO SCH (10:44)
[2018-05-24] MEDS: Carvedilol 12.5 MG Tablet PO SCH ×2 (10:45→21:03)
[2018-05-24] MEDS: Famotidine 20 MG Tablet PO SCH ×2 (10:45→21:03)
[2018-05-24] MEDS: Senna/Docusate Sodium 8.6/50 MG Tablet PO SCH ×2 (10:46→21:03)
[2018-05-24] MEDS: Pregabalin 75 MG Capsule PO SCH ×2 (10:47→21:03)
[2018-05-24] MEDS: Enoxaparin Inj 30 MG/0.3 ML Syringe SQ SCH (10:49)
--- NOTE | 2018-05-24 11:57 | P.PNFP ---
Subjective Interval history: Doing well, no complaints today. On 4 L NC O2. States he doesn't think he needs it, does fine without it. Satting 96% on it. Notices improvement in abdominal distension. Urine output <0.5L over 24 hrs, wt change of -.2 kg On BIPAP last night <Abid Marlee Boothe N - 05/24/18 11:57> Results - Labs Result diagrams: 05/24/18 05:47 05/24/18 05:47 <Jose Monroe - 05/24/18 17:15> Abnormal lab results 05/23/18 05/24/18 05/24/18 Range/Units 21:16 03:36 05:47 RBC 2.87 L (4.50-5.90) mil/mm3 Hgb 8.6 L (13.0-17.0) gm/dL Hct 25.9 L (39.0-51.0) % Howell % (Auto) 10.9 H (0.0-8.0) % BUN (7-18) mg/dL Creatinine (0.60-1.30) mg/dL Estimated GFR (>89) mL/min POC Glucose 288 H 234 H (68-110) mg/dl Random Glucose (74-106) mg/dL Calcium (8.5-10.1) mg/dL AST (15-37) U/L Alkaline Phosphatase (45-117) U/L B-Natriuretic Peptide (0-100) pg/mL Total Protein (6.4-8.2) g/dL Albumin (3.4-5.0) g/dL 05/24/18 05/24/18 05/24/18 Range/Units 05:47 05:47 08:19 RBC (4.50-5.90) mil/mm3 Hgb (13.0-17.0) gm/dL Hct (39.0-51.0) % Howell % (Auto) (0.0-8.0) % BUN 44 H (7-18) mg/dL Creatinine 2.42 H (0.60-1.30) mg/dL Estimated GFR 27 L (>89) mL/min POC Glucose 145 H (68-110) mg/dl Random Glucose 201 H (74-106) mg/dL Calcium 8.4 L (8.5-10.1) mg/dL AST 10 L (15-37) U/L Alkaline Phosphatase 180 H (45-117) U/L B-Natriuretic Peptide 1537 H (0-100) pg/mL Total Protein 5.4 L (6.4-8.2) g/dL Albumin 2.0 L (3.4-5.0) g/dL 05/24/18 Range/Units 14:32 RBC (4.50-5.90) mil/mm3 Hgb (13.0-17.0) gm/dL Hct (39.0-51.0) % Howell % (Auto) (0.0-8.0) % BUN (7-18) mg/dL Creatinine (0.60-1.30) mg/dL Estimated GFR (>89) mL/min POC Glucose 172 H (68-110) mg/dl Random Glucose (74-106) mg/dL Calcium (8.5-10.1) mg/dL AST (15-37) U/L Alkaline Phosphatase (45-117) U/L B-Natriuretic Peptide (0-100) pg/mL Total Protein (6.4-8.2) g/dL Albumin (3.4-5.0) g/dL Short CBC 05/24/18 Range/Units 05:47 WBC 8.2 (4.0-11.0) th/mm3 Hgb 8.6 L (13.0-17.0) gm/dL Hct 25.9 L (39.0-51.0) % Plt Count 234 (150-450) th/mm3 BMP 05/24/18 05:47 Sodium 140 Potassium 4.3 Chloride 105 Carbon Dioxide 28.8 BUN 44 H Creatinine 2.42 H Calcium 8.4 L Liver Function 05/24/18 Range/Units 05:47 Total Bilirubin 0.3 (0.2-1.0) mg/dL AST 10 L (15-37) U/L ALT 23 (12-78) U/L Alkaline Phosphatase 180 H (45-117) U/L Albumin 2.0 L (3.4-5.0) g/dL <Jose Monroe - 05/24/18 17:15> Abnormal lab results 05/23/18 05/23/18 05/23/18 Range/Units 01:09 01:09 11:58 RBC (4.50-5.90) mil/mm3 Hgb (13.0-17.0) gm/dL Hct (39.0-51.0) % Howell % (Auto) (0.0-8.0) % BUN (7-18) mg/dL Creatinine (0.60-1.30) mg/dL Estimated GFR (>89) mL/min POC Glucose 205 H (68-110) mg/dl Random Glucose (74-106) mg/dL Hemoglobin A1c 10.8 H (4.3-6.0) % Calcium (8.5-10.1) mg/dL AST (15-37) U/L Alkaline Phosphatase (45-117) U/L B-Natriuretic Peptide (0-100) pg/mL Total Protein (6.4-8.2) g/dL Albumin (3.4-5.0) g/dL Triglycerides 160 H (42-150) mg/dL Cholesterol 116 L (120-200) mg/dL HDL Cholesterol 35.4 L (40.0-60.0) mg/dL 05/23/18 05/23/18 05/24/18 Range/Units 16:17 21:16 03:36 RBC (4.50-5.90) mil/mm3 Hgb (13.0-17.0) gm/dL Hct (39.0-51.0) % Howell % (Auto) (0.0-8.0) % BUN (7-18) mg/dL Creatinine (0.60-1.30) mg/dL Estimated GFR (>89) mL/min POC Glucose 209 H 288 H 234 H (68-110) mg/dl Random Glucose (74-106) mg/dL Hemoglobin A1c (4.3-6.0) % Calcium (8.5-10.1) mg/dL AST (15-37) U/L Alkaline Phosphatase (45-117) U/L B-Natriuretic Peptide (0-100) pg/mL Total Protein (6.4-8.2) g/dL Albumin (3.4-5.0) g/dL Triglycerides (42-150) mg/dL Cholesterol (120-200) mg/dL HDL Cholesterol (40.0-60.0) mg/dL 05/24/1818 05/24/18 Range/Units 05:47 05:47 05:47 RBC 2.87 L (4.50-5.90) mil/mm3 Hgb 8.6 L (13.0-17.0) gm/dL Hct 25.9 L (39.0-51.0) % Howell % (Auto) 10.9 H (0.0-8.0) % BUN 44 H (7-18) mg/dL Creatinine 2.42 H (0.60-1.30) mg/dL Estimated GFR 27 L (>89) mL/min POC Glucose (68-110) mg/dl Random Glucose 201 H (74-106) mg/dL Hemoglobin A1c (4.3-6.0) % Calcium 8.4 L (8.5-10.1) mg/dL AST 10 L (15-37) U/L Alkaline Phosphatase 180 H (45-117) U/L B-Natriuretic Peptide 1537 H (0-100) pg/mL Total Protein 5.4 L (6.4-8.2) g/dL Albumin 2.0 L (3.4-5.0) g/dL Triglycerides (42-150) mg/dL Cholesterol (120-200) mg/dL HDL Cholesterol (40.0-60.0) mg/dL 05/24/18 Range/Units 08:19 RBC (4.50-5.90) mil/mm3 Hgb (13.0-17.0) gm/dL Hct (39.0-51.0) % Howell % (Auto) (0.0-8.0) % BUN (7-18) mg/dL Creatinine (0.60-1.30) mg/dL Estimated GFR (>89) mL/min POC Glucose 145 H (68-110) mg/dl Random Glucose (74-106) mg/dL Hemoglobin A1c (4.3-6.0) % Calcium (8.5-10.1) mg/dL AST (15-37) U/L Alkaline Phosphatase (45-117) U/L B-Natriuretic Peptide (0-100) pg/mL Total Protein (6.4-8.2) g/dL Albumin (3.4-5.0) g/dL Triglycerides (42-150) mg/dL Cholesterol (120-200) mg/dL HDL Cholesterol (40.0-60.0) mg/dL Short CBC 05/24/18 Range/Units 05:47 WBC 8.2 (4.0-11.0) th/mm3 Hgb 8.6 L (13.0-17.0) gm/dL Hct 25.9 L (39.0-51.0) % Plt Count 234 (150-450) th/mm3 BMP 05/24/18 05:47 Sodium 140 Potassium 4.3 Chloride 105 Carbon Dioxide 28.8 BUN 44 H Creatinine 2.42 H Calcium 8.4 L Liver Function 05/24/18 Range/Units 05:47 Total Bilirubin 0.3 (0.2-1.0) mg/dL AST 10 L (15-37) U/L ALT 23 (12-78) U/L Alkaline Phosphatase 180 H (45-117) U/L Albumin 2.0 L (3.4-5.0) g/dL <Marlee Rhodes - 05/24/18 11:57> - Imaging Impressions Myocardial Perfusion Scan Nuc Med 05/24/18 08:34 CONCLUSION: 1. Fixed defects involving the LAD and RCA distributions consistent with infarcts. 2. Extensive global hypokinesis with left ventricular ejection fraction equaling 32%. 3. No reversible defect to suggest ischemia. <Jose Monroe - 05/24/18 17:15> Physical Exam Vital signs: Vital Signs 05/23/18 18:00 05/23/18 19:00 05/23/18 20:00 Temperature 98.6 F Pulse Rate 84 92 H 80 Respiratory Rate 18 Blood Pressure 150/79 H Pulse Oximetry 97 05/23/18 20:21 05/23/18 21:00 05/23/18 22:00 Temperature Pulse Rate 83 90 86 Respiratory Rate 18 Blood Pressure Pulse Oximetry 95 05/23/18 23:00 05/23/18 23:39 05/24/18 00:00 Temperature 98.5 F Pulse Rate 85 78 80 Respiratory Rate 18 16 Blood Pressure 110/49 L Pulse Oximetry 97 05/24/18 01:00 05/24/18 02:00 05/24/18 03:00 Temperature Pulse Rate 80 63 77 Respiratory Rate Blood Pressure Pulse Oximetry 05/24/18 03:50 05/24/18 04:00 05/24/18 05:00 Temperature 98.4 F Pulse Rate 74 78 74 Respiratory Rate 18 18 Blood Pressure 131/62 Pulse Oximetry 99 05/24/18 06:00 05/24/18 09:07 05/24/18 09:09 Temperature Pulse Rate 75 76 Respiratory Rate 24 Blood Pressure Pulse Oximetry 96 05/24/18 14:30 05/24/18 15:18 05/24/18 15:19 Temperature 97.6 F Pulse Rate 79 84 Respiratory Rate 18 22 Blood Pressure 130/77 Pulse Oximetry 98 98 Intake & Output 05/23/18 05/24/18 05/24/18 18:59 06:59 18:59 Intake Total 480 / 480 Output Total 300 / 300 Balance 180 / 180 Weight 105.8 kg Intake: Oral 480 / 480 Output: Urine 300 / 300 Other: Date of Last Bowel Movement 05/22/18 <Jose Monroe - 05/24/18 17:15> Vital Signs 05/23/18 12:00 05/23/18 13:00 05/23/18 14:00 Temperature 98.2 F Pulse Rate 72 72 82 Respiratory Rate 20 Blood Pressure 118/51 L Pulse Oximetry 98 05/23/18 15:00 05/23/18 16:00 05/23/18 16:07 Temperature 98.4 F Pulse Rate 74 76 81 Respiratory Rate 18 16 Blood Pressure 126/58 L Pulse Oximetry 98 05/23/18 17:00 05/23/18 18:00 05/23/18 19:00 Temperature Pulse Rate 76 84 92 H Respiratory Rate Blood Pressure Pulse Oximetry 05/23/18 20:00 05/23/18 20:21 05/23/18 21:00 Temperature 98.6 F Pulse Rate 80 83 90 Respiratory Rate 18 18 Blood Pressure 150/79 H Pulse Oximetry 97 95 05/23/18 22:00 05/23/18 23:00 05/23/18 23:39 Temperature Pulse Rate 86 85 78 Respiratory Rate 18 Blood Pressure Pulse Oximetry 05/24/18 00:00 05/24/18 01:00 05/24/18 02:00 Temperature 98.5 F Pulse Rate 80 80 63 Respiratory Rate 16 Blood Pressure 110/49 L Pulse Oximetry 97 05/24/18 03:00 05/24/18 03:50 05/24/18 04:00 Temperature 98.4 F Pulse Rate 77 74 78 Respiratory Rate 18 18 Blood Pressure 131/62 Pulse Oximetry 99 05/24/18 05:00 05/24/18 06:00 05/24/18 09:07 Temperature Pulse Rate 74 75 76 Respiratory Rate 24 Blood Pressure Pulse Oximetry 05/24/18 09:09 Temperature Pulse Rate Respiratory Rate Blood Pressure Pulse Oximetry 96 Intake & Output 05/23/18 05/24/18 05/24/18 18:59 06:59 18:59 Intake Total 480 / 480 Output Total 300 / 300 Balance 180 / 180 Weight 105.8 kg Intake: Oral 480 / 480 Output: Urine 300 / 300 Other: Date of Last Bowel Movement 05/22/18 <Abid R2,Marlee N - 05/24/18 11:57> Narrative: General: Obese male sitting up in bed, currently on NC Cardiovascular: Regular rate and rhythm without murmur Respiratory: Diffuse bibasilar crackles with occasional, soft wheezing Abdomen: significant distension noted, no fluid wave appreciated Extremities: 2+ pitting edema up the knees bilaterally, significantly swollen scrotum <Abid R2,Marlee N - 05/24/18 11:57> - Urinary Catheter Management Indwelling Urethral Catheter Cath placed during this visit: no <Jose Monroe - 05/24/18 17:15> yes <Abid R2,Marlee N - 05/24/18 11:57> Reason for continuing: Hourly intake/output <Abid R2,Marlee N - 05/24/18 11:57 > Insertion date: 05/22/18 <Abid R2,Marele N - 05/24/18 11:57> Insertion time: 12:37 <Abid R2,Marlee N - 05/24/18 11:57> Assessment and Plan - Assessment (1) Acute exacerbation of CHF (congestive heart failure) Code(s): I50.9 - Heart failure, unspecified Status: Deleted (2) COPD (chronic obstructive pulmonary disease) Code(s): J44.9 - Chronic obstructive pulmonary disease, unspecified Status: Acute (3) NSTEMI (non-ST elevated myocardial infarction) Code(s): I21.4 - Non-ST elevation (NSTEMI) myocardial infarction Status: Acute (4) Ischemic cardiomyopathy Code(s): I25.5 - Ischemic cardiomyopathy Status: Acute (5) CAD (coronary artery disease) Code(s): I25.10 - Atherosclerotic heart disease of [place] coronary artery without angina pectoris Status: Acute (6) DM2 (diabetes mellitus, type 2) Code(s): E11.9 - Type 2 diabetes mellitus without complications Status: Acute (7) HTN (hypertension) Code(s): I10 - Essential (primary) hypertension Status: Acute (8) Chronic kidney disease Code(s): N18.9 - Chronic kidney disease, unspecified Status: Acute (9) Nutrition, metabolism, and development symptoms Code(s): R63.8 - Other symptoms and signs concerning food and fluid intake Status: Acute <Jose Monroe - 05/24/18 17:15> (1) Acute exacerbation of CHF (congestive heart failure) Code(s): I50.9 - Heart failure, unspecified Status: Deleted Plan: -Improving High risk for CABG -Continue Lasix 40 mg IV twice daily -Con't to monitor I's and O's strictly with daily weights * Patient has an indwelling ureteral catheter -Fluid restriction 1.5 L -Salt restriction 2 g -Cardiology following, nuclear viability study today - Nephrology consulted to assist w/worsening Cr after significant diuresis - CT surgery following, appreciate recs (2) COPD (chronic obstructive pulmonary disease) Code(s): J44.9 - Chronic obstructive pulmonary disease, unspecified Status: Acute Plan: Con't Atrovent BID Spiriva daily Albuterol PRN O2 as needed Incentive spirometry BIPAP at night PFTs and echo ordered by CT surgery (3) NSTEMI (non-ST elevated myocardial infarction) Code(s): I21.4 - Non-ST elevation (NSTEMI) myocardial infarction Status: Acute Plan: troponins 0.05,0.45,0.41 See above (4) Ischemic cardiomyopathy Code(s): I25.5 - Ischemic cardiomyopathy Status: Acute Plan: -EF less than 20% -Continue beta-ed and JEREMY inhibitor -Cardiology on board * Plan for nuclear viability study to see if some viability will recommend CABG (5) CAD (coronary artery disease) Code(s): I25.10 - Atherosclerotic heart disease of [place] coronary artery without angina pectoris Status: Acute Plan: -Patient with history of previous CA -Continue aspirin and Plavix -Continue atorvastatin 80 mg p.o. HS (6) DM2 (diabetes mellitus, type 2) Code(s): E11.9 - Type 2 diabetes mellitus without complications Status: Acute Plan: Not well controlled. Check A1c, patient's last A1c was 14.2 in January 2017 Use of 35 units total of SSI over the last 12 hrs - Levemir insulin increased to 29 units BID - Med dose SSI (7) HTN (hypertension) Code(s): I10 - Essential (primary) hypertension Status: Acute Plan: -Continue with carvedilol 12.5 mg twice daily -Continue Lisinopril 2.5 mg daily (8) Chronic kidney disease Code(s): N18.9 - Chronic kidney disease, unspecified Status: Acute Plan: Improving from previous admissions. Creatinine: 1.88 on admission, 2.42 today Trending upward Nephro consulted (9) Nutrition, metabolism, and development symptoms Code(s): R63.8 - Other symptoms and signs concerning food and fluid intake Status: Acute Plan: Fluids: Oral fluids only, restrict to 1.5 L due to CHF Electrolytes: Monitor and replete as needed Nutrition: Cardiac and diabetic diet. Salt restricted 2g daily. <Marlee Rhodes - 05/24/18 11:28> - Assessment and Plan 63-year-old male presented with acute on chronic CHF exacerbation. Elevated BNP with bilateral 2+ pitting edema, distended abdomen, crackles bilaterally throughout all lung wat[place]. Patient was started on 40 IV Lasix twice daily and improved. Cardiology consulted due to ejection fraction of less than 20% and plan to perform nuclear viability study to determine if he needs a CABG. Patient also has diabetes, on Levemir 20 units twice daily, high dose sliding scale. ACS rule out was negative. <Marlee Rhodes - 05/24/18 11:57> - Attending Attestation Patient case discussed with resident physicians I have independently examined the patient I have read the above note and agree with the assessment and plan as discussed with me I was involved in all medical decision making for this patient Jose Monroe MD <Jose Monroe - 05/24/18 17:15> <Abid ShyannMarlee N - Last Filed: 05/24/18 11:28> (6) DM2 (diabetes mellitus, type 2) Qualifiers: Diabetes mellitus commercial analyst insulin use: with commercial analyst use Diabetes mellitus complication status: with circulatory complication Diabetes mellitus complication detail: with other circulatory complications Qualified Code(s): E11.59 - Type 2 diabetes mellitus with other circulatory complications; Z79.4 - financial supervisor (current) use of insulin (7) HTN (hypertension) Qualifiers: Hypertension type: essential hypertension Qualified Code(s): I10 - Essential (primary) hypertension (8) Chronic kidney disease Qualifiers: Chronic kidney disease stage: unspecified stage Qualified Code(s): N18.9 - Chronic kidney disease, unspecified <Jose Monroe - Last Filed: 05/24/18 17:15> (6) DM2 (diabetes mellitus, type 2) Qualifiers: Diabetes mellitus [facility] insulin use: with commercial analyst use Diabetes mellitus complication status: with circulatory complication Diabetes mellitus complication detail: with other circulatory complications Qualified Code(s): E11.59 - Type 2 diabetes mellitus with other circulatory complications; Z79.4 - financial supervisor (current) use of insulin (7) HTN (hypertension) Qualifiers: Hypertension type: essential hypertension Qualified Code(s): I10 - Essential (primary) hypertension (8) Chronic kidney disease Qualifiers: Chronic kidney disease stage: unspecified stage Qualified Code(s): N18.9 - Chronic kidney disease, unspecified <Abid Shyann,Marlee N - Last Filed: 05/24/18 11:28> (6) DM2 (diabetes mellitus, type 2) Qualifiers: Diabetes mellitus commercial analyst insulin use: with commercial analyst use Diabetes mellitus complication status: with circulatory complication Diabetes mellitus complication detail: with other circulatory complications Qualified Code(s): E11.59 - Type 2 diabetes mellitus with other circulatory complications; Z79.4 - financial supervisor (current) use of insulin (7) HTN (hypertension) Qualifiers: Hypertension type: essential hypertension Qualified Code(s): I10 - Essential (primary) hypertension (8) Chronic kidney disease Qualifiers: Chronic kidney disease stage: unspecified stage Qualified Code(s): N18.9 - Chronic kidney disease, unspecified <Jose Monroe - Last Filed: 05/24/18 17:15> (6) DM2 (diabetes mellitus, type 2) Qualifiers: Diabetes mellitus [facility] insulin use: with [facility] use Diabetes mellitus complication status: with circulatory complication Diabetes mellitus complication detail: with other circulatory complications Qualified Code(s): E11.59 - Type 2 diabetes mellitus with other circulatory complications; Z79.4 - [facility] (current) use of insulin (7) HTN (hypertension) Qualifiers: Hypertension type: essential hypertension Qualified Code(s): I10 - Essential (primary) hypertension (8) Chronic kidney disease Qualifiers: Chronic kidney disease stage: unspecified stage Qualified Code(s): N18.9 - Chronic kidney disease, unspecified
[2018-05-24] MEDS ORDERED: Regadenoson Inj 0.4 MG/5 ML Syringe IV.PUSH ONE (12:44)
--- NOTE | 2018-05-24 14:19 | NM ---
EXAM DATE: 05/24/2018 2:06 PM EST AGE/SEX: 63 years / Male INDICATIONS:Congestive heart failure. . Back pain. CLINICAL DATA: This is the patient's initial encounter. Patient reports that signs and symptoms have been present for 1 day and indicates a pain score of 2/10. MEDICAL/SURGICAL HISTORY: Chronic obstructive pulmonary disease. Diabetes mellitus type II. H ypertension. None. COMPARISON: POI, CTA AORTA W/ RUNOFF, 07/20/2013. . DOSE: 10.1 mCi Tc 99m Myoview at rest 30.8 mCi [id number] at stress 0.4 mg Lexiscan STRESS SYMPTOMS: Dyspnea. EJECTION FRACTION: 32 % TECHNIQUE: The patient underwent pharmacologic stress with infusion of prescribed dose. Continuous ECG tracing was monitored during stress. Gated SPECT imaging was performed after stress and conventi onal SPECT imaging was performed at rest. The examination was performed on a SPECT/CT scanner, both attenuation and non-corrected datasets were reviewed. FINDINGS: The gated cine loop images demonstrate global hypokinesis. The left ventricular ejection fraction is calculated at 32%. The cardiac stress and rest images demonstrate extensive fixed defects involving the LAD and RCA dist ributions consistent with infarcts in these locations. No reversible defect is noted to suggest ische svitlana. RISK CATEGORY: High (>3% Annual Morality Rate) CONCLUSION: 1. Fixed defects involving the LAD and RCA distributions consistent with infarcts. 2. Extensive global hypokinesis with left ventricular ejection fraction equaling 32%. 3. No reversible defect to suggest ischemia. Electronically signed by: Eligio Bosch MD Board Certified Radiologist 05/24/2018 2:18 PM EST
--- NOTE | 2018-05-24 16:11 | P.CONNP ---
<Mona Chavez - Last Filed: 05/24/18 16:11> History of Present Illness Service: Nephrology Consult date: 05/24/18 Requesting Physician: Peterson Montiel Reason for Consult: Acute kidney injury, worseing creatinine with diuresis. Primary Care Provider: Rainer Farooq Chief Complaint: Dyspnea History of Present Illness: Patient is a 63 year old male with past medical history of congestive heart failure with EF of less than 20 %, hypertension, hyperlipidemia, coronary artery disease, COPD, and diabetes. Presented to the ED on the with SOB for the past two days. Nephrology is consulted for worsening creatinine and generalized edema. Creatinine at 2.42 up from admission creatinine of 1.88. Baseline creatinine around 1.5- 1.9. On lasix BID with indwelling rolon catheter. Patient with bilateral lower extremity tight edema which extends to abdomen. Significant scrotal edema. Denies any shortness of breath, chest pain , nausea, or vomiting. Review of Systems All other systems reviewed negative except as stated in HPI PMFSH - History History Provided By: Patient - Medical History Medical History: Medical History (Last Updated 05/24/18 @ 06:46 by Estela Hernandez MD) COPD (chronic obstructive pulmonary disease) Renal failure Congestive heart failure Diabetes High cholesterol Hypertension PAD (peripheral artery disease) - Surgical History Surgical History: Surgical History (Last Reviewed 05/24/18 @ 05:49 by Estela Hernandez MD) H/O vascular surgery - Family History Family History: Family History (Last Reviewed 05/24/18 @ 05:49 by Estela Hernandez MD) Other Diabetes - Tobacco History Second Hand Smoke Exposure: No Tobacco Use In Past 30 Days: No Smoking Status: Former smoker Tobacco Type: Cigarettes - Alcohol History How Often Do You Have a Drink Containing Alcohol: Never - Substance Use History Substance History: No History of Abuse - Travel History Recent Travel in the [place] Within the Last 8 Weeks: No Recent Travel Out of the Country Within the Last 8 Weeks: No - Immunization History Tetanus Immunization: Unsure Medications and Allergies Allergies Allergy/AdvReac Type Severity Reaction Status Date / Time No Known Allergies Allergy Verified 03/27/18 10:29 Home Medications Medication Instructions Recorded Confirmed Type hydrocodone-acetaminophen [Fulda] 1 tab PO Q6H 01/15/18 05/22/18 History insulin regular human [Humulin R 1 sliding scale dose SUB-Q UD 01/15/18 History Regular U-100 Insuln] lidocaine [Lidocaine Pain Relief] 1 patch TOPICAL Q8H 01/15/18 05/22/18 History ranitidine HCl [Zantac] 150 mg PO BID 01/15/18 05/22/18 History sitagliptin-metformin [Janumet] 1 tab PO DAILY 01/15/18 05/22/18 History tamsulosin [Flomax] 0.4 mg PO HS 01/15/18 05/22/18 History Active Medications: Active Medications Acetaminophen (Tylenol) 650 mg PO Q4H PRN PRN Reason: Temp > 100.4, Pain scale 1-2 Last Admin: 05/24/18 15:08 Dose: 325 mg Hydrocodone Bitart/Acetaminophen (Fulda 10/325) 1 tab PO Q6H PRN PRN Reason: Pain scale 3-10 Last Admin: 05/24/18 15:10 Dose: 1 tab Al Hydroxide/Mg Hydroxide (Milk Of Cheryl Liq) 30 ml PO Q12H PRN PRN Reason: Mild Constipation Albuterol (Duoneb Neb (Genet)) 1 ampul NEB Q4HR NEB [facility] Last Admin: 05/24/18 15:16 Dose: 1 ampul Aspirin (Ecotrin) 81 mg PO DAILY [facility] Last Admin: 05/24/18 10:43 Dose: 81 mg Atorvastatin Calcium (Lipitor) 80 mg PO HS [facility] Last Admin: 05/23/18 21:02 Dose: 80 mg Benzonatate (Tessalon Perles) 100 mg PO Q8H PRN PRN Reason: COUGH Last Admin: 05/24/18 15:08 Dose: 100 mg Bisacodyl (Dulcolax Supp) 10 mg RECTAL DAILY PRN PRN Reason: SEVERE CONSITIPATION Budesonide/Formoterol Fumarate (Symbicort 160/4.5 Mcg Inh) 2 puff INH BID [facility] Carvedilol (Coreg) 12.5 mg PO BID [facility] Last Admin: 05/24/18 10:45 Dose: 12.5 mg Clopidogrel Bisulfate (Plavix) 75 mg PO DAILY [facility] Last Admin: 05/24/18 10:44 Dose: 75 mg Dextrose (D50w Vial) 50 ml IV.PUSH UNSCH PRN PRN Reason: PER HYPOGLYCEMIA PROTOCOL Enoxaparin Sodium (Lovenox Inj) 30 mg SQ DAILY [facility] Last Admin: 05/24/18 10:49 Dose: 30 mg Famotidine (Pepcid) 10 mg PO BID [facility] Last Admin: 05/24/18 10:45 Dose: 10 mg Furosemide (Lasix Inj) 40 mg IV.PUSH BID@0900,1800 [facility] Last Admin: 05/24/18 10:49 Dose: 40 mg Glucagon (Glucagon Inj) 1 mg OTHER PRN PRN PRN Reason: for Hypoglycemia Protocol Insulin Aspart (Novolog Insulin Correctional Sugar Inj) 0 unit SQ ACHS AND 3AM GENET; Protocol Last Admin: 05/24/18 15:10 Dose: 5 unit Insulin Detemir (Levemir Inj) 30 unit SQ BID [facility] Lactulose (Lactulose Liq) 30 ml PO DAILY PRN PRN Reason: SEVERE CONSITIPATION Lisinopril (Prinivil) 2.5 mg PO DAILY [facility] Last Admin: 05/24/18 10:44 Dose: 2.5 mg Ondansetron HCl (Zofran Inj) 4 mg IV.PUSH Q6H PRN PRN Reason: NAUSEA OR VOMITING Pregabalin (Lyrica) 75 mg PO BID [facility] Last Admin: 05/24/18 10:47 Dose: Not Given Senna/Docusate Sodium (Abiola-Colace) 1 tab PO BID [facility] Last Admin: 05/24/18 10:46 Dose: 1 tab Sennosides (Senokot) 17.2 mg PO Q12H PRN PRN Reason: Moderate Constipation Sodium Chloride (Ns Flush) 2 ml IV.FLUSH PRN PRN PRN Reason: FLUSH AFTER USING IV ACCESS Sodium Chloride (Ns Flush) 2 ml IV.FLUSH BID [facility] Last Admin: 05/24/18 10:50 Dose: 2 ml Tamsulosin HCl (Flomax) 0.4 mg PO HS [facility] Last Admin: 05/23/18 21:00 Dose: 0.4 mg Exam Vital signs: Vital Signs 05/23/18 16:07 05/23/18 17:00 05/23/18 18:00 Temperature Pulse Rate 81 76 84 Respiratory Rate 16 Blood Pressure Pulse Oximetry 05/23/18 19:00 05/23/18 20:00 05/23/18 20:21 Temperature 98.6 F Pulse Rate 92 H 80 83 Respiratory Rate 18 18 Blood Pressure 150/79 H Pulse Oximetry 97 95 05/23/18 21:00 05/23/18 22:00 05/23/18 23:00 Temperature Pulse Rate 90 86 85 Respiratory Rate Blood Pressure Pulse Oximetry 05/23/18 23:39 05/24/18 00:00 05/24/18 01:00 Temperature 98.5 F Pulse Rate 78 80 80 Respiratory Rate 18 16 Blood Pressure 110/49 L Pulse Oximetry 97 05/24/18 02:00 05/24/18 03:00 05/24/18 03:50 Temperature Pulse Rate 63 77 74 Respiratory Rate 18 Blood Pressure Pulse Oximetry 05/24/18 04:00 05/24/18 05:00 05/24/18 06:00 Temperature 98.4 F Pulse Rate 78 74 75 Respiratory Rate 18 Blood Pressure 131/62 Pulse Oximetry 99 05/24/18 09:07 05/24/18 09:09 05/24/18 14:30 Temperature 97.6 F Pulse Rate 76 79 Respiratory Rate 24 18 Blood Pressure 130/77 Pulse Oximetry 96 98 05/24/18 15:18 05/24/18 15:19 Temperature Pulse Rate 84 Respiratory Rate 22 Blood Pressure Pulse Oximetry 98 Intake & Output 05/23/18 05/24/18 05/24/18 18:59 06:59 18:59 Intake Total 480 / 480 Output Total 300 / 300 Balance 180 / 180 Weight 105.8 kg Intake: Oral 480 / 480 Output: Urine 300 / 300 Other: Date of Last Bowel Movement 05/22/18 Narrative: GENERAL: Alert and oriented. SKIN: Warm and dry. NECK: Supple, trachea midline. No JVD. CARDIOVASCULAR: Regular rate and rhythm without murmurs, gallops, or rubs. RESPIRATORY: Breath sounds equal bilaterally. No accessory muscle use. GASTROINTESTINAL: Abdomen soft, non-tender, nondistended. +BS GENITOURINARY: Indwelling Rolon catheter. Scrotal edema. MUSCULOSKELETAL: No cyanosis, tight bilateral lower extremity edema. BACK: Nontender without obvious deformity. No CVA tenderness. Results - Lab Results 05/24/18 05:47 05/24/18 05:47 Most recent lab results ABG pH 7.33 (7.380-7.420) L 05/22/18 18:36 ABG pCO2 54 mmHg (38-42) H* 05/22/18 18:36 ABG pO2 48 mmHG (61-120) L* 05/22/18 18:36 ABG HCO3 28 mmol/L (22-26) H 05/22/18 18:36 Calcium 8.4 mg/dL (8.5-10.1) L 05/24/18 05:47 - Image Kidney/bladder ultrasound: pending Assessment and Plan - Assessment (1) Acute kidney injury superimposed on chronic kidney disease Code(s): N17.9 - Acute kidney failure, unspecified; N18.9 - Chronic kidney disease, unspecified Status: Acute Plan: Acute kidney injury with creatinine of 2.42 ALISHA possibly prerenal from decreased cardiac output and third spacing Has chronic kidney disease possibly diabetic nephropathy. Renal ultrasound ordered Urine sodium and osmolarity Avoid nephrotoxins. Recommend to continue lasix for now despite increase in creatinine may benefit from gtt will assess tomorrow, remains fluid overloaded Maintain strict I+O has indwelling rolon catheter Will follow labs and BMP Labs in AM (2) Hyperlipidemia Code(s): E78.5 - Hyperlipidemia, unspecified Status: Acute Plan: On atorvastatin (3) Edema Code(s): R60.9 - Edema, unspecified Status: Acute Plan: Continue lasix maintain strict I+O Daily weights Low sodium diet. (4) DM2 (diabetes mellitus, type 2) Code(s): E11.9 - Type 2 diabetes mellitus without complications Status: Acute Plan: Maintain blood sugars between 140 mg/dl to 180 mg/dl while hospitalized. (5) CHF (congestive heart failure), NYHA class IV Code(s): I50.9 - Heart failure, unspecified Status: Acute Plan: On lasix, patient reports that edema is improving. (6) Elevated troponin Code(s): R74.8 - Abnormal levels of other serum enzymes Status: Acute Plan: Cardiology following, may need CABG <Karlos Armenta - Last Filed: 05/24/18 18:51> History of Present Illness Primary Care Provider: Rainer Farooq [facility] - Medical History Medical History: Medical History (Last Updated 05/24/18 @ 06:46 by Estela Hernandez MD) COPD (chronic obstructive pulmonary disease) Renal failure Congestive heart failure Diabetes High cholesterol Hypertension PAD (peripheral artery disease) - Surgical History Surgical History: Surgical History (Last Reviewed 05/24/18 @ 05:49 by Estela Hernandez MD) H/O vascular surgery - Family History Family History: Family History (Last Reviewed 05/24/18 @ 05:49 by Estela Hernandez MD) Other Diabetes Medications and Allergies Active Medications: Active Medications Acetaminophen (Tylenol) 650 mg PO Q4H PRN PRN Reason: Temp > 100.4, Pain scale 1-2 Last Admin: 05/24/18 15:08 Dose: 325 mg Hydrocodone Bitart/Acetaminophen (Fulda 10/325) 1 tab PO Q6H PRN PRN Reason: Pain scale 3-10 Last Admin: 05/24/18 15:10 Dose: 1 tab Al Hydroxide/Mg Hydroxide (Milk Of Cheryl Liq) 30 ml PO Q12H PRN PRN Reason: Mild Constipation Albuterol (Duoneb Neb (Genet)) 1 ampul NEB Q4HR NEB [facility] Last Admin: 05/24/18 15:16 Dose: 1 ampul Aspirin (Ecotrin) 81 mg PO DAILY [facility] Last Admin: 05/24/18 10:43 Dose: 81 mg Atorvastatin Calcium (Lipitor) 80 mg PO HS [facility] Last Admin: 05/23/18 21:02 Dose: 80 mg Benzonatate (Tessalon Perles) 100 mg PO Q8H PRN PRN Reason: COUGH Last Admin: 05/24/18 15:08 Dose: 100 mg Bisacodyl (Dulcolax Supp) 10 mg RECTAL DAILY PRN PRN Reason: SEVERE CONSITIPATION Budesonide/Formoterol Fumarate (Symbicort 160/4.5 Mcg Inh) 2 puff INH BID [facility] Last Admin: 05/24/18 18:22 Dose: 2 puff Carvedilol (Coreg) 12.5 mg PO BID [facility] Last Admin: 05/24/18 10:45 Dose: 12.5 mg Clopidogrel Bisulfate (Plavix) 75 mg PO DAILY [facility] Last Admin: 05/24/18 10:44 Dose: 75 mg Dextrose (D50w Vial) 50 ml IV.PUSH UNSCH PRN PRN Reason: PER HYPOGLYCEMIA PROTOCOL Enoxaparin Sodium (Lovenox Inj) 30 mg SQ DAILY [facility] Last Admin: 05/24/18 10:49 Dose: 30 mg Famotidine (Pepcid) 10 mg PO BID [facility] Last Admin: 05/24/18 10:45 Dose: 10 mg Furosemide (Lasix Inj) 40 mg IV.PUSH BID@0900,1800 [facility] Last Admin: 05/24/18 18:22 Dose: 40 mg Glucagon (Glucagon Inj) 1 mg OTHER PRN PRN PRN Reason: for Hypoglycemia Protocol Insulin Aspart (Novolog Insulin Correctional Sugar Inj) 0 unit SQ ACHS AND 3AM GENET; Protocol Last Admin: 05/24/18 18:23 Dose: 10 unit Insulin Detemir (Levemir Inj) 30 unit SQ BID [facility] Lactulose (Lactulose Liq) 30 ml PO DAILY PRN PRN Reason: SEVERE CONSITIPATION Lisinopril (Prinivil) 2.5 mg PO DAILY [facility] Last Admin: 05/24/18 10:44 Dose: 2.5 mg Ondansetron HCl (Zofran Inj) 4 mg IV.PUSH Q6H PRN PRN Reason: NAUSEA OR VOMITING Pregabalin (Lyrica) 75 mg PO BID [facility] Last Admin: 05/24/18 10:47 Dose: Not Given Senna/Docusate Sodium (Abiola-Colace) 1 tab PO BID [facility] Last Admin: 05/24/18 10:46 Dose: 1 tab Sennosides (Senokot) 17.2 mg PO Q12H PRN PRN Reason: Moderate Constipation Sodium Chloride (Ns Flush) 2 ml IV.FLUSH PRN PRN PRN Reason: FLUSH AFTER USING IV ACCESS Sodium Chloride (Ns Flush) 2 ml IV.FLUSH BID [facility] Last Admin: 05/24/18 10:50 Dose: 2 ml Tamsulosin HCl (Flomax) 0.4 mg PO HS [facility] Last Admin: 05/23/18 21:00 Dose: 0.4 mg Exam Vital signs: Vital Signs 05/23/18 19:00 05/23/18 20:00 05/23/18 20:21 Temperature 98.6 F Pulse Rate 92 H 80 83 Respiratory Rate 18 18 Blood Pressure 150/79 H Pulse Oximetry 97 95 05/23/18 21:00 05/23/18 22:00 05/23/18 23:00 Temperature Pulse Rate 90 86 85 Respiratory Rate Blood Pressure Pulse Oximetry 05/23/18 23:39 05/24/18 00:00 05/24/18 01:00 Temperature 98.5 F Pulse Rate 78 80 80 Respiratory Rate 18 16 Blood Pressure 110/49 L Pulse Oximetry 97 05/24/18 02:00 05/24/18 03:00 05/24/18 03:50 Temperature Pulse Rate 63 77 74 Respiratory Rate 18 Blood Pressure Pulse Oximetry 05/24/18 04:00 05/24/18 05:00 05/24/18 06:00 Temperature 98.4 F Pulse Rate 78 74 75 Respiratory Rate 18 Blood Pressure 131/62 Pulse Oximetry 99 05/24/18 09:07 05/24/18 09:09 05/24/18 14:30 Temperature 97.6 F Pulse Rate 76 79 Respiratory Rate 24 18 Blood Pressure 130/77 Pulse Oximetry 96 98 05/24/18 15:18 05/24/18 15:19 Temperature Pulse Rate 84 Respiratory Rate 22 Blood Pressure Pulse Oximetry 98 Intake & Output 05/23/18 05/24/18 05/24/18 18:59 06:59 18:59 Intake Total 480 / 480 Output Total 300 / 300 Balance 180 / 180 Weight 105.8 kg Intake: Oral 480 / 480 Output: Urine 300 / 300 Other: Date of Last Bowel Movement 05/22/18 Results - Lab Results 05/24/18 05:47 05/24/18 05:47 Most recent lab results ABG pH 7.33 (7.380-7.420) L 05/22/18 18:36 ABG pCO2 54 mmHg (38-42) H* 05/22/18 18:36 ABG pO2 48 mmHG (61-120) L* 05/22/18 18:36 ABG HCO3 28 mmol/L (22-26) H 05/22/18 18:36 Calcium 8.4 mg/dL (8.5-10.1) L 05/24/18 05:47 Assessment and Plan - Assessment (1) Acute kidney injury superimposed on chronic kidney disease Code(s): N17.9 - Acute kidney failure, unspecified; N18.9 - Chronic kidney disease, unspecified Status: Acute Plan: Patient seen and examined, agree with above. Patient with chronic kidney disease and develop ALISHA. Has Congestive heart disease and low EF. Continue Lasix, patient has anasarca. If Creatinine continue to get worse, may need HD and Ultra filtration. (2) Hyperlipidemia Code(s): E78.5 - Hyperlipidemia, unspecified Status: Acute (3) Edema Code(s): R60.9 - Edema, unspecified Status: Acute (4) DM2 (diabetes mellitus, type 2) Code(s): E11.9 - Type 2 diabetes mellitus without complications Status: Acute (5) CHF (congestive heart failure), NYHA class IV Code(s): I50.9 - Heart failure, unspecified Status: Acute (6) Elevated troponin Code(s): R74.8 - Abnormal levels of other serum enzymes Status: Acute <Mona Chavez - Last Filed: 05/24/18 16:11> (2) Hyperlipidemia Qualifiers: Hyperlipidemia type: unspecified Qualified Code(s): E78.5 - Hyperlipidemia, unspecified (4) DM2 (diabetes mellitus, type 2) Qualifiers: Diabetes mellitus extermination inspector insulin use: with [facility] use Diabetes mellitus complication status: with circulatory complication Diabetes mellitus complication detail: with other circulatory complications Qualified Code(s): E11.59 - Type 2 diabetes mellitus with other circulatory complications; Z79.4 - penitentiary (current) use of insulin (5) CHF (congestive heart failure), NYHA class IV Qualifiers: Congestive heart failure type: combined Congestive heart failure chronicity: acute on chronic Qualified Code(s): I50.43 - Acute on chronic combined systolic (congestive) and diastolic (congestive) heart failure <Karlos Armenta - Last Filed: 05/24/18 18:51> (2) Hyperlipidemia Qualifiers: Hyperlipidemia type: unspecified Qualified Code(s): E78.5 - Hyperlipidemia, unspecified (4) DM2 (diabetes mellitus, type 2) Qualifiers: Diabetes mellitus extermination inspector insulin use: with extermination inspector use Diabetes mellitus complication status: with circulatory complication Diabetes mellitus complication detail: with other circulatory complications Qualified Code(s): E11.59 - Type 2 diabetes mellitus with other circulatory complications; Z79.4 - superintendent terminal (current) use of insulin (5) CHF (congestive heart failure), NYHA class IV Qualifiers: Congestive heart failure type: combined Congestive heart failure chronicity: acute on chronic Qualified Code(s): I50.43 - Acute on chronic combined systolic (congestive) and diastolic (congestive) heart failure
[2018-05-24] MEDS: Budesonide-Formoterol 160/4.5 MCG 6 GM Inhaler INH SCH (18:22)
[2018-05-24] MEDS ORDERED: Insulin Detemir Inj 1,000 UNIT/10 ML Vial SQ SCH (21:00)
[2018-05-25] MEDS: Insulin NovoLOG Aspart Correctional Sugar Inj SQ SCH ×5 (04:24→20:14)
[2018-05-25 06:36] LABS: Baso % (Auto) 0.5 % (0.0-2.0); Eos # (Auto) 0.4 th/mm3 (0.0-0.4); Eos % (Auto) 4.8 % (0.0-4.0); Hematocrit 25.8 % (39.0-51.0); Hemoglobin 8.5 gm/dL (13.0-17.0); Lymph # (Auto) 1.6 th/mm3 (1.0-4.8); Lymph % (Auto) 21.8 % (9.0-44.0); Mean Corpuscular Hemoglobin 29.5 pg (27.0-34.0); Mean Corpuscular Volume 89.5 fL (80.0-100.0); Mono # (Auto) 0.8 th/mm3 (0.0-0.9); Mono % (Auto) 11.2 % (0.0-8.0); Neut # (Auto) 4.6 th/mm3 (1.8-7.7); Neut % (Auto) 61.7 % (16.0-70.0); Platelet Count 241 th/mm3 (150-450); Red Blood Count 2.88 mil/mm3 (4.50-5.90); White Blood Count 7.4 th/mm3 (4.0-11.0)
[2018-05-25 06:57] LABS: Calcium 8.5 mg/dL (8.5-10.1); Carbon Dioxide 32.2 meq/L (21.0-32.0); Potassium 4.4 meq/L (3.5-5.1)
[2018-05-25] MEDS: Budesonide-Formoterol 160/4.5 MCG 6 GM Inhaler INH SCH ×2 (08:04→20:08)
[2018-05-25] MEDS: Pregabalin 75 MG Capsule PO SCH ×2 (08:05→20:09)
[2018-05-25] MEDS: Famotidine 20 MG Tablet PO SCH ×2 (08:05→20:10)
[2018-05-25] MEDS: Lisinopril 5 MG Tablet PO SCH (08:05)
[2018-05-25] MEDS: Senna/Docusate Sodium 8.6/50 MG Tablet PO SCH ×2 (08:05→20:12)
[2018-05-25] MEDS: Enoxaparin Inj 30 MG/0.3 ML Syringe SQ SCH (08:06)
[2018-05-25] MEDS: Carvedilol 12.5 MG Tablet PO SCH ×2 (08:06→20:12)
[2018-05-25] MEDS: Insulin Detemir Inj 1,000 UNIT/10 ML Vial SQ SCH ×2 (08:12→20:13)
--- NOTE | 2018-05-25 10:38 | P.PNFP ---
Subjective Interval history: Doing well, wants to know when swelling from his scrotum will be going down. Negative balance, -0.860. <Won BootheMarlee N - 05/25/18 11:12> Results - Labs Result diagrams: 05/25/18 05:43 05/25/18 05:43 <Jose Monroe - 05/25/18 14:50> Abnormal lab results 05/24/18 05/24/18 05/25/18 Range/Units 18:02 20:57 03:22 RBC (4.50-5.90) mil/mm3 Hgb (13.0-17.0) gm/dL Hct (39.0-51.0) % [place] % (Auto) (0.0-8.0) % Eos % (Auto) (0.0-4.0) % Carbon Dioxide (21.0-32.0) meq/L Anion Gap (5-15) meq/L BUN (7-18) mg/dL Creatinine (0.60-1.30) mg/dL Estimated GFR (>89) mL/min POC Glucose 213 H 260 H 118 H (68-110) mg/dl Random Glucose (74-106) mg/dL 05/25/18 05/25/18 05/25/18 Range/Units 05:43 05:43 08:00 RBC 2.88 L (4.50-5.90) mil/mm3 Hgb 8.5 L (13.0-17.0) gm/dL Hct 25.8 L (39.0-51.0) % [place] % (Auto) 11.2 H (0.0-8.0) % Eos % (Auto) 4.8 H (0.0-4.0) % Carbon Dioxide 32.2 H (21.0-32.0) meq/L Anion Gap 4 L (5-15) meq/L BUN 42 H (7-18) mg/dL Creatinine 2.12 H (0.60-1.30) mg/dL Estimated GFR 32 L (>89) mL/min POC Glucose 210 H (68-110) mg/dl Random Glucose 174 H (74-106) mg/dL 05/25/18 Range/Units 11:31 RBC (4.50-5.90) mil/mm3 Hgb (13.0-17.0) gm/dL Hct (39.0-51.0) % [place] % (Auto) (0.0-8.0) % Eos % (Auto) (0.0-4.0) % Carbon Dioxide (21.0-32.0) meq/L Anion Gap (5-15) meq/L BUN (7-18) mg/dL Creatinine (0.60-1.30) mg/dL Estimated GFR (>89) mL/min POC Glucose 197 H (68-110) mg/dl Random Glucose (74-106) mg/dL Short CBC 05/25/18 Range/Units 05:43 WBC 7.4 (4.0-11.0) th/mm3 Hgb 8.5 L (13.0-17.0) gm/dL Hct 25.8 L (39.0-51.0) % Plt Count 241 (150-450) th/mm3 BMP 05/25/18 05:43 Sodium 141 Potassium 4.4 Chloride 105 Carbon Dioxide 32.2 H BUN 42 H Creatinine 2.12 H Calcium 8.5 <Jose Monroe - 05/25/18 14:50> Abnormal lab results 05/24/18 05/24/18 05/24/18 Range/Units 14:32 18:02 20:57 RBC (4.50-5.90) mil/mm3 Hgb (13.0-17.0) gm/dL Hct (39.0-51.0) % [place] % (Auto) (0.0-8.0) % Eos % (Auto) (0.0-4.0) % Carbon Dioxide (21.0-32.0) meq/L Anion Gap (5-15) meq/L BUN (7-18) mg/dL Creatinine (0.60-1.30) mg/dL Estimated GFR (>89) mL/min POC Glucose 172 H 213 H 260 H (68-110) mg/dl Random Glucose (74-106) mg/dL 05/25/18 05/25/18 05/25/18 Range/Units 03:22 05:43 05:43 RBC 2.88 L (4.50-5.90) mil/mm3 Hgb 8.5 L (13.0-17.0) gm/dL Hct 25.8 L (39.0-51.0) % [place] % (Auto) 11.2 H (0.0-8.0) % Eos % (Auto) 4.8 H (0.0-4.0) % Carbon Dioxide 32.2 H (21.0-32.0) meq/L Anion Gap 4 L (5-15) meq/L BUN 42 H (7-18) mg/dL Creatinine 2.12 H (0.60-1.30) mg/dL Estimated GFR 32 L (>89) mL/min POC Glucose 118 H (68-110) mg/dl Random Glucose 174 H (74-106) mg/dL 05/25/18 Range/Units 08:00 RBC (4.50-5.90) mil/mm3 Hgb (13.0-17.0) gm/dL Hct (39.0-51.0) % [place] % (Auto) (0.0-8.0) % Eos % (Auto) (0.0-4.0) % Carbon Dioxide (21.0-32.0) meq/L Anion Gap (5-15) meq/L BUN (7-18) mg/dL Creatinine (0.60-1.30) mg/dL Estimated GFR (>89) mL/min POC Glucose 210 H (68-110) mg/dl Random Glucose (74-106) mg/dL Short CBC 05/25/18 Range/Units 05:43 WBC 7.4 (4.0-11.0) th/mm3 Hgb 8.5 L (13.0-17.0) gm/dL Hct 25.8 L (39.0-51.0) % Plt Count 241 (150-450) th/mm3 [facility] 05/25/18 05:43 Sodium 141 Potassium 4.4 Chloride 105 Carbon Dioxide 32.2 H BUN 42 H Creatinine 2.12 H Calcium 8.5 <Marlee Rhodes - 05/25/18 10:38> - Imaging Impressions Myocardial Perfusion Scan Nuc Med 05/24/18 08:34 CONCLUSION: 1. Fixed defects involving the LAD and RCA distributions consistent with infarcts. 2. Extensive global hypokinesis with left ventricular ejection fraction equaling 32%. 3. No reversible defect to suggest ischemia. <Marlee Rhodes - 05/25/18 10:38> Physical Exam Vital signs: Vital Signs 05/24/18 15:00 18 15:18 18 15:19 Temperature Pulse Rate 84 84 Respiratory Rate 22 Blood Pressure Pulse Oximetry 98 05/24/18 16:00 05/24/18 17:00 05/24/18 18:00 Temperature 97.9 F Pulse Rate 80 82 78 Respiratory Rate 16 18 Blood Pressure 133/75 Pulse Oximetry 98 05/24/18 19:18 05/24/18 20:00 05/24/18 21:00 Temperature 98.7 F Pulse Rate 84 82 82 Respiratory Rate 22 18 Blood Pressure 137/80 Pulse Oximetry 98 05/24/18 21:07 05/24/18 22:00 05/24/18 22:54 Temperature Pulse Rate 82 92 H Respiratory Rate 18 18 Blood Pressure Pulse Oximetry 05/24/18 23:00 05/25/18 00:00 05/25/18 01:00 Temperature 98.7 F Pulse Rate 82 85 85 Respiratory Rate 18 Blood Pressure 139/82 Pulse Oximetry 98 05/25/18 02:00 05/25/18 03:00 05/25/18 03:09 Temperature Pulse Rate 75 75 83 Respiratory Rate 17 Blood Pressure Pulse Oximetry 05/25/18 04:00 05/25/18 05:00 05/25/18 05:32 Temperature 98.6 F Pulse Rate 75 81 75 Respiratory Rate 18 Blood Pressure 149/77 H Pulse Oximetry 98 05/25/18 07:00 05/25/18 07:47 05/25/18 08:00 Temperature 98.0 F Pulse Rate 79 75 78 Respiratory Rate 16 20 Blood Pressure 144/70 H Pulse Oximetry 99 99 99 05/25/18 09:00 05/25/18 10:00 05/25/18 11:00 Temperature 98.2 F Pulse Rate 76 74 78 Respiratory Rate 20 Blood Pressure 123/71 Pulse Oximetry 96 05/25/18 12:21 Temperature Pulse Rate 76 Respiratory Rate 16 Blood Pressure Pulse Oximetry Intake & Output 05/24/18 05/25/18 05/25/18 18:59 06:59 18:59 Intake Total 240 / 240 Output Total 1100 / 1100 Balance -860 / -860 Weight 107 kg Intake: Oral 240 / 240 Output: Urine 1100 / 1100 Other: Date of Last Bowel Movement 05/22/18 05/22/18 <Jose Monroe 05/25/18 14:50> Vital Signs 05/24/18 13:00 05/24/18 14:30 05/24/18 15:00 Temperature 97.6 F Pulse Rate 78 79 84 Respiratory Rate 18 Blood Pressure 130/77 Pulse Oximetry 98 05/24/18 15:18 05/24/18 15:19 05/24/18 16:00 Temperature Pulse Rate 84 80 Respiratory Rate 22 16 Blood Pressure Pulse Oximetry 98 05/24/18 17:00 05/24/18 18:00 05/24/18 19:18 Temperature 97.9 F Pulse Rate 82 78 84 Respiratory Rate 18 22 Blood Pressure 133/75 Pulse Oximetry 98 05/24/18 20:00 05/24/18 21:00 05/24/18 21:07 Temperature 98.7 F Pulse Rate 82 82 Respiratory Rate 18 18 Blood Pressure 137/80 Pulse Oximetry 98 05/24/18 22:00 05/24/18 22:54 05/24/18 23:00 Temperature Pulse Rate 82 92 H 82 Respiratory Rate 18 Blood Pressure Pulse Oximetry 05/25/18 00:00 05/25/18 01:00 05/25/18 02:00 Temperature 98.7 F Pulse Rate 85 85 75 Respiratory Rate 18 Blood Pressure 139/82 Pulse Oximetry 98 05/25/18 03:00 05/25/18 03:09 05/25/18 04:00 Temperature 98.6 F Pulse Rate 75 83 75 Respiratory Rate 17 18 Blood Pressure 149/77 H Pulse Oximetry 98 05/25/18 05:00 05/25/18 05:32 05/25/18 07:00 Temperature 98.0 F Pulse Rate 81 75 79 Respiratory Rate 16 Blood Pressure 144/70 H Pulse Oximetry 99 05/25/18 07:47 05/25/18 08:00 Temperature Pulse Rate 75 Respiratory Rate 20 Blood Pressure Pulse Oximetry 99 99 Intake & Output 05/24/18 05/25/18 05/25/18 18:59 06:59 18:59 Intake Total 240 / 240 Output Total 1100 / 1100 Balance -860 / -860 Weight 107 kg Intake: Oral 240 / 240 Output: Urine 1100 / 1100 Other: Date of Last Bowel Movement 05/22/18 05/22/18 <Marlee Rhodes N - 05/25/18 10:38> Narrative: GENERAL: Alert and oriented. SKIN: Warm and dry. NECK: Supple, trachea midline. CARDIOVASCULAR: Regular rate and rhythm without murmurs, gallops, or rubs. RESPIRATORY: Breath sounds equal bilaterally. No accessory muscle use. GASTROINTESTINAL: Abdomen distended, non-tender to palpation. GENITOURINARY: Indwelling Chung catheter. Scrotal edema. MUSCULOSKELETAL: No cyanosis, bilateral lower extremity edema. BACK: Nontender without obvious deformity. No CVA tenderness. <Abid Marlee Boothe 05/25/18 11:12> - Urinary Catheter Management Indwelling Urethral Catheter Cath placed during this visit: no <Jose Monroe 05/25/18 14:50> yes <Abid Marlee Boothe 05/25/18 11:12> Reason for continuing: Hourly intake/output <Abid Marlee Boothe 05/25/18 10:38 > Insertion date: 05/22/18 <Abid R2Marlee [facility] 05/25/18 10:38> Insertion time: 12:37 <Abid Marlee Boothe 05/25/18 10:38> Assessment and Plan - Assessment (1) COPD (chronic obstructive pulmonary disease) Code(s): J44.9 - Chronic obstructive pulmonary disease, unspecified Status: Acute (2) Ischemic cardiomyopathy Code(s): I25.5 - Ischemic cardiomyopathy Status: Acute (3) CAD (coronary artery disease) Code(s): I25.10 - Atherosclerotic heart disease of [place] coronary artery without angina pectoris Status: Acute (4) DM2 (diabetes mellitus, type 2) Code(s): E11.9 - Type 2 diabetes mellitus without complications Status: Acute (5) HTN (hypertension) Code(s): I10 - Essential (primary) hypertension Status: Acute (6) Chronic kidney disease Code(s): N18.9 - Chronic kidney disease, unspecified Status: Acute (7) Nutrition, metabolism, and development symptoms Code(s): R63.8 - Other symptoms and signs concerning food and fluid intake Status: Acute <Jose Monroe 05/25/18 14:50> (1) COPD (chronic obstructive pulmonary disease) Code(s): J44.9 - Chronic obstructive pulmonary disease, unspecified Status: Acute Plan: Con't Atrovent BID Spiriva daily Albuterol PRN O2 as needed Incentive spirometry BIPAP at night (2) Ischemic cardiomyopathy Code(s): I25.5 - Ischemic cardiomyopathy Status: Acute Plan: -EF less than 20% -Continue beta-ed and JEREMY inhibitor -Cardiology on board; nuclear viability study showed no fixed defects involving the LAD and RCA distributions consistent with infarcts, no reversible defect suggesting ischemia. Appreciate cardiology and CT recs. May touch base today; planning for transition to PO and DC tomorrow (3) CAD (coronary artery disease) Code(s): I25.10 - Atherosclerotic heart disease of [place] coronary artery without angina pectoris Status: Acute Plan: -Patient with history of previous KS -Continue aspirin and Plavix -Continue atorvastatin 80 mg p.o. HS (4) DM2 (diabetes mellitus, type 2) Code(s): E11.9 - Type 2 diabetes mellitus without complications Status: Acute Plan: Not well controlled. Check A1c, patient's last A1c was 14.2 in January 2017 Use of 35 units total of SSI over the last 12 hrs - Levemir insulin increased to 30 units BID - High dose SSI (5) HTN (hypertension) Code(s): I10 - Essential (primary) hypertension Status: Acute Plan: -Continue with carvedilol 12.5 mg twice daily -Continue Lisinopril 2.5 mg daily (6) Chronic kidney disease Code(s): N18.9 - Chronic kidney disease, unspecified Status: Acute Plan: Creatinine: improving (7) Nutrition, metabolism, and development symptoms Code(s): R63.8 - Other symptoms and signs concerning food and fluid intake Status: Acute Plan: Fluids: Oral fluids only, restrict to 1.5 L due to CHF Electrolytes: Monitor and replete as needed Nutrition: Cardiac and diabetic diet. Salt restricted 2g daily. <Abid Marlee Boothe N - 05/25/18 11:05> - Assessment and Plan 63-year-old male presented with acute on chronic CHF exacerbation. Elevated BNP with bilateral 2+ pitting edema, distended abdomen, crackles bilaterally throughout all lung [place]. Patient was started on 40 IV Lasix twice daily and improved. Cardiology consulted due to ejection fraction of less than 20% and plan to perform nuclear viability study to determine if he needs a CABG. Patient also has diabetes, on Levemir 20 units twice daily, high dose sliding scale. ACS rule out was negative. <Abishital Marlee Boothe N - 05/25/18 11:12> Discharge Planning: Possibly tomorrow, pending CT surg and cardio recs <Maddieshital Marlee Boothe Partha - 05/25/18 11:12> - Attending Attestation Patient case discussed with resident physicians I have independently examined the patient I have read the above note and agree with the assessment and plan as discussed with me I was involved in all medical decision making for this patient Cardiology and cardiothoracic surgery following -Continue diuresis with IV diuretics as well as CHF precautions including fluid restriction and salt restriction -Cardiothoracic evaluating patient for possible revascularization -Pulmonary will be consulted to evaluate and maximize pulmonary function as patient has a history of COPD -2D echocardiogram pending Jose Monroe MD <Jose Monroe - 05/25/18 14:50> <Abishital Marlee Boothe N - Last Filed: 05/25/18 11:05> (4) DM2 (diabetes mellitus, type 2) Qualifiers: Diabetes mellitus superintendent container terminal insulin use: with fpc use Diabetes mellitus complication status: with circulatory complication Diabetes mellitus complication detail: with other circulatory complications Qualified Code(s): E11.59 - Type 2 diabetes mellitus with other circulatory complications; Z79.4 - nursing home (current) use of insulin (5) HTN (hypertension) Qualifiers: Hypertension type: essential hypertension Qualified Code(s): I10 - Essential (primary) hypertension (6) Chronic kidney disease Qualifiers: Chronic kidney disease stage: unspecified stage Qualified Code(s): N18.9 - Chronic kidney disease, unspecified <Jose Monroe - Last Filed: 05/25/18 14:50> (4) DM2 (diabetes mellitus, type 2) Qualifiers: Diabetes mellitus fpc insulin use: with fpc use Diabetes mellitus complication status: with circulatory complication Diabetes mellitus complication detail: with other circulatory complications Qualified Code(s): E11.59 - Type 2 diabetes mellitus with other circulatory complications; Z79.4 - nursing home (current) use of insulin (5) HTN (hypertension) Qualifiers: Hypertension type: essential hypertension Qualified Code(s): I10 - Essential (primary) hypertension (6) Chronic kidney disease Qualifiers: Chronic kidney disease stage: unspecified stage Qualified Code(s): N18.9 - Chronic kidney disease, unspecified <Marlee Rhodes N - Last Filed: 05/25/18 11:05> (4) DM2 (diabetes mellitus, type 2) Qualifiers: Diabetes mellitus superintendent container terminal insulin use: with fpc use Diabetes mellitus complication status: with circulatory complication Diabetes mellitus complication detail: with other circulatory complications Qualified Code(s): E11.59 - Type 2 diabetes mellitus with other circulatory complications; Z79.4 - ocean transportation intermediary (current) use of insulin (5) HTN (hypertension) Qualifiers: Hypertension type: essential hypertension Qualified Code(s): I10 - Essential (primary) hypertension (6) Chronic kidney disease Qualifiers: Chronic kidney disease stage: unspecified stage Qualified Code(s): N18.9 - Chronic kidney disease, unspecified <Jose Monroe - Last Filed: 05/25/18 14:50> (4) DM2 (diabetes mellitus, type 2) Qualifiers: Diabetes mellitus superintendent container terminal insulin use: with fpc use Diabetes mellitus complication status: with circulatory complication Diabetes mellitus complication detail: with other circulatory complications Qualified Code(s): E11.59 - Type 2 diabetes mellitus with other circulatory complications; Z79.4 - ocean transportation intermediary (current) use of insulin (5) HTN (hypertension) Qualifiers: Hypertension type: essential hypertension Qualified Code(s): I10 - Essential (primary) hypertension (6) Chronic kidney disease Qualifiers: Chronic kidney disease stage: unspecified stage Qualified Code(s): N18.9 - Chronic kidney disease, unspecified
--- NOTE | 2018-05-25 13:24 | P.PNCV ---
- Note Subjective/Hospital Course: 63-year-old gentleman with known multivessel disease and ejection fraction of less than 20%, who has had multiple admissions for congestive heart failure and a cardiac catheterization fairly recently showing severe multivessel disease. Was deemed not a candidate for surgery2/2 high-risk for surgical intervention based on his poor LV function and severe COPD with an FEV1 of 0.8 liters. He has been put on BiPAP and given diuresis and is already feeling notably better, we were reconsulted for re-evaluation for candidacy for surgery. PAST MEDICAL HISTORY: . Ischemic cardiomyopathy, ejection fraction less than 20%, Chronic systolic congestive heart failure, Severe multivessel coronary disease, Hypertension, Hyperlipidemia. Objective: Vital Signs - 24 hr 05/24/18 14:30 05/24/18 15:00 05/24/18 15:18 Temperature 97.6 F Pulse Rate 79 84 84 Respiratory Rate 18 22 Blood Pressure 130/77 Pulse Oximetry 98 05/24/18 15:19 05/24/18 16:00 05/24/18 17:00 Temperature 97.9 F Pulse Rate 80 82 Respiratory Rate 16 18 Blood Pressure 133/75 Pulse Oximetry 98 98 05/24/18 18:00 05/24/18 19:18 05/24/18 20:00 Temperature 98.7 F Pulse Rate 78 84 82 Respiratory Rate 22 18 Blood Pressure 137/80 Pulse Oximetry 98 05/24/18 21:00 05/24/18 21:07 05/24/18 22:00 Temperature Pulse Rate 82 82 Respiratory Rate 18 Blood Pressure Pulse Oximetry 05/24/18 22:54 05/24/18 23:00 05/25/18 00:00 Temperature 98.7 F Pulse Rate 92 H 82 85 Respiratory Rate 18 18 Blood Pressure 139/82 Pulse Oximetry 98 05/25/18 01:00 05/25/18 02:00 05/25/18 03:00 Temperature Pulse Rate 85 75 75 Respiratory Rate Blood Pressure Pulse Oximetry 05/25/18 03:09 05/25/18 04:00 05/25/18 05:00 Temperature 98.6 F Pulse Rate 83 75 81 Respiratory Rate 17 18 Blood Pressure 149/77 H Pulse Oximetry 98 05/25/18 05:32 05/25/18 07:00 05/25/18 07:47 Temperature 98.0 F Pulse Rate 75 79 75 Respiratory Rate 16 20 Blood Pressure 144/70 H Pulse Oximetry 99 99 05/25/18 08:00 05/25/18 09:00 05/25/18 10:00 Temperature Pulse Rate 78 76 74 Respiratory Rate Blood Pressure Pulse Oximetry 99 05/25/18 11:00 05/25/18 12:21 Temperature 98.2 F Pulse Rate 78 76 Respiratory Rate 20 16 Blood Pressure 123/71 Pulse Oximetry 96 Labs: Laboratory Results - last 12 hr 05/25/18 05/25/18 05/25/18 03:22 05:43 05:43 WBC 7.4 RBC 2.88 L Hgb 8.5 L Hct 25.8 L MCV 89.5 MCH 29.5 MCHC 33.0 RDW 16.0 Plt Count 241 MPV 8.0 Neut % (Auto) 61.7 Lymph % (Auto) 21.8 [place] % (Auto) 11.2 H Eos % (Auto) 4.8 H Baso % (Auto) 0.5 Neut # (Auto) 4.6 Lymph # (Auto) 1.6 [place] # (Auto) 0.8 Eos # (Auto) 0.4 Baso # (Auto) 0.0 WBC Differential . Differential Comment Auto diff final Sodium 141 Potassium 4.4 Chloride 105 Carbon Dioxide 32.2 H Anion Gap 4 L BUN 42 H Creatinine 2.12 H Estimated GFR 32 L POC Glucose 118 H Random Glucose 174 H Calcium 8.5 05/25/18 05/25/18 08:00 11:31 WBC RBC Hgb Hct MCV MCH MCHC RDW Plt Count MPV Neut % (Auto) Lymph % (Auto) [place] % (Auto) Eos % (Auto) Baso % (Auto) Neut # (Auto) Lymph # (Auto) [place] # (Auto) Eos # (Auto) Baso # (Auto) WBC Differential Differential Comment Sodium Potassium Chloride Carbon Dioxide Anion Gap BUN Creatinine Estimated GFR POC Glucose 210 H 197 H Random Glucose Calcium Result Diagrams: 05/25/18 05:43 05/25/18 05:43 - Plan (1) Hyperlipidemia (2) DM2 (diabetes mellitus, type 2) (3) HTN (hypertension) (4) CHF (congestive heart failure), NYHA class IV (5) Chronic kidney disease (1) Hyperlipidemia Qualifiers: Hyperlipidemia type: unspecified Qualified Code(s): E78.5 - Hyperlipidemia, unspecified (2) DM2 (diabetes mellitus, type 2) Qualifiers: 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 mellitus napping machine operator insulin use: with usp use Diabetes mellitus complication status: with circulatory complication Diabetes mellitus complication detail: with other circulatory complications Qualified Code(s): E11.59 - Type 2 diabetes mellitus with other circulatory complications; Z79.4 - industrial servicer (current) use of insulin (3) HTN (hypertension) Qualifiers: Hypertension type: essential hypertension Qualified Code(s): I10 - Essential (primary) hypertension (4) CHF (congestive heart failure), NYHA class IV Qualifiers: Congestive heart failure type: combined Congestive heart failure chronicity: acute on chronic Qualified Code(s): I50.43 - Acute on chronic combined systolic (congestive) and diastolic (congestive) heart failure (5) Chronic kidney disease Qualifiers: Chronic kidney disease stage: unspecified stage Qualified Code(s): N18.9 - Chronic kidney disease, unspecified
--- NOTE | 2018-05-25 15:51 | ECHRPT ---
Indication: CONCLUSIONS Normal left ventricular size. Wall thickness is normal. The left ventricular systolic function is low normal with an estimated ejection fraction of 50%. N o definite regional wall motion abnormalities. There is trace tricuspid valve regurgitation. Mild mitral valve regurgitation. BP: / HR: Rhythm: Sinus MEASUREMENTS (Male / Female) Normal Values Technical Quality:Poor 2D ECHO LV Diastolic Diameter PLAX 5.0 cm 4.2 - 5.9 / 3.9 - 5.3 cm LV Systolic Diameter PLAX 3.9 cm IVS Diastolic Thickness 0.9 cm 0.6 - 1.0 / 0.6 - 0.9 cm LVPW Diastolic Thickness 1.0 cm 0.6 - 1.0 / 0.6 - 0.9 cm LV Relative Wall Thickness 0.4 RV Internal Dim ED PLAX 3.0 cm LA Systolic Diameter LX 3.9 cm 3.0 - 4.0 / 2.7 - 3.8 cm DOPPLER AV Peak Velocity 137.0 cm/s AV Peak Gradient 7.5 mmHg LVOT Peak Velocity 54.8 cm/s LVOT Peak Gradient 1.2 mmHg MR Peak Velocity 408.0 cm/s MR Peak Gradient 66.6 mmHg TR Peak Velocity 110.0 cm/s TR Peak Gradient 4.8 mmHg Right Atrial Pressure 10.0 mmHg Pulmonary Artery Systolic Pressu 14.8 mmHg Right Ventricular Systolic Press 14.8 mmHg FINDINGS LEFT VENTRICLE Normal left ventricular size. Wall thickness is normal. The left ventricular systolic function is low normal with an estimated ejection fraction of 50%. N o definite regional wall motion abnormalities. RIGHT VENTRICLE Normal right ventricular size and systolic function. LEFT ATRIUM The left atrial size is upper limits of normal. RIGHT ATRIUM The right atrial size is normal. ATRIAL SEPTUM Normal atrial septal thickness without atrial level shunting by limited color doppler interrogation. AORTA The aortic root and proximal ascending aorta are normal in size on limited imaging. MITRAL VALVE Mild mitral valve regurgitation. AORTIC VALVE Trileaflet aortic valve. No aortic valve stenosis or regurgitation. TRICUSPID VALVE There is trace tricuspid valve regurgitation. PULMONARY VALVE No pulmonary valve regurgitation or stenosis. VESSELS The inferior vena cava is normal in size. PERICARDIUM A left sided pleural effusion is present. Jake Magana MD (Electronically Signed) Final Date:25 May 2018 15:50
--- NOTE | 2018-05-25 18:14 | P.PNNP ---
Subjective Interval history: Patient is alert, breathing is better, with nasal cannula. Physical Exam Vital signs: Vital Signs 05/24/18 19:18 05/24/18 20:00 05/24/18 21:00 Temperature 98.7 F Pulse Rate 84 82 82 Respiratory Rate 22 18 Blood Pressure 137/80 Pulse Oximetry 98 05/24/18 21:07 05/24/18 22:00 05/24/18 22:54 Temperature Pulse Rate 82 92 H Respiratory Rate 18 18 Blood Pressure Pulse Oximetry 05/24/18 23:00 05/25/18 00:00 05/25/18 01:00 Temperature 98.7 F Pulse Rate 82 85 85 Respiratory Rate 18 Blood Pressure 139/82 Pulse Oximetry 98 05/25/18 02:00 05/25/18 03:00 05/25/18 03:09 Temperature Pulse Rate 75 75 83 Respiratory Rate 17 Blood Pressure Pulse Oximetry 05/25/18 04:00 05/25/18 05:00 05/25/18 05:32 Temperature 98.6 F Pulse Rate 75 81 75 Respiratory Rate 18 Blood Pressure 149/77 H Pulse Oximetry 98 05/25/18 07:00 05/25/18 07:47 05/25/18 08:00 Temperature 98.0 F Pulse Rate 79 75 78 Respiratory Rate 16 20 Blood Pressure 144/70 H Pulse Oximetry 99 99 99 05/25/18 09:00 05/25/18 10:00 05/25/18 11:00 Temperature 98.2 F Pulse Rate 76 74 78 Respiratory Rate 20 Blood Pressure 123/71 Pulse Oximetry 96 05/25/18 12:00 05/25/18 12:21 05/25/18 13:00 Temperature Pulse Rate 74 76 78 Respiratory Rate 16 Blood Pressure Pulse Oximetry 05/25/18 14:00 05/25/18 15:00 05/25/18 15:58 Temperature 98.4 F Pulse Rate 82 82 88 Respiratory Rate 16 18 Blood Pressure 148/79 H Pulse Oximetry 99 05/25/18 16:00 05/25/18 17:00 05/25/18 18:00 Temperature Pulse Rate 90 88 88 Respiratory Rate Blood Pressure Pulse Oximetry Intake & Output 05/24/18 05/25/18 05/25/18 18:59 06:59 18:59 Intake Total 240 / 240 960 / 960 Output Total 1100 / 1100 2000 / 2000 Balance -860 / -860 -1040 / -1040 Weight 107 kg Intake: Oral 240 / 240 960 / 960 Output: Urine 1100 / 1100 Urine Amount (Catheter) 1999 Indwelling Urethral Catheter 1999 Other: Date of Last Bowel Movement 05/22/18 05/25/18 Narrative: GENERAL: Alert and oriented. SKIN: Warm and dry. NECK: Supple, trachea midline. CARDIOVASCULAR: Regular rate and rhythm without murmurs, gallops, or rubs. RESPIRATORY: Breath sounds equal bilaterally. No accessory muscle use. GASTROINTESTINAL: Abdomen distended, non-tender to palpation. GENITOURINARY: Indwelling Chung catheter. Scrotal edema. MUSCULOSKELETAL: No cyanosis, bilateral lower extremity edema. BACK: Nontender without obvious deformity. No CVA tenderness. - Urinary Catheter Management Indwelling Urethral Catheter Cath placed during this visit: yes Reason for continuing: Hourly intake/output Insertion date: 05/22/18 Insertion time: 12:37 Assessment and Plan - Assessment (1) Acute kidney injury superimposed on chronic kidney disease Code(s): N17.9 - Acute kidney failure, unspecified; N18.9 - Chronic kidney disease, unspecified Status: Acute Plan: Patient seen and examined, agree with above. Patient with chronic kidney disease and develop ALISHA. Has Congestive heart disease and low EF. Continue Lasix, patient has anasarca. Creatinine is slightly better, now 2.1. Continue diuretics, try to keep in negative fluid balance. Follow the urine out put and BMP. (2) Hyperlipidemia Code(s): E78.5 - Hyperlipidemia, unspecified Status: Acute Qualifiers: Hyperlipidemia type: unspecified Qualified Code(s): E78.5 - Hyperlipidemia , unspecified Plan: On atorvastatin (3) Edema Code(s): R60.9 - Edema, unspecified Status: Acute Plan: Continue lasix maintain strict I+O Daily weights Low sodium diet. 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 (5) CHF (congestive heart failure), NYHA class IV Code(s): I50.9 - Heart failure, unspecified Status: Acute Qualifiers: Congestive heart failure type: combined Congestive heart failure chronicity : acute on chronic Qualified Code(s): I50.43 - Acute on chronic combined systolic (congestive) and diastolic (congestive) heart failure Plan: On lasix, patient reports that edema is improving. (6) Elevated troponin Code(s): R74.8 - Abnormal levels of other serum enzymes Status: Acute Plan: Cardiology following, may need CABG
[2018-05-25] MEDS: Acetaminophen 325 MG Tablet PO PRN (20:12)
--- NOTE | 2018-05-25 20:19 | MB ---
cc: Suman Carlson MD DATE: 05/25/2018 63 YO WM with multivessel coronary artery disease, severe cardiomyopathy with an ejection fraction of 20%, severe lung disease with an FEV1 of 0.81%, congestive heart failure. The patient came to the hospital with worsening of his shortness of breath for 4-5 days to the extent that walking a few steps made him short of breath. At his baseline, he can walk about 20-30 feet and he uses a mobility scooter for the last 2 years or so. He did not have any chest pain. No nausea or vomiting. Because of worsening of his symptoms, he came to the hospital. He had a workup done. His sodium was 137, potassium 5.6, chloride 104, CO2 of 23 . 1. Multivessel coronary artery disease, not a surgical candidate. 2. Severe cardiomyopathy with an ejection fraction of 20%. 3. Diabetes mellitus. 4. Neuropathy. 5. COPD. 6. Restrictive lung disease. 7. Chronic kidney disease. 8. Hypertension. 9. Hyperlipidemia. MEDICATIONS: He is currently takin. Hydrocodone 10/325 mg every 6 hours as needed 2. Nebulizer treatment with DuoNeb every 4 hours. 3. Ecotrin 81 mg daily. 4. Lipitor 80 mg a day. 5. Tessalon 100 mg q.8 hours. 6. Symbicort 160/4.5 two puffs twice a day. 7. Coreg 12.5 mg twice a day. 8. Plavix 75 mg a day. 9. Lovenox 30 mg a day. 10. Famotidine 10 mg twice a day. 11. Lasix 40 mg daily. 12. Insulin 30 units b.i.d. 13. Lisinopril 2.5 mg a day. 14. Lyrica 75 mg twice a day. 15. Flomax 0.4 mg a day. ALLERGIES: NO KNOWN DRUG ALLERGIES. SOCIAL HISTORY: He is single. He was for 3 months or so when he was only 19 years old. He has a long history of smoking 2-3 packs a day for 45 years, which he quit 2 months ago. He used to drink before. He used to work [place] metal [place]. FAMILY HISTORY: He has no children. No siblings. He lives in a motel. He lives alone. REVIEW OF SYSTEMS: He cannot walk more than a few steps. He uses a motorized scooter. He has increased weight, swelling in his legs and a large scrotum. No seizure, stroke or epilepsy. No DVT or pulmonary embolism. PHYSICAL EXAMINATION: GENERAL: Obese male, mildly short of breath. VITAL SIGNS: His blood pressure is 148/79, heart rate 87, respirations 16, temperature 98.4. HEENT: Pupils are reactive to light. He is legally blind. NECK: Supple. JVP not raised. CHEST: He has rales at the bases. HEART: S1 and S2 are normal. ABDOMEN: Obese, nontender. Bowel sounds are present. EXTREMITIES: 2+ pedal edema with chronic skin changes. GENITOURINARY: He has large scrotal swelling because of the fluid. CENTRAL NERVOUS SYSTEM: He is alert and oriented x 3. No focal deficits. IMPRESSION: 1. Severe pulmonary disease. He has obstructive lung disease as well as restrictive lung disease. His FEV1 is 0.81. 2. Severe cardiomyopathy with an ejection fraction of 20%. 3. Multivessel coronary artery disease. 4. Diabetes mellitus. 5. Neuropathy. 6. Obesity. 7. Renal insufficiency. PLAN: He is not considered a surgical candidate because of his multiple problems and severe cardiomyopathy. He will need complete pulmonary function studies with lung volumes and diffusion capacity to evaluate his restrictive lung disease. We will continue with aerosol treatments and Symbicort twice a day. Supplement his oxygen. Monitor his electrolytes. Further treatment depending on the course in the hospital. Thank you for this consult. MD DUKE Altamirano/nichole/margaret , 07:23 PM , 07:35 PM FAIZAN
[2018-05-25] MEDS: Benzonatate 100 MG Capsule PO PRN (23:59)
[2018-05-26] MEDS: Insulin NovoLOG Aspart Correctional Sugar Inj SQ SCH ×5 (06:40→21:10)
[2018-05-26] MEDS: Pregabalin 75 MG Capsule PO SCH ×3 (06:40→21:09)
[2018-05-26 06:54] LABS: Calcium 8.2 mg/dL (8.5-10.1); Carbon Dioxide 32.8 meq/L (21.0-32.0); Potassium 4.4 meq/L (3.5-5.1)
[2018-05-26] MEDS: Famotidine 20 MG Tablet PO SCH ×2 (08:07→21:07)
[2018-05-26] MEDS: Carvedilol 12.5 MG Tablet PO SCH ×2 (08:07→21:07)
[2018-05-26] MEDS: Lisinopril 5 MG Tablet PO SCH (08:07)
[2018-05-26] MEDS: Senna/Docusate Sodium 8.6/50 MG Tablet PO SCH ×2 (08:07→21:07)
[2018-05-26] MEDS: Furosemide 40 MG Tablet PO SCH (08:08)
[2018-05-26] MEDS: Insulin Detemir Inj 1,000 UNIT/10 ML Vial SQ SCH ×2 (08:08→21:10)
[2018-05-26] MEDS: Enoxaparin Inj 30 MG/0.3 ML Syringe SQ SCH (08:20)
[2018-05-26] MEDS ORDERED: Insulin Detemir Inj 1,000 UNIT/10 ML Vial SQ ONE (09:30)
--- NOTE | 2018-05-26 09:53 | P.PNFP ---
Subjective Interval history: Patient was seen at bedside this morning in the presence of a friend. Patient reports breathing much better overnight. He denies any chest pain at this time. He also reports feel like his abdomen is now smaller and less swollen. The discussion was had with the patient about prognosis as well as way forward with respect to cardiology, nephrology, and nuclear viability test. Patient reported understanding and had no further questions. Patient thanked us for our care. <Joshua Shah - 05/26/18 12:17> Results - Labs Result diagrams: 05/25/18 05:43 05/26/18 06:04 <Jose Monroe - 05/26/18 14:53> Abnormal lab results 05/25/18 05/25/18 05/26/18 Range/Units 16:51 19:50 04:36 Carbon Dioxide (21.0-32.0) meq/L BUN (7-18) mg/dL Creatinine (0.60-1.30) mg/dL Estimated GFR (>89) mL/min POC Glucose 265 H 238 H 124 H (68-110) mg/dl Random Glucose (74-106) mg/dL Calcium (8.5-10.1) mg/dL 05/26/18 05/26/18 05/26/18 Range/Units 06:04 08:04 11:57 Carbon Dioxide 32.8 H (21.0-32.0) meq/L BUN 40 H (7-18) mg/dL Creatinine 1.90 H (0.60-1.30) mg/dL Estimated GFR 36 L (>89) mL/min POC Glucose 156 H 209 H (68-110) mg/dl Random Glucose 120 H (74-106) mg/dL Calcium 8.2 L (8.5-10.1) mg/dL BMP 05/26/18 06:04 Sodium 141 Potassium 4.4 Chloride 103 Carbon Dioxide 32.8 H BUN 40 H Creatinine 1.90 H Calcium 8.2 L <Jose Monroe - 05/26/18 14:53> Abnormal lab results 05/25/18 05/25/18 05/25/18 Range/Units 11:31 16:51 19:50 Carbon Dioxide (21.0-32.0) meq/L BUN (7-18) mg/dL Creatinine (0.60-1.30) mg/dL Estimated GFR (>89) mL/min POC Glucose 197 H 265 H 238 H (68-110) mg/dl Random Glucose (74-106) mg/dL Calcium (8.5-10.1) mg/dL 05/26/18 05/26/18 05/26/18 Range/Units 04:36 06:04 08:04 Carbon Dioxide 32.8 H (21.0-32.0) meq/L BUN 40 H (7-18) mg/dL Creatinine 1.90 H (0.60-1.30) mg/dL Estimated GFR 36 L (>89) mL/min POC Glucose 124 H 156 H (68-110) mg/dl Random Glucose 120 H (74-106) mg/dL Calcium 8.2 L (8.5-10.1) mg/dL BMP 05/26/18 06:04 Sodium 141 Potassium 4.4 Chloride 103 Carbon Dioxide 32.8 H BUN 40 H Creatinine 1.90 H Calcium 8.2 L <Joshua Shah O - 05/26/18 09:52> Physical Exam Vital signs: Vital Signs 05/25/18 15:00 05/25/18 15:58 05/25/18 16:00 Temperature 98.4 F Pulse Rate 82 88 90 Respiratory Rate 16 18 Blood Pressure 148/79 H Pulse Oximetry 99 05/25/18 17:00 05/25/18 18:00 05/25/18 19:00 Temperature 98.4 F Pulse Rate 88 88 88 Respiratory Rate 16 Blood Pressure 174/78 H Pulse Oximetry 96 05/25/18 19:35 05/25/18 20:00 05/25/18 21:00 Temperature Pulse Rate 75 88 86 Respiratory Rate 18 Blood Pressure Pulse Oximetry 96 05/25/18 22:00 05/25/18 23:00 05/26/18 00:00 Temperature 97.9 F Pulse Rate 86 81 80 Respiratory Rate 18 Blood Pressure 154/55 H Pulse Oximetry 99 05/26/18 01:00 05/26/18 02:00 05/26/18 02:41 Temperature Pulse Rate 80 70 76 Respiratory Rate 18 Blood Pressure Pulse Oximetry 05/26/18 03:00 05/26/18 04:00 05/26/18 05:00 Temperature 97.2 F L Pulse Rate 74 74 78 Respiratory Rate 16 Blood Pressure 153/75 H Pulse Oximetry 100 05/26/18 06:00 05/26/18 07:00 05/26/18 08:00 Temperature Pulse Rate 78 81 80 Respiratory Rate 20 Blood Pressure 137/91 H Pulse Oximetry 100 100 05/26/18 08:02 05/26/18 08:04 05/26/18 09:00 Temperature Pulse Rate 81 82 Respiratory Rate 18 Blood Pressure Pulse Oximetry 96 05/26/18 10:00 05/26/18 11:00 05/26/18 11:34 Temperature 98.3 F Pulse Rate 76 80 79 Respiratory Rate 20 18 Blood Pressure 131/81 Pulse Oximetry 96 05/26/18 12:00 05/26/18 13:00 Temperature Pulse Rate 86 84 Respiratory Rate Blood Pressure Pulse Oximetry Intake & Output 05/25/18 05/26/18 05/26/18 18:59 06:59 18:59 Intake Total 960 / 960 Output Total 1999 950 / 950 Balance -1040 / -1040 -950 / -950 Weight 107 kg Intake: Oral 960 / 960 Output: Urine 950 / 950 Urine Amount (Catheter) 1999 Indwelling Urethral Catheter 1999 Other: Date of Last Bowel Movement 05/25/18 05/25/18 <Jose Monroe - 05/26/18 14:53> Vital Signs 05/25/18 10:00 05/25/18 11:00 05/25/18 12:00 Temperature 98.2 F Pulse Rate 74 78 74 Respiratory Rate 20 Blood Pressure 123/71 Pulse Oximetry 96 05/25/18 12:21 05/25/18 13:00 05/25/18 14:00 Temperature Pulse Rate 76 78 82 Respiratory Rate 16 Blood Pressure Pulse Oximetry 05/25/18 15:00 05/25/18 15:58 05/25/18 16:00 Temperature 98.4 F Pulse Rate 82 88 90 Respiratory Rate 16 18 Blood Pressure 148/79 H Pulse Oximetry 99 05/25/18 17:00 05/25/18 18:00 05/25/18 19:00 Temperature 98.4 F Pulse Rate 88 88 88 Respiratory Rate 16 Blood Pressure 174/78 H Pulse Oximetry 96 05/25/18 19:35 05/25/18 20:00 05/25/18 21:00 Temperature Pulse Rate 75 88 86 Respiratory Rate 18 Blood Pressure Pulse Oximetry 96 05/25/18 22:00 05/25/18 23:00 05/26/18 00:00 Temperature 97.9 F Pulse Rate 86 81 80 Respiratory Rate 18 Blood Pressure 154/55 H Pulse Oximetry 99 05/26/18 01:00 05/26/18 02:00 05/26/18 02:41 Temperature Pulse Rate 80 70 76 Respiratory Rate 18 Blood Pressure Pulse Oximetry 05/26/18 03:00 05/26/18 04:00 05/26/18 05:00 Temperature 97.2 F L Pulse Rate 74 74 78 Respiratory Rate 16 Blood Pressure 153/75 H Pulse Oximetry 100 05/26/18 06:00 05/26/18 07:00 05/26/18 08:02 Temperature Pulse Rate 78 78 81 Respiratory Rate 18 Blood Pressure Pulse Oximetry 05/26/18 08:04 Temperature Pulse Rate Respiratory Rate Blood Pressure Pulse Oximetry 96 Intake & Output 05/25/18 05/26/18 05/26/18 18:59 06:59 18:59 Intake Total 960 / 960 Output Total 1999 950 / 950 Balance -1040 / -1040 -950 / -950 Weight 107 kg Intake: Oral 960 / 960 Output: Urine 950 / 950 Urine Amount (Catheter) 1999 Indwelling Urethral Catheter 1999 Other: Date of Last Bowel Movement 05/25/18 <Joshua Shah - 05/26/18 09:52> Narrative: GENERAL: Alert and oriented. SKIN: Warm and dry. NECK: Supple, trachea midline. CARDIOVASCULAR: Regular rate and rhythm without murmurs, gallops, or rubs. RESPIRATORY: Breath sounds equal bilaterally. No accessory muscle use. GASTROINTESTINAL: Abdomen distended, non-tender to palpation. GENITOURINARY: Indwelling Chung catheter. Scrotal edema slightly improved from yesterday. MUSCULOSKELETAL: No cyanosis, 2+ pitting edema up to just below the knees in both lower extremities bilaterally. Evidence of venous stasis in both lower extremities. BACK: Nontender without obvious deformity. No CVA tenderness. Patient has what appears to be a buffalo hump overlying posterior neck. <Joshua Shah - 05/26/18 12:12> - Urinary Catheter Management Indwelling Urethral Catheter Cath placed during this visit: no <Jose Monroe - 05/26/18 14:53> yes <Joshua Shah - 05/26/18 14:05> Reason for continuing: Hourly intake/output <Joshua Shah - 05/26/18 09:52 > Insertion date: 05/22/18 <Joshua Shah - 05/26/18 09:52> Insertion time: 12:37 <Joshua Shah - 05/26/18 09:52> Assessment and Plan - Assessment (1) CHF (congestive heart failure), NYHA class IV Code(s): I50.9 - Heart failure, unspecified Status: Acute (2) COPD (chronic obstructive pulmonary disease) Code(s): J44.9 - Chronic obstructive pulmonary disease, unspecified Status: Acute (3) Ischemic cardiomyopathy Code(s): I25.5 - Ischemic cardiomyopathy Status: Acute (4) CAD (coronary artery disease) Code(s): I25.10 - Atherosclerotic heart disease of [place] coronary artery without angina pectoris Status: Acute (5) DM2 (diabetes mellitus, type 2) Code(s): E11.9 - Type 2 diabetes mellitus without complications Status: Acute (6) HTN (hypertension) Code(s): I10 - Essential (primary) hypertension Status: Acute (7) Chronic kidney disease Code(s): N18.9 - Chronic kidney disease, unspecified Status: Acute (8) Nutrition, metabolism, and development symptoms Code(s): R63.8 - Other symptoms and signs concerning food and fluid intake Status: Acute <Jose Monroe - 05/26/18 14:53> (1) CHF (congestive heart failure), NYHA class IV Code(s): I50.9 - Heart failure, unspecified Status: Acute Plan: -Improving, patient diuresed 1L overnight -Echo showed EF of 50% -Continue Lasix 40 mg PO Daily -Con't to monitor I's and O's strictly with daily weights * Patient has an indwelling ureteral catheter 05/22 -Fluid restriction 1.5 L -Salt restriction 2 g -Cardiology following, nuclear viability study today -Nephrology consulted recommend continued diuresis despite Cr level -CT surgery following appreciate recs (2) COPD (chronic obstructive pulmonary disease) Code(s): J44.9 - Chronic obstructive pulmonary disease, unspecified Status: Acute Plan: 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 Carlson on board. Satting 100% 4 L nasal cannula. FEV1 .8L Continue Symbicort Continue Atrovent BID Albuterol PRN O2 as needed Incentive spirometry BIPAP at night (3) Ischemic cardiomyopathy Code(s): I25.5 - Ischemic cardiomyopathy Status: Acute Plan: -EF 50%, FEV1 0.8. Poor surgical candidate. -Continue carvedilol and JEREMY inhibitor -Cardiology on board; nuclear viability study planned -Follow-up with cardiothoracic for recommendations on possible CABG (4) CAD (coronary artery disease) Code(s): I25.10 - Atherosclerotic heart disease of [place] coronary artery without angina pectoris Status: Acute Plan: -Patient with history of previous ID -Continue aspirin and Plavix -Continue atorvastatin 80 mg p.o. HS (5) DM2 (diabetes mellitus, type 2) Code(s): E11.9 - Type 2 diabetes mellitus without complications Status: Acute Plan: Not well controlled. Check A1c, patient's last A1c was 14.2 in January 2017 Use of 45 units total of SSI over the last 12 hrs - Levemir insulin increased to 45 units BID - High dose SSI (6) HTN (hypertension) Code(s): I10 - Essential (primary) hypertension Status: Acute Plan: -Continue with carvedilol 12.5 mg twice daily -Continue Lisinopril 2.5 mg daily (7) Chronic kidney disease Code(s): N18.9 - Chronic kidney disease, unspecified Status: Acute Plan: Creatinine: improving, 1.90 on 05/26 (8) Nutrition, metabolism, and development symptoms Code(s): R63.8 - Other symptoms and signs concerning food and fluid intake Status: Acute Plan: Fluids: Oral fluids only, restrict to 1.5 L due to CHF Electrolytes: Monitor and replete as needed Nutrition: Cardiac and diabetic diet. Salt restricted 2g daily. <Joshua Shah - 05/26/18 13:53> - Assessment and Plan 63-year-old male presented with acute on chronic CHF exacerbation. Elevated BNP with bilateral 2+ pitting edema, distended abdomen, crackles bilaterally throughout all lung watkins. Patient was started on 40 IV Lasix twice daily and improved. Cardiology consulted due to ejection fraction of less than 20% and plan to perform nuclear viability study to determine if he needs a CABG. Patient also has diabetes, on Levemir 20 units twice daily, high dose sliding scale. ACS rule out was negative. <Joshua Shah - 05/26/18 09:52> - Attending Attestation Pt. examined independent of resident physicians this morning during medical rounds I have read the above note and agree with the assessment/plan as discussed with me I was involved in all medical decision making for this patient Jose Monroe MD <Jose Monroe - 05/26/18 14:53> <Joshua Shah - Last Filed: 05/26/18 13:53> (1) CHF (congestive heart failure), NYHA class IV Qualifiers: Congestive heart failure type: combined Congestive heart failure chronicity: acute on chronic Qualified Code(s): I50.43 - Acute on chronic combined systolic (congestive) and diastolic (congestive) heart failure (5) DM2 (diabetes mellitus, type 2) Qualifiers: Diabetes mellitus rn long term care insulin use: with senior living use Diabetes mellitus complication status: with circulatory complication Diabetes mellitus complication detail: with other circulatory complications Qualified Code(s): E11.59 - Type 2 diabetes mellitus with other circulatory complications; Z79.4 - [facility] (current) use of insulin (6) HTN (hypertension) Qualifiers: Hypertension type: essential hypertension Qualified Code(s): I10 - Essential (primary) hypertension (7) Chronic kidney disease Qualifiers: Chronic kidney disease stage: unspecified stage Qualified Code(s): N18.9 - Chronic kidney disease, unspecified <Jose Monroe - Last Filed: 05/26/18 14:53> (1) CHF (congestive heart failure), NYHA class IV Qualifiers: Congestive heart failure type: combined Congestive heart failure chronicity: acute on chronic Qualified Code(s): I50.43 - Acute on chronic combined systolic (congestive) and diastolic (congestive) heart failure (5) DM2 (diabetes mellitus, type 2) Qualifiers: Diabetes mellitus rn long term care insulin use: with senior living use Diabetes mellitus complication status: with circulatory complication Diabetes mellitus complication detail: with other circulatory complications Qualified Code(s): E11.59 - Type 2 diabetes mellitus with other circulatory complications; 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 <Joshua Shah O - Last Filed: 05/26/18 13:53> (1) CHF (congestive heart failure), NYHA class IV Qualifiers: Congestive heart failure type: combined Congestive heart failure chronicity: acute on chronic Qualified Code(s): I50.43 - Acute on chronic combined systolic (congestive) and diastolic (congestive) heart failure (5) DM2 (diabetes mellitus, type 2) Qualifiers: Diabetes mellitus senior living insulin use: with rn long term care use Diabetes mellitus complication status: with circulatory complication Diabetes mellitus complication detail: with other circulatory complications Qualified Code(s): E11.59 - Type 2 diabetes mellitus with other circulatory complications; 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 <Fer,Jose - Last Filed: 05/26/18 14:53> (1) CHF (congestive heart failure), NYHA class IV Qualifiers: Congestive heart failure type: combined Congestive heart failure chronicity: acute on chronic Qualified Code(s): I50.43 - Acute on chronic combined systolic (congestive) and diastolic (congestive) heart failure (5) DM2 (diabetes mellitus, type 2) Qualifiers: Diabetes mellitus rn long term care insulin use: with rn long term care use Diabetes mellitus complication status: with circulatory complication Diabetes mellitus complication detail: with other circulatory complications Qualified Code(s): E11.59 - Type 2 diabetes mellitus with other circulatory complications; 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
[2018-05-26] MEDS: Budesonide-Formoterol 160/4.5 MCG 6 GM Inhaler INH SCH ×3 (10:59→22:15)
--- NOTE | 2018-05-26 14:11 | P.PNCA ---
Subjective Interval history: Follow up for Dr. Montiel Feels well, no complaints Medications and Allergies Active Medications: Active Medications Acetaminophen (Tylenol) 650 mg PO Q4H PRN PRN Reason: Temp > 100.4, Pain scale 1-2 Last Admin: 05/25/18 20:12 Dose: 650 mg Hydrocodone Bitart/Acetaminophen (Adak 10/325) 1 tab PO Q6H PRN PRN Reason: Pain scale 3-10 Last Admin: 05/26/18 08:20 Dose: 1 tab Al Hydroxide/Mg Hydroxide (Milk Of Cheryl Liq) 30 ml PO Q12H PRN PRN Reason: Mild Constipation Albuterol (Duoneb Neb ([facility])) 1 ampul NEB Q4HR NEB [facility] Last Admin: 05/26/18 11:33 Dose: 1 ampul Aspirin (Ecotrin) 81 mg PO DAILY [facility] Last Admin: 05/26/18 08:07 Dose: 81 mg Atorvastatin Calcium (Lipitor) 80 mg PO HS [facility] Last Admin: 05/25/18 20:12 Dose: 80 mg Benzonatate (Tessalon Perles) 100 mg PO Q8H PRN PRN Reason: COUGH Last Admin: 05/25/18 23:59 Dose: 100 mg Bisacodyl (Dulcolax Supp) 10 mg RECTAL DAILY PRN PRN Reason: SEVERE CONSITIPATION Budesonide/Formoterol Fumarate (Symbicort 160/4.5 Mcg Inh) 2 puff INH BID [facility] Last Admin: 05/26/18 10:59 Dose: 2 puff Carvedilol (Coreg) 12.5 mg PO BID [facility] Last Admin: 05/26/18 08:07 Dose: 12.5 mg Clopidogrel Bisulfate (Plavix) 75 mg PO DAILY [facility] Last Admin: 05/26/18 08:07 Dose: 75 mg Dextrose (D50w Vial) 50 ml IV.PUSH UNSCH PRN PRN Reason: PER HYPOGLYCEMIA PROTOCOL Enoxaparin Sodium (Lovenox Inj) 30 mg SQ DAILY [facility] Last Admin: 05/26/18 08:20 Dose: 30 mg Famotidine (Pepcid) 10 mg PO BID [facility] Last Admin: 05/26/18 08:07 Dose: 10 mg Furosemide (Lasix) 40 mg PO DAILY [facility] Last Admin: 05/26/18 08:08 Dose: 40 mg Glucagon (Glucagon Inj) 1 mg OTHER PRN PRN PRN Reason: for Hypoglycemia Protocol Insulin Aspart (Novolog Insulin [facility] Sugar Inj) 0 unit SQ ACHS AND 3AM [place]; Protocol Last Admin: 05/26/18 12:01 Dose: 10 unit Insulin Detemir (Levemir Inj) 45 unit SQ BID [facility] Lactulose (Lactulose Liq) 30 ml PO DAILY PRN PRN Reason: SEVERE CONSITIPATION Lisinopril (Prinivil) 2.5 mg PO DAILY [facility] Last Admin: 05/26/18 08:07 Dose: 2.5 mg Ondansetron HCl (Zofran Inj) 4 mg IV.PUSH Q6H PRN PRN Reason: NAUSEA OR VOMITING Pregabalin (Lyrica) 75 mg PO BID [facility] Last Admin: 05/26/18 08:08 Dose: 75 mg Senna/Docusate Sodium (Abiola-Colace) 1 tab PO BID [facility] Last Admin: 05/26/18 08:07 Dose: 1 tab Sennosides (Senokot) 17.2 mg PO Q12H PRN PRN Reason: Moderate Constipation Sodium Chloride (Ns Flush) 2 ml IV.FLUSH PRN PRN PRN Reason: FLUSH AFTER USING IV ACCESS Sodium Chloride (Ns Flush) 2 ml IV.FLUSH BID [facility] Last Admin: 05/26/18 08:09 Dose: 2 ml Tamsulosin HCl (Flomax) 0.4 mg PO [facility] Last Admin: 05/25/18 20:09 Dose: 0.4 mg Allergies Allergy/AdvReac Type Severity Reaction Status Date / Time No Known Allergies Allergy Verified 03/27/18 10:29 Home Medications Medication Instructions Recorded Confirmed Type hydrocodone-acetaminophen [Adak] 1 tab PO Q6H 01/15/18 05/22/18 History insulin regular human [Humulin R 1 sliding scale dose SUB-Q UD 01/15/18 History Regular U-100 Insuln] lidocaine [Lidocaine Pain Relief] 1 patch TOPICAL Q8H 01/15/18 05/22/18 History ranitidine HCl [Zantac] 150 mg PO BID 01/15/18 05/22/18 History sitagliptin-metformin [Janumet] 1 tab PO DAILY 01/15/18 05/22/18 History tamsulosin [Flomax] 0.4 mg PO HS 01/15/18 05/22/18 History Physical Exam Vital signs: Vital Signs 05/25/18 15:00 05/25/18 15:58 05/25/18 16:00 Temperature 98.4 F Pulse Rate 82 88 90 Respiratory Rate 16 18 Blood Pressure 148/79 H Pulse Oximetry 99 05/25/18 17:00 05/25/18 18:00 05/25/18 19:00 Temperature 98.4 F Pulse Rate 88 88 88 Respiratory Rate 16 Blood Pressure 174/78 H Pulse Oximetry 96 05/25/18 19:35 05/25/18 20:00 05/25/18 21:00 Temperature Pulse Rate 75 88 86 Respiratory Rate 18 Blood Pressure Pulse Oximetry 96 05/25/18 22:00 05/25/18 23:00 05/26/18 00:00 Temperature 97.9 F Pulse Rate 86 81 80 Respiratory Rate 18 Blood Pressure 154/55 H Pulse Oximetry 99 05/26/18 01:00 05/26/18 02:00 05/26/18 02:41 Temperature Pulse Rate 80 70 76 Respiratory Rate 18 Blood Pressure Pulse Oximetry 05/26/18 03:00 05/26/18 04:00 05/26/18 05:00 Temperature 97.2 F L Pulse Rate 74 74 78 Respiratory Rate 16 Blood Pressure 153/75 H Pulse Oximetry 100 05/26/18 06:00 05/26/18 07:00 05/26/18 08:00 Temperature Pulse Rate 78 81 80 Respiratory Rate 20 Blood Pressure 137/91 H Pulse Oximetry 100 100 05/26/18 08:02 05/26/18 08:04 05/26/18 09:00 Temperature Pulse Rate 81 82 Respiratory Rate 18 Blood Pressure Pulse Oximetry 96 05/26/18 10:00 05/26/18 11:00 05/26/18 11:34 Temperature 98.3 F Pulse Rate 76 80 79 Respiratory Rate 20 18 Blood Pressure 131/81 Pulse Oximetry 96 Intake & Output 05/25/18 05/26/18 05/26/18 18:59 06:59 18:59 Intake Total 960 / 960 Output Total 1999 950 / 950 Balance -1040 / -1040 -950 / -950 Weight 107 kg Intake: Oral 960 / 960 Output: Urine 950 / 950 Urine Amount (Catheter) 1999 Indwelling Urethral Catheter 1999 Other: Date of Last Bowel Movement 05/25/18 05/25/18 Narrative: GENERAL: Alert and oriented. SKIN: Warm and dry. NECK: Supple, trachea midline. CARDIOVASCULAR: Regular rate and rhythm without murmurs, gallops, or rubs. RESPIRATORY: Breath sounds equal bilaterally. No accessory muscle use. GASTROINTESTINAL: Abdomen distended, non-tender to palpation. GENITOURINARY: Indwelling Chung catheter. Scrotal edema slightly improved from yesterday. MUSCULOSKELETAL: No cyanosis, 1+ pitting edema BACK: Nontender without obvious deformity. No CVA tenderness. Patient has what appears to be a buffalo hump overlying posterior neck. - Urinary Catheter Management Indwelling Urethral Catheter Cath placed during this visit: yes Reason for continuing: Hourly intake/output Insertion date: 05/22/18 Insertion time: 12:37 Results 05/25/18 05:43 05/26/18 06:04 CBC 05/25/18 Range/Units 05:43 WBC 7.4 (4.0-11.0) th/mm3 RBC 2.88 L (4.50-5.90) mil/mm3 Hgb 8.5 L (13.0-17.0) gm/dL Hct 25.8 L (39.0-51.0) % Plt Count 241 (150-450) th/mm3 Neut # (Auto) 4.6 (1.8-7.7) th/mm3 Lymph # (Auto) 1.6 (1.0-4.8) th/mm3 [place] # (Auto) 0.8 (0.0-0.9) th/mm3 Eos # (Auto) 0.4 (0.0-0.4) th/mm3 Baso # (Auto) 0.0 (0.0-0.2) th/mm3 Comprehensive Metabolic Panel 05/25/18 05/26/18 Range/Units 05:43 06:04 Sodium 141 141 (136-145) meq/L Potassium 4.4 4.4 (3.5-5.1) meq/L Chloride 105 103 (98-107) meq/L Carbon Dioxide 32.2 H 32.8 H (21.0-32.0) meq/L BUN 42 H 40 H (7-18) mg/dL Creatinine 2.12 H 1.90 H (0.60-1.30) mg/dL Calcium 8.5 8.2 L (8.5-10.1) mg/dL Intake and Output 05/25/18 05/26/18 05/26/18 22:59 06:59 14:59 Intake Total 960 / 960 Output Total 1999 950 / 950 Balance -1040 / -1040 -950 / -950 Intake: Oral 960 / 960 Output: Urine 950 / 950 Urine Amount (Catheter) 1999 Indwelling Urethral Catheter 1999 Other: Date of Last Bowel Movement 05/25/18 05/25/18 Weight 107 kg - Imaging and Cardiology Imaging: Impressions Myocardial Perfusion Scan Nuc Med 05/24/18 08:34 CONCLUSION: 1. Fixed defects involving the LAD and RCA distributions consistent with infarcts. 2. Extensive global hypokinesis with left ventricular ejection fraction equaling 32%. 3. No reversible defect to suggest ischemia. Assessment and Plan - Assessment (1) Ischemic cardiomyopathy Code(s): I25.5 - Ischemic cardiomyopathy Status: Acute (2) CHF (congestive heart failure), NYHA class IV Code(s): I50.9 - Heart failure, unspecified Status: Acute (3) Edema Code(s): R60.9 - Edema, unspecified Status: Acute (4) Cardiorenal syndrome Code(s): I13.10 - Hypertensive heart and chronic kidney disease without heart failure, with stage 1 through stage 4 chronic kidney disease, or unspecified chronic kidney disease Status: Acute - Plan 1. Ischemic cardiomyopathy Previous EF 20%, new echo read as EF 50%, but visually around 35% 2. Chronic systolic congestive heart failure. Diuresed well 3. Severe multivessel coronary disease. Nuclear stress test showing multiple areas of infarction Viability planned for today to evaluate if possible hibernating cardiomyopathy, then consider CABG 4. Hypertension. 5. Hyperlipidemia (2) CHF (congestive heart failure), NYHA class IV Qualifiers: Congestive heart failure type: combined Congestive heart failure chronicity: acute on chronic Qualified Code(s): I50.43 - Acute on chronic combined systolic (congestive) and diastolic (congestive) heart failure
--- NOTE | 2018-05-26 16:59 | P.PNNP ---
Subjective Interval history: Sitting up in bed. Creatinine has improved at 1.9 today, edema improving. Denies any shortness of breath, chest pain , nausea, or vomiting. <Mona Chavez - Last Filed: 05/26/18 16:55> Physical Exam Vital signs: Vital Signs 05/25/18 17:00 05/25/18 18:00 05/25/18 19:00 Temperature 98.4 F Pulse Rate 88 88 88 Respiratory Rate 16 Blood Pressure 174/78 H Pulse Oximetry 96 05/25/18 19:35 05/25/18 20:00 05/25/18 21:00 Temperature Pulse Rate 75 88 86 Respiratory Rate 18 Blood Pressure Pulse Oximetry 96 05/25/18 22:00 05/25/18 23:00 05/26/18 00:00 Temperature 97.9 F Pulse Rate 86 81 80 Respiratory Rate 18 Blood Pressure 154/55 H Pulse Oximetry 99 05/26/18 01:00 05/26/18 02:00 05/26/18 02:41 Temperature Pulse Rate 80 70 76 Respiratory Rate 18 Blood Pressure Pulse Oximetry 05/26/18 03:00 05/26/18 04:00 05/26/18 05:00 Temperature 97.2 F L Pulse Rate 74 74 78 Respiratory Rate 16 Blood Pressure 153/75 H Pulse Oximetry 100 05/26/18 06:00 05/26/18 07:00 05/26/18 08:00 Temperature Pulse Rate 78 81 80 Respiratory Rate 20 Blood Pressure 137/91 H Pulse Oximetry 100 100 05/26/18 08:02 05/26/18 08:04 05/26/18 09:00 Temperature Pulse Rate 81 82 Respiratory Rate 18 Blood Pressure Pulse Oximetry 96 05/26/18 10:00 05/26/18 11:00 05/26/18 11:34 Temperature 98.3 F Pulse Rate 76 80 79 Respiratory Rate 20 18 Blood Pressure 131/81 Pulse Oximetry 96 05/26/18 12:00 05/26/18 13:00 Temperature Pulse Rate 86 84 Respiratory Rate Blood Pressure Pulse Oximetry Intake & Output 05/25/18 05/26/18 05/26/18 18:59 06:59 18:59 Intake Total 960 / 960 Output Total 1999 950 / 950 Balance -1040 / -1040 -950 / -950 Weight 107 kg Intake: Oral 960 / 960 Output: Urine 950 / 950 Urine Amount (Catheter) 1999 Indwelling Urethral Catheter 1999 Other: Date of Last Bowel Movement 05/25/18 05/25/18 Narrative: GENERAL: Alert and oriented. SKIN: Warm and dry. NECK: Supple, trachea midline. CARDIOVASCULAR: Regular rate and rhythm without murmurs, gallops, or rubs. RESPIRATORY: Breath sounds equal bilaterally. No accessory muscle use. GASTROINTESTINAL: Abdomen distended, non-tender to palpation. GENITOURINARY: Indwelling Chung catheter. Scrotal edema slightly improved from yesterday. MUSCULOSKELETAL: No cyanosis, 1+ pitting edema BACK: Nontender without obvious deformity. No CVA tenderness. - Urinary Catheter Management Indwelling Urethral Catheter Cath placed during this visit: yes Reason for continuing: Hourly intake/output Insertion date: 05/22/18 Insertion time: 12:37 <Mona Chavez - Last Filed: 05/26/18 16:55> Vital signs: Vital Signs 05/25/18 23:00 05/26/18 00:00 05/26/18 01:00 Temperature 97.9 F Pulse Rate 81 80 80 Respiratory Rate 18 Blood Pressure 154/55 H Pulse Oximetry 99 05/26/18 02:00 05/26/18 02:41 05/26/18 03:00 Temperature 97.2 F L Pulse Rate 70 76 74 Respiratory Rate 18 16 Blood Pressure 153/75 H Pulse Oximetry 100 05/26/18 04:00 05/26/18 05:00 05/26/18 06:00 Temperature Pulse Rate 74 78 78 Respiratory Rate Blood Pressure Pulse Oximetry 05/26/18 07:00 05/26/18 08:00 05/26/18 08:02 Temperature Pulse Rate 81 80 81 Respiratory Rate 20 18 Blood Pressure 137/91 H Pulse Oximetry 100 100 05/26/18 08:04 05/26/18 09:00 05/26/18 10:00 Temperature Pulse Rate 82 76 Respiratory Rate Blood Pressure Pulse Oximetry 96 05/26/18 11:00 05/26/18 11:34 05/26/18 12:00 Temperature 98.3 F Pulse Rate 80 79 86 Respiratory Rate 20 18 Blood Pressure 131/81 Pulse Oximetry 96 05/26/18 13:00 05/26/18 16:00 05/26/18 17:00 Temperature 98.2 F Pulse Rate 84 80 86 Respiratory Rate 20 Blood Pressure 159/84 H Pulse Oximetry 98 05/26/18 18:00 05/26/18 19:00 05/26/18 20:00 Temperature 98.6 F Pulse Rate 104 H 86 90 Respiratory Rate 18 Blood Pressure 158/76 H Pulse Oximetry 99 05/26/18 20:55 05/26/18 20:57 05/26/18 21:00 Temperature Pulse Rate 104 H 86 Respiratory Rate 20 Blood Pressure Pulse Oximetry 96 05/26/18 22:00 Temperature Pulse Rate 86 Respiratory Rate Blood Pressure Pulse Oximetry Intake & Output 05/26/18 05/26/18 05/27/18 06:59 18:59 06:59 Intake Total 720 / 720 Output Total 950 / 950 1949 Balance -950 / -950 -1230 / -1230 Weight 107 kg Intake: Oral 720 / 720 Output: Urine 950 / 950 Urine Amount (Catheter) 1949 Indwelling Urethral Catheter 1949 Other: Date of Last Bowel Movement 05/25/18 - Urinary Catheter Management Indwelling Urethral Catheter Cath placed during this visit: no <aKrlos Armenta - Last Filed: 05/26/18 22:56> Assessment and Plan - Assessment (1) Acute kidney injury superimposed on chronic kidney disease Code(s): N17.9 - Acute kidney failure, unspecified; N18.9 - Chronic kidney disease, unspecified Status: Acute Plan: Patient with chronic kidney disease and develop ALISHA. Has Congestive heart disease and low EF. Avoid nephrotoxins Continue Lasix tolerating well with creatinine at 1.9 from 2.1/ try to keep in negative fluid balance. Follow the urine out put and BMP. (2) Hyperlipidemia Code(s): E78.5 - Hyperlipidemia, unspecified Status: Acute Qualifiers: Hyperlipidemia type: unspecified Qualified Code(s): E78.5 - Hyperlipidemia , unspecified Plan: On atorvastatin (3) Edema Code(s): R60.9 - Edema, unspecified Status: Acute Plan: Continue lasix maintain strict I+O Daily weights Low sodium diet. (4) DM2 (diabetes mellitus, type 2) Code(s): E11.9 - Type 2 diabetes mellitus without complications Status: Acute Qualifiers: Diabetes mellitus snf insulin use: with snf use Diabetes mellitus complication status: with circulatory complication Diabetes mellitus complication detail: with other circulatory complications Qualified Code(s): E11.59 - Type 2 diabetes mellitus with other circulatory complications; Z79.4 - halfway (current) use of insulin Plan: Maintain blood sugars between 140 mg/dl to 180 mg/dl while hospitalized. Elevated at times. (5) CHF (congestive heart failure), NYHA class IV Code(s): I50.9 - Heart failure, unspecified Status: Acute Qualifiers: Congestive heart failure type: combined Congestive heart failure chronicity : acute on chronic Qualified Code(s): I50.43 - Acute on chronic combined systolic (congestive) and diastolic (congestive) heart failure Plan: On lasix, patient reports that edema is improving. (6) Elevated troponin Code(s): R74.8 - Abnormal levels of other serum enzymes Status: Acute Plan: Cardiology following <Mona Chavez - Last Filed: 05/26/18 16:55> - Assessment (1) Acute kidney injury superimposed on chronic kidney disease Code(s): N17.9 - Acute kidney failure, unspecified; N18.9 - Chronic kidney disease, unspecified Status: Acute Plan: Patient seen and examined, agree with above. Continue diuretics, Creatinine is slightly better, now 1.9. Keep in negative fluid balance. 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 use: with snf use Diabetes mellitus complication status: with circulatory complication Diabetes mellitus complication detail: with other circulatory complications Qualified Code(s): E11.59 - Type 2 diabetes mellitus with other circulatory complications; Z79.4 - rn long term care (current) use of insulin (5) CHF (congestive heart failure), NYHA class IV Code(s): I50.9 - Heart failure, unspecified Status: Acute Qualifiers: Congestive heart failure type: combined Congestive heart failure chronicity : acute on chronic Qualified Code(s): I50.43 - Acute on chronic combined systolic (congestive) and diastolic (congestive) heart failure (6) Elevated troponin Code(s): R74.8 - Abnormal levels of other serum enzymes Status: Acute <Karlos Armenta - Last Filed: 05/26/18 22:56>
--- NOTE | 2018-05-26 18:20 | P.PNPL ---
Subjective Interval history: 63 YOWM with CAD,CMP,COPD , restrictive lung disease Breathing better Perfusion scan showes fixed defect and EF 32% C/O Nasal congestion Physical Exam Vital signs: Vital Signs 05/25/18 19:00 05/25/18 19:35 05/25/18 20:00 Temperature 98.4 F Pulse Rate 88 75 88 Respiratory Rate 16 18 Blood Pressure 174/78 H Pulse Oximetry 96 96 05/25/18 21:00 05/25/18 22:00 05/25/18 23:00 Temperature 97.9 F Pulse Rate 86 86 81 Respiratory Rate 18 Blood Pressure 154/55 H Pulse Oximetry 99 05/26/18 00:00 05/26/18 01:00 05/26/18 02:00 Temperature Pulse Rate 80 80 70 Respiratory Rate Blood Pressure Pulse Oximetry 05/26/18 02:41 05/26/18 03:00 05/26/18 04:00 Temperature 97.2 F L Pulse Rate 76 74 74 Respiratory Rate 18 16 Blood Pressure 153/75 H Pulse Oximetry 100 05/26/18 05:00 05/26/18 06:00 05/26/18 07:00 Temperature Pulse Rate 78 78 81 Respiratory Rate 20 Blood Pressure 137/91 H Pulse Oximetry 100 05/26/18 08:00 05/26/18 08:02 05/26/18 08:04 Temperature Pulse Rate 80 81 Respiratory Rate 18 Blood Pressure Pulse Oximetry 100 96 05/26/18 09:00 05/26/18 10:00 05/26/18 11:00 Temperature 98.3 F Pulse Rate 82 76 80 Respiratory Rate 20 Blood Pressure 131/81 Pulse Oximetry 96 05/26/18 11:34 05/26/18 12:00 05/26/18 13:00 Temperature Pulse Rate 79 86 84 Respiratory Rate 18 Blood Pressure Pulse Oximetry 05/26/18 16:00 05/26/18 17:00 Temperature 98.2 F Pulse Rate 80 86 Respiratory Rate 20 Blood Pressure 159/84 H Pulse Oximetry 98 Intake & Output 05/25/18 05/26/18 05/26/18 18:59 06:59 18:59 Intake Total 960 / 960 Output Total 1999 950 / 950 Balance -1040 / -1040 -950 / -950 Weight 107 kg Intake: Oral 960 / 960 Output: Urine 950 / 950 Urine Amount (Catheter) 1999 Indwelling Urethral Catheter 1999 Other: Date of Last Bowel Movement 05/25/18 05/25/18 GENERAL: WBWN NAD SKIN: Warm and dry. HEAD: Normocephalic. EYES: No scleral icterus. No injection or drainage. NECK: Supple, trachea midline. No JVD or lymphadenopathy. CARDIOVASCULAR: Regular rate and rhythm without murmurs, gallops, or rubs. RESPIRATORY: Breath sounds equal bilaterally. No accessory muscle use. GASTROINTESTINAL: Abdomen soft, non-tender, nondistended. MUSCULOSKELETAL: No cyanosis, or edema. BACK: Nontender without obvious deformity. No CVA tenderness. - Urinary Catheter Management Indwelling Urethral Catheter Cath placed during this visit: yes Reason for continuing: Hourly intake/output Insertion date: 05/22/18 Insertion time: 12:37 Assessment and Plan - Plan IMPRESSION: 1. Severe pulmonary disease. He has obstructive lung disease as well as restrictive lung disease. His FEV1 is 0.81. 2. Severe cardiomyopathy with an ejection fraction of 32%. 3. Multivessel coronary artery disease. 4. Diabetes mellitus. 5. Neuropathy. 6. Obesity. 7. Renal insufficiency. PLAN: Supplement 02 Aerosol nebs Diurease Monitor Renal functions Symbicort 2 puffs bid Plavix 75 mg daily Flonase NS
[2018-05-27] MEDS: Insulin NovoLOG Aspart Correctional Sugar Inj SQ SCH ×5 (03:38→20:58)
[2018-05-27 07:05] LABS: Calcium 8.5 mg/dL (8.5-10.1); Carbon Dioxide 33.2 meq/L (21.0-32.0); Potassium 4.8 meq/L (3.5-5.1)
[2018-05-27] MEDS: Budesonide-Formoterol 160/4.5 MCG 6 GM Inhaler INH SCH ×2 (08:06→20:59)
[2018-05-27] MEDS: Enoxaparin Inj 30 MG/0.3 ML Syringe SQ SCH (08:07)
[2018-05-27] MEDS: Senna/Docusate Sodium 8.6/50 MG Tablet PO SCH ×2 (08:08→20:59)
[2018-05-27] MEDS: Lisinopril 5 MG Tablet PO SCH (08:08)
[2018-05-27] MEDS: Furosemide 40 MG Tablet PO SCH (08:08)
[2018-05-27] MEDS: Carvedilol 12.5 MG Tablet PO SCH ×2 (08:08→21:01)
[2018-05-27] MEDS: Insulin Detemir Inj 1,000 UNIT/10 ML Vial SQ SCH ×2 (08:09→20:58)
[2018-05-27] MEDS: Famotidine 20 MG Tablet PO SCH ×2 (08:09→20:59)
[2018-05-27] MEDS: Pregabalin 75 MG Capsule PO SCH ×2 (08:09→21:02)
--- NOTE | 2018-05-27 10:34 | P.PNFP ---
Addendum entered and electronically signed by Marlee Boothe MD, R2 15:56: Problem list addition: scrotal edema. Requiring rolon for urination. Con't diuresis and monitoring of I/O's. May need rolon bag on discharge, along w/ education and home health nursing. Original Note: Subjective Interval history: Patient in procedure for viability scan this AM, seen later this afternoon. Spoke w/CV surgery over the phone. Based on viability results (still pending), may have CABG next week. Does not need to be inpatient before then. Continuing to diurese more than 2 Liters (for the past 2 days) on 40 mg Lasix daily. Feeling ok. Wants to stay until next week for possible CABG. 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 Has a Rolon in and continues to have scrotal enlargement that is tender and obstructs urination. Denies chest pain or SOB. <Marlee Rhodes - 05/27/18 15:39> Results - Labs Result diagrams: 05/25/18 05:43 05/28/18 04:26 <Jose Monroe - 05/28/18 10:47> Abnormal lab results 05/27/18 05/27/18 05/27/18 Range/Units 12:08 17:01 20:40 Carbon Dioxide (21.0-32.0) meq/L BUN (7-18) mg/dL Creatinine (0.60-1.30) mg/dL Estimated GFR (>89) mL/min POC Glucose 295 H 208 H 189 H (68-110) mg/dl Random Glucose (74-106) mg/dL Calcium (8.5-10.1) mg/dL 05/28/18 05/28/18 Range/Units 02:51 04:26 Carbon Dioxide 33.8 H (21.0-32.0) meq/L BUN 41 H (7-18) mg/dL Creatinine 1.87 H (0.60-1.30) mg/dL Estimated GFR 37 L (>89) mL/min POC Glucose 138 H (68-110) mg/dl Random Glucose 122 H (74-106) mg/dL Calcium 8.1 L (8.5-10.1) mg/dL BMP 05/28/18 04:26 Sodium 141 Potassium 4.4 Chloride 102 Carbon Dioxide 33.8 H BUN 41 H Creatinine 1.87 H Calcium 8.1 L <Jose Monroe - 05/28/18 10:47> Abnormal lab results 05/26/18 05/26/18 05/27/18 Range/Units 11:57 20:47 03:31 Carbon Dioxide (21.0-32.0) meq/L Anion Gap (5-15) meq/L BUN (7-18) mg/dL Creatinine (0.60-1.30) mg/dL Estimated GFR (>89) mL/min POC Glucose 209 H 154 H 189 H (68-110) mg/dl Random Glucose (74-106) mg/dL 05/27/18 05/27/18 Range/Units 06:10 07:47 Carbon Dioxide 33.2 H (21.0-32.0) meq/L Anion Gap 4 L (5-15) meq/L BUN 42 H (7-18) mg/dL Creatinine 1.97 H (0.60-1.30) mg/dL Estimated GFR 35 L (>89) mL/min POC Glucose 228 H (68-110) mg/dl Random Glucose 209 H (74-106) mg/dL [facility] 05/27/18 06:10 Sodium 140 Potassium 4.8 Chloride 103 Carbon Dioxide 33.2 H BUN 42 H Creatinine 1.97 H Calcium 8.5 <Marlee Rhodes - 05/27/18 10:34> - Imaging Impressions Myocardial Perfusion Scan Nuc [facility] 05/26/18 00:00 CONCLUSION: 1. Significantly diminished perfusion involving the LAD and RCA territories has the appearance of myocardial infarction. The only part of the myocardium that appears viable is anterolateral wall. <Jose Monroe - 05/28/18 10:47> Physical Exam Vital signs: Vital Signs 05/27/18 12:00 05/27/18 12:53 05/27/18 13:00 Temperature 97.7 F Pulse Rate 77 80 78 Respiratory Rate 20 16 Blood Pressure 146/70 H Pulse Oximetry 99 05/27/18 14:00 05/27/18 15:00 05/27/18 15:24 Temperature 98.5 F Pulse Rate 78 83 80 Respiratory Rate 20 16 Blood Pressure 142/70 H Pulse Oximetry 96 05/27/18 16:00 12/20/18 17:00 05/27/18 18:00 Temperature Pulse Rate 84 80 80 Respiratory Rate Blood Pressure Pulse Oximetry 05/27/18 19:00 05/27/18 20:00 05/27/18 21:00 Temperature 98.9 F Pulse Rate 78 82 80 Respiratory Rate 18 Blood Pressure 147/74 H Pulse Oximetry 99 99 05/27/18 22:00 05/27/18 23:00 05/28/18 00:00 Temperature 98.3 F Pulse Rate 80 78 74 Respiratory Rate 16 Blood Pressure 143/71 H Pulse Oximetry 99 05/28/18 01:00 05/28/18 02:00 05/28/18 02:57 Temperature Pulse Rate 74 72 76 Respiratory Rate 18 Blood Pressure 141/73 H Pulse Oximetry 97 05/28/18 03:00 05/28/18 04:00 05/28/18 05:00 Temperature Pulse Rate 74 81 76 Respiratory Rate 18 Blood Pressure Pulse Oximetry 05/28/18 06:00 05/28/18 07:00 05/28/18 08:00 Temperature 98 F Pulse Rate 70 73 74 Respiratory Rate 18 Blood Pressure 140/71 Pulse Oximetry 99 97 05/28/18 08:41 Temperature Pulse Rate Respiratory Rate Blood Pressure Pulse Oximetry 93 L Intake & Output 05/27/18 05/28/18 05/28/18 18:59 06:59 18:59 Intake Total 480 / 480 580 / 580 Output Total 650 / 650 1075 / 1075 Balance -170 / -170 -495 / -495 Weight 105.5 kg Intake: Oral 480 / 480 580 / 580 Output: Urine Amount (Catheter) 650 / 650 1075 / 1075 Indwelling Urethral Catheter 650 / 650 1075 / 1075 Other: Date of Last Bowel Movement 05/25/18 05/25/18 05/25/18 <Jose Monroe - 05/28/18 10:47> Vital Signs 05/26/18 11:00 05/26/18 11:34 05/26/18 12:00 Temperature 98.3 F Pulse Rate 80 79 86 Respiratory Rate 20 18 Blood Pressure 131/81 Pulse Oximetry 96 05/26/18 13:00 05/26/18 16:00 05/26/18 17:00 Temperature 98.2 F Pulse Rate 84 80 86 Respiratory Rate 20 Blood Pressure 159/84 H Pulse Oximetry 98 05/26/18 18:00 05/26/18 19:00 05/26/18 20:00 Temperature 98.6 F Pulse Rate 104 H 86 90 Respiratory Rate 18 Blood Pressure 158/76 H Pulse Oximetry 99 05/26/18 20:55 05/26/18 20:57 05/26/18 21:00 Temperature Pulse Rate 104 H 86 Respiratory Rate 20 Blood Pressure Pulse Oximetry 96 05/26/18 22:00 05/26/18 23:00 05/27/18 00:00 Temperature 97.7 F Pulse Rate 86 83 82 Respiratory Rate 18 Blood Pressure 123/86 Pulse Oximetry 98 05/27/18 00:54 05/27/18 01:00 05/27/18 02:00 Temperature Pulse Rate 92 H 80 80 Respiratory Rate 20 Blood Pressure Pulse Oximetry 98 05/27/18 03:00 05/27/18 04:00 05/27/18 04:06 Temperature 98.1 F Pulse Rate 81 78 90 Respiratory Rate 16 18 Blood Pressure 144/76 H Pulse Oximetry 98 05/27/18 05:00 05/27/18 06:00 05/27/18 07:00 Temperature Pulse Rate 78 82 75 Respiratory Rate 20 Blood Pressure 129/78 Pulse Oximetry 96 05/27/18 08:00 Temperature Pulse Rate Respiratory Rate Blood Pressure Pulse Oximetry 96 Intake & Output 05/26/18 05/27/18 05/27/18 18:59 06:59 18:59 Intake Total 720 / 720 Output Total 1949 850 / 850 Balance -1230 / -1230 -850 / -850 Weight 107.3 kg Intake: Oral 720 / 720 Output: Urine Amount (Catheter) 1949 850 / 850 Indwelling Urethral Catheter 1949 850 / 850 Other: Date of Last Bowel Movement 05/25/18 05/25/18 <AbiMarlee Frederick N - 05/27/18 10:34> Narrative: Unable to exam <AbiMarlee Frederick N - 05/27/18 11:07> - Urinary Catheter Management Indwelling Urethral Catheter Cath placed during this visit: no <Jose Monroe - 05/28/18 10:47> yes <Marlee Rhodes N - 05/27/18 15:39> Reason for continuing: Hourly intake/output <Abid Marlee Boothe N - 05/27/18 10:34 > Insertion date: 05/22/18 <Abid R2,Marlee N - 05/27/18 10:34> Insertion time: 12:37 <Abid R2,Marlee N - 05/27/18 10:34> Assessment and Plan - Assessment (1) CHF (congestive heart failure), NYHA class IV Code(s): I50.9 - Heart failure, unspecified Status: Acute (2) COPD (chronic obstructive pulmonary disease) Code(s): J44.9 - Chronic obstructive pulmonary disease, unspecified Status: Acute (3) Ischemic cardiomyopathy Code(s): I25.5 - Ischemic cardiomyopathy Status: Acute (4) CAD (coronary artery disease) Code(s): I25.10 - Atherosclerotic heart disease of [place] coronary artery without angina pectoris Status: Acute (5) DM2 (diabetes mellitus, type 2) Code(s): E11.9 - Type 2 diabetes mellitus without complications Status: Acute (6) HTN (hypertension) Code(s): I10 - Essential (primary) hypertension Status: Acute (7) Chronic kidney disease Code(s): N18.9 - Chronic kidney disease, unspecified Status: Acute (8) Nutrition, metabolism, and development symptoms Code(s): R63.8 - Other symptoms and signs concerning food and fluid intake Status: Acute <Jose Monroe - 05/28/18 10:47> (1) CHF (congestive heart failure), NYHA class IV Code(s): I50.9 - Heart failure, unspecified Status: Acute Plan: -Clinically mproved, continuing to diurese significant amounts (2.8 L since yesterday) -Continue Lasix 40 mg PO Daily -Con't to monitor I's and O's strictly with daily weights * Patient has an indwelling ureteral catheter 05/22 due to scrotal edema -Fluid restriction 1.5 L -Salt restriction 2 g Nuclear viability scan performed today Following cardiology and CV surgery recommendations, patient may require CABG Spoke w/cardiology today, cleared from cardiology perspective. Plan to have him f/u w/Dr. Caraballo outpatient Related consults: cardiology nephrology CV surgery (2) COPD (chronic obstructive pulmonary disease) Code(s): J44.9 - Chronic obstructive pulmonary disease, unspecified Status: Acute Plan: Patients personal display coordinator Dr. Carlson on board. Satting 96% 3 L nasal cannula. Continue Symbicort Continue Atrovent BID Albuterol PRN O2 as needed Incentive spirometry No longer on BIPAP at night (3) Ischemic cardiomyopathy Code(s): I25.5 - Ischemic cardiomyopathy Status: Acute Plan: -EF 50%, FEV1 0.8. Poor surgical candidate. -Continue carvedilol and JEREMY inhibitor (4) CAD (coronary artery disease) Code(s): I25.10 - Atherosclerotic heart disease of [place] coronary artery without angina pectoris Status: Acute Plan: -Patient with history of previous DE -Continue aspirin and Plavix -Continue atorvastatin 80 mg p.o. HS (5) DM2 (diabetes mellitus, type 2) Code(s): E11.9 - Type 2 diabetes mellitus without complications Status: Acute Plan: Improved control - Levemir 45 units BID - High dose SSI Con't to adjust based on requirements over the course of the day (6) HTN (hypertension) Code(s): I10 - Essential (primary) hypertension Status: Acute Plan: -Continue with carvedilol 12.5 mg twice daily -Continue Lisinopril 2.5 mg daily (7) Chronic kidney disease Code(s): N18.9 - Chronic kidney disease, unspecified Status: Acute Plan: Creatinine: stable around 1.9 GFR 36 Will require outpatient monitoring (8) Nutrition, metabolism, and development symptoms Code(s): R63.8 - Other symptoms and signs concerning food and fluid intake Status: Acute Plan: Fluids: Oral fluids only, restrict to 1.5 L due to CHF Electrolytes: Monitor and replete as needed Nutrition: Cardiac and diabetic diet. Salt restricted 2g daily. <Marlee Rhodes N - 05/27/18 15:30> - Assessment and Plan 63-year-old male presented with acute on chronic CHF exacerbation. Elevated BNP with bilateral 2+ pitting edema, distended abdomen, crackles bilaterally throughout all lung watkins. Patient was started on 40 IV Lasix twice daily and improved. Cardiology consulted due to ejection fraction of less than 20% and plan to perform nuclear viability study to determine if he needs a CABG. Patient also has diabetes, on Levemir 20 units twice daily, high dose sliding scale. ACS rule out was negative. <Abid Marlee Boothe N - 05/27/18 10:34> Discharge Planning: Assistance w/DC planning requested. Will require home w/home health per PT recs. Will need home nursing as well. <Marlee Rhodes - 05/27/18 15:39> - Attending Attestation Patient case discussed with resident physicians I have independently examined the patient I have read the above note and agree with the assessment and plan as discussed with me I was involved in all medical decision making for this patient Jose Monroe MD <Jose Monroe - 05/28/18 10:47> <Marlee Rhodes - Last Filed: 05/27/18 15:30> (1) CHF (congestive heart failure), NYHA class IV Qualifiers: Congestive heart failure type: combined Congestive heart failure chronicity: acute on chronic Qualified Code(s): I50.43 - Acute on chronic combined systolic (congestive) and diastolic (congestive) heart failure (5) DM2 (diabetes mellitus, type 2) Qualifiers: Diabetes mellitus intermediate insulin use: with long wall mining machine helper use Diabetes mellitus complication status: with circulatory complication Diabetes mellitus complication detail: with other circulatory complications Qualified Code(s): E11.59 - Type 2 diabetes mellitus with other circulatory complications; Z79.4 - bed bug exterminator (current) use of insulin (6) HTN (hypertension) Qualifiers: Hypertension type: essential hypertension Qualified Code(s): I10 - Essential (primary) hypertension (7) Chronic kidney disease Qualifiers: Chronic kidney disease stage: unspecified stage Qualified Code(s): N18.9 - Chronic kidney disease, unspecified <Jose Monroe - Last Filed: 05/28/18 10:47> (1) CHF (congestive heart failure), NYHA class IV Qualifiers: Congestive heart failure type: combined Congestive heart failure chronicity: acute on chronic Qualified Code(s): I50.43 - Acute on chronic combined systolic (congestive) and diastolic (congestive) heart failure (5) DM2 (diabetes mellitus, type 2) Qualifiers: Diabetes mellitus intermediate insulin use: with long wall mining machine helper use Diabetes mellitus complication status: with circulatory complication Diabetes mellitus complication detail: with other circulatory complications Qualified Code(s): E11.59 - Type 2 diabetes mellitus with other circulatory complications; Z79.4 - bed bug exterminator (current) use of insulin (6) HTN (hypertension) Qualifiers: Hypertension type: essential hypertension Qualified Code(s): I10 - Essential (primary) hypertension (7) Chronic kidney disease Qualifiers: Chronic kidney disease stage: unspecified stage Qualified Code(s): N18.9 - Chronic kidney disease, unspecified <Marlee Rhodes N - Last Filed: 05/27/18 15:30> (1) CHF (congestive heart failure), NYHA class IV Qualifiers: Congestive heart failure type: combined Congestive heart failure chronicity: acute on chronic Qualified Code(s): I50.43 - Acute on chronic combined systolic (congestive) and diastolic (congestive) heart failure (5) DM2 (diabetes mellitus, type 2) Qualifiers: Diabetes mellitus intermediate insulin use: with intermediate use Diabetes mellitus complication status: with circulatory complication Diabetes mellitus complication detail: with other circulatory complications Qualified Code(s): E11.59 - Type 2 diabetes mellitus with other circulatory complications; Z79.4 - bed bug exterminator (current) use of insulin (6) HTN (hypertension) Qualifiers: Hypertension type: essential hypertension Qualified Code(s): I10 - Essential (primary) hypertension (7) Chronic kidney disease Qualifiers: Chronic kidney disease stage: unspecified stage Qualified Code(s): N18.9 - Chronic kidney disease, unspecified <Jose Monroe - Last Filed: 05/28/18 10:47> (1) CHF (congestive heart failure), NYHA class IV Qualifiers: Congestive heart failure type: combined Congestive heart failure chronicity: acute on chronic Qualified Code(s): I50.43 - Acute on chronic combined systolic (congestive) and diastolic (congestive) heart failure (5) DM2 (diabetes mellitus, type 2) Qualifiers: Diabetes mellitus long wall mining machine helper insulin use: with long wall mining machine helper use Diabetes mellitus complication status: with circulatory complication Diabetes mellitus complication detail: with other circulatory complications Qualified Code(s): E11.59 - Type 2 diabetes mellitus with other circulatory complications; Z79.4 - longterm (current) use of insulin (6) HTN (hypertension) Qualifiers: Hypertension type: essential hypertension Qualified Code(s): I10 - Essential (primary) hypertension (7) Chronic kidney disease Qualifiers: Chronic kidney disease stage: unspecified stage Qualified Code(s): N18.9 - Chronic kidney disease, unspecified
--- NOTE | 2018-05-27 12:30 | NM ---
EXAM DATE: 05/27/2018 12:10 PM EST AGE/SEX: 63 years / Male INDICATIONS: Congestive heart failure. Coronary artery disease Cardiomyopathy. CLINICAL DATA: This is the patient's initial encounter. Patient reports that signs and symptoms have been present for 1 day and indicates a pain score of 1/10. MEDICAL/SURGICAL HISTORY: Diabetes mellitus type II. Chronic obstructive pulmonary disease. R enal failure, acute. None. COMPARISON: [facility] – [place], [place] MYOCARDIAL PERF PHARM SPECT W/EF, 05/24/2018. . DOSE: 4 mCi 201 Thallium 1 mCi Thallium 201 at 24 hrs TECHNIQUE: Resting injection SPECT was performed. FINDINGS: Myocardial resting viability exam was performed. The area of maximum perfusion is to the anterolatera l wall. There is absent perfusion to the posterior basal, inferoapical wall in addition to low anteri or wall and anteroapical wall which demonstrate no evidence for reperfusion on the 24-hour reinjectio n study. RISK CATEGORY: Intermediate (1-3 % Annual Mortality Rate) CONCLUSION: 1. Significantly diminished perfusion involving the LAD and RCA territories has the appearance of my ocardial infarction. The only part of the myocardium that appears viable is anterolateral wall. Electronically signed by: Thea Pathak MD Board Certified Radiologist 05/27/2018 12:29 PM EST
--- NOTE | 2018-05-27 17:01 | P.PNCV ---
- Note Subjective/Hospital Course: 63-year-old gentleman with known multivessel disease and ejection fraction of less than 20%, who has had multiple admissions for congestive heart failure and a cardiac catheterization fairly recently showing severe multivessel disease. Was deemed not a candidate for surgery2/2 high-risk for surgical intervention based on his poor LV function and severe COPD with an FEV1 of 0.8 liters. He has been put on BiPAP and given diuresis and is already feeling notably better, we were reconsulted for re-evaluation for candidacy for surgery. PAST MEDICAL HISTORY: . Ischemic cardiomyopathy, ejection fraction less than 20%, Chronic systolic congestive heart failure, Severe multivessel coronary disease, Hypertension, Hyperlipidemia. 05/27 viability test noted : viability in anterolateral wall / EF 30 % recommend maximizing medical therapy for now for Heart Failure/ Meds/ compliance pt can be dc to inpt SNF from our standpoint for continued monitoring and compliance if unable to place in SNF, then will eval for surgery nest / thursday , will need to be off plavix for 3-5 days Objective: Vital Signs - 24 hr 05/26/18 17:00 05/26/18 18:00 05/26/18 19:00 Temperature 98.6 F Pulse Rate 86 104 H 86 Respiratory Rate 18 Blood Pressure 158/76 H Pulse Oximetry 99 05/26/18 20:00 05/26/18 20:55 05/26/18 20:57 Temperature Pulse Rate 90 104 H Respiratory Rate 20 Blood Pressure Pulse Oximetry 96 05/26/18 21:00 05/26/18 22:00 05/26/18 23:00 Temperature 97.7 F Pulse Rate 86 86 83 Respiratory Rate 18 Blood Pressure 123/86 Pulse Oximetry 98 05/27/18 00:00 05/27/18 00:54 05/27/18 01:00 Temperature Pulse Rate 82 92 H 80 Respiratory Rate 20 Blood Pressure Pulse Oximetry 98 05/27/18 02:00 05/27/18 03:00 05/27/18 04:00 Temperature 98.1 F Pulse Rate 80 81 78 Respiratory Rate 16 Blood Pressure 144/76 H Pulse Oximetry 98 05/27/18 04:06 05/27/18 05:00 05/27/18 06:00 Temperature Pulse Rate 90 78 82 Respiratory Rate 18 Blood Pressure Pulse Oximetry 05/27/18 07:00 05/27/18 08:00 05/27/18 09:00 Temperature Pulse Rate 75 76 86 Respiratory Rate 20 Blood Pressure 129/78 Pulse Oximetry 96 96 05/27/18 10:00 05/27/18 12:00 05/27/18 12:53 Temperature 97.7 F Pulse Rate 76 77 80 Respiratory Rate 20 16 Blood Pressure 146/70 H Pulse Oximetry 99 05/27/18 13:00 05/27/18 14:00 05/27/18 15:00 Temperature 98.5 F Pulse Rate 78 78 83 Respiratory Rate 20 Blood Pressure 142/70 H Pulse Oximetry 96 05/27/18 15:24 Temperature Pulse Rate 80 Respiratory Rate 16 Blood Pressure Pulse Oximetry GENERAL: A&O x 3 SKIN: Warm and dry./ HEAD: Normocephalic. EYES: No scleral icterus. No injection or drainage. NECK: Supple, trachea midline. No JVD or lymphadenopathy. CARDIOVASCULAR: Regular rate and rhythm without murmurs, gallops, or rubs. + 2-3 edema lower ext RESPIRATORY: Breath sounds equal bilaterally. No accessory muscle use. few crackles in bases GASTROINTESTINAL: Abdomen soft, non-tender, nondistended. MUSCULOSKELETAL: No cyanosis, or edema. BACK: Nontender without obvious deformity. No CVA tenderness. : scrotal edema Labs: Laboratory Results - last 12 hr 05/27/18 05/27/18 05/27/18 06:10 07:47 12:08 Sodium 140 Potassium 4.8 Chloride 103 Carbon Dioxide 33.2 H Anion Gap 4 L BUN 42 H Creatinine 1.97 H Estimated GFR 35 L POC Glucose 228 H 295 H Random Glucose 209 H Calcium 8.5 Result Diagrams: 05/25/18 05:43 05/27/18 06:10 - Plan (1) Hyperlipidemia (2) DM2 (diabetes mellitus, type 2) (3) HTN (hypertension) (4) CHF (congestive heart failure), NYHA class IV (5) Chronic kidney disease eval for SNF placement / then f/u with Dr Hernandez in office to eval timing for surgery if unable to get SNF placement / then eval for surgery next thursday (1) Hyperlipidemia Qualifiers: Hyperlipidemia type: unspecified Qualified Code(s): E78.5 - Hyperlipidemia, unspecified (2) DM2 (diabetes mellitus, type 2) Qualifiers: Diabetes mellitus keno terminal operator insulin use: with keno terminal operator use Diabetes mellitus complication status: with circulatory complication Diabetes mellitus complication detail: with other circulatory complications Qualified Code(s): E11.59 - Type 2 diabetes mellitus with other circulatory complications; Z79.4 - termite treater helper (current) use of insulin (3) HTN (hypertension) Qualifiers: Hypertension type: essential hypertension Qualified Code(s): I10 - Essential (primary) hypertension (4) CHF (congestive heart failure), NYHA class IV Qualifiers: Congestive heart failure type: combined Congestive heart failure chronicity: acute on chronic Qualified Code(s): I50.43 - Acute on chronic combined systolic (congestive) and diastolic (congestive) heart failure (5) Chronic kidney disease Qualifiers: Chronic kidney disease stage: unspecified stage Qualified Code(s): N18.9 - Chronic kidney disease, unspecified
--- NOTE | 2018-05-27 17:30 | P.PNPL ---
Subjective Interval history: 63 YOWM with CAD,CMP,COPD , restrictive lung disease Breathing better Perfusion scan showes fixed defect and EF 32% C/O Scrotal swelling diureasing with Lasix 80 mg q 8 hrs Physical Exam Vital signs: Vital Signs 05/26/18 18:00 05/26/18 19:00 05/26/18 20:00 Temperature 98.6 F Pulse Rate 104 H 86 90 Respiratory Rate 18 Blood Pressure 158/76 H Pulse Oximetry 99 05/26/18 20:55 05/26/18 20:57 05/26/18 21:00 Temperature Pulse Rate 104 H 86 Respiratory Rate 20 Blood Pressure Pulse Oximetry 96 05/26/18 22:00 05/26/18 23:00 05/27/18 00:00 Temperature 97.7 F Pulse Rate 86 83 82 Respiratory Rate 18 Blood Pressure 123/86 Pulse Oximetry 98 05/27/18 00:54 05/27/18 01:00 05/27/18 02:00 Temperature Pulse Rate 92 H 80 80 Respiratory Rate 20 Blood Pressure Pulse Oximetry 98 05/27/18 03:00 05/27/18 04:00 05/27/18 04:06 Temperature 98.1 F Pulse Rate 81 78 90 Respiratory Rate 16 18 Blood Pressure 144/76 H Pulse Oximetry 98 05/27/18 05:00 05/27/18 06:00 05/27/18 07:00 Temperature Pulse Rate 78 82 75 Respiratory Rate 20 Blood Pressure 129/78 Pulse Oximetry 96 05/27/18 08:00 05/27/18 09:00 05/27/18 10:00 Temperature Pulse Rate 76 86 76 Respiratory Rate Blood Pressure Pulse Oximetry 96 05/27/18 12:00 05/27/18 12:53 05/27/18 13:00 Temperature 97.7 F Pulse Rate 77 80 78 Respiratory Rate 20 16 Blood Pressure 146/70 H Pulse Oximetry 99 05/27/18 14:00 05/27/18 15:00 05/27/18 15:24 Temperature 98.5 F Pulse Rate 78 83 80 Respiratory Rate 20 16 Blood Pressure 142/70 H Pulse Oximetry 96 Intake & Output 05/26/18 05/27/18 05/27/18 18:59 06:59 18:59 Intake Total 720 / 720 Output Total 1950 / 1950 850 / 850 Balance -1230 / -1230 -850 / -850 Weight 107.3 kg Intake: Oral 720 / 720 Output: Urine Amount (Catheter) 1949 850 / 850 Indwelling Urethral Catheter 1949 850 / 850 Other: Date of Last Bowel Movement 05/25/18 05/25/18 GENERAL: WBWN NAD SKIN: Warm and dry. HEAD: Normocephalic. EYES: No scleral icterus. No injection or drainage. NECK: Supple, trachea midline. No JVD or lymphadenopathy. CARDIOVASCULAR: Regular rate and rhythm without murmurs, gallops, or rubs. RESPIRATORY: Breath sounds equal bilaterally. No accessory muscle use. GASTROINTESTINAL: Abdomen soft, non-tender, nondistended. MUSCULOSKELETAL: No cyanosis, or edema. Scrotal swelling BACK: Nontender without obvious deformity. No CVA tenderness. - Urinary Catheter Management Indwelling Urethral Catheter Cath placed during this visit: yes Reason for continuing: Hourly intake/output Insertion date: 05/22/18 Insertion time: 12:37 Assessment and Plan - Plan IMPRESSION: 1. Severe pulmonary disease. He has obstructive lung disease as well as restrictive lung disease. His FEV1 is 0.81. 2. Severe cardiomyopathy with an ejection fraction of 32%. 3. Multivessel coronary artery disease. 4. Diabetes mellitus. 5. Neuropathy. 6. Obesity. 7. Renal insufficiency. PLAN: Supplement 02 Aerosol nebs Diurease with Lasix 80 mg q 8 hrs, Monitor Renal functions Symbicort 2 puffs bid Plavix 75 mg daily Flonase NS
--- NOTE | 2018-05-27 20:55 | P.PNNP ---
Subjective Interval history: Patient seen in the afternoon, still has swelling of legs and scrotum. Physical Exam Vital signs: Vital Signs 05/26/18 20:55 05/26/18 20:57 05/26/18 21:00 Temperature Pulse Rate 104 H 86 Respiratory Rate 20 Blood Pressure Pulse Oximetry 96 05/26/18 22:00 05/26/18 23:00 05/27/18 00:00 Temperature 97.7 F Pulse Rate 86 83 82 Respiratory Rate 18 Blood Pressure 123/86 Pulse Oximetry 98 05/27/18 00:54 05/27/18 01:00 05/27/18 02:00 Temperature Pulse Rate 92 H 80 80 Respiratory Rate 20 Blood Pressure Pulse Oximetry 98 05/27/18 03:00 05/27/18 04:00 05/27/18 04:06 Temperature 98.1 F Pulse Rate 81 78 90 Respiratory Rate 16 18 Blood Pressure 144/76 H Pulse Oximetry 98 05/27/18 05:00 05/27/18 06:00 05/27/18 07:00 Temperature Pulse Rate 78 82 75 Respiratory Rate 20 Blood Pressure 129/78 Pulse Oximetry 96 05/27/18 08:00 05/27/18 09:00 05/27/18 10:00 Temperature Pulse Rate 76 86 76 Respiratory Rate Blood Pressure Pulse Oximetry 96 05/27/18 12:00 05/27/18 12:53 05/27/18 13:00 Temperature 97.7 F Pulse Rate 77 80 78 Respiratory Rate 20 16 Blood Pressure 146/70 H Pulse Oximetry 99 05/27/18 14:00 05/27/18 15:00 05/27/18 15:24 Temperature 98.5 F Pulse Rate 78 83 80 Respiratory Rate 20 16 Blood Pressure 142/70 H Pulse Oximetry 96 05/27/18 16:00 05/27/18 17:00 05/27/18 18:00 Temperature Pulse Rate 84 80 80 Respiratory Rate Blood Pressure Pulse Oximetry Intake & Output 05/27/18 05/27/18 05/28/18 06:59 18:59 06:59 Intake Total 480 / 480 Output Total 850 / 850 650 / 650 Balance -850 / -850 -170 / -170 Weight 107.3 kg Intake: Oral 480 / 480 Output: Urine Amount (Catheter) 850 / 850 650 / 650 Indwelling Urethral Catheter 850 / 850 650 / 650 Other: Date of Last Bowel Movement 05/25/18 Narrative: Unable to exam - Urinary Catheter Management Indwelling Urethral Catheter Cath placed during this visit: yes Reason for continuing: Hourly intake/output Insertion date: 05/22/18 Insertion time: 12:37 Assessment and Plan - Assessment (1) Acute kidney injury superimposed on chronic kidney disease Code(s): N17.9 - Acute kidney failure, unspecified; N18.9 - Chronic kidney disease, unspecified Status: Acute Plan: Patient with chronic kidney disease and anasarca. Continue diuretics, Creatinine is almost same, now 1.9. Keep in negative fluid balance. Will increase Lasix to 80 mg TID and add Metolazone. (2) Hyperlipidemia Code(s): E78.5 - Hyperlipidemia, unspecified Status: Acute Qualifiers: Hyperlipidemia type: unspecified Qualified Code(s): E78.5 - Hyperlipidemia , unspecified Plan: On atorvastatin (3) Edema Code(s): R60.9 - Edema, unspecified Status: Acute Plan: Continue lasix maintain strict I+O Daily weights Low sodium diet. (4) DM2 (diabetes mellitus, type 2) Code(s): E11.9 - Type 2 diabetes mellitus without complications Status: Acute Qualifiers: Diabetes mellitus termite helper insulin use: with termite helper use Diabetes mellitus complication status: with circulatory complication Diabetes mellitus complication detail: with other circulatory complications Qualified Code(s): E11.59 - Type 2 diabetes mellitus with other circulatory complications; Z79.4 - custodial (current) use of insulin Plan: Maintain blood sugars between 140 mg/dl to 180 mg/dl while hospitalized. Elevated at times. (5) CHF (congestive heart failure), NYHA class IV Code(s): I50.9 - Heart failure, unspecified Status: Acute Qualifiers: Congestive heart failure type: combined Congestive heart failure chronicity : acute on chronic Qualified Code(s): I50.43 - Acute on chronic combined systolic (congestive) and diastolic (congestive) heart failure Plan: On lasix, patient reports that edema is improving. (6) Elevated troponin Code(s): R74.8 - Abnormal levels of other serum enzymes Status: Acute Plan: Cardiology following
--- NOTE | 2018-05-27 23:07 | P.PNCA ---
Subjective Interval history: No events overnight Feeling better, edema better Medications and Allergies Active Medications: Active Medications Acetaminophen (Tylenol) 650 mg PO Q4H PRN PRN Reason: Temp > 100.4, Pain scale 1-2 Last Admin: 05/25/18 20:12 Dose: 650 mg Hydrocodone Bitart/Acetaminophen (Stambaugh 10/325) 1 tab PO Q6H PRN PRN Reason: Pain scale 3-10 Last Admin: 05/27/18 17:35 Dose: 1 tab Al Hydroxide/Mg Hydroxide (Milk Of Cheryl Likarla) 30 ml PO Q12H PRN PRN Reason: Mild Constipation Aspirin (Ecotrin) 81 mg PO DAILY [facility] Last Admin: 05/27/18 08:09 Dose: 81 mg Atorvastatin Calcium (Lipitor) 80 mg PO HS [facility] Last Admin: 05/27/18 20:59 Dose: 80 mg Benzonatate (Tessalon Perles) 100 mg PO Q8H PRN PRN Reason: COUGH Last Admin: 05/25/18 23:59 Dose: 100 mg Bisacodyl (Dulcolax Supp) 10 mg RECTAL DAILY PRN PRN Reason: SEVERE CONSITIPATION Budesonide/Formoterol Fumarate (Symbicort 160/4.5 Mcg Inh) 2 puff INH BID [facility] Last Admin: 05/27/18 20:59 Dose: 2 puff Carvedilol (Coreg) 12.5 mg PO BID [facility] Last Admin: 05/27/18 21:01 Dose: 12.5 mg Clopidogrel Bisulfate (Plavix) 75 mg PO DAILY [facility] Last Admin: 05/27/18 08:09 Dose: 75 mg Dextrose (D50w Vial) 50 ml IV.PUSH UNSCH PRN PRN Reason: PER HYPOGLYCEMIA PROTOCOL Enoxaparin Sodium (Lovenox Inj) 30 mg SQ DAILY [facility] Last Admin: 05/27/18 08:07 Dose: 30 mg Famotidine (Pepcid) 10 mg PO BID [facility] Last Admin: 05/27/18 20:59 Dose: 10 mg Fluticasone Propionate (Flonase Nasal Urich) 1 spray NASAL BID [facility] Last Admin: 05/27/18 20:59 Dose: 1 spray Furosemide (Lasix Inj) 80 mg IV.PUSH TID [facility] Last Admin: 05/27/18 17:05 Dose: 80 mg Glucagon (Glucagon Inj) 1 mg OTHER PRN PRN PRN Reason: for Hypoglycemia Protocol Insulin Aspart (Novolog Insulin Correctional Sugar Inj) 0 unit SQ ACHS AND 3AM [place]; Protocol Last Admin: 05/27/18 20:58 Dose: 5 unit Insulin Detemir (Levemir Inj) 58 unit SQ BID [facility] Last Admin: 05/27/18 20:58 Dose: 58 unit Lactulose (Lactulose Liq) 30 ml PO DAILY PRN PRN Reason: SEVERE CONSITIPATION Lisinopril (Prinivil) 2.5 mg PO DAILY [facility] Last Admin: 05/27/18 08:08 Dose: 2.5 mg Metolazone (Zaroxolyn) 2.5 mg PO BID [facility] Last Admin: 05/27/18 21:00 Dose: 2.5 mg Ondansetron HCl (Zofran Inj) 4 mg IV.PUSH Q6H PRN PRN Reason: NAUSEA OR VOMITING Pregabalin (Lyrica) 75 mg PO BID [facility] Last Admin: 05/27/18 21:02 Dose: 75 mg Senna/Docusate Sodium (Abiola-Colace) 1 tab PO BID [facility] Last Admin: 05/27/18 20:59 Dose: 1 tab Sennosides (Senokot) 17.2 mg PO Q12H PRN PRN Reason: Moderate Constipation Sodium Chloride (Ns Flush) 2 ml IV.FLUSH PRN PRN PRN Reason: FLUSH AFTER USING IV ACCESS Sodium Chloride (Ns Flush) 2 ml IV.FLUSH BID [facility] Last Admin: 05/27/18 21:02 Dose: 2 ml Tamsulosin HCl (Flomax) 0.4 mg PO HS [facility] Last Admin: 05/27/18 20:59 Dose: 0.4 mg Allergies Allergy/AdvReac Type Severity Reaction Status Date / Time No Known Allergies Allergy Verified 03/27/18 10:29 Home Medications Medication Instructions Recorded Confirmed Type hydrocodone-acetaminophen [Stambaugh] 1 tab PO Q6H 01/15/18 05/22/18 History insulin regular human [Humulin R 1 sliding scale dose SUB-Q UD 01/15/18 History Regular U-100 Insuln] lidocaine [Lidocaine Pain Relief] 1 patch TOPICAL Q8H 01/15/18 05/22/18 History ranitidine HCl [Zantac] 150 mg PO BID 01/15/18 05/22/18 History sitagliptin-metformin [Janumet] 1 tab PO DAILY 01/15/18 05/22/18 History tamsulosin [Flomax] 0.4 mg PO HS 01/15/18 05/22/18 History Physical Exam Vital signs: Vital Signs 05/27/18 00:00 05/27/18 00:54 05/27/18 01:00 Temperature Pulse Rate 82 92 H 80 Respiratory Rate 20 Blood Pressure Pulse Oximetry 98 05/27/18 02:00 05/27/18 03:00 05/27/18 04:00 Temperature 98.1 F Pulse Rate 80 81 78 Respiratory Rate 16 Blood Pressure 144/76 H Pulse Oximetry 98 05/27/18 04:06 05/27/18 05:00 05/27/18 06:00 Temperature Pulse Rate 90 78 82 Respiratory Rate 18 Blood Pressure Pulse Oximetry 05/27/18 07:00 05/27/18 08:00 05/27/18 09:00 Temperature Pulse Rate 75 76 86 Respiratory Rate 20 Blood Pressure 129/78 Pulse Oximetry 96 96 05/27/18 10:00 05/27/18 12:00 05/27/18 12:53 Temperature 97.7 F Pulse Rate 76 77 80 Respiratory Rate 20 16 Blood Pressure 146/70 H Pulse Oximetry 99 05/27/18 13:00 05/27/18 14:00 05/27/18 15:00 Temperature 98.5 F Pulse Rate 78 78 83 Respiratory Rate 20 Blood Pressure 142/70 H Pulse Oximetry 96 05/27/18 15:24 05/27/18 16:00 05/27/18 17:00 Temperature Pulse Rate 80 84 80 Respiratory Rate 16 Blood Pressure Pulse Oximetry 05/27/18 18:00 05/27/18 19:00 Temperature 98.9 F Pulse Rate 80 83 Respiratory Rate 18 Blood Pressure 147/74 H Pulse Oximetry 99 Intake & Output 05/27/18 05/27/18 05/28/18 06:59 18:59 06:59 Intake Total 480 / 480 Output Total 850 / 850 650 / 650 Balance -850 / -850 -170 / -170 Weight 107.3 kg Intake: Oral 480 / 480 Output: Urine Amount (Catheter) 850 / 850 650 / 650 Indwelling Urethral Catheter 850 / 850 650 / 650 Other: Date of Last Bowel Movement 05/25/18 Narrative: GENERAL: NAD, AAOx3 SKIN: Warm and dry. HEAD: Atraumatic. Normocephalic. EYES: Pupils equal and round. No scleral icterus. No injection or drainage. ENT: No nasal bleeding or discharge. Mucous membranes pink and moist. NECK: Trachea midline. No JVD. CARDIOVASCULAR: Regular rate and rhythm. RESPIRATORY: No accessory muscle use. Clear to auscultation. Breath sounds equal bilaterally. GASTROINTESTINAL: Abdomen soft, non-tender, nondistended. Hepatic and splenic margins not palpable. MUSCULOSKELETAL: Extremities without clubbing, cyanosis. 1+ pitting edema. No obvious deformities. NEUROLOGICAL: Awake and alert. No obvious cranial nerve deficits. Motor grossly within normal limits. Five out of 5 muscle strength in the arms and legs. Normal speech. PSYCHIATRIC: Appropriate mood and affect; insight and judgment normal. - Urinary Catheter Management Indwelling Urethral Catheter Cath placed during this visit: yes Reason for continuing: Hourly intake/output Insertion date: 05/22/18 Insertion time: 12:37 Results 05/25/18 05:43 05/27/18 06:10 Comprehensive Metabolic Panel 05/26/18 05/27/18 Range/Units 06:04 06:10 Sodium 141 140 (136-145) meq/L Potassium 4.4 4.8 (3.5-5.1) meq/L Chloride 103 103 (98-107) meq/L Carbon Dioxide 32.8 H 33.2 H (21.0-32.0) meq/L BUN 40 H 42 H (7-18) mg/dL Creatinine 1.90 H 1.97 H (0.60-1.30) mg/dL Calcium 8.2 L 8.5 (8.5-10.1) mg/dL Intake and Output 05/27/18 05/27/18 05/28/18 14:59 22:59 06:59 Intake Total 480 / 480 Output Total 650 / 650 Balance -170 / -170 Intake: Oral 480 / 480 Output: Urine Amount (Catheter) 650 / 650 Indwelling Urethral Catheter 650 / 650 Other: Date of Last Bowel Movement 05/25/18 05/25/18 - Imaging and Cardiology Imaging: Impressions Myocardial Perfusion Scan Nuc Med 05/26/18 00:00 CONCLUSION: 1. Significantly diminished perfusion involving the LAD and RCA territories has the appearance of myocardial infarction. The only part of the myocardium that appears viable is anterolateral wall. Assessment and Plan - Assessment (1) Ischemic cardiomyopathy Code(s): I25.5 - Ischemic cardiomyopathy Status: Acute Plan: ef < 20%, on rené/bb;for nuclear viability study today(cr too high for MRI), if some viability would recommend cabg. (2) CHF (congestive heart failure), NYHA class IV Code(s): I50.9 - Heart failure, unspecified Status: Acute Plan: improving on lasix (3) Edema Code(s): R60.9 - Edema, unspecified Status: Acute (4) Cardiorenal syndrome Code(s): I13.10 - Hypertensive heart and chronic kidney disease without heart failure, with stage 1 through stage 4 chronic kidney disease, or unspecified chronic kidney disease Status: Acute Plan: has diuresed some (though still overloaded), though now with worsening cr; will ask for renal assistance. - Plan 1. Ischemic cardiomyopathy Previous EF 20%, new echo read as EF 50%, but visually around 35% 2. Chronic systolic congestive heart failure. Diuresed well Edema improved 3. Severe multivessel coronary disease. Nuclear stress test showing multiple areas of infarction Viability showing some infarct, but anterior and inferior harrison other than apex appear possibly viable CT surgery seeing patient for consideration of CABG 4. Hypertension. 5. Hyperlipidemia (2) CHF (congestive heart failure), NYHA class IV Qualifiers: Congestive heart failure type: combined Congestive heart failure chronicity: acute on chronic Qualified Code(s): I50.43 - Acute on chronic combined systolic (congestive) and diastolic (congestive) heart failure
[2018-05-28] MEDS: Insulin NovoLOG Aspart Correctional Sugar Inj SQ SCH ×5 (03:06→21:58)
[2018-05-28 05:47] LABS: Calcium 8.1 mg/dL (8.5-10.1); Carbon Dioxide 33.8 meq/L (21.0-32.0); Potassium 4.4 meq/L (3.5-5.1)
[2018-05-28] MEDS: Budesonide-Formoterol 160/4.5 MCG 6 GM Inhaler INH SCH ×2 (09:13→21:56)
[2018-05-28] MEDS: Enoxaparin Inj 30 MG/0.3 ML Syringe SQ SCH (09:19)
[2018-05-28] MEDS: Acetaminophen 325 MG Tablet PO PRN (09:20)
[2018-05-28] MEDS: Famotidine 20 MG Tablet PO SCH ×2 (09:21→21:54)
[2018-05-28] MEDS: Lisinopril 5 MG Tablet PO SCH (09:21)
[2018-05-28] MEDS: Pregabalin 75 MG Capsule PO SCH ×2 (09:22→21:53)
[2018-05-28] MEDS: Senna/Docusate Sodium 8.6/50 MG Tablet PO SCH ×2 (09:24→21:54)
[2018-05-28] MEDS: Carvedilol 12.5 MG Tablet PO SCH ×2 (09:24→21:54)
[2018-05-28] MEDS: Insulin Detemir Inj 1,000 UNIT/10 ML Vial SQ SCH ×2 (09:25→22:00)
--- NOTE | 2018-05-28 09:42 | P.PNFP ---
Subjective Interval history: Patient states edema in most of his body has improved greatly/resolved. Has significant swelling in the scrotum that is causing significant pain that is tender to touch and worse with any type of movement. Rolon has been placed to facilitate output. Seen by nephro yesterday who increased Lasix dosage and frequency and added metolazone. Patient states he does not want to leave the hospital with a rolon catheter. On 3 L NC but does not feel greatly short of breath. No acute events overnight and vitals stable. <Marlee Rhodes N - 05/28/18 09:41> Results - Labs Result diagrams: 05/25/18 05:43 05/28/18 04:26 <Jose Monroe - 05/28/18 10:51> Abnormal lab results 05/27/18 05/27/18 05/27/18 Range/Units 12:08 17:01 20:40 Carbon Dioxide (21.0-32.0) meq/L BUN (7-18) mg/dL Creatinine (0.60-1.30) mg/dL Estimated GFR (>89) mL/min POC Glucose 295 H 208 H 189 H (68-110) mg/dl Random Glucose (74-106) mg/dL Calcium (8.5-10.1) mg/dL 05/28/18 05/28/18 Range/Units 02:51 04:26 Carbon Dioxide 33.8 H (21.0-32.0) meq/L BUN 41 H (7-18) mg/dL Creatinine 1.87 H (0.60-1.30) mg/dL Estimated GFR 37 L (>89) mL/min POC Glucose 138 H (68-110) mg/dl Random Glucose 122 H (74-106) mg/dL Calcium 8.1 L (8.5-10.1) mg/dL BMP 05/28/18 04:26 Sodium 141 Potassium 4.4 Chloride 102 Carbon Dioxide 33.8 H BUN 41 H Creatinine 1.87 H Calcium 8.1 L <Jose Monroe - 05/28/18 10:51> Abnormal lab results 05/27/18 05/27/18 05/27/18 Range/Units 12:08 17:01 20:40 Carbon Dioxide (21.0-32.0) meq/L BUN (7-18) mg/dL Creatinine (0.60-1.30) mg/dL Estimated GFR (>89) mL/min POC Glucose 295 H 208 H 189 H (68-110) mg/dl Random Glucose (74-106) mg/dL Calcium (8.5-10.1) mg/dL 05/28/18 05/28/18 Range/Units 02:51 04:26 Carbon Dioxide 33.8 H (21.0-32.0) meq/L BUN 41 H (7-18) mg/dL Creatinine 1.87 H (0.60-1.30) mg/dL Estimated GFR 37 L (>89) mL/min POC Glucose 138 H (68-110) mg/dl Random Glucose 122 H (74-106) mg/dL Calcium 8.1 L (8.5-10.1) mg/dL BMP 05/28/18 04:26 Sodium 141 Potassium 4.4 Chloride 102 Carbon Dioxide 33.8 H BUN 41 H Creatinine 1.87 H Calcium 8.1 L <Marlee Rhodes - 05/28/18 09:41> - Imaging Impressions Myocardial Perfusion Scan Nuc Med 05/26/18 00:00 CONCLUSION: 1. Significantly diminished perfusion involving the LAD and RCA territories has the appearance of myocardial infarction. The only part of the myocardium that appears viable is anterolateral wall. <Jose Monroe - 05/28/18 10:51> Impressions Myocardial Perfusion Scan Nuc Med 05/26/18 00:00 CONCLUSION: 1. Significantly diminished perfusion involving the LAD and RCA territories has the appearance of myocardial infarction. The only part of the myocardium that appears viable is anterolateral wall. <Marlee Rhodes - 05/28/18 09:41> Physical Exam Vital signs: Vital Signs 05/27/18 12:00 05/27/18 12:53 05/27/18 13:00 Temperature 97.7 F Pulse Rate 77 80 78 Respiratory Rate 20 16 Blood Pressure 146/70 H Pulse Oximetry 99 05/27/18 14:00 05/27/18 15:00 05/27/18 15:24 Temperature 98.5 F Pulse Rate 78 83 80 Respiratory Rate 20 16 Blood Pressure 142/70 H Pulse Oximetry 96 05/27/18 16:00 05/27/18 17:00 05/27/18 18:00 Temperature Pulse Rate 84 80 80 Respiratory Rate Blood Pressure Pulse Oximetry 05/27/18 19:00 05/27/18 20:00 05/27/18 21:00 Temperature 98.9 F Pulse Rate 78 82 80 Respiratory Rate 18 Blood Pressure 147/74 H Pulse Oximetry 99 99 05/27/18 22:00 05/27/18 23:00 05/28/18 00:00 Temperature 98.3 F Pulse Rate 80 78 74 Respiratory Rate 16 Blood Pressure 143/71 H Pulse Oximetry 99 05/28/18 01:00 05/28/18 02:00 05/28/18 02:57 Temperature Pulse Rate 74 72 76 Respiratory Rate 18 Blood Pressure 141/73 H Pulse Oximetry 97 05/28/18 03:00 05/28/18 04:00 05/28/18 05:00 Temperature Pulse Rate 74 81 76 Respiratory Rate 18 Blood Pressure Pulse Oximetry 05/28/18 06:00 05/28/18 07:00 05/28/18 08:00 Temperature 98 F Pulse Rate 70 73 74 Respiratory Rate 18 Blood Pressure 140/71 Pulse Oximetry 99 97 05/28/18 08:41 Temperature Pulse Rate Respiratory Rate Blood Pressure Pulse Oximetry 93 L Intake & Output 05/27/18 05/28/18 05/28/18 18:59 06:59 18:59 Intake Total 480 / 480 580 / 580 Output Total 650 / 650 1075 / 1075 Balance -170 / -170 -495 / -495 Weight 105.5 kg Intake: Oral 480 / 480 580 / 580 Output: Urine Amount (Catheter) 650 / 650 1075 / 1075 Indwelling Urethral Catheter 650 / 650 1075 / 1075 Other: Date of Last Bowel Movement 05/25/18 05/25/18 05/25/18 <Jose Monroe - 05/28/18 10:51> Vital Signs 05/27/18 10:00 05/27/18 12:00 05/27/18 12:53 Temperature 97.7 F Pulse Rate 76 77 80 Respiratory Rate 20 16 Blood Pressure 146/70 H Pulse Oximetry 99 05/27/18 13:00 05/27/18 14:00 05/27/18 15:00 Temperature 98.5 F Pulse Rate 78 78 83 Respiratory Rate 20 Blood Pressure 142/70 H Pulse Oximetry 96 05/27/18 15:24 05/27/18 16:00 05/27/18 17:00 Temperature Pulse Rate 80 84 80 Respiratory Rate 16 Blood Pressure Pulse Oximetry 05/27/18 18:00 05/27/18 19:00 05/27/18 20:00 Temperature 98.9 F Pulse Rate 80 78 82 Respiratory Rate 18 Blood Pressure 147/74 H Pulse Oximetry 99 99 05/27/18 21:00 05/27/18 22:00 05/27/18 23:00 Temperature 98.3 F Pulse Rate 80 80 78 Respiratory Rate 16 Blood Pressure 143/71 H Pulse Oximetry 99 05/28/18 00:00 05/28/18 01:00 05/28/18 02:00 Temperature Pulse Rate 74 74 72 Respiratory Rate Blood Pressure Pulse Oximetry 05/28/18 02:57 05/28/18 03:00 05/28/18 04:00 Temperature Pulse Rate 76 74 81 Respiratory Rate 18 18 Blood Pressure 141/73 H Pulse Oximetry 97 05/28/18 05:00 05/28/18 06:00 05/28/18 07:00 Temperature 98 F Pulse Rate 76 70 73 Respiratory Rate 18 Blood Pressure 140/71 Pulse Oximetry 99 05/28/18 08:00 05/28/18 08:41 Temperature Pulse Rate 74 Respiratory Rate Blood Pressure Pulse Oximetry 97 93 L Intake & Output 05/27/18 05/28/18 05/28/18 18:59 06:59 18:59 Intake Total 480 / 480 580 / 580 Output Total 650 / 650 1075 / 1075 Balance -170 / -170 -495 / -495 Weight 105.5 kg Intake: Oral 480 / 480 580 / 580 Output: Urine Amount (Catheter) 650 / 650 1075 / 1075 Indwelling Urethral Catheter 650 / 650 1075 / 1075 Other: Date of Last Bowel Movement 05/25/18 05/25/18 05/25/18 <Abid R2Marlee N - 05/28/18 09:41> Narrative: GENERAL: NAD, AAOx3 SKIN: Warm and dry. HEAD: Atraumatic. Normocephalic. CARDIOVASCULAR: Regular rate and rhythm. RESPIRATORY: No accessory muscle use. Clear to auscultation. Breath sounds equal bilaterally. GASTROINTESTINAL: Abdomen soft, non-tender, nondistended. MUSCULOSKELETAL: Extremities without clubbing, cyanosis. 1+ pitting edema. No obvious deformities. NEUROLOGICAL: Awake and alert. No obvious cranial nerve deficits. <Abid R2,Marlee N - 05/28/18 09:41> - Urinary Catheter Management Indwelling Urethral Catheter Cath placed during this visit: no <Jose Monroe - 05/28/18 10:51> yes <Abid Marlee Boothe N - 05/28/18 09:41> Reason for continuing: Hourly intake/output <Abid Marlee Boothe 05/28/18 09:41 > Insertion date: 05/22/18 <Abid Marlee Boothe 05/28/18 09:41> Insertion time: 12:37 <Abid Marlee Boothe N 05/28/18 09:41> Assessment and Plan - Assessment (1) CHF (congestive heart failure), NYHA class IV Code(s): I50.9 - Heart failure, unspecified Status: Acute (2) COPD (chronic obstructive pulmonary disease) Code(s): J44.9 - Chronic obstructive pulmonary disease, unspecified Status: Acute (3) Ischemic cardiomyopathy Code(s): I25.5 - Ischemic cardiomyopathy Status: Acute (4) CAD (coronary artery disease) Code(s): I25.10 - Atherosclerotic heart disease of [place] coronary artery without angina pectoris Status: Acute (5) DM2 (diabetes mellitus, type 2) Code(s): E11.9 - Type 2 diabetes mellitus without complications Status: Acute (6) HTN (hypertension) Code(s): I10 - Essential (primary) hypertension Status: Acute (7) Chronic kidney disease Code(s): N18.9 - Chronic kidney disease, unspecified Status: Acute (8) Nutrition, metabolism, and development symptoms Code(s): R63.8 - Other symptoms and signs concerning food and fluid intake Status: Acute <Jose Monroe - 05/28/18 10:51> (1) CHF (congestive heart failure), NYHA class IV Code(s): I50.9 - Heart failure, unspecified Status: Acute Plan: Improved overall but now scrotal edema needs to be addressed -Con't to monitor I's and O's strictly with daily weights * Patient has an indwelling ureteral catheter 05/22 due to scrotal edema -Fluid restriction 1.5 L -Salt restriction 2 g Lasix increased to 80 mg TID and metolazone added BID by Nephrology CV surgery will plan to evaluate for CABG next week based on viability scan results Cleared from cardiology perspective. Plan to have him f/u w/Dr. Caraballo outpatient Related consults: cardiology nephrology CV surgery (2) COPD (chronic obstructive pulmonary disease) Code(s): J44.9 - Chronic obstructive pulmonary disease, unspecified Status: Acute Plan: Patients personal desk monitor Dr. Carlson on board. Continue Symbicort Continue Atrovent BID Albuterol PRN O2 as needed Incentive spirometry (3) Ischemic cardiomyopathy Code(s): I25.5 - Ischemic cardiomyopathy Status: Acute Plan: -EF 50%, FEV1 0.8. Poor surgical candidate. -Continue carvedilol and JEREMY inhibitor (4) CAD (coronary artery disease) Code(s): I25.10 - Atherosclerotic heart disease of [place] coronary artery without angina pectoris Status: Acute Plan: -Patient with history of previous DC -Continue aspirin and Plavix -Continue atorvastatin 80 mg p.o. HS (5) DM2 (diabetes mellitus, type 2) Code(s): E11.9 - Type 2 diabetes mellitus without complications Status: Acute Plan: Improved control - Levemir 58 units BID - High dose SSI Con't to adjust based on requirements over the course of the day (6) HTN (hypertension) Code(s): I10 - Essential (primary) hypertension Status: Acute Plan: -Continue with carvedilol 12.5 mg twice daily -Continue Lisinopril 2.5 mg daily (7) Chronic kidney disease Code(s): N18.9 - Chronic kidney disease, unspecified Status: Acute Plan: Creatinine: stable around 1.9 GFR 36 Will require outpatient monitoring (8) Nutrition, metabolism, and development symptoms Code(s): R63.8 - Other symptoms and signs concerning food and fluid intake Status: Acute Plan: Fluids: Oral fluids only, restrict to 1.5 L due to CHF Electrolytes: Monitor and replete as needed Nutrition: Cardiac and diabetic diet. Salt restricted 2g daily. <Marlee Rhodes N - 05/28/18 09:30> - Assessment and Plan 63-year-old male presented with acute on chronic CHF exacerbation. Elevated BNP with bilateral 2+ pitting edema, distended abdomen, crackles bilaterally throughout all lung wat[place]. Patient was started on 40 IV Lasix twice daily and improved. Cardiology consulted due to ejection fraction of less than 20% and plan to perform nuclear viability study to determine if he needs a CABG. Patient also has diabetes, on Levemir 20 units twice daily, high dose sliding scale. ACS rule out was negative. <Marlee Rhodes - 05/28/18 09:41> Discharge Planning: Requires further medical optimization (and removal of catheter) before DC <AbiMarlee Frederick - 05/28/18 09:41> - Attending Attestation Patient case discussed with resident physicians I have independently examined the patient I have read the above note and agree with the assessment and plan as discussed with me I was involved in all medical decision making for this patient Jose Monroe MD <Jose Monroe - 05/28/18 10:51> <AbiMarlee Frederick N - Last Filed: 05/28/18 09:30> (1) CHF (congestive heart failure), NYHA class IV Qualifiers: Congestive heart failure type: combined Congestive heart failure chronicity: acute on chronic Qualified Code(s): I50.43 - Acute on chronic combined systolic (congestive) and diastolic (congestive) heart failure (5) DM2 (diabetes mellitus, type 2) Qualifiers: Diabetes mellitus retirement insulin use: with buttermaker use Diabetes mellitus complication status: with circulatory complication Diabetes mellitus complication detail: with other circulatory complications Qualified Code(s): E11.59 - Type 2 diabetes mellitus with other circulatory complications; Z79.4 - custodial (current) use of insulin (6) HTN (hypertension) Qualifiers: Hypertension type: essential hypertension Qualified Code(s): I10 - Essential (primary) hypertension (7) Chronic kidney disease Qualifiers: Chronic kidney disease stage: unspecified stage Qualified Code(s): N18.9 - Chronic kidney disease, unspecified <Jose Monroe - Last Filed: 05/28/18 10:51> (1) CHF (congestive heart failure), NYHA class IV Qualifiers: Congestive heart failure type: combined Congestive heart failure chronicity: acute on chronic Qualified Code(s): I50.43 - Acute on chronic combined systolic (congestive) and diastolic (congestive) heart failure (5) DM2 (diabetes mellitus, type 2) Qualifiers: Diabetes mellitus retirement insulin use: with retirement use Diabetes mellitus complication status: with circulatory complication Diabetes mellitus complication detail: with other circulatory complications Qualified Code(s): E11.59 - Type 2 diabetes mellitus with other circulatory complications; Z79.4 - custodial (current) use of insulin (6) HTN (hypertension) Qualifiers: Hypertension type: essential hypertension Qualified Code(s): I10 - Essential (primary) hypertension (7) Chronic kidney disease Qualifiers: Chronic kidney disease stage: unspecified stage Qualified Code(s): N18.9 - Chronic kidney disease, unspecified <Abid Marlee Boothe N - Last Filed: 05/28/18 09:30> (1) CHF (congestive heart failure), NYHA class IV Qualifiers: Congestive heart failure type: combined Congestive heart failure chronicity: acute on chronic Qualified Code(s): I50.43 - Acute on chronic combined systolic (congestive) and diastolic (congestive) heart failure (5) DM2 (diabetes mellitus, type 2) Qualifiers: Diabetes mellitus buttermaker insulin use: with retirement use Diabetes mellitus complication status: with circulatory complication Diabetes mellitus complication detail: with other circulatory complications Qualified Code(s): E11.59 - Type 2 diabetes mellitus with other circulatory complications; Z79.4 - buttermaker (current) use of insulin (6) HTN (hypertension) Qualifiers: Hypertension type: essential hypertension Qualified Code(s): I10 - Essential (primary) hypertension (7) Chronic kidney disease Qualifiers: Chronic kidney disease stage: unspecified stage Qualified Code(s): N18.9 - Chronic kidney disease, unspecified <FerJose - Last Filed: 05/28/18 10:51> (1) CHF (congestive heart failure), NYHA class IV Qualifiers: Congestive heart failure type: combined Congestive heart failure chronicity: acute on chronic Qualified Code(s): I50.43 - Acute on chronic combined systolic (congestive) and diastolic (congestive) heart failure (5) DM2 (diabetes mellitus, type 2) Qualifiers: Diabetes mellitus retirement insulin use: with retirement use Diabetes mellitus complication status: with circulatory complication Diabetes mellitus complication detail: with other circulatory complications Qualified Code(s): E11.59 - Type 2 diabetes mellitus with other circulatory complications; Z79.4 - custodial (current) use of insulin (6) HTN (hypertension) Qualifiers: Hypertension type: essential hypertension Qualified Code(s): I10 - Essential (primary) hypertension (7) Chronic kidney disease Qualifiers: Chronic kidney disease stage: unspecified stage Qualified Code(s): N18.9 - Chronic kidney disease, unspecified
--- NOTE | 2018-05-28 13:55 | P.PNNP ---
Subjective Interval history: Patient denies any shortness of breath, chest pain, nausea, or vomiting. Creatinine remaining stable at 1.8 today <Mona Chavez - Last Filed: 05/28/18 13:48> Physical Exam Vital signs: Vital Signs 05/27/18 14:00 05/27/18 15:00 05/27/18 15:24 Temperature 98.5 F Pulse Rate 78 83 80 Respiratory Rate 20 16 Blood Pressure 142/70 H Pulse Oximetry 96 05/27/18 16:00 05/27/18 17:00 05/27/18 18:00 Temperature Pulse Rate 84 80 80 Respiratory Rate Blood Pressure Pulse Oximetry 05/27/18 19:00 05/27/18 20:00 05/27/18 21:00 Temperature 98.9 F Pulse Rate 78 82 80 Respiratory Rate 18 Blood Pressure 147/74 H Pulse Oximetry 99 99 05/27/18 22:00 05/27/18 23:00 05/28/18 00:00 Temperature 98.3 F Pulse Rate 80 78 74 Respiratory Rate 16 Blood Pressure 143/71 H Pulse Oximetry 99 05/28/18 01:00 05/28/18 02:00 05/28/18 02:57 Temperature Pulse Rate 74 72 76 Respiratory Rate 18 Blood Pressure 141/73 H Pulse Oximetry 97 05/28/18 03:00 05/28/18 04:00 05/28/18 05:00 Temperature Pulse Rate 74 81 76 Respiratory Rate 18 Blood Pressure Pulse Oximetry 05/28/18 06:00 05/28/18 07:00 05/28/18 08:00 Temperature 98 F Pulse Rate 70 73 74 Respiratory Rate 18 Blood Pressure 140/71 Pulse Oximetry 99 97 05/28/18 08:41 05/28/18 09:00 05/28/18 10:00 Temperature Pulse Rate 76 78 Respiratory Rate Blood Pressure Pulse Oximetry 93 L 05/28/18 11:00 05/28/18 12:00 05/28/18 13:00 Temperature 97.7 F Pulse Rate 77 78 69 Respiratory Rate 20 Blood Pressure 136/73 Pulse Oximetry 99 Intake & Output 05/27/18 05/28/18 05/28/18 18:59 06:59 18:59 Intake Total 480 / 480 580 / 580 Output Total 650 / 650 1075 / 1075 Balance -170 / -170 -495 / -495 Weight 105.5 kg Intake: Oral 480 / 480 580 / 580 Output: Urine Amount (Catheter) 650 / 650 1075 / 1075 Indwelling Urethral Catheter 650 / 650 1075 / 1075 Other: Date of Last Bowel Movement 05/25/18 05/25/18 05/25/18 Narrative: GENERAL: NAD, AAOx3 SKIN: Warm and dry.. CARDIOVASCULAR: Regular rate and rhythm. RESPIRATORY: No accessory muscle use. Clear to auscultation. Breath sounds equal bilaterally. GASTROINTESTINAL: Abdomen soft, non-tender, nondistended. GENITOURINARY: Indwelling Chung catheter. Scrotal edema. MUSCULOSKELETAL: Extremities without clubbing, cyanosis. 1+ pitting edema. No obvious deformities. NEUROLOGICAL: Awake and alert. No obvious cranial nerve deficits. - Urinary Catheter Management Indwelling Urethral Catheter Cath placed during this visit: yes Reason for continuing: Hourly intake/output Insertion date: 05/22/18 Insertion time: 12:37 <Mona Chavez - Last Filed: 05/28/18 13:48> Vital signs: Vital Signs 05/27/18 22:00 05/27/18 23:00 05/28/18 00:00 Temperature 98.3 F Pulse Rate 80 78 74 Respiratory Rate 16 Blood Pressure 143/71 H Pulse Oximetry 99 05/28/18 01:00 05/28/18 02:00 05/28/18 02:57 Temperature Pulse Rate 74 72 76 Respiratory Rate 18 Blood Pressure 141/73 H Pulse Oximetry 97 05/28/18 03:00 05/28/18 04:00 05/28/18 05:00 Temperature Pulse Rate 74 81 76 Respiratory Rate 18 Blood Pressure Pulse Oximetry 05/28/18 06:00 05/28/18 07:00 05/28/18 08:00 Temperature 98 F Pulse Rate 70 73 74 Respiratory Rate 18 Blood Pressure 140/71 Pulse Oximetry 99 97 05/28/18 08:41 05/28/18 09:00 05/28/18 10:00 Temperature Pulse Rate 76 78 Respiratory Rate Blood Pressure Pulse Oximetry 93 L 05/28/18 11:00 05/28/18 12:00 05/28/18 13:00 Temperature 97.7 F Pulse Rate 77 78 69 Respiratory Rate 20 Blood Pressure 136/73 Pulse Oximetry 99 05/28/18 14:00 05/28/18 15:00 05/28/18 16:00 Temperature 98.9 F Pulse Rate 61 77 76 Respiratory Rate 20 Blood Pressure 131/60 Pulse Oximetry 99 05/28/18 17:00 05/28/18 18:00 05/28/18 19:00 Temperature Pulse Rate 87 80 80 Respiratory Rate 18 Blood Pressure Pulse Oximetry 96 Intake & Output 05/28/18 05/28/18 05/29/18 06:59 18:59 06:59 Intake Total 580 / 580 480 / 480 Output Total 1075 / 1075 2099 Balance -495 / -495 -1620 / -1620 Weight 105.5 kg Intake: Oral 580 / 580 480 / 480 Output: Urine Amount (Catheter) 1074 / 1074 Indwelling Urethral Catheter 1074 Other: Date of Last Bowel Movement 05/25/18 05/25/18 # Bowel Movements 0 - Urinary Catheter Management Indwelling Urethral Catheter Cath placed during this visit: no <Karlos Armenta - Last Filed: 05/28/18 21:21> Assessment and Plan - Assessment (1) Acute kidney injury superimposed on chronic kidney disease Code(s): N17.9 - Acute kidney failure, unspecified; N18.9 - Chronic kidney disease, unspecified Status: Acute Plan: Patient with chronic kidney disease and develop ALISHA with anasarca. Has Congestive heart disease and low EF. Avoid nephrotoxins. Continues to have fluid overload. Continue Lasix 80 mg TID dose increased yesterday and metolazone. 2 KG weight loss documented. Try to keep in negative fluid balance. Follow the urine out put and BMP. (2) Hyperlipidemia Code(s): E78.5 - Hyperlipidemia, unspecified Status: Acute Qualifiers: Hyperlipidemia type: unspecified Qualified Code(s): E78.5 - Hyperlipidemia , unspecified Plan: On atorvastatin (3) Edema Code(s): R60.9 - Edema, unspecified Status: Acute Plan: Continue lasix maintain strict I+O Daily weights Low sodium diet. (4) DM2 (diabetes mellitus, type 2) Code(s): E11.9 - Type 2 diabetes mellitus without complications Status: Acute Qualifiers: Diabetes mellitus terminal press operator insulin use: with longterm use Diabetes mellitus complication status: with circulatory complication Diabetes mellitus complication detail: with other circulatory complications Qualified Code(s): E11.59 - Type 2 diabetes mellitus with other circulatory complications; Z79.4 - terminal make up operator (current) use of insulin Plan: Maintain blood sugars between 140 mg/dl to 180 mg/dl while hospitalized. Elevated at times. (5) CHF (congestive heart failure), NYHA class IV Code(s): I50.9 - Heart failure, unspecified Status: Acute Qualifiers: Congestive heart failure type: combined Congestive heart failure chronicity : acute on chronic Qualified Code(s): I50.43 - Acute on chronic combined systolic (congestive) and diastolic (congestive) heart failure Plan: On lasix, patient reports that edema is improving. (6) Elevated troponin Code(s): R74.8 - Abnormal levels of other serum enzymes Status: Acute Plan: Cardiology following <Mona Chavez - Last Filed: 05/28/18 13:48> - Assessment (1) Acute kidney injury superimposed on chronic kidney disease Code(s): N17.9 - Acute kidney failure, unspecified; N18.9 - Chronic kidney disease, unspecified Status: Acute Plan: Patient seen and examined, agree with above. Continue Lasix and Metolazone, urine out put is better, Follow the urine out put and BMP. (2) Hyperlipidemia Code(s): E78.5 - Hyperlipidemia, unspecified Status: Acute Qualifiers: Hyperlipidemia type: unspecified Qualified Code(s): E78.5 - Hyperlipidemia , unspecified (3) Edema Code(s): R60.9 - Edema, unspecified Status: Acute (4) DM2 (diabetes mellitus, type 2) Code(s): E11.9 - Type 2 diabetes mellitus without complications Status: Acute Qualifiers: Diabetes mellitus terminal press operator insulin use: with longterm use Diabetes mellitus complication status: with circulatory complication Diabetes mellitus complication detail: with other circulatory complications Qualified Code(s): E11.59 - Type 2 diabetes mellitus with other circulatory complications; Z79.4 - [facility] (current) use of insulin (5) CHF (congestive heart failure), NYHA class IV Code(s): I50.9 - Heart failure, unspecified Status: Acute Qualifiers: Congestive heart failure type: combined Congestive heart failure chronicity : acute on chronic Qualified Code(s): I50.43 - Acute on chronic combined systolic (congestive) and diastolic (congestive) heart failure (6) Elevated troponin Code(s): R74.8 - Abnormal levels of other serum enzymes Status: Acute <Karlos Armenta - Last Filed: 05/28/18 21:21>
--- NOTE | 2018-05-28 16:49 | P.PNPL ---
Subjective Interval history: 63 YOWM with CAD,CMP,COPD , restrictive lung disease Breathing better Perfusion scan showes fixed defect and EF 32% C/O Scrotal swelling diureasing with Lasix 80 mg q 8 hrs Wants more breathing nebs Physical Exam Vital signs: Vital Signs 05/27/18 17:00 05/27/18 18:00 05/27/18 19:00 Temperature 98.9 F Pulse Rate 80 80 78 Respiratory Rate 18 Blood Pressure 147/74 H Pulse Oximetry 99 05/27/18 20:00 05/27/18 21:00 05/27/18 22:00 Temperature Pulse Rate 82 80 80 Respiratory Rate Blood Pressure Pulse Oximetry 99 05/27/18 23:00 05/28/18 00:00 05/28/18 01:00 Temperature 98.3 F Pulse Rate 78 74 74 Respiratory Rate 16 Blood Pressure 143/71 H Pulse Oximetry 99 05/28/18 02:00 05/28/18 02:57 05/28/18 03:00 Temperature Pulse Rate 72 76 74 Respiratory Rate 18 18 Blood Pressure 141/73 H Pulse Oximetry 97 05/28/18 04:00 05/28/18 05:00 05/28/18 06:00 Temperature Pulse Rate 81 76 70 Respiratory Rate Blood Pressure Pulse Oximetry 05/28/18 07:00 05/28/18 08:00 05/28/18 08:41 Temperature 98 F Pulse Rate 73 74 Respiratory Rate 18 Blood Pressure 140/71 Pulse Oximetry 99 97 93 L 05/28/18 09:00 05/28/18 10:00 05/28/18 11:00 Temperature 97.7 F Pulse Rate 76 78 77 Respiratory Rate 20 Blood Pressure 136/73 Pulse Oximetry 99 05/28/18 12:00 05/28/18 13:00 05/28/18 14:00 Temperature Pulse Rate 78 69 61 Respiratory Rate Blood Pressure Pulse Oximetry 05/28/18 15:00 05/28/18 16:00 Temperature 98.9 F Pulse Rate 77 76 Respiratory Rate 20 Blood Pressure 131/60 Pulse Oximetry 99 Intake & Output 05/27/18 05/28/18 05/28/18 18:59 06:59 18:59 Intake Total 480 / 480 580 / 580 Output Total 650 / 650 1075 / 1075 Balance -170 / -170 -495 / -495 Weight 105.5 kg Intake: Oral 480 / 480 580 / 580 Output: Urine Amount (Catheter) 650 / 650 1075 / 1075 Indwelling Urethral Catheter 650 / 650 1075 / 1075 Other: Date of Last Bowel Movement 05/25/18 05/25/18 05/25/18 GENERAL: Elderly WM, NAD SKIN: Warm and dry. HEAD: Normocephalic. EYES: No scleral icterus. No injection or drainage. NECK: Supple, trachea midline. No JVD or lymphadenopathy. CARDIOVASCULAR: Regular rate and rhythm without murmurs, gallops, or rubs. RESPIRATORY: Breath sounds equal bilaterally. No accessory muscle use. GASTROINTESTINAL: Abdomen soft, non-tender, nondistended. MUSCULOSKELETAL: No cyanosis, or edema. Scrotal swelling BACK: Nontender without obvious deformity. No CVA tenderness. - Urinary Catheter Management Indwelling Urethral Catheter Cath placed during this visit: yes Reason for continuing: Hourly intake/output Insertion date: 05/22/18 Insertion time: 12:37 Assessment and Plan - Plan IMPRESSION: 1. Severe pulmonary disease. He has obstructive lung disease as well as restrictive lung disease. His FEV1 is 0.81. 2. Severe cardiomyopathy with an ejection fraction of 32%. 3. Multivessel coronary artery disease. 4. Diabetes mellitus. 5. Neuropathy. 6. Obesity. 7. Renal insufficiency. PLAN: Supplement 02 renewAerosol nebs Diurease with Lasix 80 mg q 8 hrs, Monitor Renal functions Symbicort 2 puffs bid Plavix 75 mg daily Flonase NS Stable from Pulm standpoint
--- NOTE | 2018-05-29 01:25 | P.PNCA ---
Subjective Interval history: No events overnight Feels well Creatinine stable Medications and Allergies Active Medications: Active Medications Acetaminophen (Tylenol) 650 mg PO Q4H PRN PRN Reason: Temp > 100.4, Pain scale 1-2 Last Admin: 05/28/18 09:20 Dose: 650 mg Hydrocodone Bitart/Acetaminophen ([place] 10/325) 1 tab PO Q6H PRN PRN Reason: Pain scale 3-10 Last Admin: 05/28/18 23:49 Dose: 1 tab Al Hydroxide/Mg Hydroxide (Milk Of Magncheri Liq) 30 ml PO Q12H PRN PRN Reason: Mild Constipation Albuterol (Duoneb Neb ([facility])) 1 ampul NEB Q6HR WHILE AWAKE NEB [facility] Last Admin: 05/28/18 18:58 Dose: 1 ampul Aspirin (Ecotrin) 81 mg PO DAILY [facility] Last Admin: 05/28/18 09:24 Dose: 81 mg Atorvastatin Calcium (Lipitor) 80 mg PO HS [facility] Last Admin: 05/28/18 21:54 Dose: 80 mg Benzonatate (Tessalon Perles) 100 mg PO Q8H PRN PRN Reason: COUGH Last Admin: 05/25/18 23:59 Dose: 100 mg Bisacodyl (Dulcolax Supp) 10 mg RECTAL DAILY PRN PRN Reason: SEVERE CONSITIPATION Budesonide/Formoterol Fumarate (Symbicort 160/4.5 Mcg Inh) 2 puff INH BID [facility] Last Admin: 05/28/18 21:56 Dose: 2 puff Carvedilol (Coreg) 12.5 mg PO BID [facility] Last Admin: 05/28/18 21:54 Dose: 12.5 mg Clopidogrel Bisulfate (Plavix) 75 mg PO DAILY [facility] Last Admin: 05/28/18 09:22 Dose: 75 mg Dextrose (D50w Vial) 50 ml IV.PUSH UNSCH PRN PRN Reason: PER HYPOGLYCEMIA PROTOCOL Enoxaparin Sodium (Lovenox Inj) 30 mg SQ DAILY [facility] Last Admin: 05/28/18 09:19 Dose: 30 mg Famotidine (Pepcid) 10 mg PO BID [facility] Last Admin: 05/28/18 21:54 Dose: 10 mg Fluticasone Propionate (Flonase Nasal Pep) 1 spray NASAL BID [facility] Last Admin: 05/28/18 21:56 Dose: 1 spray Furosemide (Lasix Inj) 80 mg IV.PUSH TID [facility] Last Admin: 05/28/18 17:21 Dose: 80 mg Glucagon (Glucagon Inj) 1 mg OTHER PRN PRN PRN Reason: for Hypoglycemia Protocol Insulin Aspart (Novolog Insulin [employer] Sugar Inj) 0 unit SQ ACHS AND 3AM [place]; Protocol Last Admin: 05/28/18 21:58 Dose: 15 unit Insulin Detemir (Levemir Inj) 58 unit SQ BID [facility] Last Admin: 05/28/18 22:00 Dose: 58 unit Lactulose (Lactulose Liq) 30 ml PO DAILY PRN PRN Reason: SEVERE CONSITIPATION Lisinopril (Prinivil) 2.5 mg PO DAILY [facility] Last Admin: 05/28/18 09:21 Dose: 2.5 mg Metolazone (Zaroxolyn) 2.5 mg PO BID [facility] Last Admin: 05/28/18 21:54 Dose: 2.5 mg Ondansetron HCl (Zofran Inj) 4 mg IV.PUSH Q6H PRN PRN Reason: NAUSEA OR VOMITING Pregabalin (Lyrica) 75 mg PO BID [facility] Last Admin: 05/28/18 21:53 Dose: 75 mg Senna/Docusate Sodium (Abiola-Colace) 1 tab PO BID [facility] Last Admin: 05/28/18 21:54 Dose: 1 tab Sennosides (Senokot) 17.2 mg PO Q12H PRN PRN Reason: Moderate Constipation Sodium Chloride (Ns Flush) 2 ml IV.FLUSH PRN PRN PRN Reason: FLUSH AFTER USING IV ACCESS Sodium Chloride (Ns Flush) 2 ml IV.FLUSH BID [facility] Last Admin: 05/28/18 23:49 Dose: 2 ml Tamsulosin HCl (Flomax) 0.4 mg PO HS [facility] Last Admin: 05/28/18 21:54 Dose: 0.4 mg Allergies Allergy/AdvReac Type Severity Reaction Status Date / Time No Known Allergies Allergy Verified 03/27/18 10:29 Home Medications Medication Instructions Recorded Confirmed Type hydrocodone-acetaminophen [[place]] 1 tab PO Q6H 01/15/18 05/22/18 History insulin regular human [Humulin R 1 sliding scale dose SUB-Q UD 01/15/18 History Regular U-100 Insuln] lidocaine [Lidocaine Pain Relief] 1 patch TOPICAL Q8H 01/15/18 05/22/18 History ranitidine HCl [Zantac] 150 mg PO BID 01/15/18 05/22/18 History sitagliptin-metformin [Janumet] 1 tab PO DAILY 01/15/18 05/22/18 History tamsulosin [Flomax] 0.4 mg PO HS 01/15/18 05/22/18 History Physical Exam Vital signs: Vital Signs 05/28/18 02:00 05/28/18 02:57 05/28/18 03:00 Temperature Pulse Rate 72 76 74 Respiratory Rate 18 18 Blood Pressure 141/73 H Pulse Oximetry 97 05/28/18 04:00 05/28/18 05:00 05/28/18 06:00 Temperature Pulse Rate 81 76 70 Respiratory Rate Blood Pressure Pulse Oximetry 05/28/18 07:00 05/28/18 08:00 05/28/18 08:41 Temperature 98 F Pulse Rate 73 74 Respiratory Rate 18 Blood Pressure 140/71 Pulse Oximetry 99 97 93 L 05/28/18 09:00 05/28/18 10:00 05/28/18 11:00 Temperature 97.7 F Pulse Rate 76 78 77 Respiratory Rate 20 Blood Pressure 136/73 Pulse Oximetry 99 05/28/18 12:00 05/28/18 13:00 05/28/18 14:00 Temperature Pulse Rate 78 69 61 Respiratory Rate Blood Pressure Pulse Oximetry 05/28/18 15:00 05/28/18 16:00 05/28/18 17:00 Temperature 98.9 F Pulse Rate 77 76 87 Respiratory Rate 20 Blood Pressure 131/60 Pulse Oximetry 99 05/28/18 18:00 05/28/18 19:00 05/28/18 20:00 Temperature 99.4 F Pulse Rate 80 80 84 Respiratory Rate 18 20 Blood Pressure 135/72 Pulse Oximetry 96 98 05/28/18 23:00 Temperature 98.4 F Pulse Rate 82 Respiratory Rate 20 Blood Pressure 135/72 Pulse Oximetry 98 Intake & Output 05/28/18 05/28/18 05/29/18 06:59 18:59 06:59 Intake Total 580 / 580 480 / 480 Output Total 1075 / 1075 2100 / 2100 Balance -495 / -495 -1620 / -1620 Weight 105.5 kg Intake: Oral 580 / 580 480 / 480 Output: Urine Amount (Catheter) 1075 / 1075 2099 Indwelling Urethral Catheter 1075 / 1075 2099 Other: Date of Last Bowel Movement 05/25/18 05/25/18 05/25/18 # Bowel Movements 0 Narrative: GENERAL: NAD, AAOx3 SKIN: Warm and dry.. CARDIOVASCULAR: Regular rate and rhythm. RESPIRATORY: No accessory muscle use. Clear to auscultation. Breath sounds equal bilaterally. GASTROINTESTINAL: Abdomen soft, non-tender, nondistended. GENITOURINARY: Indwelling Chung catheter. Scrotal edema. MUSCULOSKELETAL: Extremities without clubbing, cyanosis. 1+ pitting edema. No obvious deformities. NEUROLOGICAL: Awake and alert. No obvious cranial nerve deficits. - Urinary Catheter Management Indwelling Urethral Catheter Cath placed during this visit: yes Reason for continuing: Hourly intake/output Insertion date: 05/22/18 Insertion time: 12:37 Results 05/25/18 05:43 05/28/18 04:26 Comprehensive Metabolic Panel 05/27/18 05/28/18 Range/Units 06:10 04:26 Sodium 140 141 (136-145) meq/L Potassium 4.8 4.4 (3.5-5.1) meq/L Chloride 103 102 (98-107) meq/L Carbon Dioxide 33.2 H 33.8 H (21.0-32.0) meq/L BUN 42 H 41 H (7-18) mg/dL Creatinine 1.97 H 1.87 H (0.60-1.30) mg/dL Calcium 8.5 8.1 L (8.5-10.1) mg/dL Intake and Output 05/28/18 05/28/18 05/29/18 14:59 22:59 06:59 Intake Total 480 / 480 Output Total 2099 Balance -1620 / -1620 Intake: Oral 480 / 480 Output: Urine Amount (Catheter) 2099 Indwelling Urethral Catheter 2099 Other: Date of Last Bowel Movement 05/25/18 05/25/18 05/25/18 # Bowel Movements 0 - Imaging and Cardiology Imaging: Impressions Myocardial Perfusion Scan Nuc Med 05/26/18 00:00 CONCLUSION: 1. Significantly diminished perfusion involving the LAD and RCA territories has the appearance of myocardial infarction. The only part of the myocardium that appears viable is anterolateral wall. Assessment and Plan - Assessment (1) Ischemic cardiomyopathy Code(s): I25.5 - Ischemic cardiomyopathy Status: Acute Plan: ef < 20%, on rené/bb;for nuclear viability study today(cr too high for MRI), if some viability would recommend cabg. (2) CHF (congestive heart failure), NYHA class IV Code(s): I50.9 - Heart failure, unspecified Status: Acute Plan: improving on lasix (3) Edema Code(s): R60.9 - Edema, unspecified Status: Acute (4) Cardiorenal syndrome Code(s): I13.10 - Hypertensive heart and chronic kidney disease without heart failure, with stage 1 through stage 4 chronic kidney disease, or unspecified chronic kidney disease Status: Acute Plan: has diuresed some (though still overloaded), though now with worsening cr; will ask for renal assistance. - Plan 1. Ischemic cardiomyopathy Previous EF 20%, new echo read as EF 50%, but visually around 35% 2. Chronic systolic congestive heart failure. Diuresed well Edema improved 3. Severe multivessel coronary disease. Nuclear stress test showing multiple areas of infarction Viability showing some infarct, but anterior and inferior harrison other than apex appear possibly viable Discussed with CT surgery Consideration of SNF to get stronger then for CABG Needs diabetes control 4. Hypertension. 5. Hyperlipidemia (2) CHF (congestive heart failure), NYHA class IV Qualifiers: Congestive heart failure type: combined Congestive heart failure chronicity: acute on chronic Qualified Code(s): I50.43 - Acute on chronic combined systolic (congestive) and diastolic (congestive) heart failure
[2018-05-29] MEDS ORDERED: Pregabalin 25 MG Capsule PO ONE (02:15)
[2018-05-29] MEDS: Insulin NovoLOG Aspart Correctional Sugar Inj SQ SCH ×5 (03:57→20:45)
[2018-05-29] MEDS: Pregabalin 75 MG Capsule PO SCH ×2 (08:34→20:44)
[2018-05-29] MEDS: Insulin Detemir Inj 1,000 UNIT/10 ML Vial SQ SCH ×2 (08:34→20:42)
[2018-05-29] MEDS: Enoxaparin Inj 30 MG/0.3 ML Syringe SQ SCH (08:34)
[2018-05-29] MEDS: Senna/Docusate Sodium 8.6/50 MG Tablet PO SCH ×2 (08:34→20:44)
[2018-05-29] MEDS: Lisinopril 5 MG Tablet PO SCH (08:34)
[2018-05-29] MEDS: Famotidine 20 MG Tablet PO SCH ×2 (08:34→20:44)
[2018-05-29] MEDS: Carvedilol 12.5 MG Tablet PO SCH ×2 (08:35→20:44)
[2018-05-29] MEDS: Budesonide-Formoterol 160/4.5 MCG 6 GM Inhaler INH SCH ×2 (08:41→20:55)
[2018-05-29 09:48] LABS: Calcium 8.6 mg/dL (8.5-10.1); Carbon Dioxide 35.2 meq/L (21.0-32.0); Potassium 4.4 meq/L (3.5-5.1)
[2018-05-29] MEDS ORDERED: Gabapentin 300 MG Capsule PO ONE (09:59)
--- NOTE | 2018-05-29 10:30 | P.PNFP ---
Subjective Interval history: Patient was seen at bedside this morning. Patient reports improvement in his breathing but now reports increased neuropathic pain particularly in his legs now that the swelling is going down. He requests to be started on gabapentin for his pain. Patient also reports pain and soreness at the glans of the penis specifially the urethral meatus where a Chung catheter is currently inserted. Although he is in pain he requests that his Chung be kept in as he believes urination from difficult given his scrotal swelling. He also reports continued discomfort in the scrotum due to the edema. Plan to continue diuresis was discussed with patient who reported understanding and agreed with plan. He had no further questions and thanked us for our care. <Joshua Shah - 05/29/18 10:55> Results - Labs Result diagrams: 05/25/18 05:43 05/29/18 07:40 <Jose Monroe - 05/29/18 17:47> Abnormal lab results 05/28/18 05/29/18 05/29/18 Range/Units 21:12 07:40 07:40 Carbon Dioxide 35.2 H (21.0-32.0) meq/L BUN 44 H (7-18) mg/dL Creatinine 1.99 H (0.60-1.30) mg/dL Estimated GFR 34 L (>89) mL/min POC Glucose 277 H (68-110) mg/dl B-Natriuretic Peptide 1387 H (0-100) pg/mL 05/29/18 05/29/18 Range/Units 11:29 17:02 Carbon Dioxide (21.0-32.0) meq/L BUN (7-18) mg/dL Creatinine (0.60-1.30) mg/dL Estimated GFR (>89) mL/min POC Glucose 167 H 243 H (68-110) mg/dl B-Natriuretic Peptide (0-100) pg/mL BMP 05/29/18 07:40 Sodium 140 Potassium 4.4 Chloride 98 Carbon Dioxide 35.2 H BUN 44 H Creatinine 1.99 H Calcium 8.6 <Jose Monroe - 05/29/18 17:47> Abnormal lab results 05/28/18 05/28/18 05/28/18 Range/Units 11:58 16:15 21:12 Carbon Dioxide (21.0-32.0) meq/L BUN (7-18) mg/dL Creatinine (0.60-1.30) mg/dL Estimated GFR (>89) mL/min POC Glucose 175 H 257 H 277 H (68-110) mg/dl B-Natriuretic Peptide (0-100) pg/mL 05/29/18 05/29/18 Range/Units 07:40 07:40 Carbon Dioxide 35.2 H (21.0-32.0) meq/L BUN 44 H (7-18) mg/dL Creatinine 1.99 H (0.60-1.30) mg/dL Estimated GFR 34 L (>89) mL/min POC Glucose (68-110) mg/dl B-Natriuretic Peptide 1387 H (0-100) pg/mL BMP 05/29/18 07:40 Sodium 140 Potassium 4.4 Chloride 98 Carbon Dioxide 35.2 H BUN 44 H Creatinine 1.99 H Calcium 8.6 <Joshua Shah O - 05/29/18 10:30> Physical Exam Vital signs: Vital Signs 05/28/18 18:00 05/28/18 19:00 05/28/18 20:00 Temperature 99.4 F Pulse Rate 80 80 81 Respiratory Rate 18 20 Blood Pressure 135/72 Pulse Oximetry 96 98 05/28/18 21:00 05/28/18 22:00 05/28/18 23:00 Temperature 98.4 F Pulse Rate 84 100 H 80 Respiratory Rate 20 Blood Pressure 135/72 Pulse Oximetry 98 05/29/18 00:00 05/29/18 01:00 05/29/18 02:00 Temperature Pulse Rate 83 78 78 Respiratory Rate Blood Pressure Pulse Oximetry 05/29/18 03:00 05/29/18 04:00 05/29/18 05:00 Temperature 98.8 F Pulse Rate 77 78 71 Respiratory Rate 18 Blood Pressure 132/71 Pulse Oximetry 98 05/29/18 05:47 05/29/18 07:00 05/29/18 07:41 Temperature 98.7 F Pulse Rate 75 76 70 Respiratory Rate 18 Blood Pressure 111/68 Pulse Oximetry 98 05/29/18 08:00 05/29/18 08:55 05/29/18 09:00 Temperature Pulse Rate 74 74 80 Respiratory Rate 18 Blood Pressure Pulse Oximetry 94 L 05/29/18 10:00 05/29/18 11:00 05/29/18 11:26 Temperature 99.1 F Pulse Rate 78 84 53 L Respiratory Rate 18 Blood Pressure 140/57 L Pulse Oximetry 99 05/29/18 12:00 05/29/18 13:00 05/29/18 14:00 Temperature Pulse Rate 80 82 72 Respiratory Rate Blood Pressure Pulse Oximetry 05/29/18 15:00 05/29/18 15:26 Temperature 99 F Pulse Rate 73 56 L Respiratory Rate 19 Blood Pressure 137/77 Pulse Oximetry 98 Intake & Output 05/28/18 05/29/18 05/29/18 18:59 06:59 18:59 Intake Total 480 / 480 480 / 480 100 / 100 Output Total 2099 1400 / 1400 Balance -1620 / -1620 -920 / -920 100 / 100 Weight 105.9 kg Intake: IV 100 / 100 Flexbumin 25% Inj 100 ML @ 60 100 / 100 mls/hr IV.SIG Q12H [place] Rx#: [id number] Oral 480 / 480 480 / 480 Output: Urine 1400 / 1400 Urine Amount (Catheter) 2099 Indwelling Urethral Catheter 2099 Other: Date of Last Bowel Movement 05/25/18 05/25/18 05/25/18 # Bowel Movements 0 <Fer,Jsoe - 05/29/18 17:47> Vital Signs 05/28/18 11:00 05/28/18 12:00 05/28/18 13:00 Temperature 97.7 F Pulse Rate 77 78 69 Respiratory Rate 20 Blood Pressure 136/73 Pulse Oximetry 99 05/28/18 14:00 05/28/18 15:00 05/28/18 16:00 Temperature 98.9 F Pulse Rate 61 77 76 Respiratory Rate 20 Blood Pressure 131/60 Pulse Oximetry 99 05/28/18 17:00 05/28/18 18:00 05/28/18 19:00 Temperature Pulse Rate 87 80 80 Respiratory Rate 18 Blood Pressure Pulse Oximetry 96 05/28/18 20:00 05/28/18 21:00 05/28/18 22:00 Temperature 99.4 F Pulse Rate 81 84 100 H Respiratory Rate 20 Blood Pressure 135/72 Pulse Oximetry 98 05/28/18 23:00 05/29/18 00:00 05/29/18 01:00 Temperature 98.4 F Pulse Rate 80 83 78 Respiratory Rate 20 Blood Pressure 135/72 Pulse Oximetry 98 05/29/18 02:00 05/29/18 03:00 05/29/18 04:00 Temperature 98.8 F Pulse Rate 78 77 78 Respiratory Rate 18 Blood Pressure 132/71 Pulse Oximetry 98 05/29/18 05:00 05/29/18 05:47 05/29/18 07:00 Temperature Pulse Rate 71 75 76 Respiratory Rate Blood Pressure Pulse Oximetry 05/29/18 07:41 05/29/18 08:55 Temperature 98.7 F Pulse Rate 70 74 Respiratory Rate 18 18 Blood Pressure 111/68 Pulse Oximetry 98 94 L Intake & Output 05/28/18 05/29/18 05/29/18 18:59 06:59 18:59 Intake Total 480 / 480 480 / 480 Output Total 2099 1400 / 1400 Balance -1620 / -1620 -920 / -920 Weight 105.9 kg Intake: Oral 480 / 480 480 / 480 Output: Urine 1400 / 1400 Urine Amount (Catheter) 2099 Indwelling Urethral Catheter 2099 Other: Date of Last Bowel Movement 05/25/18 05/25/18 05/28/18 # Bowel Movements 0 <Joshua Shah - 05/29/18 10:30> Narrative: GENERAL: Patient lying in bed receiving paralyzed respiratory therapy. NAD, AAOx3 SKIN: Significant dryness and evidence of venous stasis on anterior shins bilaterally. HEAD: Atraumatic. Normocephalic. CARDIOVASCULAR: Regular rate and rhythm. RESPIRATORY: Wheezes appreciated in all lung watkins bilaterally. No accessory muscle use. Breath sounds equal bilaterally. GASTROINTESTINAL: Abdomen obese but soft, non-tender, less distention than previously noted. MUSCULOSKELETAL: Extremities without clubbing, cyanosis. 1+ pitting edema improving on anterior shins, dependent edema on posterior thighs. No obvious deformities. GENITOURINARY: Impressive but improved scrotal swelling, swelling extends up and around the penis to the tip of the meatus. Scrotal skin less tense than on previous exams. Patient does have evidence of erythema and irritation at the urethral meatus due to the Chung catheter. NEUROLOGICAL: Awake and alert. No obvious cranial nerve deficits. <Joshua Shah - 05/29/18 10:55> - Urinary Catheter Management Indwelling Urethral Catheter Cath placed during this visit: no <Jose Monroe - 05/29/18 17:47> yes <Joshua Shah - 05/29/18 10:55> Reason for continuing: Hourly intake/output <Joshua Shah - 05/29/18 10:30 > Insertion date: 05/22/18 <Joshua Shah - 05/29/18 10:30> Insertion time: 12:37 <Joshua Shah - 05/29/18 10:30> Assessment and Plan - Assessment (1) CHF (congestive heart failure), NYHA class IV Code(s): I50.9 - Heart failure, unspecified Status: Acute (2) COPD (chronic obstructive pulmonary disease) Code(s): J44.9 - Chronic obstructive pulmonary disease, unspecified Status: Acute (3) Ischemic cardiomyopathy Code(s): I25.5 - Ischemic cardiomyopathy Status: Acute (4) CAD (coronary artery disease) Code(s): I25.10 - Atherosclerotic heart disease of [place] coronary artery without angina pectoris Status: Acute (5) DM2 (diabetes mellitus, type 2) Code(s): E11.9 - Type 2 diabetes mellitus without complications Status: Acute (6) HTN (hypertension) Code(s): I10 - Essential (primary) hypertension Status: Acute (7) Chronic kidney disease Code(s): N18.9 - Chronic kidney disease, unspecified Status: Acute (8) Balanitis Code(s): N48.1 - Balanitis Status: Acute (9) Diabetic neuropathy Code(s): E11.40 - Type 2 diabetes mellitus with diabetic neuropathy, unspecified Status: Acute (10) Nutrition, metabolism, and development symptoms Code(s): R63.8 - Other symptoms and signs concerning food and fluid intake Status: Acute <Jose Monroe - 05/29/18 17:47> (1) CHF (congestive heart failure), NYHA class IV Code(s): I50.9 - Heart failure, unspecified Status: Acute Plan: Patient continues to improve and diurese. Significantly less edema in legs but continues to have scrotal swelling. Scrotal swelling is slightly better but still very impressive. -Con't to monitor I's and O's strictly with daily weights * Patient has an indwelling ureteral catheter 05/22 due to scrotal edema -Fluid restriction 1.5 L -Salt restriction 2 g -Continue Lasix 80 mg TID and metolazone BID Patient to be evaluated next week for possible CABG. Continue to diurese. Related consults: cardiology nephrology CV surgery (2) COPD (chronic obstructive pulmonary disease) Code(s): J44.9 - Chronic obstructive pulmonary disease, unspecified Status: Acute Plan: Patients personal consulting engineer Dr. Carlson on board. Continue Symbicort Continue Atrovent BID Albuterol PRN O2 as needed Incentive spirometry (3) Ischemic cardiomyopathy Code(s): I25.5 - Ischemic cardiomyopathy Status: Acute Plan: -EF 35%, FEV1 0.8. Poor surgical candidate. Will be evaluated possibly next or Thursday for surgical intervention. -Continue carvedilol and JEREMY inhibitor (4) CAD (coronary artery disease) Code(s): I25.10 - Atherosclerotic heart disease of [place] coronary artery without angina pectoris Status: Acute Plan: -Patient with history of previous [place] -Continue aspirin and Plavix -Continue atorvastatin 80 mg p.o. HS (5) DM2 (diabetes mellitus, type 2) Code(s): E11.9 - Type 2 diabetes mellitus without complications Status: Acute Plan: Improved control - Levemir 58 units BID - High dose SSI Con't to adjust based on requirements over the course of the day (6) HTN (hypertension) Code(s): I10 - Essential (primary) hypertension Status: Acute Plan: -Continue with carvedilol 12.5 mg twice daily -Continue Lisinopril 2.5 mg daily (7) Chronic kidney disease Code(s): N18.9 - Chronic kidney disease, unspecified Status: Acute Plan: Creatinine: stable around 1.9 GFR 36 Will require outpatient monitoring (8) Balanitis Code(s): N48.1 - Balanitis Status: Acute Plan: Patient has significant irritation and pain at the urethral meatus. Patient currently has Chung catheter in place. The patient requests that the Chung catheter be kept in place due to difficulty urinating in light of scrotal swelling. -Begin nystatin powder to affected area 4 times daily (9) Diabetic neuropathy Code(s): E11.40 - Type 2 diabetes mellitus with diabetic neuropathy, unspecified Status: Acute Plan: Patient suffers from diabetic neuropathy that is significantly increased after patient has been to diurese. Patient requests to begin gabapentin. -Begin gabapentin at 300 mg daily (10) Nutrition, metabolism, and development symptoms Code(s): R63.8 - Other symptoms and signs concerning food and fluid intake Status: Acute Plan: Fluids: Oral fluids only, restrict to 1.5 L due to CHF Electrolytes: Monitor and replete as needed Nutrition: Cardiac and diabetic diet. Salt restricted 2g daily. <Joshua Shah - 05/29/18 10:49> - Assessment and Plan 63-year-old male presented with acute on chronic CHF exacerbation. Elevated BNP with bilateral 2+ pitting edema, distended abdomen, crackles bilaterally throughout all lung watkins. Patient was started on 40 IV Lasix twice daily and improved. Cardiology consulted due to ejection fraction of less than 20% and plan to perform nuclear viability study to determine if he needs a CABG. Patient also has diabetes, on Levemir 20 units twice daily, high dose sliding scale. ACS rule out was negative. <Joshua Shah - 05/29/18 10:30> - Attending Attestation Pt. examined with medical pathologist during medical rounds this morning I have read the above note and agree with the assessment/plan as discussed with me I was involved in all medical decision making for this patient Jose Monroe MD <Jose Monroe - 05/29/18 17:47> <Joshua Shah - Last Filed: 05/29/18 10:49> (1) CHF (congestive heart failure), NYHA class IV Qualifiers: Congestive heart failure type: combined Congestive heart failure chronicity: acute on chronic Qualified Code(s): I50.43 - Acute on chronic combined systolic (congestive) and diastolic (congestive) heart failure (5) DM2 (diabetes mellitus, type 2) Qualifiers: Diabetes mellitus nursing home insulin use: with card services specialist use Diabetes mellitus complication status: with circulatory complication Diabetes mellitus complication detail: with other circulatory complications Qualified Code(s): E11.59 - Type 2 diabetes mellitus with other circulatory complications; Z79.4 - rpg developer (current) use of insulin (6) HTN (hypertension) Qualifiers: Hypertension type: essential hypertension Qualified Code(s): I10 - Essential (primary) hypertension (7) Chronic kidney disease Qualifiers: Chronic kidney disease stage: unspecified stage Qualified Code(s): N18.9 - Chronic kidney disease, unspecified <Jose Monroe - Last Filed: 05/29/18 17:47> (1) CHF (congestive heart failure), NYHA class IV Qualifiers: Congestive heart failure type: combined Congestive heart failure chronicity: acute on chronic Qualified Code(s): I50.43 - Acute on chronic combined systolic (congestive) and diastolic (congestive) heart failure (5) DM2 (diabetes mellitus, type 2) Qualifiers: Diabetes mellitus nursing home insulin use: with nursing home use Diabetes mellitus complication status: with circulatory complication Diabetes mellitus complication detail: with other circulatory complications Qualified Code(s): E11.59 - Type 2 diabetes mellitus with other circulatory complications; Z79.4 - [facility] (current) use of insulin (6) HTN (hypertension) Qualifiers: Hypertension type: essential hypertension Qualified Code(s): I10 - Essential (primary) hypertension (7) Chronic kidney disease Qualifiers: Chronic kidney disease stage: unspecified stage Qualified Code(s): N18.9 - Chronic kidney disease, unspecified <Joshua Shah - Last Filed: 05/29/18 10:49> (1) CHF (congestive heart failure), NYHA class IV Qualifiers: Congestive heart failure type: combined Congestive heart failure chronicity: acute on chronic Qualified Code(s): I50.43 - Acute on chronic combined systolic (congestive) and diastolic (congestive) heart failure (5) DM2 (diabetes mellitus, type 2) Qualifiers: Diabetes mellitus card services specialist insulin use: with card services specialist use Diabetes mellitus complication status: with circulatory complication Diabetes mellitus complication detail: with other circulatory complications Qualified Code(s): E11.59 - Type 2 diabetes mellitus with other circulatory complications; Z79.4 - [facility] (current) use of insulin (6) HTN (hypertension) Qualifiers: Hypertension type: essential hypertension Qualified Code(s): I10 - Essential (primary) hypertension (7) Chronic kidney disease Qualifiers: Chronic kidney disease stage: unspecified stage Qualified Code(s): N18.9 - Chronic kidney disease, unspecified <Jose Monroe - Last Filed: 05/29/18 17:47> (1) CHF (congestive heart failure), NYHA class IV Qualifiers: Congestive heart failure type: combined Congestive heart failure chronicity: acute on chronic Qualified Code(s): I50.43 - Acute on chronic combined systolic (congestive) and diastolic (congestive) heart failure (5) DM2 (diabetes mellitus, type 2) Qualifiers: Diabetes mellitus card services specialist insulin use: with nursing home use Diabetes mellitus complication status: with circulatory complication Diabetes mellitus complication detail: with other circulatory complications Qualified Code(s): E11.59 - Type 2 diabetes mellitus with other circulatory complications; Z79.4 - [facility] (current) use of insulin (6) HTN (hypertension) Qualifiers: Hypertension type: essential hypertension Qualified Code(s): I10 - Essential (primary) hypertension (7) Chronic kidney disease Qualifiers: Chronic kidney disease stage: unspecified stage Qualified Code(s): N18.9 - Chronic kidney disease, unspecified
--- NOTE | 2018-05-29 10:47 | P.PNNP ---
Subjective Interval history: ongoing swelling Physical Exam Vital signs: Vital Signs 05/28/18 11:00 05/28/18 12:00 05/28/18 13:00 Temperature 97.7 F Pulse Rate 77 78 69 Respiratory Rate 20 Blood Pressure 136/73 Pulse Oximetry 99 05/28/18 14:00 05/28/18 15:00 05/28/18 16:00 Temperature 98.9 F Pulse Rate 61 77 76 Respiratory Rate 20 Blood Pressure 131/60 Pulse Oximetry 99 05/28/18 17:00 05/28/18 18:00 05/28/18 19:00 Temperature Pulse Rate 87 80 80 Respiratory Rate 18 Blood Pressure Pulse Oximetry 96 05/28/18 20:00 05/28/18 21:00 05/28/18 22:00 Temperature 99.4 F Pulse Rate 81 84 100 H Respiratory Rate 20 Blood Pressure 135/72 Pulse Oximetry 98 05/28/18 23:00 05/29/18 00:00 05/29/18 01:00 Temperature 98.4 F Pulse Rate 80 83 78 Respiratory Rate 20 Blood Pressure 135/72 Pulse Oximetry 98 05/29/18 02:00 05/29/18 03:00 05/29/18 04:00 Temperature 98.8 F Pulse Rate 78 77 78 Respiratory Rate 18 Blood Pressure 132/71 Pulse Oximetry 98 05/29/18 05:00 05/29/18 05:47 05/29/18 07:00 Temperature Pulse Rate 71 75 76 Respiratory Rate Blood Pressure Pulse Oximetry 05/29/18 07:41 05/29/18 08:55 Temperature 98.7 F Pulse Rate 70 74 Respiratory Rate 18 18 Blood Pressure 111/68 Pulse Oximetry 98 94 L Intake & Output 05/28/18 05/29/18 05/29/18 18:59 06:59 18:59 Intake Total 480 / 480 480 / 480 Output Total 2099 1400 / 1400 Balance -1620 / -1620 -920 / -920 Weight 105.9 kg Intake: Oral 480 / 480 480 / 480 Output: Urine 1400 / 1400 Urine Amount (Catheter) 2099 Indwelling Urethral Catheter 2099 Other: Date of Last Bowel Movement 05/25/18 05/25/18 05/28/18 # Bowel Movements 0 - Constitutional no acute distress - Routine HEENT Exam Head: Present: normocephalic Eye: Present: EOMI ENT: Present: mucous membranes moist - Routine Neck Exam Present: supple - Routine Respiratory Exam Present: decreased breath sounds - Routine Cardiovascular Exam Present: RRR - Routine Abdominal Exam Present: soft - Routine Skin Exam Present: intact - Routine Neurological Exam Present: alert, oriented X3 - Detailed Neurological Exam: Coma Scale Eye Opening: Spontaneous - Routine Psychiatric Exam Present: normal affect - Urinary Catheter Management Indwelling Urethral Catheter Cath placed during this visit: yes Reason for continuing: Hourly intake/output Insertion date: 05/22/18 Insertion time: 12:37 Assessment and Plan - Assessment (1) Acute kidney injury superimposed on chronic kidney disease Code(s): N17.9 - Acute kidney failure, unspecified; N18.9 - Chronic kidney disease, unspecified Status: Acute Plan: Creatinine stable: 1.8 -> 1.9 Continue Lasix 80mg IV TID and Metolazone 2.5mg BID for diuresis, 2L UOP/24 hours Albumin level 2.0: Will add albumin infusion to help mobilize fluids for diuresis. Patient reports edema is improving, has ongoing scrotal edema If little improvement, will change diuretics to continues infusion - follow AM labs. Follow the urine out put and BMP. (2) Hyperlipidemia Code(s): E78.5 - Hyperlipidemia, unspecified Status: Acute Qualifiers: Qualified Code(s): E78.5 - Hyperlipidemia, unspecified Plan: On atorvastatin (3) Edema Code(s): R60.9 - Edema, unspecified Status: Acute Plan: Continue lasix maintain strict I+O Daily weights Low sodium diet. (4) DM2 (diabetes mellitus, type 2) Code(s): E11.9 - Type 2 diabetes mellitus without complications Status: Acute Qualifiers: Qualified Code(s): E11.59 - Type 2 diabetes mellitus with other circulatory complications; Z79.4 - group home (current) use of insulin Plan: Maintain blood sugars between 140 mg/dl to 180 mg/dl while hospitalized. Elevated at times. (5) CHF (congestive heart failure), NYHA class IV Code(s): I50.9 - Heart failure, unspecified Status: Acute Qualifiers: Qualified Code(s): I50.43 - Acute on chronic combined systolic (congestive) and diastolic (congestive) heart failure Plan: On lasix, patient reports that edema is improving. (6) Elevated troponin Code(s): R74.8 - Abnormal levels of other serum enzymes Status: Acute Plan: Cardiology following
[2018-05-29] MEDS: Albumin Human 25% Inj 100 ML IV.SIG SCH (12:14)
[2018-05-29] MEDS: Nystatin 100,000 UNITS/GM Powder 15 GM Bottle TOPICAL SCH ×3 (13:43→20:45)
--- NOTE | 2018-05-29 14:46 | P.PNCA ---
Subjective Interval history: No events overnight Biggest complaint is his scrotal edema Medications and Allergies Active Medications: Active Medications Acetaminophen (Tylenol) 650 mg PO Q4H PRN PRN Reason: Temp > 100.4, Pain scale 1-2 Last Admin: 05/28/18 09:20 Dose: 650 mg Hydrocodone Bitart/Acetaminophen ([place] 10/325) 1 tab PO Q6H PRN PRN Reason: Pain scale 3-10 Last Admin: 05/29/18 13:43 Dose: 1 tab Al Hydroxide/Mg Hydroxide (Milk Of Cheryl Likarla) 30 ml PO Q12H PRN PRN Reason: Mild Constipation Albuterol (Duoneb Neb ([facility])) 1 ampul NEB Q6HR WHILE AWAKE NEB [facility] Last Admin: 05/29/18 14:19 Dose: 1 ampul Aspirin (Ecotrin) 81 mg PO DAILY [facility] Last Admin: 05/29/18 08:35 Dose: 81 mg Atorvastatin Calcium (Lipitor) 80 mg PO HS [facility] Last Admin: 05/28/18 21:54 Dose: 80 mg Benzonatate (Tessalon Perles) 100 mg PO Q8H PRN PRN Reason: COUGH Last Admin: 05/25/18 23:59 Dose: 100 mg Bisacodyl (Dulcolax Supp) 10 mg RECTAL DAILY PRN PRN Reason: SEVERE CONSITIPATION Budesonide/Formoterol Fumarate (Symbicort 160/4.5 Mcg Inh) 2 puff INH BID [facility] Last Admin: 05/29/18 08:41 Dose: 2 puff Carvedilol (Coreg) 12.5 mg PO BID [facility] Last Admin: 05/29/18 08:35 Dose: 12.5 mg Clopidogrel Bisulfate (Plavix) 75 mg PO DAILY [facility] Last Admin: 05/29/18 08:34 Dose: 75 mg Dextrose (D50w Vial) 50 ml IV.PUSH UNSCH PRN PRN Reason: PER HYPOGLYCEMIA PROTOCOL Enoxaparin Sodium (Lovenox Inj) 30 mg SQ DAILY [facility] Last Admin: 05/29/18 08:34 Dose: 30 mg Famotidine (Pepcid) 10 mg PO BID [facility] Last Admin: 05/29/18 08:34 Dose: 10 mg Fluticasone Propionate (Flonase Nasal [place]) 1 spray NASAL BID [facility] Last Admin: 05/29/18 08:41 Dose: 1 spray Furosemide (Lasix Inj) 80 mg IV.PUSH TID [facility] Last Admin: 05/29/18 13:43 Dose: 80 mg Glucagon (Glucagon Inj) 1 mg OTHER PRN PRN PRN Reason: for Hypoglycemia Protocol Albumin Human (Flexbumin 25% Inj) 100 mls @ 60 mls/hr IV.SIG Q12H [facility] Last Admin: 05/29/18 12:14 Dose: 60 mls/hr Insulin Aspart (Novolog Insulin [employer] [employer] Inj) 0 unit SQ ACHS AND 3AM [place]; Protocol Last Admin: 05/29/18 12:14 Dose: 5 unit Insulin Detemir (Levemir Inj) 58 unit SQ BID [facility] Last Admin: 05/29/18 08:34 Dose: 58 unit Lactulose (Lactulose Liq) 30 ml PO DAILY PRN PRN Reason: SEVERE CONSITIPATION Lisinopril (Prinivil) 2.5 mg PO DAILY [facility] Last Admin: 05/29/18 08:34 Dose: 2.5 mg Metolazone (Zaroxolyn) 2.5 mg PO BID [facility] Last Admin: 05/29/18 08:35 Dose: 2.5 mg Nystatin (Mycostatin Powder) 1 applicatio TOPICAL QID [facility] Last Admin: 05/29/18 13:43 Dose: 1 applicatio Ondansetron HCl (Zofran Inj) 4 mg IV.PUSH Q6H PRN PRN Reason: NAUSEA OR VOMITING Pregabalin (Lyrica) 75 mg PO BID [facility] Last Admin: 05/29/18 08:34 Dose: 75 mg Senna/Docusate Sodium (Abiola-Colace) 1 tab PO BID [facility] Last Admin: 05/29/18 08:34 Dose: 1 tab Sennosides (Senokot) 17.2 mg PO Q12H PRN PRN Reason: Moderate Constipation Sodium Chloride (Ns Flush) 2 ml IV.FLUSH PRN PRN PRN Reason: FLUSH AFTER USING IV ACCESS Sodium Chloride (Ns Flush) 2 ml IV.FLUSH BID [facility] Last Admin: 05/29/18 08:35 Dose: 2 ml Tamsulosin HCl (Flomax) 0.4 mg PO HS [facility] Last Admin: 05/28/18 21:54 Dose: 0.4 mg Allergies Allergy/AdvReac Type Severity Reaction Status Date / Time No Known Allergies Allergy Verified 03/27/18 10:29 Home Medications Medication Instructions Recorded Confirmed Type hydrocodone-acetaminophen [[place]] 1 tab PO Q6H 01/15/18 05/22/18 History insulin regular human [Humulin R 1 sliding scale dose SUB-Q UD 01/15/18 History Regular U-100 Insuln] lidocaine [Lidocaine Pain Relief] 1 patch TOPICAL Q8H 01/15/18 05/22/18 History ranitidine HCl [Zantac] 150 mg PO BID 01/15/18 05/22/18 History sitagliptin-metformin [Janumet] 1 tab PO DAILY 01/15/18 05/22/18 History tamsulosin [Flomax] 0.4 mg PO HS 01/15/18 05/22/18 History Physical Exam Vital signs: Vital Signs 05/28/18 15:00 05/28/18 16:00 05/28/18 17:00 Temperature 98.9 F Pulse Rate 77 76 87 Respiratory Rate 20 Blood Pressure 131/60 Pulse Oximetry 99 05/28/18 18:00 05/28/18 19:00 05/28/18 20:00 Temperature 99.4 F Pulse Rate 80 80 81 Respiratory Rate 18 20 Blood Pressure 135/72 Pulse Oximetry 96 98 05/28/18 21:00 05/28/18 22:00 05/28/18 23:00 Temperature 98.4 F Pulse Rate 84 100 H 80 Respiratory Rate 20 Blood Pressure 135/72 Pulse Oximetry 98 05/29/18 00:00 05/29/18 01:00 05/29/18 02:00 Temperature Pulse Rate 83 78 78 Respiratory Rate Blood Pressure Pulse Oximetry 05/29/18 03:00 05/29/18 04:00 05/29/18 05:00 Temperature 98.8 F Pulse Rate 77 78 71 Respiratory Rate 18 Blood Pressure 132/71 Pulse Oximetry 98 05/29/18 05:47 05/29/18 07:00 05/29/18 07:41 Temperature 98.7 F Pulse Rate 75 76 70 Respiratory Rate 18 Blood Pressure 111/68 Pulse Oximetry 98 05/29/18 08:00 05/29/18 08:55 05/29/18 09:00 Temperature Pulse Rate 74 74 80 Respiratory Rate 18 Blood Pressure Pulse Oximetry 94 L 05/29/18 10:00 05/29/18 11:00 05/29/18 11:26 Temperature 99.1 F Pulse Rate 78 84 53 L Respiratory Rate 18 Blood Pressure 140/57 L Pulse Oximetry 99 05/29/18 12:00 05/29/18 13:00 Temperature Pulse Rate 80 82 Respiratory Rate Blood Pressure Pulse Oximetry Intake & Output 05/28/18 05/29/18 05/29/18 18:59 06:59 18:59 Intake Total 480 / 480 480 / 480 Output Total 2099 1400 / 1400 Balance -1620 / -1620 -920 / -920 Weight 105.9 kg Intake: Oral 480 / 480 480 / 480 Output: Urine 1400 / 1400 Urine Amount (Catheter) 2099 Indwelling Urethral Catheter 2099 Other: Date of Last Bowel Movement 05/25/18 05/25/18 05/25/18 # Bowel Movements 0 Narrative: GENERAL: Patient lying in bed receiving paralyzed respiratory therapy. NAD, AAOx3 SKIN: Significant dryness and evidence of venous stasis on anterior shins bilaterally. HEAD: Atraumatic. Normocephalic. CARDIOVASCULAR: Regular rate and rhythm. RESPIRATORY: Wheezes appreciated in all lung watkins bilaterally. No accessory muscle use. Breath sounds equal bilaterally. GASTROINTESTINAL: Abdomen obese but soft, non-tender, less distention than previously noted. MUSCULOSKELETAL: Extremities without clubbing, cyanosis. 1+ pitting edema improving on anterior shins, dependent edema on posterior thighs. No obvious deformities. GENITOURINARY: Impressive but improved scrotal swelling, swelling extends up and around the penis to the tip of the meatus. Scrotal skin less tense than on previous exams. Patient does have evidence of erythema and irritation at the urethral meatus due to the Chung catheter. NEUROLOGICAL: Awake and alert. No obvious cranial nerve deficits. - Urinary Catheter Management Indwelling Urethral Catheter Cath placed during this visit: yes Reason for continuing: Hourly intake/output Insertion date: 05/22/18 Insertion time: 12:37 Results 05/25/18 05:43 05/29/18 07:40 Cardiac Enzymes 05/29/18 Range/Units 07:40 B-Natriuretic Peptide 1387 H (0-100) pg/mL Coagulation 05/29/18 Range/Units 07:40 B-Natriuretic Peptide 1387 H (0-100) pg/mL Comprehensive Metabolic Panel 05/28/18 05/29/18 Range/Units 04:26 07:40 Sodium 141 140 (136-145) meq/L Potassium 4.4 4.4 (3.5-5.1) meq/L Chloride 102 98 (98-107) meq/L Carbon Dioxide 33.8 H 35.2 H (21.0-32.0) meq/L BUN 41 H 44 H (7-18) mg/dL Creatinine 1.87 H 1.99 H (0.60-1.30) mg/dL Calcium 8.1 L 8.6 (8.5-10.1) mg/dL Intake and Output 05/28/18 05/29/18 05/29/18 22:59 06:59 14:59 Intake Total 480 / 480 480 / 480 Output Total 2099 1400 / 1400 Balance -1620 / -1620 -920 / -920 Intake: Oral 480 / 480 480 / 480 Output: Urine 1400 / 1400 Urine Amount (Catheter) 2099 Indwelling Urethral Catheter 2099 Other: Date of Last Bowel Movement 05/25/18 05/25/18 05/25/18 # Bowel Movements 0 Weight 105.9 kg Assessment and Plan - Assessment (1) Ischemic cardiomyopathy Code(s): I25.5 - Ischemic cardiomyopathy Status: Acute Plan: ef < 20%, on rené/bb;for nuclear viability study today(cr too high for MRI), if some viability would recommend cabg. (2) CHF (congestive heart failure), NYHA class IV Code(s): I50.9 - Heart failure, unspecified Status: Acute Plan: improving on lasix (3) Edema Code(s): R60.9 - Edema, unspecified Status: Acute (4) Cardiorenal syndrome Code(s): I13.10 - Hypertensive heart and chronic kidney disease without heart failure, with stage 1 through stage 4 chronic kidney disease, or unspecified chronic kidney disease Status: Acute Plan: has diuresed some (though still overloaded), though now with worsening cr; will ask for renal assistance. - Plan 1. Ischemic cardiomyopathy Previous EF 20%, new echo read as EF 50%, but visually around 35% 2. Chronic systolic congestive heart failure. Diuresed well Edema improved BNP decreasing 3. Severe multivessel coronary disease. Nuclear stress test showing multiple areas of infarction Viability showing some infarct, but anterior and inferior harrison other than apex appear possibly viable Discussed with CT surgery Consideration of SNF to get stronger then for CABG Needs diabetes control 4. Hypertension. 5. Hyperlipidemia (2) CHF (congestive heart failure), NYHA class IV Qualifiers: Congestive heart failure type: combined Congestive heart failure chronicity: acute on chronic Qualified Code(s): I50.43 - Acute on chronic combined systolic (congestive) and diastolic (congestive) heart failure
[2018-05-30] MEDS: Albumin Human 25% Inj 100 ML IV.SIG SCH ×3 (00:15→23:00)
[2018-05-30] MEDS: Insulin NovoLOG Aspart Correctional Sugar Inj SQ SCH ×5 (03:07→21:02)
[2018-05-30 08:53] LABS: Baso % (Auto) 0.6 % (0.0-2.0); Eos # (Auto) 0.2 th/mm3 (0.0-0.4); Eos % (Auto) 3.1 % (0.0-4.0); Hematocrit 25.3 % (39.0-51.0); Hemoglobin 8.5 gm/dL (13.0-17.0); Lymph # (Auto) 1.8 th/mm3 (1.0-4.8); Lymph % (Auto) 23.6 % (9.0-44.0); Mean Corpuscular HGB Conc 33.7 % (32.0-36.0); Mean Corpuscular Hemoglobin 29.9 pg (27.0-34.0); Mean Platelet Volume 7.9 fL (7.0-11.0); Mono % (Auto) 13.4 % (0.0-8.0); Neut # (Auto) 4.5 th/mm3 (1.8-7.7); Neut % (Auto) 59.3 % (16.0-70.0); Platelet Count 246 th/mm3 (150-450); Red Blood Count 2.85 mil/mm3 (4.50-5.90); Red Cell Distribution Width 15.8 % (11.6-17.2); White Blood Count 7.6 th/mm3 (4.0-11.0)
[2018-05-30] MEDS: Senna/Docusate Sodium 8.6/50 MG Tablet PO SCH ×2 (09:04→20:44)
[2018-05-30] MEDS: Enoxaparin Inj 30 MG/0.3 ML Syringe SQ SCH (09:04)
[2018-05-30] MEDS: Lisinopril 5 MG Tablet PO SCH (09:05)
[2018-05-30] MEDS: Pregabalin 75 MG Capsule PO SCH ×2 (09:05→20:44)
[2018-05-30] MEDS: Famotidine 20 MG Tablet PO SCH ×2 (09:05→20:45)
[2018-05-30] MEDS: Insulin Detemir Inj 1,000 UNIT/10 ML Vial SQ SCH ×2 (09:05→20:51)
[2018-05-30] MEDS: Carvedilol 12.5 MG Tablet PO SCH ×2 (09:05→20:44)
[2018-05-30 09:08] LABS: Albumin 2.9 g/dL (3.4-5.0); Anion Gap 6 meq/L (5-15); Aspartate Aminotransferase 36 U/L (15-37); Blood Urea Nitrogen 53 mg/dL (7-18); Calcium 8.7 mg/dL (8.5-10.1); Carbon Dioxide 34.6 meq/L (21.0-32.0); Chloride 98 meq/L (98-107); Glomerular Filtration Rate 27 mL/min (>89); Glucose,Random 54 mg/dL (74-106); Magnesium 2.3 mg/dL (1.5-2.5); Potassium 4.6 meq/L (3.5-5.1); Sodium 139 meq/L (136-145)
[2018-05-30 09:09] LABS: Alanine Aminotransferase 35 U/L (12-78); Phosphorus 4.6 mg/dL (2.5-4.9)
[2018-05-30] MEDS: Budesonide-Formoterol 160/4.5 MCG 6 GM Inhaler INH SCH ×2 (09:09→20:43)
[2018-05-30] MEDS: Nystatin 100,000 UNITS/GM Powder 15 GM Bottle TOPICAL SCH ×4 (09:10→20:43)
[2018-05-30 09:11] LABS: Alkaline Phosphatase 225 U/L (45-117)
--- NOTE | 2018-05-30 10:29 | P.PNFP ---
Subjective Interval history: Patient seen at bedside this morning. Patient reports that he continues to have significant neuropathic pain in his legs and requests an increase in his gabapentin dose. Patient also reports breathing well and experiencing less pain in his scrotum. He does however continue to experience some soreness at the urethral meatus. Plan to continue diuresis was discussed with patient and agrees that his scrotal swelling still requires offloading of fluid. Patient reports understanding and had no further questions. <Gavino SchmittJoshua Bettina - 05/30/18 10:29> Results - Labs Result diagrams: 05/30/18 08:33 05/30/18 08:33 <Jose Monroe - 05/30/18 22:19> Abnormal lab results 05/30/18 05/30/18 05/30/18 Range/Units 03:00 08:33 08:33 RBC 2.85 L (4.50-5.90) mil/mm3 Hgb 8.5 L (13.0-17.0) gm/dL Hct 25.3 L (39.0-51.0) % Chambers % (Auto) 13.4 H (0.0-8.0) % Chambers # (Auto) 1.0 H (0.0-0.9) th/mm3 Carbon Dioxide 34.6 H (21.0-32.0) meq/L BUN 53 H (7-18) mg/dL Creatinine 2.43 H (0.60-1.30) mg/dL Estimated GFR 27 L (>89) mL/min POC Glucose 115 H (68-110) mg/dl Random Glucose 54 L (74-106) mg/dL Alkaline Phosphatase 225 H (45-117) U/L Albumin 2.9 L (3.4-5.0) g/dL 05/30/18 05/30/18 05/30/18 Range/Units 11:46 16:28 20:51 RBC (4.50-5.90) mil/mm3 Hgb (13.0-17.0) gm/dL Hct (39.0-51.0) % Chambers % (Auto) (0.0-8.0) % Chambers # (Auto) (0.0-0.9) th/mm3 Carbon Dioxide (21.0-32.0) meq/L BUN (7-18) mg/dL Creatinine (0.60-1.30) mg/dL Estimated GFR (>89) mL/min POC Glucose 125 H 201 H 193 H (68-110) mg/dl Random Glucose (74-106) mg/dL Alkaline Phosphatase (45-117) U/L Albumin (3.4-5.0) g/dL Short CBC 05/30/18 Range/Units 08:33 WBC 7.6 (4.0-11.0) th/mm3 Hgb 8.5 L (13.0-17.0) gm/dL Hct 25.3 L (39.0-51.0) % Plt Count 246 (150-450) th/mm3 BMP 05/30/18 08:33 Sodium 139 Potassium 4.6 Chloride 98 Carbon Dioxide 34.6 H BUN 53 H Creatinine 2.43 H Calcium 8.7 Liver Function 05/30/18 Range/Units 08:33 Total Bilirubin 0.3 (0.2-1.0) mg/dL AST 36 (15-37) U/L ALT 35 (12-78) U/L Alkaline Phosphatase 225 H (45-117) U/L Albumin 2.9 L (3.4-5.0) g/dL <Jose Monroe - 05/30/18 22:19> Abnormal lab results 05/29/18 05/29/18 05/29/18 Range/Units 11:29 17:02 19:56 RBC (4.50-5.90) mil/mm3 Hgb (13.0-17.0) gm/dL Hct (39.0-51.0) % Chambers % (Auto) (0.0-8.0) % Chambers # (Auto) (0.0-0.9) th/mm3 Carbon Dioxide (21.0-32.0) meq/L BUN (7-18) mg/dL Creatinine (0.60-1.30) mg/dL Estimated GFR (>89) mL/min POC Glucose 167 H 243 H 235 H (68-110) mg/dl Random Glucose (74-106) mg/dL Alkaline Phosphatase (45-117) U/L Albumin (3.4-5.0) g/dL 05/30/18 05/30/18 05/30/18 Range/Units 03:00 08:33 08:33 RBC 2.85 L (4.50-5.90) mil/mm3 Hgb 8.5 L (13.0-17.0) gm/dL Hct 25.3 L (39.0-51.0) % Chambers % (Auto) 13.4 H (0.0-8.0) % Chambers # (Auto) 1.0 H (0.0-0.9) th/mm3 Carbon Dioxide 34.6 H (21.0-32.0) meq/L BUN 53 H (7-18) mg/dL Creatinine 2.43 H (0.60-1.30) mg/dL Estimated GFR 27 L (>89) mL/min POC Glucose 115 H (68-110) mg/dl Random Glucose 54 L (74-106) mg/dL Alkaline Phosphatase 225 H (45-117) U/L Albumin 2.9 L (3.4-5.0) g/dL Short CBC 05/30/18 Range/Units 08:33 WBC 7.6 (4.0-11.0) th/mm3 Hgb 8.5 L (13.0-17.0) gm/dL Hct 25.3 L (39.0-51.0) % Plt Count 246 (150-450) th/mm3 BMP 05/30/18 08:33 Sodium 139 Potassium 4.6 Chloride 98 Carbon Dioxide 34.6 H BUN 53 H Creatinine 2.43 H Calcium 8.7 Liver Function 05/30/18 Range/Units 08:33 Total Bilirubin 0.3 (0.2-1.0) mg/dL AST 36 (15-37) U/L ALT 35 (12-78) U/L Alkaline Phosphatase 225 H (45-117) U/L Albumin 2.9 L (3.4-5.0) g/dL <Joshua Shah O - 05/30/18 10:29> Physical Exam Vital signs: Vital Signs 05/29/18 23:00 05/30/18 00:00 05/30/18 00:16 Temperature 99 F Pulse Rate 76 71 61 Respiratory Rate 24 Blood Pressure 140/65 Pulse Oximetry 94 L 05/30/18 01:00 05/30/18 02:00 05/30/18 03:00 Temperature Pulse Rate 74 72 78 Respiratory Rate Blood Pressure Pulse Oximetry 05/30/18 03:04 05/30/18 03:07 05/30/18 04:00 Temperature 98 F Pulse Rate 71 78 Respiratory Rate 20 20 Blood Pressure 139/62 Pulse Oximetry 94 L 05/30/18 05:00 05/30/18 06:00 05/30/18 07:00 Temperature Pulse Rate 70 70 71 Respiratory Rate Blood Pressure Pulse Oximetry 05/30/18 08:00 05/30/18 08:17 05/30/18 09:00 Temperature 98.4 F Pulse Rate 68 73 76 Respiratory Rate 18 Blood Pressure 130/75 Pulse Oximetry 98 05/30/18 10:00 05/30/18 10:35 05/30/18 11:00 Temperature Pulse Rate 72 75 76 Respiratory Rate 18 Blood Pressure Pulse Oximetry 05/30/18 11:42 05/30/18 12:00 05/30/18 12:58 Temperature 98.1 F Pulse Rate 78 76 79 Respiratory Rate 18 18 Blood Pressure 136/72 Pulse Oximetry 97 05/30/18 13:00 05/30/18 14:00 05/30/18 15:00 Temperature Pulse Rate 76 66 72 Respiratory Rate Blood Pressure Pulse Oximetry 05/30/18 15:25 05/30/18 16:00 05/30/18 17:00 Temperature 98.3 F Pulse Rate 51 L 74 76 Respiratory Rate 18 Blood Pressure 153/71 H Pulse Oximetry 98 05/30/18 18:00 05/30/18 19:00 05/30/18 19:38 Temperature 97.8 F Pulse Rate 78 85 50 L Respiratory Rate 18 17 Blood Pressure 140/57 L Pulse Oximetry 99 98 05/30/18 20:12 05/30/18 20:47 05/30/18 21:00 Temperature Pulse Rate 79 74 Respiratory Rate 18 Blood Pressure Pulse Oximetry 05/30/18 22:00 Temperature Pulse Rate 74 Respiratory Rate Blood Pressure Pulse Oximetry Intake & Output 05/30/18 05/30/18 05/31/18 06:59 18:59 06:59 Intake Total 680 / 680 700 / 700 Output Total 650 / 650 1300 / 1300 Balance 30 / 30 -600 / -600 Weight 103 kg Intake: IV 100 / 100 100 / 100 Flexbumin 25% Inj 100 ML @ 60 100 / 100 100 / 100 mls/hr IV.SIG Q12H [facility] Rx#: [id number] Oral 480 / 480 600 / 600 Other 100 / 100 Output: Urine Amount (Catheter) 650 / 650 1300 / 1300 Indwelling Urethral Catheter 650 / 650 1300 / 1300 Other: Other Intake Source Saline Solution Date of Last Bowel Movement 05/28/18 05/28/18 05/28/18 # Bowel Movements 0 <FerJose - 05/30/18 22:19> Vital Signs 05/29/18 11:00 05/29/18 11:26 05/29/18 12:00 Temperature 99.1 F Pulse Rate 84 53 L 80 Respiratory Rate 18 Blood Pressure 140/57 L Pulse Oximetry 99 05/29/18 13:00 05/29/18 14:00 05/29/18 15:00 Temperature Pulse Rate 82 72 73 Respiratory Rate Blood Pressure Pulse Oximetry 05/29/18 15:26 05/29/18 16:00 05/29/18 17:00 Temperature 99 F Pulse Rate 56 L 78 80 Respiratory Rate 19 Blood Pressure 137/77 Pulse Oximetry 98 05/29/18 18:00 05/29/18 19:00 05/29/18 19:43 Temperature 98.2 F Pulse Rate 80 78 49 L Respiratory Rate 20 22 Blood Pressure 115/54 L Pulse Oximetry 96 97 05/29/18 20:00 05/29/18 20:43 05/29/18 21:00 Temperature Pulse Rate 78 71 Respiratory Rate 20 Blood Pressure Pulse Oximetry 05/29/18 22:00 05/29/18 23:00 05/30/18 00:00 Temperature Pulse Rate 71 76 71 Respiratory Rate Blood Pressure Pulse Oximetry 05/30/18 00:16 05/30/18 01:00 05/30/18 02:00 Temperature 99 F Pulse Rate 61 74 72 Respiratory Rate 24 Blood Pressure 140/65 Pulse Oximetry 94 L 05/30/18 03:00 05/30/18 03:04 05/30/18 03:07 Temperature 98 F Pulse Rate 78 71 Respiratory Rate 20 20 Blood Pressure 139/62 Pulse Oximetry 94 L 05/30/18 04:00 05/30/18 05:00 05/30/18 06:00 Temperature Pulse Rate 78 70 70 Respiratory Rate Blood Pressure Pulse Oximetry 05/30/18 07:00 05/30/18 08:17 Temperature 98.4 F Pulse Rate 71 73 Respiratory Rate 18 Blood Pressure 130/75 Pulse Oximetry 98 Intake & Output 05/29/18 05/30/18 05/30/18 18:59 06:59 18:59 Intake Total 820 / 820 580 / 580 Output Total 750 / 750 650 / 650 Balance 70 / 70 -70 / -70 Weight 103 kg Intake: IV 100 / 100 Flexbumin 25% Inj 100 ML @ 60 100 / 100 mls/hr IV.SIG Q12H [facility] Rx#: [id number] Oral 720 / 720 480 / 480 Other 100 / 100 Output: Urine 750 / 750 Urine Amount (Catheter) 650 / 650 Indwelling Urethral Catheter 650 / 650 Other: Other Intake Source Saline Solution Date of Last Bowel Movement 05/25/18 05/28/18 05/28/18 # Bowel Movements 0 <Mancia Joshau Schmitt Bettina - 05/30/18 10:29> Narrative: GENERAL: Patient lying in bed watching TV. NAD, AAOx3 SKIN: Significant dryness and evidence of venous stasis on anterior shins bilaterally. HEAD: Atraumatic. Normocephalic. CARDIOVASCULAR: Regular rate and rhythm. RESPIRATORY: Clear to auscultation in all lung watkins bilaterally. No accessory muscle use. Breath sounds equal bilaterally. GASTROINTESTINAL: Abdomen obese but soft, non-tender, less distention than previously noted. MUSCULOSKELETAL: Extremities without clubbing, cyanosis. 1+ pitting edema improving on anterior shins, dependent edema on posterior thighs. No obvious deformities. GENITOURINARY: Impressive but improved scrotal swelling, swelling extends up and around the penis to the tip of the meatus. Scrotal skin less tense than on previous exams. Patient does have evidence of erythema and irritation at the urethral meatus due to the Chung catheter. No erythema at the base of the glans but smegma noted. NEUROLOGICAL: Awake and alert. No obvious cranial nerve deficits. <Gavino KeshiaJoshua Bettina Rodriguez 05/30/18 10:29> - Urinary Catheter Management Indwelling Urethral Catheter Cath placed during this visit: no <Jose Monroe 05/30/18 22:19> yes <Joshua Shah 05/30/18 17:57> Reason for continuing: Acute urinary retention <Joshua Shah 05/30/18 10 :29> Insertion date: 05/22/18 <Joshua Shah 05/30/18 10:29> Insertion time: 12:37 <Joshua Shah 05/30/18 10:29> Assessment and Plan - Assessment (1) CHF (congestive heart failure), NYHA class IV Code(s): I50.9 - Heart failure, unspecified Status: Acute (2) COPD (chronic obstructive pulmonary disease) Code(s): J44.9 - Chronic obstructive pulmonary disease, unspecified Status: Acute (3) Ischemic cardiomyopathy Code(s): I25.5 - Ischemic cardiomyopathy Status: Acute (4) CAD (coronary artery disease) Code(s): I25.10 - Atherosclerotic heart disease of [place] coronary artery without angina pectoris Status: Acute (5) DM2 (diabetes mellitus, type 2) Code(s): E11.9 - Type 2 diabetes mellitus without complications Status: Acute (6) HTN (hypertension) Code(s): I10 - Essential (primary) hypertension Status: Acute (7) Chronic kidney disease Code(s): N18.9 - Chronic kidney disease, unspecified Status: Acute (8) Balanitis Code(s): N48.1 - Balanitis Status: Acute (9) Diabetic neuropathy Code(s): E11.40 - Type 2 diabetes mellitus with diabetic neuropathy, unspecified Status: Acute (10) Nutrition, metabolism, and development symptoms Code(s): R63.8 - Other symptoms and signs concerning food and fluid intake Status: Acute <Jose Monroe - 05/30/18 22:19> (1) CHF (congestive heart failure), NYHA class IV Code(s): I50.9 - Heart failure, unspecified Status: Acute Plan: Patient continues to improve and diurese. Significantly less edema in legs but continues to have scrotal swelling. Scrotal swelling better but still impressive. -Con't to monitor I's and O's strictly with daily weights * Patient has an indwelling ureteral catheter 05/22 due to scrotal edema -Fluid restriction 1.5 L -Salt restriction 2 g -Continue Lasix 80 mg TID and metolazone BID Patient to be evaluated next week for possible CABG. Continue to diurese. Related consults: cardiology nephrology CV surgery (2) COPD (chronic obstructive pulmonary disease) Code(s): J44.9 - Chronic obstructive pulmonary disease, unspecified Status: Acute Plan: Patients personal director of instructional technology Dr. Carlson on board. Continue Symbicort Continue Atrovent BID Albuterol PRN O2 as needed Incentive spirometry (3) Ischemic cardiomyopathy Code(s): I25.5 - Ischemic cardiomyopathy Status: Acute Plan: -EF 35%, FEV1 0.8. Poor surgical candidate. Will be evaluated possibly next or Thursday for surgical intervention. -Continue carvedilol and JEREMY inhibitor (4) CAD (coronary artery disease) Code(s): I25.10 - Atherosclerotic heart disease of [place] coronary artery without angina pectoris Status: Acute Plan: -Patient with history of previous CA -Continue aspirin and Plavix -Continue atorvastatin 80 mg p.o. HS (5) DM2 (diabetes mellitus, type 2) Code(s): E11.9 - Type 2 diabetes mellitus without complications Status: Acute Plan: Improved control - Levemir 58 units BID - High dose SSI Con't to adjust based on requirements over the course of the day (6) HTN (hypertension) Code(s): I10 - Essential (primary) hypertension Status: Acute Plan: -Continue with carvedilol 12.5 mg twice daily -Continue Lisinopril 2.5 mg daily (7) Chronic kidney disease Code(s): N18.9 - Chronic kidney disease, unspecified Status: Acute Plan: Creatinine: Increased 2.43 from 1.99 Continue with nephrology recommendations GFR 27 Will require outpatient monitoring (8) Balanitis Code(s): N48.1 - Balanitis Status: Acute Plan: Patient has significant irritation and pain at the urethral meatus. Patient currently has Chung catheter in place. The patient requests that the Chung catheter be kept in place due to difficulty urinating in light of scrotal swelling. -Continue nystatin powder to affected area 4 times daily (9) Diabetic neuropathy Code(s): E11.40 - Type 2 diabetes mellitus with diabetic neuropathy, unspecified Status: Acute Plan: Patient suffers from diabetic neuropathy that is significantly increased after patient has been to diurese. Patient requests to begin gabapentin. -Increase gabapentin from 300 mg daily to 600 mg 3 times daily (10) Nutrition, metabolism, and development symptoms Code(s): R63.8 - Other symptoms and signs concerning food and fluid intake Status: Acute Plan: Fluids: Oral fluids only, restrict to 1.5 L due to CHF Electrolytes: Monitor and replete as needed Nutrition: Cardiac and diabetic diet. Salt restricted 2g daily. <Joshua Shah Bettina - 05/30/18 17:57> - Assessment and Plan 63-year-old male presented with acute on chronic CHF exacerbation. Elevated BNP with bilateral 2+ pitting edema, distended abdomen, crackles bilaterally throughout all lung watkins. Patient was started on 40 IV Lasix twice daily and improved. Cardiology consulted due to ejection fraction of less than 20% and plan to perform nuclear viability study to determine if he needs a CABG. Patient also has diabetes, on Levemir 20 units twice daily, high dose sliding scale. ACS rule out was negative. <Joshua Shah Bettina - 05/30/18 10:29> <Joshua Shah Bettina - Last Filed: 05/30/18 17:57> (1) CHF (congestive heart failure), NYHA class IV Qualifiers: Congestive heart failure type: combined Congestive heart failure chronicity: acute on chronic Qualified Code(s): I50.43 - Acute on chronic combined systolic (congestive) and diastolic (congestive) heart failure (5) DM2 (diabetes mellitus, type 2) Qualifiers: Diabetes mellitus termite treater insulin use: with detention use Diabetes mellitus complication status: with circulatory complication Diabetes mellitus complication detail: with other circulatory complications Qualified Code(s): E11.59 - Type 2 diabetes mellitus with other circulatory complications; Z79.4 - longterm (current) use of insulin (6) HTN (hypertension) Qualifiers: Hypertension type: essential hypertension Qualified Code(s): I10 - Essential (primary) hypertension (7) Chronic kidney disease Qualifiers: Chronic kidney disease stage: unspecified stage Qualified Code(s): N18.9 - Chronic kidney disease, unspecified <Jose Monroe - Last Filed: 05/30/18 22:19> (1) CHF (congestive heart failure), NYHA class IV Qualifiers: Congestive heart failure type: combined Congestive heart failure chronicity: acute on chronic Qualified Code(s): I50.43 - Acute on chronic combined systolic (congestive) and diastolic (congestive) heart failure (5) DM2 (diabetes mellitus, type 2) Qualifiers: Diabetes mellitus termite treater insulin use: with detention use Diabetes mellitus complication status: with circulatory complication Diabetes mellitus complication detail: with other circulatory complications Qualified Code(s): E11.59 - Type 2 diabetes mellitus with other circulatory complications; Z79.4 - [place] (current) use of insulin (6) HTN (hypertension) Qualifiers: Hypertension type: essential hypertension Qualified Code(s): I10 - Essential (primary) hypertension (7) Chronic kidney disease Qualifiers: Chronic kidney disease stage: unspecified stage Qualified Code(s): N18.9 - Chronic kidney disease, unspecified <Gavino Joshua Schmitt O - Last Filed: 05/30/18 17:57> (1) CHF (congestive heart failure), NYHA class IV Qualifiers: Congestive heart failure type: combined Congestive heart failure chronicity: acute on chronic Qualified Code(s): I50.43 - Acute on chronic combined systolic (congestive) and diastolic (congestive) heart failure (5) DM2 (diabetes mellitus, type 2) Qualifiers: Diabetes mellitus detention insulin use: with detention use Diabetes mellitus complication status: with circulatory complication Diabetes mellitus complication detail: with other circulatory complications Qualified Code(s): E11.59 - Type 2 diabetes mellitus with other circulatory complications; Z79.4 - [place] (current) use of insulin (6) HTN (hypertension) Qualifiers: Hypertension type: essential hypertension Qualified Code(s): I10 - Essential (primary) hypertension (7) Chronic kidney disease Qualifiers: Chronic kidney disease stage: unspecified stage Qualified Code(s): N18.9 - Chronic kidney disease, unspecified <Jose Monroe - Last Filed: 05/30/18 22:19> (1) CHF (congestive heart failure), NYHA class IV Qualifiers: Congestive heart failure type: combined Congestive heart failure chronicity: acute on chronic Qualified Code(s): I50.43 - Acute on chronic combined systolic (congestive) and diastolic (congestive) heart failure (5) DM2 (diabetes mellitus, type 2) Qualifiers: Diabetes mellitus termite treater insulin use: with termite treater use Diabetes mellitus complication status: with circulatory complication Diabetes mellitus complication detail: with other circulatory complications Qualified Code(s): E11.59 - Type 2 diabetes mellitus with other circulatory complications; Z79.4 - longterm (current) use of insulin (6) HTN (hypertension) Qualifiers: Hypertension type: essential hypertension Qualified Code(s): I10 - Essential (primary) hypertension (7) Chronic kidney disease Qualifiers: Chronic kidney disease stage: unspecified stage Qualified Code(s): N18.9 - Chronic kidney disease, unspecified
[2018-05-30] MEDS: Gabapentin 300 MG Capsule PO SCH ×2 (12:30→18:02)
[2018-05-30] MEDS ORDERED: Gabapentin 300 MG Capsule PO SCH (13:00)
--- NOTE | 2018-05-30 14:02 | P.PNCA ---
Subjective Interval history: No events overnight No SOB Medications and Allergies Active Medications: Active Medications Acetaminophen (Tylenol) 650 mg PO Q4H PRN PRN Reason: Temp > 100.4, Pain scale 1-2 Last Admin: 05/28/18 09:20 Dose: 650 mg Hydrocodone Bitart/Acetaminophen ([place] 10/325) 1 tab PO Q6H PRN PRN Reason: Pain scale 3-10 Last Admin: 05/30/18 09:05 Dose: 1 tab Al Hydroxide/Mg Hydroxide (Milk Of Cheryl Cortez) 30 ml PO Q12H PRN PRN Reason: Mild Constipation Albuterol (Duoneb Neb ([facility])) 1 ampul NEB Q6HR WHILE AWAKE NEB [facility] Last Admin: 05/30/18 12:56 Dose: 1 ampul Aspirin (Ecotrin) 81 mg PO DAILY [facility] Last Admin: 05/30/18 09:05 Dose: 81 mg Atorvastatin Calcium (Lipitor) 80 mg PO HS [facility] Last Admin: 05/29/18 20:44 Dose: 80 mg Benzonatate (Tessalon Perles) 100 mg PO Q8H PRN PRN Reason: COUGH Last Admin: 05/25/18 23:59 Dose: 100 mg Bisacodyl (Dulcolax Supp) 10 mg RECTAL DAILY PRN PRN Reason: SEVERE CONSITIPATION Budesonide/Formoterol Fumarate (Symbicort 160/4.5 Mcg Inh) 2 puff INH BID [facility] Last Admin: 05/30/18 09:09 Dose: 2 puff Carvedilol (Coreg) 12.5 mg PO BID [facility] Last Admin: 05/30/18 09:05 Dose: 12.5 mg Clopidogrel Bisulfate (Plavix) 75 mg PO DAILY [facility] Last Admin: 05/30/18 09:05 Dose: 75 mg Dextrose (D50w Vial) 50 ml IV.PUSH UNSCH PRN PRN Reason: PER HYPOGLYCEMIA PROTOCOL Enoxaparin Sodium (Lovenox Inj) 30 mg SQ DAILY [facility] Last Admin: 05/30/18 09:04 Dose: 30 mg Famotidine (Pepcid) 10 mg PO BID [facility] Last Admin: 05/30/18 09:05 Dose: 10 mg Fluticasone Propionate (Flonase Nasal [place]) 1 spray NASAL BID [facility] Last Admin: 05/30/18 09:06 Dose: 1 spray Furosemide (Lasix Inj) 80 mg IV.PUSH TID [facility] Last Admin: 05/30/18 12:30 Dose: 80 mg Gabapentin (Neurontin) 600 mg PO TID [facility] Last Admin: 05/30/18 12:30 Dose: 600 mg Glucagon (Glucagon Inj) 1 mg OTHER PRN PRN PRN Reason: for Hypoglycemia Protocol Albumin Human (Flexbumin 25% Inj) 100 mls @ 60 mls/hr IV.SIG Q12H [facility] Last Infusion: 05/30/18 13:33 Dose: Infused Insulin Aspart (Novolog Insulin [place] Sugar Inj) 0 unit SQ ACHS AND 3AM [place]; Protocol Last Admin: 05/30/18 11:46 Dose: Not Given Insulin Detemir (Levemir Inj) 58 unit SQ BID [facility] Last Admin: 05/30/18 09:05 Dose: 58 unit Lactulose (Lactulose Liq) 30 ml PO DAILY PRN PRN Reason: SEVERE CONSITIPATION Lisinopril (Prinivil) 2.5 mg PO DAILY [facility] Last Admin: 05/30/18 09:05 Dose: 2.5 mg Metolazone (Zaroxolyn) 2.5 mg PO BID [facility] Last Admin: 05/30/18 09:04 Dose: 2.5 mg Nystatin (Mycostatin Powder) 1 applicatio TOPICAL QID [facility] Last Admin: 05/30/18 12:30 Dose: 1 applicatio Ondansetron HCl (Zofran Inj) 4 mg IV.PUSH Q6H PRN PRN Reason: NAUSEA OR VOMITING Pregabalin (Lyrica) 75 mg PO BID [facility] Last Admin: 05/30/18 09:05 Dose: 75 mg Senna/Docusate Sodium (Abiola-Colace) 1 tab PO BID [facility] Last Admin: 05/30/18 09:04 Dose: 1 tab Sennosides (Senokot) 17.2 mg PO Q12H PRN PRN Reason: Moderate Constipation Sodium Chloride (Ns Flush) 2 ml IV.FLUSH PRN PRN PRN Reason: FLUSH AFTER USING IV ACCESS Sodium Chloride (Ns Flush) 2 ml IV.FLUSH BID [facility] Last Admin: 05/30/18 09:06 Dose: 2 ml Tamsulosin HCl (Flomax) 0.4 mg PO HS [facility] Last Admin: 05/29/18 20:43 Dose: 0.4 mg Allergies Allergy/AdvReac Type Severity Reaction Status Date / Time No Known Allergies Allergy Verified 03/27/18 10:29 Home Medications Medication Instructions Recorded Confirmed Type hydrocodone-acetaminophen [[place]] 1 tab PO Q6H 01/15/18 05/22/18 History insulin regular human [Humulin R 1 sliding scale dose SUB-Q UD 01/15/18 History Regular U-100 Insuln] lidocaine [Lidocaine Pain Relief] 1 patch TOPICAL Q8H 01/15/18 05/22/18 History ranitidine HCl [Zantac] 150 mg PO BID 01/15/18 05/22/18 History sitagliptin-metformin [Janumet] 1 tab PO DAILY 01/15/18 05/22/18 History tamsulosin [Flomax] 0.4 mg PO HS 01/15/18 05/22/18 History Physical Exam Vital signs: Vital Signs 05/29/18 14:00 05/29/18 15:00 05/29/18 15:26 Temperature 99 F Pulse Rate 72 73 56 L Respiratory Rate 19 Blood Pressure 137/77 Pulse Oximetry 98 05/29/18 16:00 05/29/18 17:00 05/29/18 18:00 Temperature Pulse Rate 78 80 80 Respiratory Rate Blood Pressure Pulse Oximetry 05/29/18 19:00 05/29/18 19:43 05/29/18 20:00 Temperature 98.2 F Pulse Rate 78 49 L 78 Respiratory Rate 20 22 Blood Pressure 115/54 L Pulse Oximetry 96 97 05/29/18 20:43 05/29/18 21:00 05/29/18 22:00 Temperature Pulse Rate 71 71 Respiratory Rate 20 Blood Pressure Pulse Oximetry 05/29/18 23:00 05/30/18 00:00 05/30/18 00:16 Temperature 99 F Pulse Rate 76 71 61 Respiratory Rate 24 Blood Pressure 140/65 Pulse Oximetry 94 L 05/30/18 01:00 05/30/18 02:00 05/30/18 03:00 Temperature Pulse Rate 74 72 78 Respiratory Rate Blood Pressure Pulse Oximetry 05/30/18 03:04 05/30/18 03:07 05/30/18 04:00 Temperature 98 F Pulse Rate 71 78 Respiratory Rate 20 20 Blood Pressure 139/62 Pulse Oximetry 94 L 05/30/18 05:00 05/30/18 06:00 05/30/18 07:00 Temperature Pulse Rate 70 70 71 Respiratory Rate Blood Pressure Pulse Oximetry 05/30/18 08:00 05/30/18 08:17 05/30/18 09:00 Temperature 98.4 F Pulse Rate 68 73 76 Respiratory Rate 18 Blood Pressure 130/75 Pulse Oximetry 98 05/30/18 10:00 05/30/18 10:35 05/30/18 11:00 Temperature Pulse Rate 72 75 76 Respiratory Rate 18 Blood Pressure Pulse Oximetry 05/30/18 11:42 05/30/18 12:00 05/30/18 12:58 Temperature 98.1 F Pulse Rate 78 76 79 Respiratory Rate 18 18 Blood Pressure 136/72 Pulse Oximetry 97 05/30/18 13:00 Temperature Pulse Rate 76 Respiratory Rate Blood Pressure Pulse Oximetry Intake & Output 05/29/18 05/30/18 05/30/18 18:59 06:59 18:59 Intake Total 820 / 820 680 / 680 100 / 100 Output Total 750 / 750 650 / 650 Balance 70 / 70 30 / 30 100 / 100 Weight 103 kg Intake: IV 100 / 100 100 / 100 100 / 100 Flexbumin 25% Inj 100 ML @ 60 100 / 100 100 / 100 100 / 100 mls/hr IV.SIG Q12H [place] Rx#: [id number] Oral 720 / 720 480 / 480 Other 100 / 100 Output: Urine 750 / 750 Urine Amount (Catheter) 650 / 650 Indwelling Urethral Catheter 650 / 650 Other: Other Intake Source Saline Solution Date of Last Bowel Movement 05/25/18 05/28/18 05/28/18 # Bowel Movements 0 Narrative: GENERAL: Patient lying in bed watching TV. NAD, AAOx3 SKIN: Significant dryness and evidence of venous stasis on anterior shins bilaterally. HEAD: Atraumatic. Normocephalic. CARDIOVASCULAR: Regular rate and rhythm. RESPIRATORY: Clear to auscultation in all lung watkins bilaterally. No accessory muscle use. Breath sounds equal bilaterally. GASTROINTESTINAL: Abdomen obese but soft, non-tender, less distention than previously noted. MUSCULOSKELETAL: Extremities without clubbing, cyanosis. 1+ pitting edema improving on anterior shins, dependent edema on posterior thighs. No obvious deformities. NEUROLOGICAL: Awake and alert. No obvious cranial nerve deficits. - Urinary Catheter Management Indwelling Urethral Catheter Cath placed during this visit: yes Reason for continuing: Acute urinary retention Insertion date: 05/22/18 Insertion time: 12:37 Results 05/30/18 08:33 05/30/18 08:33 Cardiac Enzymes 05/29/18 05/30/18 Range/Units 07:40 08:33 AST 36 (15-37) U/L B-Natriuretic Peptide 1387 H (0-100) pg/mL Coagulation 05/29/18 Range/Units 07:40 B-Natriuretic Peptide 1387 H (0-100) pg/mL CBC 05/30/18 Range/Units 08:33 WBC 7.6 (4.0-11.0) th/mm3 RBC 2.85 L (4.50-5.90) mil/mm3 Hgb 8.5 L (13.0-17.0) gm/dL Hct 25.3 L (39.0-51.0) % Plt Count 246 (150-450) th/mm3 Neut # (Auto) 4.5 (1.8-7.7) th/mm3 Lymph # (Auto) 1.8 (1.0-4.8) th/mm3 [place] # (Auto) 1.0 H (0.0-0.9) th/mm3 Eos # (Auto) 0.2 (0.0-0.4) th/mm3 Baso # (Auto) 0.0 (0.0-0.2) th/mm3 Comprehensive Metabolic Panel 05/29/18 05/30/18 Range/Units 07:40 08:33 Sodium 140 139 (136-145) meq/L Potassium 4.4 4.6 (3.5-5.1) meq/L Chloride 98 98 (98-107) meq/L Carbon Dioxide 35.2 H 34.6 H (21.0-32.0) meq/L BUN 44 H 53 H (7-18) mg/dL Creatinine 1.99 H 2.43 H (0.60-1.30) mg/dL Calcium 8.6 8.7 (8.5-10.1) mg/dL AST 36 (15-37) U/L ALT 35 (12-78) U/L Alkaline Phosphatase 225 H (45-117) U/L Total Protein 7.0 D (6.4-8.2) g/dL Albumin 2.9 L (3.4-5.0) g/dL Intake and Output 05/29/18 05/30/18 05/30/18 22:59 06:59 14:59 Intake Total 720 / 720 680 / 680 100 / 100 Output Total 750 / 750 650 / 650 Balance -30 / -30 30 / 30 100 / 100 Intake: IV 100 / 100 100 / 100 Flexbumin 25% Inj 100 ML @ 60 100 / 100 100 / 100 mls/hr IV.SIG Q12H [place] Rx#: [id number] Oral 720 / 720 480 / 480 Other 100 / 100 Output: Urine 750 / 750 Urine Amount (Catheter) 650 / 650 Indwelling Urethral Catheter 650 / 650 Other: Other Intake Source Saline Solution Date of Last Bowel Movement 05/25/18 05/28/18 05/28/18 # Bowel Movements 0 Weight 103 kg Assessment and Plan - Assessment (1) Ischemic cardiomyopathy Code(s): I25.5 - Ischemic cardiomyopathy Status: Acute Plan: ef < 20%, on rené/bb;for nuclear viability study today(cr too high for MRI), if some viability would recommend cabg. (2) CHF (congestive heart failure), NYHA class IV Code(s): I50.9 - Heart failure, unspecified Status: Acute Plan: improving on lasix (3) Edema Code(s): R60.9 - Edema, unspecified Status: Acute (4) Cardiorenal syndrome Code(s): I13.10 - Hypertensive heart and chronic kidney disease without heart failure, with stage 1 through stage 4 chronic kidney disease, or unspecified chronic kidney disease Status: Acute Plan: has diuresed some (though still overloaded), though now with worsening cr; will ask for renal assistance. - Plan 1. Ischemic cardiomyopathy Previous EF 20%, new echo read as EF 50%, but visually around 35% 2. Chronic systolic congestive heart failure. Diuresed well Edema improved BNP decreasing Creatinine up, discussed with Nephrology, due to excessive fluid will continue to diureses and reevaluate tomorrow 3. Severe multivessel coronary disease. Nuclear stress test showing multiple areas of infarction Viability showing some infarct, but anterior and inferior harrison other than apex appear possibly viable Discussed with CT surgery Consideration of SNF to get stronger then for CABG Needs diabetes control 4. Hypertension. 5. Hyperlipidemia (2) CHF (congestive heart failure), NYHA class IV Qualifiers: Congestive heart failure type: combined Congestive heart failure chronicity: acute on chronic Qualified Code(s): I50.43 - Acute on chronic combined systolic (congestive) and diastolic (congestive) heart failure
--- NOTE | 2018-05-30 14:12 | P.PNNP ---
Subjective Interval history: ongoing pain with scrotal, leg edema Physical Exam Vital signs: Vital Signs 05/29/18 15:00 05/29/18 15:26 05/29/18 16:00 Temperature 99 F Pulse Rate 73 56 L 78 Respiratory Rate 19 Blood Pressure 137/77 Pulse Oximetry 98 05/29/18 17:00 05/29/18 18:00 05/29/18 19:00 Temperature 98.2 F Pulse Rate 80 80 78 Respiratory Rate 20 Blood Pressure 115/54 L Pulse Oximetry 96 05/29/18 19:43 05/29/18 20:00 05/29/18 20:43 Temperature Pulse Rate 49 L 78 Respiratory Rate 22 20 Blood Pressure Pulse Oximetry 97 05/29/18 21:00 05/29/18 22:00 05/29/18 23:00 Temperature Pulse Rate 71 71 76 Respiratory Rate Blood Pressure Pulse Oximetry 05/30/18 00:00 05/30/18 00:16 05/30/18 01:00 Temperature 99 F Pulse Rate 71 61 74 Respiratory Rate 24 Blood Pressure 140/65 Pulse Oximetry 94 L 05/30/18 02:00 05/30/18 03:00 05/30/18 03:04 Temperature Pulse Rate 72 78 Respiratory Rate 20 Blood Pressure Pulse Oximetry 05/30/18 03:07 05/30/18 04:00 05/30/18 05:00 Temperature 98 F Pulse Rate 71 78 70 Respiratory Rate 20 Blood Pressure 139/62 Pulse Oximetry 94 L 05/30/18 06:00 05/30/18 07:00 05/30/18 08:00 Temperature Pulse Rate 70 71 68 Respiratory Rate Blood Pressure Pulse Oximetry 05/30/18 08:17 05/30/18 09:00 05/30/18 10:00 Temperature 98.4 F Pulse Rate 73 76 72 Respiratory Rate 18 Blood Pressure 130/75 Pulse Oximetry 98 05/30/18 10:35 05/30/18 11:00 05/30/18 11:42 Temperature 98.1 F Pulse Rate 75 76 78 Respiratory Rate 18 18 Blood Pressure 136/72 Pulse Oximetry 97 05/30/18 12:00 05/30/18 12:58 05/30/18 13:00 Temperature Pulse Rate 76 79 76 Respiratory Rate 18 Blood Pressure Pulse Oximetry Intake & Output 12/22/18 12/23/18 12/23/18 18:59 06:59 18:59 Intake Total 820 / 820 680 / 680 100 / 100 Output Total 750 / 750 650 / 650 Balance 70 / 70 30 / 30 100 / 100 Weight 103 kg Intake: IV 100 / 100 100 / 100 100 / 100 Flexbumin 25% Inj 100 ML @ 60 100 / 100 100 / 100 100 / 100 mls/hr IV.SIG Q12H [place] Rx#: [id number] Oral 720 / 720 480 / 480 Other 100 / 100 Output: Urine 750 / 750 Urine Amount (Catheter) 650 / 650 Indwelling Urethral Catheter 650 / 650 Other: Other Intake Source Saline Solution Date of Last Bowel Movement 05/25/18 05/28/18 05/28/18 # Bowel Movements 0 - Constitutional no acute distress - Routine HEENT Exam Head: Present: normocephalic ENT: Present: mucous membranes moist - Routine Neck Exam Present: supple - Routine Respiratory Exam Present: decreased breath sounds - Routine Cardiovascular Exam Present: RRR - Routine Abdominal Exam Present: soft - Routine Exam Scrotal: Present: swelling - Routine Extremities Exam Present: edema - Routine Skin Exam Present: intact - Routine Neurological Exam Present: alert, oriented X3 - Detailed Neurological Exam: Coma Scale Eye Opening: Spontaneous - Routine Psychiatric Exam Present: normal affect - Urinary Catheter Management Indwelling Urethral Catheter Cath placed during this visit: yes Reason for continuing: Acute urinary retention Insertion date: 05/22/18 Insertion time: 12:37 Assessment and Plan - Assessment (1) Acute kidney injury superimposed on chronic kidney disease Code(s): N17.9 - Acute kidney failure, unspecified; N18.9 - Chronic kidney disease, unspecified Status: Acute Plan: Creatinine 1.8 -> 1.9 -> 2.4 On lasix 80mg IV TID and Metolazone 2.5mg BID for diuresis, UOP decreased from 2.1L -> 650cc/24 hours Serum albumin level 2.9: Added albumin infusion to help mobilize fluids for diuresis. Ongoing anasarca and scrotal edema Will change lasix to bumex 0.5mg/ hour infusion. Although elevation in creatinine, still ongoing edema and possible cardiorenal component of renal dysfunction. If worsening azotemia tomorrow, may need to decrease diuretics Follow the urine out put and BMP. (2) Hyperlipidemia Code(s): E78.5 - Hyperlipidemia, unspecified Status: Acute Qualifiers: Hyperlipidemia type: unspecified Qualified Code(s): E78.5 - Hyperlipidemia , unspecified Plan: On atorvastatin (3) Edema Code(s): R60.9 - Edema, unspecified Status: Acute Plan: Continue diuresis maintain strict I+O Daily weights Low sodium diet. (4) DM2 (diabetes mellitus, type 2) Code(s): E11.9 - Type 2 diabetes mellitus without complications Status: Acute Qualifiers: Diabetes mellitus director stage insulin use: with alf use Diabetes mellitus complication status: with circulatory complication Diabetes mellitus complication detail: with other circulatory complications Qualified Code(s): E11.59 - Type 2 diabetes mellitus with other circulatory complications; Z79.4 - prison (current) use of insulin Plan: Maintain blood sugars between 140 mg/dl to 180 mg/dl while hospitalized. Elevated at times. (5) CHF (congestive heart failure), NYHA class IV Code(s): I50.9 - Heart failure, unspecified Status: Acute Qualifiers: Congestive heart failure type: combined Congestive heart failure chronicity : acute on chronic Qualified Code(s): I50.43 - Acute on chronic combined systolic (congestive) and diastolic (congestive) heart failure Plan: On lasix, patient reports that edema is improving. (6) Elevated troponin Code(s): R74.8 - Abnormal levels of other serum enzymes Status: Acute Plan: Cardiology following
[2018-05-30] MEDS: Bumetanide Inj 25 MG/100 ML BAG IV.CONT SCH (16:31)
[2018-05-31] MEDS: Insulin NovoLOG Aspart Correctional Sugar Inj SQ SCH ×5 (04:04→20:19)
[2018-05-31 07:37] LABS: Hematocrit 23.4 % (39.0-51.0); Hemoglobin 7.7 gm/dL (13.0-17.0); Mean Corpuscular HGB Conc 33.1 % (32.0-36.0); Mean Corpuscular Hemoglobin 29.5 pg (27.0-34.0); Mean Platelet Volume 8.2 fL (7.0-11.0); Platelet Count 231 th/mm3 (150-450); Red Blood Count 2.63 mil/mm3 (4.50-5.90); Red Cell Distribution Width 15.9 % (11.6-17.2); White Blood Count 7.5 th/mm3 (4.0-11.0)
[2018-05-31 08:02] LABS: Albumin 3.1 g/dL (3.4-5.0); Anion Gap 6 meq/L (5-15); Aspartate Aminotransferase 59 U/L (15-37); Blood Urea Nitrogen 62 mg/dL (7-18); Calcium 8.6 mg/dL (8.5-10.1); Carbon Dioxide 37.1 meq/L (21.0-32.0); Chloride 94 meq/L (98-107); Glomerular Filtration Rate 25 mL/min (>89); Glucose,Random 71 mg/dL (74-106); Magnesium 2.3 mg/dL (1.5-2.5); Potassium 4.4 meq/L (3.5-5.1); Sodium 137 meq/L (136-145)
[2018-05-31 08:04] LABS: Alanine Aminotransferase 57 U/L (12-78); Phosphorus 4.9 mg/dL (2.5-4.9)
[2018-05-31 08:06] LABS: Alkaline Phosphatase 245 U/L (45-117); Total Protein 6.7 g/dL (6.4-8.2)
[2018-05-31] MEDS ORDERED: Insulin Detemir Inj 1,000 UNIT/10 ML Vial SQ SCH ×2 (09:00→21:00)
[2018-05-31] MEDS: Gabapentin 300 MG Capsule PO SCH ×2 (09:35→13:53)
[2018-05-31] MEDS: Famotidine 20 MG Tablet PO SCH ×2 (09:37→20:17)
[2018-05-31] MEDS: Pregabalin 75 MG Capsule PO SCH ×2 (09:37→20:17)
[2018-05-31] MEDS: Lisinopril 5 MG Tablet PO SCH (09:37)
[2018-05-31] MEDS: Carvedilol 12.5 MG Tablet PO SCH ×2 (09:37→20:18)
[2018-05-31] MEDS: Enoxaparin Inj 30 MG/0.3 ML Syringe SQ SCH (09:38)
[2018-05-31] MEDS: Senna/Docusate Sodium 8.6/50 MG Tablet PO SCH ×2 (09:39→20:18)
[2018-05-31] MEDS: Budesonide-Formoterol 160/4.5 MCG 6 GM Inhaler INH SCH ×2 (09:40→20:29)
[2018-05-31] MEDS: Nystatin 100,000 UNITS/GM Powder 15 GM Bottle TOPICAL SCH ×4 (09:40→20:18)
--- NOTE | 2018-05-31 11:32 | P.PNCA ---
Subjective Interval history: No events overnight Creatinine elevated, diuresing well 1.6L yesterday Only complaint is about his scrotal edema Medications and Allergies Active Medications: Active Medications Acetaminophen (Tylenol) 650 mg PO Q4H PRN PRN Reason: Temp > 100.4, Pain scale 1-2 Last Admin: 05/28/18 09:20 Dose: 650 mg Hydrocodone Bitart/Acetaminophen ([place] 10/325) 1 tab PO Q6H PRN PRN Reason: Pain scale 3-10 Last Admin: 05/31/18 04:05 Dose: 1 tab Al Hydroxide/Mg Hydroxide (Milk Of Cheryl Cortez) 30 ml PO Q12H PRN PRN Reason: Mild Constipation Albuterol (Duoneb Neb ([facility])) 1 ampul NEB Q6HR WHILE AWAKE NEB [facility] Last Admin: 05/31/18 07:22 Dose: 1 ampul Aspirin (Ecotrin) 81 mg PO DAILY [facility] Last Admin: 05/31/18 09:36 Dose: 81 mg Atorvastatin Calcium (Lipitor) 80 mg PO HS [facility] Last Admin: 05/30/18 21:02 Dose: 80 mg Benzonatate (Tessalon Perles) 100 mg PO Q8H PRN PRN Reason: COUGH Last Admin: 05/25/18 23:59 Dose: 100 mg Bisacodyl (Dulcolax Supp) 10 mg RECTAL DAILY PRN PRN Reason: SEVERE CONSITIPATION Budesonide/Formoterol Fumarate (Symbicort 160/4.5 Mcg Inh) 2 puff INH BID [facility] Last Admin: 05/31/18 09:40 Dose: 2 puff Carvedilol (Coreg) 12.5 mg PO BID [facility] Last Admin: 05/31/18 09:37 Dose: 12.5 mg Clopidogrel Bisulfate (Plavix) 75 mg PO DAILY [facility] Last Admin: 05/31/18 09:36 Dose: 75 mg Dextrose (D50w Vial) 50 ml IV.PUSH UNSCH PRN PRN Reason: PER HYPOGLYCEMIA PROTOCOL Enoxaparin Sodium (Lovenox Inj) 30 mg SQ DAILY [facility] Last Admin: 05/31/18 09:38 Dose: 30 mg Famotidine (Pepcid) 10 mg PO BID [facility] Last Admin: 05/31/18 09:37 Dose: 10 mg Fluticasone Propionate (Flonase Nasal [place]) 1 spray NASAL BID [facility] Last Admin: 12/24/18 09:40 Dose: 1 spray Gabapentin (Neurontin) 600 mg PO TID [facility] Last Admin: 05/31/18 09:35 Dose: 600 mg Glucagon (Glucagon Inj) 1 mg OTHER PRN PRN PRN Reason: for Hypoglycemia Protocol Albumin Human (Flexbumin 25% Inj) 100 mls @ 60 mls/hr IV.SIG Q12H [facility] Last Infusion: 05/31/18 00:41 Dose: Infused Bumetanide (Bumex Inj) 25 mg in 100 mls @ 2 mls/hr IV.CONT .Q24H [facility] Last Admin: 05/30/18 16:31 Dose: 0.5 mg/hr, 2 mls/hr Insulin Aspart (Novolog Insulin Correctional Sugar Inj) 0 unit SQ ACHS AND 3AM [facility]; Protocol Last Admin: 05/31/18 08:57 Dose: Not Given Insulin Detemir (Levemir Inj) 68 unit SQ DAILY [facility] Insulin Detemir (Levemir Inj) 58 unit SQ HS [facility] Lactulose (Lactulose Liq) 30 ml PO DAILY PRN PRN Reason: SEVERE CONSITIPATION Lisinopril (Prinivil) 2.5 mg PO DAILY [facility] Last Admin: 05/31/18 09:37 Dose: 2.5 mg Metolazone (Zaroxolyn) 2.5 mg PO BID [facility] Last Admin: 05/31/18 09:36 Dose: 2.5 mg Nystatin (Mycostatin Powder) 1 applicatio TOPICAL QID [facility] Last Admin: 05/31/18 09:40 Dose: 1 applicatio Ondansetron HCl (Zofran Inj) 4 mg IV.PUSH Q6H PRN PRN Reason: NAUSEA OR VOMITING Pregabalin (Lyrica) 75 mg PO BID [facility] Last Admin: 05/31/18 09:37 Dose: 75 mg Senna/Docusate Sodium (Abiola-Colace) 1 tab PO BID [facility] Last Admin: 05/31/18 09:39 Dose: 1 tab Sennosides (Senokot) 17.2 mg PO Q12H PRN PRN Reason: Moderate Constipation Sodium Chloride (Ns Flush) 2 ml IV.FLUSH PRN PRN PRN Reason: FLUSH AFTER USING IV ACCESS Sodium Chloride (Ns Flush) 2 ml IV.FLUSH BID [facility] Last Admin: 05/31/18 09:40 Dose: 2 ml Tamsulosin HCl (Flomax) 0.4 mg PO HS [facility] Last Admin: 05/30/18 20:45 Dose: 0.4 mg Allergies Allergy/AdvReac Type Severity Reaction Status Date / Time No Known Allergies Allergy Verified 03/27/18 10:29 Home Medications Medication Instructions Recorded Confirmed Type hydrocodone-acetaminophen [[place]ell] 1 tab PO Q6H 01/15/18 05/22/18 History insulin regular human [Humulin R 1 sliding scale dose SUB-Q UD 01/15/18 History Regular U-100 Insuln] lidocaine [Lidocaine Pain Relief] 1 patch TOPICAL Q8H 01/15/18 05/22/18 History ranitidine HCl [Zantac] 150 mg PO BID 01/15/18 05/22/18 History sitagliptin-metformin [Janumet] 1 tab PO DAILY 01/15/18 05/22/18 History tamsulosin [Flomax] 0.4 mg PO HS 01/15/18 05/22/18 History Physical Exam Vital signs: Vital Signs 05/30/18 11:42 05/30/18 12:00 05/30/18 12:58 Temperature 98.1 F Pulse Rate 78 76 79 Respiratory Rate 18 18 Blood Pressure 136/72 Pulse Oximetry 97 05/30/18 13:00 05/30/18 14:00 05/30/18 15:00 Temperature Pulse Rate 76 66 72 Respiratory Rate Blood Pressure Pulse Oximetry 05/30/18 15:25 05/30/18 16:00 05/30/18 17:00 Temperature 98.3 F Pulse Rate 51 L 74 76 Respiratory Rate 18 Blood Pressure 153/71 H Pulse Oximetry 98 05/30/18 18:00 05/30/18 19:00 05/30/18 19:38 Temperature 97.8 F Pulse Rate 78 85 50 L Respiratory Rate 18 17 Blood Pressure 140/57 L Pulse Oximetry 99 98 05/30/18 20:12 05/30/18 20:47 05/30/18 21:00 Temperature Pulse Rate 79 74 Respiratory Rate 18 Blood Pressure Pulse Oximetry 05/30/18 22:00 05/30/18 23:00 05/31/18 00:00 Temperature 98.1 F Pulse Rate 74 76 79 Respiratory Rate 18 Blood Pressure 143/80 H Pulse Oximetry 98 05/31/18 01:00 05/31/18 02:00 05/31/18 03:00 Temperature 97.4 F L Pulse Rate 72 76 69 Respiratory Rate Blood Pressure 143/76 H Pulse Oximetry 98 05/31/18 04:00 05/31/18 05:00 05/31/18 06:00 Temperature Pulse Rate 70 75 87 Respiratory Rate Blood Pressure Pulse Oximetry 05/31/18 07:00 05/31/18 07:22 05/31/18 08:00 Temperature 97.8 F Pulse Rate 69 70 77 Respiratory Rate 16 Blood Pressure 149/79 H Pulse Oximetry 99 98 99 05/31/18 09:00 05/31/18 10:00 Temperature Pulse Rate 72 73 Respiratory Rate Blood Pressure Pulse Oximetry Intake & Output 05/30/18 05/31/18 05/31/18 18:59 06:59 18:59 Intake Total 700 / 700 580 / 580 Output Total 1300 / 1300 1600 / 1600 Balance -600 / -600 -1020 / -1020 Weight 102.5 kg Intake: IV 100 / 100 100 / 100 Flexbumin 25% Inj 100 ML @ 60 100 / 100 100 / 100 mls/hr IV.SIG Q12H [place] Rx#: [id number] Oral 600 / 600 480 / 480 Output: Urine 1600 / 1600 Urine Amount (Catheter) 1300 / 1300 Indwelling Urethral Catheter 1300 / 1300 Other: Date of Last Bowel Movement 05/28/18 05/28/18 05/28/18 Narrative: GENERAL: Patient lying in bed watching TV. NAD, AAOx3 SKIN: Significant dryness and evidence of venous stasis on anterior shins bilaterally. HEAD: Atraumatic. Normocephalic. CARDIOVASCULAR: Regular rate and rhythm. RESPIRATORY: Clear to auscultation in all lung watkins bilaterally. No accessory muscle use. Breath sounds equal bilaterally. GASTROINTESTINAL: Abdomen obese but soft, non-tender, less distention than previously noted. MUSCULOSKELETAL: Extremities without clubbing, cyanosis. 1+ pitting edema improving on anterior shins, dependent edema on posterior thighs. No obvious deformities. NEUROLOGICAL: Awake and alert. No obvious cranial nerve deficits. - Urinary Catheter Management Indwelling Urethral Catheter Cath placed during this visit: yes Reason for continuing: Acute urinary retention Insertion date: 05/22/18 Insertion time: 12:37 Results 05/31/18 06:44 05/31/18 06:44 Cardiac Enzymes 05/30/18 05/31/18 Range/Units 08:33 06:44 AST 36 59 H (15-37) U/L CBC 05/30/18 05/31/18 Range/Units 08:33 06:44 WBC 7.6 7.5 (4.0-11.0) th/mm3 RBC 2.85 L 2.63 L (4.50-5.90) mil/mm3 Hgb 8.5 L 7.7 L (13.0-17.0) gm/dL Hct 25.3 L 23.4 L (39.0-51.0) % Plt Count 246 231 (150-450) th/mm3 Neut # (Auto) 4.5 (1.8-7.7) th/mm3 Lymph # (Auto) 1.8 (1.0-4.8) th/mm3 [place] # (Auto) 1.0 H (0.0-0.9) th/mm3 Eos # (Auto) 0.2 (0.0-0.4) th/mm3 Baso # (Auto) 0.0 (0.0-0.2) th/mm3 Comprehensive Metabolic Panel 05/30/18 05/31/18 Range/Units 08:33 06:44 Sodium 139 137 (136-145) meq/L Potassium 4.6 4.4 (3.5-5.1) meq/L Chloride 98 94 L (98-107) meq/L Carbon Dioxide 34.6 H 37.1 H (21.0-32.0) meq/L BUN 53 H 62 H (7-18) mg/dL Creatinine 2.43 H 2.62 H (0.60-1.30) mg/dL Calcium 8.7 8.6 (8.5-10.1) mg/dL AST 36 59 H (15-37) U/L ALT 35 57 (12-78) U/L Alkaline Phosphatase 225 H 245 H (45-117) U/L Total Protein 7.0 D 6.7 (6.4-8.2) g/dL Albumin 2.9 L 3.1 L (3.4-5.0) g/dL Intake and Output 05/30/18 05/31/18 05/31/18 22:59 06:59 14:59 Intake Total 600 / 600 580 / 580 Output Total 1300 / 1300 1600 / 1600 Balance -700 / -700 -1020 / -1020 Intake: IV 100 / 100 Flexbumin 25% Inj 100 ML @ 60 100 / 100 mls/hr IV.SIG Q12H [place] Rx#: [id number] Oral 600 / 600 480 / 480 Output: Urine 1600 / 1600 Urine Amount (Catheter) 1300 / 1300 Indwelling Urethral Catheter 1300 / 1300 Other: Date of Last Bowel Movement 05/28/18 05/28/18 05/28/18 Weight 102.5 kg Assessment and Plan - Assessment (1) Ischemic cardiomyopathy Code(s): I25.5 - Ischemic cardiomyopathy Status: Acute Plan: ef < 20%, on rené/bb;for nuclear viability study today(cr too high for MRI), if some viability would recommend cabg. (2) CHF (congestive heart failure), NYHA class IV Code(s): I50.9 - Heart failure, unspecified Status: Acute Plan: improving on lasix (3) Edema Code(s): R60.9 - Edema, unspecified Status: Acute (4) Cardiorenal syndrome Code(s): I13.10 - Hypertensive heart and chronic kidney disease without heart failure, with stage 1 through stage 4 chronic kidney disease, or unspecified chronic kidney disease Status: Acute Plan: has diuresed some (though still overloaded), though now with worsening cr; will ask for renal assistance. - Plan 1. Ischemic cardiomyopathy Previous EF 20%, new echo read as EF 50%, but visually around 35% 2. Chronic systolic congestive heart failure. Diuresing well Edema improved BNP decreasing Creatinine up again, will await recommendations from nephrology 3. Severe multivessel coronary disease. Nuclear stress test showing multiple areas of infarction Viability showing some infarct, but anterior and inferior harrison other than apex appear possibly viable Discussed with CT surgery Consideration of SNF to get stronger then for CABG Needs diabetes control 4. Hypertension. 5. Hyperlipidemia (2) CHF (congestive heart failure), NYHA class IV Qualifiers: Congestive heart failure type: combined Congestive heart failure chronicity: acute on chronic Qualified Code(s): I50.43 - Acute on chronic combined systolic (congestive) and diastolic (congestive) heart failure
[2018-05-31] MEDS: Albumin Human 25% Inj 100 ML IV.SIG SCH (11:58)
[2018-05-31] MEDS: Insulin Detemir Inj 1,000 UNIT/10 ML Vial SQ SCH ×2 (12:07→20:19)
--- NOTE | 2018-05-31 13:08 | P.PNFP ---
Subjective Interval history: Patient seen at bedside this morning. Reports continued improvement in breathing as well as improvement in his neuropathic pain. Patient does report continued penile pain and discomfort. Current plan for diuresis as well as his current plan in reference to his kidney function was discussed in detail. Patient agreed with plan had no further questions. <Joshua Shah - 05/31/18 15:01> Results - Labs Result diagrams: 06/01/18 05:52 06/01/18 05:52 <Jose Monroe - 06/01/18 13:41> Abnormal lab results 05/31/18 05/31/18 05/31/18 Range/Units 15:30 16:44 20:15 RBC (4.50-5.90) mil/mm3 Hgb (13.0-17.0) gm/dL Hct (39.0-51.0) % [place] % (Auto) (0.0-8.0) % [place] # (Auto) (0.0-0.9) th/mm3 Retic Count (0.4-3.0) % Chloride (98-107) meq/L Carbon Dioxide (21.0-32.0) meq/L BUN (7-18) mg/dL Creatinine (0.60-1.30) mg/dL Estimated GFR (>89) mL/min POC Glucose 226 H 287 H (68-110) mg/dl Random Glucose (74-106) mg/dL Calcium (8.5-10.1) mg/dL AST (15-37) U/L Alkaline Phosphatase (45-117) U/L Ammonia (11-32) mcmol/L Albumin (3.4-5.0) g/dL Urine Clarity Hazy H (Clear) Urine Protein 100 H (Neg-Trace) mg/dL Urine Occult Blood Moderate H (Negative) Ur Leukocyte Esterase Moderate H (Negative) Urine RBC 20 H (0-3) /hpf Urine WBC 27 H (0-5) /hpf Urine Bacteria Few H (None) /hpf Urine Mucus Few H (Occasional) /lpf 06/01/18 06/01/18 06/01/18 Range/Units 02:51 05:52 05:52 RBC 2.45 L (4.50-5.90) mil/mm3 Hgb 7.2 L (13.0-17.0) gm/dL Hct 21.6 L (39.0-51.0) % [place] % (Auto) 16.0 H (0.0-8.0) % [place] # (Auto) 1.2 H (0.0-0.9) th/mm3 Retic Count (0.4-3.0) % Chloride 93 L (98-107) meq/L Carbon Dioxide 36.0 H (21.0-32.0) meq/L BUN 67 H (7-18) mg/dL Creatinine 2.80 H (0.60-1.30) mg/dL Estimated GFR 23 L (>89) mL/min POC Glucose 185 H (68-110) mg/dl Random Glucose 141 H (74-106) mg/dL Calcium 8.2 L (8.5-10.1) mg/dL AST 77 H (15-37) U/L Alkaline Phosphatase 303 H (45-117) U/L Ammonia (11-32) mcmol/L Albumin 3.1 L (3.4-5.0) g/dL Urine Clarity (Clear) Urine Protein (Neg-Trace) mg/dL Urine Occult Blood (Negative) Ur Leukocyte Esterase (Negative) Urine RBC (0-3) /hpf Urine WBC (0-5) /hpf Urine Bacteria (None) /hpf Urine Mucus (Occasional) /lpf 06/01/18 06/01/18 06/01/18 Range/Units 05:52 08:32 10:49 RBC (4.50-5.90) mil/mm3 Hgb (13.0-17.0) gm/dL Hct (39.0-51.0) % [place] % (Auto) (0.0-8.0) % [place] # (Auto) (0.0-0.9) th/mm3 Retic Count 3.3 H (0.4-3.0) % Chloride (98-107) meq/L Carbon Dioxide (21.0-32.0) meq/L BUN (7-18) mg/dL Creatinine (0.60-1.30) mg/dL Estimated GFR (>89) mL/min POC Glucose 184 H (68-110) mg/dl Random Glucose (74-106) mg/dL Calcium (8.5-10.1) mg/dL AST (15-37) U/L Alkaline Phosphatase (45-117) U/L Ammonia 34 H (11-32) mcmol/L Albumin (3.4-5.0) g/dL Urine Clarity (Clear) Urine Protein (Neg-Trace) mg/dL Urine Occult Blood (Negative) Ur Leukocyte Esterase (Negative) Urine RBC (0-3) /hpf Urine WBC (0-5) /hpf Urine Bacteria (None) /hpf Urine Mucus (Occasional) /lpf 06/01/18 Range/Units 12:25 RBC (4.50-5.90) mil/mm3 Hgb (13.0-17.0) gm/dL Hct (39.0-51.0) % [place] % (Auto) (0.0-8.0) % [place] # (Auto) (0.0-0.9) th/mm3 Retic Count (0.4-3.0) % Chloride (98-107) meq/L Carbon Dioxide (21.0-32.0) meq/L BUN (7-18) mg/dL Creatinine (0.60-1.30) mg/dL Estimated GFR (>89) mL/min POC Glucose 222 H (68-110) mg/dl Random Glucose (74-106) mg/dL Calcium (8.5-10.1) mg/dL AST (15-37) U/L Alkaline Phosphatase (45-117) U/L Ammonia (11-32) mcmol/L Albumin (3.4-5.0) g/dL Urine Clarity (Clear) Urine Protein (Neg-Trace) mg/dL Urine Occult Blood (Negative) Ur Leukocyte Esterase (Negative) Urine RBC (0-3) /hpf Urine WBC (0-5) /hpf Urine Bacteria (None) /hpf Urine Mucus (Occasional) /lpf Short CBC 06/01/18 Range/Units 05:52 WBC 7.4 (4.0-11.0) th/mm3 Hgb 7.2 L (13.0-17.0) gm/dL Hct 21.6 L (39.0-51.0) % Plt Count 208 (150-450) th/mm3 BMP 06/01/18 05:52 Sodium 136 Potassium 4.2 Chloride 93 L Carbon Dioxide 36.0 H BUN 67 H Creatinine 2.80 H Calcium 8.2 L Liver Function 06/01/18 Range/Units 05:52 Total Bilirubin 0.4 (0.2-1.0) mg/dL AST 77 H (15-37) U/L ALT 70 (12-78) U/L Alkaline Phosphatase 303 H (45-117) U/L Albumin 3.1 L (3.4-5.0) g/dL Urine 05/31/18 Range/Units 15:30 Urine Color Yellow (Yellw/Straw) Urine Clarity Hazy H (Clear) Urine pH 6.0 (5.0-8.5) Ur Specific [place] 1.006 (1.002-1.035) Urine Protein 100 H (Neg-Trace) mg/dL Urine Glucose (UA) Negative (Negative) mg/dL <Jose Monroe - 06/01/18 13:41> Abnormal lab results 05/30/18 05/30/18 05/31/18 Range/Units 16:28 20:51 06:44 RBC (4.50-5.90) mil/mm3 Hgb (13.0-17.0) gm/dL Hct (39.0-51.0) % Chloride 94 L (98-107) meq/L Carbon Dioxide 37.1 H (21.0-32.0) meq/L BUN 62 H (7-18) mg/dL Creatinine 2.62 H (0.60-1.30) mg/dL Estimated GFR 25 L (>89) mL/min POC Glucose 201 H 193 H (68-110) mg/dl Random Glucose 71 L (74-106) mg/dL AST 59 H (15-37) U/L Alkaline Phosphatase 245 H (45-117) U/L Albumin 3.1 L (3.4-5.0) g/dL 18 05/31/18 Range/Units 06:44 11:56 RBC 2.63 L (4.50-5.90) mil/mm3 Hgb 7.7 L (13.0-17.0) gm/dL Hct 23.4 L (39.0-51.0) % Chloride (98-107) meq/L Carbon Dioxide (21.0-32.0) meq/L BUN (7-18) mg/dL Creatinine (0.60-1.30) mg/dL Estimated GFR (>89) mL/min POC Glucose 123 H (68-110) mg/dl Random Glucose (74-106) mg/dL AST (15-37) U/L Alkaline Phosphatase (45-117) U/L Albumin (3.4-5.0) g/dL Short CBC 05/31/18 Range/Units 06:44 WBC 7.5 (4.0-11.0) th/mm3 Hgb 7.7 L (13.0-17.0) gm/dL Hct 23.4 L (39.0-51.0) % Plt Count 231 (150-450) th/mm3 BMP 05/31/18 06:44 Sodium 137 Potassium 4.4 Chloride 94 L Carbon Dioxide 37.1 H BUN 62 H Creatinine 2.62 H Calcium 8.6 Liver Function 05/31/18 Range/Units 06:44 Total Bilirubin 0.3 (0.2-1.0) mg/dL AST 59 H (15-37) U/L ALT 57 (12-78) U/L Alkaline Phosphatase 245 H (45-117) U/L Albumin 3.1 L (3.4-5.0) g/dL <Joshua Shah O - 05/31/18 13:08> Physical Exam Vital signs: Vital Signs 05/31/18 14:00 05/31/18 14:05 05/31/18 15:00 Temperature 98.8 F Pulse Rate 75 94 H 75 Respiratory Rate 16 Blood Pressure 142/59 H Pulse Oximetry 98 05/31/18 16:00 05/31/18 17:00 05/31/18 18:00 Temperature Pulse Rate 78 65 68 Respiratory Rate Blood Pressure Pulse Oximetry 05/31/18 19:00 05/31/18 19:10 05/31/18 20:00 Temperature 98.7 F Pulse Rate 90 72 79 Respiratory Rate 16 18 Blood Pressure 135/75 Pulse Oximetry 98 96 98 05/31/18 21:00 05/31/18 22:00 05/31/18 23:00 Temperature 98.4 F Pulse Rate 80 78 77 Respiratory Rate 17 Blood Pressure 141/55 H Pulse Oximetry 97 06/01/18 00:00 06/01/18 01:00 06/01/18 02:00 Temperature Pulse Rate 76 74 72 Respiratory Rate Blood Pressure Pulse Oximetry 06/01/18 03:00 06/01/18 04:00 06/01/18 05:00 Temperature 98.2 F Pulse Rate 75 74 69 Respiratory Rate 17 Blood Pressure 144/68 H Pulse Oximetry 95 06/01/18 06:00 06/01/18 08:00 06/01/18 08:47 Temperature 97.7 F Pulse Rate 69 71 Respiratory Rate 16 16 Blood Pressure 141/69 H Pulse Oximetry 98 06/01/18 08:53 06/01/18 12:00 Temperature 97.8 F Pulse Rate 70 72 Respiratory Rate 18 18 Blood Pressure 138/60 Pulse Oximetry 98 98 Intake & Output 05/31/18 06/01/18 06/01/18 18:59 06:59 18:59 Intake Total 760 / 760 580 / 580 240 / 240 Output Total 1999 1550 / 1550 900 / 900 Balance -1240 / -1240 -970 / -970 -660 / -660 Weight 100 kg Intake: IV 200 / 200 100 / 100 Bumex Inj 25 mg In 100 ml @ 0.5 100 / 100 MG/HR 2 mls/hr IV.CONT .Q24H [facility] Rx#:[id number] Flexbumin 25% Inj 100 ML @ 60 100 / 100 100 / 100 mls/hr IV.SIG Q12H [facility] Rx#: [id number] Oral 560 / 560 480 / 480 240 / 240 Output: Urine Amount (Catheter) 1999 1550 / 1550 900 / 900 Indwelling Urethral Catheter 1999 1550 / 1550 900 / 900 Other: Date of Last Bowel Movement 05/31/18 05/31/18 # Bowel Movements 0 <Jose Monroe - 06/01/18 13:41> Vital Signs 05/30/18 14:00 05/30/18 15:00 05/30/18 15:25 Temperature 98.3 F Pulse Rate 66 72 51 L Respiratory Rate 18 Blood Pressure 153/71 H Pulse Oximetry 98 05/30/18 16:00 05/30/18 17:00 05/30/18 18:00 Temperature Pulse Rate 74 76 78 Respiratory Rate Blood Pressure Pulse Oximetry 05/30/18 19:00 05/30/18 19:38 05/30/18 20:12 Temperature 97.8 F Pulse Rate 85 50 L 79 Respiratory Rate 18 17 Blood Pressure 140/57 L Pulse Oximetry 99 98 05/30/18 20:47 05/30/18 21:00 05/30/18 22:00 Temperature Pulse Rate 74 74 Respiratory Rate 18 Blood Pressure Pulse Oximetry 05/30/18 23:00 05/31/18 00:00 05/31/18 01:00 Temperature 98.1 F Pulse Rate 76 79 72 Respiratory Rate 18 Blood Pressure 143/80 H Pulse Oximetry 98 05/31/18 02:00 05/31/18 03:00 05/31/18 04:00 Temperature 97.4 F L Pulse Rate 76 69 70 Respiratory Rate Blood Pressure 143/76 H Pulse Oximetry 98 05/31/18 05:00 05/31/18 06:00 05/31/18 07:00 Temperature 97.8 F Pulse Rate 75 87 69 Respiratory Rate Blood Pressure 149/79 H Pulse Oximetry 99 05/31/18 07:22 05/31/18 08:00 05/31/18 09:00 Temperature Pulse Rate 70 77 72 Respiratory Rate 16 Blood Pressure Pulse Oximetry 98 99 05/31/18 10:00 05/31/18 11:00 05/31/18 12:00 Temperature 97.9 F Pulse Rate 73 76 69 Respiratory Rate Blood Pressure 143/75 H Pulse Oximetry 99 Intake & Output 05/30/18 05/31/18 05/31/18 18:59 06:59 18:59 Intake Total 700 / 700 580 / 580 Output Total 1300 / 1300 1600 / 1600 Balance -600 / -600 -1020 / -1020 Weight 102.5 kg Intake: IV 100 / 100 100 / 100 Flexbumin 25% Inj 100 ML @ 60 100 / 100 100 / 100 mls/hr IV.SIG Q12H [facility] Rx#: [id number] Oral 600 / 600 480 / 480 Output: Urine 1600 / 1600 Urine Amount (Catheter) 1300 / 1300 Indwelling Urethral Catheter 1300 / 1300 Other: Date of Last Bowel Movement 05/28/18 05/28/18 05/28/18 <Joshua Shah O - 05/31/18 13:08> Narrative: GENERAL: Patient lying in bed watching TV. NAD, AAOx3 SKIN: Significant dryness and evidence of venous stasis on anterior shins bilaterally. HEAD: Atraumatic. Normocephalic. CARDIOVASCULAR: Regular rate and rhythm. RESPIRATORY: Clear to auscultation in all lung watkins bilaterally. No accessory muscle use. Breath sounds equal bilaterally. GASTROINTESTINAL: Abdomen obese but soft, non-tender, less distention than previously noted. MUSCULOSKELETAL: Extremities without clubbing, cyanosis. 1+ pitting edema improving on anterior shins, dependent edema on posterior thighs. No obvious deformities. GENITOURINARY: Scrotal swelling appears more edematous than yesterday. Swelling extends up and around the penis to the tip of the meatus. Scrotal skin less tense than on previous exams. Patient now appears to have penile discharge at urethral meatus along with erythema and irritation due to the Chung catheter. Base of the glans not visualized due to pain on retraction of foreskin. NEUROLOGICAL: Awake and alert. No obvious cranial nerve deficits. <Mancia Joshua Schmitt - 05/31/18 15:01> - Urinary Catheter Management Indwelling Urethral Catheter Cath placed during this visit: no <Jose Monroe - 06/01/18 13:41> yes <Joshua Shah - 05/31/18 15:01> Reason for continuing: Acute urinary retention <Mancia Joshua Schmitt - 05/31/18 13 :08> Insertion date: 05/22/18 <Mancia Joshua Schmitt - 05/31/18 13:08> Insertion time: 12:37 <Mancia [email or web address] - 05/31/18 13:08> Assessment and Plan - Assessment (1) CHF (congestive heart failure), NYHA class IV Code(s): I50.9 - Heart failure, unspecified Status: Acute (2) [place] Code(s): R27.8 - Other lack of coordination Status: Acute (3) COPD (chronic obstructive pulmonary disease) Code(s): J44.9 - Chronic obstructive pulmonary disease, unspecified Status: Acute (4) Ischemic cardiomyopathy Code(s): I25.5 - Ischemic cardiomyopathy Status: Acute (5) CAD (coronary artery disease) Code(s): I25.10 - Atherosclerotic heart disease of [place] coronary artery without angina pectoris Status: Acute (6) Balanitis Code(s): N48.1 - Balanitis Status: Acute (7) DM2 (diabetes mellitus, type 2) Code(s): E11.9 - Type 2 diabetes mellitus without complications Status: Acute (8) HTN (hypertension) Code(s): I10 - Essential (primary) hypertension Status: Acute (9) Chronic kidney disease Code(s): N18.9 - Chronic kidney disease, unspecified Status: Acute (10) Diabetic neuropathy Code(s): E11.40 - Type 2 diabetes mellitus with diabetic neuropathy, unspecified Status: Acute (11) Nutrition, metabolism, and development symptoms Code(s): R63.8 - Other symptoms and signs concerning food and fluid intake Status: Acute <Jose Monroe - 06/01/18 13:41> (1) CHF (congestive heart failure), NYHA class IV Code(s): I50.9 - Heart failure, unspecified Status: Acute Plan: Patient continues to improve and diurese. Significantly less edema in legs but continues to have scrotal swelling. Scrotal swelling better but still impressive. -Con't to monitor I's and O's strictly with daily weights * Patient has an indwelling ureteral catheter 05/22 due to scrotal edema -Fluid restriction 1.5 L -Salt restriction 2 g -Continue Bumex and metolazone BID, continue to monitor kidney function Patient to be evaluated next week for possible CABG. Continue to diurese. Related consults: cardiology nephrology CV surgery (2) COPD (chronic obstructive pulmonary disease) Code(s): J44.9 - Chronic obstructive pulmonary disease, unspecified Status: Acute Plan: Patients personal cyber crime investigator Dr. Carlson on board. Continue Symbicort Continue Atrovent BID Albuterol PRN O2 as needed Incentive spirometry (3) Ischemic cardiomyopathy Code(s): I25.5 - Ischemic cardiomyopathy Status: Acute Plan: -EF 35%, FEV1 0.8. Poor surgical candidate. Will be evaluated possibly next or Thursday for surgical intervention. -Continue carvedilol and JEREMY inhibitor (4) CAD (coronary artery disease) Code(s): I25.10 - Atherosclerotic heart disease of [place] coronary artery without angina pectoris Status: Acute Plan: -Patient with history of previous [place] -Continue aspirin and Plavix -Continue atorvastatin 80 mg p.o. HS (5) Balanitis Code(s): N48.1 - Balanitis Status: Acute Plan: Patient has significant irritation and pain at the urethral meatus now with urethra discharge. Patient currently has Chung catheter in place. The patient requests that the Chung catheter be kept in place due to difficulty urinating in light of scrotal swelling. -Follow-up with culture of genital discharge -Continue nystatin powder to affected area 4 times daily -Follow up with urology recommendations in reference to removal and replacement of Chung catheter -Follow-up with urinalysis (6) DM2 (diabetes mellitus, type 2) Code(s): E11.9 - Type 2 diabetes mellitus without complications Status: Acute Plan: Improved control - Levemir 68 units BID - High dose SSI Con't to adjust based on requirements over the course of the day (7) HTN (hypertension) Code(s): I10 - Essential (primary) hypertension Status: Acute Plan: -Continue with carvedilol 12.5 mg twice daily -Continue Lisinopril 2.5 mg daily (8) Chronic kidney disease Code(s): N18.9 - Chronic kidney disease, unspecified Status: Acute Plan: Creatinine: Increased 2.62 from 1.99 Continue with nephrology recommendations GFR 25 Will require outpatient monitoring (9) Diabetic neuropathy Code(s): E11.40 - Type 2 diabetes mellitus with diabetic neuropathy, unspecified Status: Acute Plan: Patient suffers from diabetic neuropathy that is significantly increased after patient has been to diurese. Patient requests to begin gabapentin. -Increase gabapentin from 300 mg daily to 600 mg 3 times daily (10) Nutrition, metabolism, and development symptoms Code(s): R63.8 - Other symptoms and signs concerning food and fluid intake Status: Acute Plan: Fluids: Oral fluids only, restrict to 1.5 L due to CHF Electrolytes: Monitor and replete as needed Nutrition: Cardiac and diabetic diet. Salt restricted 2g daily. <Joshua Shah 05/31/18 14:51> - Assessment and Plan 63-year-old male presented with acute on chronic CHF exacerbation. Elevated BNP with bilateral 2+ pitting edema, distended abdomen, crackles bilaterally throughout all lung watkins. Patient was started on 40 IV Lasix twice daily and improved. Cardiology consulted due to ejection fraction of less than 20% and plan to perform nuclear viability study to determine if he needs a CABG. Patient also has diabetes, on Levemir 20 units twice daily, high dose sliding scale. ACS rule out was negative. <Joshua Shah 05/31/18 13:08> - Attending Attestation Pt. examined independently during medical rounds on the morning of 05/31/2018 I have read the above resident note and agree with the assessment/plan as discussed with me I was involved in all medical decision making for this patient Jose Monroe MD <Jose Monroe - 06/01/18 13:41> <Joshua Shah - Last Filed: 05/31/18 14:51> (1) CHF (congestive heart failure), NYHA class IV Qualifiers: Congestive heart failure type: combined Congestive heart failure chronicity: acute on chronic Qualified Code(s): I50.43 - Acute on chronic combined systolic (congestive) and diastolic (congestive) heart failure (6) DM2 (diabetes mellitus, type 2) Qualifiers: Diabetes mellitus intermediate insulin use: with intermediate use Diabetes mellitus complication status: with circulatory complication Diabetes mellitus complication detail: with other circulatory complications Qualified Code(s): E11.59 - Type 2 diabetes mellitus with other circulatory complications; Z79.4 - fur dry cleaner hand (current) use of insulin (7) HTN (hypertension) Qualifiers: Hypertension type: essential hypertension Qualified Code(s): I10 - Essential (primary) hypertension (8) Chronic kidney disease Qualifiers: Chronic kidney disease stage: unspecified stage Qualified Code(s): N18.9 - Chronic kidney disease, unspecified <Jose Monroe - Last Filed: 06/01/18 13:41> (1) CHF (congestive heart failure), NYHA class IV Qualifiers: Congestive heart failure type: combined Congestive heart failure chronicity: acute on chronic Qualified Code(s): I50.43 - Acute on chronic combined systolic (congestive) and diastolic (congestive) heart failure (7) DM2 (diabetes mellitus, type 2) Qualifiers: Diabetes mellitus industrial relations counselor insulin use: with industrial relations counselor use Diabetes mellitus complication status: with circulatory complication Diabetes mellitus complication detail: with other circulatory complications Qualified Code(s): E11.59 - Type 2 diabetes mellitus with other circulatory complications; Z79.4 - fur dry cleaner hand (current) use of insulin (8) HTN (hypertension) Qualifiers: Hypertension type: essential hypertension Qualified Code(s): I10 - Essential (primary) hypertension (9) Chronic kidney disease Qualifiers: Chronic kidney disease stage: unspecified stage Qualified Code(s): N18.9 - Chronic kidney disease, unspecified <Joshua Shah - Last Filed: 05/31/18 14:51> (1) CHF (congestive heart failure), NYHA class IV Qualifiers: Congestive heart failure type: combined Congestive heart failure chronicity: acute on chronic Qualified Code(s): I50.43 - Acute on chronic combined systolic (congestive) and diastolic (congestive) heart failure (6) DM2 (diabetes mellitus, type 2) Qualifiers: Diabetes mellitus intermediate insulin use: with industrial relations counselor use Diabetes mellitus complication status: with circulatory complication Diabetes mellitus complication detail: with other circulatory complications Qualified Code(s): E11.59 - Type 2 diabetes mellitus with other circulatory complications; Z79.4 - [facility] (current) use of insulin (7) HTN (hypertension) Qualifiers: Hypertension type: essential hypertension Qualified Code(s): I10 - Essential (primary) hypertension (8) Chronic kidney disease Qualifiers: Chronic kidney disease stage: unspecified stage Qualified Code(s): N18.9 - Chronic kidney disease, unspecified <Jose Monroe - Last Filed: 06/01/18 13:41> (1) CHF (congestive heart failure), NYHA class IV Qualifiers: Congestive heart failure type: combined Congestive heart failure chronicity: acute on chronic Qualified Code(s): I50.43 - Acute on chronic combined systolic (congestive) and diastolic (congestive) heart failure (7) DM2 (diabetes mellitus, type 2) Qualifiers: Diabetes mellitus intermediate insulin use: with industrial relations counselor use Diabetes mellitus complication status: with circulatory complication Diabetes mellitus complication detail: with other circulatory complications Qualified Code(s): E11.59 - Type 2 diabetes mellitus with other circulatory complications; Z79.4 - fur dry cleaner hand (current) use of insulin (8) HTN (hypertension) Qualifiers: Hypertension type: essential hypertension Qualified Code(s): I10 - Essential (primary) hypertension (9) Chronic kidney disease Qualifiers: Chronic kidney disease stage: unspecified stage Qualified Code(s): N18.9 - Chronic kidney disease, unspecified
--- NOTE | 2018-05-31 14:12 | P.PNCV ---
- Note Subjective/Hospital Course: 63-year-old gentleman with known multivessel disease and ejection fraction of less than 20%, who has had multiple admissions for congestive heart failure and a cardiac catheterization fairly recently showing severe multivessel disease. Was deemed not a candidate for surgery2/2 high-risk for surgical intervention based on his poor LV function and severe COPD with an FEV1 of 0.8 liters. He has been put on BiPAP and given diuresis and is already feeling notably better, we were reconsulted for re-evaluation for candidacy for surgery. PAST MEDICAL HISTORY: . Ischemic cardiomyopathy, ejection fraction less than 20%, Chronic systolic congestive heart failure, Severe multivessel coronary disease, Hypertension, Hyperlipidemia. 05/27 viability test noted : viability in anterolateral wall / EF 30 % recommend maximizing medical therapy for now for Heart Failure/ Meds/ compliance pt can be dc to inpt SNF from our standpoint for continued monitoring and compliance if unable to place in SNF, then will eval for surgery next / thursday , will need to be off plavix for 3-5 days 05/31 worsening renal indices, on Bumex gtt legs have improved, still has significant scrotal edema still recommend SNF placement to allow pt to recover then eval in office for timing for surgery Objective: Vital Signs - 24 hr 05/30/18 15:00 05/30/18 15:25 05/30/18 16:00 Temperature 98.3 F Pulse Rate 72 51 L 74 Respiratory Rate 18 Blood Pressure 153/71 H Pulse Oximetry 98 05/30/18 17:00 05/30/18 18:00 05/30/18 19:00 Temperature 97.8 F Pulse Rate 76 78 85 Respiratory Rate 18 Blood Pressure 140/57 L Pulse Oximetry 99 05/30/18 19:38 05/30/18 20:12 05/30/18 20:47 Temperature Pulse Rate 50 L 79 Respiratory Rate 17 18 Blood Pressure Pulse Oximetry 98 05/30/18 21:00 05/30/18 22:00 05/30/18 23:00 Temperature 98.1 F Pulse Rate 74 74 76 Respiratory Rate 18 Blood Pressure 143/80 H Pulse Oximetry 98 05/31/18 00:00 05/31/18 01:00 05/31/18 02:00 Temperature Pulse Rate 79 72 76 Respiratory Rate Blood Pressure Pulse Oximetry 05/31/18 03:00 05/31/18 04:00 05/31/18 05:00 Temperature 97.4 F L Pulse Rate 69 70 75 Respiratory Rate Blood Pressure 143/76 H Pulse Oximetry 98 05/31/18 06:00 05/31/18 07:00 05/31/18 07:22 Temperature 97.8 F Pulse Rate 87 69 70 Respiratory Rate 16 Blood Pressure 149/79 H Pulse Oximetry 99 98 05/31/18 08:00 05/31/18 09:00 05/31/18 10:00 Temperature Pulse Rate 77 72 73 Respiratory Rate Blood Pressure Pulse Oximetry 99 05/31/18 11:00 05/31/18 12:00 05/31/18 13:00 Temperature 97.9 F Pulse Rate 76 69 65 Respiratory Rate Blood Pressure 143/75 H Pulse Oximetry 99 05/31/18 14:00 Temperature Pulse Rate 75 Respiratory Rate Blood Pressure Pulse Oximetry GENERAL: A&O x 3 SKIN: Warm and dry. HEAD: Normocephalic. EYES: No scleral icterus. No injection or drainage. NECK: Supple, trachea midline. No JVD or lymphadenopathy. CARDIOVASCULAR: Regular rate and rhythm without murmurs, gallops, or rubs. RESPIRATORY: Breath sounds equal bilaterally. No accessory muscle use. some lower ext edema GASTROINTESTINAL: Abdomen soft, non-tender, nondistended. + scrotal edema MUSCULOSKELETAL: No cyanosis, or edema. BACK: Nontender without obvious deformity. No CVA tenderness. Labs: Laboratory Results - last 12 hr 05/31/18 05/31/18 05/31/18 04:03 06:44 06:44 WBC 7.5 RBC 2.63 L Hgb 7.7 L Hct 23.4 L MCV 89.0 MCH 29.5 MCHC 33.1 RDW 15.9 Plt Count 231 MPV 8.2 Sodium 137 Potassium 4.4 Chloride 94 L Carbon Dioxide 37.1 H Anion Gap 6 BUN 62 H Creatinine 2.62 H Estimated GFR 25 L POC Glucose 105 Random Glucose 71 L Calcium 8.6 Phosphorus 4.9 Magnesium 2.3 Total Bilirubin 0.3 AST 59 H ALT 57 Alkaline Phosphatase 245 H Total Protein 6.7 Albumin 3.1 L 05/31/18 05/31/18 08:52 11:56 WBC RBC Hgb Hct MCV MCH MCHC RDW Plt Count MPV Sodium Potassium Chloride Carbon Dioxide Anion Gap BUN Creatinine Estimated GFR POC Glucose 88 123 H Random Glucose Calcium Phosphorus Magnesium Total Bilirubin AST ALT Alkaline Phosphatase Total Protein Albumin Result Diagrams: 05/31/18 06:44 05/31/18 06:44 - Plan (1) Hyperlipidemia (2) DM2 (diabetes mellitus, type 2) (3) HTN (hypertension) (4) CHF (congestive heart failure), NYHA class IV (5) Chronic kidney disease (1) Hyperlipidemia Qualifiers: Hyperlipidemia type: unspecified Qualified Code(s): E78.5 - Hyperlipidemia, unspecified (2) DM2 (diabetes mellitus, type 2) Qualifiers: 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 mellitus 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 acquisition specialist insulin use: with mcc use Diabetes mellitus complication status: with circulatory complication Diabetes mellitus complication detail: with other circulatory complications Qualified Code(s): E11.59 - Type 2 diabetes mellitus with other circulatory complications; Z79.4 - snf (current) use of insulin (3) HTN (hypertension) Qualifiers: Hypertension type: essential hypertension Qualified Code(s): I10 - Essential (primary) hypertension (4) CHF (congestive heart failure), NYHA class IV Qualifiers: Congestive heart failure type: combined Congestive heart failure chronicity: acute on chronic Qualified Code(s): I50.43 - Acute on chronic combined systolic (congestive) and diastolic (congestive) heart failure (5) Chronic kidney disease Qualifiers: Chronic kidney disease stage: unspecified stage Qualified Code(s): N18.9 - Chronic kidney disease, unspecified
--- NOTE | 2018-05-31 16:17 | P.PNNP ---
Subjective Interval history: Patient seen in AM, has mild SOB, eating better, still complaining of scrotal edema. Physical Exam Vital signs: Vital Signs 05/30/18 17:00 05/30/18 18:00 05/30/18 19:00 Temperature 97.8 F Pulse Rate 76 78 85 Respiratory Rate 18 Blood Pressure 140/57 L Pulse Oximetry 99 05/30/18 19:38 05/30/18 20:12 05/30/18 20:47 Temperature Pulse Rate 50 L 79 Respiratory Rate 17 18 Blood Pressure Pulse Oximetry 98 05/30/18 21:00 05/30/18 22:00 05/30/18 23:00 Temperature 98.1 F Pulse Rate 74 74 76 Respiratory Rate 18 Blood Pressure 143/80 H Pulse Oximetry 98 05/31/18 00:00 05/31/18 01:00 05/31/18 02:00 Temperature Pulse Rate 79 72 76 Respiratory Rate Blood Pressure Pulse Oximetry 05/31/18 03:00 05/31/18 04:00 05/31/18 05:00 Temperature 97.4 F L Pulse Rate 69 70 75 Respiratory Rate Blood Pressure 143/76 H Pulse Oximetry 98 05/31/18 06:00 05/31/18 07:00 05/31/18 07:22 Temperature 97.8 F Pulse Rate 87 69 70 Respiratory Rate 16 Blood Pressure 149/79 H Pulse Oximetry 99 98 05/31/18 08:00 05/31/18 09:00 05/31/18 10:00 Temperature Pulse Rate 77 72 73 Respiratory Rate Blood Pressure Pulse Oximetry 99 05/31/18 11:00 05/31/18 12:00 05/31/18 13:00 Temperature 97.9 F Pulse Rate 76 69 65 Respiratory Rate Blood Pressure 143/75 H Pulse Oximetry 99 05/31/18 14:00 05/31/18 14:05 05/31/18 15:00 Temperature 98.8 F Pulse Rate 75 94 H 75 Respiratory Rate 16 Blood Pressure 142/59 H Pulse Oximetry 98 Intake & Output 05/30/18 05/31/18 05/31/18 18:59 06:59 18:59 Intake Total 700 / 700 580 / 580 100 / 100 Output Total 1300 / 1300 1600 / 1600 Balance -600 / -600 -1020 / -1020 100 / 100 Weight 102.5 kg Intake: IV 100 / 100 100 / 100 100 / 100 Flexbumin 25% Inj 100 ML @ 60 100 / 100 100 / 100 100 / 100 mls/hr IV.SIG Q12H [facility] Rx#: [id number] Oral 600 / 600 480 / 480 Output: Urine 1600 / 1600 Urine Amount (Catheter) 1300 / 1300 Indwelling Urethral Catheter 1300 / 1300 Other: Date of Last Bowel Movement 05/28/18 05/28/18 05/31/18 Narrative: GENERAL: Patient lying in bed watching TV. NAD, AAOx3 SKIN: Significant dryness and evidence of venous stasis on anterior shins bilaterally. HEAD: Atraumatic. Normocephalic. CARDIOVASCULAR: Regular rate and rhythm. RESPIRATORY: Clear to auscultation in all lung watkins bilaterally. No accessory muscle use. Breath sounds equal bilaterally. GASTROINTESTINAL: Abdomen obese but soft, non-tender, less distention than previously noted. MUSCULOSKELETAL: Extremities without clubbing, cyanosis. 1+ pitting edema improving on anterior shins, dependent edema on posterior thighs. No obvious deformities. GENITOURINARY: Scrotal swelling appears more edematous than yesterday. Swelling extends up and around the penis to the tip of the meatus. Scrotal skin less tense than on previous exams. Patient now appears to have penile discharge at urethral meatus along with erythema and irritation due to the Chung catheter. Base of the glans not visualized due to pain on retraction of foreskin. NEUROLOGICAL: Awake and alert. No obvious cranial nerve deficits. - Urinary Catheter Management Indwelling Urethral Catheter Cath placed during this visit: yes Reason for continuing: Acute urinary retention Insertion date: 05/22/18 Insertion time: 12:37 Assessment and Plan - Assessment (1) Acute kidney injury superimposed on chronic kidney disease Code(s): N17.9 - Acute kidney failure, unspecified; N18.9 - Chronic kidney disease, unspecified Status: Acute Plan: Creatinine 1.8 -> 1.9 -> 2.4 On lasix 80mg IV TID and Metolazone 2.5mg BID for diuresis, UOP decreased from 2.1L -> 650cc/24 hours Serum albumin level 2.9: Added albumin infusion to help mobilize fluids for diuresis. Ongoing anasarca and scrotal edema On Bumex 0.5mg/ hour infusion. Still ongoing edema and possible cardiorenal component of renal dysfunction. Creatinine continue to increase and now 2.6. I will D/C Bumex gtt and start Bumex 2 mg TID. Continue Metolazone. Follow the urine out put and BMP. (2) Hyperlipidemia Code(s): E78.5 - Hyperlipidemia, unspecified Status: Acute Qualifiers: Hyperlipidemia type: unspecified Qualified Code(s): E78.5 - Hyperlipidemia , unspecified Plan: On atorvastatin (3) Edema Code(s): R60.9 - Edema, unspecified Status: Acute Plan: Continue diuresis maintain strict I+O Daily weights Low sodium diet. (4) DM2 (diabetes mellitus, type 2) Code(s): E11.9 - Type 2 diabetes mellitus without complications Status: Acute Qualifiers: Diabetes mellitus liquid sugar fortifier insulin use: with fdc use Diabetes mellitus complication status: with circulatory complication Diabetes mellitus complication detail: with other circulatory complications Qualified Code(s): E11.59 - Type 2 diabetes mellitus with other circulatory complications; Z79.4 - USP (current) use of insulin Plan: Maintain blood sugars between 140 mg/dl to 180 mg/dl while hospitalized. Elevated at times. (5) CHF (congestive heart failure), NYHA class IV Code(s): I50.9 - Heart failure, unspecified Status: Acute Qualifiers: Congestive heart failure type: combined Congestive heart failure chronicity : acute on chronic Qualified Code(s): I50.43 - Acute on chronic combined systolic (congestive) and diastolic (congestive) heart failure Plan: On lasix, patient reports that edema is improving. (6) Elevated troponin Code(s): R74.8 - Abnormal levels of other serum enzymes Status: Acute Plan: Cardiology following
[2018-05-31] MEDS: Bumetanide Inj 25 MG/100 ML BAG IV.CONT SCH (16:49)
[2018-05-31 17:00] LABS: Bacteria,Urine Few /hpf; Bilirubin,Urine Negative (Negative); Color,Urine Yellow (Yellw/Straw); Glucose,Urine (UA) Negative (Negative); Hyaline Casts,Urine 5 /lpf (0-3); Leukocyte Esterase,Urine Moderate (Negative); Mucus,Urine Few /lpf (Occasional); Nitrite,Urine Negative (Negative); Specific Gravity,Urine 1.006 (1.002-1.035)
[2018-05-31 17:32] LABS: Clarity,Urine Hazy (Clear)
[2018-05-31] MEDS: Gabapentin 100 MG Capsule PO SCH (17:48)
[2018-06-01] MEDS: Albumin Human 25% Inj 100 ML IV.SIG SCH ×2 (00:21→12:37)
[2018-06-01] MEDS: Insulin NovoLOG Aspart Correctional Sugar Inj SQ SCH ×5 (02:53→21:21)
[2018-06-01 07:06] LABS: Baso % (Auto) 0.6 % (0.0-2.0); Eos # (Auto) 0.2 th/mm3 (0.0-0.4); Eos % (Auto) 3.1 % (0.0-4.0); Hematocrit 21.6 % (39.0-51.0); Hemoglobin 7.2 gm/dL (13.0-17.0); Lymph # (Auto) 1.8 th/mm3 (1.0-4.8); Lymph % (Auto) 23.8 % (9.0-44.0); Mean Corpuscular HGB Conc 33.6 % (32.0-36.0); Mean Corpuscular Hemoglobin 29.5 pg (27.0-34.0); Mean Platelet Volume 8.7 fL (7.0-11.0); Mono # (Auto) 1.2 th/mm3 (0.0-0.9); Neut # (Auto) 4.2 th/mm3 (1.8-7.7); Neut % (Auto) 56.5 % (16.0-70.0); Platelet Count 208 th/mm3 (150-450); Red Blood Count 2.45 mil/mm3 (4.50-5.90); Red Cell Distribution Width 15.4 % (11.6-17.2); White Blood Count 7.4 th/mm3 (4.0-11.0)
[2018-06-01 07:12] LABS: Alanine Aminotransferase 70 U/L (12-78); Albumin 3.1 g/dL (3.4-5.0); Anion Gap 7 meq/L (5-15); Aspartate Aminotransferase 77 U/L (15-37); Blood Urea Nitrogen 67 mg/dL (7-18); Calcium 8.2 mg/dL (8.5-10.1); Chloride 93 meq/L (98-107); Glomerular Filtration Rate 23 mL/min (>89); Glucose,Random 141 mg/dL (74-106); Magnesium 2.5 mg/dL (1.5-2.5); Phosphorus 4.8 mg/dL (2.5-4.9); Potassium 4.2 meq/L (3.5-5.1); Sodium 136 meq/L (136-145)
[2018-06-01 07:14] LABS: Alkaline Phosphatase 303 U/L (45-117); Total Protein 6.5 g/dL (6.4-8.2)
[2018-06-01] MEDS: Budesonide-Formoterol 160/4.5 MCG 6 GM Inhaler INH SCH ×2 (08:33→21:21)
[2018-06-01] MEDS: Nystatin 100,000 UNITS/GM Powder 15 GM Bottle TOPICAL SCH ×4 (08:33→21:29)
[2018-06-01] MEDS: Pregabalin 75 MG Capsule PO SCH ×2 (08:43→21:20)
[2018-06-01] MEDS: Carvedilol 12.5 MG Tablet PO SCH ×2 (08:43→21:20)
[2018-06-01] MEDS: Enoxaparin Inj 30 MG/0.3 ML Syringe SQ SCH (08:43)
--- NOTE | 2018-06-01 08:43 | P.PNFP ---
Subjective Interval history: Patient seen at bedside this morning. Overnight patient had no acute events. This morning patient appears more animated than usual. He reports having visual hallucinations and seeing what he describes the shapes of people who he talks to but that did not respond back. He says that these figures are there momentarily been disappear. He also reports that his hands have been very very shaky. He reports that his hands flap when he tries to grab things. Patient also experiencing less scrotal/penile pain today. Patient had no further questions. <Joshua Shah - 06/01/18 09:06> Results - Labs Result diagrams: 06/01/18 05:52 06/01/18 05:52 <Jose Monroe - 06/01/18 14:29> Abnormal lab results 05/31/18 05/31/18 05/31/18 Range/Units 15:30 16:44 20:15 RBC (4.50-5.90) mil/mm3 Hgb (13.0-17.0) gm/dL Hct (39.0-51.0) % [place] % (Auto) (0.0-8.0) % [place] # (Auto) (0.0-0.9) th/mm3 Retic Count (0.4-3.0) % VBG pCO2 (44-48) mmHG VBG pO2 (35-40) mmHG VBG HCO3 (22-26) mmol/L VBG O2 Saturation (70-76) % VBG Base Excess (-2-2) mmol/L Hemoglobin (12.0-16.0) G/DL Chloride (98-107) meq/L Carbon Dioxide (21.0-32.0) meq/L BUN (7-18) mg/dL Creatinine (0.60-1.30) mg/dL Estimated GFR (>89) mL/min POC Glucose 226 H 287 H (68-110) mg/dl Random Glucose (74-106) mg/dL Calcium (8.5-10.1) mg/dL AST (15-37) U/L Alkaline Phosphatase (45-117) U/L Ammonia (11-32) mcmol/L Albumin (3.4-5.0) g/dL Urine Clarity Hazy H (Clear) Urine Protein 100 H (Neg-Trace) mg/dL Urine Occult Blood Moderate H (Negative) Ur Leukocyte Esterase Moderate H (Negative) Urine RBC 20 H (0-3) /hpf Urine WBC 27 H (0-5) /hpf Urine Bacteria Few H (None) /hpf Urine Mucus Few H (Occasional) /lpf 06/01/18 06/01/18 06/01/18 Range/Units 02:51 05:52 05:52 RBC 2.45 L (4.50-5.90) mil/mm3 Hgb 7.2 L (13.0-17.0) gm/dL Hct 21.6 L (39.0-51.0) % [place] % (Auto) 16.0 H (0.0-8.0) % [place] # (Auto) 1.2 H (0.0-0.9) th/mm3 Retic Count (0.4-3.0) % VBG pCO2 (44-48) mmHG VBG pO2 (35-40) mmHG VBG HCO3 (22-26) mmol/L VBG O2 Saturation (70-76) % VBG Base Excess (-2-2) mmol/L Hemoglobin (12.0-16.0) G/DL Chloride 93 L (98-107) meq/L Carbon Dioxide 36.0 H (21.0-32.0) meq/L BUN 67 H (7-18) mg/dL Creatinine 2.80 H (0.60-1.30) mg/dL Estimated GFR 23 L (>89) mL/min POC Glucose 185 H (68-110) mg/dl Random Glucose 141 H (74-106) mg/dL Calcium 8.2 L (8.5-10.1) mg/dL AST 77 H (15-37) U/L Alkaline Phosphatase 303 H (45-117) U/L Ammonia (11-32) mcmol/L Albumin 3.1 L (3.4-5.0) g/dL Urine Clarity (Clear) Urine Protein (Neg-Trace) mg/dL Urine Occult Blood (Negative) Ur Leukocyte Esterase (Negative) Urine RBC (0-3) /hpf Urine WBC (0-5) /hpf Urine Bacteria (None) /hpf Urine Mucus (Occasional) /lpf 06/01/18 06/01/18 06/01/18 Range/Units 05:52 08:32 10:49 RBC (4.50-5.90) mil/mm3 Hgb (13.0-17.0) gm/dL Hct (39.0-51.0) % [place] % (Auto) (0.0-8.0) % [place] # (Auto) (0.0-0.9) th/mm3 Retic Count 3.3 H (0.4-3.0) % VBG pCO2 (44-48) mmHG VBG pO2 (35-40) mmHG VBG HCO3 (22-26) mmol/L VBG O2 Saturation (70-76) % VBG Base Excess (-2-2) mmol/L Hemoglobin (12.0-16.0) G/DL Chloride (98-107) meq/L Carbon Dioxide (21.0-32.0) meq/L BUN (7-18) mg/dL Creatinine (0.60-1.30) mg/dL Estimated GFR (>89) mL/min POC Glucose 184 H (68-110) mg/dl Random Glucose (74-106) mg/dL Calcium (8.5-10.1) mg/dL AST (15-37) U/L Alkaline Phosphatase (45-117) U/L Ammonia 34 H (11-32) mcmol/L Albumin (3.4-5.0) g/dL Urine Clarity (Clear) Urine Protein (Neg-Trace) mg/dL Urine Occult Blood (Negative) Ur Leukocyte Esterase (Negative) Urine RBC (0-3) /hpf Urine WBC (0-5) /hpf Urine Bacteria (None) /hpf Urine Mucus (Occasional) /lpf 06/01/18 06/01/18 Range/Units 12:25 13:39 RBC (4.50-5.90) mil/mm3 Hgb (13.0-17.0) gm/dL Hct (39.0-51.0) % [place] % (Auto) (0.0-8.0) % [place] # (Auto) (0.0-0.9) th/mm3 Retic Count (0.4-3.0) % VBG pCO2 66 H* (44-48) mmHG VBG pO2 53 H (35-40) mmHG VBG HCO3 39 H (22-26) mmol/L VBG O2 Saturation 81 H (70-76) % VBG Base Excess 13.0 H (-2-2) mmol/L Hemoglobin 8.4 L (12.0-16.0) G/DL Chloride (98-107) meq/L Carbon Dioxide (21.0-32.0) meq/L BUN (7-18) mg/dL Creatinine (0.60-1.30) mg/dL Estimated GFR (>89) mL/min POC Glucose 222 H (68-110) mg/dl Random Glucose (74-106) mg/dL Calcium (8.5-10.1) mg/dL AST (15-37) U/L Alkaline Phosphatase (45-117) U/L Ammonia (11-32) mcmol/L Albumin (3.4-5.0) g/dL Urine Clarity (Clear) Urine Protein (Neg-Trace) mg/dL Urine Occult Blood (Negative) Ur Leukocyte Esterase (Negative) Urine RBC (0-3) /hpf Urine WBC (0-5) /hpf Urine Bacteria (None) /hpf Urine Mucus (Occasional) /lpf Short CBC 06/01/18 Range/Units 05:52 WBC 7.4 (4.0-11.0) th/mm3 Hgb 7.2 L (13.0-17.0) gm/dL Hct 21.6 L (39.0-51.0) % Plt Count 208 (150-450) th/mm3 BMP 06/01/18 05:52 Sodium 136 Potassium 4.2 Chloride 93 L Carbon Dioxide 36.0 H BUN 67 H Creatinine 2.80 H Calcium 8.2 L Liver Function 06/01/18 Range/Units 05:52 Total Bilirubin 0.4 (0.2-1.0) mg/dL AST 77 H (15-37) U/L ALT 70 (12-78) U/L Alkaline Phosphatase 303 H (45-117) U/L Albumin 3.1 L (3.4-5.0) g/dL Urine 05/31/18 Range/Units 15:30 Urine Color Yellow (Yellw/Straw) Urine Clarity Hazy H (Clear) Urine pH 6.0 (5.0-8.5) Ur Specific [place] 1.006 (1.002-1.035) Urine Protein 100 H (Neg-Trace) mg/dL Urine Glucose (UA) Negative (Negative) mg/dL <Jose Monroe - 06/01/18 14:29> Abnormal lab results 05/31/18 05/31/18 05/31/18 Range/Units 11:56 15:30 16:44 RBC (4.50-5.90) mil/mm3 Hgb (13.0-17.0) gm/dL Hct (39.0-51.0) % [place] % (Auto) (0.0-8.0) % [place] # (Auto) (0.0-0.9) th/mm3 Chloride (98-107) meq/L Carbon Dioxide (21.0-32.0) meq/L BUN (7-18) mg/dL Creatinine (0.60-1.30) mg/dL Estimated GFR (>89) mL/min POC Glucose 123 H 226 H (68-110) mg/dl Random Glucose (74-106) mg/dL Calcium (8.5-10.1) mg/dL AST (15-37) U/L Alkaline Phosphatase (45-117) U/L Albumin (3.4-5.0) g/dL Urine Clarity Hazy H (Clear) Urine Protein 100 H (Neg-Trace) mg/dL Urine Occult Blood Moderate H (Negative) Ur Leukocyte Esterase Moderate H (Negative) Urine RBC 20 H (0-3) /hpf Urine WBC 27 H (0-5) /hpf Urine Bacteria Few H (None) /hpf Urine Mucus Few H (Occasional) /lpf 05/31/18 06/01/18 06/01/18 Range/Units 20:15 02:51 05:52 RBC (4.50-5.90) mil/mm3 Hgb (13.0-17.0) gm/dL Hct (39.0-51.0) % [place] % (Auto) (0.0-8.0) % [place] # (Auto) (0.0-0.9) th/mm3 Chloride 93 L (98-107) meq/L Carbon Dioxide 36.0 H (21.0-32.0) meq/L BUN 67 H (7-18) mg/dL Creatinine 2.80 H (0.60-1.30) mg/dL Estimated GFR 23 L (>89) mL/min POC Glucose 287 H 185 H (68-110) mg/dl Random Glucose 141 H (74-106) mg/dL Calcium 8.2 L (8.5-10.1) mg/dL AST 77 H (15-37) U/L Alkaline Phosphatase 303 H (45-117) U/L Albumin 3.1 L (3.4-5.0) g/dL Urine Clarity (Clear) Urine Protein (Neg-Trace) mg/dL Urine Occult Blood (Negative) Ur Leukocyte Esterase (Negative) Urine RBC (0-3) /hpf Urine WBC (0-5) /hpf Urine Bacteria (None) /hpf Urine Mucus (Occasional) /lpf 06/01/18 06/01/18 Range/Units 05:52 08:32 RBC 2.45 L (4.50-5.90) mil/mm3 Hgb 7.2 L (13.0-17.0) gm/dL Hct 21.6 L (39.0-51.0) % [place] % (Auto) 16.0 H (0.0-8.0) % [place] # (Auto) 1.2 H (0.0-0.9) th/mm3 Chloride (98-107) meq/L Carbon Dioxide (21.0-32.0) meq/L BUN (7-18) mg/dL Creatinine (0.60-1.30) mg/dL Estimated GFR (>89) mL/min POC Glucose 184 H (68-110) mg/dl Random Glucose (74-106) mg/dL Calcium (8.5-10.1) mg/dL AST (15-37) U/L Alkaline Phosphatase (45-117) U/L Albumin (3.4-5.0) g/dL Urine Clarity (Clear) Urine Protein (Neg-Trace) mg/dL Urine Occult Blood (Negative) Ur Leukocyte Esterase (Negative) Urine RBC (0-3) /hpf Urine WBC (0-5) /hpf Urine Bacteria (None) /hpf Urine Mucus (Occasional) /lpf Short CBC 06/01/18 Range/Units 05:52 WBC 7.4 (4.0-11.0) th/mm3 Hgb 7.2 L (13.0-17.0) gm/dL Hct 21.6 L (39.0-51.0) % Plt Count 208 (150-450) th/mm3 BMP 06/01/18 05:52 Sodium 136 Potassium 4.2 Chloride 93 L Carbon Dioxide 36.0 H BUN 67 H Creatinine 2.80 H Calcium 8.2 L Liver Function 06/01/18 Range/Units 05:52 Total Bilirubin 0.4 (0.2-1.0) mg/dL AST 77 H (15-37) U/L ALT 70 (12-78) U/L Alkaline Phosphatase 303 H (45-117) U/L Albumin 3.1 L (3.4-5.0) g/dL Urine 05/31/18 Range/Units 15:30 Urine Color Yellow (Yellw/Straw) Urine Clarity Hazy H (Clear) Urine pH 6.0 (5.0-8.5) Ur Specific [place] 1.006 (1.002-1.035) Urine Protein 100 H (Neg-Trace) mg/dL Urine Glucose (UA) Negative (Negative) mg/dL <Joshua Shah - 06/01/18 08:43> Physical Exam Vital signs: Vital Signs 05/31/18 15:00 05/31/18 16:00 05/31/18 17:00 Temperature 98.8 F Pulse Rate 75 78 65 Respiratory Rate Blood Pressure 142/59 H Pulse Oximetry 98 05/31/18 18:00 05/31/18 19:00 05/31/18 19:10 Temperature 98.7 F Pulse Rate 68 90 72 Respiratory Rate 16 18 Blood Pressure 135/75 Pulse Oximetry 98 96 05/31/18 20:00 05/31/18 21:00 05/31/18 22:00 Temperature Pulse Rate 79 80 78 Respiratory Rate Blood Pressure Pulse Oximetry 98 05/31/18 23:00 06/01/18 00:00 06/01/18 01:00 Temperature 98.4 F Pulse Rate 77 76 74 Respiratory Rate 17 Blood Pressure 141/55 H Pulse Oximetry 97 06/01/18 02:00 06/01/18 03:00 06/01/18 04:00 Temperature 98.2 F Pulse Rate 72 75 74 Respiratory Rate 17 Blood Pressure 144/68 H Pulse Oximetry 95 06/01/18 05:00 06/01/18 06:00 06/01/18 08:00 Temperature 97.7 F Pulse Rate 69 69 70 Respiratory Rate 16 Blood Pressure 141/69 H Pulse Oximetry 98 06/01/18 08:47 06/01/18 08:53 06/01/18 12:00 Temperature 97.8 F Pulse Rate 70 71 Respiratory Rate 16 18 18 Blood Pressure 138/60 Pulse Oximetry 98 98 Intake & Output 05/31/18 06/01/18 06/01/18 18:59 06:59 18:59 Intake Total 760 / 760 580 / 580 240 / 240 Output Total 1999 1550 / 1550 900 / 900 Balance -1240 / -1240 -970 / -970 -660 / -660 Weight 100 kg Intake: IV 200 / 200 100 / 100 Bumex Inj 25 mg In 100 ml @ 0.5 100 / 100 MG/HR 2 mls/hr IV.CONT .Q24H [facility] Rx#:[id number] Flexbumin 25% Inj 100 ML @ 60 100 / 100 100 / 100 mls/hr IV.SIG Q12H [place] Rx#: [id number] Oral 560 / 560 480 / 480 240 / 240 Output: Urine Amount (Catheter) 1999 1550 / 1550 900 / 900 Indwelling Urethral Catheter 1999 1550 / 1550 900 / 900 Other: Date of Last Bowel Movement 05/31/18 05/31/18 05/31/18 # Bowel Movements 0 <Jose Monroe - 06/01/18 14:29> Vital Signs 05/31/18 09:00 05/31/18 10:00 05/31/18 11:00 Temperature 97.9 F Pulse Rate 72 73 76 Respiratory Rate Blood Pressure 143/75 H Pulse Oximetry 99 05/31/18 12:00 05/31/18 13:00 05/31/18 14:00 Temperature Pulse Rate 69 65 75 Respiratory Rate Blood Pressure Pulse Oximetry 05/31/18 14:05 05/31/18 15:00 05/31/18 16:00 Temperature 98.8 F Pulse Rate 94 H 75 78 Respiratory Rate 16 Blood Pressure 142/59 H Pulse Oximetry 98 05/31/18 17:00 05/31/18 18:00 05/31/18 19:00 Temperature 98.7 F Pulse Rate 65 68 90 Respiratory Rate 16 Blood Pressure 135/75 Pulse Oximetry 98 05/31/18 19:10 05/31/18 20:00 05/31/18 21:00 Temperature Pulse Rate 72 79 80 Respiratory Rate 18 Blood Pressure Pulse Oximetry 96 98 05/31/18 22:00 05/31/18 23:00 06/01/18 00:00 Temperature 98.4 F Pulse Rate 78 77 76 Respiratory Rate 17 Blood Pressure 141/55 H Pulse Oximetry 97 06/01/18 01:00 06/01/18 02:00 06/01/18 03:00 Temperature 98.2 F Pulse Rate 74 72 75 Respiratory Rate 17 Blood Pressure 144/68 H Pulse Oximetry 95 06/01/18 04:00 06/01/18 05:00 06/01/18 06:00 Temperature Pulse Rate 74 69 69 Respiratory Rate Blood Pressure Pulse Oximetry 06/01/18 08:00 Temperature 97.7 F Pulse Rate 71 Respiratory Rate 16 Blood Pressure 141/69 H Pulse Oximetry 98 Intake & Output 05/31/18 06/01/18 06/01/18 18:59 06:59 18:59 Intake Total 760 / 760 580 / 580 Output Total 1999 1550 / 1550 Balance -1240 / -1240 -970 / -970 Weight 100 kg Intake: IV 200 / 200 100 / 100 Bumex Inj 25 mg In 100 ml @ 0.5 100 / 100 MG/HR 2 mls/hr IV.CONT .Q24H [place] Rx#:[id number] Flexbumin 25% Inj 100 ML @ 60 100 / 100 100 / 100 mls/hr IV.SIG Q12H [place] Rx#: [id number] Oral 560 / 560 480 / 480 Output: Urine Amount (Catheter) 1999 1550 / 1550 Indwelling Urethral Catheter 1999 1550 / 1550 Other: Date of Last Bowel Movement 05/31/18 05/31/18 # Bowel Movements 0 <Gavino Joshua Schmitt O - 06/01/18 08:43> Narrative: GENERAL: Patient lying in bed watching TV. NAD, AAOx3 SKIN: Significant dryness and evidence of venous stasis on anterior shins bilaterally. HEAD: Atraumatic. Normocephalic. CARDIOVASCULAR: Regular rate and rhythm. RESPIRATORY: Clear to auscultation in all lung watkins bilaterally. No accessory muscle use. Breath sounds equal bilaterally. GASTROINTESTINAL: Abdomen obese but soft, non-tender, less distention than previously noted. MUSCULOSKELETAL: Extremities without clubbing, cyanosis. Minimal pitting edema improving on anterior shins, dependent edema on posterior thighs. No obvious deformities. GENITOURINARY: Scrotal swelling appears less edematous than yesterday. Swelling extends up and around the penis to the tip of the meatus. Scrotal skin less tense than on previous exams. Penile discharge noted yesterday not present today. Base of the glans visualized after patient was able to retract scrotal and foreskin. Smegma at the base of glans noted. NEUROLOGICAL: Awake and alert. No obvious cranial nerve deficits. Patient has asterixis on extension arms bilateral tremulous flapping. He has no other gross neurological deficits. Judgment and recall intact. <Joshua Shah - 06/01/18 09:06> - Urinary Catheter Management Indwelling Urethral Catheter Cath placed during this visit: no <Jose Monroe - 06/01/18 14:29> yes <Joshua Shah - 06/01/18 10:59> Reason for continuing: Acute urinary retention <Joshua Shah - 06/01/18 08 :43> Insertion date: 05/22/18 <Joshua Shah - 06/01/18 08:43> Insertion time: 12:37 <Joshua Shah - 06/01/18 08:43> Assessment and Plan - Assessment (1) CHF (congestive heart failure), NYHA class IV Code(s): I50.9 - Heart failure, unspecified Status: Acute (2) Asterixis Code(s): R27.8 - Other lack of coordination Status: Acute (3) COPD (chronic obstructive pulmonary disease) Code(s): J44.9 - Chronic obstructive pulmonary disease, unspecified Status: Acute (4) Ischemic cardiomyopathy Code(s): I25.5 - Ischemic cardiomyopathy Status: Acute (5) CAD (coronary artery disease) Code(s): I25.10 - Atherosclerotic heart disease of [place] coronary artery without angina pectoris Status: Acute (6) Balanitis Code(s): N48.1 - Balanitis Status: Acute (7) DM2 (diabetes mellitus, type 2) Code(s): E11.9 - Type 2 diabetes mellitus without complications Status: Acute (8) HTN (hypertension) Code(s): I10 - Essential (primary) hypertension Status: Acute (9) Chronic kidney disease Code(s): N18.9 - Chronic kidney disease, unspecified Status: Acute (10) Diabetic neuropathy Code(s): E11.40 - Type 2 diabetes mellitus with diabetic neuropathy, unspecified Status: Acute (11) Nutrition, metabolism, and development symptoms Code(s): R63.8 - Other symptoms and signs concerning food and fluid intake Status: Acute <Jose Monroe - 06/01/18 14:29> (1) CHF (congestive heart failure), NYHA class IV Code(s): I50.9 - Heart failure, unspecified Status: Acute Plan: Patient continues to improve and diurese. Significantly less edema in legs but continues to have scrotal swelling. Scrotal swelling better but still impressive. -Con't to monitor I's and O's strictly with daily weights * Patient has an indwelling ureteral catheter 05/22 due to scrotal edema -Fluid restriction 1.5 L -Salt restriction 2 g -Continue Bumex 3 times daily and metolazone BID, continue to monitor kidney function per nephrology Patient to be evaluated next week for possible CABG. Patient has improved but still significant scrotal edema, continue to diurese. Related consults: cardiology nephrology CV surgery (2) Asterixis Code(s): R27.8 - Other lack of coordination Status: Acute Plan: Patient reports a 5-day history of shakiness and tremulousness with asterixis on exam this morning. Patient also having visual hallucinations without auditory stimulus. 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 Carlson on board. Continue Symbicort Continue Atrovent BID Albuterol PRN O2 as needed Incentive spirometry (4) Ischemic cardiomyopathy Code(s): I25.5 - Ischemic cardiomyopathy Status: Acute Plan: -EF 35%, FEV1 0.8. Poor surgical candidate. Will be evaluated possibly next or Thursday for surgical intervention. -Continue carvedilol and JEREMY inhibitor (5) CAD (coronary artery disease) Code(s): I25.10 - Atherosclerotic heart disease of [place] coronary artery without angina pectoris Status: Acute Plan: -Patient with history of previous NH -Continue aspirin and Plavix -Continue atorvastatin 80 mg p.o. HS (6) Balanitis Code(s): N48.1 - Balanitis Status: Acute Plan: Patient has significant irritation and pain at the urethral meatus now with urethra discharge. Patient currently has Chung catheter in place. The patient requests that the Chung catheter be kept in place due to difficulty urinating in light of scrotal swelling. -Genital culture pending -Continue nystatin powder to affected area 4 times daily -Follow up with urology recommendations in reference to removal and replacement of Chung catheter -UA positive for moderate leukocyte esterase but no urinary nitrates (7) DM2 (diabetes mellitus, type 2) Code(s): E11.9 - Type 2 diabetes mellitus without complications Status: Acute Plan: Improved control - Levemir 68 units BID - High dose SSI Con't to adjust based on requirements over the course of the day (8) HTN (hypertension) Code(s): I10 - Essential (primary) hypertension Status: Acute Plan: -Continue with carvedilol 12.5 mg twice daily -Continue Lisinopril 2.5 mg daily (9) Chronic kidney disease Code(s): N18.9 - Chronic kidney disease, unspecified Status: Acute Plan: Creatinine: Increased 2.80 from 1.99 Continue with nephrology recommendations GFR 23 Bumex GTT discontinued now 3 times daily along with metolazone Will require outpatient monitoring (10) Diabetic neuropathy Code(s): E11.40 - Type 2 diabetes mellitus with diabetic neuropathy, unspecified Status: Acute Plan: Patient suffers from diabetic neuropathy that is significantly increased after patient has been to diurese. Patient requests to begin gabapentin. -Increase gabapentin from 300 mg daily to 600 mg 3 times daily (11) Nutrition, metabolism, and development symptoms Code(s): R63.8 - Other symptoms and signs concerning food and fluid intake Status: Acute Plan: Fluids: Oral fluids only, restrict to 1.5 L due to CHF Electrolytes: Monitor and replete as needed Nutrition: Cardiac and diabetic diet. Salt restricted 2g daily. <Joshua Shah - 06/01/18 10:57> - Assessment and Plan 63-year-old male presented with acute on chronic CHF exacerbation. Elevated BNP with bilateral 2+ pitting edema, distended abdomen, crackles bilaterally throughout all lung watkins. Patient was started on 40 IV Lasix twice daily and improved. Cardiology consulted due to ejection fraction of less than 20% and plan to perform nuclear viability study to determine if he needs a CABG. Patient also has diabetes, on Levemir 20 units twice daily, high dose sliding scale. ACS rule out was negative. <Joshua Shah - 06/01/18 08:43> - Attending Attestation Patient examined independently of resident physicians on 06/01/18 I personally reviewed daily updates with the patient and answered all questions I have read the above note by the resident physicians and agree with the assessment/plan as discussed with me I was involved in all medical decision making for this patient Jose Monroe MD <Jose Monroe - 06/01/18 14:29> <Joshua Shah - Last Filed: 06/01/18 10:57> (1) CHF (congestive heart failure), NYHA class IV Qualifiers: Congestive heart failure type: combined Congestive heart failure chronicity: acute on chronic Qualified Code(s): I50.43 - Acute on chronic combined systolic (congestive) and diastolic (congestive) heart failure (7) DM2 (diabetes mellitus, type 2) Qualifiers: Diabetes mellitus senior care insulin use: with senior care use Diabetes mellitus complication status: with circulatory complication Diabetes mellitus complication detail: with other circulatory complications Qualified Code(s): E11.59 - Type 2 diabetes mellitus with other circulatory complications; Z79.4 - terminal worker (current) use of insulin (8) HTN (hypertension) Qualifiers: Hypertension type: essential hypertension Qualified Code(s): I10 - Essential (primary) hypertension (9) Chronic kidney disease Qualifiers: Chronic kidney disease stage: unspecified stage Qualified Code(s): N18.9 - Chronic kidney disease, unspecified <Jose Monroe - Last Filed: 06/01/18 14:29> (1) CHF (congestive heart failure), NYHA class IV Qualifiers: Congestive heart failure type: combined Congestive heart failure chronicity: acute on chronic Qualified Code(s): I50.43 - Acute on chronic combined systolic (congestive) and diastolic (congestive) heart failure (7) DM2 (diabetes mellitus, type 2) Qualifiers: Diabetes mellitus senior care 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 use: 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 Diabetes mellitus complication status: with circulatory complication Diabetes mellitus complication detail: with other circulatory complications Qualified Code(s): E11.59 - Type 2 diabetes mellitus with other circulatory complications; Z79.4 - terminal worker (current) use of insulin (8) HTN (hypertension) Qualifiers: Hypertension type: essential hypertension Qualified Code(s): I10 - Essential (primary) hypertension (9) Chronic kidney disease Qualifiers: Chronic kidney disease stage: unspecified stage Qualified Code(s): N18.9 - Chronic kidney disease, unspecified <Joshua Shah O - Last Filed: 06/01/18 10:57> (1) CHF (congestive heart failure), NYHA class IV Qualifiers: Congestive heart failure type: combined Congestive heart failure chronicity: acute on chronic Qualified Code(s): I50.43 - Acute on chronic combined systolic (congestive) and diastolic (congestive) heart failure (7) DM2 (diabetes mellitus, type 2) Qualifiers: Diabetes 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 petroleum terminal plant operator 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 use: 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 Diabetes mellitus complication status: with circulatory complication Diabetes mellitus complication detail: with other circulatory complications Qualified Code(s): E11.59 - Type 2 diabetes mellitus with other circulatory complications; Z79.4 - terminal worker (current) use of insulin (8) HTN (hypertension) Qualifiers: Hypertension type: essential hypertension Qualified Code(s): I10 - Essential (primary) hypertension (9) Chronic kidney disease Qualifiers: Chronic kidney disease stage: unspecified stage Qualified Code(s): N18.9 - Chronic kidney disease, unspecified <Jose Monroe - Last Filed: 06/01/18 14:29> (1) CHF (congestive heart failure), NYHA class IV Qualifiers: Congestive heart failure type: combined Congestive heart failure chronicity: acute on chronic Qualified Code(s): I50.43 - Acute on chronic combined systolic (congestive) and diastolic (congestive) heart failure (7) DM2 (diabetes mellitus, type 2) Qualifiers: Diabetes mellitus senior care insulin use: 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 Diabetes mellitus complication status: with circulatory complication Diabetes mellitus complication detail: with other circulatory complications Qualified Code(s): E11.59 - Type 2 diabetes mellitus with other circulatory complications; Z79.4 - FDC (current) use of insulin (8) HTN (hypertension) Qualifiers: Hypertension type: essential hypertension Qualified Code(s): I10 - Essential (primary) hypertension (9) Chronic kidney disease Qualifiers: Chronic kidney disease stage: unspecified stage Qualified Code(s): N18.9 - Chronic kidney disease, unspecified
[2018-06-01] MEDS: Gabapentin 100 MG Capsule PO SCH ×3 (08:44→17:30)
[2018-06-01] MEDS: Lisinopril 5 MG Tablet PO SCH (08:44)
[2018-06-01] MEDS: Senna/Docusate Sodium 8.6/50 MG Tablet PO SCH ×2 (08:45→21:20)
[2018-06-01] MEDS: Famotidine 20 MG Tablet PO SCH ×2 (08:45→21:20)
--- NOTE | 2018-06-01 12:27 | P.CONURO ---
History of Present Illness Service: Consult date: 06/01/18 Requesting Physician: Joshua Schmitt Reason for Consult: Penile discharge Primary Care Provider: Rainer Farooq Chief Complaint: Dyspnea History of Present Illness: 63-year-old gentleman admitted with exacerbation of congestive heart failure with generalized edema and shortness of breath. Patient did have a Chung catheter placed on May 22 due to the significant amount of edema involving the genitalia. The catheter has been draining well since it was placed and just recently the patient complained of penile pain thus prompting a urologic consultation. Patient has a significant history for BPH and is under the care of my associate Dr. Sinha and managed with tamsulosin 0.4 mg by mouth daily. At the time of consultation, the patient reported that his penile pain as well as the edema of the genitalia was improving. I did notice that the Chung catheter was tethering tightly due to the position of the adherence device. The patient denied a history of gross hematuria. Review of Systems All other systems reviewed negative except as stated in HPI PMFSH - History History Provided By: Patient - Medical History Medical History: Medical History (Last Reviewed 05/31/18 @ 07:59 by Kadie Demarco) COPD (chronic obstructive pulmonary disease) Renal failure Congestive heart failure Diabetes High cholesterol Hypertension PAD (peripheral artery disease) - Surgical History Surgical History: Surgical History (Last Reviewed 05/31/18 @ 07:59 by Kadie Demarco) H/O vascular surgery - Family History Family History: Family History (Last Reviewed 05/24/18 @ 05:49 by Estela Hernandez MD) Other Diabetes - Tobacco History Second Hand Smoke Exposure: No Tobacco Use In Past 30 Days: No Smoking Status: Former smoker Tobacco Type: Cigarettes - Alcohol History How Often Do You Have a Drink Containing Alcohol: Never - Substance Use History Substance History: No History of Abuse - Travel History Recent Travel in the [place] Within the Last 8 Weeks: No Recent Travel Out of the Country Within the Last 8 Weeks: No - Immunization History Tetanus Immunization: Unsure Medications and Allergies Active Medications: Active Medications Acetaminophen (Tylenol) 650 mg PO Q4H PRN PRN Reason: Temp > 100.4, Pain scale 1-2 Last Admin: 05/28/18 09:20 Dose: 650 mg Hydrocodone Bitart/Acetaminophen ([place] 10/325) 1 tab PO Q6H PRN PRN Reason: Pain scale 3-10 Last Admin: 06/01/18 08:47 Dose: 1 tab Al Hydroxide/Mg Hydroxide (Milk Of Magncheri Liq) 30 ml PO Q12H PRN PRN Reason: Mild Constipation Albuterol (Duoneb Neb (Genet)) 1 ampul NEB Q6HR WHILE AWAKE NEB [facility] Last Admin: 06/01/18 08:50 Dose: 1 ampul Aspirin (Ecotrin) 81 mg PO DAILY [facility] Last Admin: 06/01/18 08:45 Dose: 81 mg Atorvastatin Calcium (Lipitor) 80 mg PO HS [facility] Last Admin: 05/31/18 20:18 Dose: 80 mg Benzonatate (Tessalon Perles) 100 mg PO Q8H PRN PRN Reason: COUGH Last Admin: 05/25/18 23:59 Dose: 100 mg Bisacodyl (Dulcolax Supp) 10 mg RECTAL DAILY PRN PRN Reason: SEVERE CONSITIPATION Budesonide/Formoterol Fumarate (Symbicort 160/4.5 Mcg Inh) 2 puff INH BID [facility] Last Admin: 06/01/18 08:33 Dose: 2 puff Bumetanide (Bumex Inj) 2 mg IV.PUSH TID [facility] Last Admin: 06/01/18 08:42 Dose: 2 mg Carvedilol (Coreg) 12.5 mg PO BID [facility] Last Admin: 06/01/18 08:43 Dose: 12.5 mg Clopidogrel Bisulfate (Plavix) 75 mg PO DAILY [facility] Last Admin: 06/01/18 08:45 Dose: 75 mg Dextrose (D50w Vial) 50 ml IV.PUSH UNSCH PRN PRN Reason: PER HYPOGLYCEMIA PROTOCOL Enoxaparin Sodium (Lovenox Inj) 30 mg SQ DAILY [facility] Last Admin: 06/01/18 08:43 Dose: 30 mg Famotidine (Pepcid) 10 mg PO BID [facility] Last Admin: 06/01/18 08:45 Dose: 10 mg Fluticasone Propionate (Flonase Nasal [place]) 1 spray NASAL BID [facility] Last Admin: 06/01/18 08:33 Dose: 1 spray Gabapentin (Neurontin) 200 mg PO TID [facility] Last Admin: 06/01/18 08:44 Dose: 200 mg Glucagon (Glucagon Inj) 1 mg OTHER PRN PRN PRN Reason: for Hypoglycemia Protocol Albumin Human (Flexbumin 25% Inj) 100 mls @ 60 mls/hr IV.SIG Q12H [facility] Last Infusion: 06/01/18 02:05 Dose: Infused Insulin Aspart (Novolog Insulin [place] Sugar Inj) 0 unit SQ ACHS AND 3AM GENET; Protocol Last Admin: 06/01/18 08:45 Dose: 5 unit Insulin Detemir (Levemir Inj) 68 unit SQ DAILY [facility] Last Admin: 05/31/18 12:07 Dose: Not Given Insulin Detemir (Levemir Inj) 58 unit SQ HS [facility] Last Admin: 05/31/18 20:19 Dose: 58 unit Lactulose (Lactulose Liq) 30 ml PO DAILY [facility] Lisinopril (Prinivil) 2.5 mg PO DAILY [facility] Last Admin: 06/01/18 08:44 Dose: 2.5 mg Metolazone (Zaroxolyn) 2.5 mg PO BID [facility] Last Admin: 06/01/18 08:44 Dose: 2.5 mg Neomycin/Polymyxin/Bacitracin (Neosporin Oint) 1 applicatio TOPICAL BID [facility] Nystatin (Mycostatin Powder) 1 applicatio TOPICAL QID [facility] Last Admin: 06/01/18 08:33 Dose: 1 applicatio Ondansetron HCl (Zofran Inj) 4 mg IV.PUSH Q6H PRN PRN Reason: NAUSEA OR VOMITING Pregabalin (Lyrica) 75 mg PO BID [facility] Last Admin: 06/01/18 08:43 Dose: 75 mg Senna/Docusate Sodium (Abiola-Colace) 1 tab PO BID [facility] Last Admin: 06/01/18 08:45 Dose: 1 tab Sennosides (Senokot) 17.2 mg PO Q12H PRN PRN Reason: Moderate Constipation Sodium Chloride (Ns Flush) 2 ml IV.FLUSH PRN PRN PRN Reason: FLUSH AFTER USING IV ACCESS Sodium Chloride (Ns Flush) 2 ml IV.FLUSH BID [facility] Last Admin: 05/31/18 20:20 Dose: 2 ml Tamsulosin HCl (Flomax) 0.4 mg PO [facility] Last Admin: 05/31/18 20:17 Dose: 0.4 mg Allergies Allergy/AdvReac Type Severity Reaction Status Date / Time No Known Allergies Allergy Verified 03/27/18 10:29 Home Medications Medication Instructions Recorded Confirmed Type hydrocodone-acetaminophen [[place]] 1 tab PO Q6H 01/15/18 05/22/18 History insulin regular human [Humulin R 1 sliding scale dose SUB-Q UD 01/15/18 History Regular U-100 Insuln] lidocaine [Lidocaine Pain Relief] 1 patch TOPICAL Q8H 01/15/18 05/22/18 History ranitidine HCl [Zantac] 150 mg PO BID 01/15/18 05/22/18 History sitagliptin-metformin [Janumet] 1 tab PO DAILY 01/15/18 05/22/18 History tamsulosin [Flomax] 0.4 mg PO HS 01/15/18 05/22/18 History Physical Exam Vital Signs - 24 hr 05/31/18 13:00 05/31/18 14:00 05/31/18 14:05 Temperature Pulse Rate 65 75 94 H Respiratory Rate 16 Blood Pressure Pulse Oximetry 05/31/18 15:00 05/31/18 16:00 05/31/18 17:00 Temperature 98.8 F Pulse Rate 75 78 65 Respiratory Rate Blood Pressure 142/59 H Pulse Oximetry 98 05/31/18 18:00 05/31/18 19:00 05/31/18 19:10 Temperature 98.7 F Pulse Rate 68 90 72 Respiratory Rate 16 18 Blood Pressure 135/75 Pulse Oximetry 98 96 05/31/18 20:00 05/31/18 21:00 05/31/18 22:00 Temperature Pulse Rate 79 80 78 Respiratory Rate Blood Pressure Pulse Oximetry 98 05/31/18 23:00 06/01/18 00:00 06/01/18 01:00 Temperature 98.4 F Pulse Rate 77 76 74 Respiratory Rate 17 Blood Pressure 141/55 H Pulse Oximetry 97 06/01/18 02:00 06/01/18 03:00 06/01/18 04:00 Temperature 98.2 F Pulse Rate 72 75 74 Respiratory Rate 17 Blood Pressure 144/68 H Pulse Oximetry 95 06/01/18 05:00 06/01/18 06:00 06/01/18 08:00 Temperature 97.7 F Pulse Rate 69 69 71 Respiratory Rate 16 Blood Pressure 141/69 H Pulse Oximetry 98 06/01/18 08:47 06/01/18 08:53 Temperature Pulse Rate 70 Respiratory Rate 16 18 Blood Pressure Pulse Oximetry 98 Physical Exam: GENERAL: This is a well-nourished, well-developed patient, in no apparent distress. SKIN: No rashes, ecchymoses or lesions. Cool and dry. HEAD: Atraumatic. Normocephalic. No temporal or scalp tenderness. EYES: Pupils equal round and reactive. Extraocular motions intact. No scleral icterus. No injection or drainage. ENT: Nose without bleeding, purulent drainage or septal hematoma. Throat without erythema, tonsillar hypertrophy or exudate. Uvula midline. Airway patent. GASTROINTESTINAL: Abdomen soft, non-tender, nondistended. No hepato-splenomegaly , or palpable masses. No guarding. GENITOURINARY: Moderate edema of the genitalia, Chung catheter in place and tightly tethered due to poor position of the adherence device, urine clear, small amount of whitish discharge noted at the meatus. MUSCULOSKELETAL: Extremities without clubbing, cyanosis, or edema. No joint tenderness, effusion, or edema noted. No calf tenderness. Negative Homans sign bilaterally. NEUROLOGICAL: Awake and alert. Cranial nerves II through XII intact. Motor and sensory grossly within normal limits. Five out of 5 muscle strength in all muscle groups. Normal speech. Laboratory Results - last 24 hr 05/31/18 05/31/18 05/31/18 15:30 16:44 20:15 WBC RBC Hgb Hct MCV MCH MCHC RDW Plt Count MPV Neut % (Auto) Lymph % (Auto) [place] % (Auto) Eos % (Auto) Baso % (Auto) Neut # (Auto) Lymph # (Auto) [place] # (Auto) Eos # (Auto) Baso # (Auto) WBC Differential Differential Comment Sodium Potassium Chloride Carbon Dioxide Anion Gap BUN Creatinine Estimated GFR POC Glucose 226 H 287 H Random Glucose Calcium Phosphorus Magnesium Total Bilirubin AST ALT Alkaline Phosphatase Ammonia Total Protein Albumin Urine Color Yellow Urine Clarity Hazy H Urine pH 6.0 Ur Specific [place] 1.006 Urine Protein 100 H Urine Glucose (UA) Negative Urine Ketones Negative Urine Occult Blood Moderate H Urine Nitrate Negative Urine Bilirubin Negative Urine Urobilinogen Less than 2 Ur Leukocyte Esterase Moderate H Urine RBC 20 H Urine WBC 27 H Urine Bacteria Few H Hyaline Casts 5 Urine Mucus Few H Ur Microscopic Review Not Reportable 06/01/18 06/01/18 06/01/18 02:51 05:52 05:52 WBC 7.4 RBC 2.45 L Hgb 7.2 L Hct 21.6 L MCV 88.0 MCH 29.5 MCHC 33.6 RDW 15.4 Plt Count 208 MPV 8.7 Neut % (Auto) 56.5 Lymph % (Auto) 23.8 [place] % (Auto) 16.0 H Eos % (Auto) 3.1 Baso % (Auto) 0.6 Neut # (Auto) 4.2 Lymph # (Auto) 1.8 [place] # (Auto) 1.2 H Eos # (Auto) 0.2 Baso # (Auto) 0.0 WBC Differential . Differential Comment Auto diff final Sodium 136 Potassium 4.2 Chloride 93 L Carbon Dioxide 36.0 H Anion Gap 7 BUN 67 H Creatinine 2.80 H Estimated GFR 23 L POC Glucose 185 H Random Glucose 141 H Calcium 8.2 L Phosphorus 4.8 Magnesium 2.5 Total Bilirubin 0.4 AST 77 H ALT 70 Alkaline Phosphatase 303 H Ammonia Total Protein 6.5 Albumin 3.1 L Urine Color Urine Clarity Urine pH Ur Specific [place] Urine Protein Urine Glucose (UA) Urine Ketones Urine Occult Blood Urine Nitrate Urine Bilirubin Urine Urobilinogen Ur Leukocyte Esterase Urine RBC Urine WBC Urine Bacteria Hyaline Casts Urine Mucus Ur Microscopic Review 06/01/18 06/01/18 08:32 10:49 WBC RBC Hgb Hct MCV MCH MCHC RDW Plt Count MPV Neut % (Auto) Lymph % (Auto) [place] % (Auto) Eos % (Auto) Baso % (Auto) Neut # (Auto) Lymph # (Auto) [place] # (Auto) Eos # (Auto) Baso # (Auto) WBC Differential Differential Comment Sodium Potassium Chloride Carbon Dioxide Anion Gap BUN Creatinine Estimated GFR POC Glucose 184 H Random Glucose Calcium Phosphorus Magnesium Total Bilirubin AST ALT Alkaline Phosphatase Ammonia 34 H Total Protein Albumin Urine Color Urine Clarity Urine pH Ur Specific [place] Urine Protein Urine Glucose (UA) Urine Ketones Urine Occult Blood Urine Nitrate Urine Bilirubin Urine Urobilinogen Ur Leukocyte Esterase Urine RBC Urine WBC Urine Bacteria Hyaline Casts Urine Mucus Ur Microscopic Review Microbiology 05/31/18 15:30 Genital Culture - Preliminary Genital - Genital Region Result Diagrams: 06/01/18 05:52 06/01/18 05:52 Imaging: ITS Impressions Chest X-Ray 05/23/18 06:00 CONCLUSION: Stable appearance of congestive heart failure with pulmonary edema and bilateral pleural effusions. Myocardial Perfusion Scan Nuc Med 05/26/18 00:00 CONCLUSION: 1. Significantly diminished perfusion involving the LAD and RCA territories has the appearance of myocardial infarction. The only part of the myocardium that appears viable is anterolateral wall. Assessment and Plan - Assessment (1) Urethritis Code(s): N34.2 - Other urethritis Status: Acute (2) Genital edema, male Code(s): N50.89 - Other specified disorders of the male genital organs Status : Acute - Plan Urologic impression: 1. Edema of the genitalia related to generalized process 2. Urethritis 3. Penile discomfort related to tethering of the Chung catheter. 4. Obstructing BPH Recommendations: 1. Neosporin ointment to be applied to the glans penis twice daily until Chung catheter removed 2. Consider removing Chung catheter for a voiding trial once genital edema improved and patient ambulating well. 3. Continue with tamsulosin 0.4 mg daily for BPH 4. Nothing further to add at this time and will be available as needed.
[2018-06-01] MEDS: Insulin Detemir Inj 1,000 UNIT/10 ML Vial SQ SCH ×2 (12:38→21:30)
[2018-06-01 13:18] LABS: Reticulocyte Percent 3.3 % (0.4-3.0)
[2018-06-01 13:54] LABS: VBG Blood Gas Oxygen Content 9.7 Vol % (9.0-17.0); VBG PCO2 66 mmHG (44-48); VBG PH 7.38 (7.360-7.400); VBG PO2 53 mmHG (35-40)
[2018-06-01 15:02] LABS: % Iron Saturation 11.9 % (20-50)
--- NOTE | 2018-06-01 17:18 | P.PNNP ---
Subjective Interval history: Patient is alert, has mild SOB, not eating well. Physical Exam Vital signs: Vital Signs 05/31/18 18:00 05/31/18 19:00 05/31/18 19:10 Temperature 98.7 F Pulse Rate 68 90 72 Respiratory Rate 16 18 Blood Pressure 135/75 Pulse Oximetry 98 96 05/31/18 20:00 05/31/18 21:00 05/31/18 22:00 Temperature Pulse Rate 79 80 78 Respiratory Rate Blood Pressure Pulse Oximetry 98 05/31/18 23:00 06/01/18 00:00 06/01/18 01:00 Temperature 98.4 F Pulse Rate 77 76 74 Respiratory Rate 17 Blood Pressure 141/55 H Pulse Oximetry 97 06/01/18 02:00 06/01/18 03:00 06/01/18 04:00 Temperature 98.2 F Pulse Rate 72 75 74 Respiratory Rate 17 Blood Pressure 144/68 H Pulse Oximetry 95 06/01/18 05:00 06/01/18 06:00 06/01/18 08:00 Temperature 97.7 F Pulse Rate 69 69 70 Respiratory Rate 16 Blood Pressure 141/69 H Pulse Oximetry 98 06/01/18 08:47 06/01/18 08:53 06/01/18 12:00 Temperature 97.8 F Pulse Rate 70 71 Respiratory Rate 16 18 18 Blood Pressure 138/60 Pulse Oximetry 98 98 06/01/18 13:00 06/01/18 14:00 Temperature Pulse Rate 68 70 Respiratory Rate Blood Pressure Pulse Oximetry Intake & Output 05/31/18 06/01/18 06/01/18 18:59 06:59 18:59 Intake Total 760 / 760 580 / 580 240 / 240 Output Total 1999 1550 / 1550 900 / 900 Balance -1240 / -1240 -970 / -970 -660 / -660 Weight 100 kg Intake: IV 200 / 200 100 / 100 Bumex Inj 25 mg In 100 ml @ 0.5 100 / 100 MG/HR 2 mls/hr IV.CONT .Q24H [facility] Rx#:[id number] Flexbumin 25% Inj 100 ML @ 60 100 / 100 100 / 100 mls/hr IV.SIG Q12H [facility] Rx#: [id number] Oral 560 / 560 480 / 480 240 / 240 Output: Urine Amount (Catheter) 1999 1550 / 1550 900 / 900 Indwelling Urethral Catheter 1999 1550 / 1550 900 / 900 Other: Date of Last Bowel Movement 05/31/18 05/31/18 05/31/18 # Bowel Movements 0 Narrative: GENERAL: Patient lying in bed watching TV. NAD, AAOx3 SKIN: Significant dryness and evidence of venous stasis on anterior shins bilaterally. HEAD: Atraumatic. Normocephalic. CARDIOVASCULAR: Regular rate and rhythm. RESPIRATORY: Clear to auscultation in all lung watkins bilaterally. No accessory muscle use. Breath sounds equal bilaterally. GASTROINTESTINAL: Abdomen obese but soft, non-tender, less distention than previously noted. MUSCULOSKELETAL: Extremities without clubbing, cyanosis. Minimal pitting edema improving on anterior shins, dependent edema on posterior thighs. No obvious deformities. GENITOURINARY: Scrotal swelling appears less edematous than yesterday. Swelling extends up and around the penis to the tip of the meatus. Scrotal skin less tense than on previous exams. Penile discharge noted yesterday not present today. Base of the glans visualized after patient was able to retract scrotal and foreskin. Smegma at the base of glans noted. NEUROLOGICAL: Awake and alert. No obvious cranial nerve deficits. Patient has asterixis on extension arms bilateral tremulous flapping. He has no other gross neurological deficits. Judgment and recall intact. - Urinary Catheter Management Indwelling Urethral Catheter Cath placed during this visit: yes Reason for continuing: Acute urinary retention Insertion date: 05/22/18 Insertion time: 12:37 Assessment and Plan - Assessment (1) Acute kidney injury superimposed on chronic kidney disease Code(s): N17.9 - Acute kidney failure, unspecified; N18.9 - Chronic kidney disease, unspecified Status: Acute Plan: Patient with chronic kidney disease and ALISHA.'Has Congestive heart failure and anasarca. Serum albumin level 2.9: Added albumin infusion to help mobilize fluids for diuresis. Ongoing anasarca and scrotal edema On Bumex 0.5mg/ hour infusion. Still ongoing edema and possible cardiorenal component of renal dysfunction. Creatinine continue to increase and now 2.8. On Bumex 2 mg TID. Continue Metolazone. Seen by Urology. Follow the urine out put and BMP. (2) Hyperlipidemia Code(s): E78.5 - Hyperlipidemia, unspecified Status: Acute Qualifiers: Hyperlipidemia type: unspecified Qualified Code(s): E78.5 - Hyperlipidemia , unspecified Plan: On atorvastatin (3) Edema Code(s): R60.9 - Edema, unspecified Status: Acute Plan: Continue diuresis maintain strict I+O Daily weights Low sodium diet. (4) DM2 (diabetes mellitus, type 2) Code(s): E11.9 - Type 2 diabetes mellitus without complications Status: Acute Qualifiers: Diabetes mellitus correction insulin use: with correction use Diabetes mellitus complication status: with circulatory complication Diabetes mellitus complication detail: with other circulatory complications Qualified Code(s): E11.59 - Type 2 diabetes mellitus with other circulatory complications; Z79.4 - vermin exterminator (current) use of insulin Plan: Maintain blood sugars between 140 mg/dl to 180 mg/dl while hospitalized. Elevated at times. (5) CHF (congestive heart failure), NYHA class IV Code(s): I50.9 - Heart failure, unspecified Status: Acute Qualifiers: Congestive heart failure type: combined Congestive heart failure chronicity : acute on chronic Qualified Code(s): I50.43 - Acute on chronic combined systolic (congestive) and diastolic (congestive) heart failure Plan: On lasix, patient reports that edema is improving. (6) Elevated troponin Code(s): R74.8 - Abnormal levels of other serum enzymes Status: Acute Plan: Cardiology following
--- NOTE | 2018-06-01 20:09 | US ---
EXAM DATE: 06/01/2018 8:02 PM EST AGE/SEX: 63 years / Male INDICATIONS: Abnormal labs. CLINICAL DATA: This is the patient's initial encounter. Patient reports that signs and symptoms have been present for 2 days and indicates a pain score of 0/10. MEDICAL/SURGICAL HISTORY: Chronic obstructive pulmonary disease. Hypercholesterolemia. Hypert ension. Diabetes. Peripheral artery disease. Renal failure. CHF. . Vascular surgery. COMPARISON: No prior exams available for comparison. MEASUREMENTS: Liver:__ 24.0 cm. Common Bile Duct:___ 4mm. Right Kidney:___12.0 x 6.9 x 5.1 cm. Left Kidney:___11.6 x 4.9 x 6.0 cm. Spleen:___9.8 cm. FINDINGS: Liver: Increased echogenicity without focal lesion or ductal dilatation. Portal Vein: Hepatopedal flow seen in portal vein. Common Duct: No intraluminal mass or stone visualized. Gallbladder: Mild gallbladder wall thickening. No evidence for cholelithiasis, pericholecystic flui d or sonographic Lockett sign. Pancreas: Not well visualized. Right Kidney: Increased echogenicity. No mass or hydronephrosis. Left Kidney: Increased echogenicity. No mass or hydronephrosis. Ascites: None Pleural Effusion: Bilateral Spleen: No focal lesion. Aorta: Non aneurysmal. IVC: Within normal limits Other: Trace free fluid. CONCLUSION: 1. Enlarged echogenic liver consistent with hepatic steatosis versus medical renal disease. 2. Mild gallbladder wall thickening likely due to hypoalbuminemia/chronic liver dysfunction. This li mits overall sonographic sensitivity for evaluation of cholecystitis. 3. Trace ascites. 4. Echogenic kidneys consistent with medical renal disease. Electronically signed by: Misael Pierre MD Board Certified Radiologist 06/01/2018 8:07 PM MANAN [place]
[2018-06-02] MEDS: Insulin NovoLOG Aspart Correctional Sugar Inj SQ SCH ×5 (04:00→21:10)
[2018-06-02 06:24] LABS: Baso % (Auto) 0.4 % (0.0-2.0); Eos # (Auto) 0.2 th/mm3 (0.0-0.4); Eos % (Auto) 3.4 % (0.0-4.0); Hematocrit 22.8 % (39.0-51.0); Hemoglobin 7.7 gm/dL (13.0-17.0); Lymph # (Auto) 1.6 th/mm3 (1.0-4.8); Lymph % (Auto) 22.4 % (9.0-44.0); Mean Corpuscular Hemoglobin 29.9 pg (27.0-34.0); Mean Corpuscular Volume 87.8 fL (80.0-100.0); Mean Platelet Volume 8.4 fL (7.0-11.0); Mono # (Auto) 0.8 th/mm3 (0.0-0.9); Mono % (Auto) 11.4 % (0.0-8.0); Neut # (Auto) 4.5 th/mm3 (1.8-7.7); Neut % (Auto) 62.4 % (16.0-70.0); Platelet Count 216 th/mm3 (150-450); Red Blood Count 2.59 mil/mm3 (4.50-5.90); Red Cell Distribution Width 15.7 % (11.6-17.2); White Blood Count 7.2 th/mm3 (4.0-11.0)
[2018-06-02 06:38] LABS: Albumin 3.4 g/dL (3.4-5.0); Anion Gap 7 meq/L (5-15); Aspartate Aminotransferase 36 U/L (15-37); Blood Urea Nitrogen 72 mg/dL (7-18); Calcium 8.9 mg/dL (8.5-10.1); Carbon Dioxide 40.5 meq/L (21.0-32.0); Chloride 91 meq/L (98-107); Glomerular Filtration Rate 24 mL/min (>89); Glucose,Random 123 mg/dL (74-106); Magnesium 2.5 mg/dL (1.5-2.5); Sodium 138 meq/L (136-145)
[2018-06-02 06:39] LABS: Alanine Aminotransferase 61 U/L (12-78)
[2018-06-02 06:42] LABS: Alkaline Phosphatase 264 U/L (45-117); Phosphorus 4.5 mg/dL (2.5-4.9); Total Protein 6.9 g/dL (6.4-8.2)
[2018-06-02] MEDS: Insulin Detemir Inj 1,000 UNIT/10 ML Vial SQ SCH ×3 (08:19→21:10)
[2018-06-02] MEDS: Enoxaparin Inj 30 MG/0.3 ML Syringe SQ SCH (08:21)
[2018-06-02] MEDS: Famotidine 20 MG Tablet PO SCH ×2 (08:22→21:11)
[2018-06-02] MEDS: Lisinopril 5 MG Tablet PO SCH (08:22)
[2018-06-02] MEDS: Pregabalin 75 MG Capsule PO SCH (08:22)
[2018-06-02] MEDS: Senna/Docusate Sodium 8.6/50 MG Tablet PO SCH ×2 (08:23→21:11)
[2018-06-02] MEDS: Carvedilol 12.5 MG Tablet PO SCH ×2 (08:23→21:10)
[2018-06-02] MEDS: Gabapentin 100 MG Capsule PO SCH ×3 (08:24→17:05)
[2018-06-02] MEDS: Ferrous Sulfate 325 MG Tablet PO SCH (08:24)
[2018-06-02] MEDS: Nystatin 100,000 UNITS/GM Powder 15 GM Bottle TOPICAL SCH ×4 (08:24→21:11)
[2018-06-02] MEDS: Budesonide-Formoterol 160/4.5 MCG 6 GM Inhaler INH SCH ×2 (08:29→21:11)
[2018-06-02] MEDS ORDERED: Insulin Detemir Inj 1,000 UNIT/10 ML Vial SQ SCH (10:09)
--- NOTE | 2018-06-02 10:14 | P.PNFP ---
Subjective Interval history: Patient states that he is continuing to hallucinate. States images of people that are not there and talks with him. Knows that they are not there, is aware that he is having hallucinations. Not auditory only visual. Occurring both the day and night. Is alert and oriented x3. Endorses improvement in scrotal swelling. Denies shortness of breath or chest pain. No abdominal pain. States that he has not refused any medications; however, documentation shows patient may refused sliding scale and lactulose. Patient continues to endorse difficulty sleeping due to tremors in his hands. Wants to know when they will go away. <Marlee Rhodes N - 06/02/18 10:15> Results - Labs Result diagrams: 06/02/18 05:38 06/02/18 05:38 <Jose Monroe - 06/02/18 21:34> Abnormal lab results 06/02/18 06/02/18 06/02/18 Range/Units 03:48 05:38 05:38 RBC 2.59 L (4.50-5.90) mil/mm3 Hgb 7.7 L (13.0-17.0) gm/dL Hct 22.8 L (39.0-51.0) % [place] % (Auto) 11.4 H (0.0-8.0) % Chloride 91 L (98-107) meq/L Carbon Dioxide 40.5 H (21.0-32.0) meq/L BUN 72 H (7-18) mg/dL Creatinine 2.71 H (0.60-1.30) mg/dL Estimated GFR 24 L (>89) mL/min POC Glucose 177 H (68-110) mg/dl Random Glucose 123 H (74-106) mg/dL Alkaline Phosphatase 264 H (45-117) U/L 06/02/18 06/02/18 06/02/18 Range/Units 07:52 11:30 16:14 RBC (4.50-5.90) mil/mm3 Hgb (13.0-17.0) gm/dL Hct (39.0-51.0) % [place] % (Auto) (0.0-8.0) % Chloride (98-107) meq/L Carbon Dioxide (21.0-32.0) meq/L BUN (7-18) mg/dL Creatinine (0.60-1.30) mg/dL Estimated GFR (>89) mL/min POC Glucose 121 H 124 H 210 H (68-110) mg/dl Random Glucose (74-106) mg/dL Alkaline Phosphatase (45-117) U/L 06/02/18 Range/Units 20:53 RBC (4.50-5.90) mil/mm3 Hgb (13.0-17.0) gm/dL Hct (39.0-51.0) % [place] % (Auto) (0.0-8.0) % Chloride (98-107) meq/L Carbon Dioxide (21.0-32.0) meq/L BUN (7-18) mg/dL Creatinine (0.60-1.30) mg/dL Estimated GFR (>89) mL/min POC Glucose 238 H (68-110) mg/dl Random Glucose (74-106) mg/dL Alkaline Phosphatase (45-117) U/L Short CBC 06/02/18 Range/Units 05:38 WBC 7.2 (4.0-11.0) th/mm3 Hgb 7.7 L (13.0-17.0) gm/dL Hct 22.8 L (39.0-51.0) % Plt Count 216 (150-450) th/mm3 BMP 06/02/18 05:38 Sodium 138 Potassium 4.0 Chloride 91 L Carbon Dioxide 40.5 H BUN 72 H Creatinine 2.71 H Calcium 8.9 Liver Function 06/02/18 Range/Units 05:38 Total Bilirubin 0.4 (0.2-1.0) mg/dL AST 36 (15-37) U/L ALT 61 (12-78) U/L Alkaline Phosphatase 264 H (45-117) U/L Albumin 3.4 (3.4-5.0) g/dL <Jose Monroe - 06/02/18 21:34> Abnormal lab results 06/01/18 06/01/18 06/01/18 Range/Units 05:52 10:49 12:25 RBC (4.50-5.90) mil/mm3 Hgb (13.0-17.0) gm/dL Hct (39.0-51.0) % [place] % (Auto) (0.0-8.0) % Retic Count 3.3 H (0.4-3.0) % Haptoglobin (30-200) mg/dL VBG pCO2 (44-48) mmHG VBG pO2 (35-40) mmHG VBG HCO3 (22-26) mmol/L VBG O2 Saturation (70-76) % VBG Base Excess (-2-2) mmol/L Hemoglobin (12.0-16.0) G/DL Chloride (98-107) meq/L Carbon Dioxide (21.0-32.0) meq/L BUN (7-18) mg/dL Creatinine (0.60-1.30) mg/dL Estimated GFR (>89) mL/min POC Glucose 222 H (68-110) mg/dl Random Glucose (74-106) mg/dL Iron (65-175) mcg/dL % Saturation (20-50) % Alkaline Phosphatase (45-117) U/L Ammonia 34 H (11-32) mcmol/L 06/01/18 06/01/18 06/01/18 Range/Units 13:39 14:30 17:13 RBC (4.50-5.90) mil/mm3 Hgb (13.0-17.0) gm/dL Hct (39.0-51.0) % [place] % (Auto) (0.0-8.0) % Retic Count (0.4-3.0) % Haptoglobin 364 H (30-200) mg/dL VBG pCO2 66 H* (44-48) mmHG VBG pO2 53 H (35-40) mmHG VBG HCO3 39 H (22-26) mmol/L VBG O2 Saturation 81 H (70-76) % VBG Base Excess 13.0 H (-2-2) mmol/L Hemoglobin 8.4 L (12.0-16.0) G/DL Chloride (98-107) meq/L Carbon Dioxide (21.0-32.0) meq/L BUN (7-18) mg/dL Creatinine (0.60-1.30) mg/dL Estimated GFR (>89) mL/min POC Glucose 257 H (68-110) mg/dl Random Glucose (74-106) mg/dL Iron 32 L (65-175) mcg/dL % Saturation 11.9 L (20-50) % Alkaline Phosphatase (45-117) U/L Ammonia (11-32) mcmol/L 06/01/18 06/02/18 06/02/18 Range/Units 20:01 03:48 05:38 RBC 2.59 L (4.50-5.90) mil/mm3 Hgb 7.7 L (13.0-17.0) gm/dL Hct 22.8 L (39.0-51.0) % [place] % (Auto) 11.4 H (0.0-8.0) % Retic Count (0.4-3.0) % Haptoglobin (30-200) mg/dL VBG pCO2 (44-48) mmHG VBG pO2 (35-40) mmHG VBG HCO3 (22-26) mmol/L VBG O2 Saturation (70-76) % VBG Base Excess (-2-2) mmol/L Hemoglobin (12.0-16.0) G/DL Chloride (98-107) meq/L Carbon Dioxide (21.0-32.0) meq/L BUN (7-18) mg/dL Creatinine (0.60-1.30) mg/dL Estimated GFR (>89) mL/min POC Glucose 173 H 177 H (68-110) mg/dl Random Glucose (74-106) mg/dL Iron (65-175) mcg/dL % Saturation (20-50) % Alkaline Phosphatase (45-117) U/L Ammonia (11-32) mcmol/L 06/02/18 06/02/18 Range/Units 05:38 07:52 RBC (4.50-5.90) mil/mm3 Hgb (13.0-17.0) gm/dL Hct (39.0-51.0) % [place] % (Auto) (0.0-8.0) % Retic Count (0.4-3.0) % Haptoglobin (30-200) mg/dL VBG pCO2 (44-48) mmHG VBG pO2 (35-40) mmHG VBG HCO3 (22-26) mmol/L VBG O2 Saturation (70-76) % VBG Base Excess (-2-2) mmol/L Hemoglobin (12.0-16.0) G/DL Chloride 91 L (98-107) meq/L Carbon Dioxide 40.5 H (21.0-32.0) meq/L BUN 72 H (7-18) mg/dL Creatinine 2.71 H (0.60-1.30) mg/dL Estimated GFR 24 L (>89) mL/min POC Glucose 121 H (68-110) mg/dl Random Glucose 123 H (74-106) mg/dL Iron (65-175) mcg/dL % Saturation (20-50) % Alkaline Phosphatase 264 H (45-117) U/L Ammonia (11-32) mcmol/L Short CBC 06/02/18 Range/Units 05:38 WBC 7.2 (4.0-11.0) th/mm3 Hgb 7.7 L (13.0-17.0) gm/dL Hct 22.8 L (39.0-51.0) % Plt Count 216 (150-450) th/mm3 BMP 06/02/18 05:38 Sodium 138 Potassium 4.0 Chloride 91 L Carbon Dioxide 40.5 H BUN 72 H Creatinine 2.71 H Calcium 8.9 Liver Function 06/02/18 Range/Units 05:38 Total Bilirubin 0.4 (0.2-1.0) mg/dL AST 36 (15-37) U/L ALT 61 (12-78) U/L Alkaline Phosphatase 264 H (45-117) U/L Albumin 3.4 (3.4-5.0) g/dL <Marlee Rhodes N - 06/02/18 10:14> - Imaging Impressions Abdomen Ultrasound 06/01/18 00:00 CONCLUSION: 1. Enlarged echogenic liver consistent with hepatic steatosis versus medical renal disease. 2. Mild gallbladder wall thickening likely due to hypoalbuminemia/chronic liver dysfunction. This limits overall sonographic sensitivity for evaluation of cholecystitis. 3. Trace ascites. 4. Echogenic kidneys consistent with medical renal disease. <Marlee Rhodes - 06/02/18 10:14> Physical Exam Vital signs: Vital Signs 06/01/18 22:00 06/01/18 23:00 06/02/18 00:00 Temperature Pulse Rate 72 72 72 Respiratory Rate 18 Blood Pressure 129/73 Pulse Oximetry 98 06/02/18 01:00 06/02/18 02:00 06/02/18 03:00 Temperature 98.3 F Pulse Rate 75 68 70 Respiratory Rate 16 Blood Pressure 139/72 Pulse Oximetry 100 06/02/18 04:00 06/02/18 05:00 06/02/18 06:00 Temperature Pulse Rate 72 68 66 Respiratory Rate Blood Pressure Pulse Oximetry 06/02/18 07:00 06/02/18 08:00 06/02/18 08:20 Temperature 97 F L Pulse Rate 72 69 Respiratory Rate 20 19 Blood Pressure 135/71 Pulse Oximetry 96 06/02/18 09:00 06/02/18 10:00 06/02/18 11:00 Temperature Pulse Rate 70 71 74 Respiratory Rate Blood Pressure Pulse Oximetry 06/02/18 11:14 06/02/18 12:00 06/02/18 12:19 Temperature 97.8 F Pulse Rate 74 74 Respiratory Rate 20 Blood Pressure 141/74 H Pulse Oximetry 96 92 L 06/02/18 14:00 06/02/18 14:38 06/02/18 15:14 Temperature Pulse Rate 75 74 75 Respiratory Rate 20 Blood Pressure Pulse Oximetry 06/02/18 16:00 06/02/18 16:26 06/02/18 17:16 Temperature 97.9 F Pulse Rate 75 72 83 Respiratory Rate 16 Blood Pressure 130/65 Pulse Oximetry 99 06/02/18 20:00 06/02/18 21:03 Temperature 99.4 F Pulse Rate 80 76 Respiratory Rate 18 20 Blood Pressure 149/86 H Pulse Oximetry 97 97 Intake & Output 06/02/18 06/02/18 06/03/18 06:59 18:59 06:59 Intake Total 280 / 280 760 / 760 Output Total 2350 / 2350 2425 / 2425 Balance -2070 / -2070 -1665 / -1665 Weight 100.5 kg Intake: IV 100 / 100 100 / 100 Flexbumin 25% Inj 100 ML @ 60 100 / 100 100 / 100 mls/hr IV.SIG Q12H [facility] Rx#: [id number] Oral 180 / 180 660 / 660 Output: Urine 850 / 850 Urine Amount (Catheter) 1500 / 1500 2425 / 2425 Indwelling Urethral Catheter 1500 / 1500 2425 / 2425 Other: Date of Last Bowel Movement 06/01/18 05/31/18 <Jose Monroe - 06/02/18 21:34> Vital Signs 06/01/18 12:00 06/01/18 13:00 06/01/18 14:00 Temperature 97.8 F Pulse Rate 71 68 70 Respiratory Rate 18 Blood Pressure 138/60 Pulse Oximetry 98 06/01/18 16:00 06/01/18 17:00 06/01/18 17:19 Temperature 98 F Pulse Rate 77 72 77 Respiratory Rate 20 Blood Pressure 163/88 H Pulse Oximetry 98 06/01/18 17:41 06/01/18 18:00 06/01/18 18:15 Temperature Pulse Rate 78 Respiratory Rate 18 18 Blood Pressure Pulse Oximetry 06/01/18 19:00 06/01/18 19:25 06/01/18 20:00 Temperature 97.6 F Pulse Rate 75 72 74 Respiratory Rate 16 18 Blood Pressure 119/72 Pulse Oximetry 97 98 97 06/01/18 21:00 06/01/18 22:00 06/01/18 23:00 Temperature Pulse Rate 70 72 72 Respiratory Rate 18 Blood Pressure 129/73 Pulse Oximetry 98 06/02/18 00:00 06/02/18 01:00 06/02/18 02:00 Temperature Pulse Rate 72 75 68 Respiratory Rate Blood Pressure Pulse Oximetry 06/02/18 03:00 06/02/18 04:00 06/02/18 05:00 Temperature 98.3 F Pulse Rate 70 72 68 Respiratory Rate 16 Blood Pressure 139/72 Pulse Oximetry 100 06/02/18 06:00 06/02/18 08:20 Temperature Pulse Rate 66 Respiratory Rate 19 Blood Pressure Pulse Oximetry Intake & Output 06/01/18 06/02/18 06/02/18 18:59 06:59 18:59 Intake Total 820 / 820 280 / 280 Output Total 2500 / 2500 2350 / 2350 Balance -1680 / -1680 -2070 / -2070 Weight 100.5 kg Intake: IV 100 / 100 100 / 100 Flexbumin 25% Inj 100 ML @ 60 100 / 100 100 / 100 mls/hr IV.SIG Q12H [facility] Rx#: [id number] Oral 720 / 720 180 / 180 Output: Urine 850 / 850 Urine Amount (Catheter) 2500 / 2500 1500 / 1500 Indwelling Urethral Catheter 2500 / 2500 1500 / 1500 Other: Date of Last Bowel Movement 05/31/18 06/01/18 <Abid ShyannMarkusMarlee N - 06/02/18 10:14> Narrative: GENERAL: Patient lying in bed watching TV. NAD, AAOx3 SKIN: Significant dryness and evidence of venous stasis on anterior shins bilaterally. No edema. HEAD: Atraumatic. Normocephalic. CARDIOVASCULAR: Regular rate and rhythm. RESPIRATORY: Occasional wheeze in the bilateral mid lungs, expiratory airflow minimally restricted. No accessory muscle use. Breath sounds equal bilaterally. GASTROINTESTINAL: Abdomen obese. MUSCULOSKELETAL: Extremities without clubbing, cyanosis. Minimal pitting edema improving on anterior shins, dependent edema on posterior thighs. No obvious deformities. GENITOURINARY: Scrotal swelling continues to decrease. Swelling extends up and around the penis to the tip of the meatus. Scrotal skin less tense than on previous exams. Penile discharge noted. NEUROLOGICAL: Awake and alert. No obvious cranial nerve deficits. Patient has asterixis on extension arms bilateral tremulous flapping. He has no other gross neurological deficits. Judgment and recall intact. <Abid ShyannMarlee - 06/02/18 10:14> - Urinary Catheter Management Indwelling Urethral Catheter Cath placed during this visit: no <Jose Monroe - 06/02/18 21:34> yes <Abishital ShyannMarlee N - 06/02/18 14:34> Reason for continuing: Chronic Urinary Retention <Abid R2Marlee N - 06/02/18 10:14> Insertion date: 05/22/18 <Abid R2Marlee N - 06/02/18 10:14> Insertion time: 12:37 <Abid R2Marlee N 06/02/18 10:14> Assessment and Plan - Assessment (1) Hallucinations, visual Code(s): R44.1 - Visual hallucinations Status: Acute (2) Asterixis Code(s): R27.8 - Other lack of coordination Status: Acute (3) Chronic kidney disease Code(s): N18.9 - Chronic kidney disease, unspecified Status: Acute (4) CHF (congestive heart failure), NYHA class IV Code(s): I50.9 - Heart failure, unspecified Status: Acute (5) COPD (chronic obstructive pulmonary disease) Code(s): J44.9 - Chronic obstructive pulmonary disease, unspecified Status: Acute (6) Ischemic cardiomyopathy Code(s): I25.5 - Ischemic cardiomyopathy Status: Acute (7) CAD (coronary artery disease) Code(s): I25.10 - Atherosclerotic heart disease of [place] coronary artery without angina pectoris Status: Acute (8) Balanitis Code(s): N48.1 - Balanitis Status: Acute (9) DM2 (diabetes mellitus, type 2) Code(s): E11.9 - Type 2 diabetes mellitus without complications Status: Acute (10) HTN (hypertension) Code(s): I10 - Essential (primary) hypertension Status: Acute (11) Diabetic neuropathy Code(s): E11.40 - Type 2 diabetes mellitus with diabetic neuropathy, unspecified Status: Acute (12) Nutrition, metabolism, and development symptoms Code(s): R63.8 - Other symptoms and signs concerning food and fluid intake Status: Acute (13) Anemia Code(s): D64.9 - Anemia, unspecified Status: Acute <Jose Monroe - 06/02/18 21:34> (1) Hallucinations, visual Code(s): R44.1 - Visual hallucinations Status: Acute Plan: Differential: Uremic encephalopathy versus hepatic encephalopathy versus infection versus delirium Electrolytes within normal limits VBG shows respiratory acidosis with compensatory metabolic alkalosis Lactulose started 3 times daily Nephrology following, appreciate recs, BUN continuing to rise as a result of significant diuresis but creatinine stable. Con't to monitor Reorient frequently as needed, turn off lights at night and minimize disturbance to prevent delirium Seroquel 25 mg HS for sleep and to address possible acute delirium (2) Asterixis Code(s): R27.8 - Other lack of coordination Status: Acute Plan: Patient reports a 5-day history of shakiness and tremulousness with asterixis on exam this morning. Patient also having visual hallucinations without auditory stimulus. Abdominal ultrasound shows evidence of chronic liver dysfunction which may be secondary to hepatic steatosis AST ALT within normal limits Ammonia level slightly elevated above normal Start lactulose 3 times daily (3) Chronic kidney disease Code(s): N18.9 - Chronic kidney disease, unspecified Status: Acute Plan: Continue with nephrology recommendations Rising BUN from diuresis, Cr stable Con't to monitor BMP and diurese due to significant residual edema Will require outpatient monitoring (4) CHF (congestive heart failure), NYHA class IV Code(s): I50.9 - Heart failure, unspecified Status: Acute Plan: Patient continues to improve and diurese. Daily weights have been decreasing since admission -Con't to monitor I's and O's strictly with daily weights * Patient has an indwelling ureteral catheter 05/22 due to scrotal edema -Fluid restriction 1.5 L -Salt restriction 2 g -Continue Bumex 3 times daily and metolazone BID, continue to monitor kidney function per nephrology Patient to be evaluated next week for possible CABG. Patient has improved but still significant scrotal edema, continue to diurese. 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 Occasional wheezing and slightly was instructed airflow on exam today Continue Symbicort Add duo nebs 3 times daily Albuterol PRN O2 as needed Incentive spirometry (6) Ischemic cardiomyopathy Code(s): I25.5 - Ischemic cardiomyopathy Status: Acute Plan: -EF 35%, FEV1 0.8. Poor surgical candidate. Will be evaluated possibly next or Thursday for surgical intervention-CABG. -Continue carvedilol and JEREMY inhibitor (7) CAD (coronary artery disease) Code(s): I25.10 - Atherosclerotic heart disease of [place] coronary artery without angina pectoris Status: Acute Plan: -Patient with history of previous [place] -Continue aspirin and Plavix -Continue atorvastatin 80 mg p.o. HS (8) Balanitis Code(s): N48.1 - Balanitis Status: Acute Plan: Patient has significant irritation and pain at the urethral meatus now with urethra discharge. Patient currently has Chung catheter in place. The patient requests that the Chung catheter be kept in place due to difficulty urinating in light of scrotal swelling. -Genital culture pending -Continue nystatin powder to affected area 4 times daily (9) DM2 (diabetes mellitus, type 2) Code(s): E11.9 - Type 2 diabetes mellitus without complications Status: Acute Plan: Improved control - Levemir 58 units in the AM units, 58 units in the p.m. Hold if blood glucose - Med dose SSI Con't to adjust based on requirements over the course of the day (10) HTN (hypertension) Code(s): I10 - Essential (primary) hypertension Status: Acute Plan: -Continue with carvedilol 12.5 mg twice daily -Continue Lisinopril 2.5 mg daily (11) Diabetic neuropathy Code(s): E11.40 - Type 2 diabetes mellitus with diabetic neuropathy, unspecified Status: Acute Plan: On home Lyrica 75 mg daily. Patient endorsed worsening neuropathy while inpatient and requested gabapentin at a high dose to alleviate his symptoms as they have in the past Was started on gabapentin 200 mg 3 times daily while inpatient - May take off Lyrica and increase gabapentin as needed (12) Nutrition, metabolism, and development symptoms Code(s): R63.8 - Other symptoms and signs concerning food and fluid intake Status: Acute Plan: Fluids: Oral fluids only, restrict to 1.5 L due to CHF Electrolytes: Monitor and replete as needed Nutrition: Cardiac and diabetic diet. Salt restricted 2g daily. (13) Anemia Code(s): D64.9 - Anemia, unspecified Status: Acute Plan: Normocytic Hemoglobin today 7.7. Aggressively decreasing from 10.5 on admission Reticulocyte count elevated at 3.3 Haptoglobin elevated Iron studies show iron deficiency anemia Likely mixed picture with anemia of chronic disease, iron deficiency anemia, and possible hemolysis Continue to trend CBC/H&H Begin iron supplementation Order blood smear Hemoccult pending <Marlee Rhodes 06/02/18 14:31> - Assessment and Plan 63-year-old male presented with acute on chronic CHF exacerbation. Elevated BNP with bilateral 2+ pitting edema, distended abdomen, crackles bilaterally throughout all lung watkins. Patient was started on 40 IV Lasix twice daily and improved. Cardiology consulted due to ejection fraction of less than 20% and plan to perform nuclear viability study to determine if he needs a CABG. Patient also has diabetes, on Levemir 20 units twice daily, high dose sliding scale. ACS rule out was negative. Patient is continued to be diuresed, followed by nephrology, and insulin regimen adjusted to better control blood sugars. Developed balanitis and urethritis, was placed on nystatin and neomycin ointment to control symptoms. Urinalysis suggestive of infection. Urine culture ordered <Marlee Rhodes 06/02/18 10:14> Discharge Planning: Likely Tomorrow or Thursday <Marlee Rhodes 06/02/18 14:34> - Attending Attestation Pt. examined independently from resident physicians today on medicine rounds I have read the above note and agree with the assessment/plan as discussed with me I was involved in all medical decision making for this patient Jose Monroe MD <Jose Monroe - 06/02/18 21:34> <Abid Marlee Boothe N - Last Filed: 06/02/18 14:31> (3) Chronic kidney disease Qualifiers: Chronic kidney disease stage: unspecified stage Qualified Code(s): N18.9 - Chronic kidney disease, unspecified (4) CHF (congestive heart failure), NYHA class IV Qualifiers: Congestive heart failure type: combined Congestive heart failure chronicity: acute on chronic Qualified Code(s): I50.43 - Acute on chronic combined systolic (congestive) and diastolic (congestive) heart failure (9) DM2 (diabetes mellitus, type 2) Qualifiers: Diabetes mellitus medical terminologist insulin use: with medical terminologist use Diabetes mellitus complication status: with circulatory complication Diabetes mellitus complication detail: with other circulatory complications Qualified Code(s): E11.59 - Type 2 diabetes mellitus with other circulatory complications; Z79.4 - terminal computer operator (current) use of insulin (10) HTN (hypertension) Qualifiers: Hypertension type: essential hypertension Qualified Code(s): I10 - Essential (primary) hypertension (13) Anemia Qualifiers: Anemia type: unspecified type Qualified Code(s): D64.9 - Anemia, unspecified <Jose Monroe - Last Filed: 06/02/18 21:34> (3) Chronic kidney disease Qualifiers: Chronic kidney disease stage: unspecified stage Qualified Code(s): N18.9 - Chronic kidney disease, unspecified (4) CHF (congestive heart failure), NYHA class IV Qualifiers: Congestive heart failure type: combined Congestive heart failure chronicity: acute on chronic Qualified Code(s): I50.43 - Acute on chronic combined systolic (congestive) and diastolic (congestive) heart failure (9) DM2 (diabetes mellitus, type 2) Qualifiers: Diabetes mellitus fpc insulin use: with fpc use Diabetes mellitus complication status: with circulatory complication Diabetes mellitus complication detail: with other circulatory complications Qualified Code(s): E11.59 - Type 2 diabetes mellitus with other circulatory complications; Z79.4 - group home (current) use of insulin (10) HTN (hypertension) Qualifiers: Hypertension type: essential hypertension Qualified Code(s): I10 - Essential (primary) hypertension (13) Anemia Qualifiers: Anemia type: unspecified type Qualified Code(s): D64.9 - Anemia, unspecified <Abid R2Marlee N - Last Filed: 06/02/18 14:31> (3) Chronic kidney disease Qualifiers: Chronic kidney disease stage: unspecified stage Qualified Code(s): N18.9 - Chronic kidney disease, unspecified (4) CHF (congestive heart failure), NYHA class IV Qualifiers: Congestive heart failure type: combined Congestive heart failure chronicity: acute on chronic Qualified Code(s): I50.43 - Acute on chronic combined systolic (congestive) and diastolic (congestive) heart failure (9) DM2 (diabetes mellitus, type 2) Qualifiers: Diabetes mellitus fpc insulin use: with fpc use Diabetes mellitus complication status: with circulatory complication Diabetes mellitus complication detail: with other circulatory complications Qualified Code(s): E11.59 - Type 2 diabetes mellitus with other circulatory complications; Z79.4 - group home (current) use of insulin (10) HTN (hypertension) Qualifiers: Hypertension type: essential hypertension Qualified Code(s): I10 - Essential (primary) hypertension (13) Anemia Qualifiers: Anemia type: unspecified type Qualified Code(s): D64.9 - Anemia, unspecified <Jose Monroe - Last Filed: 06/02/18 21:34> (3) Chronic kidney disease Qualifiers: Chronic kidney disease stage: unspecified stage Qualified Code(s): N18.9 - Chronic kidney disease, unspecified (4) CHF (congestive heart failure), NYHA class IV Qualifiers: Congestive heart failure type: combined Congestive heart failure chronicity: acute on chronic Qualified Code(s): I50.43 - Acute on chronic combined systolic (congestive) and diastolic (congestive) heart failure (9) DM2 (diabetes mellitus, type 2) Qualifiers: Diabetes mellitus fpc insulin use: with medical terminologist use Diabetes mellitus complication status: with circulatory complication Diabetes mellitus complication detail: with other circulatory complications Qualified Code(s): E11.59 - Type 2 diabetes mellitus with other circulatory complications; Z79.4 - group home (current) use of insulin (10) HTN (hypertension) Qualifiers: Hypertension type: essential hypertension Qualified Code(s): I10 - Essential (primary) hypertension (13) Anemia Qualifiers: Anemia type: unspecified type Qualified Code(s): D64.9 - Anemia, unspecified
--- NOTE | 2018-06-02 11:33 | P.PNCV ---
- Note Subjective/Hospital Course: 63-year-old gentleman with known multivessel disease and ejection fraction of less than 20%, who has had multiple admissions for congestive heart failure and a cardiac catheterization fairly recently showing severe multivessel disease. Was deemed not a candidate for surgery2/2 high-risk for surgical intervention based on his poor LV function and severe COPD with an FEV1 of 0.8 liters. He has been put on BiPAP and given diuresis and is already feeling notably better, we were reconsulted for re-evaluation for candidacy for surgery. PAST MEDICAL HISTORY: . Ischemic cardiomyopathy, ejection fraction less than 20%, Chronic systolic congestive heart failure, Severe multivessel coronary disease, Hypertension, Hyperlipidemia. 05/27 viability test noted : viability in anterolateral wall / EF 30 % recommend maximizing medical therapy for now for Heart Failure/ Meds/ compliance pt can be dc to inpt SNF from our standpoint for continued monitoring and compliance if unable to place in SNF, then will eval for surgery next / thursday , will need to be off plavix for 3-5 days 05/31 worsening renal indices, on Bumex gtt legs have improved, still has significant scrotal edema still recommend SNF placement to allow pt to recover then eval in office for timing for surgery 06/02 pt having some hallucinations last pm still has significant scrotal edema / urology following still recommend maximizing medical therapy / dc to SNF/ [facility] or home with [facility], then f/u with Dr Hernandez for timing of surgery Objective: Vital Signs - 24 hr 06/01/18 12:00 06/01/18 13:00 06/01/18 14:00 Temperature 97.8 F Pulse Rate 71 68 70 Respiratory Rate 18 Blood Pressure 138/60 Pulse Oximetry 98 06/01/18 16:00 06/01/18 17:00 06/01/18 17:19 Temperature 98 F Pulse Rate 77 72 77 Respiratory Rate 20 Blood Pressure 163/88 H Pulse Oximetry 98 06/01/18 17:41 06/01/18 18:00 06/01/18 18:15 Temperature Pulse Rate 78 Respiratory Rate 18 18 Blood Pressure Pulse Oximetry 06/01/18 19:00 06/01/18 19:25 06/01/18 20:00 Temperature 97.6 F Pulse Rate 75 72 74 Respiratory Rate 16 18 Blood Pressure 119/72 Pulse Oximetry 97 98 97 06/01/18 21:00 06/01/18 22:00 06/01/18 23:00 Temperature Pulse Rate 70 72 72 Respiratory Rate 18 Blood Pressure 129/73 Pulse Oximetry 98 06/02/18 00:00 06/02/18 01:00 06/02/18 02:00 Temperature Pulse Rate 72 75 68 Respiratory Rate Blood Pressure Pulse Oximetry 06/02/18 03:00 06/02/18 04:00 06/02/18 05:00 Temperature 98.3 F Pulse Rate 70 72 68 Respiratory Rate 16 Blood Pressure 139/72 Pulse Oximetry 100 06/02/18 06:00 06/02/18 07:00 06/02/18 08:00 Temperature 97 F L Pulse Rate 66 72 69 Respiratory Rate 20 Blood Pressure 135/71 Pulse Oximetry 96 06/02/18 08:20 06/02/18 09:00 06/02/18 10:00 Temperature Pulse Rate 70 71 Respiratory Rate 19 Blood Pressure Pulse Oximetry 06/02/18 11:00 06/02/18 11:14 Temperature Pulse Rate 74 Respiratory Rate Blood Pressure Pulse Oximetry 96 Labs: Laboratory Results - last 12 hr 06/02/18 06/02/18 06/02/18 03:48 05:38 05:38 WBC 7.2 RBC 2.59 L Hgb 7.7 L Hct 22.8 L MCV 87.8 MCH 29.9 MCHC 34.0 RDW 15.7 Plt Count 216 MPV 8.4 Neut % (Auto) 62.4 Lymph % (Auto) 22.4 Stephenson % (Auto) 11.4 H Eos % (Auto) 3.4 Baso % (Auto) 0.4 Neut # (Auto) 4.5 Lymph # (Auto) 1.6 Stephenson # (Auto) 0.8 Eos # (Auto) 0.2 Baso # (Auto) 0.0 WBC Differential . Differential Comment Auto diff final Sodium 138 Potassium 4.0 Chloride 91 L Carbon Dioxide 40.5 H Anion Gap 7 BUN 72 H Creatinine 2.71 H Estimated GFR 24 L POC Glucose 177 H Random Glucose 123 H Calcium 8.9 Phosphorus 4.5 Magnesium 2.5 Ferritin Total Bilirubin 0.4 AST 36 ALT 61 Alkaline Phosphatase 264 H Total Protein 6.9 Albumin 3.4 Vitamin B12 06/02/18 06/02/18 06/02/18 05:38 05:38 07:52 WBC RBC Hgb Hct MCV MCH MCHC RDW Plt Count MPV Neut % (Auto) Lymph % (Auto) Stephenson % (Auto) Eos % (Auto) Baso % (Auto) Neut # (Auto) Lymph # (Auto) Stephenson # (Auto) Eos # (Auto) Baso # (Auto) WBC Differential Differential Comment Sodium Potassium Chloride Carbon Dioxide Anion Gap BUN Creatinine Estimated GFR POC Glucose 121 H Random Glucose Calcium Phosphorus Magnesium Ferritin 74 Total Bilirubin AST ALT Alkaline Phosphatase Total Protein Albumin Vitamin B12 563 06/02/18 11:30 WBC RBC Hgb Hct MCV MCH MCHC RDW Plt Count MPV Neut % (Auto) Lymph % (Auto) Stephenson % (Auto) Eos % (Auto) Baso % (Auto) Neut # (Auto) Lymph # (Auto) Stephenson # (Auto) Eos # (Auto) Baso # (Auto) WBC Differential Differential Comment Sodium Potassium Chloride Carbon Dioxide Anion Gap BUN Creatinine Estimated GFR POC Glucose 124 H Random Glucose Calcium Phosphorus Magnesium Ferritin Total Bilirubin AST ALT Alkaline Phosphatase Total Protein Albumin Vitamin B12 Result Diagrams: 06/02/18 05:38 06/02/18 05:38 - Plan (1) Hyperlipidemia (2) DM2 (diabetes mellitus, type 2) (3) HTN (hypertension) (4) CHF (congestive heart failure), NYHA class IV (5) Chronic kidney disease (1) Hyperlipidemia Qualifiers: Hyperlipidemia type: unspecified Qualified Code(s): E78.5 - Hyperlipidemia, unspecified (2) DM2 (diabetes mellitus, type 2) Qualifiers: Diabetes mellitus fpc insulin use: with terminal worker use Diabetes mellitus complication status: with circulatory complication Diabetes mellitus complication detail: with other circulatory complications Qualified Code(s): E11.59 - Type 2 diabetes mellitus with other circulatory complications; 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 (3) HTN (hypertension) Qualifiers: Hypertension type: essential hypertension Qualified Code(s): I10 - Essential (primary) hypertension (4) CHF (congestive heart failure), NYHA class IV Qualifiers: Congestive heart failure type: combined Congestive heart failure chronicity: acute on chronic Qualified Code(s): I50.43 - Acute on chronic combined systolic (congestive) and diastolic (congestive) heart failure (5) Chronic kidney disease Qualifiers: Chronic kidney disease stage: unspecified stage Qualified Code(s): N18.9 - Chronic kidney disease, unspecified
[2018-06-02] MEDS: Albumin Human 25% Inj 100 ML IV.SIG SCH ×3 (11:35→23:14)
--- NOTE | 2018-06-02 12:10 | P.PNNP ---
Subjective Interval history: Patient is alert, oriented, occ. has hallucination and has jerky movements of arms. Physical Exam Vital signs: Vital Signs 06/01/18 13:00 06/01/18 14:00 06/01/18 16:00 Temperature Pulse Rate 68 70 77 Respiratory Rate Blood Pressure Pulse Oximetry 06/01/18 17:00 06/01/18 17:19 06/01/18 17:41 Temperature 98 F Pulse Rate 72 77 Respiratory Rate 20 18 Blood Pressure 163/88 H Pulse Oximetry 98 06/01/18 18:00 06/01/18 18:15 06/01/18 19:00 Temperature 97.6 F Pulse Rate 78 75 Respiratory Rate 18 16 Blood Pressure 119/72 Pulse Oximetry 97 06/01/18 19:25 06/01/18 20:00 06/01/18 21:00 Temperature Pulse Rate 72 74 70 Respiratory Rate 18 Blood Pressure Pulse Oximetry 98 97 06/01/18 22:00 06/01/18 23:00 06/02/18 00:00 Temperature Pulse Rate 72 72 72 Respiratory Rate 18 Blood Pressure 129/73 Pulse Oximetry 98 06/02/18 01:00 06/02/18 02:00 06/02/18 03:00 Temperature 98.3 F Pulse Rate 75 68 70 Respiratory Rate 16 Blood Pressure 139/72 Pulse Oximetry 100 06/02/18 04:00 06/02/18 05:00 06/02/18 06:00 Temperature Pulse Rate 72 68 66 Respiratory Rate Blood Pressure Pulse Oximetry 06/02/18 07:00 06/02/18 08:00 06/02/18 08:20 Temperature 97 F L Pulse Rate 72 69 Respiratory Rate 20 19 Blood Pressure 135/71 Pulse Oximetry 96 06/02/18 09:00 06/02/18 10:00 06/02/18 11:00 Temperature Pulse Rate 70 71 74 Respiratory Rate Blood Pressure Pulse Oximetry 06/02/18 11:14 Temperature Pulse Rate Respiratory Rate Blood Pressure Pulse Oximetry 96 Intake & Output 06/01/18 06/02/18 06/02/18 18:59 06:59 18:59 Intake Total 820 / 820 280 / 280 100 / 100 Output Total 2500 / 2500 2350 / 2350 Balance -1680 / -1680 -2070 / -2070 100 / 100 Weight 100.5 kg Intake: IV 100 / 100 100 / 100 100 / 100 Flexbumin 25% Inj 100 ML @ 60 100 / 100 100 / 100 100 / 100 mls/hr IV.SIG Q12H [facility] Rx#: [id number] Oral 720 / 720 180 / 180 Output: Urine 850 / 850 Urine Amount (Catheter) 2500 / 2500 1500 / 1500 Indwelling Urethral Catheter 2500 / 2500 1500 / 1500 Other: Date of Last Bowel Movement 05/31/18 06/01/18 05/31/18 Narrative: GENERAL: Patient lying in bed watching TV. NAD, AAOx3 SKIN: Significant dryness and evidence of venous stasis on anterior shins bilaterally. No edema. HEAD: Atraumatic. Normocephalic. CARDIOVASCULAR: Regular rate and rhythm. RESPIRATORY: Occasional wheeze in the bilateral mid lungs, expiratory airflow minimally restricted. No accessory muscle use. Breath sounds equal bilaterally. GASTROINTESTINAL: Abdomen obese. MUSCULOSKELETAL: Extremities without clubbing, cyanosis. Minimal pitting edema improving on anterior shins, dependent edema on posterior thighs. No obvious deformities. GENITOURINARY: Scrotal swelling continues to decrease. Swelling extends up and around the penis to the tip of the meatus. Scrotal skin less tense than on previous exams. Penile discharge noted. NEUROLOGICAL: Awake and alert. No obvious cranial nerve deficits. Patient has asterixis on extension arms bilateral tremulous flapping. He has no other gross neurological deficits. Judgment and recall intact. - Urinary Catheter Management Indwelling Urethral Catheter Cath placed during this visit: yes Reason for continuing: Chronic Urinary Retention Insertion date: 05/22/18 Insertion time: 12:37 Assessment and Plan - Assessment (1) Acute kidney injury superimposed on chronic kidney disease Code(s): N17.9 - Acute kidney failure, unspecified; N18.9 - Chronic kidney disease, unspecified Status: Acute Plan: Patient with chronic kidney disease and ALISHA.'Has Congestive heart failure and anasarca. Serum albumin level 2.9: Added albumin infusion to help mobilize fluids for diuresis. Ongoing anasarca and scrotal edema On Bumex 0.5mg/ hour infusion. Still ongoing edema and possible cardiorenal component of renal dysfunction. Creatinine is stable now at 2.7, BUN increasing, K is normal. On Bumex 2 mg TID. Continue Metolazone. Seen by Urology. Clinically not uremic, Creatinine stable. Ammonia was slightly elevated started on Lactulose. If BUN and Creatinine keep worsening, will consider HD. Follow the urine out put and BMP. (2) Hyperlipidemia Code(s): E78.5 - Hyperlipidemia, unspecified Status: Acute Qualifiers: Hyperlipidemia type: unspecified Qualified Code(s): E78.5 - Hyperlipidemia , unspecified Plan: On atorvastatin (3) Edema Code(s): R60.9 - Edema, unspecified Status: Acute Plan: Continue diuresis maintain strict I+O Daily weights Low sodium diet. (4) DM2 (diabetes mellitus, type 2) Code(s): E11.9 - Type 2 diabetes mellitus without complications Status: Acute Qualifiers: Diabetes mellitus nursing home insulin use: with predatory animal exterminator use Diabetes mellitus complication status: with circulatory complication Diabetes mellitus complication detail: with other circulatory complications Qualified Code(s): E11.59 - Type 2 diabetes mellitus with other circulatory complications; Z79.4 - watermelon inspector (current) use of insulin Plan: Maintain blood sugars between 140 mg/dl to 180 mg/dl while hospitalized. Elevated at times. (5) CHF (congestive heart failure), NYHA class IV Code(s): I50.9 - Heart failure, unspecified Status: Acute Qualifiers: Congestive heart failure type: combined Congestive heart failure chronicity : acute on chronic Qualified Code(s): I50.43 - Acute on chronic combined systolic (congestive) and diastolic (congestive) heart failure Plan: On lasix, patient reports that edema is improving. (6) Elevated troponin Code(s): R74.8 - Abnormal levels of other serum enzymes Status: Acute Plan: Cardiology following
--- NOTE | 2018-06-02 18:51 | P.PNCA ---
Subjective Interval history: No events overnight Continues to diureses well Medications and Allergies Active Medications: Active Medications Acetaminophen (Tylenol) 650 mg PO Q4H PRN PRN Reason: Temp > 100.4, Pain scale 1-2 Last Admin: 05/28/18 09:20 Dose: 650 mg Hydrocodone Bitart/Acetaminophen (Pyote 10/325) 1 tab PO Q6H PRN PRN Reason: Pain scale 3-10 Last Admin: 06/02/18 08:20 Dose: 1 tab Al Hydroxide/Mg Hydroxide (Milk Of Magncheri Liq) 30 ml PO Q12H PRN PRN Reason: Mild Constipation Albuterol (Duoneb Neb (Genet)) 1 ampul NEB BID NEB GENET Aspirin (Ecotrin) 81 mg PO DAILY [facility] Last Admin: 06/02/18 08:24 Dose: 81 mg Atorvastatin Calcium (Lipitor) 80 mg PO HS [facility] Last Admin: 06/01/18 21:20 Dose: 80 mg Benzonatate (Tessalon Perles) 100 mg PO Q8H PRN PRN Reason: COUGH Last Admin: 05/25/18 23:59 Dose: 100 mg Bisacodyl (Dulcolax Supp) 10 mg RECTAL DAILY PRN PRN Reason: SEVERE CONSITIPATION Budesonide/Formoterol Fumarate (Symbicort 160/4.5 Mcg Inh) 2 puff INH BID [facility] Last Admin: 06/02/18 08:29 Dose: 2 puff Bumetanide (Bumex Inj) 2 mg IV.PUSH TID [facility] Last Admin: 06/02/18 17:04 Dose: 2 mg Carvedilol (Coreg) 12.5 mg PO BID [facility] Last Admin: 06/02/18 08:23 Dose: 12.5 mg Clopidogrel Bisulfate (Plavix) 75 mg PO DAILY [facility] Last Admin: 06/02/18 08:24 Dose: 75 mg Dextrose (D50w Vial) 50 ml IV.PUSH UNSCH PRN PRN Reason: PER HYPOGLYCEMIA PROTOCOL Enoxaparin Sodium (Lovenox Inj) 30 mg SQ DAILY [facility] Last Admin: 06/02/18 08:21 Dose: 30 mg Famotidine (Pepcid) 10 mg PO BID [facility] Last Admin: 06/02/18 08:22 Dose: 10 mg Ferrous Sulfate (Ferosul) 325 mg PO DAILY [facility] Last Admin: 06/02/18 08:24 Dose: 325 mg Fluticasone Propionate (Flonase Nasal [place]) 1 spray NASAL BID [facility] Last Admin: 06/02/18 08:24 Dose: 1 spray Gabapentin (Neurontin) 200 mg PO TID [facility] Last Admin: 06/02/18 17:05 Dose: 200 mg Glucagon (Glucagon Inj) 1 mg OTHER PRN PRN PRN Reason: for Hypoglycemia Protocol Albumin Human (Flexbumin 25% Inj) 100 mls @ 60 mls/hr IV.SIG Q12H [facility] Last Infusion: 06/02/18 12:03 Dose: Infused Insulin Aspart (Novolog Insulin Correctional Sugar Inj) 0 unit SQ ACHS [facility]; Protocol Last Admin: 06/02/18 17:06 Dose: 4 unit Insulin Detemir (Levemir Inj) 58 unit SQ BID [facility] Last Admin: 06/02/18 11:34 Dose: 58 unit Lactulose (Lactulose Liq) 30 ml PO DAILY [facility] Last Admin: 06/02/18 08:22 Dose: 30 ml Lisinopril (Prinivil) 2.5 mg PO DAILY [facility] Last Admin: 06/02/18 08:22 Dose: 2.5 mg Metolazone (Zaroxolyn) 2.5 mg PO BID [facility] Last Admin: 06/02/18 08:23 Dose: 2.5 mg Neomycin/Polymyxin/Bacitracin (Neosporin Oint) 1 applicatio TOPICAL BID [facility] Last Admin: 06/02/18 08:24 Dose: 1 applicatio Nystatin (Mycostatin Powder) 1 applicatio TOPICAL QID [facility] Last Admin: 06/02/18 17:06 Dose: Not Given Ondansetron HCl (Zofran Inj) 4 mg IV.PUSH Q6H PRN PRN Reason: NAUSEA OR VOMITING Quetiapine Fumarate (Seroquel) 25 mg PO HS [facility] Senna/Docusate Sodium (Abiola-Colace) 1 tab PO BID [facility] Last Admin: 06/02/18 08:23 Dose: 1 tab Sennosides (Senokot) 17.2 mg PO Q12H PRN PRN Reason: Moderate Constipation Sodium Chloride (Ns Flush) 2 ml IV.FLUSH PRN PRN PRN Reason: FLUSH AFTER USING IV ACCESS Sodium Chloride (Ns Flush) 2 ml IV.FLUSH BID [facility] Last Admin: 06/02/18 08:24 Dose: 2 ml Tamsulosin HCl (Flomax) 0.4 mg PO HS [facility] Last Admin: 06/01/18 21:20 Dose: 0.4 mg Allergies Allergy/AdvReac Type Severity Reaction Status Date / Time No Known Allergies Allergy Verified 03/27/18 10:29 Home Medications Medication Instructions Recorded Confirmed Type hydrocodone-acetaminophen [Pyote] 1 tab PO Q6H 01/15/18 05/22/18 History insulin regular human [Humulin R 1 sliding scale dose SUB-Q UD 01/15/18 History Regular U-100 Insuln] lidocaine [Lidocaine Pain Relief] 1 patch TOPICAL Q8H 01/15/18 05/22/18 History ranitidine HCl [Zantac] 150 mg PO BID 01/15/18 05/22/18 History sitagliptin-metformin [Janumet] 1 tab PO DAILY 01/15/18 05/22/18 History tamsulosin [Flomax] 0.4 mg PO HS 01/15/18 05/22/18 History Physical Exam Vital signs: Vital Signs 06/01/18 19:00 06/01/18 19:25 06/01/18 20:00 Temperature 97.6 F Pulse Rate 75 72 74 Respiratory Rate 16 18 Blood Pressure 119/72 Pulse Oximetry 97 98 97 06/01/18 21:00 06/01/18 22:00 06/01/18 23:00 Temperature Pulse Rate 70 72 72 Respiratory Rate 18 Blood Pressure 129/73 Pulse Oximetry 98 06/02/18 00:00 06/02/18 01:00 06/02/18 02:00 Temperature Pulse Rate 72 75 68 Respiratory Rate Blood Pressure Pulse Oximetry 06/02/18 03:00 06/02/18 04:00 06/02/18 05:00 Temperature 98.3 F Pulse Rate 70 72 68 Respiratory Rate 16 Blood Pressure 139/72 Pulse Oximetry 100 06/02/18 06:00 06/02/18 07:00 06/02/18 08:00 Temperature 97 F L Pulse Rate 66 72 69 Respiratory Rate 20 Blood Pressure 135/71 Pulse Oximetry 96 06/02/18 08:20 06/02/18 09:00 06/02/18 10:00 Temperature Pulse Rate 70 71 Respiratory Rate 19 Blood Pressure Pulse Oximetry 06/02/18 11:00 06/02/18 11:14 06/02/18 12:00 Temperature 97.8 F Pulse Rate 74 74 Respiratory Rate 20 Blood Pressure 141/74 H Pulse Oximetry 96 92 L 06/02/18 12:19 06/02/18 14:00 06/02/18 14:38 Temperature Pulse Rate 74 75 74 Respiratory Rate Blood Pressure Pulse Oximetry 06/02/18 15:14 06/02/18 16:00 06/02/18 16:26 Temperature 97.9 F Pulse Rate 75 75 72 Respiratory Rate 20 16 Blood Pressure 130/65 Pulse Oximetry 99 06/02/18 17:16 Temperature Pulse Rate 83 Respiratory Rate Blood Pressure Pulse Oximetry Intake & Output 06/01/18 06/02/18 06/02/18 18:59 06:59 18:59 Intake Total 820 / 820 280 / 280 760 / 760 Output Total 2500 / 2500 2350 / 2350 2425 / 2425 Balance -1680 / -1680 -2070 / -2070 -1665 / -1665 Weight 100.5 kg Intake: IV 100 / 100 100 / 100 100 / 100 Flexbumin 25% Inj 100 ML @ 60 100 / 100 100 / 100 100 / 100 mls/hr IV.SIG Q12H [facility] Rx#: [id number] Oral 720 / 720 180 / 180 660 / 660 Output: Urine 850 / 850 Urine Amount (Catheter) 2500 / 2500 1500 / 1500 2425 / 2425 Indwelling Urethral Catheter 2500 / 2500 1500 / 1500 2425 / 2425 Other: Date of Last Bowel Movement 05/31/18 06/01/18 05/31/18 Narrative: GENERAL: Patient lying in bed watching TV. NAD, AAOx3 SKIN: Significant dryness and evidence of venous stasis on anterior shins bilaterally. No edema. HEAD: Atraumatic. Normocephalic. CARDIOVASCULAR: Regular rate and rhythm. RESPIRATORY: Occasional wheeze in the bilateral mid lungs, expiratory airflow minimally restricted. No accessory muscle use. Breath sounds equal bilaterally. GASTROINTESTINAL: Abdomen obese. MUSCULOSKELETAL: Extremities without clubbing, cyanosis. Minimal pitting edema improving on anterior shins, dependent edema on posterior thighs. No obvious deformities. NEUROLOGICAL: Awake and alert. No obvious cranial nerve deficits. Patient has asterixis on extension arms bilateral tremulous flapping. He has no other gross neurological deficits. Judgment and recall intact. - Urinary Catheter Management Indwelling Urethral Catheter Cath placed during this visit: yes Reason for continuing: Acute urinary retention Insertion date: 05/22/18 Insertion time: 12:37 Results 06/02/18 05:38 06/02/18 05:38 Cardiac Enzymes 06/01/18 06/02/18 Range/Units 05:52 05:38 AST 77 H 36 (15-37) U/L CBC 06/01/18 06/02/18 Range/Units 05:52 05:38 WBC 7.4 7.2 (4.0-11.0) th/mm3 RBC 2.45 L 2.59 L (4.50-5.90) mil/mm3 Hgb 7.2 L 7.7 L (13.0-17.0) gm/dL Hct 21.6 L 22.8 L (39.0-51.0) % Plt Count 208 216 (150-450) th/mm3 Neut # (Auto) 4.2 4.5 (1.8-7.7) th/mm3 Lymph # (Auto) 1.8 1.6 (1.0-4.8) th/mm3 Allen # (Auto) 1.2 H 0.8 (0.0-0.9) th/mm3 Eos # (Auto) 0.2 0.2 (0.0-0.4) th/mm3 Baso # (Auto) 0.0 0.0 (0.0-0.2) th/mm3 Comprehensive Metabolic Panel 06/01/18 06/02/18 Range/Units 05:52 05:38 Sodium 136 138 (136-145) meq/L Potassium 4.2 4.0 (3.5-5.1) meq/L Chloride 93 L 91 L (98-107) meq/L Carbon Dioxide 36.0 H 40.5 H (21.0-32.0) meq/L BUN 67 H 72 H (7-18) mg/dL Creatinine 2.80 H 2.71 H (0.60-1.30) mg/dL Calcium 8.2 L 8.9 (8.5-10.1) mg/dL AST 77 H 36 (15-37) U/L ALT 70 61 (12-78) U/L Alkaline Phosphatase 303 H 264 H (45-117) U/L Total Protein 6.5 6.9 (6.4-8.2) g/dL Albumin 3.1 L 3.4 (3.4-5.0) g/dL Intake and Output 06/02/18 06/02/18 06/02/18 06:59 14:59 22:59 Intake Total 280 / 280 100 / 100 660 / 660 Output Total 2350 / 2350 2425 / 2425 Balance -2070 / -2070 100 / 100 -1765 / -1765 Intake: IV 100 / 100 100 / 100 Flexbumin 25% Inj 100 ML @ 60 100 / 100 100 / 100 mls/hr IV.SIG Q12H [facility] Rx#: [id number] Oral 180 / 180 660 / 660 Output: Urine 850 / 850 Urine Amount (Catheter) 1500 / 1500 2425 / 2425 Indwelling Urethral Catheter 1500 / 1500 2425 / 2425 Other: Date of Last Bowel Movement 06/01/18 05/31/18 05/31/18 Weight 100.5 kg - Imaging and Cardiology Imaging: Impressions Abdomen Ultrasound 06/01/18 00:00 CONCLUSION: 1. Enlarged echogenic liver consistent with hepatic steatosis versus medical renal disease. 2. Mild gallbladder wall thickening likely due to hypoalbuminemia/chronic liver dysfunction. This limits overall sonographic sensitivity for evaluation of cholecystitis. 3. Trace ascites. 4. Echogenic kidneys consistent with medical renal disease. Assessment and Plan - Assessment (1) Ischemic cardiomyopathy Code(s): I25.5 - Ischemic cardiomyopathy Status: Acute Plan: ef < 20%, on rené/bb;for nuclear viability study today(cr too high for MRI), if some viability would recommend cabg. (2) CHF (congestive heart failure), NYHA class IV Code(s): I50.9 - Heart failure, unspecified Status: Acute Plan: improving on lasix (3) Edema Code(s): R60.9 - Edema, unspecified Status: Acute (4) Cardiorenal syndrome Code(s): I13.10 - Hypertensive heart and chronic kidney disease without heart failure, with stage 1 through stage 4 chronic kidney disease, or unspecified chronic kidney disease Status: Acute Plan: has diuresed some (though still overloaded), though now with worsening cr; will ask for renal assistance. - Plan 1. Ischemic cardiomyopathy Previous EF 20%, new echo read as EF 50%, but visually around 35% 2. Chronic systolic congestive heart failure. Diuresing well Edema improved BNP decreasing Creatinine stable Con't Bumex/Zaroxolyn 3. Severe multivessel coronary disease. Nuclear stress test showing multiple areas of infarction Viability showing some infarct, but anterior and inferior harrison other than apex appear possibly viable Discussed with CT surgery Consideration of SNF to get stronger then for CABG Needs diabetes control 4. Hypertension. 5. Hyperlipidemia (2) CHF (congestive heart failure), NYHA class IV Qualifiers: Congestive heart failure type: combined Congestive heart failure chronicity: acute on chronic Qualified Code(s): I50.43 - Acute on chronic combined systolic (congestive) and diastolic (congestive) heart failure
--- NOTE | 2018-06-02 19:25 | P.PNPL ---
Subjective Interval history: 63 YOWM with CAD,CMP,COPD , restrictive lung disease Breathing better Perfusion scan showes fixed defect and EF 32% Scrotal swelling decreasing Physical Exam Vital signs: Vital Signs 06/01/18 19:25 06/01/18 20:00 06/01/18 21:00 Temperature Pulse Rate 72 74 70 Respiratory Rate 18 Blood Pressure Pulse Oximetry 98 97 06/01/18 22:00 06/01/18 23:00 06/02/18 00:00 Temperature Pulse Rate 72 72 72 Respiratory Rate 18 Blood Pressure 129/73 Pulse Oximetry 98 06/02/18 01:00 06/02/18 02:00 06/02/18 03:00 Temperature 98.3 F Pulse Rate 75 68 70 Respiratory Rate 16 Blood Pressure 139/72 Pulse Oximetry 100 06/02/18 04:00 06/02/18 05:00 06/02/18 06:00 Temperature Pulse Rate 72 68 66 Respiratory Rate Blood Pressure Pulse Oximetry 06/02/18 07:00 06/02/18 08:00 06/02/18 08:20 Temperature 97 F L Pulse Rate 72 69 Respiratory Rate 20 19 Blood Pressure 135/71 Pulse Oximetry 96 06/02/18 09:00 06/02/18 10:00 06/02/18 11:00 Temperature Pulse Rate 70 71 74 Respiratory Rate Blood Pressure Pulse Oximetry 06/02/18 11:14 06/02/18 12:00 06/02/18 12:19 Temperature 97.8 F Pulse Rate 74 74 Respiratory Rate 20 Blood Pressure 141/74 H Pulse Oximetry 96 92 L 06/02/18 14:00 06/02/18 14:38 06/02/18 15:14 Temperature Pulse Rate 75 74 75 Respiratory Rate 20 Blood Pressure Pulse Oximetry 06/02/18 16:00 06/02/18 16:26 06/02/18 17:16 Temperature 97.9 F Pulse Rate 75 72 83 Respiratory Rate 16 Blood Pressure 130/65 Pulse Oximetry 99 Intake & Output 06/02/18 06/02/18 06/03/18 06:59 18:59 06:59 Intake Total 280 / 280 760 / 760 Output Total 2350 / 2350 2425 / 2425 Balance -2070 / -207 -1665 / -1665 Weight 100.5 kg Intake: IV 100 / 100 100 / 100 Flexbumin 25% Inj 100 ML @ 60 100 / 100 100 / 100 mls/hr IV.SIG Q12H [place] Rx#: [id number] Oral 180 / 180 660 / 660 Output: Urine 850 / 850 Urine Amount (Catheter) 1500 / 1500 2425 / 2425 Indwelling Urethral Catheter 1500 / 1500 2425 / 2425 Other: Date of Last Bowel Movement 06/01/18 05/31/18 GENERAL: Elderly WM, NAD SKIN: Warm and dry. HEAD: Normocephalic. EYES: No scleral icterus. No injection or drainage. NECK: Supple, trachea midline. No JVD or lymphadenopathy. CARDIOVASCULAR: Regular rate and rhythm without murmurs, gallops, or rubs. RESPIRATORY: Breath sounds equal bilaterally. No accessory muscle use. GASTROINTESTINAL: Abdomen soft, non-tender, nondistended. MUSCULOSKELETAL: No cyanosis, or edema. BACK: Nontender without obvious deformity. No CVA tenderness. - Urinary Catheter Management Indwelling Urethral Catheter Cath placed during this visit: yes Reason for continuing: Acute urinary retention Insertion date: 05/22/18 Insertion time: 12:37 Assessment and Plan - Plan IMPRESSION: 1. Severe pulmonary disease. He has obstructive lung disease as well as restrictive lung disease. His FEV1 is 0.81. 2. Severe cardiomyopathy with an ejection fraction of 32%. 3. Multivessel coronary artery disease. 4. Diabetes mellitus. 5. Neuropathy. 6. Obesity. 7. Renal insufficiency. PLAN: Supplement 02 Aerosol nebs Diurease Bumex Monitor Renal functions Symbicort 2 puffs bid Plavix 75 mg daily Flonase NS Stable from Pulm standpoint
[2018-06-02] MEDS: QUEtiapine 25 MG Tablet PO SCH (21:11)
[2018-06-03] MEDS: Dextrose 50% in Water 50 ML Vial IV.PUSH PRN ×2 (03:11→08:30)
[2018-06-03 07:02] LABS: Baso # (Auto) 0.1 th/mm3 (0.0-0.2); Baso % (Auto) 0.8 % (0.0-2.0); Eos # (Auto) 0.3 th/mm3 (0.0-0.4); Eos % (Auto) 3.7 % (0.0-4.0); Hematocrit 23.8 % (39.0-51.0); Hemoglobin 8.1 gm/dL (13.0-17.0); Lymph # (Auto) 1.6 th/mm3 (1.0-4.8); Lymph % (Auto) 24.2 % (9.0-44.0); Mean Corpuscular HGB Conc 33.9 % (32.0-36.0); Mean Corpuscular Hemoglobin 29.5 pg (27.0-34.0); Mean Platelet Volume 7.9 fL (7.0-11.0); Mono # (Auto) 0.9 th/mm3 (0.0-0.9); Mono % (Auto) 13.1 % (0.0-8.0); Neut % (Auto) 58.2 % (16.0-70.0); Platelet Count 234 th/mm3 (150-450); Red Blood Count 2.74 mil/mm3 (4.50-5.90); Red Cell Distribution Width 15.5 % (11.6-17.2); White Blood Count 6.8 th/mm3 (4.0-11.0)
[2018-06-03 07:31] LABS: Alanine Aminotransferase 43 U/L (12-78); Albumin 3.6 g/dL (3.4-5.0); Anion Gap 6 meq/L (5-15); Aspartate Aminotransferase 17 U/L (15-37); Blood Urea Nitrogen 67 mg/dL (7-18); Calcium 9.2 mg/dL (8.5-10.1); Carbon Dioxide 43.4 meq/L (21.0-32.0); Chloride 91 meq/L (98-107); Glomerular Filtration Rate 28 mL/min (>89); Glucose,Random 52 mg/dL (74-106); Magnesium 2.6 mg/dL (1.5-2.5); Phosphorus 4.3 mg/dL (2.5-4.9); Potassium 3.5 meq/L (3.5-5.1); Sodium 140 meq/L (136-145)
[2018-06-03 07:33] LABS: Alkaline Phosphatase 234 U/L (45-117)
--- NOTE | 2018-06-03 08:55 | P.PNFP ---
Subjective Interval history: Patient seen at bedside this morning. Patient had no acute events overnight. Patient reports feeling terrible. He reports that although he is breathing well and not experiencing pain he is very disappointed in the care that he is received so far stating that there is not enough compassion and that he is thinking about going to the newspaper. He does however report sleeping better last night. He also reports being very thirsty as he is on fluid restriction and disappointed that he cannot get ice chips or more water as he is "dying of thirst". Due to his thirst he reported refusing his breathing treatments. The plan for diuresis as well as management of his current medical issues was discussed. He reported understanding had no further questions. <Joshua Shah - 06/03/18 09:04> Results - Labs Result diagrams: 06/03/18 06:50 06/03/18 06:50 <Jose Monroe - 06/03/18 11:26> Abnormal lab results 06/02/18 06/02/18 06/02/18 Range/Units 11:30 16:14 20:53 RBC (4.50-5.90) mil/mm3 Hgb (13.0-17.0) gm/dL Hct (39.0-51.0) % Henry % (Auto) (0.0-8.0) % Chloride (98-107) meq/L Carbon Dioxide (21.0-32.0) meq/L BUN (7-18) mg/dL Creatinine (0.60-1.30) mg/dL Estimated GFR (>89) mL/min POC Glucose 124 H 210 H 238 H (68-110) mg/dl Random Glucose (74-106) mg/dL Magnesium (1.5-2.5) mg/dL Alkaline Phosphatase (45-117) U/L 06/03/18 06/03/18 06/03/18 Range/Units 03:07 03:08 03:31 RBC (4.50-5.90) mil/mm3 Hgb (13.0-17.0) gm/dL Hct (39.0-51.0) % Henry % (Auto) (0.0-8.0) % Chloride (98-107) meq/L Carbon Dioxide (21.0-32.0) meq/L BUN (7-18) mg/dL Creatinine (0.60-1.30) mg/dL Estimated GFR (>89) mL/min POC Glucose 57 L 57 L 160 H (68-110) mg/dl Random Glucose (74-106) mg/dL Magnesium (1.5-2.5) mg/dL Alkaline Phosphatase (45-117) U/L 06/03/18 06/03/18 06/03/18 Range/Units 06:50 06:50 07:45 RBC 2.74 L (4.50-5.90) mil/mm3 Hgb 8.1 L (13.0-17.0) gm/dL Hct 23.8 L (39.0-51.0) % Henry % (Auto) 13.1 H (0.0-8.0) % Chloride 91 L (98-107) meq/L Carbon Dioxide 43.4 H (21.0-32.0) meq/L BUN 67 H (7-18) mg/dL Creatinine 2.39 H (0.60-1.30) mg/dL Estimated GFR 28 L (>89) mL/min POC Glucose 66 L (68-110) mg/dl Random Glucose 52 L (74-106) mg/dL Magnesium 2.6 H (1.5-2.5) mg/dL Alkaline Phosphatase 234 H (45-117) U/L 06/03/18 06/03/18 Range/Units 08:02 08:15 RBC (4.50-5.90) mil/mm3 Hgb (13.0-17.0) gm/dL Hct (39.0-51.0) % Henry % (Auto) (0.0-8.0) % Chloride (98-107) meq/L Carbon Dioxide (21.0-32.0) meq/L BUN (7-18) mg/dL Creatinine (0.60-1.30) mg/dL Estimated GFR (>89) mL/min POC Glucose 66 L 51 L (68-110) mg/dl Random Glucose (74-106) mg/dL Magnesium (1.5-2.5) mg/dL Alkaline Phosphatase (45-117) U/L Short CBC 06/03/18 Range/Units 06:50 WBC 6.8 (4.0-11.0) th/mm3 Hgb 8.1 L (13.0-17.0) gm/dL Hct 23.8 L (39.0-51.0) % Plt Count 234 (150-450) th/mm3 BMP 06/03/18 06:50 Sodium 140 Potassium 3.5 Chloride 91 L Carbon Dioxide 43.4 H BUN 67 H Creatinine 2.39 H Calcium 9.2 Liver Function 06/03/18 Range/Units 06:50 Total Bilirubin 0.5 (0.2-1.0) mg/dL AST 17 (15-37) U/L ALT 43 (12-78) U/L Alkaline Phosphatase 234 H (45-117) U/L Albumin 3.6 (3.4-5.0) g/dL <Jose Monroe - 06/03/18 11:26> Abnormal lab results 06/02/18 06/02/18 06/02/18 Range/Units 11:30 16:14 20:53 RBC (4.50-5.90) mil/mm3 Hgb (13.0-17.0) gm/dL Hct (39.0-51.0) % Henry % (Auto) (0.0-8.0) % Chloride (98-107) meq/L Carbon Dioxide (21.0-32.0) meq/L BUN (7-18) mg/dL Creatinine (0.60-1.30) mg/dL Estimated GFR (>89) mL/min POC Glucose 124 H 210 H 238 H (68-110) mg/dl Random Glucose (74-106) mg/dL Magnesium (1.5-2.5) mg/dL Alkaline Phosphatase (45-117) U/L 06/03/18 06/03/18 06/03/18 Range/Units 03:07 03:08 03:31 RBC (4.50-5.90) mil/mm3 Hgb (13.0-17.0) gm/dL Hct (39.0-51.0) % Henry % (Auto) (0.0-8.0) % Chloride (98-107) meq/L Carbon Dioxide (21.0-32.0) meq/L BUN (7-18) mg/dL Creatinine (0.60-1.30) mg/dL Estimated GFR (>89) mL/min POC Glucose 57 L 57 L 160 H (68-110) mg/dl Random Glucose (74-106) mg/dL Magnesium (1.5-2.5) mg/dL Alkaline Phosphatase (45-117) U/L 06/03/18 06/03/18 06/03/18 Range/Units 06:50 06:50 07:45 RBC 2.74 L (4.50-5.90) mil/mm3 Hgb 8.1 L (13.0-17.0) gm/dL Hct 23.8 L (39.0-51.0) % Henry % (Auto) 13.1 H (0.0-8.0) % Chloride 91 L (98-107) meq/L Carbon Dioxide 43.4 H (21.0-32.0) meq/L BUN 67 H (7-18) mg/dL Creatinine 2.39 H (0.60-1.30) mg/dL Estimated GFR 28 L (>89) mL/min POC Glucose 66 L (68-110) mg/dl Random Glucose 52 L (74-106) mg/dL Magnesium 2.6 H (1.5-2.5) mg/dL Alkaline Phosphatase 234 H (45-117) U/L 06/03/18 06/03/18 Range/Units 08:02 08:15 RBC (4.50-5.90) mil/mm3 Hgb (13.0-17.0) gm/dL Hct (39.0-51.0) % Henry % (Auto) (0.0-8.0) % Chloride (98-107) meq/L Carbon Dioxide (21.0-32.0) meq/L BUN (7-18) mg/dL Creatinine (0.60-1.30) mg/dL Estimated GFR (>89) mL/min POC Glucose 66 L 51 L (68-110) mg/dl Random Glucose (74-106) mg/dL Magnesium (1.5-2.5) mg/dL Alkaline Phosphatase (45-117) U/L Short CBC 06/03/18 Range/Units 06:50 WBC 6.8 (4.0-11.0) th/mm3 Hgb 8.1 L (13.0-17.0) gm/dL Hct 23.8 L (39.0-51.0) % Plt Count 234 (150-450) th/mm3 BMP 06/03/18 06:50 Sodium 140 Potassium 3.5 Chloride 91 L Carbon Dioxide 43.4 H BUN 67 H Creatinine 2.39 H Calcium 9.2 Liver Function 06/03/18 Range/Units 06:50 Total Bilirubin 0.5 (0.2-1.0) mg/dL AST 17 (15-37) U/L ALT 43 (12-78) U/L Alkaline Phosphatase 234 H (45-117) U/L Albumin 3.6 (3.4-5.0) g/dL <Joshua Shah O - 06/03/18 08:55> Physical Exam Vital signs: Vital Signs 06/02/18 12:00 06/02/18 12:19 06/02/18 14:00 Temperature 97.8 F Pulse Rate 74 74 75 Respiratory Rate 20 Blood Pressure 141/74 H Pulse Oximetry 92 L 06/02/18 14:38 06/02/18 15:14 06/02/18 16:00 Temperature 97.9 F Pulse Rate 74 75 75 Respiratory Rate 20 16 Blood Pressure 130/65 Pulse Oximetry 99 06/02/18 16:26 06/02/18 17:16 06/02/18 19:00 Temperature Pulse Rate 72 83 74 Respiratory Rate Blood Pressure Pulse Oximetry 06/02/18 20:00 06/02/18 21:00 06/02/18 21:03 Temperature 99.4 F Pulse Rate 76 80 76 Respiratory Rate 18 20 Blood Pressure 149/86 H Pulse Oximetry 96 97 06/02/18 22:00 06/03/18 00:00 06/03/18 03:55 Temperature 97.8 F Pulse Rate 74 73 70 Respiratory Rate 18 Blood Pressure 106/66 Pulse Oximetry 98 06/03/18 04:00 06/03/18 08:00 Temperature 97.7 F 97.8 F Pulse Rate 70 71 Respiratory Rate 18 15 Blood Pressure 118/57 L 134/67 Pulse Oximetry 99 99 Intake & Output 06/02/18 06/03/18 06/03/18 18:59 06:59 18:59 Intake Total 760 / 760 580 / 580 Output Total 2425 / 2425 2250 / 2250 Balance -1665 / -1665 -1670 / -1670 Weight 99.4 kg Intake: IV 100 / 100 100 / 100 Flexbumin 25% Inj 100 ML @ 60 100 / 100 100 / 100 mls/hr IV.SIG Q12H [facility] Rx#: [id number] Oral 660 / 660 480 / 480 Output: Urine 1550 / 1550 Urine Amount (Catheter) 2425 / 2425 700 / 700 Indwelling Urethral Catheter 2425 / 2425 700 / 700 Other: Date of Last Bowel Movement 05/31/18 05/31/18 05/31/18 # Bowel Movements 0 Weight On Admission 99.1 kg <Jose Monroe - 06/03/18 11:26> Vital Signs 06/02/18 09:00 06/02/18 10:00 06/02/18 11:00 Temperature Pulse Rate 70 71 74 Respiratory Rate Blood Pressure Pulse Oximetry 06/02/18 11:14 06/02/18 12:00 06/02/18 12:19 Temperature 97.8 F Pulse Rate 74 74 Respiratory Rate 20 Blood Pressure 141/74 H Pulse Oximetry 96 92 L 06/02/18 14:00 06/02/18 14:38 06/02/18 15:14 Temperature Pulse Rate 75 74 75 Respiratory Rate 20 Blood Pressure Pulse Oximetry 06/02/18 16:00 06/02/18 16:26 06/02/18 17:16 Temperature 97.9 F Pulse Rate 75 72 83 Respiratory Rate 16 Blood Pressure 130/65 Pulse Oximetry 99 06/02/18 19:00 06/02/18 20:00 06/02/18 21:00 Temperature 99.4 F Pulse Rate 74 76 80 Respiratory Rate 18 Blood Pressure 149/86 H Pulse Oximetry 96 06/02/18 21:03 06/02/18 22:00 06/03/18 00:00 Temperature 97.8 F Pulse Rate 76 74 73 Respiratory Rate 20 18 Blood Pressure 106/66 Pulse Oximetry 97 98 06/03/18 03:55 06/03/18 04:00 Temperature 97.7 F Pulse Rate 70 70 Respiratory Rate 18 Blood Pressure 118/57 L Pulse Oximetry 99 Intake & Output 06/02/18 06/03/18 06/03/18 18:59 06:59 18:59 Intake Total 760 / 760 580 / 580 Output Total 2425 / 2425 2250 / 2250 Balance -1665 / -1665 -1670 / -1670 Weight 99.4 kg Intake: IV 100 / 100 100 / 100 Flexbumin 25% Inj 100 ML @ 60 100 / 100 100 / 100 mls/hr IV.SIG Q12H [facility] Rx#: [id number] Oral 660 / 660 480 / 480 Output: Urine 1550 / 1550 Urine Amount (Catheter) 2425 / 2425 700 / 700 Indwelling Urethral Catheter 2425 / 2425 700 / 700 Other: Date of Last Bowel Movement 05/31/18 05/31/18 # Bowel Movements 0 Weight On Admission 99.1 kg <Joshua Shah - 06/03/18 08:55> Narrative: GENERAL: Patient lying in bed watching TV. NAD, AAOx3 SKIN: Significant dryness and evidence of venous stasis on anterior shins bilaterally. No edema. HEAD: Atraumatic. Normocephalic. CARDIOVASCULAR: Regular rate and rhythm. RESPIRATORY: Occasional wheeze in the bilateral mid lungs, expiratory airflow minimally restricted. No accessory muscle use. Breath sounds equal bilaterally. GASTROINTESTINAL: Abdomen obese. Nontender, normal bowel sounds appreciated. MUSCULOSKELETAL: Extremities without clubbing, cyanosis. Minimal pitting edema improving on anterior shins, dependent edema on posterior thighs. No obvious deformities. GENITOURINARY: Scrotal edema still impressive but improving daily. Patient still has Chung catheter in place that was placed on 05/22 with minimal penile discharge. No erythema of the urethral meatus. NEUROLOGICAL: Awake and alert. No obvious cranial nerve deficits. Patient has asterixis on extension arms bilateral tremulous flapping that is better than yesterday but still present. He has no other gross neurological deficits. Judgment and recall intact. <Joshua Shah - 06/03/18 09:04> - Urinary Catheter Management Indwelling Urethral Catheter Cath placed during this visit: no <Jose Monroe - 06/03/18 11:26> yes <Joshua Shah - 06/03/18 10:38> Reason for continuing: Acute urinary retention <Joshua Shah 06/03/18 08 :55> Insertion date: 05/22/18 <Joshua Shah 06/03/18 08:55> Insertion time: 12:37 <Joshua Shah 06/03/18 08:55> Assessment and Plan - Assessment (1) Hallucinations, visual Code(s): R44.1 - Visual hallucinations Status: Acute (2) Asterixis Code(s): R27.8 - Other lack of coordination Status: Acute (3) Chronic kidney disease Code(s): N18.9 - Chronic kidney disease, unspecified Status: Acute (4) CHF (congestive heart failure), NYHA class IV Code(s): I50.9 - Heart failure, unspecified Status: Acute (5) COPD (chronic obstructive pulmonary disease) Code(s): J44.9 - Chronic obstructive pulmonary disease, unspecified Status: Acute (6) Ischemic cardiomyopathy Code(s): I25.5 - Ischemic cardiomyopathy Status: Acute (7) CAD (coronary artery disease) Code(s): I25.10 - Atherosclerotic heart disease of [place] coronary artery without angina pectoris Status: Acute (8) Balanitis Code(s): N48.1 - Balanitis Status: Acute (9) DM2 (diabetes mellitus, type 2) Code(s): E11.9 - Type 2 diabetes mellitus without complications Status: Acute (10) Anemia Code(s): D64.9 - Anemia, unspecified Status: Acute (11) HTN (hypertension) Code(s): I10 - Essential (primary) hypertension Status: Acute (12) Diabetic neuropathy Code(s): E11.40 - Type 2 diabetes mellitus with diabetic neuropathy, unspecified Status: Acute (13) Nutrition, metabolism, and development symptoms Code(s): R63.8 - Other symptoms and signs concerning food and fluid intake Status: Acute <Jose Monroe - 06/03/18 11:26> (1) Hallucinations, visual Code(s): R44.1 - Visual hallucinations Status: Acute Plan: Differential: Uremic encephalopathy versus hepatic encephalopathy versus infection versus delirium. Likely delirium due to patients long hospital stay as well as intact cognition and inconsistent symptoms. Importance of sleep and opening curtains during the day discussed. - Electrolytes within normal limits - VBG shows respiratory acidosis with compensatory metabolic alkalosis Plan: -Lactulose 3 times daily -Nephrology following, appreciate recs, BUN continuing to rise as a result of significant diuresis but creatinine stable. Con't to monitor -Reorient frequently as needed, turn off lights at night and minimize disturbance to prevent delirium -Seroquel 25 mg HS for sleep and to address possible acute delirium (2) Asterixis Code(s): R27.8 - Other lack of coordination Status: Acute Plan: Patient reports a 6-day history of shakiness and tremulousness with asterixis on exam this morning. Patient also having visual hallucinations without auditory stimulus. Abdominal ultrasound shows evidence of chronic liver dysfunction which may be secondary to hepatic steatosis AST ALT within normal limits Ammonia level on 06/01 slightly elevated above normal Start lactulose 3 times daily (3) Chronic kidney disease Code(s): N18.9 - Chronic kidney disease, unspecified Status: Acute Plan: Continue with nephrology recommendations BUN and Cr stable Con't to monitor BMP and diurese due to significant residual edema Will require outpatient monitoring (4) CHF (congestive heart failure), NYHA class IV Code(s): I50.9 - Heart failure, unspecified Status: Acute Plan: Patient continues to improve and diurese. Daily weights have been decreasing since admission -Con't to monitor I's and O's strictly with daily weights * Patient has an indwelling ureteral catheter 05/22 due to scrotal edema -Fluid restriction 1.5 L -Salt restriction 2 g -Stop Bumex and Metalozone -Begin po Lasix 40mg BID Patient to be evaluated next week for possible CABG. Patient has improved but still significant scrotal edema, continue to diurese. Related consults: cardiology nephrology CV surgery (5) COPD (chronic obstructive pulmonary disease) Code(s): J44.9 - Chronic obstructive pulmonary disease, unspecified Status: Acute Plan: Patients personal sales operations specialist Dr. Carlson on board. Occasional wheezing and slightly was instructed airflow on exam today Continue Symbicort Add duo nebs 3 times daily Albuterol PRN O2 as needed Incentive spirometry (6) Ischemic cardiomyopathy Code(s): I25.5 - Ischemic cardiomyopathy Status: Acute Plan: -EF 35%, FEV1 0.8. Poor surgical candidate. Will be evaluated possibly next or Thursday for surgical intervention-CABG. -Continue carvedilol and JEREMY inhibitor (7) CAD (coronary artery disease) Code(s): I25.10 - Atherosclerotic heart disease of [place]da coronary artery without angina pectoris Status: Acute Plan: -Patient with history of previous UT -Continue aspirin and Plavix -Continue atorvastatin 80 mg p.o. HS (8) Balanitis Code(s): N48.1 - Balanitis Status: Acute Plan: Improving. Patient currently has Chung catheter in place since 05/26. Scrotal edema improved. -Continue Neosporin treatment -Voiding trial this PM -Possible discharge pending voiding trial (9) DM2 (diabetes mellitus, type 2) Code(s): E11.9 - Type 2 diabetes mellitus without complications Status: Acute Plan: Improved control, with dip into blood sugar 57 overnight. Patient reports eating crackers at bedside that may be skewing his blood sugar levels. Plan: - Drop Levemir dose to 38 units BID. Hold if blood glucose low - Med dose SSI Con't to adjust based on requirements over the course of the day (10) Anemia Code(s): D64.9 - Anemia, unspecified Status: Acute Plan: Stable Normocytic Hemoglobin today 8.1, 10.5 on admission Reticulocyte count elevated at 3.3 Haptoglobin elevated Iron studies show iron deficiency anemia Likely mixed picture with anemia of chronic disease, iron deficiency anemia, and possible hemolysis -Continue to trend CBC/H&H -Continue iron supplementation -Order blood smear -Hemoccult pending (11) HTN (hypertension) Code(s): I10 - Essential (primary) hypertension Status: Acute Plan: Normotensive -Continue with carvedilol 12.5 mg twice daily -Continue Lisinopril 2.5 mg daily (12) Diabetic neuropathy Code(s): E11.40 - Type 2 diabetes mellitus with diabetic neuropathy, unspecified Status: Acute Plan: Improved. - Continue gabapentin 200 mg 3 times daily while inpatient (13) Nutrition, metabolism, and development symptoms Code(s): R63.8 - Other symptoms and signs concerning food and fluid intake Status: Acute Plan: Fluids: Oral fluids only, restrict to 1.5 L due to CHF Electrolytes: Monitor and replete as needed Nutrition: Cardiac and diabetic diet. Salt restricted 2g daily. <Joshua Shah O - 06/03/18 10:29> - Assessment and Plan 63-year-old male presented with acute on chronic CHF exacerbation. Elevated BNP with bilateral 2+ pitting edema, distended abdomen, crackles bilaterally throughout all lung watkins. Patient was started on 40 IV Lasix twice daily and improved. Cardiology consulted due to ejection fraction of less than 20% and plan to perform nuclear viability study to determine if he needs a CABG. Patient also has diabetes, on Levemir 20 units twice daily, high dose sliding scale. ACS rule out was negative. Patient is continued to be diuresed, followed by nephrology, and insulin regimen adjusted to better control blood sugars. Developed balanitis and urethritis, was placed on nystatin and neomycin ointment to control symptoms. Urinalysis suggestive of infection. Urine culture ordered <Joshua Shah - 06/03/18 08:55> - Attending Attestation Patient case discussed with resident physicians I have independently examined the patient I have read the above note and agree with the assessment and plan as discussed with me I was involved in all medical decision making for this patient Heart failure: Continue with diuresis, switch to oral Lasix 40 mg p.o. twice daily Continue to monitor strict I's and O's Chung to be removed today with voiding trial Continue fluid restriction and salt restriction Hallucinations: Likely due to delirium Continue Seroquel 25 mg nightly to help with sleep as patient has not been sleeping well Jose Monroe MD <Jose Monroe - 06/03/18 11:26> <Joshua Shah - Last Filed: 06/03/18 10:29> (3) Chronic kidney disease Qualifiers: Chronic kidney disease stage: unspecified stage Qualified Code(s): N18.9 - Chronic kidney disease, unspecified (4) CHF (congestive heart failure), NYHA class IV Qualifiers: Congestive heart failure type: combined Congestive heart failure chronicity: acute on chronic Qualified Code(s): I50.43 - Acute on chronic combined systolic (congestive) and diastolic (congestive) heart failure (9) DM2 (diabetes mellitus, type 2) Qualifiers: Diabetes mellitus senior care insulin use: with terminal operations manager use Diabetes mellitus complication status: with circulatory complication Diabetes mellitus complication detail: with other circulatory complications Qualified Code(s): E11.59 - Type 2 diabetes mellitus with other circulatory complications; Z79.4 - MCC (current) use of insulin (10) Anemia Qualifiers: Anemia type: unspecified type Qualified Code(s): D64.9 - Anemia, unspecified (11) HTN (hypertension) Qualifiers: Hypertension type: essential hypertension Qualified Code(s): I10 - Essential (primary) hypertension <Jose Monroe - Last Filed: 06/03/18 11:26> (3) Chronic kidney disease Qualifiers: Chronic kidney disease stage: unspecified stage Qualified Code(s): N18.9 - Chronic kidney disease, unspecified (4) CHF (congestive heart failure), NYHA class IV Qualifiers: Congestive heart failure type: combined Congestive heart failure chronicity: acute on chronic Qualified Code(s): I50.43 - Acute on chronic combined systolic (congestive) and diastolic (congestive) heart failure (9) DM2 (diabetes mellitus, type 2) Qualifiers: Diabetes mellitus senior care insulin use: with senior care use Diabetes mellitus complication status: with circulatory complication Diabetes mellitus complication detail: with other circulatory complications Qualified Code(s): E11.59 - Type 2 diabetes mellitus with other circulatory complications; Z79.4 - MCC (current) use of insulin (10) Anemia Qualifiers: Anemia type: unspecified type Qualified Code(s): D64.9 - Anemia, unspecified (11) HTN (hypertension) Qualifiers: Hypertension type: essential hypertension Qualified Code(s): I10 - Essential (primary) hypertension <Joshua Shah - Last Filed: 06/03/18 10:29> (3) Chronic kidney disease Qualifiers: Chronic kidney disease stage: unspecified stage Qualified Code(s): N18.9 - Chronic kidney disease, unspecified (4) CHF (congestive heart failure), NYHA class IV Qualifiers: Congestive heart failure type: combined Congestive heart failure chronicity: acute on chronic Qualified Code(s): I50.43 - Acute on chronic combined systolic (congestive) and diastolic (congestive) heart failure (9) DM2 (diabetes mellitus, type 2) Qualifiers: Diabetes mellitus senior care insulin use: with senior care use Diabetes mellitus complication status: with circulatory complication Diabetes mellitus complication detail: with other circulatory complications Qualified Code(s): E11.59 - Type 2 diabetes mellitus with other circulatory complications; Z79.4 - MCC (current) use of insulin (10) Anemia Qualifiers: Anemia type: unspecified type Qualified Code(s): D64.9 - Anemia, unspecified (11) HTN (hypertension) Qualifiers: Hypertension type: essential hypertension Qualified Code(s): I10 - Essential (primary) hypertension <Jose Monroe - Last Filed: 06/03/18 11:26> (3) Chronic kidney disease Qualifiers: Chronic kidney disease stage: unspecified stage Qualified Code(s): N18.9 - Chronic kidney disease, unspecified (4) CHF (congestive heart failure), NYHA class IV Qualifiers: Congestive heart failure type: combined Congestive heart failure chronicity: acute on chronic Qualified Code(s): I50.43 - Acute on chronic combined systolic (congestive) and diastolic (congestive) heart failure (9) DM2 (diabetes mellitus, type 2) Qualifiers: Diabetes mellitus senior care insulin use: with senior care use Diabetes mellitus complication status: with circulatory complication Diabetes mellitus complication detail: with other circulatory complications Qualified Code(s): E11.59 - Type 2 diabetes mellitus with other circulatory complications; Z79.4 - MCC (current) use of insulin (10) Anemia Qualifiers: Anemia type: unspecified type Qualified Code(s): D64.9 - Anemia, unspecified (11) HTN (hypertension) Qualifiers: Hypertension type: essential hypertension Qualified Code(s): I10 - Essential (primary) hypertension
[2018-06-03] MEDS: Gabapentin 100 MG Capsule PO SCH ×3 (09:36→18:08)
[2018-06-03] MEDS: Ferrous Sulfate 325 MG Tablet PO SCH (09:36)
[2018-06-03] MEDS: Famotidine 20 MG Tablet PO SCH ×2 (09:37→21:07)
[2018-06-03] MEDS: Furosemide 40 MG Tablet PO SCH ×2 (09:37→18:08)
[2018-06-03] MEDS: Lisinopril 5 MG Tablet PO SCH (09:38)
[2018-06-03] MEDS: Carvedilol 12.5 MG Tablet PO SCH ×2 (09:38→21:07)
[2018-06-03] MEDS: Enoxaparin Inj 30 MG/0.3 ML Syringe SQ SCH (09:38)
[2018-06-03] MEDS: Polyethylene Glycol 3350 17 GM Packet PO SCH (09:39)
[2018-06-03] MEDS: Nystatin 100,000 UNITS/GM Powder 15 GM Bottle TOPICAL SCH ×4 (09:39→21:11)
[2018-06-03] MEDS: Budesonide-Formoterol 160/4.5 MCG 6 GM Inhaler INH SCH ×2 (09:40→21:14)
[2018-06-03] MEDS: Insulin NovoLOG Aspart Correctional Sugar Inj SQ SCH ×4 (09:58→21:13)
[2018-06-03] MEDS: Senna/Docusate Sodium 8.6/50 MG Tablet PO SCH ×2 (10:09→21:07)
--- NOTE | 2018-06-03 10:56 | P.PNADD ---
Addendum to Inpatient Note Reason for Addendum: Additional Documentation Additional information: Will try to dc patient today. Currently working w/CM, may require home w/home health PT, wheeled walker. Will assess for O2 needs.
[2018-06-03] MEDS: Albumin Human 25% Inj 100 ML IV.SIG SCH ×2 (11:36→23:00)
--- NOTE | 2018-06-03 11:45 | P.DCO ---
- Physical Therapy Order: Evaluate and treat, Improve ambulation, Strength and gait training - Home Health Nursing Order: Medical education - Case Management Consult Case Management Consult-Home Health: Yes - Certification I have seen patient Jean Carlos Goodman on 06/03/18. My clinical findings support the need for the requested home health care services because: Patient has SOB, Deconditioned with increased weakness, Medication compliance is questionable I certify that my clinical findings support that this patient is homebound because: Hx COPD - exertion dyspnea/weakness
--- NOTE | 2018-06-03 20:21 | P.PNPL ---
Subjective Interval history: 63 YOWM with CAD,CMP,COPD , restrictive lung disease Breathing better Perfusion scan showes fixed defect and EF 32% Scrotal swelling decreasing C/o dry mouth, wants more fluid Physical Exam Vital signs: Vital Signs 06/02/18 21:00 06/02/18 21:03 06/02/18 22:00 Temperature Pulse Rate 80 76 74 Respiratory Rate 20 Blood Pressure Pulse Oximetry 97 06/03/18 00:00 06/03/18 03:55 06/03/18 04:00 Temperature 97.8 F 97.7 F Pulse Rate 73 70 70 Respiratory Rate 18 18 Blood Pressure 106/66 118/57 L Pulse Oximetry 98 99 06/03/18 08:00 06/03/18 12:00 06/03/18 16:00 Temperature 97.8 F 98.0 F 98.3 F Pulse Rate 71 76 72 Respiratory Rate 15 14 16 Blood Pressure 134/67 121/60 136/62 Pulse Oximetry 97 99 98 06/03/18 18:47 06/03/18 19:24 Temperature Pulse Rate 77 Respiratory Rate 20 21 Blood Pressure Pulse Oximetry 97 Intake & Output 06/03/18 06/03/18 06/04/18 06:59 18:59 06:59 Intake Total 580 / 580 100 / 100 Output Total 2250 / 2250 Balance -1670 / -1670 100 / 100 Weight 99.4 kg Intake: IV 100 / 100 100 / 100 Flexbumin 25% Inj 100 ML @ 60 100 / 100 100 / 100 mls/hr IV.SIG Q12H [facility] Rx#: [id number] Oral 480 / 480 Output: Urine 1550 / 1550 Urine Amount (Catheter) 700 / 700 Indwelling Urethral Catheter 700 / 700 Other: Date of Last Bowel Movement 05/31/18 05/31/18 # Bowel Movements 0 Weight On Admission 99.1 kg GENERAL: Obese WM, NAD SKIN: Warm and dry. HEAD: Normocephalic. EYES: No scleral icterus. No injection or drainage. NECK: Supple, trachea midline. No JVD or lymphadenopathy. CARDIOVASCULAR: Regular rate and rhythm without murmurs, gallops, or rubs. RESPIRATORY: Breath sounds equal bilaterally. No accessory muscle use. GASTROINTESTINAL: Abdomen soft, non-tender, nondistended. MUSCULOSKELETAL: No cyanosis, + edema. , scrotal swelling BACK: Nontender without obvious deformity. No CVA tenderness. - Urinary Catheter Management Indwelling Urethral Catheter Cath placed during this visit: yes, but has since been removed by the nurse Reason for continuing: Not indwelling catheter Insertion date: 05/22/18 Insertion time: 12:37 Removal date: 06/03/18 Removal time: 13:30 Assessment and Plan - Plan IMPRESSION: 1. Severe pulmonary disease. He has obstructive lung disease as well as restrictive lung disease. His FEV1 is 0.81. 2. Severe cardiomyopathy with an ejection fraction of 32%. 3. Multivessel coronary artery disease. 4. Diabetes mellitus. 5. Neuropathy. 6. Obesity. 7. Renal insufficiency. PLAN: Supplement 02 Aerosol nebs Diurease Bumex Monitor Renal functions Symbicort 2 puffs bid Plavix 75 mg daily Flonase NS DC plans underway.
[2018-06-03] MEDS ORDERED: Insulin Detemir Inj 1,000 UNIT/10 ML Vial SQ SCH (21:00)
[2018-06-03] MEDS: QUEtiapine 25 MG Tablet PO SCH (21:07)
[2018-06-03] MEDS: Insulin Detemir Inj 1,000 UNIT/10 ML Vial SQ SCH (21:12)
--- NOTE | 2018-06-03 21:58 | P.PNNP ---
Subjective Interval history: Patient seen in the late afternoon, mild SOB, not in distress. Physical Exam Vital signs: Vital Signs 06/02/18 22:00 06/03/18 00:00 06/03/18 03:55 Temperature 97.8 F Pulse Rate 74 73 70 Respiratory Rate 18 Blood Pressure 106/66 Pulse Oximetry 98 06/03/18 04:00 06/03/18 08:00 06/03/18 12:00 Temperature 97.7 F 97.8 F 98.0 F Pulse Rate 70 71 76 Respiratory Rate 18 15 14 Blood Pressure 118/57 L 134/67 121/60 Pulse Oximetry 99 97 99 06/03/18 16:00 06/03/18 18:47 06/03/18 19:24 Temperature 98.3 F Pulse Rate 72 77 Respiratory Rate 16 20 21 Blood Pressure 136/62 Pulse Oximetry 98 97 06/03/18 20:00 Temperature 98.2 F Pulse Rate 76 Respiratory Rate 18 Blood Pressure 123/61 Pulse Oximetry 95 Intake & Output 06/03/18 06/03/18 06/04/18 06:59 18:59 06:59 Intake Total 580 / 580 100 / 100 Output Total 2250 / 2250 Balance -1670 / -1670 100 / 100 Weight 99.4 kg Intake: IV 100 / 100 100 / 100 Flexbumin 25% Inj 100 ML @ 60 100 / 100 100 / 100 mls/hr IV.SIG Q12H [facility] Rx#: [id number] Oral 480 / 480 Output: Urine 1550 / 1550 Urine Amount (Catheter) 700 / 700 Indwelling Urethral Catheter 700 / 700 Other: Date of Last Bowel Movement 05/31/18 05/31/18 # Bowel Movements 0 Weight On Admission 99.1 kg Narrative: GENERAL: Patient lying in bed watching TV. NAD, AAOx3 SKIN: Significant dryness and evidence of venous stasis on anterior shins bilaterally. No edema. HEAD: Atraumatic. Normocephalic. CARDIOVASCULAR: Regular rate and rhythm. RESPIRATORY: Occasional wheeze in the bilateral mid lungs, expiratory airflow minimally restricted. No accessory muscle use. Breath sounds equal bilaterally. GASTROINTESTINAL: Abdomen obese. Nontender, normal bowel sounds appreciated. MUSCULOSKELETAL: Extremities without clubbing, cyanosis. Minimal pitting edema improving on anterior shins, dependent edema on posterior thighs. No obvious deformities. GENITOURINARY: Scrotal edema still impressive but improving daily. Patient still has Chung catheter in place that was placed on 05/22 with minimal penile discharge. No erythema of the urethral meatus. NEUROLOGICAL: Awake and alert. No obvious cranial nerve deficits. Patient has asterixis on extension arms bilateral tremulous flapping that is better than yesterday but still present. He has no other gross neurological deficits. Judgment and recall intact. - Urinary Catheter Management Indwelling Urethral Catheter Cath placed during this visit: yes, but has since been removed by the nurse Reason for continuing: Not indwelling catheter Insertion date: 05/22/18 Insertion time: 12:37 Removal date: 06/03/18 Removal time: 13:30 Assessment and Plan - Assessment (1) Acute kidney injury superimposed on chronic kidney disease Code(s): N17.9 - Acute kidney failure, unspecified; N18.9 - Chronic kidney disease, unspecified Status: Acute Plan: Patient with chronic kidney disease and ALSIHA.'Has Congestive heart failure and anasarca. Serum albumin level 2.9: Added albumin infusion to help mobilize fluids for diuresis. Ongoing anasarca and scrotal edema On Bumex 0.5mg/ hour infusion. Still ongoing edema and possible cardiorenal component of renal dysfunction. Creatinine is stable now at 2.7, BUN increasing, K is normal. On Bumex 2 mg TID. Continue Metolazone. Seen by Urology. Ammonia was slightly elevated started on Lactulose. BUN and Creatinine started improving Follow the urine out put and BMP. (2) Hyperlipidemia Code(s): E78.5 - Hyperlipidemia, unspecified Status: Acute Qualifiers: Hyperlipidemia type: unspecified Qualified Code(s): E78.5 - Hyperlipidemia , unspecified Plan: On atorvastatin (3) Edema Code(s): R60.9 - Edema, unspecified Status: Acute Plan: Continue diuresis maintain strict I+O Daily weights Low sodium diet. 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 Elevated at times. (5) CHF (congestive heart failure), NYHA class IV Code(s): I50.9 - Heart failure, unspecified Status: Acute Qualifiers: Congestive heart failure type: combined Congestive heart failure chronicity : acute on chronic Qualified Code(s): I50.43 - Acute on chronic combined systolic (congestive) and diastolic (congestive) heart failure Plan: On lasix, patient reports that edema is improving. (6) Elevated troponin Code(s): R74.8 - Abnormal levels of other serum enzymes Status: Acute Plan: Cardiology following
[2018-06-04 07:00] LABS: Baso % (Auto) 0.6 % (0.0-2.0); Eos # (Auto) 0.3 th/mm3 (0.0-0.4); Eos % (Auto) 4.4 % (0.0-4.0); Hematocrit 23.8 % (39.0-51.0); Hemoglobin 7.8 gm/dL (13.0-17.0); Lymph # (Auto) 1.9 th/mm3 (1.0-4.8); Lymph % (Auto) 25.5 % (9.0-44.0); Mean Corpuscular HGB Conc 32.8 % (32.0-36.0); Mean Corpuscular Hemoglobin 29.2 pg (27.0-34.0); Mean Platelet Volume 8.5 fL (7.0-11.0); Mono # (Auto) 0.9 th/mm3 (0.0-0.9); Mono % (Auto) 12.2 % (0.0-8.0); Neut # (Auto) 4.3 th/mm3 (1.8-7.7); Neut % (Auto) 57.3 % (16.0-70.0); Platelet Count 216 th/mm3 (150-450); Red Blood Count 2.67 mil/mm3 (4.50-5.90); Red Cell Distribution Width 15.6 % (11.6-17.2); White Blood Count 7.6 th/mm3 (4.0-11.0)
[2018-06-04 07:23] LABS: Calcium 8.9 mg/dL (8.5-10.1); Carbon Dioxide 42.8 meq/L (21.0-32.0); Potassium 3.9 meq/L (3.5-5.1)
[2018-06-04] MEDS: Insulin NovoLOG Aspart Correctional Sugar Inj SQ SCH ×2 (08:05→13:03)
[2018-06-04] MEDS: Polyethylene Glycol 3350 17 GM Packet PO SCH (08:22)
[2018-06-04] MEDS: Famotidine 20 MG Tablet PO SCH (08:23)
[2018-06-04] MEDS: Gabapentin 100 MG Capsule PO SCH ×2 (08:23→13:03)
[2018-06-04] MEDS: Furosemide 40 MG Tablet PO SCH (08:23)
[2018-06-04] MEDS: Ferrous Sulfate 325 MG Tablet PO SCH (08:23)
[2018-06-04] MEDS: Carvedilol 12.5 MG Tablet PO SCH (08:23)
[2018-06-04] MEDS: Lisinopril 5 MG Tablet PO SCH (08:24)
[2018-06-04] MEDS: Insulin Detemir Inj 1,000 UNIT/10 ML Vial SQ SCH (08:24)
[2018-06-04] MEDS: Senna/Docusate Sodium 8.6/50 MG Tablet PO SCH (08:28)
[2018-06-04] MEDS: Budesonide-Formoterol 160/4.5 MCG 6 GM Inhaler INH SCH (08:33)
[2018-06-04] MEDS: Nystatin 100,000 UNITS/GM Powder 15 GM Bottle TOPICAL SCH ×2 (08:34→13:04)
[2018-06-04] MEDS: Enoxaparin Inj 30 MG/0.3 ML Syringe SQ SCH (08:37)
[2018-06-04] MEDS: Albumin Human 25% Inj 100 ML IV.SIG SCH (11:25)
--- NOTE | 2018-06-04 12:00 | P.PNFP ---
Subjective Interval history: Patient states he is doing better today but that he is still hallucinating. Vitals stable overnight. Passed voiding trial yesterday evening, urinated 450 cc yesterday. Results - Labs Result diagrams: 06/04/18 06:18 06/04/18 06:18 Abnormal lab results 06/02/18 06/03/18 06/03/18 Range/Units 09:20 12:19 17:13 RBC (4.50-5.90) mil/mm3 Hgb (13.0-17.0) gm/dL Hct (39.0-51.0) % Pepin % (Auto) (0.0-8.0) % Eos % (Auto) (0.0-4.0) % Chloride (98-107) meq/L Carbon Dioxide (21.0-32.0) meq/L BUN (7-18) mg/dL Creatinine (0.60-1.30) mg/dL Estimated GFR (>89) mL/min POC Glucose 197 H 279 H (68-110) mg/dl Random Glucose (74-106) mg/dL Methylmalonic Acid 0.54 H (<=0.40) nmol/mL 06/03/18 06/04/18 06/04/18 Range/Units 19:51 02:25 06:18 RBC 2.67 L (4.50-5.90) mil/mm3 Hgb 7.8 L (13.0-17.0) gm/dL Hct 23.8 L (39.0-51.0) % Pepin % (Auto) 12.2 H (0.0-8.0) % Eos % (Auto) 4.4 H (0.0-4.0) % Chloride (98-107) meq/L Carbon Dioxide (21.0-32.0) meq/L BUN (7-18) mg/dL Creatinine (0.60-1.30) mg/dL Estimated GFR (>89) mL/min POC Glucose 332 H 196 H (68-110) mg/dl Random Glucose (74-106) mg/dL Methylmalonic Acid (<=0.40) nmol/mL 06/04/18 06/04/18 Range/Units 06:18 07:53 RBC (4.50-5.90) mil/mm3 Hgb (13.0-17.0) gm/dL Hct (39.0-51.0) % Pepin % (Auto) (0.0-8.0) % Eos % (Auto) (0.0-4.0) % Chloride 92 L (98-107) meq/L Carbon Dioxide 42.8 H (21.0-32.0) meq/L BUN 77 H (7-18) mg/dL Creatinine 2.71 H (0.60-1.30) mg/dL Estimated GFR 24 L (>89) mL/min POC Glucose 120 H (68-110) mg/dl Random Glucose 122 H (74-106) mg/dL Methylmalonic Acid (<=0.40) nmol/mL Short CBC 06/04/18 Range/Units 06:18 WBC 7.6 (4.0-11.0) th/mm3 Hgb 7.8 L (13.0-17.0) gm/dL Hct 23.8 L (39.0-51.0) % Plt Count 216 (150-450) th/mm3 BMP 06/04/18 06:18 Sodium 140 Potassium 3.9 Chloride 92 L Carbon Dioxide 42.8 H BUN 77 H Creatinine 2.71 H Calcium 8.9 Physical Exam Vital signs: Vital Signs 06/03/18 16:00 06/03/18 18:47 06/03/18 19:24 Temperature 98.3 F Pulse Rate 72 77 Respiratory Rate 16 20 21 Blood Pressure 136/62 Pulse Oximetry 98 97 06/03/18 19:50 06/03/18 20:00 06/04/18 00:00 Temperature 98.2 F 97.5 F L Pulse Rate 77 76 79 Respiratory Rate 18 18 Blood Pressure 123/61 131/63 Pulse Oximetry 95 97 06/04/18 00:25 06/04/18 03:42 06/04/18 03:52 Temperature 97.6 F Pulse Rate 73 63 62 Respiratory Rate 16 Blood Pressure 116/56 L Pulse Oximetry 97 06/04/18 08:00 06/04/18 08:36 06/04/18 09:00 Temperature 96.2 F L Pulse Rate 66 64 Respiratory Rate 16 20 Blood Pressure 144/66 H Pulse Oximetry 98 Intake & Output 06/03/18 06/04/18 06/04/18 18:59 06:59 18:59 Intake Total 100 / 100 400 / 400 Output Total 450 / 450 Balance 100 / 100 -50 / -50 Weight 96.9 kg Intake: IV 100 / 100 100 / 100 Flexbumin 25% Inj 100 ML @ 60 100 / 100 100 / 100 mls/hr IV.SIG Q12H [facility] Rx#: [id number] Oral 300 / 300 Output: Urine 450 / 450 Other: Date of Last Bowel Movement 05/31/18 06/03/18 # Bowel Movements 0 Narrative: GENERAL: Patient lying in bed watching TV. NAD, AAOx3 SKIN: Significant dryness and evidence of venous stasis on anterior shins bilaterally. HEAD: Atraumatic. Normocephalic. CARDIOVASCULAR: Regular rate and rhythm. RESPIRATORY: No accessory muscle use. Breath sounds equal bilaterally. GASTROINTESTINAL: Abdomen obese. Nontender, normal bowel sounds appreciated. MUSCULOSKELETAL: Extremities without clubbing, cyanosis, and edema. NEUROLOGICAL: Awake and alert. No obvious cranial nerve deficits. No tremors noted. He has no other gross neurological deficits. Judgment and recall intact. - Urinary Catheter Management Indwelling Urethral Catheter Cath placed during this visit: yes, but has since been removed by the nurse Reason for continuing: Not indwelling catheter Insertion date: 05/22/18 Insertion time: 12:37 Removal date: 06/03/18 Removal time: 13:30 Assessment and Plan - Assessment (1) Hallucinations, visual Code(s): R44.1 - Visual hallucinations Status: Acute Plan: Likely delirium due to patients long hospital stay as well as intact cognition and inconsistent symptoms. Importance of sleep and opening curtains during the day discussed. Plan: -Psychiatry consulted -Seroquel 25 mg HS for sleep (2) Asterixis Code(s): R27.8 - Other lack of coordination Status: Acute Plan: Not observed today. On lactulose daily (3) Chronic kidney disease Code(s): N18.9 - Chronic kidney disease, unspecified Status: Acute Plan: Continue with nephrology recommendations Transitioned to PO Lasix 40 mg BID after speaking w/Dr. Armenta Plan to continue after DC, will need BMP checked at some point for continued monitoring (4) CHF (congestive heart failure), NYHA class IV Code(s): I50.9 - Heart failure, unspecified Status: Acute Plan: Ischemic cardiomyopathy, ejection fraction less than 20%. 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 Carlson on board. Occasional wheezing and slightly was instructed airflow on exam today Continue Symbicort BID duo nebs BID Albuterol PRN O2 as needed Incentive spirometry (6) Ischemic cardiomyopathy Code(s): I25.5 - Ischemic cardiomyopathy Status: Acute Plan: -EF 35%, FEV1 0.8. Poor surgical candidate. Will be evaluated possibly next or Thursday for surgical intervention-CABG. -Continue carvedilol and JEREMY inhibitor (7) CAD (coronary artery disease) Code(s): I25.10 - Atherosclerotic heart disease of [place] coronary artery without angina pectoris Status: Acute Plan: -Patient with history of previous GA -Continue aspirin and Plavix -Continue atorvastatin 80 mg p.o. HS (8) Balanitis Code(s): N48.1 - Balanitis Status: Acute Plan: Improving. Chung removed. -Continue Neosporin treatment PRN (9) DM2 (diabetes mellitus, type 2) Code(s): E11.9 - Type 2 diabetes mellitus without complications Status: Acute Plan: Improved control, with dip into blood sugar 57 overnight. Patient reports eating crackers at bedside that may be skewing his blood sugar levels. Plan: - Levemir dose to 48 BID - Med dose SSI (10) Anemia Code(s): D64.9 - Anemia, unspecified Status: Acute Plan: Stable Normocytic Iron studies show iron deficiency anemia -Continue iron supplementation (11) HTN (hypertension) Code(s): I10 - Essential (primary) hypertension Status: Acute Plan: Normotensive -Continue with carvedilol 12.5 mg twice daily -Continue Lisinopril 2.5 mg daily (12) Diabetic neuropathy Code(s): E11.40 - Type 2 diabetes mellitus with diabetic neuropathy, unspecified Status: Acute Plan: Improved. - Continue gabapentin 200 mg 3 times daily while inpatient (13) Nutrition, metabolism, and development symptoms Code(s): R63.8 - Other symptoms and signs concerning food and fluid intake Status: Acute Plan: Fluids: Oral fluids only, restrict to 1.5 L due to CHF Electrolytes: Monitor and replete as needed Nutrition: Cardiac and diabetic diet. Salt restricted 2g daily. DVT prophy: Lovenox 30 mg daily - Assessment and Plan 63-year-old male presented with acute on chronic CHF exacerbation. Elevated BNP with bilateral 2+ pitting edema, distended abdomen, crackles bilaterally throughout all lung watkins. Patient was started on 40 IV Lasix twice daily and improved. Cardiology consulted due to ejection fraction of less than 20% and plan to perform nuclear viability study to determine if he needs a CABG. Patient also has diabetes, on Levemir 20 units twice daily, high dose sliding scale. ACS rule out was negative. Patient is continued to be diuresed, followed by nephrology, and insulin regimen adjusted to better control blood sugars. Developed balanitis and urethritis, was placed on nystatin and neomycin ointment to control symptoms. Urinalysis suggestive of infection. Urine culture ordered Discharge Planning: DC today (3) Chronic kidney disease Qualifiers: Chronic kidney disease stage: unspecified stage Qualified Code(s): N18.9 - Chronic kidney disease, unspecified (4) CHF (congestive heart failure), NYHA class IV Qualifiers: Congestive heart failure type: combined Congestive heart failure chronicity: acute on chronic Qualified Code(s): I50.43 - Acute on chronic combined systolic (congestive) and diastolic (congestive) heart failure (9) DM2 (diabetes mellitus, type 2) Qualifiers: Diabetes mellitus intermediate insulin use: with intermediate accountant use Diabetes mellitus complication status: with circulatory complication Diabetes mellitus complication detail: with other circulatory complications Qualified Code(s): E11.59 - Type 2 diabetes mellitus with other circulatory complications; Z79.4 - terminal supervisor (current) use of insulin (10) Anemia Qualifiers: Anemia type: unspecified type Qualified Code(s): D64.9 - Anemia, unspecified (11) HTN (hypertension) Qualifiers: Hypertension type: essential hypertension Qualified Code(s): I10 - Essential (primary) hypertension
[2018-06-04 12:27] VITALS: BP 114/54; PULSE 71; RESP 14; TEMP 97.6; O2SAT 99
--- NOTE | 2018-06-04 12:42 | P.DCO ---
- Physical Therapy Order: Evaluate and treat, Improve ambulation, Strength and gait training - Home Health Nursing Order: Medical education - Case Management Consult Case Management Consult-Home Health: Yes - Certification I have seen patient Jean Carlos Goodman on 06/04/18. My clinical findings support the need for the requested home health care services because: Limited mobility due to disease progression I certify that my clinical findings support that this patient is homebound because: Unsteady gait/balance
--- NOTE | 2018-06-04 15:35 | P.PNPL ---
Subjective Interval history: 63 YOWM with CAD,CMP,COPD , restrictive lung disease Breathing better Perfusion scan showes fixed defect and EF 32% Scrotal swelling decreasing Physical Exam Vital signs: Vital Signs 06/03/18 16:00 06/03/18 18:47 06/03/18 19:24 Temperature 98.3 F Pulse Rate 72 77 Respiratory Rate 16 20 21 Blood Pressure 136/62 Pulse Oximetry 98 97 06/03/18 19:50 06/03/18 20:00 06/04/18 00:00 Temperature 98.2 F 97.5 F L Pulse Rate 77 76 79 Respiratory Rate 18 18 Blood Pressure 123/61 131/63 Pulse Oximetry 95 97 06/04/18 00:25 06/04/18 03:42 06/04/18 03:52 Temperature 97.6 F Pulse Rate 73 63 62 Respiratory Rate 16 Blood Pressure 116/56 L Pulse Oximetry 97 06/04/18 08:00 06/04/18 08:36 06/04/18 09:00 Temperature 96.2 F L Pulse Rate 66 64 Respiratory Rate 16 20 Blood Pressure 144/66 H Pulse Oximetry 98 06/04/18 12:00 Temperature 97.6 F Pulse Rate 71 Respiratory Rate 14 Blood Pressure 114/54 L Pulse Oximetry 99 Intake & Output 06/03/18 06/04/18 06/04/18 18:59 06:59 18:59 Intake Total 100 / 100 400 / 400 100 / 100 Output Total 450 / 450 Balance 100 / 100 -50 / -50 100 / 100 Weight 96.9 kg Intake: IV 100 / 100 100 / 100 100 / 100 Flexbumin 25% Inj 100 ML @ 60 100 / 100 100 / 100 100 / 100 mls/hr IV.SIG Q12H [facility] Rx#: [id number] Oral 300 / 300 Output: Urine 450 / 450 Other: Date of Last Bowel Movement 05/31/18 06/03/18 # Bowel Movements 0 GENERAL: Obese WM, NAD SKIN: Warm and dry. HEAD: Normocephalic. EYES: No scleral icterus. No injection or drainage. NECK: Supple, trachea midline. No JVD or lymphadenopathy. CARDIOVASCULAR: Regular rate and rhythm without murmurs, gallops, or rubs. RESPIRATORY: Breath sounds equal bilaterally. No accessory muscle use. GASTROINTESTINAL: Abdomen soft, non-tender, nondistended. MUSCULOSKELETAL: No cyanosis, or edema. BACK: Nontender without obvious deformity. No CVA tenderness. - Urinary Catheter Management Indwelling Urethral Catheter Cath placed during this visit: yes, but has since been removed by the nurse Reason for continuing: Not indwelling catheter Insertion date: 05/22/18 Insertion time: 12:37 Removal date: 06/03/18 Removal time: 13:30 Assessment and Plan - Plan IMPRESSION: 1. Severe pulmonary disease. He has obstructive lung disease as well as restrictive lung disease. His FEV1 is 0.81. 2. Severe cardiomyopathy with an ejection fraction of 32%. 3. Multivessel coronary artery disease. 4. Diabetes mellitus. 5. Neuropathy. 6. Obesity. 7. Renal insufficiency. PLAN: Aerosol nebs Diurease Bumex Monitor Renal functions Symbicort 2 puffs bid Plavix 75 mg daily Flonase NS DC plans underway.
--- NOTE | 2018-06-04 21:39 | P.PNNP ---
Subjective Interval history: Patient seen in AM, doing better, breathing and swelling better. Physical Exam Vital signs: Vital Signs 06/04/18 00:00 06/04/18 00:25 06/04/18 03:42 Temperature 97.5 F L 97.6 F Pulse Rate 79 73 63 Respiratory Rate 18 16 Blood Pressure 131/63 116/56 L Pulse Oximetry 97 97 06/04/18 03:52 06/04/18 08:00 06/04/18 08:36 Temperature 96.2 F L Pulse Rate 62 66 Respiratory Rate 16 20 Blood Pressure 144/66 H Pulse Oximetry 98 06/04/18 09:00 06/04/18 12:00 Temperature 97.6 F Pulse Rate 64 71 Respiratory Rate 14 Blood Pressure 114/54 L Pulse Oximetry 99 Intake & Output 06/04/18 06/04/18 06/05/18 06:59 18:59 06:59 Intake Total 400 / 400 100 / 100 Output Total 450 / 450 Balance -50 / -50 100 / 100 Weight 96.9 kg Intake: IV 100 / 100 100 / 100 Flexbumin 25% Inj 100 ML @ 60 100 / 100 100 / 100 mls/hr IV.SIG Q12H [facility] Rx#: [id number] Oral 300 / 300 Output: Urine 450 / 450 Other: Date of Last Bowel Movement 06/03/18 # Bowel Movements 0 Narrative: GENERAL: Patient lying in bed watching TV. NAD, AAOx3 SKIN: Significant dryness and evidence of venous stasis on anterior shins bilaterally. HEAD: Atraumatic. Normocephalic. CARDIOVASCULAR: Regular rate and rhythm. RESPIRATORY: No accessory muscle use. Breath sounds equal bilaterally. GASTROINTESTINAL: Abdomen obese. Nontender, normal bowel sounds appreciated. MUSCULOSKELETAL: Extremities without clubbing, cyanosis, and edema. NEUROLOGICAL: Awake and alert. No obvious cranial nerve deficits. No tremors noted. He has no other gross neurological deficits. Judgment and recall intact. - Urinary Catheter Management Indwelling Urethral Catheter Cath placed during this visit: yes, but has since been removed by the nurse Reason for continuing: Not indwelling catheter Insertion date: 05/22/18 Insertion time: 12:37 Removal date: 06/03/18 Removal time: 13:30 Assessment and Plan - Assessment (1) Acute kidney injury superimposed on chronic kidney disease Code(s): N17.9 - Acute kidney failure, unspecified; N18.9 - Chronic kidney disease, unspecified Status: Acute Plan: Patient with chronic kidney disease and ALISHA.'Has Congestive heart failure and anasarca. Serum albumin level 2.9: Added albumin infusion to help mobilize fluids for diuresis. Ongoing anasarca and scrotal edema On Bumex 0.5mg/ hour infusion. Still ongoing edema and possible cardiorenal component of renal dysfunction. On Bumex 2 mg TID. Continue Metolazone. Edema is better. Seen by Urology. BUN and Creatinine increase slightly now 2.7. For D/C home, I will follow as out patient. (2) Hyperlipidemia Code(s): E78.5 - Hyperlipidemia, unspecified Status: Acute Qualifiers: Hyperlipidemia type: unspecified Qualified Code(s): E78.5 - Hyperlipidemia , unspecified Plan: On atorvastatin (3) Edema Code(s): R60.9 - Edema, unspecified Status: Acute Plan: Continue diuresis maintain strict I+O Daily weights Low sodium diet. (4) DM2 (diabetes mellitus, type 2) Code(s): E11.9 - Type 2 diabetes mellitus without complications Status: Acute Qualifiers: Diabetes mellitus retirement insulin use: with healthcare or medical use Diabetes mellitus complication status: with circulatory complication Diabetes mellitus complication detail: with other circulatory complications Qualified Code(s): E11.59 - Type 2 diabetes mellitus with other circulatory complications; Z79.4 - half-way (current) use of insulin Plan: Maintain blood sugars between 140 mg/dl to 180 mg/dl while hospitalized. Elevated at times. (5) CHF (congestive heart failure), NYHA class IV Code(s): I50.9 - Heart failure, unspecified Status: Acute Qualifiers: Congestive heart failure type: combined Congestive heart failure chronicity : acute on chronic Qualified Code(s): I50.43 - Acute on chronic combined systolic (congestive) and diastolic (congestive) heart failure Plan: On lasix, patient reports that edema is improving. (6) Elevated troponin Code(s): R74.8 - Abnormal levels of other serum enzymes Status: Acute Plan: Cardiology following
--- NOTE | 2018-06-07 20:21 | P.DS ---
Date of admission: 05/22/18 12:43 Primary care physician: Rainer Farooq Brief History from admission: Delayed entry, patient was examined independent of the resident team by myself on 05/22/2018 at 13:00. He is a 63-year-old male presenting to the emergency department with progressive dyspnea and edema. He has a known history of significant coronary artery disease and severe congestive heart failure. He states that over the last month he has had significant shortness of breath and for the last week he has been having significant swelling of his legs and lower abdomen, and swelling of his scrotum. He has been unable to lie flat to sleep because of his shortness of breath. He also has been having a significant cough productive of a white, frothy sputum. He has a significant history of congestive heart failure and coronary artery disease. He was hospitalized approximately 6 weeks ago at which time he underwent cardiac catheterization and was found to have severe coronary artery disease. He was evaluated by cardiothoracic surgery who felt that he was too high risk for consideration of revascularization or bypass surgery. His ejection fraction at that time was less than 20% and he was recommended to go out on a cardiac LifeVest, however he states that he did not leave the hospital with a LifeVest due to his being legally blind and unable to properly manage a LifeVest. He does state that he obtained his discharge medications and has been taking them as scheduled, however did not no about a fluid restriction or salt limitation to his diet DS: Diagnosis - Discharge Diagnosis (1) Hallucinations, visual Status: Acute (2) Asterixis Status: Acute (3) Chronic kidney disease Status: Acute (4) CHF (congestive heart failure), NYHA class IV Status: Acute (5) COPD (chronic obstructive pulmonary disease) Status: Acute (6) Ischemic cardiomyopathy Status: Acute (7) CAD (coronary artery disease) Status: Acute (8) Balanitis Status: Acute (9) DM2 (diabetes mellitus, type 2) Status: Acute (10) Anemia Status: Acute (11) HTN (hypertension) Status: Acute (12) Diabetic neuropathy Status: Acute (13) Nutrition, metabolism, and development symptoms Status: Acute DS: Medications - Discharge Medications Prescriptions: amoxicillin-pot clavulanate [Augmentin] 1 tab PO BID #14 tab furosemide 40 mg PO BID@0900,1800 #90 tab gabapentin 200 mg PO TID #90 cap [id number] [Triple Antibiotic] 1 applicatio TOPICAL BID #1 tube nystatin [Nystop] 1 applicatio TOPICAL QID #1 tube DS: Summary Hospital Course: 63-year-old male presented with acute on chronic CHF exacerbation. Elevated BNP with bilateral 2+ pitting edema, distended abdomen, crackles bilaterally throughout all lung watkins. Patient was started on 40 IV Lasix twice daily and improved. Cardiology consulted due to ejection fraction of less than 20% and plan to perform nuclear viability study to determine if he needs a CABG. Patient also has diabetes, on Levemir 20 units twice daily, high dose sliding scale. ACS rule out was negative. Patient is continued to be diuresed, followed by nephrology, and insulin regimen adjusted to better control blood sugars. Developed balanitis and urethritis, was placed on nystatin and neomycin ointment to control symptoms. In addition, during course of hospitalization, patient developed worsening peripheral neuropathy. Lyrica was replaced with gabapentin 200 mg to be given 3 times a day (per patient request) , which controlled the patient's symptoms. most of patient's symptoms resolved completely; however, patient complained of new onset visual hallucinations. Ammonia level was ordered (which was showed to be slightly elevated) and patient was evaluated for sources of infection. Urinalysis suggestive of infection. Urine culture ordered and was positive for group D enterococcus. This raises suspicion for complicated UTI in the context of prolonged Chung catheter use plus hallucinations. Started on Augmentin 500 p.o. milligrams twice daily to be given for 7 days. This was given to patient on discharge. Hallucinations were thought to be secondary to delirium from poor sleep and/or possible UTI. Was given Seroquel at night to help with sleep, which worked well for patient. Psychiatry was consulted to evaluate patient for new onset hallucinations. Patient was provided oral Lasix to be taken outpatient for continued diuresis. Patient was provided referral to follow-up with PCP Dr. Farooq for continued monitoring. Patient was also given referrals to follow- up with nephrology, cardiology, and CV surgery for CABG next /Thursday. - Time Spent with Patient Total time spent providing and/or coordinating discharge services: Greater than 30 minutes Results Procedures completed during hospitalization: None - Impressions ITS Impressions Chest X-Ray 05/23/18 06:00 CONCLUSION: Stable appearance of congestive heart failure with pulmonary edema and bilateral pleural effusions. Myocardial Perfusion Scan Nuc Med 05/26/18 00:00 CONCLUSION: 1. Significantly diminished perfusion involving the LAD and RCA territories has the appearance of myocardial infarction. The only part of the myocardium that appears viable is anterolateral wall. Abdomen Ultrasound 06/01/18 00:00 CONCLUSION: 1. Enlarged echogenic liver consistent with hepatic steatosis versus medical renal disease. 2. Mild gallbladder wall thickening likely due to hypoalbuminemia/chronic liver dysfunction. This limits overall sonographic sensitivity for evaluation of cholecystitis. 3. Trace ascites. 4. Echogenic kidneys consistent with medical renal disease. Discharge Plan - Discharge Disposition Patient Disposition: W/Home Health Service - Discharge Condition Condition: Stable - Discharge Order Discharge Orders: Discharge Order (Routine); Ordered 06/04/18 Ordered By: Marlee Upton R2 - Discharge Details Anticipated Discharge Date: 06/04/18 Discharge Comment: DC at 3 pm - Physicians Team Attending Provider: Jose Monroe Other Providers: Peterson Montiel MD ; sEtela Hernandez MD ; Karlos Armenta MD ; Suman Carlson MD ; Maxx Cook MD ; Bernardo Mueller MD
== END 2018-06-04 15:23 | disposition home health service (06) | DRG 280 ==
LOC: NEPC 11:11 → NEDA 12:43 → HCIS 15:42 → N04 06-02 23:44
PROVIDERS: ADMIT Family Medicine; ATTEND Family Medicine
CPT/HCPCS: 36600; 71010; 71020; 71045; 71046; 76700; 78452; 80048; 80053; 80061; 81001; 82140; 82607; 82728; 82746; 82803; 82805; 82948; 82962; 83010; 83036; 83520; 83540; 83550; 83735; 83880; 83918; 83921; 84100; 84443; 84484; 85025; 85027; 85044; 87070; 87077; 87086; 87186; 90774; 90775; 90784; 93005; 93017; 93308; 94002; 94003; 94010; 94150; 94640; 94656; 94657; 94664; 94665; 96374; 96375; 97110; 97116; 97162; 97530; 99285; A9502; A9505; C8952; J1650; J1815; J1940; J2785; P9047; S0171

== ENCOUNTER 2018-06-11 07:28 | Observation (INO) ==
--- NOTE | 2018-06-11 08:14 | ED ---
HPI General Chief complaint: Nausea/Vomiting/Diarrhea Stated complaint: Medical Time Seen by Provider: 06/11/18 07:55 History of Present Illness HPI narrative: This is a 63-year-old male with a history of CHF, diabetes mellitus, hypertension, chronic kidney disease, coronary artery disease, presents today with complaints of not being able to hold down his medication for several days. Patient states that he has been throwing up for the last several days and has not been able to keep his medication down. Patient was recently admitted to the hospital. The patient states that he was doing fine for the first 2 days however shortly thereafter, he started experiencing nausea. He states that he is not been able to keep down his medications. He reports that he knows his sugar is high. He reports trying to get it down with insulin however is concerned because he cannot keep down his other medications. He denies any chest pain, chest pressure. Patient reports that he has been urinating normally. He denies any bowel movement because he states he has not had any food. Related Data Home Medications Medication Instructions Recorded Confirmed hydrocodone-acetaminophen [[place]] 1 tab PO Q6H 01/15/18 06/11/18 ranitidine HCl [Zantac] 150 mg PO BID 01/15/18 06/11/18 sitagliptin-metformin [Janumet] 1 tab PO DAILY 01/15/18 06/11/18 tamsulosin [Flomax] 0.4 mg PO HS 01/15/18 06/11/18 insulin detemir U-100 [Levemir 50 unit SUBCUT BID 06/11/18 06/11/18 U-100 Insulin] Previous Rx's Medication Instructions Recorded ipratropium bromide [Atrovent HFA] 1 puff INHALATION BID #1 g 03/14/18 albuterol sulfate 2.5 mg INHALATION TID-QID PRN #30 03/27/18 each carvedilol [Coreg] 12.5 mg PO BID #60 tab 04/06/18 lisinopril 2.5 mg PO DAILY #30 tab 04/06/18 aspirin 81 mg PO DAILY #60 tab 04/08/18 atorvastatin [Lipitor] 80 mg PO HS #60 tab 04/08/18 clopidogrel [Plavix] 75 mg PO DAILY #60 tab 04/08/18 amoxicillin-pot clavulanate 1 tab PO BID #14 tab 06/04/18 [Augmentin] furosemide 40 mg PO BID@0900,1800 #90 tab 06/04/18 gabapentin 200 mg PO TID #90 cap 06/04/18 Allergies Allergy/AdvReac Type Severity Reaction Status Date / Time No Known Allergies Allergy Verified 06/11/18 07:36 Review of Systems ROS: all other systems reviewed are negative Constitutional Denies chills and Denies fever(s) Eyes Reports system reviewed and no additional complaints, except as docu ENT Reports system reviewed and no additional complaints, except as docu Cardiovascular Denies chest pain, Denies diaphoresis and Denies dyspnea Respiratory Denies chest congestion, Reports cough and Denies dyspnea Gastrointestinal Denies abdominal pain, Denies diarrhea, Reports nausea and Reports vomiting Genitourinary Reports system reviewed and no additional complaints, except as docu Musculoskeletal Reports system reviewed and no additional complaints, except as docu Integumentary/Breasts Reports other ("[place]" on buttocks from previous admission.) Neurologic Denies dizziness, Denies headache(s) and Reports weakness (Neurolysed weakness.) [facility] Social History Social History Substance History: No History of Abuse Second Hand Smoke Exposure: No Smoking Status: Former smoker Tobacco Type: Cigarettes How Often Do You Have a Drink Containing Alcohol: Never Recent Travel in [facility] within the Last 8 Weeks: No Recent Out of Country Travel within the Last 8 Weeks: No Immunization History Tetanus Immunization: >5 Years Exam Narrative Exam Narrative: GENERAL: Well-developed well-nourished male in no acute respiratory distress. SKIN: Focused skin assessment warm/dry. Stage I redness to the buttocks. HEAD: Atraumatic. Normocephalic. EYES: No scleral icterus. No injection or drainage. ENT: No nasal bleeding or discharge. Mucous membranes pink and moist. NECK: Trachea midline. No JVD. Supple. CARDIOVASCULAR: Regular rate and rhythm, with occasional ectopic beat. No murmur appreciated. RESPIRATORY: No accessory muscle use. Clear to auscultation. Breath sounds equal bilaterally. GASTROINTESTINAL: Abdomen soft, non-tender, nondistended. MUSCULOSKELETAL: No obvious deformities. No clubbing. No cyanosis. Trace edema. NEUROLOGICAL: Awake and alert. No obvious cranial nerve deficits. Motor grossly within normal limits. Normal speech. Course Initial Documented Vital Signs Temperature 98.3 F 06/11/18 07:40 Pulse Rate 77 06/11/18 07:40 Respiratory Rate 16 06/11/18 07:40 Blood Pressure 152/68 H 06/11/18 07:40 Pulse Oximetry 97 06/11/18 07:40 Last Documented Vital Signs Temperature 98.1 F 06/11/18 09:34 Pulse Rate 81 06/11/18 09:34 Respiratory Rate 19 06/11/18 09:34 Blood Pressure 152/68 H 06/11/18 09:34 Pulse Oximetry 98 06/11/18 09:34 Medical Decision Making MDM Narrative Medical decision making narrative: This is a 63-year-old male with a history of cardiomyopathy, COPD, CHF, hyper tension, diabetes mellitus, hepatorenal disease , who presents today with complaints of nausea vomiting and inability to hold down his medications times 2-3 days. Patient has a blood sugar over 500. He was given 8 units of IV insulin however his blood sugar is still above 400. The patient was actively vomiting after he arrived here. Given this and his history, he will be admitted under observation for blood sugar and nausea control. Chest x-ray did show a small positive fluid balance. His O2 sats were within normal limits. Medical Screen Exam Complete: Yes Emergency Medical Condition: Yes Differential Diagnosis Differential Diagnosis: Uncontrolled hyperglycemia versus other metabolic derangement versus acute coronary syndrome versus gastroparesis Lab Data Result diagrams: 06/11/18 07:51 06/11/18 07:51 Lab Results 06/11/18 06/11/18 06/11/18 Range/Units 07:50 07:51 07:51 WBC 8.9 (4.0-11.0) th/mm3 RBC 2.90 L (4.50-5.90) mil/mm3 Hgb 8.7 L (13.0-17.0) gm/dL Hct 26.0 L (39.0-51.0) % MCV 89.7 (80.0-100.0) fL MCH 30.1 (27.0-34.0) pg MCHC 33.6 (32.0-36.0) % RDW 15.6 (11.6-17.2) % Plt Count 197 (150-450) th/mm3 MPV 9.3 (7.0-11.0) fL Neut % (Auto) 69.7 (16.0-70.0) % Lymph % (Auto) 16.2 (9.0-44.0) % [place] % (Auto) 11.1 H (0.0-8.0) % Eos % (Auto) 2.3 (0.0-4.0) % Baso % (Auto) 0.7 (0.0-2.0) % Neut # (Auto) 6.2 (1.8-7.7) th/mm3 Lymph # (Auto) 1.4 (1.0-4.8) th/mm3 [place] # (Auto) 1.0 H (0.0-0.9) th/mm3 Eos # (Auto) 0.2 (0.0-0.4) th/mm3 Baso # (Auto) 0.1 (0.0-0.2) th/mm3 WBC Differential . Differential Comment Auto diff final Sodium 132 L (136-145) meq/L Potassium 3.8 (3.5-5.1) meq/L Chloride 88 L (98-107) meq/L Carbon Dioxide 33.9 H (21.0-32.0) meq/L Anion Gap 10 (5-15) meq/L BUN 53 H (7-18) mg/dL Creatinine 2.18 H (0.60-1.30) mg/dL Estimated GFR 31 L (>89) mL/min POC Glucose 551 H* (68-110) mg/dl Random Glucose 485 H* (74-106) mg/dL Calcium 8.9 (8.5-10.1) mg/dL Magnesium 2.0 (1.5-2.5) mg/dL Total Bilirubin 1.0 (0.2-1.0) mg/dL AST 63 H (15-37) U/L ALT 353 H (12-78) U/L Alkaline Phosphatase 354 H (45-117) U/L Total Creatine Kinase 69 (39-308) U/L Troponin I 0.12 H (0.02-0.05) ng/mL Total Protein 7.3 (6.4-8.2) g/dL Albumin 3.7 (3.4-5.0) g/dL Urine Color (Yellw/Straw) Urine Clarity (Clear) Urine pH (5.0-8.5) Ur Specific [place] (1.002-1.035) Urine Protein (Neg-Trace) mg/dL Urine Glucose (UA) (Negative) mg/dL Urine Ketones (Negative) mg/dL Urine Occult Blood (Negative) Urine Nitrate (Negative) Urine Bilirubin (Negative) Urine Urobilinogen (Less than 2) mg/dL Ur Leukocyte Esterase (Negative) Urine RBC (0-3) /hpf Urine WBC (0-5) /hpf Ur Squamous Epith Cells (0-5) /hpf Micro UA Comment Ur Microscopic Review Urine Culture Comments 06/11/18 06/11/18 Range/Units 09:00 09:34 WBC (4.0-11.0) th/mm3 RBC (4.50-5.90) mil/mm3 Hgb (13.0-17.0) gm/dL Hct (39.0-51.0) % MCV (80.0-100.0) fL MCH (27.0-34.0) pg MCHC (32.0-36.0) % RDW (11.6-17.2) % Plt Count (150-450) th/mm3 MPV (7.0-11.0) fL Neut % (Auto) (16.0-70.0) % Lymph % (Auto) (9.0-44.0) % [place] % (Auto) (0.0-8.0) % Eos % (Auto) (0.0-4.0) % Baso % (Auto) (0.0-2.0) % Neut # (Auto) (1.8-7.7) th/mm3 Lymph # (Auto) (1.0-4.8) th/mm3 [place] # (Auto) (0.0-0.9) th/mm3 Eos # (Auto) (0.0-0.4) th/mm3 Baso # (Auto) (0.0-0.2) th/mm3 WBC Differential Differential Comment Sodium (136-145) meq/L Potassium (3.5-5.1) meq/L Chloride (98-107) meq/L Carbon Dioxide (21.0-32.0) meq/L Anion Gap (5-15) meq/L BUN (7-18) mg/dL Creatinine (0.60-1.30) mg/dL Estimated GFR (>89) mL/min POC Glucose 412 H (68-110) mg/dl Random Glucose (74-106) mg/dL Calcium (8.5-10.1) mg/dL Magnesium (1.5-2.5) mg/dL Total Bilirubin (0.2-1.0) mg/dL AST (15-37) U/L ALT (12-78) U/L Alkaline Phosphatase (45-117) U/L Total Creatine Kinase (39-308) U/L Troponin I (0.02-0.05) ng/mL Total Protein (6.4-8.2) g/dL Albumin (3.4-5.0) g/dL Urine Color Yellow (Yellw/Straw) Urine Clarity Clear (Clear) Urine pH 6.0 (5.0-8.5) Ur Specific [place] 1.018 (1.002-1.035) Urine Protein 500 or greater (Neg-Trace) mg/dL Urine Glucose (UA) 500 or greater (Negative) mg/dL Urine Ketones Negative (Negative) mg/dL Urine Occult Blood Small H (Negative) Urine Nitrate Negative (Negative) Urine Bilirubin Negative (Negative) Urine Urobilinogen Less than 2 (Less than 2) mg/dL Ur Leukocyte Esterase Negative (Negative) Urine RBC 1 (0-3) /hpf Urine WBC 6 H (0-5) /hpf Ur Squamous Epith Cells <1 (0-5) /hpf Micro UA Comment Culture not ind Ur Microscopic Review Not Reportable Urine Culture Comments Culture not ind Imaging Data Radiologist's impression: Chest X-Ray 06/11/18 07:55 CONCLUSION: 1. Cardiomegaly with positive fluid balance. 2. Persistent patchy bilateral lower lobe airspace disease. Discharge Plan Discharge Disposition Patient Disposition: ED Admit(ED Internal Use Only) Discharge Order Discharge Orders: ED Use Only Admit Order (Routine); Ordered 06/11/18 Ordered By: Kamar Duval Discharge Details Diagnosis: Hyperglycemia, Elevated troponin, CHF (congestive heart failure), NYHA class IV , Chronic kidney disease, CAD (coronary artery disease) Physicians Team ED Provider: Kamar Duval Attending Provider: Toni Whitten Status ED Status: Admitted Observation Patient
[2018-06-11 08:27] LABS: Baso # (Auto) 0.1 th/mm3 (0.0-0.2); Baso % (Auto) 0.7 % (0.0-2.0); Eos # (Auto) 0.2 th/mm3 (0.0-0.4); Eos % (Auto) 2.3 % (0.0-4.0); Hemoglobin 8.7 gm/dL (13.0-17.0); Lymph # (Auto) 1.4 th/mm3 (1.0-4.8); Lymph % (Auto) 16.2 % (9.0-44.0); Mean Corpuscular HGB Conc 33.6 % (32.0-36.0); Mean Corpuscular Hemoglobin 30.1 pg (27.0-34.0); Mean Corpuscular Volume 89.7 fL (80.0-100.0); Mean Platelet Volume 9.3 fL (7.0-11.0); Mono % (Auto) 11.1 % (0.0-8.0); Neut # (Auto) 6.2 th/mm3 (1.8-7.7); Neut % (Auto) 69.7 % (16.0-70.0); Platelet Count 197 th/mm3 (150-450); Red Cell Distribution Width 15.6 % (11.6-17.2); White Blood Count 8.9 th/mm3 (4.0-11.0)
--- NOTE | 2018-06-11 08:43 | XR ---
EXAM DATE: 06/11/2018 8:37 AM EST AGE/SEX: 63 years / Male INDICATIONS: Cough. Patient complains of Congestion. CLINICAL DATA: This is the patient's initial encounter. Patient reports that signs and symptoms have been present for 1 day and indicates a pain score of 0/10. MEDICAL/SURGICAL HISTORY: . Chronic obstructive pulmonary disease. Hypercholesterolemia. Hypert ension. Diabetes. Peripheral artery disease. Renal failure. CHF. . Vascular surgery. COMPARISON: [facility] [place], CHEST 2V PA&LAT, 05/23/2018. . FINDINGS: Persistent patchy airspace disease at the lung bases. Mild diffuse interstitial prominence. Cardiac s ilhouette is enlarged with indistinct central pulmonary vascularity. Remainder of exam is unchanged. CONCLUSION: 1. Cardiomegaly with positive fluid balance. 2. Persistent patchy bilateral lower lobe airspace disease. Electronically signed by: Misael Pierre MD Board Certified Radiologist 06/11/2018 8:41 AM EST
[2018-06-11 08:57] LABS: Alanine Aminotransferase 353 U/L (12-78); Albumin 3.7 g/dL (3.4-5.0); Anion Gap 10 meq/L (5-15); Aspartate Aminotransferase 63 U/L (15-37); Blood Urea Nitrogen 53 mg/dL (7-18); Calcium 8.9 mg/dL (8.5-10.1); Carbon Dioxide 33.9 meq/L (21.0-32.0); Chloride 88 meq/L (98-107); Glomerular Filtration Rate 31 mL/min (>89); Potassium 3.8 meq/L (3.5-5.1); Sodium 132 meq/L (136-145)
[2018-06-11 09:09] LABS: Alkaline Phosphatase 354 U/L (45-117); Total Protein 7.3 g/dL (6.4-8.2); Troponin I 0.12 ng/mL (0.02-0.05)
[2018-06-11 09:12] LABS: Creatine Kinase 69 U/L (39-308); Glucose,Random 485 mg/dL (74-106)
[2018-06-11 09:56] LABS: Bilirubin,Urine Negative (Negative); Clarity,Urine Clear (Clear); Color,Urine Yellow (Yellw/Straw); Glucose,Urine (UA) 500 or Greater mg/dL (Negative); Leukocyte Esterase,Urine Negative (Negative); Nitrite,Urine Negative (Negative); Specific Gravity,Urine 1.018 (1.002-1.035); Squamous Epithelial Cell,Urine <1 /hpf (0-5)
--- NOTE | 2018-06-11 10:30 | P.HPFP ---
History of Present Illness Primary Care Physician: Rainer Farooq <Toni Whitten L - 06/12/18 14:20> Rainer Farooq <Gavino Joshua Schmitt Bettina - 06/11/18 10:30> History of Present Illness: This patient is a 63-year-old male with a history of CHF, diabetes mellitus, hypertension, chronic kidney disease, coronary artery disease, who presents the ED with a 3-day history of nausea vomiting and no bowel movement. Patient reports after being discharged on 07 June the patient went home and tried to eat but was unable to do so due to nausea and vomiting. The very next morning he tried to have breakfast at a diner but could not finish it and reported that it did not taste right. Since then he has vomited 1-2 times daily and cannot report whether it was bilious or bloody due to his poor eyesight. The nausea and vomiting occur only when patient tries to adjust food or water. During this time patient also experienced weakness and has not taken any of his oral medications over the last 2 days due to this nausea. Despite being nauseous patient reports a good appetite and has not experienced any abdominal pain besides pain from hunger. Yesterday patient reported trying to drink matthew olesya to settle his stomach. He reports drinking almost 2 L of matthew olesya without any nausea or vomiting. He denies any chest pain, hallucinations, twitching, shortness of breath besides his baseline, recent illnesses or diarrhea. Past medical history: CHF with ef < 20%, diabetes, COPD, CKD, Meds: Reconciled. Allergies: NKDA Surgeries: none Social Hx: Lives in a motel in [place] alone. Quit cigarettes 2 months ago, used to do e cigarettes before. Denies alcohol use. Denies drug use. No recent travel. No sick contacts. Has recently been hospitalized for CHF FMHx: Mother diabetic at 65, Father at young age from unknown injury Code: Full code. <Gavino Joshua Schmitt Bettina - 06/11/18 12:20> - Diagnosis (1) Nausea and vomiting (2) Transaminitis (3) DM2 (diabetes mellitus, type 2) (4) HTN (hypertension) (5) CHF (congestive heart failure), NYHA class IV (6) Chronic kidney disease (7) CAD (coronary artery disease) (8) Hyperlipidemia (9) COPD (chronic obstructive pulmonary disease) (10) Anemia (11) Diabetic neuropathy (12) Nutrition, metabolism, and development symptoms <Toni Whitten - 06/12/18 14:20> (1) Nausea and vomiting (2) Transaminitis (3) DM2 (diabetes mellitus, type 2) (4) HTN (hypertension) (5) CHF (congestive heart failure), NYHA class IV (6) Chronic kidney disease (7) CAD (coronary artery disease) (8) Hyperlipidemia (9) COPD (chronic obstructive pulmonary disease) (10) Anemia (11) Diabetic neuropathy (12) Nutrition, metabolism, and development symptoms <Joshua Shah - 06/11/18 18:03> Review of Systems Constitutional: Endorses minor chills, Denies fever(s), Denies headache(s), Denies dizziness, Eyes: Denies change in vision, Denies double vision, Denies blurry vision Cardiovascular: Denies chest pain, Denies fast heart rate, Denies rapid, pounding, or irregular heartbeat Respiratory: Endorses shortness of breath with activity but nothing beyond his normal baseline for COPD or wheezing Gastrointestinal: Endorses nausea, vomiting, and constipation. Denies abdominal pain, Denies loose stools Genitourinary: Denies difficulty urinating, Denies painful urination, Denies urinary frequency, Denies blood in urine <Joshua Shah - 06/11/18 11:56> PMFSH - History History Provided By: Patient, Personal Injury Law Specialist / EMT <Joshua Shah - 06/11/18 10: 30> - Medical History Medical History: Medical History (Last Reviewed 06/11/18 @ 07:52 by Sherri Ferguson) Prostate disorder COPD (chronic obstructive pulmonary disease) Congestive heart failure Diabetes High cholesterol Hypertension PAD (peripheral artery disease) Renal failure <Toni Whitten - 06/12/18 14:20> Medical History (Last Reviewed 06/11/18 @ 07:52 by Sherri Ferguson) Prostate disorder COPD (chronic obstructive pulmonary disease) Congestive heart failure Diabetes High cholesterol Hypertension PAD (peripheral artery disease) Renal failure <Joshua Shah - 06/11/18 10:30> - Surgical History Surgical History: Surgical History (Last Reviewed 06/11/18 @ 07:52 by Sherri Ferguson) H/O vascular surgery <Toni Whitten 06/12/18 14:20> Surgical History (Last Reviewed 06/11/18 @ 07:52 by Sherri Ferguson) H/O vascular surgery <Joshua Shah 06/11/18 10:30> - Family History Family History: Family History (Last Reviewed 05/24/18 @ 05:49 by Estela Hernandez MD) Other Diabetes <Toni Whitten 06/12/18 14:20> Family History (Last Reviewed 05/24/18 @ 05:49 by Estela Hernandez MD) Other Diabetes <Joshua Shah 06/11/18 10:30> - Tobacco History Second Hand Smoke Exposure: No <Joshua Shah 06/11/18 10:30> Tobacco Use In Past 30 Days: No <Joshua Shah 06/11/18 10:30> Smoking Status: Former smoker <Joshua Shah 06/11/18 10:30> Tobacco Type: Cigarettes <Joshua Shah 06/11/18 10:30> - Alcohol History How Often Do You Have a Drink Containing Alcohol: Never <Joshua Shah 10:30> - Substance Use History Substance History: No History of Abuse <Joshua Shah 06/11/18 10:30> - Travel History Recent Travel in the [facility] Within the Last 8 Weeks: No <Joshua Shah 06/11 10:30> Recent Travel Out of the Country Within the Last 8 Weeks: No <Joshua Shah 06/11/18 10:30> - Immunization History Tetanus Immunization: >5 Years <Joshua Shah 06/11/18 10:30> Medications and Allergies Allergies Allergy/AdvReac Type Severity Reaction Status Date / Time No Known Allergies Allergy Verified 06/11/18 07:36 <Toni Whitten 06/12/18 14:20> Home Medications Medication Instructions Recorded Confirmed Type hydrocodone-acetaminophen [[place]] 1 tab PO Q6H 01/15/18 06/11/18 History ranitidine HCl [Zantac] 150 mg PO BID 01/15/18 06/11/18 History sitagliptin-metformin [Janumet] 1 tab PO DAILY 01/15/18 06/11/18 History tamsulosin [Flomax] 0.4 mg PO HS 01/15/18 06/11/18 History insulin detemir U-100 [Levemir 50 unit SUBCUT BID 06/11/18 06/11/18 History U-100 Insulin] <Toni Whitten L - 06/12/18 14:20> Active Medications: Active Medications Acetaminophen (Tylenol) 650 mg PO Q4H PRN PRN Reason: Temp > 100.4 Hydrocodone Bitart/Acetaminophen ([place] 7.5/325) 1 tab PO Q6H [facility] Last Admin: 06/12/18 13:33 Dose: 1 tab Al Hydroxide/Mg Hydroxide (Milk Of Magnesia Liq) 30 ml PO Q12H PRN PRN Reason: Mild Constipation Albuterol (Albuterol Neb (Genet)) 2.5 mg NEB Q6HR NEB [facility] Last Admin: 06/12/18 08:30 Dose: 2.5 mg Albuterol (Duoneb Neb (Prn)) 1 ampul NEB Q6HR NEB PRN PRN Reason: SHORTNESS OF BREATH Bisacodyl (Dulcolax Supp) 10 mg RECTAL DAILY PRN PRN Reason: SEVERE CONSITIPATION Dextrose (D50w Vial) 50 ml IV.PUSH UNSCH PRN PRN Reason: PER HYPOGLYCEMIA PROTOCOL Furosemide (Lasix) 40 mg PO BID@0900,1800 [facility] Last Admin: 06/12/18 09:33 Dose: 40 mg Glucagon (Glucagon Inj) 1 mg OTHER PRN PRN PRN Reason: for Hypoglycemia Protocol Heparin Sodium (Porcine) (Heparin Inj) 5,000 units SQ Q12H [facility] Last Admin: 06/12/18 13:33 Dose: 5,000 units Hydralazine HCl (Apresoline Inj) 10 mg IV.PUSH Q6H PRN PRN Reason: SBP>160, DBP>90 Insulin Aspart (Novolog Insulin Correctional Sugar Inj) 0 unit SQ ACHS AND 3AM GENET; Protocol Last Admin: 06/12/18 13:32 Dose: 4 unit Insulin Detemir (Levemir Inj) 30 unit SQ BID [facility] Last Admin: 06/12/18 09:34 Dose: 30 unit Lactulose (Lactulose Liq) 30 ml PO DAILY PRN PRN Reason: SEVERE CONSITIPATION Metoclopramide HCl (Reglan Inj) 10 mg IV.PUSH BID [facility]; Protocol Last Admin: 06/12/18 09:33 Dose: 10 mg Ondansetron HCl (Zofran Inj) 4 mg IV.PUSH Q6H PRN PRN Reason: NAUSEA OR VOMITING Pantoprazole Sodium (Protonix Inj) 40 mg IV.PUSH Q24H [facility] Last Admin: 06/12/18 13:32 Dose: 40 mg Senna/Docusate Sodium (Abiola-Colace) 1 tab PO BID [facility] Last Admin: 06/12/18 09:33 Dose: Not Given Sennosides (Senokot) 17.2 mg PO Q12H PRN PRN Reason: Moderate Constipation Sodium Chloride (Ns Flush) 2 ml IV.FLUSH PRN PRN PRN Reason: FLUSH AFTER USING IV ACCESS Last Admin: 06/11/18 08:08 Dose: 2 ml Sodium Chloride (Ns Flush) 2 ml IV.FLUSH BID [facility] Last Admin: 06/12/18 09:34 Dose: 2 ml Sodium Chloride (Ns Flush) 2 ml IV.FLUSH PRN PRN PRN Reason: FLUSH AFTER USING IV ACCESS Tiotropium [facility] (Spiriva 18 Mcg Inh) 18 mcg INH DAILY [facility] Last Admin: 06/12/18 09:34 Dose: 18 mcg Trazodone HCl (Desyrel) 50 mg PO HS PRN PRN Reason: INSOMNIA Last Admin: 06/11/18 21:44 Dose: 50 mg <Toni Whitten L - 06/12/18 14:20> Active Medications Sodium Chloride (Ns Flush) 2 ml IV.FLUSH PRN PRN PRN Reason: FLUSH AFTER USING IV ACCESS Last Admin: 06/11/18 08:08 Dose: 2 ml <Joshua Shah O - 06/11/18 10:30> Exam Vital signs: Vital Signs 06/11/18 15:49 06/11/18 16:00 06/11/18 20:00 Temperature 98.1 F 97.8 F Pulse Rate 79 80 82 Respiratory Rate 20 16 18 Blood Pressure 124/81 113/55 L Pulse Oximetry 98 94 L 06/12/18 00:00 06/12/18 00:08 06/12/18 03:33 Temperature 98.5 F Pulse Rate 76 76 84 Respiratory Rate 18 20 24 Blood Pressure 133/70 Pulse Oximetry 96 94 L 06/12/18 04:00 06/12/18 08:00 06/12/18 08:32 Temperature 97.7 F 97.8 F Pulse Rate 74 82 72 Respiratory Rate 18 17 18 Blood Pressure 152/73 H 158/74 H Pulse Oximetry 96 100 95 06/12/18 12:00 Temperature 97.9 F Pulse Rate 87 Respiratory Rate 17 Blood Pressure 157/77 H Pulse Oximetry 94 L Intake & Output 06/11/18 06/12/18 06/12/18 18:59 06:59 18:59 Intake Total 1000 / 1000 3320 / 3320 400 / 400 Output Total 1850 / 1850 625 / 625 Balance -850 / -850 2695 / 2695 400 / 400 Weight 92.5 kg 93.8 kg Intake: IV 1000 / 1000 2000 / 2000 400 / 400 LR 1000 mL Inj 1,000 ML @ 90 1000 / 1000 2000 / 2000 400 / 400 mls/hr IV.CONT .Q11H7M [facility] Rx#: [id number] Oral 1320 / 1320 Output: Urine 1849 / 1850 625 / 625 Other: # Voids 2 # Urine Diapers 1 Date of Last Bowel Movement 06/08/18 06/08/18 # Bowel Movements 0 Weight On Admission 92.5 kg <Toni Whitten L - 06/12/18 14:20> Vital Signs 06/11/18 07:40 06/11/18 09:34 Temperature 98.3 F 98.1 F Pulse Rate 77 81 Respiratory Rate 16 19 Blood Pressure 152/68 H 152/68 H Pulse Oximetry 97 98 Intake & Output 06/10/18 06/11/18 06/11/18 18:59 06:59 18:59 Weight 90.718 kg Other: Date of Last Bowel Movement 06/08/18 <Joshua Shah O - 06/11/18 10:30> Narrative: GENERAL: Well-nourished, well-developed patient. No acute distress. SKIN: Significant dryness and evidence of venous stasis on anterior shins bilaterally. EYES: No scleral icterus. No injection or drainage. PERRLA. EOMI. HENT: Normocephalic. Atraumatic. Mucous membranes dry with white material overlying pharynx and hard palate that was able to be scraped off with tongue depressor. NECK: Supple, trachea midline. No JVD or lymphadenopathy. CARDIOVASCULAR: Regular rate and rhythm without obvious murmurs, gallops, or rubs. RESPIRATORY: Breath sounds equal bilaterally. No accessory muscle use. CTAB. GASTROINTESTINAL: Abdomen obese, soft, ventral hernia that is reducible, non- tender, nondistended. BS WNL. GENITOURINARY: Scrotum nonedematous, urethral meatus without erythema or discharge MUSCULOSKELETAL: No cyanosis or edema. Strength grossly WNL. BACK: Nontender without obvious deformity. No CVA tenderness. NEURO/PSYCH: Afocal. Awake, alert, and oriented x3. <Joshua Shah O - 06/11/18 12:20> Results - Labs Result diagrams: 06/12/18 07:12 06/12/18 07:12 <Toni Whitten - 06/12/18 14:20> Abnormal lab results 06/11/18 06/11/18 06/11/18 Range/Units 17:28 19:05 21:18 RBC (4.50-5.90) mil/mm3 Hgb (13.0-17.0) gm/dL Hct (39.0-51.0) % [place] % (Auto) (0.0-8.0) % Eos % (Auto) (0.0-4.0) % Potassium (3.5-5.1) meq/L Chloride (98-107) meq/L Carbon Dioxide (21.0-32.0) meq/L BUN (7-18) mg/dL Creatinine (0.60-1.30) mg/dL Estimated GFR (>89) mL/min POC Glucose 304 H 375 H (68-110) mg/dl Random Glucose (74-106) mg/dL Direct Bilirubin (0.0-0.2) mg/dL AST (15-37) U/L ALT (12-78) U/L Alkaline Phosphatase (45-117) U/L Troponin I 0.17 H (0.02-0.05) ng/mL 06/11/18 06/12/18 06/12/18 Range/Units 23:19 03:55 07:12 RBC 2.94 L (4.50-5.90) mil/mm3 Hgb 8.4 L (13.0-17.0) gm/dL Hct 26.3 L (39.0-51.0) % [place] % (Auto) 9.6 H (0.0-8.0) % Eos % (Auto) 4.7 H (0.0-4.0) % Potassium (3.5-5.1) meq/L Chloride (98-107) meq/L Carbon Dioxide (21.0-32.0) meq/L BUN (7-18) mg/dL Creatinine (0.60-1.30) mg/dL Estimated GFR (>89) mL/min POC Glucose 227 H (68-110) mg/dl Random Glucose (74-106) mg/dL Direct Bilirubin (0.0-0.2) mg/dL AST (15-37) U/L ALT (12-78) U/L Alkaline Phosphatase (45-117) U/L Troponin I 0.15 H (0.02-0.05) ng/mL 06/12/18 06/12/18 06/12/18 Range/Units 07:12 07:12 07:54 RBC (4.50-5.90) mil/mm3 Hgb (13.0-17.0) gm/dL Hct (39.0-51.0) % [place] % (Auto) (0.0-8.0) % Eos % (Auto) (0.0-4.0) % Potassium 3.1 L (3.5-5.1) meq/L Chloride 96 L D (98-107) meq/L Carbon Dioxide 36.9 H (21.0-32.0) meq/L BUN 43 H (7-18) mg/dL Creatinine 1.83 H (0.60-1.30) mg/dL Estimated GFR 38 L (>89) mL/min POC Glucose 183 H (68-110) mg/dl Random Glucose 180 H D (74-106) mg/dL Direct Bilirubin 0.3 H (0.0-0.2) mg/dL AST 44 H (15-37) U/L ALT 270 H (12-78) U/L Alkaline Phosphatase 422 H (45-117) U/L Troponin I 0.13 H (0.02-0.05) ng/mL 06/12/18 Range/Units 12:27 RBC (4.50-5.90) mil/mm3 Hgb (13.0-17.0) gm/dL Hct (39.0-51.0) % [place] % (Auto) (0.0-8.0) % Eos % (Auto) (0.0-4.0) % Potassium (3.5-5.1) meq/L Chloride (98-107) meq/L Carbon Dioxide (21.0-32.0) meq/L BUN (7-18) mg/dL Creatinine (0.60-1.30) mg/dL Estimated GFR (>89) mL/min POC Glucose 228 H (68-110) mg/dl Random Glucose (74-106) mg/dL Direct Bilirubin (0.0-0.2) mg/dL AST (15-37) U/L ALT (12-78) U/L Alkaline Phosphatase (45-117) U/L Troponin I (0.02-0.05) ng/mL Short CBC 06/12/18 Range/Units 07:12 WBC 7.1 (4.0-11.0) th/mm3 Hgb 8.4 L (13.0-17.0) gm/dL Hct 26.3 L (39.0-51.0) % Plt Count 180 (150-450) th/mm3 BMP 06/12/18 07:12 Sodium 138 Potassium 3.1 L Chloride 96 L D Carbon Dioxide 36.9 H BUN 43 H Creatinine 1.83 H Calcium 8.8 Cardiac Enzymes 06/11/18 06/11/18 06/12/18 Range/Units 19:05 23:19 07:12 Total Creatine Kinase 51 47 (39-308) U/L Troponin I 0.17 H 0.15 H 0.13 H (0.02-0.05) ng/mL Liver Function 06/12/18 Range/Units 07:12 Total Bilirubin 0.7 (0.2-1.0) mg/dL Direct Bilirubin 0.3 H (0.0-0.2) mg/dL AST 44 H (15-37) U/L ALT 270 H (12-78) U/L Alkaline Phosphatase 422 H (45-117) U/L Albumin 3.4 (3.4-5.0) g/dL <Young,Toni L - 06/12/18 14:20> Abnormal lab results 06/11/18 06/11/18 06/11/18 Range/Units 07:50 07:51 07:51 RBC 2.90 L (4.50-5.90) mil/mm3 Hgb 8.7 L (13.0-17.0) gm/dL Hct 26.0 L (39.0-51.0) % [place] % (Auto) 11.1 H (0.0-8.0) % [place] # (Auto) 1.0 H (0.0-0.9) th/mm3 Sodium 132 L (136-145) meq/L Chloride 88 L (98-107) meq/L Carbon Dioxide 33.9 H (21.0-32.0) meq/L BUN 53 H (7-18) mg/dL Creatinine 2.18 H (0.60-1.30) mg/dL Estimated GFR 31 L (>89) mL/min POC Glucose 551 H* (68-110) mg/dl Random Glucose 485 H* (74-106) mg/dL AST 63 H (15-37) U/L ALT 353 H (12-78) U/L Alkaline Phosphatase 354 H (45-117) U/L Troponin I 0.12 H (0.02-0.05) ng/mL Urine Occult Blood (Negative) Urine WBC (0-5) /hpf 06/11/18 06/11/18 Range/Units 09:00 09:34 RBC (4.50-5.90) mil/mm3 Hgb (13.0-17.0) gm/dL Hct (39.0-51.0) % [place] % (Auto) (0.0-8.0) % [place] # (Auto) (0.0-0.9) th/mm3 Sodium (136-145) meq/L Chloride (98-107) meq/L Carbon Dioxide (21.0-32.0) meq/L BUN (7-18) mg/dL Creatinine (0.60-1.30) mg/dL Estimated GFR (>89) mL/min POC Glucose 412 H (68-110) mg/dl Random Glucose (74-106) mg/dL AST (15-37) U/L ALT (12-78) U/L Alkaline Phosphatase (45-117) U/L Troponin I (0.02-0.05) ng/mL Urine Occult Blood Small H (Negative) Urine WBC 6 H (0-5) /hpf Short CBC 06/11/18 Range/Units 07:51 WBC 8.9 (4.0-11.0) th/mm3 Hgb 8.7 L (13.0-17.0) gm/dL Hct 26.0 L (39.0-51.0) % Plt Count 197 (150-450) th/mm3 BMP 06/11/18 07:51 Sodium 132 L Potassium 3.8 Chloride 88 L Carbon Dioxide 33.9 H BUN 53 H Creatinine 2.18 H Calcium 8.9 Cardiac Enzymes 06/11/18 Range/Units 07:51 Total Creatine Kinase 69 (39-308) U/L Troponin I 0.12 H (0.02-0.05) ng/mL Liver Function 06/11/18 Range/Units 07:51 Total Bilirubin 1.0 (0.2-1.0) mg/dL AST 63 H (15-37) U/L ALT 353 H (12-78) U/L Alkaline Phosphatase 354 H (45-117) U/L Albumin 3.7 (3.4-5.0) g/dL Urine 06/11/18 Range/Units 09:00 Urine Color Yellow (Yellw/Straw) Urine Clarity Clear (Clear) Urine pH 6.0 (5.0-8.5) Ur Specific [place] 1.018 (1.002-1.035) Urine Protein 500 or greater (Neg-Trace) mg/dL Urine Glucose (UA) 500 or greater (Negative) mg/dL <Joshua Shah 06/11/18 10:30> - Imaging Impressions Chest X-Ray 06/11/18 07:55 CONCLUSION: 1. Cardiomegaly with positive fluid balance. 2. Persistent patchy bilateral lower lobe airspace disease. <Joshua Shah 06/11/18 10:30> Caprini VTE Risk Assessment Caprini VTE Risk Assessment: Moderate/High Risk (score >= 2) <Joshua Shah 06/11/18 12:49> Caprini Risk Assessment Model: Point Value = 1 Point Value = 2 Point Value = 3 Point Value = 5 Age 41-60 Minor surgery BMI > 25 kg/m2 Swollen legs Varicose veins or History of unexplained or recurrent spontaneous Oral contraceptives or hormone replacement Sepsis (< 1 month) Serious lung disease, including pneumonia (< 1 month) Abnormal pulmonary function Acute myocardial infarction Congestive heart failure (< 1 month) History of inflammatory bowel disease Medical patient at bed rest Age 61-74 Arthroscopic surgery Major open surgery (> 45 min) Laparoscopic surgery (> 45 min) Malignancy Confined to bed (> 72 hours) Immobilizing plaster cast Central venous access Age >= 75 History of VTE Family history of VTE Factor V Leiden Prothrombin [id number] Lupus anticoagulant Anticardiolipin antibodies Elevated serum homocysteine Heparin-induced thrombocytopenia Other congenital or acquired thrombophilia Stroke (< 1 month) Elective arthroplasty Hip, pelvis, or leg fracture Acute spinal cord injury (< 1 month) <Toni Whitten - 06/12/18 14:20> Point Value = 1 Point Value = 2 Point Value = 3 Point Value = 5 Age 41-60 Minor surgery BMI > 25 kg/m2 Swollen legs Varicose veins or History of unexplained or recurrent spontaneous Oral contraceptives or hormone replacement Sepsis (< 1 month) Serious lung disease, including pneumonia (< 1 month) Abnormal pulmonary function Acute myocardial infarction Congestive heart failure (< 1 month) History of inflammatory bowel disease Medical patient at bed rest Age 61-74 Arthroscopic surgery Major open surgery (> 45 min) Laparoscopic surgery (> 45 min) Malignancy Confined to bed (> 72 hours) Immobilizing plaster cast Central venous access Age >= 75 History of VTE Family history of VTE Factor V Leiden Prothrombin [id number] Lupus anticoagulant Anticardiolipin antibodies Elevated serum homocysteine Heparin-induced thrombocytopenia Other congenital or acquired thrombophilia Stroke (< 1 month) Elective arthroplasty Hip, pelvis, or leg fracture Acute spinal cord injury (< 1 month) <Joshua Shah - 06/11/18 10:30> Prophylaxis Regimen: Total Risk Factor Score Risk Level Prophylaxis Regimen 0-1 Low Early ambulation 2 Moderate Order ONE of the following: *Sequential Compression Device (SCD) *Heparin 5000 units SQ BID 3-4 Higher Order ONE of the following medications: *Heparin 5000 units SQ TID *Enoxaparin/Lovenox 40 mg SQ daily (WT < 150 kg, CrCl > 30 mL/min) *Enoxaparin/Lovenox 30 mg SQ daily (WT < 150 kg, CrCl > 10-29 mL/min) *Enoxaparin/Lovenox 30 mg SQ BID (WT < 150 kg, CrCl > 30 mL/min) AND/OR *Sequential Compression Device (SCD) 5 or more Highest Order ONE of the following medications: *Heparin 5000 units SQ TID (Preferred with Epidurals) *Enoxaparin/Lovenox 40 mg SQ daily (WT < 150 kg, CrCl > 30 mL/min) *Enoxaparin/Lovenox 30 mg SQ daily (WT < 150 kg, CrCl > 10-29 mL/min) *Enoxaparin/Lovenox 30 mg SQ BID (WT < 150 kg, CrCl > 30 mL/min) AND *Sequential Compression Device (SCD) <Toni Whitten - 06/12/18 14:20> Total Risk Factor Score Risk Level Prophylaxis Regimen 0-1 Low Early ambulation 2 Moderate Order ONE of the following: *Sequential Compression Device (SCD) *Heparin 5000 units SQ BID 3-4 Higher Order ONE of the following medications: *Heparin 5000 units SQ TID *Enoxaparin/Lovenox 40 mg SQ daily (WT < 150 kg, CrCl > 30 mL/min) *Enoxaparin/Lovenox 30 mg SQ daily (WT < 150 kg, CrCl > 10-29 mL/min) *Enoxaparin/Lovenox 30 mg SQ BID (WT < 150 kg, CrCl > 30 mL/min) AND/OR *Sequential Compression Device (SCD) 5 or more Highest Order ONE of the following medications: *Heparin 5000 units SQ TID (Preferred with Epidurals) *Enoxaparin/Lovenox 40 mg SQ daily (WT < 150 kg, CrCl > 30 mL/min) *Enoxaparin/Lovenox 30 mg SQ daily (WT < 150 kg, CrCl > 10-29 mL/min) *Enoxaparin/Lovenox 30 mg SQ BID (WT < 150 kg, CrCl > 30 mL/min) AND *Sequential Compression Device (SCD) <Joshua Shah - 06/11/18 10:30> Assessment and Plan - Assessment (1) Nausea and vomiting Code(s): R11.2 - Nausea with vomiting, unspecified Status: Acute (2) Transaminitis Code(s): R74.0 - Nonspecific elevation of levels of transaminase and lactic acid dehydrogenase [LDH] Status: Acute (3) DM2 (diabetes mellitus, type 2) Code(s): E11.9 - Type 2 diabetes mellitus without complications Status: Acute (4) HTN (hypertension) Code(s): I10 - Essential (primary) hypertension Status: Acute (5) CHF (congestive heart failure), NYHA class IV Code(s): I50.9 - Heart failure, unspecified Status: Acute (6) Chronic kidney disease Code(s): N18.9 - Chronic kidney disease, unspecified Status: Acute (7) CAD (coronary artery disease) Code(s): I25.10 - Atherosclerotic heart disease of [place] coronary artery without angina pectoris Status: Acute (8) Hyperlipidemia Code(s): E78.5 - Hyperlipidemia, unspecified Status: Acute (9) COPD (chronic obstructive pulmonary disease) Code(s): J44.9 - Chronic obstructive pulmonary disease, unspecified Status: Acute (10) Anemia Code(s): D64.9 - Anemia, unspecified Status: Acute (11) Diabetic neuropathy Code(s): E11.40 - Type 2 diabetes mellitus with diabetic neuropathy, unspecified Status: Acute (12) Nutrition, metabolism, and development symptoms Code(s): R63.8 - Other symptoms and signs concerning food and fluid intake Status: Acute <Toni Whitten - 06/12/18 14:20> (1) Nausea and vomiting Code(s): R11.2 - Nausea with vomiting, unspecified Status: Acute Plan: This patient is a 63-year-old male with a history of CHF, diabetes mellitus, hypertension, chronic kidney disease, coronary artery disease, who presents the ED with a 3-day history of nausea vomiting and no bowel movement. Patient has no abdominal pain or blood per rectum. Differential diagnosis includes small bowel obstruction, gastroparesis, gastroenteritis versus, and liver failure. -CT of the abdomen and pelvis without contrast showed 1. Bilateral pleural effusions worse on the right and bibasilar consolidation worse on the right. 2. There are lymph nodes in the pelvis bilaterally worse on the right nonspecific, however metastatic is not excluded. 3. Haziness to perinephric fat plane extending to left Gerota's fascia possibly chronic, however inflammatory process is difficult to exclude and the exact etiology is not certain. -CXR showed 1. Cardiomegaly with positive fluid balance. 2. Persistent patchy bilateral lower lobe airspace disease. Plan: -SBO ruled out with abd CT -Begin metoclopramide 10 BID -Zofran as needed for nausea -Protonix 40 mg daily -Fluid resuscitate at 200 mL an hour until tomorrow -Liquid diet as tolerated -Monitor electrolytes closely (2) Transaminitis Code(s): R74.0 - Nonspecific elevation of levels of transaminase and lactic acid dehydrogenase [LDH] Status: Acute Plan: Patient has elevated AST and ALT on admission of an AST of 63 and an ALT of 353 with an alkaline phosphatase of 354. Patient underwent abdominal ultrasound on June 01, 2018 that showed echogenic liver consistent with hepatic steatosis , mild gallbladder wall thickening and trace ascites. -Patient has history of hepatic steatosis diagnosed on imaging on last admission -Trend LFTs (3) DM2 (diabetes mellitus, type 2) Code(s): E11.9 - Type 2 diabetes mellitus without complications Status: Acute Plan: Blood sugars 485 on admission -Levemir 30 units subcu twice daily -May resume home dose on patient is tolerating food p.o. -N.p.o. until small bowel obstruction has been ruled out -Monitor Potassium (4) HTN (hypertension) Code(s): I10 - Essential (primary) hypertension Status: Acute Plan: Hold home medications due to inability to swallow p.o. -Begin hydralazine as needed for systolic blood pressures above 160 (5) CHF (congestive heart failure), NYHA class IV Code(s): I50.9 - Heart failure, unspecified Status: Acute Plan: Patient currently volume depleted. -Hold Lasix for now resume tomorrow -Continue volume resuscitation at 200ml/hr -Monitor for signs of fluid overload Once patient appropriately fluid resuscitated begin below: -Fluid restriction 1.5 L -Salt restriction 2 g -po Lasix 40mg BID (6) Chronic kidney disease Code(s): N18.9 - Chronic kidney disease, unspecified Status: Acute Plan: Creatinine stable at baseline -Trend creatinine (7) CAD (coronary artery disease) Code(s): I25.10 - Atherosclerotic heart disease of [place] coronary artery without angina pectoris Status: Acute Plan: Patient unable to tolerate meds p.o. Patient with history of previous GA. -Continue medications once patient can tolerate p.o. -Hold aspirin and Plavix -Hold atorvastatin 80 mg p.o. HS (8) Hyperlipidemia Code(s): E78.5 - Hyperlipidemia, unspecified Status: Acute Plan: Hold atorvastatin 80 mg until patient can tolerate p.o. (9) COPD (chronic obstructive pulmonary disease) Code(s): J44.9 - Chronic obstructive pulmonary disease, unspecified Status: Acute Plan: Albuterol neb as needed Ipratropium bromide 1 puff twice daily scheduled Duo nebs every 6 as needed O2 as needed Incentive spirometry (10) Anemia Code(s): D64.9 - Anemia, unspecified Status: Acute Plan: Stable Normocytic (11) Diabetic neuropathy Code(s): E11.40 - Type 2 diabetes mellitus with diabetic neuropathy, unspecified Status: Acute Plan: Resume Continue gabapentin 200 mg 3 times daily patient can tolerate p.o., hold for now (12) Nutrition, metabolism, and development symptoms Code(s): R63.8 - Other symptoms and signs concerning food and fluid intake Status: Acute Plan: Fluids: Lactated Ringer's at 200 mg/h Electrolytes: Replete as needed Nutrition: N.p.o. for now DVT prophylaxis: Heparin subcu <Joshua Shah - 06/11/18 18:03> - Attending Attestation The exam, history, and the medical decision-making described in the above note were completed with the assistance of the resident physician. I reviewed and agree with the findings presented. I attest that I had a [id number] encounter with the patient on the same day, and personally performed and documented my assessment and findings in the medical record. Seen with Dr. Mancia and Dr. Upton. This patient with an extensive list of comorbidities presents with significantly elevated glucose but no other findings supportive of HHS, along with nausea/vomiting and inability to tolerate his home medications. Workup for bowel obstruction is negative. No chest pain or shortness of breath. No abdominal pain, and abdominal exam is benign. Suspecting that he is having slowed gut motility/gastroparesis from his uncontrolled diabetes. Has not been taking his insulin due to not feeling well. Will admit and continue workup and management. <Toni Whitten L - 06/12/18 14:20> <Gavino Joshua Schmitt O - Last Filed: 06/11/18 18:03> (3) DM2 (diabetes mellitus, type 2) Qualifiers: Diabetes mellitus penitentiary insulin use: with drop wire hanger use Diabetes mellitus complication status: with circulatory complication Diabetes mellitus complication detail: with other circulatory complications Qualified Code(s): E11.59 - Type 2 diabetes mellitus with other circulatory complications; Z79.4 - [facility] (current) use of insulin (4) HTN (hypertension) Qualifiers: Hypertension type: essential hypertension Qualified Code(s): I10 - Essential (primary) hypertension (5) CHF (congestive heart failure), NYHA class IV Qualifiers: Congestive heart failure type: combined Congestive heart failure chronicity: acute on chronic Qualified Code(s): I50.43 - Acute on chronic combined systolic (congestive) and diastolic (congestive) heart failure (6) Chronic kidney disease Qualifiers: Chronic kidney disease stage: unspecified stage Qualified Code(s): N18.9 - Chronic kidney disease, unspecified (7) CAD (coronary artery disease) Qualifiers: Coronary Disease-Associated Artery/Lesion type: unspecified vessel or lesion type (8) Hyperlipidemia Qualifiers: Hyperlipidemia type: unspecified Qualified Code(s): E78.5 - Hyperlipidemia, unspecified (10) Anemia Qualifiers: Anemia type: unspecified type Qualified Code(s): D64.9 - Anemia, unspecified <Toni Whitten L - Last Filed: 06/12/18 14:20> (3) DM2 (diabetes mellitus, type 2) Qualifiers: Diabetes mellitus drop wire hanger insulin use: with penitentiary use Diabetes mellitus complication status: with circulatory complication Diabetes mellitus complication detail: with other circulatory complications Qualified Code(s): E11.59 - Type 2 diabetes mellitus with other circulatory complications; 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 (4) HTN (hypertension) Qualifiers: Hypertension type: essential hypertension Qualified Code(s): I10 - Essential (primary) hypertension (5) CHF (congestive heart failure), NYHA class IV Qualifiers: Congestive heart failure type: combined Congestive heart failure chronicity: acute on chronic Qualified Code(s): I50.43 - Acute on chronic combined systolic (congestive) and diastolic (congestive) heart failure (6) Chronic kidney disease Qualifiers: Chronic kidney disease stage: unspecified stage Qualified Code(s): N18.9 - Chronic kidney disease, unspecified (7) CAD (coronary artery disease) Qualifiers: Coronary Disease-Associated Artery/Lesion type: unspecified vessel or lesion type (8) Hyperlipidemia Qualifiers: Hyperlipidemia type: unspecified Qualified Code(s): E78.5 - Hyperlipidemia, unspecified (10) Anemia Qualifiers: Anemia type: unspecified type Qualified Code(s): D64.9 - Anemia, unspecified <Joshua Shah O - Last Filed: 06/11/18 18:03> (3) DM2 (diabetes mellitus, type 2) Qualifiers: Diabetes mellitus penitentiary insulin use: with penitentiary use Diabetes mellitus complication status: with circulatory complication Diabetes mellitus complication detail: with other circulatory complications Qualified Code(s): E11.59 - Type 2 diabetes mellitus with other circulatory complications; 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 (4) HTN (hypertension) Qualifiers: Hypertension type: essential hypertension Qualified Code(s): I10 - Essential (primary) hypertension (5) CHF (congestive heart failure), NYHA class IV Qualifiers: Congestive heart failure type: combined Congestive heart failure chronicity: acute on chronic Qualified Code(s): I50.43 - Acute on chronic combined systolic (congestive) and diastolic (congestive) heart failure (6) Chronic kidney disease Qualifiers: Chronic kidney disease stage: unspecified stage Qualified Code(s): N18.9 - Chronic kidney disease, unspecified (7) CAD (coronary artery disease) Qualifiers: Coronary Disease-Associated Artery/Lesion type: unspecified vessel or lesion type (8) Hyperlipidemia Qualifiers: Hyperlipidemia type: unspecified Qualified Code(s): E78.5 - Hyperlipidemia, unspecified (10) Anemia Qualifiers: Anemia type: unspecified type Qualified Code(s): D64.9 - Anemia, unspecified <FishToni Manzo - Last Filed: 06/12/18 14:20> (3) DM2 (diabetes mellitus, type 2) Qualifiers: Diabetes mellitus drop wire hanger insulin use: with penitentiary use Diabetes mellitus complication status: with circulatory complication Diabetes mellitus complication detail: with other circulatory complications Qualified Code(s): E11.59 - Type 2 diabetes mellitus with other circulatory complications; 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 (4) HTN (hypertension) Qualifiers: Hypertension type: essential hypertension Qualified Code(s): I10 - Essential (primary) hypertension (5) CHF (congestive heart failure), NYHA class IV Qualifiers: Congestive heart failure type: combined Congestive heart failure chronicity: acute on chronic Qualified Code(s): I50.43 - Acute on chronic combined systolic (congestive) and diastolic (congestive) heart failure (6) Chronic kidney disease Qualifiers: Chronic kidney disease stage: unspecified stage Qualified Code(s): N18.9 - Chronic kidney disease, unspecified (7) CAD (coronary artery disease) Qualifiers: Coronary Disease-Associated Artery/Lesion type: unspecified vessel or lesion type (8) Hyperlipidemia Qualifiers: Hyperlipidemia type: unspecified Qualified Code(s): E78.5 - Hyperlipidemia, unspecified (10) Anemia Qualifiers: Anemia type: unspecified type Qualified Code(s): D64.9 - Anemia, unspecified
[2018-06-11] MEDS ORDERED: Acetaminophen 325 MG Tablet PO PRN (10:54)
[2018-06-11] MEDS ORDERED: Bisacodyl 10 MG Supp RECTAL PRN (10:54)
[2018-06-11] MEDS ORDERED: Dextrose 50% in Water 50 ML Vial IV.PUSH PRN ×2 (10:54→18:25)
[2018-06-11] MEDS ORDERED: hydrALAZINE HCl Inj 20 MG/ML Vial IV.PUSH PRN (11:32)
--- NOTE | 2018-06-11 12:04 | CT ---
EXAM DATE: 06/11/2018 11:53 AM EST AGE/SEX: 63 years / Male INDICATIONS: Nausea and vomiting for six days. CLINICAL DATA: This is the patient's initial encounter. Patient reports that signs and symptoms have been present for 4 - 6 days and indicates a pain score of 2/10. MEDICAL/SURGICAL HISTORY: Chronic obstructive pulmonary disease. Congestive heart failure. Di abetes. renal failure, hypertension None. RADIATION DOSE: 10.56 CTDI (mGy) COMPARISON: No prior exams available for comparison. TECHNIQUE: Multiple contiguous axial images were obtained through the abdomen. Images were obtained using multiple row detector helical technique. Using automated exposure control and adjustment of the mA and/or kV according to patient size, radiation dose was kept as low as reasonably achievable to o btain optimal diagnostic quality images. DICOM format image data is available electronically for rev iew and comparison. FINDINGS: Abdomen CT: The liver, spleen, pancreas, kidneys, adrenals are unremarkable. There is no evidence for any appreci able pathological adenopathy, free fluid, or bowel obstruction. There is a large right pleural effus ion, small left pleural effusion and right lung base consolidation. Slight left lung base atelectasis and/or infiltrate is also seen. There are atherosclerotic calcifications involving the aorta and bree ac arteries chronic in nature. Tiny pericardial effusion is seen probably of no clinical significance . There is haziness of the fat planes in the perinephric space of uncertain etiology possibly chroni c with slight extension into the left Gerota's fascia. Small splenic splenule is identified. Pelvic CT: There is no evidence for mass, abscess formation within the pelvis. Approximate 3.2 cm right externa l iliac chain lymph node is seen with approximate 1.5 cm left external iliac chain lymph node nonspec ific, however metastatic disease should be excluded. There is prominent fat within bilateral inguinal canals without evidence for bowel herniation. The prostate gland measures 3.4 x 3.9 cm in AP and transverse diameters inhomogeneous in appearance and nonspecific. CONCLUSION: 1. Bilateral pleural effusions worse on the right and bibasilar consolidation worse on the right. 2. There are lymph nodes in the pelvis bilaterally worse on the right nonspecific, however metastati c is not excluded. 3. Haziness to perinephric fat plane extending to left Gerota's fascia possibly chronic, however inf lammatory process is difficult to exclude and the exact etiology is not certain. Electronically signed by: Thea Pathak MD Board Certified Radiologist 06/11/2018 12:03 PM EST
[2018-06-11] MEDS: Heparin - SQ 10,000 UNITS/ML Vial SQ SCH (12:36)
[2018-06-11] MEDS: Pantoprazole Inj 40 MG Vial IV.PUSH SCH (13:02)
[2018-06-11] MEDS: Tiotropium Bromide 18 MCG/ACT Inhaler INH SCH (13:02)
--- NOTE | 2018-06-11 17:21 | ECG ---
Date Performed: 06/11/2018 Time Performed: 07:59:00 PTAGE: 63 years EKG: Sinus rhythm WITH OCCASIONAL ECTOPIC PREMATURE COMPLEXES MODERATE INTRAVENTRICULAR CONDUCTION DELAY NONSPECIFIC S T & T-WAVE ABNORMALITY When compared to previous tracing, premature ventricular Contractions are less frequent. BORDERLINE ECG PREVIOUS TRACING : 05/23/2018 00.19.48 DOCTOR: Peterson Montiel Interpretating Date/Time 06/11/2018 17:19:38
[2018-06-11] MEDS ORDERED: traZODone 50 MG Tablet PO PRN (18:32)
[2018-06-11 19:57] LABS: Troponin I 0.17 ng/mL (0.02-0.05)
[2018-06-11] MEDS ORDERED: Insulin Detemir Inj 1,000 UNIT/10 ML Vial SQ SCH (21:00)
[2018-06-11] MEDS: Insulin Detemir Inj 1,000 UNIT/10 ML Vial SQ SCH (21:32)
[2018-06-11] MEDS: Senna/Docusate Sodium 8.6/50 MG Tablet PO SCH (21:33)
[2018-06-11] MEDS: Insulin NovoLOG Aspart Correctional Sugar Inj SQ SCH (21:33)
[2018-06-12 00:08] LABS: Troponin I 0.15 ng/mL (0.02-0.05)
[2018-06-12] MEDS: Heparin - SQ 10,000 UNITS/ML Vial SQ SCH ×2 (04:10→13:33)
[2018-06-12] MEDS: Insulin NovoLOG Aspart Correctional Sugar Inj SQ SCH ×3 (04:11→13:32)
[2018-06-12 08:26] LABS: Baso # (Auto) 0.1 th/mm3 (0.0-0.2); Baso % (Auto) 0.8 % (0.0-2.0); Eos # (Auto) 0.3 th/mm3 (0.0-0.4); Eos % (Auto) 4.7 % (0.0-4.0); Hematocrit 26.3 % (39.0-51.0); Hemoglobin 8.4 gm/dL (13.0-17.0); Lymph # (Auto) 1.7 th/mm3 (1.0-4.8); Lymph % (Auto) 24.1 % (9.0-44.0); Mean Corpuscular HGB Conc 32.1 % (32.0-36.0); Mean Corpuscular Hemoglobin 28.7 pg (27.0-34.0); Mean Corpuscular Volume 89.4 fL (80.0-100.0); Mean Platelet Volume 8.8 fL (7.0-11.0); Mono # (Auto) 0.7 th/mm3 (0.0-0.9); Mono % (Auto) 9.6 % (0.0-8.0); Neut # (Auto) 4.3 th/mm3 (1.8-7.7); Neut % (Auto) 60.8 % (16.0-70.0); Platelet Count 180 th/mm3 (150-450); Red Blood Count 2.94 mil/mm3 (4.50-5.90); Red Cell Distribution Width 15.7 % (11.6-17.2); White Blood Count 7.1 th/mm3 (4.0-11.0)
[2018-06-12 08:43] LABS: Alanine Aminotransferase 270 U/L (12-78); Albumin 3.4 g/dL (3.4-5.0); Alkaline Phosphatase 422 U/L (45-117); Anion Gap 5 meq/L (5-15); Aspartate Aminotransferase 44 U/L (15-37); Blood Urea Nitrogen 43 mg/dL (7-18); Calcium 8.8 mg/dL (8.5-10.1); Carbon Dioxide 36.9 meq/L (21.0-32.0); Chloride 96 meq/L (98-107); Glomerular Filtration Rate 38 mL/min (>89); Glucose,Random 180 mg/dL (74-106); Potassium 3.1 meq/L (3.5-5.1); Sodium 138 meq/L (136-145)
[2018-06-12] MEDS ORDERED: Furosemide 40 MG Tablet PO SCH (09:00)
[2018-06-12] MEDS: Senna/Docusate Sodium 8.6/50 MG Tablet PO SCH (09:33)
[2018-06-12] MEDS: Tiotropium Bromide 18 MCG/ACT Inhaler INH SCH (09:34)
[2018-06-12] MEDS: Insulin Detemir Inj 1,000 UNIT/10 ML Vial SQ SCH (09:34)
[2018-06-12] MEDS ORDERED: Potassium Chloride 10 MEQ ER Capsule PO ONE (12:28)
--- NOTE | 2018-06-12 12:41 | P.PNFP ---
Addendum entered and electronically signed by Toni Ray MD, R3 06/12 13:48: Discharging with Rx for Reglan rather than Zofran. Original Note: Subjective Interval history: Patient denies any nausea or vomiting. He reports that he ate one pancake this morning and kept it down. He reports that he did not sleep well. He otherwise has no complaints at this time. We discussed the importance of continuing his home insulin, making adjustments when not eating, following up with cardiology, CTS. <Toni Melgar - 06/12/18 13:40> Results - Labs Result diagrams: 06/12/18 07:12 06/12/18 07:12 <Toni Whitten - 06/12/18 14:13> Abnormal lab results 06/11/18 06/11/18 06/11/18 Range/Units 17:28 19:05 21:18 RBC (4.50-5.90) mil/mm3 Hgb (13.0-17.0) gm/dL Hct (39.0-51.0) % [place] % (Auto) (0.0-8.0) % Eos % (Auto) (0.0-4.0) % Potassium (3.5-5.1) meq/L Chloride (98-107) meq/L Carbon Dioxide (21.0-32.0) meq/L BUN (7-18) mg/dL Creatinine (0.60-1.30) mg/dL Estimated GFR (>89) mL/min POC Glucose 304 H 375 H (68-110) mg/dl Random Glucose (74-106) mg/dL Direct Bilirubin (0.0-0.2) mg/dL AST (15-37) U/L ALT (12-78) U/L Alkaline Phosphatase (45-117) U/L Troponin I 0.17 H (0.02-0.05) ng/mL 06/11/18 06/12/18 06/12/18 Range/Units 23:19 03:55 07:12 RBC 2.94 L (4.50-5.90) mil/mm3 Hgb 8.4 L (13.0-17.0) gm/dL Hct 26.3 L (39.0-51.0) % [place] % (Auto) 9.6 H (0.0-8.0) % Eos % (Auto) 4.7 H (0.0-4.0) % Potassium (3.5-5.1) meq/L Chloride (98-107) meq/L Carbon Dioxide (21.0-32.0) meq/L BUN (7-18) mg/dL Creatinine (0.60-1.30) mg/dL Estimated GFR (>89) mL/min POC Glucose 227 H (68-110) mg/dl Random Glucose (74-106) mg/dL Direct Bilirubin (0.0-0.2) mg/dL AST (15-37) U/L ALT (12-78) U/L Alkaline Phosphatase (45-117) U/L Troponin I 0.15 H (0.02-0.05) ng/mL 06/12/18 06/12/18 06/12/18 Range/Units 07:12 07:12 07:54 RBC (4.50-5.90) mil/mm3 Hgb (13.0-17.0) gm/dL Hct (39.0-51.0) % [place] % (Auto) (0.0-8.0) % Eos % (Auto) (0.0-4.0) % Potassium 3.1 L (3.5-5.1) meq/L Chloride 96 L D (98-107) meq/L Carbon Dioxide 36.9 H (21.0-32.0) meq/L BUN 43 H (7-18) mg/dL Creatinine 1.83 H (0.60-1.30) mg/dL Estimated GFR 38 L (>89) mL/min POC Glucose 183 H (68-110) mg/dl Random Glucose 180 H D (74-106) mg/dL Direct Bilirubin 0.3 H (0.0-0.2) mg/dL AST 44 H (15-37) U/L ALT 270 H (12-78) U/L Alkaline Phosphatase 422 H (45-117) U/L Troponin I 0.13 H (0.02-0.05) ng/mL 06/12/18 Range/Units 12:27 RBC (4.50-5.90) mil/mm3 Hgb (13.0-17.0) gm/dL Hct (39.0-51.0) % [place] % (Auto) (0.0-8.0) % Eos % (Auto) (0.0-4.0) % Potassium (3.5-5.1) meq/L Chloride (98-107) meq/L Carbon Dioxide (21.0-32.0) meq/L BUN (7-18) mg/dL Creatinine (0.60-1.30) mg/dL Estimated GFR (>89) mL/min POC Glucose 228 H (68-110) mg/dl Random Glucose (74-106) mg/dL Direct Bilirubin (0.0-0.2) mg/dL AST (15-37) U/L ALT (12-78) U/L Alkaline Phosphatase (45-117) U/L Troponin I (0.02-0.05) ng/mL Short CBC 06/12/18 Range/Units 07:12 WBC 7.1 (4.0-11.0) th/mm3 Hgb 8.4 L (13.0-17.0) gm/dL Hct 26.3 L (39.0-51.0) % Plt Count 180 (150-450) th/mm3 BMP 06/12/18 07:12 Sodium 138 Potassium 3.1 L Chloride 96 L D Carbon Dioxide 36.9 H BUN 43 H Creatinine 1.83 H Calcium 8.8 Cardiac Enzymes 06/11/18 06/11/18 06/12/18 Range/Units 19:05 23:19 07:12 Total Creatine Kinase 51 47 (39-308) U/L Troponin I 0.17 H 0.15 H 0.13 H (0.02-0.05) ng/mL Liver Function 06/12/18 Range/Units 07:12 Total Bilirubin 0.7 (0.2-1.0) mg/dL Direct Bilirubin 0.3 H (0.0-0.2) mg/dL AST 44 H (15-37) U/L ALT 270 H (12-78) U/L Alkaline Phosphatase 422 H (45-117) U/L Albumin 3.4 (3.4-5.0) g/dL <Toni Whitten - 06/12/18 14:13> Abnormal lab results 06/11/18 06/11/18 06/11/18 Range/Units 17:28 19:05 21:18 RBC (4.50-5.90) mil/mm3 Hgb (13.0-17.0) gm/dL Hct (39.0-51.0) % [place] % (Auto) (0.0-8.0) % Eos % (Auto) (0.0-4.0) % Potassium (3.5-5.1) meq/L Chloride (98-107) meq/L Carbon Dioxide (21.0-32.0) meq/L BUN (7-18) mg/dL Creatinine (0.60-1.30) mg/dL Estimated GFR (>89) mL/min POC Glucose 304 H 375 H (68-110) mg/dl Random Glucose (74-106) mg/dL Direct Bilirubin (0.0-0.2) mg/dL AST (15-37) U/L ALT (12-78) U/L Alkaline Phosphatase (45-117) U/L Troponin I 0.17 H (0.02-0.05) ng/mL 06/11/18 06/12/18 06/12/18 Range/Units 23:19 03:55 07:12 RBC 2.94 L (4.50-5.90) mil/mm3 Hgb 8.4 L (13.0-17.0) gm/dL Hct 26.3 L (39.0-51.0) % [place] % (Auto) 9.6 H (0.0-8.0) % Eos % (Auto) 4.7 H (0.0-4.0) % Potassium (3.5-5.1) meq/L Chloride (98-107) meq/L Carbon Dioxide (21.0-32.0) meq/L BUN (7-18) mg/dL Creatinine (0.60-1.30) mg/dL Estimated GFR (>89) mL/min POC Glucose 227 H (68-110) mg/dl Random Glucose (74-106) mg/dL Direct Bilirubin (0.0-0.2) mg/dL AST (15-37) U/L ALT (12-78) U/L Alkaline Phosphatase (45-117) U/L Troponin I 0.15 H (0.02-0.05) ng/mL 06/12/18 06/12/18 06/12/18 Range/Units 07:12 07:12 07:54 RBC (4.50-5.90) mil/mm3 Hgb (13.0-17.0) gm/dL Hct (39.0-51.0) % [place] % (Auto) (0.0-8.0) % Eos % (Auto) (0.0-4.0) % Potassium 3.1 L (3.5-5.1) meq/L Chloride 96 L D (98-107) meq/L Carbon Dioxide 36.9 H (21.0-32.0) meq/L BUN 43 H (7-18) mg/dL Creatinine 1.83 H (0.60-1.30) mg/dL Estimated GFR 38 L (>89) mL/min POC Glucose 183 H (68-110) mg/dl Random Glucose 180 H D (74-106) mg/dL Direct Bilirubin 0.3 H (0.0-0.2) mg/dL AST 44 H (15-37) U/L ALT 270 H (12-78) U/L Alkaline Phosphatase 422 H (45-117) U/L Troponin I 0.13 H (0.02-0.05) ng/mL Short CBC 06/12/18 Range/Units 07:12 WBC 7.1 (4.0-11.0) th/mm3 Hgb 8.4 L (13.0-17.0) gm/dL Hct 26.3 L (39.0-51.0) % Plt Count 180 (150-450) th/mm3 BMP 06/12/18 07:12 Sodium 138 Potassium 3.1 L Chloride 96 L D Carbon Dioxide 36.9 H BUN 43 H Creatinine 1.83 H Calcium 8.8 Cardiac Enzymes 06/11/18 06/11/18 06/12/18 Range/Units 19:05 23:19 07:12 Total Creatine Kinase 51 47 (39-308) U/L Troponin I 0.17 H 0.15 H 0.13 H (0.02-0.05) ng/mL Liver Function 06/12/18 Range/Units 07:12 Total Bilirubin 0.7 (0.2-1.0) mg/dL Direct Bilirubin 0.3 H (0.0-0.2) mg/dL AST 44 H (15-37) U/L ALT 270 H (12-78) U/L Alkaline Phosphatase 422 H (45-117) U/L Albumin 3.4 (3.4-5.0) g/dL <Toni Melgar - 06/12/18 12:41> Physical Exam Vital signs: Vital Signs 06/11/18 15:49 06/11/18 16:00 06/11/18 20:00 Temperature 98.1 F 97.8 F Pulse Rate 79 80 82 Respiratory Rate 20 16 18 Blood Pressure 124/81 113/55 L Pulse Oximetry 98 94 L 06/12/18 00:00 06/12/18 00:08 06/12/18 03:33 Temperature 98.5 F Pulse Rate 76 76 84 Respiratory Rate 18 20 24 Blood Pressure 133/70 Pulse Oximetry 96 94 L 06/12/18 04:00 06/12/18 08:00 06/12/18 08:32 Temperature 97.7 F 97.8 F Pulse Rate 74 82 72 Respiratory Rate 18 17 18 Blood Pressure 152/73 H 158/74 H Pulse Oximetry 96 100 95 06/12/18 12:00 Temperature 97.9 F Pulse Rate 87 Respiratory Rate 17 Blood Pressure 157/77 H Pulse Oximetry 94 L Intake & Output 06/11/18 06/12/18 06/12/18 18:59 06:59 18:59 Intake Total 1000 / 1000 3320 / 3320 400 / 400 Output Total 1850 / 1850 625 / 625 Balance -850 / -850 2695 / 2695 400 / 400 Weight 92.5 kg 93.8 kg Intake: IV 1000 / 1000 2000 / 2000 400 / 400 LR 1000 mL Inj 1,000 ML @ 90 1000 / 1000 2000 / 2000 400 / 400 mls/hr IV.CONT .Q11H7M [facility] Rx#: [id number] Oral 1320 / 1320 Output: Urine 1850 / 1850 625 / 625 Other: # Voids 2 # Urine Diapers 1 Date of Last Bowel Movement 06/08/18 06/08/18 # Bowel Movements 0 Weight On Admission 92.5 kg <Toni Whitten - 06/12/18 14:13> Vital Signs 06/11/18 13:12 06/11/18 15:49 06/11/18 16:00 Temperature 98.2 F 98.1 F Pulse Rate 77 79 80 Respiratory Rate 19 20 16 Blood Pressure 139/74 124/81 Pulse Oximetry 98 98 01/04/19 20:00 06/12/18 00:00 06/12/18 00:08 Temperature 97.8 F 98.5 F Pulse Rate 82 76 76 Respiratory Rate 18 18 20 Blood Pressure 113/55 L 133/70 Pulse Oximetry 94 L 96 94 L 06/12/18 03:33 06/12/18 04:00 06/12/18 08:00 Temperature 97.7 F 97.8 F Pulse Rate 84 74 82 Respiratory Rate 24 18 17 Blood Pressure 152/73 H 158/74 H Pulse Oximetry 96 100 06/12/18 08:32 Temperature Pulse Rate 72 Respiratory Rate 18 Blood Pressure Pulse Oximetry 95 Intake & Output 06/11/18 06/12/18 06/12/18 18:59 06:59 18:59 Intake Total 1000 / 1000 3320 / 3320 400 / 400 Output Total 1850 / 1850 625 / 625 Balance -850 / -850 2695 / 2695 400 / 400 Weight 92.5 kg 93.8 kg Intake: IV 1000 / 1000 2000 / 2000 400 / 400 LR 1000 mL Inj 1,000 ML @ 90 1000 / 1000 2000 / 2000 400 / 400 mls/hr IV.CONT .Q11H7M [facility] Rx#: [id number] Oral 1320 / 1320 Output: Urine 1850 / 1850 625 / 625 Other: # Voids 2 # Urine Diapers 1 Date of Last Bowel Movement 06/08/18 06/08/18 # Bowel Movements 0 Weight On Admission 92.5 kg <Toni Melgar - 06/12/18 12:41> Narrative: GENERAL: Well-nourished, well-developed patient with intermittent cough but in no acute distress. SKIN: Significant dryness and evidence of venous stasis on anterior shins bilaterally. EYES: No scleral icterus. No injection or drainage. PERRLA. EOMI. HENT: Normocephalic. Atraumatic. Mucous membranes moist with benign oropharynx NECK: Supple, trachea midline. No JVD or lymphadenopathy. CARDIOVASCULAR: Regular rate and rhythm without obvious murmurs, gallops, or rubs. RESPIRATORY: Breath sounds equal bilaterally with some bibasilar crackles. No accessory muscle use. GASTROINTESTINAL: Abdomen obese, soft, ventral hernia that is reducible, non- tender, nondistended. BS WNL. MUSCULOSKELETAL: No cyanosis or edema. Strength grossly WNL. BACK: Nontender without obvious deformity. NEURO/PSYCH: Afocal. Awake, alert, and oriented x3. <Toni Melgar - 06/12/18 13:40> Assessment and Plan - Assessment (1) Nausea and vomiting Code(s): R11.2 - Nausea with vomiting, unspecified Status: Acute (2) Transaminitis Code(s): R74.0 - Nonspecific elevation of levels of transaminase and lactic acid dehydrogenase [LDH] Status: Acute (3) DM2 (diabetes mellitus, type 2) Code(s): E11.9 - Type 2 diabetes mellitus without complications Status: Acute (4) HTN (hypertension) Code(s): I10 - Essential (primary) hypertension Status: Acute (5) CHF (congestive heart failure), NYHA class IV Code(s): I50.9 - Heart failure, unspecified Status: Acute (6) Chronic kidney disease Code(s): N18.9 - Chronic kidney disease, unspecified Status: Acute (7) CAD (coronary artery disease) Code(s): I25.10 - Atherosclerotic heart disease of [place] coronary artery without angina pectoris Status: Acute (8) Hyperlipidemia Code(s): E78.5 - Hyperlipidemia, unspecified Status: Acute (9) COPD (chronic obstructive pulmonary disease) Code(s): J44.9 - Chronic obstructive pulmonary disease, unspecified Status: Acute (10) Anemia Code(s): D64.9 - Anemia, unspecified Status: Acute (11) Diabetic neuropathy Code(s): E11.40 - Type 2 diabetes mellitus with diabetic neuropathy, unspecified Status: Acute (12) Nutrition, metabolism, and development symptoms Code(s): R63.8 - Other symptoms and signs concerning food and fluid intake Status: Acute <Toni Whitten - 06/12/18 14:13> (1) Nausea and vomiting Code(s): R11.2 - Nausea with vomiting, unspecified Status: Acute Plan: This patient is a 63-year-old male with a history of CHF, diabetes mellitus, hypertension, chronic kidney disease, coronary artery disease, who presents the ED with a 3-day history of nausea vomiting and no bowel movement. Patient has no abdominal pain or blood per rectum. Differential diagnosis includes small bowel obstruction, gastroparesis, gastroenteritis versus, and liver failure. Most likely etiology of nausea and vomiting was that his blood sugar was not well controlled because of noncompliance with his insulin, which likely induced a temporary gastroparesis. -CT of the abdomen and pelvis without contrast showed 1. Bilateral pleural effusions worse on the right and bibasilar consolidation worse on the right. 2. There are lymph nodes in the pelvis bilaterally worse on the right nonspecific, however metastatic is not excluded. 3. Haziness to perinephric fat plane extending to left Gerota's fascia possibly chronic, however inflammatory process is difficult to exclude and the exact etiology is not certain. -CXR showed 1. Cardiomegaly with positive fluid balance. 2. Persistent patchy bilateral lower lobe airspace disease. Plan: -SBO ruled out with abd CT -metoclopramide 10 mg IV BID -Zofran as needed for nausea; will discharge with a supply of this medication; QTc 411 -Protonix 40 mg daily -Stop IV fluid -Diabetic diet as tolerated -Monitor electrolytes closely: will replete potassium orally today (2) Transaminitis Code(s): R74.0 - Nonspecific elevation of levels of transaminase and lactic acid dehydrogenase [LDH] Status: Acute Plan: Patient has elevated AST and ALT on admission of an AST of 63 and an ALT of 353 with an alkaline phosphatase of 354. Patient underwent abdominal ultrasound on June 01, 2018 that showed echogenic liver consistent with hepatic steatosis , mild gallbladder wall thickening and trace ascites. -Patient has history of hepatic steatosis diagnosed on imaging on last admission -LFTs trending down (3) DM2 (diabetes mellitus, type 2) Code(s): E11.9 - Type 2 diabetes mellitus without complications Status: Acute Plan: Blood sugars 485 on admission -Levemir 30 units subcu twice daily -Will resume home dose on patient as he is tolerating food p.o. -Monitor Potassium: replete potassium orally today (4) HTN (hypertension) Code(s): I10 - Essential (primary) hypertension Status: Acute Plan: Resume home medications as patient is tolerating p.o. -hydralazine as needed for systolic blood pressures above 160 (5) CHF (congestive heart failure), NYHA class IV Code(s): I50.9 - Heart failure, unspecified Status: Acute Plan: Patient currently volume depleted. -Resume Lasix -Stop volume resuscitation at 200ml/hr -Monitor for signs of fluid overload Patient appropriately fluid resuscitated, so will return to: -Fluid restriction 1.5 L -Salt restriction 2 g -po Lasix 40mg BID (6) Chronic kidney disease Code(s): N18.9 - Chronic kidney disease, unspecified Status: Acute Plan: Creatinine stable at baseline. -creatinine trending down: 2.18, 1.83 (7) CAD (coronary artery disease) Code(s): I25.10 - Atherosclerotic heart disease of [place] coronary artery without angina pectoris Status: Acute Plan: Patient now able to tolerate meds p.o. Patient with history of previous [place]. -Continue medications as patient can tolerate p.o. -Resume aspirin and Plavix -Resume atorvastatin 80 mg p.o. HS (8) Hyperlipidemia Code(s): E78.5 - Hyperlipidemia, unspecified Status: Acute Plan: Resume atorvastatin 80 mg as patient can tolerate p.o. (9) COPD (chronic obstructive pulmonary disease) Code(s): J44.9 - Chronic obstructive pulmonary disease, unspecified Status: Acute Plan: Albuterol neb as needed Ipratropium bromide 1 puff twice daily scheduled Duo nebs every 6 as needed O2 as needed Incentive spirometry (10) Anemia Code(s): D64.9 - Anemia, unspecified Status: Acute Plan: Stable Normocytic (11) Diabetic neuropathy Code(s): E11.40 - Type 2 diabetes mellitus with diabetic neuropathy, unspecified Status: Acute Plan: Resume Continue gabapentin 200 mg 3 times daily patient can tolerate p.o., hold for now (12) Nutrition, metabolism, and development symptoms Code(s): R63.8 - Other symptoms and signs concerning food and fluid intake Status: Acute Plan: Fluids: Stop Lactated Ringer's at 200 mg/h Electrolytes: Replete with KCl 40 mEq p.o. once now Nutrition: Diabetic diet DVT prophylaxis: Heparin subcu <Toni Melgar - 06/12/18 13:39> - Attending Attestation The exam, history, and the medical decision-making described in the above note were completed with the assistance of the resident physician. I reviewed and agree with the findings presented. I attest that I had a [id number] encounter with the patient on the same day, and personally performed and documented my assessment and findings in the medical record. Patient seen with Dr. Mancia and Dr. Penaloza this morning. I was present for the entire history and physical exam. <Toni Whitten - 06/12/18 14:13> <Toni Melgar A - Last Filed: 06/12/18 13:39> (3) DM2 (diabetes mellitus, type 2) Qualifiers: Diabetes mellitus halfway insulin use: with health safety coordinator use Diabetes mellitus complication status: with circulatory complication Diabetes mellitus complication detail: with other circulatory complications Qualified Code(s): E11.59 - Type 2 diabetes mellitus with other circulatory complications; Z79.4 - [facility] (current) use of insulin (4) HTN (hypertension) Qualifiers: Hypertension type: essential hypertension Qualified Code(s): I10 - Essential (primary) hypertension (5) CHF (congestive heart failure), NYHA class IV Qualifiers: Congestive heart failure type: combined Congestive heart failure chronicity: acute on chronic Qualified Code(s): I50.43 - Acute on chronic combined systolic (congestive) and diastolic (congestive) heart failure (6) Chronic kidney disease Qualifiers: Chronic kidney disease stage: unspecified stage Qualified Code(s): N18.9 - Chronic kidney disease, unspecified (7) CAD (coronary artery disease) Qualifiers: Coronary Disease-Associated Artery/Lesion type: unspecified vessel or lesion type (8) Hyperlipidemia Qualifiers: Hyperlipidemia type: unspecified Qualified Code(s): E78.5 - Hyperlipidemia, unspecified (10) Anemia Qualifiers: Anemia type: unspecified type Qualified Code(s): D64.9 - Anemia, unspecified <Toni Whitten - Last Filed: 06/12/18 14:13> (3) DM2 (diabetes mellitus, type 2) Qualifiers: Diabetes mellitus health safety coordinator insulin use: with health safety coordinator use Diabetes mellitus complication status: with circulatory complication Diabetes mellitus complication detail: with other circulatory complications Qualified Code(s): E11.59 - Type 2 diabetes mellitus with other circulatory complications; Z79.4 - [facility] (current) use of insulin (4) HTN (hypertension) Qualifiers: Hypertension type: essential hypertension Qualified Code(s): I10 - Essential (primary) hypertension (5) CHF (congestive heart failure), NYHA class IV Qualifiers: Congestive heart failure type: combined Congestive heart failure chronicity: acute on chronic Qualified Code(s): I50.43 - Acute on chronic combined systolic (congestive) and diastolic (congestive) heart failure (6) Chronic kidney disease Qualifiers: Chronic kidney disease stage: unspecified stage Qualified Code(s): N18.9 - Chronic kidney disease, unspecified (7) CAD (coronary artery disease) Qualifiers: Coronary Disease-Associated Artery/Lesion type: unspecified vessel or lesion type (8) Hyperlipidemia Qualifiers: Hyperlipidemia type: unspecified Qualified Code(s): E78.5 - Hyperlipidemia, unspecified (10) Anemia Qualifiers: Anemia type: unspecified type Qualified Code(s): D64.9 - Anemia, unspecified <Toni Melgar - Last Filed: 06/12/18 13:39> (3) DM2 (diabetes mellitus, type 2) Qualifiers: Diabetes mellitus halfway insulin use: with halfway use Diabetes mellitus complication status: with circulatory complication Diabetes mellitus complication detail: with other circulatory complications Qualified Code(s): E11.59 - Type 2 diabetes mellitus with other circulatory complications; Z79.4 - [facility] (current) use of insulin (4) HTN (hypertension) Qualifiers: Hypertension type: essential hypertension Qualified Code(s): I10 - Essential (primary) hypertension (5) CHF (congestive heart failure), NYHA class IV Qualifiers: Congestive heart failure type: combined Congestive heart failure chronicity: acute on chronic Qualified Code(s): I50.43 - Acute on chronic combined systolic (congestive) and diastolic (congestive) heart failure (6) Chronic kidney disease Qualifiers: Chronic kidney disease stage: unspecified stage Qualified Code(s): N18.9 - Chronic kidney disease, unspecified (7) CAD (coronary artery disease) Qualifiers: Coronary Disease-Associated Artery/Lesion type: unspecified vessel or lesion type (8) Hyperlipidemia Qualifiers: Hyperlipidemia type: unspecified Qualified Code(s): E78.5 - Hyperlipidemia, unspecified (10) Anemia Qualifiers: Anemia type: unspecified type Qualified Code(s): D64.9 - Anemia, unspecified <Toni Whitten - Last Filed: 06/12/18 14:13> (3) DM2 (diabetes mellitus, type 2) Qualifiers: Diabetes mellitus halfway insulin use: with health safety coordinator use Diabetes mellitus complication status: with circulatory complication Diabetes mellitus complication detail: with other circulatory complications Qualified Code(s): E11.59 - Type 2 diabetes mellitus with other circulatory complications; Z79.4 - [facility] (current) use of insulin (4) HTN (hypertension) Qualifiers: Hypertension type: essential hypertension Qualified Code(s): I10 - Essential (primary) hypertension (5) CHF (congestive heart failure), NYHA class IV Qualifiers: Congestive heart failure type: combined Congestive heart failure chronicity: acute on chronic Qualified Code(s): I50.43 - Acute on chronic combined systolic (congestive) and diastolic (congestive) heart failure (6) Chronic kidney disease Qualifiers: Chronic kidney disease stage: unspecified stage Qualified Code(s): N18.9 - Chronic kidney disease, unspecified (7) CAD (coronary artery disease) Qualifiers: Coronary Disease-Associated Artery/Lesion type: unspecified vessel or lesion type (8) Hyperlipidemia Qualifiers: Hyperlipidemia type: unspecified Qualified Code(s): E78.5 - Hyperlipidemia, unspecified (10) Anemia Qualifiers: Anemia type: unspecified type Qualified Code(s): D64.9 - Anemia, unspecified
[2018-06-12] MEDS: Pantoprazole Inj 40 MG Vial IV.PUSH SCH (13:32)
[2018-06-12 13:34] VITALS: BP 157/77; PULSE 87; RESP 17; TEMP 97.9; O2SAT 94
--- NOTE | 2018-06-12 14:46 | ECG ---
Date Performed: 06/11/2018 Time Performed: 18:14:38 PTAGE: 63 years EKG: Sinus rhythm with occasional PVC's Left axis deviation diffuse nonspecific ST-T changes slight intraventricular c onduction disturbance Since PREVIOUS TRACING , axis is somewhat more leftward, otherwise no significant change PREVIO US TRACIN06/11/2018 07.59 DOCTOR: Shan Worthington Interpretating Date/Time 06/12/2018 14:45:07
== END 2018-06-12 14:41 | disposition home or self-care (01) ==
LOC: NEDA 07:28 → NEPC 07:28 → N04 16:06
PROVIDERS: ADMIT Family Medicine; ATTEND Family Medicine
CPT/HCPCS: 71010; 71045; 74176; 80053; 81001; 82248; 82550; 82948; 82962; 83690; 83735; 84484; 85025; 90774; 90784; 93005; 94640; 94665; 96361; 96372; 96374; 96375; 96376; 99285; C8952; C9113; G0378; J1644; J1815; J2765; J7120